=== PATIENT | male | born 1960 | race Caucasian/White ===

== ENCOUNTER 2016-12-21 21:39 | Inpatient (IN) | payer MEDICAID, OTHER ==
[~2016-12-21] VITALS: Ht 177.8 cm; Wt 102.8 kg
[~2016-12-21 21:39] MED LIST: ABIL5TAB6 PO; CELE10TA PO; LISI-519 PO; METF-382 PO; ONETKIT9
[2016-12-21] MEDS ORDERED: SODIUM CHLOR 0.9% 1000 ML INJ 1,000 ML IV SCH ×2 (21:50→22:28)
[2016-12-21 21:54] VITALS: BP 131/72; PULSE 114; RESP 20; TEMP 101.8; O2SAT 99
--- NOTE | 2016-12-21 21:59 | PD ---
HPI Chief Complaint: General Weakness Time Seen by Provider: 21:54 Travel History International Travel<30 days: No Contact w/Intl Traveler<30days: No Traveled to known affect area: No History of Present Illness HPI 56 male that presents to the ED for evaluation of weakness and diarrhea for the past 5 days. Per patient she's not been able to do much because of the weakness and diarrhea. Patient has a history of diabetes, depression as well as a chronic wound to the left leg. Patient was recently put back on medications for both depression, diabetes and has an appointment with Dr. Back for wound care for the left chronic wound. This was done at the end of last month when he was seen at her clinic. Per patient his been compliant with the medications. He is not able to check his blood sugars for the past couple days as he cannot really stand up because of the discomfort and weakness. He denies any headache. No pain of any kind. Per patient the diarrhea is watery. No blood. Patient states having fevers and chills as well. No abdominal pain. No recent surgeries. No recent travel. No sick contacts. No new foods. PFSH Past Medical History Anxiety: Yes Depression: Yes Endocrine: Yes (diabetes) Ulcer: Yes (chronic left foot ulcer) Social History Alcohol Use: No Tobacco Use: No Substance Use: No Allergies-Medications (Allergen,Severity, Reaction): Coded Allergies: No Known Allergies (Unverified , 12/06/16) Reported Meds & Prescriptions Reported Meds & Active Scripts Active Onetouch Ultra 2 Glucose System (Device) 1 Kit Kit 1 Kit .ROUTE DIRECTED Celexa (Citalopram Hydrobromide) 10 Mg Tab 10 Mg PO DAILY Abilify (Aripiprazole) 5 Mg Tab 5 Mg PO DAILY Lisinopril 5 Mg Tab 5 Mg PO DAILY Metformin ER (Metformin HCl) 1,000 Mg Stephanie 1,000 Mg PO DAILY With evening meal Review of Systems Except as stated in HPI: all other systems reviewed are Neg Physical Exam Narrative GENERAL: SKIN: Warm and dry. HEAD: Atraumatic. Normocephalic. EYES: Pupils equal and round. No scleral icterus. No injection or drainage. ENT: No nasal bleeding or discharge. Mucous membranes pink and moist. Tongue is midline. No uvula deviation. NECK: Trachea midline. No JVD. CARDIOVASCULAR: Regular rate and rhythm. No murmurs, S3, S4. RESPIRATORY: No accessory muscle use. Clear to auscultation. Breath sounds equal bilaterally. GASTROINTESTINAL: Abdomen soft, non-tender, nondistended. Hepatic and splenic margins not palpable. MUSCULOSKELETAL: Extremities without clubbing, cyanosis, or edema. No obvious deformities. Full range of motion of the lower extremities. Patient does have a circular ulceration that appears to be chronic with some purulence and foul smell coming from it on the plantar aspect of the left foot. About 5 cm in diameter. Nontender. 2+ pulses bilaterally. NEUROLOGICAL: Awake and alert. No obvious cranial nerve deficits. Motor grossly within normal limits. Five out of 5 muscle strength in the arms and legs. Normal speech. PSYCHIATRIC: Appropriate mood and affect; insight and judgment normal. Data Data Last Documented VS Vital Signs Date Time Temp Pulse Resp B/P Pulse Ox O2 Delivery O2 Flow Rate FiO2 12/21/16 21:54 101.8 114 20 131/72 99 Room Air Orders Electrocardiogram (12/21/16 21:50) Complete Blood Count With Diff (12/21/16 21:50) Comprehensive Metabolic Panel (12/21/16 21:50) Prothrombin Time / Inr (Pt) (12/21/16 21:50) Act Partial Throm Time (Ptt) (12/21/16 21:50) Blood Culture (12/21/16 21:50) Lipase (12/21/16 21:50) Urinalysis - C+S If Indicated (12/21/16 21:50) Magnesium (Mg) (12/21/16 21:50) Wound Culture And Gram Stain (12/21/16 21:50) C Diff Toxin Pcr (12/21/16 21:50) Chest, Single Ap (12/21/16 21:50) Iv Access Insert/Monitor (12/21/16 21:50) Ecg Monitoring (12/21/16 21:50) Oximetry (12/21/16 21:50) Foot, Complete ([id number]) (12/21/16 ) Lactic Acid (12/21/16 21:50) Sodium Chlor 0.9% 1000 Ml Inj (Ns 1000 M (12/21/16 21:50) Acetaminophen (Tylenol) (12/21/16 22:00) Sodium Chlor 0.9% 1000 Ml Inj (Ns 1000 M (12/21/16 22:28) [facility] Medical Decision Making Medical Screen Exam Complete: Yes Emergency Medical Condition: Yes Medical Record Reviewed: Yes Differential Diagnosis Sepsis versus osteomyelitis versus diarrhea versus C. difficile versus weakness versus pneumonia Narrative Course 56-year-old male that presents to the ED for evaluation of generalized weakness and diarrhea. Patient was properly examined and was found to have signs and symptoms consistent with weakness and diarrhea. My attending Dr. Burns evaluated the patient with me. Labs and imaging ordered. Patient was on IV fluids and Tylenol. Patient was signed out to my attending pending disposition and treatment plan. Vinnie Ledesma December 21, 2016 21:58
[2016-12-21] MEDS ORDERED: ACETAMINOPHEN 325 MG TAB PO ONE (22:00)
--- NOTE | 2016-12-21 22:43 | RADRPT ---
EXAM DATE/TIME: 12/21/2016 22:20 [facility] COMPARISON: No previous studies available for comparison. INDICATIONS : General weakness and chest pain. MEDICAL HISTORY : Diabetes mellitus type II. SURGICAL HISTORY : None. ENCOUNTER: Initial ACUITY: 3 days PAIN SCORE: 2/10 LOCATION: Bilateral chest FINDINGS: A single view of the chest demonstrates the lungs to be symmetrically aerated without evidence of mas s, infiltrate or effusion. The cardiomediastinal contours are unremarkable. Osseous structures are intact. CONCLUSION: No acute disease. Paramjit Bae MD on December 21, 2016 at 22:40 Board Certified Radiologist. This report was verified electronically.
--- NOTE | 2016-12-21 22:47 | RADRPT ---
EXAM DATE/TIME: 12/21/2016 22:25 [facility] COMPARISON: No previous studies available for comparison. INDICATIONS : Pain and swelling. MEDICAL HISTORY : Diabetes mellitus type II. SURGICAL HISTORY : Amputation, fifth digit. ENCOUNTER: Initial ACUITY: 3 days PAIN SCORE: 7/10 LOCATION: Left foot. FINDINGS: There is a previous fifth toe distal amputation. There is a mildly displaced fracture of the base of the fifth metatarsal. There is prominent soft tissue swelling involving the midfoot and forefoot with soft tissue air are seen dorsally at the midfoot level. CONCLUSION: Extensive soft tissue swelling and soft tissue gas. Previous fifth toe amputation with recent or ununited fracture at the base of the fifth metatarsal. Paramjit Bae MD on December 21, 2016 at 22:43 Board Certified Radiologist. This report was verified electronically.
--- NOTE | 2016-12-21 22:57 | PD ---
Physical Exam Date Seen by Provider: December 21, 2016 Time Seen by Provider: 20:00 Narrative I patient with Vinnie Ledesma PA-C. The patient is a patient of the resident clinic, who was recently seen and started on metformin, lisinopril, Abilify for his chronic medical conditions. The patient had not been seen for 3 years prior. He also has a chronic wound to his left foot for which he will be seeing Dr. Back in the wound clinic in the future. He presents today with complaints of global weakness. The patient has had diarrhea and loose stools for the last 5 days. He reports profound weakness. He denies any fevers , chills although he is febrile here. He reports not changing his left foot bandage for 3 days. He is a difficult historian and has somewhat of a flat affect. Data Data Last Documented VS Vital Signs Date Time Temp Pulse Resp B/P Pulse Ox O2 Delivery O2 Flow Rate FiO2 12/22/16 00:42 99.5 95 20 89/61 99 Room Air Orders Electrocardiogram (12/21/16 21:50) Complete Blood Count With Diff (12/21/16 21:50) Comprehensive Metabolic Panel (12/21/16 21:50) Prothrombin Time / Inr (Pt) (12/21/16 21:50) Act Partial Throm Time (Ptt) (12/21/16 21:50) Blood Culture (12/21/16 21:50) Lipase (12/21/16 21:50) Urinalysis - C+S If Indicated (12/21/16 21:50) Magnesium (Mg) (12/21/16 21:50) Wound Culture And Gram Stain (12/21/16 21:50) C Diff Toxin Pcr (12/21/16 21:50) Chest, Single Ap (12/21/16 21:50) Iv Access Insert/Monitor (12/21/16 21:50) Ecg Monitoring (12/21/16 21:50) Oximetry (12/21/16 21:50) Foot, Complete ([id number]) (12/21/16 ) Lactic Acid (12/21/16 21:50) Sodium Chlor 0.9% 1000 Ml Inj (Ns 1000 M (12/21/16 21:50) Acetaminophen (Tylenol) (12/21/16 22:00) Sodium Chlor 0.9% 1000 Ml Inj (Ns 1000 M (12/21/16 22:28) Vancomycin Inj (Vancomycin Inj) (12/22/16 00:30) Piperacil-Tazo 4.5 Gm Premix (Zosyn 4.5 (12/22/16 00:30) Sodium Chlor 0.9% 1000 Ml Inj (Ns 1000 M (12/22/16 00:45) Lactic Acid Sepsis Protocol (12/22/16 00:37) Admit Order (Ed Use Only) (12/22/16 00:50) Labs Laboratory Tests Test 12/21/16 12/22/16 22:53 00:51 White Blood Count 12.4 TH/MM3 Red Blood Count 2.64 MIL/MM3 Hemoglobin 8.3 GM/DL Hematocrit 24.9 % Mean Corpuscular Volume 94.3 FL Mean Corpuscular Hemoglobin 31.7 PG Mean Corpuscular Hemoglobin 33.6 % Concent Red Cell Distribution Width 17.0 % Platelet Count 89 TH/MM3 Mean Platelet Volume 9.5 FL Neutrophils (%) (Auto) 90.1 % Lymphocytes (%) (Auto) 1.6 % Monocytes (%) (Auto) 7.3 % Eosinophils (%) (Auto) 0.2 % Basophils (%) (Auto) 0.8 % Neutrophils # (Auto) 11.1 TH/MM3 Lymphocytes # (Auto) 0.2 TH/MM3 Monocytes # (Auto) 0.9 TH/MM3 Eosinophils # (Auto) 0.0 TH/MM3 Basophils # (Auto) 0.1 TH/MM3 CBC Comment AUTO DIFF Prothrombin Time 11.9 SEC Prothromb Time International 1.1 RATIO Ratio Activated Partial 30.1 SEC Thromboplast Time Sodium Level 134 MEQ/L Potassium Level 4.6 MEQ/L Chloride Level 101 MEQ/L Carbon Dioxide Level 19.0 MEQ/L Anion Gap 14 MEQ/L Blood Urea Nitrogen 68 MG/DL Creatinine 3.17 MG/DL Estimat Glomerular Filtration 20 ML/MIN Rate Random Glucose 107 MG/DL Lactic Acid Level 3.1 mmol/L 1.4 mmol/L Calcium Level 8.2 MG/DL Magnesium Level 1.9 MG/DL Total Bilirubin 0.6 MG/DL Aspartate Amino Transf 78 U/L (AST/SGOT) Alanine Aminotransferase 18 U/L (ALT/SGPT) Alkaline Phosphatase 89 U/L Total Protein 6.7 GM/DL Albumin 2.5 GM/DL Lipase 101 U/L [facility] Medical Record Reviewed: Yes Supervised Visit with ROLAN: Yes Interpretation(s) Last 24 hours Impressions Chest X-Ray 12/21/16 2150 Signed Impressions: Service Date/Time: Wednesday, December 21, 2016 22:20 - CONCLUSION: No acute disease. Paramjit Bae MD Foot X-Ray 12/21/16 0000 Signed Impressions: Service Date/Time: Wednesday, December 21, 2016 22:25 - CONCLUSION: Extensive soft tissue swelling and soft tissue gas. Previous fifth toe amputation with recent or ununited fracture at the base of the fifth metatarsal. Paramjit Bae MD Differential Diagnosis Sepsis versus osteomyelitis versus dehydration versus adverse reaction to new medications Narrative Course 56 year-old gentleman who presents with complaints of generalized weakness, fevers, left foot infection, diarrhea 5 days. The patient has an elevated white blood cell count patient. His lactic acid is greater than 3. The patient also has kidney injury with a creatinine above 3. He'll be started on vancomycin and Zosyn for his diabetic foot. Diagnoses likely the source of his sepsis. The patient's blood pressure dropped from initially 120 systolic to the 80s systolic. He's been given 3 L of crystalloid. His blood pressure still remains in the high 80s systolic. He'll be started on Levothroid. The case was discussed with Dr. Bradley, on-call supervisor metal furniture assembly, who agrees for the intensive care admission. He's been started on vancomycin and Zosyn. A second lactic acid has been ordered. Sepsis Criteria SIRS Criteria (2 or more): Temp > 100.9 or < 96.8, Heart rate over 90, WBC > 01127, < 4000 or > 10% bands Sepsis Criteria (SIRS+source): Infect source susp/known Severe Sepsis (+one): Lactate >2, Acute Oliguria/Renal Failure Criteria Outcome: Meets severe sepsis criteria Diagnosis Primary Impression: Sepsis Additional Impressions: Diabetic foot ulcer Anemia Chronic kidney disease Ochoa Burns MD December 21, 2016 22:57
[2016-12-21 23:27] LABS: ALKALINE PHOSPHATASE 89 U/L (45-117); ALT (GPT) 18 U/L (12-78); ANION GAP 14 MEQ/L (5-15); AST (GOT) 78 U/L (15-37); BLOOD UREA NITROGEN 68 MG/DL (7-18); CHLORIDE 101 MEQ/L (98-107); GLOMERULAR FILTRATION RATE 20 ML/MIN (>89); MAGNESIUM 1.9 MG/DL (1.5-2.5); POTASSIUM 4.6 MEQ/L (3.5-5.1); SODIUM (NA) 134 MEQ/L (136-145); TOTAL BILIRUBIN ADULT 0.6 MG/DL (0.2-1.0)
[2016-12-21 23:34] LABS: APTT (PATIENT) 30.1 SEC (24.3-30.1); AUTOMATED NEUTROPHIL # 11.1 TH/MM3 (1.8-7.7); BASOPHIL # 0.1 TH/MM3 (0-0.2); BASOPHIL % 0.8 % (0.0-2.0); EOSINOPHIL % 0.2 % (0.0-4.0); HEMATOCRIT 24.9 % (39.0-51.0); INTERNATIONAL NORMALIZED RATIO 1.1 RATIO; LYMPH % 1.6 % (9.0-44.0); LYMPHOCYTE # 0.2 TH/MM3 (1.0-4.8); MEAN CELL VOLUME 94.3 FL (80.0-100.0); MEAN CORPUSCULAR HEMOGLOBIN 31.7 PG (27.0-34.0); MEAN CORPUSCULAR HGB CONC 33.6 % (32.0-36.0); MONO % 7.3 % (0.0-8.0); NEUT % 90.1 % (16.0-70.0); PLATELET COUNT 89 TH/MM3 (150-450); PROTHROMBIN TIME - PATIENT 11.9 SEC (9.8-11.6); RED BLOOD COUNT 2.64 MIL/MM3 (4.50-5.90); WHITE BLOOD COUNT 12.4 TH/MM3 (4.0-11.0)
[2016-12-21 23:36] LABS: HEMO FLAGS AUTO DIFF
[2016-12-22] VITALS (12 sets, daily range): BP systolic 84–135; BP diastolic 47–69; PULSE 86–109; RESP 18–38; TEMP 98–101.5; O2SAT 93–100
[2016-12-22] MEDS ORDERED: VANCOMYCIN INJ 1,000 MG in SODIUM CHLOR 0.9% 250 ML INJ 250 ML IV ONE (00:30)
[2016-12-22] MEDS ORDERED: PIPERACIL-TAZO 4.5 GM PREMIX 100 ML IV ONE (00:30)
[2016-12-22] MEDS ORDERED: SODIUM CHLOR 0.9% 1000 ML INJ 1,000 ML IV ONE ×3 (00:45→01:45)
[2016-12-22] MEDS ORDERED: NOREPINEPHRINE-DEXTROSE DRIP 250 ML IV SCH (01:15)
[2016-12-22] MEDS ORDERED: SODIUM CHLORIDE 0.9% FLUSH 10 ML FLUSH IV FLUSH PRN (01:45)
[2016-12-22] MEDS ORDERED: VANCOMYCIN INJ 1,000 MG in SODIUM CHLOR 0.9% 250 ML INJ 250 ML IV SCH (01:45)
[2016-12-22] MEDS ORDERED: RESP: ALBUTEROL 2.5 MG/IPRATROPIUM 0.5 MG NEB (PRN) INH (01:45)
[2016-12-22] MEDS ORDERED: MISCELLANEOUS NURSING INFORMATION XX SCH (01:45)
[2016-12-22] MEDS ORDERED: CHLORHEXIDINE GLUCONATE 2 % 1 PACK (2 CLOTHS) TOP PRN (01:45)
[2016-12-22] MEDS ORDERED: Vancomycin Consult Pharmacy 1 EA OTHER SCH (01:45)
[2016-12-22 01:56] LABS: BLOOD GAS BASE EXCESS -7.4 mmol/L (-2-2); BLOOD GAS CARBOXYHEMOGLOBIN 1.8 % (0-4); BLOOD GAS HCO3 16 mmol/L (22-26); BLOOD GAS METHEMOGLOBIN 0.8 % (0-2); BLOOD GAS O2 HGB SATURATION 94 % (90-100); BLOOD GAS OXYGEN CONTENT 9.5 Vol % (12.0-20.0); BLOOD GAS PCO2 25 mmHg (38-42); BLOOD GAS PO2 83 mmHG (61-120); BLOOD GAS TOTAL HGB 7.1 G/DL (12.0-16.0); TEMP CORR TO 98.6
[2016-12-22 01:57] LABS: CRITICAL VALUE YES; DRAW SITE RT BRACHIAL; FIO2 21 %; NUMBER OF ARTERIAL PUNCTURES 1; OXYGEN DEVICE ROOM AIR; STAT YES; ULNAR PULSE PRESENT
[2016-12-22] MEDS: HEPARIN SODIUM - SQ 10,000 UNITS/ML VIAL SQ SCH ×3 (02:27→17:47)
[2016-12-22] MEDS: HYDROCORTISONE SOD SUCCINATE 100 MG VIAL IV SCH ×2 (02:28→09:17)
[2016-12-22] MEDS: SODIUM CHLOR 0.9% 1000 ML INJ 1,000 ML IV SCH ×4 (02:31→15:15)
[2016-12-22 02:55] LABS: BANDS 25 % (0-6); DOHLE BODIES PRESENT (NONE SEEN); METAMYELOCYTES 3 % (0-1); NEUTROPHIL # MANUAL DIFF 10.7 TH/MM3 (1.8-7.7); PLATELET ESTIMATE SMEAR LOW (NORMAL); PLATELET MORPHOLOGY NORMAL (NORMAL); POLYS (SEG NEUTROPHILS) 58 % (16-70); SCAN/DIFF FINAL DIFF MANUAL; TOXIC VACUOLATION PRESENT (NONE SEEN); WBC DIFF SAMPLE 100
[2016-12-22] MEDS ORDERED: VANCOMYCIN INJ 1,500 MG in SODIUM CHLORID 0.9% 500 ML INJ 500 ML IV SCH (03:00)
[2016-12-22] MEDS: VANCOMYCIN INJ 500 MG in SODIUM CHLORIDE 0.9% INJ 100 ML IV SCH ×2 (03:30→05:00)
[2016-12-22] MEDS: CHLORHEXIDINE GLUCONATE 2 % 1 PACK (2 CLOTHS) TOP SCH (04:00)
--- NOTE | 2016-12-22 05:24 | HHI.HP ---
HPI Service Critical Care Medicine Primary Care Physician Freddie Barahona MD Admission Diagnosis Sepsis, diabetic foot, kidney injury, anemia, Diagnosis: Travel History International Travel<30 Days: No Contact w/Intl Traveler <30 Da: No Traveled to Known Affected Are: No History of Present Illness 56 year old obese male with history of diabetes, recently started on metformin and Abilify, presents for evaluation of weakness and diarrhea for the past 5 days. He has a history of diabetes, depression as well as a chronic wound to the left leg. Patient was recently put back on medications for both depression , diabetes and has an appointment with Dr. Back for wound care for the left chronic wound. This was done at the end of last month when he was seen at [facility]. Per patient he has been compliant with the medications. He is not able to check his blood sugars for the past couple days as he cannot really stand up because of the discomfort and weakness. Review of Systems Constitutional: COMPLAINS OF: Dizziness, DENIES: Diaphoretic episodes, Fatigue , Fever, Weight gain, Weight loss, Chills, Change in appetite, Night Sweats Endocrine: DENIES: Heat/cold intolerance, Polydipsia, Polyuria, Polyphagia Eyes: DENIES: Blurred vision, Diplopia, Eye inflammation, Eye pain, Vision loss , Photosensitivity, Double Vision Ears, nose, mouth, throat: DENIES: Tinnitus, Hearing loss, Vertigo, Nasal discharge, Oral lesions, Throat pain, Hoarseness, Ear Pain, Running Nose, Epistaxis, Sinus Pain, Toothache, Odynophagia Respiratory: DENIES: Apneas, Cough, Snoring, Wheezing, Hemoptysis, Sputum production, Shortness of breath Cardiovascular: DENIES: Chest pain, Palpitations, Syncope, Dyspnea on Exertion , PND, Lower Extremity Edema, Orthopnea, Claudication Gastrointestinal: DENIES: Abdominal pain, Black stools, Bloody stools, Constipation, Diarrhea, Nausea, Vomiting, Difficulty Swallowing, Anorexia Genitourinary: DENIES: Sexual dysfunction, Urinary frequency, Urinary incontinence, Urgency, Hematuria, Dysuria, Nocturia, Penile Discharge, Testicular Pain, Testicular Swelling Musculoskeletal: DENIES: Joint pain, Muscle aches, Stiffness, Joint Swelling, Back pain, Neck pain Integumentary: DENIES: Abnormal pigmentation, Nail changes, Pruritus, Rash Immunologic/allergic: DENIES: Eczema, Urticaria Psychiatric: DENIES: Anxiety, Confusion, Mood changes, Depression, Hallucinations, Agitation, Suicidal Ideation, Homicidal Ideation, Delusions Past Family Social History Allergies: Coded Allergies: No Known Allergies (Unverified , 12/06/16) Past Medical History Diabetes type 2 Hypertension Depression Anxiety Chronic left foot ulcer Past Surgical History Toe amputation Reported Medications Reported Meds & Active Scripts Active Onetouch Ultra 2 Glucose System (Device) 1 Kit Kit 1 Kit .ROUTE DIRECTED Celexa (Citalopram Hydrobromide) 10 Mg Tab 10 Mg PO DAILY Abilify (Aripiprazole) 5 Mg Tab 5 Mg PO DAILY Lisinopril 5 Mg Tab 5 Mg PO DAILY Metformin ER (Metformin HCl) 1,000 Mg Stephanie 1,000 Mg PO DAILY With evening meal Active Ordered Medications Current Medications Medications (Trade) Dose Ordered Sig/Jeffy Route PRN Reason Start Time Stop Time Status Last Admin Dose Admin Norepinephrine Bitartrate (Levophed-Dextrose Drip) 250 ml @ 0 mls/hr TITRATE IV 12/22/16 01:15 12/22/16 01:51 Aripiprazole (Abilify) 5 mg DAILY PO 12/22/16 09:00 Citalopram Hydrobromide 10 mg 10 mg DAILY PO 12/22/16 09:00 Sodium Chloride (NS 1000 ml Inj) 1,000 ml @ 175 mls/hr Q5H43M IV 12/22/16 01:45 12/22/16 02:31 Sodium Chloride (NS Flush) 2 ml UNSCH PRN IV FLUSH FLUSH AFTER USING IV ACCESS 12/22/16 01:45 Sodium Chloride (NS Flush) 2 ml BID IV FLUSH 12/22/16 09:00 Hydrocortisone Sodium Succinate (SoluCORTEF INJ) 50 mg Q6H IV 12/22/16 02:00 12/22/16 02:28 Famotidine (Pepcid Inj) 20 mg Q12HR IV PUSH 12/22/16 09:00 Heparin Sodium (Porcine) 5000 units 5,000 units Q8H SQ 12/22/16 02:00 12/22/16 02:27 Pharmacy Profile Note 0 ml @ 0 mls/hr UNSCH OTHER 12/22/16 01:45 Piperacillin Sod/ Tazobactam Sod (Zosyn 4.5 Gm Premix) 100 ml @ 200 mls/hr Q6H IV 12/22/16 08:00 Miscellaneous Information 1 Q361D XX 12/22/16 01:45 12/22/16 01:45 Chlorhexidine Gluconate (Chlorhexidine 2% Cloth) 3 pack Taper DAILY@04 TOP 12/22/16 04:00 12/18/17 03:59 Chlorhexidine Gluconate 3 pack 3 pack UNSCH PRN TOP HYGIENIC CARE 12/22/16 01:45 Vancomycin HCl/ Sodium Chloride (Vancomycin Inj/ NS Inj) 105 ml @ 250 mls/hr DAILY@0330 IV 12/22/16 03:30 12/22/16 07:30 12/22/16 05:00 Family History Noncontributory Social History Denies tobacco alcohol or illicit drug abuse Physical Exam Vital Signs Vital Signs Date Time Temp Pulse Resp B/P Pulse Ox O2 Delivery O2 Flow Rate FiO2 12/22/16 04:00 98.5 89 22 123/57 93 12/22/16 01:51 90 18 86/50 96 Room Air 12/22/16 01:02 90 20 84/47 99 Room Air 12/22/16 00:42 99.5 95 20 89/61 99 Room Air 12/21/16 21:54 101.8 114 20 131/72 99 Room Air Physical Exam GENERAL: Well-nourished, well-developed patient. SKIN: Warm and dry. HEAD: Normocephalic. EYES: No scleral icterus. No injection or drainage. NECK: Supple, trachea midline. No JVD or lymphadenopathy. CARDIOVASCULAR: Regular rate and rhythm without murmurs, gallops, or rubs. RESPIRATORY: Breath sounds equal bilaterally. No accessory muscle use. GASTROINTESTINAL: Abdomen soft, non-tender, nondistended. MUSCULOSKELETAL: No cyanosis, or edema. BACK: Nontender without obvious deformity. No CVA tenderness. EXTREMITIES: Chronic left foot ulcer, bilateral edema Laboratory Laboratory Tests Test 12/21/16 12/22/16 12/22/16 22:53 00:51 01:48 Prothrombin Time 11.9 Prothromb Time International 1.1 Ratio Activated Partial 30.1 Thromboplast Time Sodium Level 134 Potassium Level 4.6 Chloride Level 101 Carbon Dioxide Level 19.0 Anion Gap 14 Blood Urea Nitrogen 68 Creatinine 3.17 Estimat Glomerular Filtration 20 Rate Random Glucose 107 Lactic Acid Level 3.1 1.4 Calcium Level 8.2 Magnesium Level 1.9 Total Bilirubin 0.6 Aspartate Amino Transf 78 (AST/SGOT) Alanine Aminotransferase 18 (ALT/SGPT) Alkaline Phosphatase 89 Total Protein 6.7 Albumin 2.5 Lipase 101 White Blood Count 12.4 Red Blood Count 2.64 Hemoglobin 8.3 Hematocrit 24.9 Mean Corpuscular Volume 94.3 Mean Corpuscular Hemoglobin 31.7 Mean Corpuscular Hemoglobin 33.6 Concent Red Cell Distribution Width 17.0 Platelet Count 89 Mean Platelet Volume 9.5 Neutrophils (%) (Auto) 90.1 Lymphocytes (%) (Auto) 1.6 Monocytes (%) (Auto) 7.3 Eosinophils (%) (Auto) 0.2 Basophils (%) (Auto) 0.8 Neutrophils # (Auto) 11.1 Lymphocytes # (Auto) 0.2 Monocytes # (Auto) 0.9 Eosinophils # (Auto) 0.0 Basophils # (Auto) 0.1 CBC Comment AUTO DIFF Differential Total Cells 100 Counted Neutrophils % (Manual) 58 Band Neutrophils % 25 Lymphocytes % 8 Monocytes % 6 Neutrophils # (Manual) 10.7 Metamyelocytes 3 Differential Comment FINAL DIFF MANUAL Toxic Vacuolation PRESENT Dohle Bodies PRESENT Platelet Estimate LOW Platelet Morphology Comment NORMAL Blood Gas Puncture Site RT BRACHIAL Blood Gas Patient Temperature 98.6 Blood Gas HCO3 16 Blood Gas Base Excess -7.4 Blood Gas Oxygen Saturation 94 Arterial Blood pH 7.42 Arterial Blood Partial 25 Pressure CO2 Arterial Blood Partial 83 Pressure O2 Arterial Blood Oxygen Content 9.5 Arterial Blood 1.8 Carboxyhemoglobin Arterial Blood Methemoglobin 0.8 Blood Gas Hemoglobin 7.1 Oxygen Delivery Device ROOM AIR Blood Gas Inspired Oxygen 21 Date/Time Procedure Status Source Growth 12/21/16 22:40 Aerobic Blood Culture Received Blood Peripheral Pending 12/21/16 22:40 Anaerobic Blood Culture Received Blood Peripheral Pending 12/21/16 22:36 Gram Stain Received Wound Foot Pending 12/21/16 22:36 Wound Culture Received Wound Foot Pending Result Diagram: 12/21/16225212/21/162252 Imaging Last 24 hours Impressions Chest X-Ray 12/21/162149 Signed Impressions: Service Date/Time: Wednesday, December 21, 2016 22:20 - CONCLUSION: No acute disease. Paramjit Bae MD Assessment and Plan Assessment and Plan Sepsis - Probably Due to cellulitis - IV fluid resuscitation - Broad-spectrum antibiotic - Panculture - Follow-up microbiology results Diabetes - Hold metformin - Possible source of lactic acidosis - Check ABG - Insulin sliding scale Hypotension - Hold antihypertensive meds - Aggressive IV fluids resuscitation Chronic left food ulcer - Wound care consult DVT GI prophylaxis - Subcutaneous heparin and Pepcid Critical Care: The total critical care time was 35 minutes. Time to perform other separately billable procedures was not included in the critical care time. Marcellus Bradley MD December 22, 2016 05:24
[2016-12-22] MEDS ORDERED: GLUCAGON 1 MG/ML VIAL OTHER PRN ×2 (05:30→15:45)
[2016-12-22] MEDS ORDERED: DEXTROSE 50% IN WATER 50 ML VIAL(D50) IV PUSH PRN ×2 (05:30→15:45)
[2016-12-22] MEDS ORDERED: PIPERACIL-TAZO 4.5 GM PREMIX 100 ML IV SCH (08:00)
[2016-12-22] MEDS: INSULIN ASPART SUPPLEMENTAL SCALE SQ SCH ×4 (08:56→21:00)
[2016-12-22] MEDS: FAMOTIDINE 20 MG/2 ML VIAL IV PUSH SCH ×2 (09:16→20:45)
[2016-12-22] MEDS: CITALOPRAM HYDROBROMIDE 20 MG TAB PO SCH (09:16)
[2016-12-22] MEDS: SODIUM CHLORIDE 0.9% FLUSH 10 ML FLUSH IV FLUSH SCH ×2 (09:17→20:45)
[2016-12-22] MEDS: ARIPiprazole 5 MG TAB PO SCH (10:44)
[2016-12-22] MEDS: ACETAMINOPHEN 325 MG TAB PO PRN (13:04)
--- NOTE | 2016-12-22 14:02 | EKG ---
Date Performed: 12/21/2016 Time Performed: 21:58:59 PTAGE: 56 years EKG: SINUS TACHYCARDIA Marked baseline artifact precluding interpretation of some leads, repeat tracing advised. BORDERLINE ECG NO PREVIOUS TRACING DOCTOR: Caroline Jameson Interpretating Date/Time 12/22/2016 14:01:16
--- NOTE | 2016-12-22 14:29 | MB ---
cc: CCList DATE OF CONSULTATION: 12/22/2016 REASON FOR CONSULTATION: Left foot ulcer abscess possible gas tissue. HISTORY OF PRESENT ILLNESS This is a 56-year-old diabetic male with a longstanding history of bone infection, fifth digit amputation. He has a history of chronic wound. He was in line to see a wound care doctor, Dr. Back however started to have elevated blood sugars discomfort and some weakness. The patient was admitted to the unit was signs of sepsis x-ray showed gas in the tissue. Currently I am seeing the patient bedside. He is alert. He is appropriate. He does not feel well. PAST MEDICAL HISTORY: 1. Past medical history is positive for diabetes 2. peripheral neuropathy 3. Osteomyelitis 4. chronic edema 5. Anxiety 6. Hypertension. OUTPATIENT MEDICATIONS: Outpatient medications reviewed. No antibiotics listed. INPATIENT MEDICATIONS: Inpatient medications also reviewed. He is receiving Zosyn Vancomycin. ALLERGIES NO KNOWN DRUG ALLERGIES PHYSICAL EXAMINATION: VITAL SIGNS: Temperature is 101.5, respiratory rate is 20, blood pressure is 135/58. He is satting 98% on room air. IN GENERAL: This is an alert and oriented obese gentleman seen bedside exhibiting nonlabored respirations. EXTREMITIES: The left lower extremity is examined. There is noted be edema, erythema a plantar ulceration that possibly probes to the base of the fifth metatarsal cuboid area. There is a mild odor upon pressure to the dorsum of the foot there appears to be soft tissue crepitus upon palpating the ankle in the leg. There is no obvious signs of crepitus or ascending infection. The foot is warm. Sensation is decreased to light touch. However, pulses are hard to palpate but the digits appear to have good capillary fill time. LABORATORY FINDINGS White blood cells 12.4, hemoglobin/hematocrit 88 and 24, platelet count is 89. Chem-7 sodium 134, potassium 4.6, chloride 101, CO2 is 19, BUN is 68, creatinine 3.16, random glucose is 107. Microbial findings blood culture no growth 1 day. Wound culture likely superficial predominant gram-negative coccobacilli. IMAGING STUDIES: Imaging findings foot x-ray extensive soft tissue swelling with gas at the dorsum of the foot, previous fifth digit amputation with united or recent base of fifth metatarsal fracture. ASSESSMENT/PLAN Left foot severe infection with gas within the tissue due to the urgency of the nature. The patient was consented bedside and utilizing sterile technique. A linear incision was made over the dorsum of the foot and to explore exposed the gas to prevent further spread the wound was then packed open. The patient tolerated the procedure. He did not need anesthesia due to the extent of his peripheral neuropathy. My recommendation is an MRI to visualize the extent of the abscess and osteomyelitic bone within the next 12-18 hours, the patient will have a repeat incision and drainage much more expansile and possible involving multiple bone biopsies to determine the extent of this infection. The patient understood and was explained the severity the infection that this may lead to loss of limb if this continues to extend up the leg. He wishes for limb salvage all efforts. I saw the patient at bedside with critical care team. The patient was consented n.p.o. after midnight. HAMZAH Bridges/jone /1:57 PM /2:09 PM
--- NOTE | 2016-12-22 14:49 | HHI.HP ---
[facility] Service Family Medicine Primary Care Physician Freddie Barahona MD Admission Diagnosis Sepsis, diabetic foot, kidney injury, anemia, Diagnoses: International Travel<30 Days: No Contact w/Intl Traveler<30days: No Known Affected Area: No History of Present Illness Patient is a 56-year-old male with a past medical history of type 2 diabetes, chronic left foot ulcer of at least 3 years, and depression that presented to the [place] ED with a chief complaint of nausea, vomiting, diarrhea , and fatigue for 5 days duration. Patient states that on Monday 12/18, he started having nonbloody, non-mucus diarrhea at least 3-4 times a day. He felt so weak that she had difficulty walking and sitting up/getting up from bed or a chair. He did not feel feverish but had chills constantly. Patient denies dysuria but states that his urine looked orange in color. He also had decreased by mouth intake due to nausea, vomiting, and dry heaving. Patient was recently restarted on metformin for diabetes and Abilify and Celexa for depression at his PCP visits with Dr. Sam Barahona, PGY 2 on 12/08. He was also scheduled to see controller coal or ore Dr. Back at the wound care at the wound care clinic next week for management of his foot ulcer. Patient states that he lives at home with his aunt. Dr. Gavin spoke with patient's relative, Dr. Botello ([phone]), who mentioned to him that the patient lives with his mom who is 90 years old and demented. Patient has decreased ability to take care of himself and may need placement in a different living situation. The foot ulcer is chronic and patient has dealt with it for at least 3 years. Previous debridements were performed by Dr. Jonas cárdenas who is an orthopedic surgeon in on Saturday. Patient states that he was not able to continue management of the ulcer and diabetes in the last 2 years due to personal issues. Review of Systems Constitutional: COMPLAINS OF: Fatigue, Fever, Chills, Change in appetite Eyes: COMPLAINS OF: Blurred vision, DENIES: Vision loss Ears, nose, mouth, throat: DENIES: Nasal discharge, Throat pain, Running Nose Respiratory: DENIES: Cough, Shortness of breath Cardiovascular: DENIES: Chest pain Gastrointestinal: COMPLAINS OF: Diarrhea, Nausea, Vomiting, DENIES: Abdominal pain, Bloody stools Genitourinary: DENIES: Dysuria Integumentary: DENIES: Rash Neurologic: DENIES: Headache Psychiatric: COMPLAINS OF: Anxiety, Depression, DENIES: Suicidal Ideation, Homicidal Ideation Past Family Social History Past Medical History Diabetes type 2 Hypertension Depression Anxiety Past Surgical History Left fifth metatarsal amputation Reported Medications Reported Meds & Active Scripts Active Onetouch Ultra 2 Glucose System (Device) 1 Kit Kit 1 Kit .ROUTE DIRECTED Celexa (Citalopram Hydrobromide) 10 Mg Tab 10 Mg PO DAILY Abilify (Aripiprazole) 5 Mg Tab 5 Mg PO DAILY Lisinopril 5 Mg Tab 5 Mg PO DAILY Metformin ER (Metformin HCl) 1,000 Mg Stephanie 1,000 Mg PO DAILY With evening meal Allergies: Coded Allergies: No Known Allergies (Unverified , 12/06/16) Family History Parents are , father of Alzheimer's Social History Marital Status: Single Living Situation: Currently residing with his cousin's mother Education: 3 years post college Work history: Unemployed. 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 SKIN: Warm left lower extremity, venostasis changes of both lower extremities, worse on left with cellulitic changes and pitting edema HEAD: Atraumatic. Normocephalic. No temporal or scalp tenderness. EYES: Pupils equal round and reactive. Extraocular motions intact. No scleral icterus. No injection or drainage. ENT: Nose without bleeding, purulent drainage or septal hematoma. Throat without erythema, tonsillar hypertrophy or exudate. Uvula midline. Airway patent. NECK: Trachea midline. No JVD or lymphadenopathy. Supple, nontender, no meningeal signs. CARDIOVASCULAR: Regular rate and rhythm without murmurs, gallops, or rubs. Unable to palpate pulses in left foot RESPIRATORY: Clear to auscultation. Breath sounds equal bilaterally. No wheezes , rales, or rhonchi. GASTROINTESTINAL: Abdomen soft, non-tender, nondistended. No hepato-splenomegaly , or palpable masses. No guarding. MUSCULOSKELETAL: Left lower extremity slightly larger than the right. Left foot wrapped in gauze. Please see controller coal or ore's note for description of left foot ulcer. Please see skin description above NEUROLOGICAL: Awake and alert. Cranial nerves II through XII intact. Sensation diminished in left foot compared to the right, some sensation present in distal left lower extremity. Laboratory Laboratory Tests Test 12/21/16 12/22/16 12/22/16 12/22/16 22:53 00:51 01:48 03:40 Prothrombin Time 11.9 Prothromb Time International 1.1 Ratio Activated Partial 30.1 Thromboplast Time Sodium Level 134 Potassium Level 4.6 Chloride Level 101 Carbon Dioxide Level 19.0 Anion Gap 14 Blood Urea Nitrogen 68 Creatinine 3.17 Estimat Glomerular Filtration 20 Rate Random Glucose 107 Lactic Acid Level 3.1 1.4 Calcium Level 8.2 Magnesium Level 1.9 Total Bilirubin 0.6 Aspartate Amino Transf 78 (AST/SGOT) Alanine Aminotransferase 18 (ALT/SGPT) Alkaline Phosphatase 89 Total Protein 6.7 Albumin 2.5 Lipase 101 White Blood Count 12.4 Red Blood Count 2.64 Hemoglobin 8.3 Hematocrit 24.9 Mean Corpuscular Volume 94.3 Mean Corpuscular Hemoglobin 31.7 Mean Corpuscular Hemoglobin 33.6 Concent Red Cell Distribution Width 17.0 Platelet Count 89 Mean Platelet Volume 9.5 Neutrophils (%) (Auto) 90.1 Lymphocytes (%) (Auto) 1.6 Monocytes (%) (Auto) 7.3 Eosinophils (%) (Auto) 0.2 Basophils (%) (Auto) 0.8 Neutrophils # (Auto) 11.1 Lymphocytes # (Auto) 0.2 Monocytes # (Auto) 0.9 Eosinophils # (Auto) 0.0 Basophils # (Auto) 0.1 CBC Comment AUTO DIFF Differential Total Cells 100 Counted Neutrophils % (Manual) 58 Band Neutrophils % 25 Lymphocytes % 8 Monocytes % 6 Neutrophils # (Manual) 10.7 Metamyelocytes 3 Differential Comment FINAL DIFF MANUAL Toxic Vacuolation PRESENT Dohle Bodies PRESENT Platelet Estimate LOW Platelet Morphology Comment NORMAL Blood Gas Puncture Site RT BRACHIAL Blood Gas Patient Temperature 98.6 Blood Gas HCO3 16 Blood Gas Base Excess -7.4 Blood Gas Oxygen Saturation 94 Arterial Blood pH 7.42 Arterial Blood Partial 25 Pressure CO2 Arterial Blood Partial 83 Pressure O2 Arterial Blood Oxygen Content 9.5 Arterial Blood 1.8 Carboxyhemoglobin Arterial Blood Methemoglobin 0.8 Blood Gas Hemoglobin 7.1 Oxygen Delivery Device ROOM AIR Blood Gas Inspired Oxygen 21 Nasal Screen MRSA (PCR) MRSA NOT DETECTED Date/Time Procedure Status Source Growth 12/22/16 04:58 Aerobic Blood Culture Received Blood Peripheral Pending 12/22/16 04:58 Anaerobic Blood Culture Received Blood Peripheral Pending 12/21/16 22:40 Aerobic Blood Culture - Preliminary Resulted Blood Peripheral NO GROWTH IN 1 DAY 12/21/16 22:40 Anaerobic Blood Culture - Preliminary Resulted Blood Peripheral NO GROWTH IN 1 DAY 12/21/16 22:36 Gram Stain - Final Resulted Wound Foot 12/21/16 22:36 Wound Culture Resulted Wound Foot Pending Result Diagram: 12/21/16 2253 12/21/16 2253 Imaging Last 48 hours Impressions Chest X-Ray 12/21/16 2150 Signed Impressions: Service Date/Time: Wednesday, December 21, 2016 22:20 - CONCLUSION: No acute disease. Paramjit Bae MD Foot X-Ray 12/21/16 0000 Signed Impressions: Service Date/Time: Wednesday, December 21, 2016 22:25 - CONCLUSION: Extensive soft tissue swelling and soft tissue gas. Previous fifth toe amputation with recent or ununited fracture at the base of the fifth metatarsal. Paramjit Bae MD Septic Shock Reassessment Heart: Regular rate and rhythm Lungs: Clear Skin: Warm Assessment and Plan Assessment and Plan 56-year-old male with a past medical history of complicated type 2 diabetes presents with sepsis after 5 days of nausea, vomiting, diarrhea and generalized fatigue. Probable source is left foot diabetic ulcer. He was admitted for IV fluid rehydration and treatment with IV antibiotics. Podiatry was consulted for foot ulcer management. Bedside debridement was performed today 12/22. Patient is currently nothing by mouth for further evaluation in the OR tomorrow 12/23. The patient was initially admitted to the import/export administrator team due to hypotension, systolic BP was in the 80s. He was stabilized with fluid resuscitation and was transferred to the [facility] hospitalist team today. He will be transferred from the ICU to a medical floor tomorrow 12/23. Code Status Full code Discussed Condition With Seen and examined with Dr. Gab Bryan, PGY 1 Problem List: (1) Sepsis Status: Acute Plan: -Patient's febrile to 101.8F, pulse 114, respirations 20, O2 saturation 99% on room air on admission -Initial blood pressure was 131/72 and dropped to the mid-80s systolic -Lactic acid was elevated at 3.1 and later dropped to 1.4 -White blood cells elevated at 12.4 with 25% bands -Probable source of sepsis is left foot ulcer and left foot cellulitis -Blood cultures show no growth 1 day -Wound cultures show heavy growth mixed gram-positive and gram-negative vibha on preliminary report. Further ID to follow -Patient received 3 1L normal saline boluses in the ED which he responded appropriately to, no pressors were required -He was started on Vanco and Zosyn, vancomycin was discontinued on 12/22 a.m. -Currently on Zosyn and clindamycin per infectious disease recommendations -Continue normal saline at 175 mls/hr -Podiatry performed debridement at bedside of left foot ulcer -Further evaluation will be performed in the OR tomorrow (2) Cellulitis Status: Acute Plan: -Cellulitis of left lower leg and left foot -See plan above for sepsis (3) Diabetic foot ulcer Status: Chronic Plan: -Maladorous, severe, edematous, erythematous plantar ulceration that possibly probes to the base of the fifth metatarsal cuboid area with soft tissue crepitus on palpation of the ankle based on controller coal or ore Dr. Ramirez exam -Foot x-ray shows extensive soft tissue swelling with gas at the dorsum of the foot, previous fifth digit amputation with united or recent base of fifth metatarsal fracture -Bedside debridement was performed by Dr. Ramirez -MRI of left foot pending -Currently nothing by mouth for further evaluation for osteomyelitis in the OR tomorrow with controller coal or ore (4) Acute renal failure superimposed on stage 3 chronic kidney disease Status: Acute Plan: -Creatinine 3.17 on admission with estimated GFR of 20 -This is most likely secondary to acute kidney injury in the setting of sepsis with underlying chronic kidney disease in the setting of diabetes -Creatinine 1.33 with GFR of 59 on labs obtained on 12/11, no other baseline creatinine could be found -GFR of 59 places him in CKD stage III which is upgraded to stage IV with current GFR of 20 -Urine creatinine albumin ratio elevated at 173.2 (reference range of 0-30) -Patient received 3 L normal saline boluses in the ED -Continue normal saline at 175 mL hour, repeat labs in the a.m. -Consider renal ultrasound if kidney status does not return to baseline (5) Anemia Status: Acute Plan: -Hemoglobin 8.3, hematocrit 24.9, RBC low at 2.64 -Suspect anemia due to low erythropoietin from kidney disease as well as malnutrition -We'll continue to monitor - follow-up CBC at 1800 -Transfuse 2 units PRBC if hemoglobin less than 7 all less than 8 and symptomatic (6) Diabetes Status: Acute Plan: -Hemoglobin A1c on 12/11 was 6.9 -Random glucose on 12/11 was 110 and 107 on 12/21 in the hospital -Patient takes metformin 1000 mg by mouth daily which is currently on hold -It is possible that metformin may have attributed to patient's diarrheal episodes. Metformin was recently restarted on 12/08 by patient's PCP. He may need to be discharged with a different oral diabetes medication. -Continue low-dose sliding scale insulin - consider increasing to medium dose sliding scale as needed (7) Chronic kidney disease Status: Acute Plan: -Creatinine 3.17, BUN 68 on admission with estimated GFR of 20 -This is most likely secondary to acute kidney injury in the setting of sepsis with underlying chronic kidney disease in the setting of diabetes -Creatinine 1.33 with GFR of 59 on labs obtained on 12/11, no other baseline creatinine could be found -GFR of 59 places him in CKD stage III -Urine creatinine albumin ratio elevated at 173.2 (reference range of 0-30) -Consider renal consult if creatinine does not improve with fluid hydration -Recheck BMP at 1800 today (8) Social issues Status: Acute Plan: -Dr. Gavin spoke with patient's family member who states that the patient lives with his mom who is 90 years old and has dementia -Patient has decreased ability to take care of himself and could barely move with this recent illness -Family member insists that patient should not return to former living situation -Case management consult ordered to assist with disposition issues -Due to history of depression with suicidal ideation, psychiatry was consulted for management recommendations (9) Anxiety and depression Status: Acute Plan: -Continue home Abilify 5 mg by mouth daily and Celexa 10 mg by mouth daily -Celexa may not be an appropriate medication for this patient due to adverse effect of diarrhea in some patients -Psychiatry consult as above (10) Hyperlipidemia Status: Acute Plan: -Labs from 12/11 show elevated LDL of 120 -10 year ASCVD risk score is 12% - recommendation is for a high-intensity statin -We'll hold off on starting a statin until patient's clinical status improves -To be discharged on atorvastatin (11) FEN/DVT PPX/GI PPX Status: Acute Plan: Fluids: NS @175 mls/hr IV Electrolytes: Will monitor and replace as needed Nutrition: Nothing by mouth at midnight with by mouth meds for OR procedure tomorrow. Otherwise, diabetic diet DVT Prophylaxis: Heparin subcutaneous every 8 hours GI Prophylaxis: Famotidine 10 mg IV every 12 hours -Monitor I's and O's -Neurochecks -monitor worker with telemetry -Continuous vital signs -Activity bed rest Physician Certification 2 Midnight Certification Type: Admission for Inpatient Services Order for Inpatient Services The services are ordered in accordance with Medicare regulations or non- Medicare payer requirements, as applicable. In the case of services not specified as inpatient-only, they are appropriately provided as inpatient services in accordance with the 2-midnight benchmark. Estimated LOS (days): 3 days is the estimated time the patient will need to remain in the hospital, assuming treatment plan goals are met and no additional complications. Post-Hospital Plan: Not yet determined Problem Qualifiers (1) Sepsis: Qualified Code: A41.9 - Sepsis, due to unspecified organism (2) Diabetic foot ulcer: Qualified Code: E11.621 - Diabetic ulcer of toe of left foot associated with type 2 diabetes mellitus, unspecified ulcer stage (3) Anemia: Qualified Code: D64.9 - Anemia, unspecified type (4) Diabetes: Qualified Code: E11.42 - Type 2 diabetes mellitus with diabetic polyneuropathy , without long-term current use of insulin (5) Chronic kidney disease: Qualified Code: N18.9 - Chronic kidney disease, unspecified CKD stage Maeve Gusman MD R1 December 22, 2016 14:49
[2016-12-22] MEDS: PIPERACIL-TAZO 2.25 GM PREMIX 50 ML IV SCH ×2 (15:15→20:45)
--- NOTE | 2016-12-22 16:19 | MB ---
cc: SOFIA ALLAN MD DATE OF CONSULTATION: 12/22/2016. REASON FOR CONSULTATION: Sepsis, infected left leg ulcer, diabetes mellitus. REQUESTING PHYSICIAN: Dr. Delano Gavin. HISTORY OF PRESENT ILLNESS: This is a 56-year-old white male who has history of diabetes mellitus. The patient presented with weakness and diarrhea. The patient was noted to have a wound ulcer at the dorsum of his left foot and he was felt to likely be septic from the left foot infection. On admission, he had a temperature of 101.8 degrees and an elevated heart rate of 114. Plain x-ray of his right foot revealed extensive soft tissue swelling and soft tissue gas involving the mid forefoot and forefoot. The patient was seen by podiatry and bedside debridement was performed. There was gas noted and foul-smelling drainage. A culture has been sent. This consultation was requested for evaluation and management for infection. The Gram stain from the debridement procedure of the foot reveals heavy mixed vibha with predominant gram-negative coccobacilli. The patient states that he feels extremely weak. He appears somewhat drowsy during my interview. He has a temperature of 101.5 degrees this afternoon and the nurse reports that he was having tremulous movements of his upper extremities. He also has renal insufficiency. The patient tells me that he is not aware of having prior problems with his kidneys. The blood levels indicate that he has stage IV kidney disease. PAST MEDICAL HISTORY: 1. Diabetes mellitus. 2. Hypertension. 3. Depression. 4. Anxiety. 5. Chronic left foot ulcer. 6. Fifth toe amputation in 2008. ALLERGIES: NO KNOWN DRUG ALLERGIES. MEDICATIONS: 1. Piperacillin / Tazobactam. 2. Hydrocortisone. 3. Abilify. 4. Celexa. 5. Pepcid. 6. Insulin. 7. Subcutaneous heparin. SOCIAL HISTORY: No tobacco use. No alcohol use. No illicit drug use. FAMILY HISTORY: Noncontributory. REVIEW OF SYSTEMS: Negative on a ten-point review except for generalized weakness. PHYSICAL EXAMINATION: GENERAL: This is a moderately obese male who is in no acute distress but appears drowsy. VITAL SIGNS: The vital signs include a temperature of 101.5, blood pressure 135/58, respirations 20, heart rate 97. HEAD, EYES, EARS, NOSE, THROAT: The head is atraumatic. Extraocular movements grossly intact. Pupils reactive to light. No icterus. Oropharynx without lesions. NECK: The neck is supple without adenopathy or swelling. LUNGS: Clear to auscultation. HEART: Regular S1-S2 without murmurs, rubs or gallops. ABDOMEN: Bowel sounds present, soft, obese, nontender. No masses palpable. RECTAL: Not performed. EXTREMITIES: The left foot has a wrap dressing overlying the dorsum of the foot with bloody drainage on the dressing. The left foot has 3+ edema. The right foot has no clubbing, cyanosis or edema and the pulses are 2+. The distal tibia on both sides have chronic brown discoloration. The skin however is moist. NEUROLOGIC: Nonfocal. PSYCHIATRIC: The patient is calm and cooperative. LABS: WBCs 12.4, platelet count 89,000, hemoglobin 8.3, 25% bands. Estimated GFR of 20. Blood cultures pending. Wound culture pending. IMPRESSION: 1. Sepsis based on patient with fever and elevated white blood cell count and infection at the left foot in a patient with necrotic gas forming organism and cellulitis. 2. Cellulitis of the left foot. 3. Diabetes mellitus. 4. Acute kidney disease. RECOMMENDATIONS: 1. Continue piperacillin / tazobactam. 2. Avoid Vancomycin in this patient with acute kidney disease. 3. Monitor the wound culture. 4. Monitor blood cultures. 5. Add clindamycin. Thank you for this consultation. I will monitor the patient's cultures and progress and will make further recommendations upon follow up. Sofia Allan MD FD/PIERO /3:23 PM /3:35 PM JOSH
[2016-12-22] MEDS: CLINDAMYCIN INJ 600 MG in SODIUM CHLORIDE 0.9% INJ 100 ML IV SCH (17:47)
[2016-12-22 19:16] LABS: AUTOMATED NEUTROPHIL # 8.2 TH/MM3 (1.8-7.7); BASOPHIL % 0.2 % (0.0-2.0); EOSINOPHIL % 0.1 % (0.0-4.0); HEMATOCRIT 21.4 % (39.0-51.0); LYMPH % 3.9 % (9.0-44.0); LYMPHOCYTE # 0.4 TH/MM3 (1.0-4.8); MEAN CELL VOLUME 95.2 FL (80.0-100.0); MEAN CORPUSCULAR HEMOGLOBIN 31.8 PG (27.0-34.0); MEAN CORPUSCULAR HGB CONC 33.4 % (32.0-36.0); NEUT % 85.8 % (16.0-70.0); PLATELET COUNT 68 TH/MM3 (150-450); RED BLOOD COUNT 2.25 MIL/MM3 (4.50-5.90); RED CELL DISTRIBUTION WIDTH 16.9 % (11.6-17.2); WHITE BLOOD COUNT 9.6 TH/MM3 (4.0-11.0)
[2016-12-22 19:19] LABS: HEMO FLAGS AUTO DIFF
[2016-12-22 19:53] LABS: BANDS 12 % (0-6); METAMYELOCYTES 1 % (0-1); POLYS (SEG NEUTROPHILS) 70 % (16-70); WBC DIFF SAMPLE 100
[2016-12-22 19:54] LABS: PLATELET ESTIMATE SMEAR LOW (NORMAL); PLATELET MORPHOLOGY NORMAL (NORMAL); SCAN/DIFF FINAL DIFF MANUAL
[2016-12-22] MEDS ORDERED: SODIUM CHLOR 0.9% 250 ML INJ 250 ML IV ONE (20:00)
[2016-12-22] MEDS ORDERED: ACETAMINOPHEN 325 MG TAB PO PRN (20:00)
[2016-12-22] MEDS ORDERED: diphenhydrAMINE HCL 25 MG CAP PO PRN (20:00)
[2016-12-22] MEDS ORDERED: FUROSEMIDE 20 MG/2 ML VIAL IV ONE (20:00)
[2016-12-22 20:01] LABS: BICARBONATE 20.9 MEQ/L (21.0-32.0); POTASSIUM 3.9 MEQ/L (3.5-5.1)
[2016-12-22 20:33] LABS: CKMB 1.2 NG/ML (0.5-3.6)
[2016-12-22] MEDS ORDERED: HYDROCORTISONE SOD SUCCINATE 100 MG VIAL IV SCH (21:00)
--- NOTE | 2016-12-22 21:36 | RADRPT ---
EXAM DATE/TIME: 12/22/2016 16:49 [facility] COMPARISON: FOOT LEFT COMPLETE ([id number]), December 21, 2016, 22:25. INDICATIONS : Osteomyelitis. MEDICAL HISTORY : Renal insufficiency, chronic. Diabetes mellitus type 2. SURGICAL HISTORY : Left fifth toe amputation. ENCOUNTER: Initial ACUITY: 1 week PAIN SCORE: 0/10 LOCATION: Left foot TECHNIQUE: Multiplanar, multisequence MRI examination was performed without contrast. FINDINGS: There is evidence of diffuse marrow edema involving the remaining portion of the left 5th metatarsal with probable pathologic fracture involving the base of the left 5th metatarsal and extensive overlyi ng soft-tissue swelling and subcutaneous edema. The findings are suspicious for osteomyelitis involv ing the remaining portion of the 5th metatarsal and overlying diffuse cellulitis. There are question able nondisplaced fractures involving the bases of the left 3rd and 4th metatarsals with some adjacen t marrow edema involving these bones. CONCLUSION: 1. Diffuse marrow edema involving the remaining portion of the left 5th metatarsal with extensive ov erlying soft-tissue swelling. The findings raise the possibility of osteomyelitis of the 5th metatar mariaa and overlying cellulitis. Clinical correlation is recommended. 2. Questionable nondisplaced fractures involving the bases of the left 3rd and 4th metatarsals with some associated marrow edema. Shade Kee MD on December 22, 2016 at 21:15 Board Certified Radiologist. This report was verified electronically.
[2016-12-23] VITALS (10 sets, daily range): BP systolic 80–128; BP diastolic 51–71; PULSE 66–86; RESP 23–36; TEMP 97.1–98.7; O2SAT 92–100
[2016-12-23] MEDS: SODIUM CHLOR 0.9% 1000 ML INJ 1,000 ML IV SCH ×5 (01:33→20:43)
[2016-12-23] MEDS: CLINDAMYCIN INJ 600 MG in SODIUM CHLORIDE 0.9% INJ 100 ML IV SCH ×4 (01:33→23:54)
[2016-12-23] MEDS: HEPARIN SODIUM - SQ 10,000 UNITS/ML VIAL SQ SCH ×3 (02:00→17:43)
[2016-12-23] MEDS: CHLORHEXIDINE GLUCONATE 2 % 1 PACK (2 CLOTHS) TOP SCH (04:35)
[2016-12-23] MEDS: PIPERACIL-TAZO 2.25 GM PREMIX 50 ML IV SCH ×4 (04:35→20:40)
[2016-12-23 05:23] LABS: BLOOD, URINE SMALL (NEG); COMMENT (UR) CULT NOT INDICATED; CULTURE IF INDICATED CULT NOT INDICATED; GLUCOSE,URINE NEG (NEG); KETONE, URINE TRACE mg/dL (NEG); MUCUS URINE FEW /lpf (OCC); NITRITE,URINE NEG (NEG); URINE COLOR YELLOW (YELLW/STRAW)
[2016-12-23 06:24] LABS: HEMATOCRIT 24.9 % (39.0-51.0); MEAN CELL VOLUME 91.4 FL (80.0-100.0); MEAN CORPUSCULAR HEMOGLOBIN 31.3 PG (27.0-34.0); MEAN CORPUSCULAR HGB CONC 34.2 % (32.0-36.0); PLATELET COUNT 62 TH/MM3 (150-450); RED BLOOD COUNT 2.73 MIL/MM3 (4.50-5.90); RED CELL DISTRIBUTION WIDTH 18.5 % (11.6-17.2); WHITE BLOOD COUNT 8.1 TH/MM3 (4.0-11.0)
[2016-12-23 06:36] LABS: HEMO FLAGS AUTO DIFF
[2016-12-23 06:58] LABS: ALKALINE PHOSPHATASE 287 U/L (45-117); ALT (GPT) 19 U/L (12-78); ANION GAP 12 MEQ/L (5-15); AST (GOT) 51 U/L (15-37); BICARBONATE 16.2 MEQ/L (21.0-32.0); BLOOD UREA NITROGEN 63 MG/DL (7-18); CHLORIDE 109 MEQ/L (98-107); GLOMERULAR FILTRATION RATE 30 ML/MIN (>89); POTASSIUM 4.1 MEQ/L (3.5-5.1); SODIUM (NA) 137 MEQ/L (136-145); TOTAL BILIRUBIN ADULT 1.2 MG/DL (0.2-1.0)
[2016-12-23] MEDS: INSULIN ASPART SUPPLEMENTAL SCALE SQ SCH ×4 (06:59→20:42)
[2016-12-23 07:51] LABS: BANDS 18 % (0-6); NEUTROPHIL # MANUAL DIFF 7.4 TH/MM3 (1.8-7.7); POLYS (SEG NEUTROPHILS) 73 % (16-70); WBC DIFF SAMPLE 100
[2016-12-23 07:58] LABS: PLATELET ESTIMATE SMEAR LOW (NORMAL); PLATELET MORPHOLOGY NORMAL (NORMAL)
[2016-12-23 07:59] LABS: DOHLE BODIES PRESENT (NONE SEEN)
[2016-12-23 08:00] LABS: ACANTHOCYTES OCC (NORMAL); SCAN/DIFF FINAL DIFF MANUAL
[2016-12-23] MEDS ORDERED: NEOMYCIN/POLYMYXIN 1 ML G.U. IRRIGANT IR ONE (08:17)
[2016-12-23] MEDS: SODIUM CHLORIDE 0.9% FLUSH 10 ML FLUSH IV FLUSH SCH ×2 (09:00→20:40)
[2016-12-23] MEDS ORDERED: *MEPERIDINE 25 MG INJ VIAL PERIprocedural Use ONLY ONE (09:25)
[2016-12-23] MEDS ORDERED: MIDAZOLAM HCL 2 MG/2 ML VIAL ONE (09:30)
--- NOTE | 2016-12-23 09:39 | HHI.PR ---
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 Post Op Diagnosis: same. Surgeon: Hong Verdugo [employer](s): scrub. Procedure: Left foot ankle incision drainage debridement partial resection of the 5th metatarsal head. Findings: severe necrosis down to periosteum of the midfoot, abscess severe Complications: none Specimen(s) removed: bone 5th met base Estimated blood loss: less then 100 mL Anesthesia: General Drains: Other Fluids: see anethesia Tourniquet time (min at mmHg) esmark left ankle approx 40 min Patient to: Other Patient Condition: Poor Implant/Devices: SEE IMPLANT LOG (if applicable) Date/Time of Procedure: SEE SURGICAL CARE RECORD Hong Verdugo DPM December 23, 2016 09:38
[2016-12-23] MEDS ORDERED: METOPROLOL TARTRATE 5 MG/5 ML VIAL ONE (09:57)
--- NOTE | 2016-12-23 10:02 | HHI.FPPN ---
Subjective Remarks Patient seen in recovery room status post procedure by podiatry. Currently his only complaint is chills. Denies chest pain, shortness of breath. (Freddie Barhaona MD R2) Objective Vitals Vital Signs Date Time Temp Pulse Resp B/P Pulse Ox O2 Delivery O2 Flow Rate FiO2 12/23/16 06:52 97.5 66 23 128/71 100 12/23/16 04:00 97.1 68 23 119/67 98 12/23/16 02:49 97.3 72 26 114/65 98 12/23/16 02:47 97.3 72 26 114/65 98 12/23/16 00:00 97.6 86 36 113/59 98 12/22/16 23:35 99.7 89 33 110/64 97 12/22/16 23:00 89 12/22/16 20:00 100.7 92 38 130/62 98 12/22/16 19:00 93 Room Air 12/22/16 16:00 98.0 93 34 109/61 99 12/22/16 15:00 97 12/22/16 12:00 101.5 108 26 135/58 98 I/O 12/22/16 12/22/16 12/22/16 12/23/16 12/23/16 12/23/16 07:00 15:00 23:00 07:00 15:00 23:00 Intake Total 973 ml 1475 ml 1579 ml 2200 ml Output Total 0 ml 1100 ml 0 ml 1301 ml Balance 973 ml 375 ml 1579 ml 899 ml Intake Oral 480 ml 0 ml IV Total 973 ml 1475 ml 1099 ml 1700 ml Packed Cells 500 ml Output Urine Total 0 ml 1100 ml 0 ml 1300 ml Stool Total 0 ml 0 ml 1 ml Bladder Scan Volume Amount 400 ml # Voids 0 4 (Freddie Barahona MD R2) Result Diagram: 12/23/16 0600 12/23/16 0600 Imaging Last Impressions Foot MRI 12/22/16 0000 Signed Impressions: Service Date/Time: Thursday, December 22, 2016 16:49 - CONCLUSION: 1. Diffuse marrow edema involving the remaining portion of the left 5th metatarsal with extensive overlying soft-tissue swelling. The findings raise the possibility of osteomyelitis of the 5th metatarsal and overlying cellulitis. Clinical correlation is recommended. 2. Questionable nondisplaced fractures involving the bases of the left 3rd and 4th metatarsals with some associated marrow edema. Shade Kee MD Chest X-Ray 12/21/16 2150 Signed Impressions: Service Date/Time: Wednesday, December 21, 2016 22:20 - CONCLUSION: No acute disease. Paramjit Bae MD Foot X-Ray 12/21/16 0000 Signed Impressions: Service Date/Time: Wednesday, December 21, 2016 22:25 - CONCLUSION: Extensive soft tissue swelling and soft tissue gas. Previous fifth toe amputation with recent or ununited fracture at the base of the fifth metatarsal. Paramjit Bae MD Objective Remarks GENERAL: This is a well-nourished, well-developed patient, in no apparent distress. SKIN: Warm left lower extremity, venostasis changes of both lower extremities, worse on left with cellulitic changes and pitting edema HEAD: Atraumatic. Normocephalic. No temporal or scalp tenderness. CARDIOVASCULAR: Tachycardic, regular rhythm. RESPIRATORY: Clear to auscultation. Breath sounds equal bilaterally. No wheezes , rales, or rhonchi. GASTROINTESTINAL: Abdomen soft, non-tender, nondistended. No hepato-splenomegaly , or palpable masses. No guarding. MUSCULOSKELETAL: Status post surgical procedure on the left. Currently wrapped with Christophe bandage per podiatry. Able to move toes on left. Sensation intact although diminished. NEUROLOGICAL: Awake and alert. Cranial nerves II through XII intact. Sensation diminished in left foot compared to the right, some sensation present in distal left lower extremity. Unable to locate which toe is being touched on the left. (Freddie Barahona MD R2) A/P Assessment and Plan 56-year-old male with a past medical history of complicated type 2 diabetes presents septic with diabetic foot wound on the left. Podiatry, infectious disease, critical care consult. Plan as below. Discharge Planning Pending clinical improvement. Case management consulted for discharge needs. (Freddie Barahona MD R2) Attending Attestation THIS CASE WAS DISCUSSED WITH THE RESIDENT PHYSICIANS. I HAVE REVIEWED THE RECORD AND AGREE WITH THE ABOVE NOTE AND PLAN OF CARE WAS DISCUSSED. Patient was seen and examined. SEE ORDERS (Eddie Mitchell MD) Problem List: (1) Diabetic foot ulcer Status: Chronic Plan: Podiatry consulted, Dr. James Infectious disease consult Physical therapy consult 12/23: Status post left foot ankle incision drainage debridement partial resection of the 5th metatarsal head. Intraoperative findings show severe necrosis down to periosteum of the midfoot, abscess severe. Antibiotics per ID: Zosyn IV every 6 hours (started 12/22), clindamycin IV every 8 hours (started 12/22) Wound culture pending Blood Cultures positive as above (2) Sepsis Status: Acute Plan: Infectious disease consult Lactic acid down trending. Vitals currently stable. Continue normal saline at 175 mL's per hour Sources of sepsis is left foot wound. See below for antibiotics and management. Blood cultures show gram-negative gena and gram-positive cocci 4. Wound culture foot pending (3) Thrombocytopenia Status: Acute Plan: Likely related to acute infection. Continue to follow closely. Concern for DIC, however, PT and aPTT are wnl. Will consider obtaining d-dimer and fibrinogen if clinically indicated or labs indicate. Hold heparin for platelets less than 50 (4) Acute renal failure superimposed on stage 3 chronic kidney disease Status: Acute Plan: Likely prerenal in origin Creatinine improving with IV hydration. Continue to monitor (5) Cellulitis Status: Acute Plan: -Cellulitis of left lower leg and left foot -See plan above for sepsis (6) Anemia Status: Acute Plan: Status post 2 units packed red blood cells. Posttransfusion H&H improved from 7.1 to 8.5 Continue to monitor Check Hemoccult (7) Diabetes Status: Acute Plan: -Hemoglobin A1c on 12/11 was 6.9 Sliding scale insulin while in hospital. Patient has had diarrhea on metformin, likely will need to be discontinued as an outpatient and put on glipizide (8) Social issues Status: Acute Plan: Patient lives with his 90-year-old aunt who has dementia and is unable to take care of the patient on discharge. Case management consulted to assist with disposition. (9) Anxiety and depression Status: Acute Plan: -Continue home Abilify 5 mg by mouth daily and Celexa 10 mg by mouth daily -Psychiatry consult as above (10) Hyperlipidemia Status: Acute Plan: -Labs from 12/11 show elevated LDL of 120 -10 year ASCVD risk score is 12% - recommendation is for a high-intensity statin -We'll hold off on starting a statin until patient's clinical status improves -To be discharged on atorvastatin (11) FEN/DVT PPX/GI PPX Status: Acute Plan: Fluids: NS @175 mls/hr IV Electrolytes: Will monitor and replace as needed Nutrition: Diabetic diet after procedure DVT Prophylaxis: Heparin subcutaneous every 8 hours, hold for platelets less than 50 GI Prophylaxis: Famotidine 10 mg IV every 12 hours (Freddie Barahona MD R2) Problem Qualifiers (1) Diabetic foot ulcer: Qualified Code: E11.621 - Diabetic ulcer of toe of left foot associated with type 2 diabetes mellitus, unspecified ulcer stage (2) Sepsis: Qualified Code: A41.9 - Sepsis, due to unspecified organism (3) Anemia: Qualified Code: D64.9 - Anemia, unspecified type (4) Diabetes: Qualified Code: E11.42 - Type 2 diabetes mellitus with diabetic polyneuropathy , without long-term current use of insulin Freddie Barahona MD R2 December 23, 2016 10:02 Eddie Mitchell MD December 23, 2016 21:36 Problem Qualifiers (1) Sepsis: Qualified Code: A41.9 - Sepsis, due to unspecified organism (2) Diabetic foot ulcer: Qualified Code: E11.621 - Diabetic ulcer of toe of left foot associated with type 2 diabetes mellitus, unspecified ulcer stage (3) Anemia: Qualified Code: D64.9 - Anemia, unspecified type (4) Diabetes: Qualified Code: E11.42 - Type 2 diabetes mellitus with diabetic polyneuropathy , without long-term current use of insulin (5) Chronic kidney disease: Qualified Code: N18.9 - Chronic kidney disease, unspecified CKD stage Freddie Barahona MD R2 December 23, 2016 10:02 -Monitor I's and O's -Neurochecks -vehicle monitor technician with telemetry -Continuous vital signs -Activity bed rest Problem Qualifiers (1) Sepsis: Qualified Code: A41.9 - Sepsis, due to unspecified organism (2) Diabetic foot ulcer: Qualified Code: E11.621 - Diabetic ulcer of toe of left foot associated with type 2 diabetes mellitus, unspecified ulcer stage (3) Anemia: Qualified Code: D64.9 - Anemia, unspecified type (4) Diabetes: Qualified Code: E11.42 - Type 2 diabetes mellitus with diabetic polyneuropathy , without long-term current use of insulin (5) Chronic kidney disease: Qualified Code: N18.9 - Chronic kidney disease, unspecified CKD stage Freddie Barahona MD R2 December 23, 2016 10:02
--- NOTE | 2016-12-23 10:33 | RADRPT ---
EXAM DATE/TIME: 12/23/2016 09:40 [facility] COMPARISON: FOOT LEFT COMPLETE ([id number]), December 21, 2016, 22:25. INDICATIONS : Post incision and drainage imaging. MEDICAL HISTORY : Diabetes mellitus type II. SURGICAL HISTORY : Left fifth digit amputation. ENCOUNTER: Initial ACUITY: 1 day PAIN SCORE: Non-responsive. LOCATION: Left foot. FINDINGS: Three view examination of the left foot demonstrates soft tissue swelling. There is irregularity of t he remaining fifth metatarsal. Small bony fragment adjacent to the cuboid. Postsurgical changes invol ving the base of the fifth. CONCLUSION: Soft tissue swelling and post surgical changes. Laureano Grider MD on December 23, 2016 at 10:28 Board Certified Radiologist. This report was verified electronically.
[2016-12-23] MEDS ORDERED: VANCOMYCIN INJ 2,000 MG in SODIUM CHLORID 0.9% 500 ML INJ 500 ML IV ONE (11:00)
[2016-12-23] MEDS ORDERED: NOREPINEPHRINE 4 MG/4 ML AMP ONE (11:14)
[2016-12-23] MEDS ORDERED: METOPROLOL TARTRATE 5 MG/5 ML VIAL IV PUSH ONE (11:15)
[2016-12-23] MEDS ORDERED: SODIUM CHLOR 0.9% 1000 ML INJ 1,000 ML IV ONE ×4 (11:30→16:30)
[2016-12-23] MEDS ORDERED: ePHEDrine/NS 25 MG/5 ML SYR IV ONE (12:00)
[2016-12-23] MEDS ORDERED: PROPOFOL 200 MG/20 ML AMP IV ONE (12:00)
[2016-12-23] MEDS ORDERED: PHENYLEPH/NS 1000 MCG/10 ML SYR IV ONE (12:00)
[2016-12-23] MEDS ORDERED: NOREPINEPHRINE 4 MG/D5W 250 ML IV SCH (12:00)
[2016-12-23] MEDS ORDERED: ONDANSETRON HCL 4 MG/2 ML VIAL IV PUSH ONE (12:00)
[2016-12-23] MEDS: CITALOPRAM HYDROBROMIDE 20 MG TAB PO SCH (12:19)
[2016-12-23] MEDS: FAMOTIDINE 20 MG/2 ML VIAL IV PUSH SCH ×2 (12:19→20:41)
[2016-12-23] MEDS: ARIPiprazole 5 MG TAB PO SCH (12:19)
--- NOTE | 2016-12-23 13:53 | PD.CONS ---
Provisional Diagnosis Admission Date December 22, 2016 at 00:52 [place] I. Dysthymia f 34.1 History of Present Illness Service Psychiatry Consult Requested By Attending MCooper. Reason for Consult Assessment Primary Care Physician Freddie Barahona MD HPI He shouldn't is a 56-year-old obese white male admitted for treatment of diabetic sequelae both lower extremities with surgical interventions. It appears patient also has a history of depressive disorder has been prescribed Celexa and Abilify. Patient seen in his room with RN, patient is postoperative but alert oriented calm and cooperative patient states long history of depression has had some difficulty with mental health follow-up due to insurance issues though recently his primary care physician's is been prescribing his medications. He feels the medications to help focus been stress with this sequelae with his diabetes, financial issues, and the fact that he is now living with his aunt. Though he states his extended family has been quite supportive of him. He is somewhat depressed also both activities had to place his pet dog and temporary care while he is getting his treatment. He states the dog is a large portion of his life. Patient does deny any suicidality homicidality voices or visions. Denies any alcohol or drug use with this. Denies any prior psychiatric hospitalizations. They states she's had chronic depression for a number of years. We did discuss medications. He is somewhat ambivalent about the medications or refills they do help. We did discuss increasing the dose the Celexa from 10 mg to 20 mg to help him over this stressful situation. He is willing to do that. We'll continues Abilify no change. Patient also states his appointment with a new clinician this week on December 27. We also discussed talk therapy he is somewhat vigilant about his privacy and confidentiality feeling the need to gain a rapport with an individual therapist. In any event at the present time we will recommend increasing the Celexa to 20 mg daily continue the Abilify. For patient to follow-up with his new outpatient psychiatrist. Thinks that consult I will sign off the present time Review of Systems Constitutional: DENIES: Diaphoretic episodes, Fatigue, Fever, Weight gain, Weight loss, Chills, Dizziness, Change in appetite, Night Sweats Endocrine: COMPLAINS OF: Heat/cold intolerance, Polydipsia, Polyuria, Polyphagia Eyes: DENIES: Blurred vision, Diplopia, Eye inflammation, Eye pain, Vision loss , Photosensitivity, Double Vision Ears, nose, mouth, throat: DENIES: Tinnitus, Hearing loss, Vertigo, Nasal discharge, Oral lesions, Throat pain, Hoarseness, Ear Pain, Running Nose, Epistaxis, Sinus Pain, Toothache, Odynophagia Respiratory: DENIES: Apneas, Cough, Snoring, Wheezing, Hemoptysis, Sputum production, Shortness of breath Cardiovascular: DENIES: Chest pain, Palpitations, Syncope, Dyspnea on Exertion , PND, Lower Extremity Edema, Orthopnea, Claudication Gastrointestinal: DENIES: Abdominal pain, Black stools, Bloody stools, Constipation, Diarrhea, Nausea, Vomiting, Difficulty Swallowing, Anorexia Genitourinary: DENIES: Sexual dysfunction, Urinary frequency, Urinary incontinence, Urgency, Hematuria, Dysuria, Nocturia, Penile Discharge, Testicular Pain, Testicular Swelling Integumentary: DENIES: Abnormal pigmentation, Nail changes, Pruritus, Rash Hematologic/lymphatic: DENIES: Bruising, Lymphadenopathy Immunologic/allergic: DENIES: Eczema, Urticaria Neurologic: DENIES: Abnormal gait, Headache, Localized weakness, Paresthesias, Seizures, Speech Problems, Tremor, Poor Balance Psychiatric: COMPLAINS OF: Depression (mild, chronic) Past Family Social History Coded Allergies: No Known Allergies (Unverified , 12/06/16) Past Medical History Please see [facility] Active Scripts [employer] Ultra 2 Glucose System 1 Kit Kit #1 KIT .ROUTE DIRECTED Ref 0 Prov:Freddie Barahona MD R2 12/19/16 Citalopram (Celexa)10 Mg Tab10 Mg PO DAILY #30 TAB Ref 0 Prov:Freddie Barahona MD R2 12/06/16 Aripiprazole (Abilify)5 Mg Tab5 Mg PO DAILY #30 TAB Ref 0 Prov:Freddie Barahona MD R2 12/06/16 Lisinopril 5 Mg Tab5 Mg PO DAILY #30 TAB Ref 0 Prov:Freddie Barahona MD R2 12/06/16 Metformin ER 1,000 Mg Taber1,000 Mg PO DAILY #30 TAB Ref 0 With evening meal Prov:Freddie Barahona MD R2 12/06/16 Current Medications Medications (Trade) Dose Ordered Sig/Jeffy Route Start Time Stop Time Status Last Admin (Levophed-Dextrose Drip) 250 ml @ 0 mls/hr TITRATE IV 12/22/16 01:15 12/22/16 01:51 (Abilify) 5 mg DAILY PO 12/22/16 09:00 12/23/16 12:19 Citalopram Hydrobromide 10 mg 10 mg DAILY PO 12/22/16 09:00 12/23/16 12:19 (NS 1000 ml Inj) 1,000 ml @ 175 mls/hr Q5H43M IV 12/22/16 01:45 12/23/16 13:05 (NS Flush) 2 ml UNSCH PRN IV FLUSH 12/22/16 01:45 (NS Flush) 2 ml BID IV FLUSH 12/22/16 09:00 12/23/16 09:00 (Pepcid Inj) 10 mg Q12HR IV PUSH 12/22/16 09:00 12/23/16 12:19 (Heparin Inj) 5,000 units Q8H SQ 12/22/16 02:00 12/23/16 12:19 Miscellaneous Information 1 Q361D XX 12/22/16 01:45 12/22/16 01:45 (Chlorhexidine 2% Cloth) 3 pack Taper DAILY@04 TOP 12/22/16 04:00 12/18/17 03:59 12/23/16 04:35 Chlorhexidine Gluconate 3 pack 3 pack UNSCH PRN TOP 12/22/16 01:45 (Zosyn 2.25 Gm Premix) 50 ml @ 100 mls/hr Q6H IV 12/22/16 15:00 12/23/16 12:18 Acetaminophen 650 mg 650 mg Q6H PRN PO 12/22/16 12:45 12/22/16 13:04 (Cleocin Inj/NS Inj) 104 ml @ 208 mls/hr Q8H IV 12/22/16 17:00 12/23/16 09:00 (D50w (Vial) Inj) 25 ml UNSCH PRN IV PUSH 12/22/16 15:45 Glucagon 1 mg 1 mg UNSCH PRN OTHER 12/22/16 15:45 Norepinephrine Bitartrate 250 ml @ 0 mls/hr TITRATE IV 12/23/16 12:00 (NS 1000 ml Inj) 1,000 ml @ 999 mls/hr BOLUS ONCE IV 12/23/16 12:45 12/23/16 13:45 12/23/16 13:04 Family History Patient vague about past history mental health issues and family Social History Patient lives with aunt who is supportive Patient's Strengths (min. 2) Patient verbally will access healthcare Physical Exam Please see med surge assessments Vital Signs Vital Signs Date Time Temp Pulse Resp B/P Pulse Ox O2 Delivery O2 Flow Rate FiO2 12/23/16 12:00 84 12/23/16 12:00 92 Room Air 12/23/16 12:00 98.0 28 80/51 12/23/16 11:40 2 I/O 12/22/16 12/22/16 12/22/16 07:59 15:59 23:59 Intake Total 973 ml 1475 ml 1579 ml Output Total 0 ml 1100 ml 0 ml Balance 973 ml 375 ml 1579 ml Mental Status Examination Third oriented obese white male weighing calmly in bed cooperative is somewhat guarded with fair eye contact Appearance Clean neatly Speech: Unremarkable, Slow Orientation: x3 Memory: Unremarkable Thought Process: Logical Thought Content: Unremarkable Language Indonesian Fund of Knowledge Fair Hallucination Type: None Attention and Concentration: Good Suicidal Ideation: No (denies) Previous Suicide Attempts: No (denies) Homicidal Ideation: No (denies) Previous Homicide Attempts: No (denies) Insight: Fair Judgment: WNL Affect: Other (decreased range and intensity) Mood: Other (utterly dysphoric) Motor Activity: Abnormal gait-specify (secondary to peripheral diabetic changes ) Assessment & Plan Problem List: (1) Dysthymia ICD Code: F34.1 Assessment & Plan Estimated LOS: days this summer recommend medication changes as above. Patient does have appropriate follow-up with psychiatric services in the community perhaps on 12/27. Patient continue with that. Thanks for consult will sign off at the present time Discharge Planning See above Request HC Surrog/Guard Advoc?: No Paramjit Hathaway MD December 23, 2016 13:53
[2016-12-23] MEDS: VASOPRESSIN INJ 40 UNITS in DEXTROSE 5% IN WATER 100ML INJ 98 ML IV SCH ×2 (15:22)
--- NOTE | 2016-12-23 17:26 | EKG ---
Date Performed: 12/22/2016 Time Performed: 10:03:18 PTAGE: 56 years EKG: Sinus tachycardia with PVC(s). Low QRS voltages in precordial leads When compared to previo us tracing, the premature ventricular Contractions are new. Otherwise no significant serial change wh en allowing for the Technical limitations of the studies. Borderline ECG PREVIOUS TRACING : 12/21/2016 21.58 DOCTOR: Caroline Jameson Interpretating Date/Time 12/23/2016 17:24:45
--- NOTE | 2016-12-23 17:47 | HHI.CCPN ---
Subjective Remarks/Hospital Course 12/22: 56 year old obese male with history of diabetes, recently started on metformin and Abilify, presents for evaluation of weakness and diarrhea for the past 5 days. He has a history of diabetes, depression as well as a chronic wound to the left leg. Patient was recently put back on medications for both depression, diabetes and has an appointment with Dr. Back for wound care for the left chronic wound. This was done at the end of last month when he was seen at [facility]. Per patient he has been compliant with the medications. He is not able to check his blood sugars for the past couple days as he cannot really stand up because of the discomfort and weakness. Patient was evaluated by ID and Dr. Ramirez from podiatry and was diagnosed to have an infected ulcer with cellulitis involving left leg with gas seen on his left lower extremity x-ray from admission. A bedside limited incision and drainage was performed by Dr. Ramirez and cultures were sent. 12/23: Patient received 2 units PRBCs on 12/22 for hemoglobin of 7.1. He was taken to the OR this morning and underwent Left foot ankle incision drainage debridement partial resection of the 5th metatarsal head. Findings: severe necrosis down to periosteum of the midfoot, abscess severe. Postoperatively in PACU patient received 5 mg of Lopressor IV anesthesia for tachycardia following which he developed hypotension and was bolused 2 L normal saline and transferred back to [facility]. Patient remained hypotensive and was initiated on Levophed 2 mics per minute. He was also bolus 2 L of normal saline additionally. When I evaluated the patient he was otherwise awake and alert requiring a by mouth diet and did not appear to be in any acute distress and had just been weaned off Levophed following fluid bolus. Objective Vital Signs Date Time Temp Pulse Resp B/P Pulse Ox O2 Delivery O2 Flow Rate FiO2 12/23/16 16:00 98.1 82 24 89/54 95 12/23/16 12:00 Room Air 12/23/16 11:40 2 Intake and Output 12/22/16 12/22/16 12/23/16 08:00 16:00 00:00 Intake Total 973 ml 1475 ml 1579 ml Output Total 0 ml 1100 ml 0 ml Balance 973 ml 375 ml 1579 ml Result Diagram: 12/23/16 0600 12/23/16 0600 Imaging Last 24 hours Impressions Chest X-Ray 12/21/160 Signed Impressions: Service Date/Time: Wednesday, December 21, 2016 22:20 - CONCLUSION: No acute disease. Paramjit Bae MD Objective Remarks GENERAL: Well-nourished, well-developed patient. SKIN: Warm and dry. HEAD: Normocephalic. EYES: No scleral icterus. No injection or drainage. NECK: Supple, trachea midline. No JVD or lymphadenopathy. CARDIOVASCULAR: Regular rate and rhythm without murmurs, gallops, or rubs. RESPIRATORY: Breath sounds equal bilaterally. No accessory muscle use. GASTROINTESTINAL: Abdomen soft, non-tender, nondistended. MUSCULOSKELETAL: No cyanosis, or edema. BACK: Nontender without obvious deformity. No CVA tenderness. EXTREMITIES: Bilateral edema, dressing over left foot/leg with Christophe wrap in place following surgery 12/23 A/P Assessment and Plan Sepsis - Due to infected ulcer/cellulitis/ osteomyelitis involving left foot s/p Left foot ankle incision drainage, debridement, partial resection of the 5th metatarsal head. - IV fluid resuscitation -On IV Zosyn/clindamycin per ID -Follow up cultures. Blood cultures growing gram-positive cocci and gram- negative rods - Follow-up Intra-Op cultures sent by Dr. Ramirez 12/23 Diabetes - Hold metformin - Possible source of diarrhea - Insulin sliding scale. Hypotension - Hold antihypertensive meds - Aggressive IV fluids resuscitation. Levophed/vasopressin as needed for pressor support Chronic infected left food ulcer with underlying osteomyelitis/abscess -Being followed by Dr. Ramirez from podiatry Anemia Thrombocytopenia - Status post 2 units PRBCs transfused on 12/23 - Thrombocytopenia probably secondary to sepsis. Follow CBC DVT GI prophylaxis - Subcutaneous heparin and Pepcid Critical Care: The total critical care time was 35 minutes. Time to perform other separately billable procedures was not included in the critical care time. Blaine Gavin MD December 23, 2016 17:47
[2016-12-23 21:06] LABS: MEAN CORPUSCULAR HEMOGLOBIN 30.9 PG (27.0-34.0); MEAN CORPUSCULAR HGB CONC 33.2 % (32.0-36.0); PLATELET COUNT 51 TH/MM3 (150-450); RED BLOOD COUNT 2.58 MIL/MM3 (4.50-5.90); RED CELL DISTRIBUTION WIDTH 19.4 % (11.6-17.2); WHITE BLOOD COUNT 8.1 TH/MM3 (4.0-11.0)
[2016-12-23 21:10] LABS: REVIEW FLAG FINAL
[2016-12-23 21:41] LABS: BICARBONATE 16.7 MEQ/L (21.0-32.0); POTASSIUM 4.2 MEQ/L (3.5-5.1)
[2016-12-23 22:01] LABS: CALCIUM-PROTEIN CORRECTED 7.8 MG/DL (8.5-10.1)
[2016-12-24] VITALS (9 sets, daily range): BP systolic 94–117; BP diastolic 50–63; PULSE 76–90; RESP 22–33; TEMP 98.4–99.2; O2SAT 92–96
[2016-12-24] MEDS: HEPARIN SODIUM - SQ 10,000 UNITS/ML VIAL SQ SCH (02:00)
[2016-12-24] MEDS: CHLORHEXIDINE GLUCONATE 2 % 1 PACK (2 CLOTHS) TOP SCH (02:12)
[2016-12-24] MEDS: PIPERACIL-TAZO 2.25 GM PREMIX 50 ML IV SCH ×4 (02:12→20:07)
[2016-12-24 04:08] LABS: AUTOMATED NEUTROPHIL # 5.9 TH/MM3 (1.8-7.7); BASOPHIL % 0.2 % (0.0-2.0); EOSINOPHIL # 0.1 TH/MM3 (0-0.4); EOSINOPHIL % 0.9 % (0.0-4.0); HEMATOCRIT 23.7 % (39.0-51.0); LYMPHOCYTE # 0.6 TH/MM3 (1.0-4.8); MEAN CELL VOLUME 92.9 FL (80.0-100.0); MEAN CORPUSCULAR HEMOGLOBIN 31.3 PG (27.0-34.0); MEAN CORPUSCULAR HGB CONC 33.6 % (32.0-36.0); MONO % 13.3 % (0.0-8.0); NEUT % 77.6 % (16.0-70.0); PLATELET COUNT 51 TH/MM3 (150-450); RED BLOOD COUNT 2.55 MIL/MM3 (4.50-5.90); RED CELL DISTRIBUTION WIDTH 19.3 % (11.6-17.2); WHITE BLOOD COUNT 7.7 TH/MM3 (4.0-11.0)
[2016-12-24 04:10] LABS: HEMO FLAGS AUTO DIFF
[2016-12-24 04:32] LABS: APTT (PATIENT) 31.8 SEC (24.3-30.1); INTERNATIONAL NORMALIZED RATIO 1.1 RATIO; PROTHROMBIN TIME - PATIENT 12.2 SEC (9.8-11.6)
[2016-12-24 04:42] LABS: ALT (GPT) 16 U/L (12-78); ANION GAP 12 MEQ/L (5-15); AST (GOT) 33 U/L (15-37); BICARBONATE 16.3 MEQ/L (21.0-32.0); BLOOD UREA NITROGEN 65 MG/DL (7-18); CHLORIDE 108 MEQ/L (98-107); GLOMERULAR FILTRATION RATE 28 ML/MIN (>89); POTASSIUM 3.8 MEQ/L (3.5-5.1); SODIUM (NA) 136 MEQ/L (136-145)
[2016-12-24 04:43] LABS: ALKALINE PHOSPHATASE 67 U/L (45-117); TOTAL BILIRUBIN ADULT 1.8 MG/DL (0.2-1.0)
[2016-12-24 05:15] LABS: BANDS 6 % (0-6); METAMYELOCYTES 4 % (0-1); NEUTROPHIL # MANUAL DIFF 6.5 TH/MM3 (1.8-7.7); POLYS (SEG NEUTROPHILS) 75 % (16-70); WBC DIFF SAMPLE 100
[2016-12-24 05:17] LABS: HYPERSEGMENTED POLYS 1+ (NORMAL)
[2016-12-24 05:18] LABS: PLATELET ESTIMATE SMEAR LOW (NORMAL); PLATELET MORPHOLOGY NORMAL (NORMAL)
[2016-12-24] MEDS: SODIUM CHLOR 0.9% 1000 ML INJ 1,000 ML IV SCH (06:20)
--- NOTE | 2016-12-24 06:57 | MP ---
cc: TERESA HAY M DATE OF SURGERY 12/23/2016 PREOPERATIVE DIAGNOSIS Left foot and ankle abscess, gas gangrene, osteomyelitis fifth metatarsal of plantar fifth metatarsal ulcer. POSTOPERATIVE DIAGNOSIS Left foot and ankle abscess, gas gangrene, osteomyelitis fifth metatarsal of plantar fifth metatarsal ulcer. PROCEDURES PERFORMED Left foot and ankle incision and drainage, debridement expansile, partial resection of fifth metatarsal head. FINDINGS Severe necrosis down to periosteum, putrid odor of the dorsum of the foot. Abscess, severe. COMPLICATIONS None. SPECIMEN Bone fifth metatarsal. ESTIMATED BLOOD LOSS Approximately 100 mL. ANESTHESIA General. DRAINS 1-inch iodoform packing TOURNIQUET TIME Esmarch wrapped around the ankle for approximately 40 minutes. PLAN OF ACTIVITY Return to floor. Monitor wound. PROGNOSIS Poor regarding limb salvage. JUSTIFICATION FOR PROCEDURE This is a 56-year-old male who has a chronic wound. It appears that he was not being treated by a doctor. He did have a wound care appointment with Dr. Back; however, there was an odor. The patient shows signs of sepsis, had severe diarrhea and he presented to the emergency room. I saw the patient yesterday after gas was noted to be seen radiographically and incision and drainage took place at the bedside to decompress the air space. The patient was then informed of the severity of the infection and the need for a more expansile incision, drainage, debridement and there is a high chance of limb loss to the severity of the infection. PROCEDURE IN DETAIL Under mild sedation the patient was brought into the operating room, placed on the operative table in supine position. Following the induction of general anesthesia the left lower extremity was scrubbed, prepped and draped in the usual aseptic fashion. The foot was elevated, exsanguinated and the previously placed mid-ankle Esmarch was placed serving as hemostatic agent. A linear incision was made over the dorsum of the foot. There was noted to be putrid odor and necrosis down to extensor tendons. A full-thickness incision was then made down to the periosteal level. There was noted to be necrosis all the way to the first metatarsal base, down to the fifth metatarsal base. Sharp and blunt dissection was carried down through the soft tissue structures, deep fascia, talar neck as well as extension just at the level the ankle along the extensor tendons took place. The abscess was explored. There was noted to be gas bubbles deep within the tissue. Rongeur aggressively was performed removing all madrigal, putrid, odor-type substance. The wound was then flushed with copious amounts of pulse lavage saline plantarly. The fifth metatarsal was evaluated. The base appeared to be present. It was then removed and passed off the field for pathological analysis and microbial analysis. I decided to hold on a fifth metatarsal resection for I am not sure the patient's foot will become viable given the extent of the surgery. We will see how the patient does over the next few days before we try a partial ray resection. However, if the infection continues to cause further necrosis, this may be a nonviable extremity that may need [id number] amputation. HAMZAH Bridges/MEGHAN /9:39 AM /6:48 AM
[2016-12-24] MEDS: INSULIN ASPART SUPPLEMENTAL SCALE SQ SCH ×4 (07:00→20:02)
[2016-12-24 07:04] LABS: SCAN/DIFF FINAL DIFF MANUAL
--- NOTE | 2016-12-24 08:08 | HHI.CCPN ---
Subjective Remarks/Hospital Course 12/22: 56 year old obese male with history of diabetes, recently started on metformin and Abilify, presents for evaluation of weakness and diarrhea for the past 5 days. He has a history of diabetes, depression as well as a chronic wound to the left leg. Patient was recently put back on medications for both depression, diabetes and has an appointment with Dr. Back for wound care for the left chronic wound. This was done at the end of last month when he was seen at [facility]. Per patient he has been compliant with the medications. He is not able to check his blood sugars for the past couple days as he cannot really stand up because of the discomfort and weakness. Patient was evaluated by ID and Dr. Ramirez from podiatry and was diagnosed to have an infected ulcer with cellulitis involving left leg with gas seen on his left lower extremity x-ray from admission. A bedside limited incision and drainage was performed by Dr. Ramirez and cultures were sent. 12/23: Patient received 2 units PRBCs on 12/22 for hemoglobin of 7.1. He was taken to the OR this morning and underwent Left foot ankle incision drainage debridement partial resection of the 5th metatarsal head. Findings: severe necrosis down to periosteum of the midfoot, abscess severe. Postoperatively in PACU patient received 5 mg of Lopressor IV anesthesia for tachycardia following which he developed hypotension and was bolused 2 L normal saline and transferred back to [facility]. Patient remained hypotensive and was initiated on Levophed 2 mics per minute. He was also bolus 2 L of normal saline additionally. When I evaluated the patient he was otherwise awake and alert requiring a by mouth diet and did not appear to be in any acute distress and had just been weaned off Levophed following fluid bolus. 12/24: Off levophed since last evening. Resting comfortably in bed. Denies SOB/ abd pain. Tolerating PO diet. Objective Vital Signs Date Time Temp Pulse Resp B/P Pulse Ox O2 Delivery O2 Flow Rate FiO2 12/24/16 07:00 81 12/24/16 07:00 100 Room Air 12/24/16 04:00 99.1 33 108/58 12/23/16 11:40 2 Intake and Output 12/23/16 12/23/16 12/24/16 08:00 16:00 00:00 Intake Total 2200 ml 3968 ml 3297 ml Output Total 1301 ml 900 ml 276 ml Balance 899 ml 3068 ml 3021 ml Result Diagram: 12/24/16 0342 12/24/16 0342 Imaging Last 24 hours Impressions Chest X-Ray 12/21/16 2150 Signed Impressions: Service Date/Time: Wednesday, December 21, 2016 22:20 - CONCLUSION: No acute disease. Paramjit Bae MD Objective Remarks GENERAL: Well-nourished, well-developed patient. SKIN: Warm and dry. HEAD: Normocephalic. EYES: No scleral icterus. No injection or drainage. NECK: Supple, trachea midline. No JVD or lymphadenopathy. CARDIOVASCULAR: Regular rate and rhythm without murmurs, gallops, or rubs. RESPIRATORY: Breath sounds equal bilaterally. No accessory muscle use. GASTROINTESTINAL: Abdomen soft, non-tender, nondistended. MUSCULOSKELETAL: No cyanosis, or edema. BACK: Nontender without obvious deformity. No CVA tenderness. EXTREMITIES: Bilateral edema(more on left), dressing over left foot/leg with Christophe wrap in place following surgery 12/23 A/P Assessment and Plan Sepsis - Due to infected ulcer/cellulitis/ osteomyelitis involving left foot s/p Left foot ankle incision drainage, debridement, partial resection of the 5th metatarsal head. - s/p IV fluid resuscitation -On IV Zosyn/clindamycin per ID -Follow up cultures. Blood cultures growing gram-positive cocci and gram- negative rods - Follow-up Intra-Op cultures sent by Dr. Ramirez 12/23 Diabetes - Hold metformin - Possible source of diarrhea - Insulin sliding scale. Hypotension - Hold antihypertensive meds. Became hypotensive following the dose of Lopressor postoperatively on 12/23 which is now resolved. - S/p Aggressive IV fluids resuscitation. Levophed/vasopressin as needed for pressor support - currently off pressors since yesterday. Chronic infected left food ulcer with underlying osteomyelitis/abscess -Being followed by Dr. Ramirez from podiatry Anemia Thrombocytopenia - Status post 2 units PRBCs transfused on 12/23 - Thrombocytopenia probably secondary to sepsis. Follow CBC. Check HIT screen, hold heparin. DVT GI prophylaxis - Subcutaneous heparin(held due to thrombocytopenia) and Pepcid Blaine Gavin MD December 24, 2016 08:08
--- NOTE | 2016-12-24 08:12 | HHI.FPPN ---
Subjective Remarks Patient states he feels better this morning. His pain is "not bad." He does feel "tangled up" in bed and would like to be able to get out of bed possible. Denies fevers. He feels cold. Denies chest pain, nausea, vomiting, diarrhea. ( Freddie Barahona MD R2) Objective Vitals Vital Signs Date Time Temp Pulse Resp B/P Pulse Ox O2 Delivery O2 Flow Rate FiO2 12/24/16 07:00 81 12/24/16 07:00 100 Room Air 12/24/16 04:00 99.1 81 33 108/58 96 12/24/16 00:00 99.2 79 30 99/57 94 12/23/16 23:00 75 12/23/16 20:00 98.7 78 29 97/54 94 12/23/16 19:00 98 Room Air 12/23/16 16:00 98.1 82 24 89/54 95 12/23/16 15:00 77 12/23/16 12:00 84 12/23/16 12:00 92 Room Air 12/23/16 12:00 98.0 84 28 80/51 92 12/23/16 11:40 86 16 92/55 98 Nasal Cannula 2 12/23/16 11:35 84 16 90/55 98 Nasal Cannula 2 12/23/16 11:30 84 16 91/55 98 Nasal Cannula 2 12/23/16 11:25 84 16 89/50 98 Nasal Cannula 2 12/23/16 11:20 86 16 76/46 98 Nasal Cannula 2 12/23/16 11:15 86 16 75/45 97 Nasal Cannula 2 12/23/16 11:00 84 16 77/47 98 Nasal Cannula 2 12/23/16 10:45 84 16 75/46 98 Nasal Cannula 2 12/23/16 10:30 84 16 92/49 96 Nasal Cannula 2 12/23/16 10:15 90 16 119/58 98 Nasal Cannula 2 12/23/16 10:00 112 16 150/66 95 Nasal Cannula 2 12/23/16 09:45 120 16 152/75 94 Nasal Cannula 2 12/23/16 09:30 120 20 147/82 97 Nasal Cannula 2 12/23/16 09:15 98.0 112 20 129/99 97 Simple Mask 7 I/O 5/14/17 5/1412/23/16 12/24/16 12/24/16 12/24/16 07:00 15:00 23:00 07:00 15:00 23:00 Intake Total 2200 ml 3968 ml 3297 ml 1940 ml Output Total 1301 ml 900 ml 276 ml 425 ml Balance 899 ml 3068 ml 3021 ml 1515 ml Intake Oral 0 ml 830 ml 480 ml 640 ml IV Total 1700 ml 3138 ml 2817 ml 1300 ml Packed Cells 500 ml Output Urine Total 1300 ml 900 ml 275 ml 425 ml Stool Total 1 ml 1 ml 0 ml Bladder Scan Volume Amount 400 ml (Freddie Barahona MD R2) Result Diagram: 12/24/16 03412/24/16 034 Objective Remarks GENERAL: This is a well-nourished, well-developed patient, in no apparent distress. SKIN: Warm left lower extremity, venostasis changes of both lower extremities, worse on left with cellulitic changes and pitting edema to knee HEAD: Atraumatic. Normocephalic. No temporal or scalp tenderness. CARDIOVASCULAR: Tachycardic, regular rhythm. RESPIRATORY: Clear to auscultation. Breath sounds equal bilaterally. No wheezes , rales, or rhonchi. GASTROINTESTINAL: Abdomen soft, non-tender, nondistended. No hepato-splenomegaly , or palpable masses. No guarding. MUSCULOSKELETAL: Status post surgical procedure on the left. Currently wrapped with Christophe bandage per podiatry. Able to move toes on left. Sensation intact although diminished. NEUROLOGICAL: Awake and alert. Cranial nerves II through XII intact. Sensation diminished in left foot compared to the right, some sensation present in distal left lower extremity. Unable to locate which toe is being touched on the left. (Freddie Barahona MD R2) A/P Assessment and Plan 56-year-old male with a past medical history of complicated type 2 diabetes presents septic with diabetic foot wound on the left. Podiatry, infectious disease, critical care consult. Plan as below. Discharge Planning Pending clinical improvement and specialty recommendations. Case management consulted for discharge needs. (Freddie Barahona MD R2) Attending Attestation Patient seen and examined. Case reviewed and discussed with the resident team. Agree with plan of care as discussed with me and documented in the resident note. (Brigid Lenz MD) Problem List: (1) Diabetic foot ulcer Status: Chronic Plan: Podiatry consulted, Dr. Ramirez Infectious disease consult Physical therapy consult -12/23: Status post left foot ankle incision drainage debridement partial resection of the 5th metatarsal head. -Intraoperative findings show severe necrosis down to periosteum of the midfoot , abscess severe. -Podiatry to see how the patient does over the next few days before trying a partial resection. However, if the infection continues to cause further necrosis, his extremity may be nonviable and he may require a below-knee indication. Antibiotics per ID: Zosyn IV every 6 hours (started 12/22), clindamycin IV every 8 hours (started 12/22) Wound culture: Staph aureus, strep, mixed anaerobes, gram-negative gena Blood Cultures positive as listed under sepsis (2) Sepsis Status: Acute Plan: Infectious disease consult Vitals currently stable. Continue normal saline at 175 mL's per hour Sources of sepsis is left foot wound. See antibiotic management under diabetic foot wound Blood cultures show gram-negative gena and gram-positive cocci 4. (3) Thrombocytopenia Status: Acute Plan: Likely related to acute infection. Continue to follow closely. Concern for DIC, however, PT and aPTT are wnl. Will consider obtaining d-dimer and fibrinogen if clinically indicated or labs indicate. Hold heparin for platelets less than 50 (4) Acute renal failure superimposed on stage 3 chronic kidney disease Status: Acute Plan: Likely prerenal in origin IV fluids as below If creatinine continues to worsen, consider nephrology consult Continue to monitor (5) Cellulitis Status: Acute Plan: -Cellulitis of left lower leg and left foot -See plan above for sepsis (6) Anemia Status: Chronic Plan: Status post 2 units packed red blood cells. Hemoglobin stable at 8.0 Continue to monitor; transfuse when less than 7 Check Hemoccult (7) Diabetes Status: Acute Plan: -Hemoglobin A1c on 12/11 was 6.9 Sliding scale insulin while in hospital. Patient has had diarrhea on metformin, likely will need to be discontinued as an outpatient and put on glipizide (8) Social issues Status: Acute Plan: Patient lives with his 90-year-old aunt who has dementia and is unable to take care of the patient on discharge. Case management consulted to assist with disposition. (9) Anxiety and depression Status: Acute Plan: -Continue home Abilify 5 mg by mouth daily and Celexa 10 mg by mouth daily -Psychiatry consult as above (10) Hyperlipidemia Status: Acute Plan: -Labs from 12/11 show elevated LDL of 120 -10 year ASCVD risk score is 12% - recommendation is for a high-intensity statin -We'll hold off on starting a statin until patient's clinical status improves -To be discharged on atorvastatin (11) FEN/DVT PPX/GI PPX Status: Acute Plan: Fluids: Per critical care, Half normal saline with bicarbonate 75 miles per hour Electrolytes: Will monitor and replace as needed Nutrition: Diabetic diet DVT Prophylaxis: Heparin subcutaneous every 8 hours, hold for platelets less than 50 GI Prophylaxis: Famotidine 10 mg IV every 12 hours (Freddie Barahona MD R2) Problem Qualifiers (1) Diabetic foot ulcer: Qualified Code: E11.621 - Diabetic ulcer of toe of left foot associated with type 2 diabetes mellitus, unspecified ulcer stage (2) Sepsis: Qualified Code: A41.9 - Sepsis, due to unspecified organism (3) Acute renal failure superimposed on stage 3 chronic kidney disease: Qualified Code: N17.9 - Acute renal failure superimposed on stage 3 chronic kidney disease, unspecified acute renal failure type (4) Anemia: Qualified Code: D64.9 - Anemia, unspecified type (5) Diabetes: Qualified Code: E11.42 - Type 2 diabetes mellitus with diabetic polyneuropathy , without long-term current use of insulin Freddie Barahona MD R2 December 24, 2016 08:12 Brigid Lenz MD December 27, 2016 12:58
[2016-12-24] MEDS: CLINDAMYCIN INJ 600 MG in SODIUM CHLORIDE 0.9% INJ 100 ML IV SCH ×2 (08:40→17:53)
[2016-12-24] MEDS: CITALOPRAM HYDROBROMIDE 20 MG TAB PO SCH (08:40)
[2016-12-24] MEDS: FAMOTIDINE 20 MG/2 ML VIAL IV PUSH SCH ×2 (08:40→20:06)
[2016-12-24] MEDS: ARIPiprazole 5 MG TAB PO SCH (08:41)
[2016-12-24] MEDS: SODIUM CHLORIDE 0.9% FLUSH 10 ML FLUSH IV FLUSH SCH ×2 (08:48→20:07)
[2016-12-24] MEDS: SODIUM BICARBONATE 8.4% INJ 75 MEQ in SODIUM CHLOR 0.45% 1000 ML INJ 1,000 ML IV SCH (11:14)
--- NOTE | 2016-12-24 12:13 | HHI.IDPN ---
Note Infectious Disease Note Patient up in chair. Denies chills or nausea. Had fluid boluses for decreased BP earlier. Afebrile. Blood culture has staph aureus and gram neg gena. Foot culture has staph aureus. The patient presented with weakness and diarrhea. PAST MEDICAL HISTORY: 1. Diabetes mellitus. 2. Hypertension. 3. Depression. 4. Anxiety. 5. Chronic left foot ulcer. 6. Fifth toe amputation in 2008. ALLERGIES: NO KNOWN DRUG ALLERGIES. ANTIBIOTICS: 1. Piperacillin / Tazobactam. 2. Clindamycin. OBJECTIVE: PHYSICAL EXAMINATION: GENERAL: No acute distress but appears drowsy. HEAD, EYES, EARS, NOSE, THROAT: The head is atraumatic. Extraocular movements grossly intact. Pupils reactive to light. No icterus. Oropharynx without lesions. NECK: No adenopathy or swelling. LUNGS: Clear to auscultation. HEART: Regular S1-S2 without murmurs, rubs or gallops. ABDOMEN: Bowel sounds present, soft, obese, nontender. No masses palpable. EXTREMITIES: The left foot has a wrap dressing overlying the dorsum of the foot Post debridement. The left foot has 3+ edema. The right foot has no clubbing, cyanosis or edema and the pulses are 2+. The distal tibia on both sides have chronic brown discoloration. SKIN: Warm and moist. NEUROLOGIC: Nonfocal. PSYCHIATRIC: The patient is calm and cooperative. IMPRESSION: 1. Sepsis on admission based on patient with fever and elevated white blood cell count and infection at the left foot in a patient with necrotic gas forming organism and cellulitis. 2. Cellulitis of the left foot. 3. Diabetes mellitus. 4. Acute kidney disease. RECOMMENDATIONS: 1. Continue piperacillin / tazobactam. 2. Avoid Vancomycin in this patient with acute kidney disease. 3. Monitor the wound culture. 4. Monitor blood cultures. 5. Continue clindamycin. Manny Romano MD December 24, 2016 12:13
[2016-12-24] MEDS: VASOPRESSIN INJ 40 UNITS in DEXTROSE 5% IN WATER 100ML INJ 98 ML IV SCH ×2 (13:36)
[2016-12-24 15:02] LABS: HEPARIN AB OD 0.638 O.D. (0.000-0.300)
[2016-12-24 15:03] LABS: HEPARIN INDUCED PLATELET AB POSITIVE (NEGATIVE)
[2016-12-25] VITALS (12 sets, daily range): BP systolic 104–133; BP diastolic 55–64; PULSE 76–86; RESP 24–32; TEMP 98.1–100.1; O2SAT 92–99
[2016-12-25] MEDS: CLINDAMYCIN INJ 600 MG in SODIUM CHLORIDE 0.9% INJ 100 ML IV SCH ×3 (00:36→17:01)
[2016-12-25] MEDS: SODIUM BICARBONATE 8.4% INJ 75 MEQ in SODIUM CHLOR 0.45% 1000 ML INJ 1,000 ML IV SCH ×2 (00:36→13:47)
[2016-12-25] MEDS: PIPERACIL-TAZO 2.25 GM PREMIX 50 ML IV SCH ×4 (02:50→20:43)
[2016-12-25] MEDS: CHLORHEXIDINE GLUCONATE 2 % 1 PACK (2 CLOTHS) TOP SCH (03:40)
[2016-12-25 04:20] LABS: ALT (GPT) 15 U/L (12-78); ANION GAP 12 MEQ/L (5-15); AST (GOT) 28 U/L (15-37); BICARBONATE 13.2 MEQ/L (21.0-32.0); BLOOD UREA NITROGEN 61 MG/DL (7-18); CHLORIDE 110 MEQ/L (98-107); GLOMERULAR FILTRATION RATE 30 ML/MIN (>89); SODIUM (NA) 135 MEQ/L (136-145)
[2016-12-25 04:22] LABS: ALKALINE PHOSPHATASE 67 U/L (45-117); TOTAL BILIRUBIN ADULT 2.5 MG/DL (0.2-1.0)
[2016-12-25] MEDS: INSULIN ASPART SUPPLEMENTAL SCALE SQ SCH ×4 (06:10→20:45)
[2016-12-25 07:37] LABS: AUTOMATED NEUTROPHIL # 6.5 TH/MM3 (1.8-7.7); BASOPHIL % 0.3 % (0.0-2.0); EOSINOPHIL % 0.4 % (0.0-4.0); HEMATOCRIT 22.2 % (39.0-51.0); LYMPH % 7.9 % (9.0-44.0); LYMPHOCYTE # 0.7 TH/MM3 (1.0-4.8); MEAN CORPUSCULAR HEMOGLOBIN 31.1 PG (27.0-34.0); MEAN CORPUSCULAR HGB CONC 33.4 % (32.0-36.0); MONO % 14.3 % (0.0-8.0); NEUT % 77.1 % (16.0-70.0); PLATELET COUNT 49 TH/MM3 (150-450); RED BLOOD COUNT 2.39 MIL/MM3 (4.50-5.90); RED CELL DISTRIBUTION WIDTH 18.4 % (11.6-17.2); WHITE BLOOD COUNT 8.4 TH/MM3 (4.0-11.0)
[2016-12-25 07:41] LABS: HEMO FLAGS AUTO DIFF
--- NOTE | 2016-12-25 07:54 | PD.POD ---
Subjective Podiatric Problems LATE ENTRY-PT SEEN 12/24 AT 1900 s/p left foot radical I&D on 12/23/16 by ,secondary to gas gangrene infection. He states that the leg feels "ok" and " a little better then before surgery". He seems lethargic, but denies any n/v/f/h/c/sob. Pain score: 3 Past Med/Surg/Social History Social History Smoking Status: Never Smoker Objective Vital Signs Vital Signs Date Time Temp Pulse Resp B/P Pulse Ox O2 Delivery O2 Flow Rate FiO2 12/25/16 07:00 95 Room Air 12/25/16 06:00 81 12/25/16 04:00 86 12/25/16 04:00 99.4 86 26 108/61 99 12/25/16 02:00 80 12/25/16 00:00 80 12/25/16 00:00 99.1 80 24 104/59 97 12/24/16 23:43 100 Nasal Cannula 1.00 12/24/16 22:00 76 12/24/16 20:00 83 12/24/16 20:00 98.5 83 28 105/63 96 12/24/16 19:00 91 Nasal Cannula 2.00 12/24/16 16:00 98.4 84 22 94/50 92 12/24/16 15:00 87 12/24/16 12:00 98.5 90 26 101/54 96 12/24/16 08:00 98.7 80 24 117/61 96 Coded Allergies: No Known Allergies (Unverified , 12/06/16) Physical Exam Remarks Left foot with dorsal lateral incision approximately 10 in x 2 in x 1in with undermining to the dorsal central foot, ischemia noted to the dorsal foot, underlying wound bed with expose bone tendon and ligaments. Necrotic tissue through out the wound bed. +malodor. +copious amounts of sero sanginous drainage. Left plantar lateral foot wound approximately 4in x 4in x 2.5in probes to bone, mix of necrotic/fibrotic/granular tissue. + malodor. + drainage Assessment & Plan A/P 1) left foot stage 3/4 ulcers with severe infection and tissue ischemia - I spoke with the patient and his family at length regarding the prognosis. The tissue damage is extensive and given his immunocompromised state with diabetes, anemia, and kidney disease it is unlikely that he would be able to make a full recovery from these wounds. At this time I am recommending a BKA, as salvage options will likely take a year or more, if the wound can be successfully healed at all. Other options would include a repeat debridement removing all ischemic skin and necrotic tissue, leaving essentially a de-gloved lateral foot, and the patient would need joint terminal attack controller iv abx, hyper baric oxygen, vascular intervention and continuous wound care. -Ortho consulted for second opinion regarding possible BKA - consulted for wound care evaluation at patients request -Cont iv abx per ID recs -wet to dry dressings daily -Will follow closely Lizzy Bass DPM December 25, 2016 07:54
--- NOTE | 2016-12-25 08:16 | HHI.FPPN ---
Subjective Remarks Patient is concerned he may lose his foot and is struggling with knowing what the best course of action would be. His symptoms seem to be improving however. Denies fever, chills. No chest pain, shortness of breath, nausea, vomiting, diarrhea. (Freddie Barahona MD R2) Objective Vitals Vital Signs Date Time Temp Pulse Resp B/P Pulse Ox O2 Delivery O2 Flow Rate FiO2 12/25/16 07:00 95 Room Air 12/25/16 06:00 81 12/25/16 04:00 86 12/25/16 04:00 99.4 86 26 108/61 99 12/25/16 02:00 80 12/25/16 00:00 80 12/25/16 00:00 99.1 80 24 104/59 97 12/24/16 23:43 100 Nasal Cannula 1.00 12/24/16 22:00 76 12/24/16 20:00 83 12/24/16 20:00 98.5 83 28 105/63 96 12/24/16 19:00 91 Nasal Cannula 2.00 12/24/16 16:00 98.4 84 22 94/50 92 12/24/16 15:00 87 12/24/16 12:00 98.5 90 26 101/54 96 I/O 12/24/16 12/24/16 12/24/16 12/25/16 12/25/16 12/25/16 07:00 15:00 23:00 07:00 15:00 23:00 Intake Total 1940 ml 1452 ml 1154 ml 1627 ml Output Total 425 ml 675 ml 700 ml 700 ml Balance 1515 ml 777 ml 454 ml 927 ml Intake Oral 640 ml 500 ml 480 ml 960 ml IV Total 1300 ml 952 ml 674 ml 667 ml Output Urine Total 425 ml 675 ml 700 ml 700 ml Stool Total 0 ml 0 ml 0 ml 0 ml (Freddie Barahona MD R2) Result Diagram: 12/25/16 0713 12/25/16 0330 Objective Remarks GENERAL: This is a well-nourished, well-developed patient, in no apparent distress. SKIN: Warm left lower extremity, venostasis changes of both lower extremities, worse on left with cellulitic changes and pitting edema to knee HEAD: Atraumatic. Normocephalic. No temporal or scalp tenderness. CARDIOVASCULAR: Tachycardic, regular rhythm. RESPIRATORY: Clear to auscultation. Breath sounds equal bilaterally. No wheezes , rales, or rhonchi. GASTROINTESTINAL: Abdomen soft, non-tender, nondistended. No hepato-splenomegaly , or palpable masses. No guarding. MUSCULOSKELETAL: Status post surgical procedure on the left. Currently wrapped with Christophe bandage per podiatry. Able to move toes on left. Sensation intact although diminished. NEUROLOGICAL: Awake and alert. Cranial nerves II through XII intact. Sensation diminished in left foot compared to the right, some sensation present in distal left lower extremity. Unable to locate which toe is being touched on the left. (Freddie Barahona MD R2) A/P Assessment and Plan 56-year-old male with a past medical history of complicated type 2 diabetes presents septic with diabetic foot wound on the left. Podiatry, infectious disease, critical care consult. Plan as below. Discharge Planning Pending clinical improvement and specialty recommendations. Case management consulted for discharge needs. Physical therapy recommends PT at rehabilitation or home health care. (Freddie Barahona MD R2) Attending Attestation Patient seen and examined. Case reviewed and discussed with the resident team. Agree with plan of care as discussed with me and documented in the resident note. (Brigid Lenz MD) Problem List: (1) Diabetic foot ulcer Status: Chronic Plan: Podiatry consulted Infectious disease consult Physical therapy consult. Orthopedic surgery consult per podiatry on 12/25 for possible left BKA -12/23: Status post left foot ankle incision drainage debridement partial resection of the 5th metatarsal head. -Intraoperative findings show severe necrosis down to periosteum of the midfoot , abscess severe. -Podiatry to see how the patient does over the next few days before trying a partial resection. However, if the infection continues to cause further necrosis, his extremity may be nonviable and he may require a below-knee indication. Antibiotics per ID: Zosyn IV every 6 hours (started 12/22), clindamycin IV every 8 hours (started 12/22) Wound culture: Staph aureus, strep, mixed anaerobes, gram-negative gena Blood Cultures positive as listed under sepsis Bone pathology pending (2) Sepsis Status: Acute Plan: Infectious disease consult Vitals currently stable. Continue half normal saline with bicarbonate at 75 mL's per hour per critical care. Sources of sepsis is left foot wound. See antibiotic management under diabetic foot wound Blood cultures show gram-negative gena and gram-positive cocci 4. (3) HIT (heparin-induced thrombocytopenia) Status: Acute Plan: Hematology consult Serotonin release assay ordered Heparin discontinued Likely will need argatroban vs alternative for anticoagulation (4) Thrombocytopenia Status: Acute Plan: Hematology consult HIT antibody positive; see HIT problem Heparin discontinued (5) Acute renal failure superimposed on stage 3 chronic kidney disease Status: Acute Plan: Likely prerenal in origin Nephrology consult for persistent TAYLOR IV fluids as below (6) Cellulitis Status: Acute Plan: -Cellulitis of left lower leg and left foot -See plan above for sepsis (7) Anemia Status: Chronic Plan: Status post 2 units packed red blood cells on 12/22. Hemoglobin continues to down trend Continue to monitor; transfuse when less than 7 Hemoccult ordered (8) Diabetes Status: Acute Plan: -Hemoglobin A1c on 12/11 was 6.9 Sliding scale insulin while in hospital. Patient has had diarrhea on metformin, likely will need to be discontinued as an outpatient and put on glipizide (9) Social issues Status: Acute Plan: Patient lives with his 90-year-old aunt who has dementia and is unable to take care of the patient on discharge. Case management consulted to assist with disposition. (10) Anxiety and depression Status: Acute Plan: -Continue home Abilify 5 mg by mouth daily and Celexa 10 mg by mouth daily -Psychiatry consulted: Diagnosed with dysthymia; he has appropriate follow-up with psychiatry services in the community (11) FEN/DVT PPX/GI PPX Status: Acute Plan: Fluids: Per critical care, Half normal saline with bicarbonate 75 miles per hour Electrolytes: Will monitor and replace as needed Nutrition: Diabetic diet DVT Prophylaxis: Heparin contraindicated secondary to HIT positive. Hematology consulted to assist. GI Prophylaxis: Famotidine 10 mg IV every 12 hours (Freddie Barahona MD R2) Problem Qualifiers (1) Diabetic foot ulcer: Qualified Code: E11.621 - Diabetic ulcer of toe of left foot associated with type 2 diabetes mellitus, unspecified ulcer stage (2) Sepsis: Qualified Code: A41.9 - Sepsis, due to unspecified organism (3) Acute renal failure superimposed on stage 3 chronic kidney disease: Qualified Code: N17.9 - Acute renal failure superimposed on stage 3 chronic kidney disease, unspecified acute renal failure type (4) Anemia: Qualified Code: D64.9 - Anemia, unspecified type (5) Diabetes: Qualified Code: E11.42 - Type 2 diabetes mellitus with diabetic polyneuropathy , without long-term current use of insulin Freddie Barahona MD R2 December 25, 2016 08:16 Brigid Lenz MD December 27, 2016 12:58
[2016-12-25 08:31] LABS: BANDS 14 % (0-6); PLASMA CELLS 1 % (0-0); PLATELET ESTIMATE SMEAR LOW (NORMAL); PLATELET MORPHOLOGY NORMAL (NORMAL); POLYS (SEG NEUTROPHILS) 69 % (16-70); SCAN/DIFF FINAL DIFF MANUAL; WBC DIFF SAMPLE 100
--- NOTE | 2016-12-25 09:35 | HHI.CCPN ---
Subjective Remarks/Hospital Course 12/22: 56 year old obese male with history of diabetes, recently started on metformin and Abilify, presents for evaluation of weakness and diarrhea for the past 5 days. He has a history of diabetes, depression as well as a chronic wound to the left leg. Patient was recently put back on medications for both depression, diabetes and has an appointment with Dr. Back for wound care for the left chronic wound. This was done at the end of last month when he was seen at [facility]. Per patient he has been compliant with the medications. He is not able to check his blood sugars for the past couple days as he cannot really stand up because of the discomfort and weakness. Patient was evaluated by ID and Dr. Ramirez from podiatry and was diagnosed to have an infected ulcer with cellulitis involving left leg with gas seen on his left lower extremity x-ray from admission. A bedside limited incision and drainage was performed by Dr. Ramirez and cultures were sent. 12/23: Patient received 2 units PRBCs on 12/22 for hemoglobin of 7.1. He was taken to the OR this morning and underwent Left foot ankle incision drainage debridement partial resection of the 5th metatarsal head. Findings: severe necrosis down to periosteum of the midfoot, abscess severe. Postoperatively in PACU patient received 5 mg of Lopressor IV anesthesia for tachycardia following which he developed hypotension and was bolused 2 L normal saline and transferred back to [facility]. Patient remained hypotensive and was initiated on Levophed 2 mics per minute. He was also bolus 2 L of normal saline additionally. When I evaluated the patient he was otherwise awake and alert requiring a by mouth diet and did not appear to be in any acute distress and had just been weaned off Levophed following fluid bolus. 12/24: Off levophed since last evening. Resting comfortably in bed. Denies SOB/ abd pain. Tolerating PO diet. 12/25: Awake, alert, following commands, denies any SOB/ chills. Tolerating PO diet. Objective Vital Signs Date Time Temp Pulse Resp B/P Pulse Ox O2 Delivery O2 Flow Rate FiO2 12/25/16 07:00 95 Room Air 12/25/16 06:00 81 12/25/16 04:00 99.4 26 108/61 12/24/16 23:43 1.00 Intake and Output 12/24/16 12/24/1617 08:00 16:00 00:00 Intake Total 1940 ml 1452 ml 1154 ml Output Total 425 ml 675 ml 700 ml Balance 1515 ml 777 ml 454 ml Result Diagram: 12/25/16 0713 12/25/16 0330 Imaging Last 24 hours Impressions Chest X-Ray 12/21/16 2150 Signed Impressions: Service Date/Time: Wednesday, December 21, 2016 22:20 - CONCLUSION: No acute disease. Paramjit Bae MD Objective Remarks GENERAL: Well-nourished, well-developed patient. SKIN: Warm and dry. HEAD: Normocephalic. EYES: No scleral icterus. No injection or drainage. NECK: Supple, trachea midline. No JVD or lymphadenopathy. CARDIOVASCULAR: Regular rate and rhythm without murmurs, gallops, or rubs. RESPIRATORY: Breath sounds equal bilaterally. No accessory muscle use. GASTROINTESTINAL: Abdomen soft, non-tender, nondistended. MUSCULOSKELETAL: No cyanosis, or edema. BACK: Nontender without obvious deformity. No CVA tenderness. EXTREMITIES: Bilateral edema(more on left), dressing over left foot/leg with Christophe wrap in place following surgery 12/23 A/P Assessment and Plan Sepsis - Due to infected ulcer/cellulitis/ osteomyelitis involving left foot s/p Left foot ankle incision drainage, debridement, partial resection of the 5th metatarsal head. - s/p IV fluid resuscitation -On IV Zosyn/clindamycin per ID -Follow up cultures. Blood cultures growing gram-positive cocci and gram- negative rods. Bone cultures growing staph aureus/ strep - Follow-up Intra-Op cultures/ sensitivity sent by Dr. Ramirez 12/23 Diabetes - Hold metformin - Possible source of diarrhea - Insulin sliding scale. Hypotension - Hold antihypertensive meds. Became hypotensive following the dose of Lopressor postoperatively on 12/23 which is now resolved. - S/p Aggressive IV fluids resuscitation. Levophed/vasopressin as needed for pressor support - currently off pressors. Chronic infected left food ulcer with underlying osteomyelitis/abscess -Being followed by Dr. Ramirez from podiatry TAYLOR - Strict intake output, monitor and replete electro lites, follow BUN/ creatinine. Patient remains on 1/2NS with bicarbonate. Non-anion gap hyperchloremic metabolic acidosis probably secondary to normal saline used during resuscitation. Nephrology consulted by service. Anemia Thrombocytopenia - Status post 2 units PRBCs transfused on 12/23 - Thrombocytopenia probably secondary to sepsis. Follow CBC. HIT screen positive, holding heparin. Ordered DARIEN, hematology consult as patient will need anticoagulation due to HIT. DVT GI prophylaxis - Subcutaneous heparin(held due to thrombocytopenia) and Pepcid D/W Family medicine service. Blaine Gavin MD December 25, 2016 09:35
[2016-12-25] MEDS: ARIPiprazole 5 MG TAB PO SCH (10:03)
[2016-12-25] MEDS: CITALOPRAM HYDROBROMIDE 20 MG TAB PO SCH (10:03)
[2016-12-25] MEDS: FAMOTIDINE 20 MG/2 ML VIAL IV PUSH SCH ×2 (10:07→20:43)
[2016-12-25] MEDS: SODIUM CHLORIDE 0.9% FLUSH 10 ML FLUSH IV FLUSH SCH ×2 (10:07→20:43)
[2016-12-25] MEDS: VASOPRESSIN INJ 40 UNITS in DEXTROSE 5% IN WATER 100ML INJ 98 ML IV SCH ×2 (11:50)
--- NOTE | 2016-12-25 12:49 | PD.CONS ---
[facility] Service Nephrology Consult Requested By Dr. Lenz Reason for Consult Renal insufficiency Primary Care Physician Freddie Barahona MD History of Present Illness Patient is a 56-year-old male diagnosed with the type 2 diabetes since 1989 having trouble with his left leg with chronic wound. He developed that and also an increasing infection in the left leg he was admitted and found to have gas-forming organism incision and drainage and 5 left toe amputation was done he was isolated to have staph aureus and enterococcus Raffinosus, he is being treated to on clindamycin and Zosyn, admission creatinine was 3.17 is declining slowly to 2. 2. Patient denies any previous knowledge of kidney problems Review of Systems Constitutional: COMPLAINS OF: Fatigue Musculoskeletal: COMPLAINS OF: Joint pain, Muscle aches, Stiffness, Joint Swelling Past Family Social History Allergies: Coded Allergies: No Known Allergies (Unverified , 12/06/16) Past Medical History Diabetes Left leg ulcer Previous little toe amputation left foot Obesity Hypertension history of diarrhea Past Surgical History Left toe amputation Reported Medications Reported Meds & Active Scripts Active [employer] 2 Glucose System (Device) 1 Kit Kit 1 Kit .ROUTE DIRECTED Celexa (Citalopram Hydrobromide) 10 Mg Tab 10 Mg PO DAILY Abilify (Aripiprazole) 5 Mg Tab 5 Mg PO DAILY Lisinopril 5 Mg Tab 5 Mg PO DAILY Metformin ER (Metformin HCl) 1,000 Mg Stephanie 1,000 Mg PO DAILY With evening meal Active Ordered Medications Current Medications Medications (Trade) Dose Ordered Sig/Jeffy Route Start Time Stop Time Status Last Admin (Abilify) 5 mg DAILY PO 12/22/16 09:00 12/25/16 10:03 (NS Flush) 2 ml UNSCH PRN IV FLUSH 12/22/16 01:45 (NS Flush) 2 ml BID IV FLUSH 12/22/16 09:00 12/25/16 10:07 (Pepcid Inj) 10 mg Q12HR IV PUSH 12/22/16 09:00 12/25/16 10:07 Miscellaneous Information 1 [id number] XX 12/22/16 01:45 12/22/16 01:45 (Chlorhexidine 2% Cloth) 3 pack Taper DAILY@04 TOP 12/22/16 04:00 12/18/17 03:59 12/24/16 02:12 Chlorhexidine Gluconate 3 pack 3 pack UNSCH PRN TOP 12/22/16 01:45 (Zosyn 2.25 Gm Premix) 50 ml @ 100 mls/hr Q6H IV 12/22/16 15:00 12/25/16 10:02 Acetaminophen 650 mg 650 mg Q6H PRN PO 12/22/16 12:45 12/22/16 13:04 (Cleocin Inj/NS Inj) 104 ml @ 208 mls/hr Q8H IV 12/22/16 17:00 12/25/16 10:02 (D50w (Vial) Inj) 25 ml UNSCH PRN IV PUSH 12/22/16 15:45 Glucagon 1 mg 1 mg UNSCH PRN OTHER 12/22/16 15:45 (Levophed-Dextrose Drip) 250 ml @ 0 mls/hr TITRATE IV 12/23/16 12:00 Citalopram Hydrobromide 20 mg 20 mg DAILY PO 12/24/16 09:00 12/25/16 10:03 Vasopressin 40 units/Dextrose 100 ml @ 4.5 mls/hr [id number] IV 12/23/16 15:22 (Sodium Bicarbonate 8.4% Inj/1/2 NS 1000 ml Inj) 1,075 ml @ 75 mls/hr [id number] IV 12/24/16 08:00 12/25/16 00:36 Family History Diabetes mother has prediabetes and aunt has diabetes Social History Denies smoking or alcohol Physical Exam Vital Signs Vital Signs Date Time Temp Pulse Resp B/P Pulse Ox O2 Delivery O2 Flow Rate FiO2 12/25/16 12:00 100.1 84 31 116/55 92 12/25/16 12:00 84 12/25/16 10:00 85 12/25/16 08:00 86 12/25/16 08:00 98.1 86 32 133/64 94 12/25/16 07:00 95 Room Air 12/25/16 06:00 81 12/25/16 04:00 86 12/25/16 04:00 99.4 86 26 108/61 99 12/25/16 02:00 80 12/25/16 00:00 80 12/25/16 00:00 99.1 80 24 104/59 97 12/24/16 23:43 100 Nasal Cannula 1.00 12/24/16 22:00 76 12/24/16 20:00 83 12/24/16 20:00 98.5 83 28 105/63 96 12/24/16 19:00 91 Nasal Cannula 2.00 12/24/16 16:00 98.4 84 22 94/50 92 12/24/16 15:00 87 Physical Exam GENERAL: Well-nourished, well-developed patient. SKIN: Warm and dry. HEAD: Normocephalic. EYES: No scleral icterus. No injection or drainage. NECK: Supple, trachea midline. No JVD or lymphadenopathy. CARDIOVASCULAR: Regular rate and rhythm without murmurs, gallops, or rubs. RESPIRATORY: Breath sounds equal bilaterally. No accessory muscle use. GASTROINTESTINAL: Abdomen soft, non-tender, nondistended. EXTREMITIES: No cyanosis, 1+ edema. Left leg is wrapped and the dressing NEUROLOGICAL: Awake, alert, and oriented x 3. Non-focal. Laboratory Laboratory Tests Test 12/25/16 12/25/16 03:30 07:13 Sodium Level 135 Potassium Level 4.0 Chloride Level 110 Carbon Dioxide Level 13.2 Anion Gap 12 Blood Urea Nitrogen 61 Creatinine 2.29 Estimat Glomerular Filtration 30 Rate Random Glucose 126 Calcium Level 8.1 Total Bilirubin 2.5 Aspartate Amino Transf 28 (AST/SGOT) Alanine Aminotransferase 15 (ALT/SGPT) Alkaline Phosphatase 67 Total Protein 5.7 Albumin 1.6 White Blood Count 8.4 Red Blood Count 2.39 Hemoglobin 7.4 Hematocrit 22.2 Mean Corpuscular Volume 93.0 Mean Corpuscular Hemoglobin 31.1 Mean Corpuscular Hemoglobin 33.4 Concent Red Cell Distribution Width 18.4 Platelet Count 49 Mean Platelet Volume 10.3 Neutrophils (%) (Auto) 77.1 Lymphocytes (%) (Auto) 7.9 Monocytes (%) (Auto) 14.3 Eosinophils (%) (Auto) 0.4 Basophils (%) (Auto) 0.3 Neutrophils # (Auto) 6.5 Lymphocytes # (Auto) 0.7 Monocytes # (Auto) 1.2 Eosinophils # (Auto) 0.0 Basophils # (Auto) 0.0 CBC Comment AUTO DIFF Differential Total Cells 100 Counted Neutrophils % (Manual) 69 Band Neutrophils % 14 Lymphocytes % 8 Monocytes % 8 Neutrophils # (Manual) 7.0 Differential Comment FINAL DIFF MANUAL Plasma Cells 1 Platelet Estimate LOW Platelet Morphology Comment NORMAL Date/Time Procedure Status Source Growth 12/23/16 08:22 Gram Stain - Final Complete Wound Bone 12/23/16 08:22 Wound Culture - Final Complete Staphylococcus Aureus Enterococcus Raffinosus Mixed Anaerobes 12/23/16 08:22 Fungal Smear - Final Resulted Wound Bone NO FUNGAL ELEMENTS SEEN. 12/23/16 08:22 Fungal Culture Resulted Wound Bone Pending 12/23/16 08:22 Acid Fast Stain - Final Resulted Wound Bone NO ACID FAST BACILLI SEEN 12/23/16 08:22 Mycobacterial Culture Resulted Wound Bone Pending 12/23/16 04:20 Cancelled Sputum Expectorated Sputum 12/22/16 04:58 Aerobic Blood Culture - Preliminary Resulted Blood Peripheral NO GROWTH IN 3 DAYS 12/22/16 04:58 Anaerobic Blood Culture - Preliminary Resulted Blood Peripheral NO GROWTH IN 3 DAYS Result Diagram: 12/25/16 0713 12/25/16 0330 Imaging Last Impressions Foot X-Ray 12/23/16 0000 Signed Impressions: Service Date/Time: Friday, December 23, 2016 09:40 - CONCLUSION: Soft tissue swelling and post surgical changes. Laureano Grider MD Foot MRI 12/22/16 0000 Signed Impressions: Service Date/Time: Thursday, December 22, 2016 16:49 - CONCLUSION: 1. Diffuse marrow edema involving the remaining portion of the left 5th metatarsal with extensive overlying soft-tissue swelling. The findings raise the possibility of osteomyelitis of the 5th metatarsal and overlying cellulitis. Clinical correlation is recommended. 2. Questionable nondisplaced fractures involving the bases of the left 3rd and 4th metatarsals with some associated marrow edema. Shade Kee MD Chest X-Ray 12/21/160 Signed Impressions: Service Date/Time: Wednesday, December 21, 2016 22:20 - CONCLUSION: No acute disease. Paramjit Bae MD Assessment and Plan Problem List: (1) Acute renal failure superimposed on stage 3 chronic kidney disease Plan: Patient has developed the infection and this is being appropriately treated however it has stress his kidneys and creatinine is slowly declining with treatment of the infection and with hydration Avoid nephrotoxins Avoid gadolinium or any dye studies A baseline kidney ultrasound is ordered (2) Diabetic foot ulcer Plan: Patient is being followed by Dr. Ramirez (3) Cellulitis Plan: On clindamycin and Zosyn (4) Thrombocytopenia Plan: History of HIT (5) HIT (heparin-induced thrombocytopenia) Plan: HIT positive Problem Qualifiers (1) Acute renal failure superimposed on stage 3 chronic kidney disease: Qualified Code: N17.9 - Acute renal failure superimposed on stage 3 chronic kidney disease, unspecified acute renal failure type (2) Diabetic foot ulcer: Qualified Code: E11.621 - Diabetic ulcer of toe of left foot associated with type 2 diabetes mellitus, unspecified ulcer stage Shelley Cotto MD December 25, 2016 12:49
--- NOTE | 2016-12-25 14:10 | HHI.IDPN ---
Note Infectious Disease Note Patient without complaints. Denies chills or nausea. Looks fatigued. Afebrile. Blood culture has staph aureus and gram neg gena. Micro having difficulty identifying the gram neg gena. Foot culture has mixed organisms including anaerobes and staph aureus. The patient presented with weakness and diarrhea. PAST MEDICAL HISTORY: 1. Diabetes mellitus. 2. Hypertension. 3. Depression. 4. Anxiety. 5. Chronic left foot ulcer. 6. Fifth toe amputation in 2008. ALLERGIES: NO KNOWN DRUG ALLERGIES. ANTIBIOTICS: 1. Piperacillin / Tazobactam. 2. Clindamycin. OBJECTIVE: Vital Signs Date Time Temp Pulse Resp B/P Pulse Ox O2 Delivery O2 Flow Rate FiO2 12/25/16 12:00 100.1 84 31 116/55 92 12/25/16 12:00 84 12/25/16 10:00 85 12/25/16 08:00 86 12/25/16 08:00 98.1 86 32 133/64 94 12/25/16 07:00 95 Room Air 12/25/16 06:00 81 12/25/16 04:00 86 12/25/16 04:00 99.4 86 26 108/61 99 12/25/16 02:00 80 12/25/16 00:00 80 12/25/16 00:00 99.1 80 24 104/59 97 12/24/16 23:43 100 Nasal Cannula 1.00 12/24/16 22:00 76 12/24/16 20:00 83 12/24/16 20:00 98.5 83 28 105/63 96 12/24/16 19:00 91 Nasal Cannula 2.00 12/24/16 16:00 98.4 84 22 94/50 92 12/24/16 15:00 87 12/24/16 12/24/16 12/25/16 15:00 23:00 07:00 Intake Total 1452 ml 1154 ml 1627 ml Output Total 675 ml 700 ml 700 ml Balance 777 ml 454 ml 927 ml Intake Oral 500 ml 480 ml 960 ml IV Total 952 ml 674 ml 667 ml Output Urine Total 675 ml 700 ml 700 ml Stool Total 0 ml 0 ml 0 ml Laboratory Tests Test 12/23/16 12/24/16 12/25/16 20:50 03:42 07:13 White Blood Count 8.1 TH/MM3 7.7 TH/MM3 8.4 TH/MM3 Red Blood Count 2.58 MIL/MM3 2.55 MIL/MM3 2.39 MIL/MM3 Hemoglobin 8.0 GM/DL 8.0 GM/DL 7.4 GM/DL Hematocrit 24.0 % 23.7 % 22.2 % Mean Corpuscular Volume 93.0 FL 92.9 FL 93.0 FL Mean Corpuscular Hemoglobin 30.9 PG 31.3 PG 31.1 PG Mean Corpuscular Hemoglobin 33.2 % 33.6 % 33.4 % Concent Red Cell Distribution Width 19.4 % 19.3 % 18.4 % Platelet Count 51 TH/MM3 51 TH/MM3 49 TH/MM3 Mean Platelet Volume 10.4 FL 10.9 FL 10.3 FL Neutrophils (%) (Auto) 77.6 % 77.1 % Lymphocytes (%) (Auto) 8.0 % 7.9 % Monocytes (%) (Auto) 13.3 % 14.3 % Eosinophils (%) (Auto) 0.9 % 0.4 % Basophils (%) (Auto) 0.2 % 0.3 % Neutrophils # (Auto) 5.9 TH/MM3 6.5 TH/MM3 Lymphocytes # (Auto) 0.6 TH/MM3 0.7 TH/MM3 Monocytes # (Auto) 1.0 TH/MM3 1.2 TH/MM3 Eosinophils # (Auto) 0.1 TH/MM3 0.0 TH/MM3 Basophils # (Auto) 0.0 TH/MM3 0.0 TH/MM3 CBC Comment AUTO DIFF AUTO DIFF Differential Total Cells 100 100 Counted Neutrophils % (Manual) 75 % 69 % Band Neutrophils % 6 % 14 % Lymphocytes % 12 % 8 % Monocytes % 3 % 8 % Neutrophils # (Manual) 6.5 TH/MM3 7.0 TH/MM3 Metamyelocytes 4 % Differential Comment FINAL DIFF FINAL DIFF MANUAL MANUAL Hypersegmented Polys 1+ Platelet Estimate LOW LOW Platelet Morphology Comment NORMAL NORMAL Red Cell Morphology Comment NORMAL Plasma Cells 1 % Laboratory Tests Test 12/23/16 12/24/16 12/25/16 20:50 03:42 03:30 Sodium Level 135 MEQ/L 136 MEQ/L 135 MEQ/L Potassium Level 4.2 MEQ/L 3.8 MEQ/L 4.0 MEQ/L Chloride Level 108 MEQ/L 108 MEQ/L 110 MEQ/L Carbon Dioxide Level 16.7 MEQ/L 16.3 MEQ/L 13.2 MEQ/L Anion Gap 10 MEQ/L 12 MEQ/L 12 MEQ/L Blood Urea Nitrogen 64 MG/DL 65 MG/DL 61 MG/DL Creatinine 2.48 MG/DL 2.43 MG/DL 2.29 MG/DL Estimat Glomerular Filtration 27 ML/MIN 28 ML/MIN 30 ML/MIN Rate Random Glucose 184 MG/DL 106 MG/DL 126 MG/DL Lactic Acid Level 1.8 mmol/L Calcium Level 7.1 MG/DL 7.7 MG/DL 8.1 MG/DL Protein Corrected Calcium 7.8 MG/DL Total Protein 5.7 GM/DL 5.8 GM/DL 5.7 GM/DL Total Bilirubin 1.8 MG/DL 2.5 MG/DL Aspartate Amino Transf 33 U/L 28 U/L (AST/SGOT) Alanine Aminotransferase 16 U/L 15 U/L (ALT/SGPT) Alkaline Phosphatase 67 U/L 67 U/L Albumin 1.8 GM/DL 1.6 GM/DL Microbiology Date/Time Procedure Status Source Growth 12/23/16 04:20 Cancelled Sputum Expectorated Sputum 12/23/16 08:20 Gram Stain - Final Complete Wound Foot 12/23/16 08:20 Wound Culture - Final Complete Staphylococcus Aureus Enterococcus Raffinosus Mixed Anaerobes 12/23/16 08:20 Acid Fast Stain - Final Resulted Wound Foot NO ACID FAST BACILLI SEEN 12/23/16 08:20 Mycobacterial Culture Resulted Wound Foot Pending 12/23/16 08:20 Fungal Smear - Final Resulted Wound Foot NO FUNGAL ELEMENTS SEEN. 12/23/16 08:20 Fungal Culture Resulted Wound Foot Pending 12/23/16 08:22 Acid Fast Stain - Final Resulted Wound Bone NO ACID FAST BACILLI SEEN 12/23/16 08:22 Mycobacterial Culture Resulted Wound Bone Pending 12/23/16 08:22 Fungal Smear - Final Resulted Wound Bone NO FUNGAL ELEMENTS SEEN. 12/23/16 08:22 Fungal Culture Resulted Wound Bone Pending 12/23/16 08:22 Gram Stain - Final Complete Wound Bone 12/23/16 08:22 Wound Culture - Final Complete Staphylococcus Aureus Enterococcus Raffinosus Mixed Anaerobes Last Impressions Foot X-Ray 12/23/16 0000 Signed Impressions: Service Date/Time: Friday, December 23, 2016 09:40 - CONCLUSION: Soft tissue swelling and post surgical changes. Laureano Grider MD Foot MRI 12/22/16 0000 Signed Impressions: Service Date/Time: Thursday, December 22, 2016 16:49 - CONCLUSION: 1. Diffuse marrow edema involving the remaining portion of the left 5th metatarsal with extensive overlying soft-tissue swelling. The findings raise the possibility of osteomyelitis of the 5th metatarsal and overlying cellulitis. Clinical correlation is recommended. 2. Questionable nondisplaced fractures involving the bases of the left 3rd and 4th metatarsals with some associated marrow edema. Shade Kee MD Chest X-Ray 12/21/160 Signed Impressions: Service Date/Time: Wednesday, December 21, 2016 22:20 - CONCLUSION: No acute disease. Paramjit Bae MD PHYSICAL EXAMINATION: GENERAL: No acute distress. HEAD, EYES, EARS, NOSE, THROAT: No icterus. Oropharynx without lesions. NECK: No adenopathy or swelling. LUNGS: Clear to auscultation. HEART: Regular S1-S2 without murmurs, rubs or gallops. ABDOMEN: Bowel sounds present, soft, obese, nontender. No masses palpable. EXTREMITIES: The left foot has a wrap dressing overlying the dorsum of the foot Post debridement. The left foot has 3+ edema. The right foot has no clubbing, cyanosis or edema and the pulses are 2+. The distal tibia on both sides have chronic brown discoloration. SKIN: Warm and moist. NEUROLOGIC: Nonfocal. PSYCHIATRIC: The patient is calm and cooperative. IMPRESSION: 1. Sepsis on admission based on patient with fever and elevated white blood cell count and infection at the left foot in a patient with necrotic gas forming organism and cellulitis. Staph and gram neg gena. 2. Cellulitis of the left foot. Marrow edema at the 5th metatarsal as well as the 3rd and 4th metatarsal suggesting osteo. 3. Diabetes mellitus. 4. Acute kidney disease. RECOMMENDATIONS: 1. Continue piperacillin / tazobactam. 2. Continue clindamycin. Avoid Vancomycin in this patient with acute kidney disease. 3. Monitor the wound culture. 4. Monitor blood cultures. 5. Repeat blood cultures. 6. Monitor clinical status. Manny Romano MD December 25, 2016 14:10
--- NOTE | 2016-12-25 16:21 | PD.WOU.CON ---
Patient Intake Chief Complaint Evaluation of open wound left foot with a mixed anaerobes infection and osteomyelitis Consult Requested by Dr. Kali DPM Reason for Consult Evaluate the patient for possible limb salvage Primary Care Physician Freddie Barahona MD History of Present Illness Patient is a 56-year-old noncompliant diabetic male with an open wound on the left foot of a multiple month duration. Patient has peripheral neuropathy. He previously had an amputation of the fifth toe of the left foot. MRI on admission showed osteomyelitis of the fifth metatarsal and fractures of the base of the fifth metatarsal, third and fourth metatarsals of the left foot. Patient is growing multiple bacteria from the wound including staph, enterococcus and mixed anaerobes. He's been running a low-grade fever during his admission. I was asked to see the patient to see if there is any limb salvage procedures or to recommend a below-knee amputation. Coded Allergies: No Known Allergies (Unverified , 12/06/16) Preferred Language to Discuss: Frisian Barriers to Learning: None Teaching Method: Discussion Vital Signs Date Time Temp Pulse Resp B/P Pulse Ox O2 Delivery O2 Flow Rate FiO2 12/25/16 14:00 83 12/25/16 12:00 100.1 84 31 116/55 92 12/25/16 12:00 84 12/25/16 10:00 85 12/25/16 08:00 86 12/25/16 08:00 98.1 86 32 133/64 94 12/25/16 07:00 95 Room Air 12/25/16 06:00 81 12/25/16 04:00 86 12/25/16 04:00 99.4 86 26 108/61 99 12/25/16 02:00 80 12/25/16 00:00 80 12/25/16 00:00 99.1 80 24 104/59 97 12/24/16 23:43 100 Nasal Cannula 1.00 12/24/16 22:00 76 12/24/16 20:00 83 12/24/16 20:00 98.5 83 28 105/63 96 12/24/16 19:00 91 Nasal Cannula 2.00 Pain scale used: 0-10 numeric scale Pain score: 1 Medications Current Medications Sodium Chloride (NS 1000 ml Inj) 1,000 ml @ 1,000 mls/hr Q1H IV Last administered on 12/21/16t 22:36; Start 12/21/16 at 21:50; Stop 12/21/16 at 22:49 ; Status DC Acetaminophen 650 mg 650 mg ONCE ONCE PO Last administered on 12/21/16 22:37 ; Start 12/21/16 at 22:00; Stop 12/21/16 at 22:01; Status DC Sodium Chloride 1,000 ml @ 1,000 mls/hr Q1H IV Last administered on 12/21/16 23:44; Start 12/21/16 at 22:28; Stop 12/21/16 at 23:27; Status DC Vancomycin HCl 1000 mg/Sodium Chloride 250 ml @ 250 mls/hr ONCE ONCE IV Last administered on 12/22/16 02:31; Start 12/22/16 at 00:30; Stop 12/22/16 at 01:29 ; Status DC Piperacillin Sod/ Tazobactam Sod 100 ml @ 200 mls/hr ONCE ONCE IV Last administered on 12/22/16 00:41; Start 12/22/16 at 00:30; Stop 12/22/16 at 00:59 ; Status DC Sodium Chloride 1,000 ml @ 999 mls/hr BOLUS ONCE IV Last administered on 12/22 00:42; Start 12/22/16 at 00:45; Stop 12/22/16 at 01:45; Status DC Norepinephrine Bitartrate (Levophed-Dextrose Drip) 250 ml @ 0 mls/hr TITRATE IV Last administered on 12/22/16 01:51; Start 12/22/16 at 01:15; Stop 12/24/16 at 07:11; Status DC Aripiprazole (Abilify) 5 mg DAILY PO Last administered on 12/25/16 10:03; Start 12/22/16 at 09:00 Citalopram Hydrobromide 10 mg 10 mg DAILY PO Last administered on 12/23/16 12: 19; Start 12/22/16 at 09:00; Stop 12/23/16 at 13:44; Status DC Sodium Chloride (NS 1000 ml Inj) 1,000 ml @ 100 mls/hr Q10H IV Last administered on 12/24/16 06:20; Start 12/22/16 at 01:45; Stop 12/24/16 at 07:55 ; Status DC Sodium Chloride (NS Flush) 2 ml UNSCH PRN IV FLUSH FLUSH AFTER USING IV ACCESS ; Start 12/22/16 at 01:45 Sodium Chloride (NS Flush) 2 ml BID IV FLUSH Last administered on 12/25/16 10: 07; Start 12/22/16 at 09:00 Hydrocortisone Sodium Succinate (SoluCORTEF INJ) 50 mg Q6H IV Last administered on 12/22/16 09:17; Start 12/22/16 at 02:00; Stop 12/22/16 at 14:15 ; Status DC Famotidine (Pepcid Inj) 10 mg Q12HR IV PUSH Last administered on 12/25/16 10: 07; Start 12/22/16 at 09:00 Albuterol/ Ipratropium (Duoneb Neb) 1 ampule Q2HR NEB PRN INH WHEEZING; Start 12/22/16 at 01:45 Heparin Sodium (Porcine) 5000 units 5,000 units Q8H SQ Last administered on 17:43; Start 12/22/16 at 02:00; Stop 12/24/16 at 18:59; Status DC Vancomycin HCl 1000 mg/Sodium Chloride 250 ml @ 250 mls/hr Q12H IV ; Start at 01:45; Status UNV Pharmacy Profile Note 0 ml @ 0 mls/hr UNSCH OTHER ; Start 12/22/16 at 01:45; Stop 12/23/16 at 10:33; Status DC Piperacillin Sod/ Tazobactam Sod 100 ml @ 200 mls/hr Q6H IV Last administered on 12/22/16 09:15; Start 12/22/16 at 08:00; Stop 12/22/16 at 09:26; Status DC Sodium Chloride 1,000 ml @ 1,000 mls/hr Q1H ONCE IV ; Start 12/22/16 at 01:45; Stop 12/22/16 at 02:44; Status DC Sodium Chloride (NS 1000 ml Inj) 1,000 ml @ 1,000 mls/hr Q1H ONCE IV ; Start at 01:45; Stop 12/22/16 at 02:44; Status DC Miscellaneous Information 1 [id number] Last administered on 12/22/16 01:45; Start 12/22/16 at 01:45 Chlorhexidine Gluconate (Chlorhexidine 2% Cloth) 3 pack Taper DAILY@04 TOP Last administered on 12/24/16 02:12; Start 12/22/16 at 04:00; Stop 12/18/17 at 03:59 Chlorhexidine Gluconate 3 pack 3 pack UNSCH PRN TOP HYGIENIC CARE; Start at 01:45 Vancomycin HCl 1500 mg/Sodium Chloride 515 ml @ 250 mls/hr DAILY@03 IV ; Start 12/22/16 at 03:00; Stop 12/22/16 at 03:29; Status DC Vancomycin HCl/ Sodium Chloride (Vancomycin Inj/ NS Inj) 105 ml @ 250 mls/hr DAILY@0330 IV Last administered on 12/22/16 05:00; Start 12/22/16 at 03:30; Stop 12/22/16 at 07:30; Status DC Dextrose (D50w (Vial) Inj) 25 ml UNSCH PRN IV PUSH HYPOGLYCEMIA-SEE COMMENTS; Start 12/22/16 at 05:30; Stop 12/22/16 at 15:40; Status DC Glucagon (Glucagon Inj) 1 mg UNSCH PRN OTHER HYPOGLYCEMIA-SEE COMMENTS; Start 12/22/16 at 05:30; Stop 12/22/16 at 15:40; Status DC Insulin Aspart 1 1 ACHS SLIDING SCALE SQ Last administered on 12/22/16 11:09 ; Start 12/22/16 at 07:00; Stop 12/22/16 at 15:40; Status DC Piperacillin Sod/ Tazobactam Sod (Zosyn 2.25 Gm Premix) 50 ml @ 100 mls/hr Q6H IV Last administered on 12/25/16 14:09; Start 12/22/16 at 15:00 Acetaminophen (Tylenol) 650 mg Q6H PRN PO FEVER Last administered on 12/22/16 13:04; Start 12/22/16 at 12:45 Hydrocortisone Sodium Succinate 50 mg 50 mg Q12HR IV Last administered on 20:45; Start 12/22/16 at 21:00; Stop 12/23/16 at 08:00; Status DC Clindamycin Phosphate/Sodium Chloride (Cleocin Inj/NS Inj) 104 ml @ 208 mls/hr Q8H IV Last administered on 12/25/16 10:02; Start 12/22/16 at 17:00 Dextrose (D50w (Vial) Inj) 25 ml UNSCH PRN IV PUSH HYPOGLYCEMIA-SEE COMMENTS; Start 12/22/16 at 15:45 Glucagon (Glucagon Inj) 1 mg UNSCH PRN OTHER HYPOGLYCEMIA-SEE COMMENTS; Start 12/22/16 at 15:45 Insulin Aspart 1 1 ACHS SLIDING SCALE SQ Last administered on 12/25/16 06:10 ; Start 12/22/16 at 16:00 Sodium Chloride (NS 250 ml Inj) 250 ml @ 15 mls/hr ONCE ONCE IV Last administered on 12/22/16 23:56; Start 12/22/16 at 20:00; Stop 12/23/16 at 12:39 ; Status DC Acetaminophen (Tylenol) 650 mg Q4H PRN PO SEE LABEL COMMENTS Last administered on 12/22/16 23:07; Start 12/22/16 at 20:00; Stop 12/23/16 at 00:01; Status DC Diphenhydramine HCl (Benadryl) 25 mg Q4H PRN PO SEE LABEL COMMENTS Last administered on 12/22/16 23:07; Start 12/22/16 at 20:00; Stop 12/23/16 at 00:01 ; Status DC Furosemide (Lasix Inj) 20 mg ONCE ONCE IV Last administered on 12/23/16 02:39 ; Start 12/22/16 at 20:00; Stop 12/22/16 at 20:01; Status DC Neomycin/Polymyxin (Neosporin G.u. Irr) 6 ml STK-MED ONCE IR Last administered on 12/23/16 08:17; Start 12/23/16 at 08:17; Stop 12/23/16 at 08:57; Status DC Meperidine HCl (*DEMEROL INJ PERIprocedural ONLY) 25 mg STK-MED ONCE .ROUTE Last administered on 12/23/16 09:25; Start 12/23/16 at 09:25; Stop 12/23/16 at 09:26; Status DC Midazolam HCl (Versed Inj) 2 mg STK-MED ONCE .ROUTE ; Start 12/23/16 at 09:30; Stop 12/23/16 at 09:31; Status DC Fentanyl Citrate (fentaNYL INJ) 100 mcg STK-MED ONCE .ROUTE ; Start 12/23/16 at 09:30; Stop 12/23/16 at 09:31; Status DC Metoprolol Tartrate 5 mg 5 mg STK-MED ONCE .ROUTE Last administered on 09:57; Start 12/23/16 at 09:57; Stop 12/23/16 at 09:58; Status DC Vancomycin HCl/ Sodium Chloride (Vancomycin Inj/ NS 500 ml Inj) 520 ml @ 250 mls/hr ONCE ONCE IV ; Start 12/23/16 at 11:00; Stop 12/23/16 at 11:00; Status DC Metoprolol Tartrate 5 mg 5 mg NOW ONCE IV PUSH ; Start 12/23/16 at 11:15; Stop 12/23/16 at 11:16; Status DC Sodium Chloride (NS 1000 ml Inj) 1,000 ml @ 0 mls/hr BOLUS ONCE IV ; Start at 11:30; Stop 12/23/16 at 11:31; Status DC Norepinephrine Bitartrate 4 mg 4 mg STK-MED ONCE .ROUTE Last administered on 11:15; Start 12/23/16 at 11:14; Stop 12/23/16 at 11:15; Status DC Norepinephrine Bitartrate 250 ml @ 0 mls/hr TITRATE IV ; Start 12/23/16 at 12:00 Sodium Chloride (NS 1000 ml Inj) 1,000 ml @ 999 mls/hr BOLUS ONCE IV Last administered on 12/23/16 13:04; Start 12/23/16 at 12:45; Stop 12/23/16 at 13:46 ; Status DC Citalopram Hydrobromide 20 mg 20 mg DAILY PO Last administered on 12/25/16 10: 03; Start 12/24/16 at 09:00 Sodium Chloride 1,000 ml @ 1,000 mls/hr Q1H ONCE IV Last administered on 16:50; Start 12/23/16 at 15:30; Stop 12/23/16 at 16:29; Status DC Sodium Chloride 1,000 ml @ 1,000 mls/hr Q1H ONCE IV Last administered on 16:50; Start 12/23/16 at 16:30; Stop 12/23/16 at 17:29; Status DC Vasopressin 40 units/Dextrose 100 ml @ 4.5 mls/hr [id number] IV ; Start 12/23/16 at 15:22 Sodium Bicarbonate/ Sodium Chloride (Sodium Bicarbonate 8.4% Inj/1/2 NS 1000 ml Inj) 1,075 ml @ 75 mls/hr [id number] IV Last administered on 12/25/16t 13:47; Start 12/24/16 at 08:00 Past, Family & Social History Past Medical History PFS Reviewed: Yes Endocrine: REPORTS HX OF: Diabetes mellitus Cardiovascular: REPORTS HX OF: Hypertension, Other CV history (chronic venous insufficiency) Genitourinary: REPORTS HX OF: Kidney disease Neurologic: REPORTS HX OF: Peripheral neuropathy Psychiatric: REPORTS HX OF: Anxiety, Depression Past Surgical History Musculoskeletal: REPORTS HX OF: Other musculoskeletal srg (fifth toe left foot amputation) Substance Use Substance use: Denies use Review of Systems Constitutional: COMPLAINS OF: Fever, Fatigue, DENIES: Good general health Cardiovascular: COMPLAINS OF: Hx hypertension, Swelling legs / ankles, Varicose veins Genitourinary: DENIES: Renal disease Musculoskeletal: COMPLAINS OF: Deformaties Integumentary: COMPLAINS OF: Slow to heal after cuts Neurological: COMPLAINS OF: Numbness/tingling, Changes in sensation, Difficulty with balance Psychiatric: COMPLAINS OF: Depression/anxiety Wound Assessment Vascular Assessment R Dorsails Pedis: Doppler L Dorsails Pedis: Doppler R Posterior Tibial: Doppler L Posterior Tibial: Doppler Temperature of Left Extremity: Cool Color of Left Extremity: Pale Sensation of Left Extremity: Diminished Temperature of Right Extremity: Cool Color of Right Extremity: Pale Sensation of Right Extremity: Diminished Extremities Evaluation: Edema Right, Edema Left Wound Information - Wound One Wound Location: open surgical incision lateral foot and ankle left Wound Type: Post-op Classification: Bone/Tendon Present Photo Taken: No Exudate: Moderate Exudate Type: Green, Yellow Debridement: No Fibrin Amount: None Granulation Tissue Color: None Granulation Tissue Texture: N/A Exposed: Bone, Muscle Eschar: No Odor: Yes Periwound Appearance: FINDINGS: Induration Dressings: Sponge 4.4 Non Sterile Lab and Radiology Results Laboratory Laboratory Tests Test 12/23/16 12/24/16 12/25/16 20:50 03:42 07:13 White Blood Count 8.1 TH/MM3 7.7 TH/MM3 8.4 TH/MM3 Red Blood Count 2.58 MIL/MM3 2.55 MIL/MM3 2.39 MIL/MM3 Hemoglobin 8.0 GM/DL 8.0 GM/DL 7.4 GM/DL Hematocrit 24.0 % 23.7 % 22.2 % Mean Corpuscular Volume 93.0 FL 92.9 FL 93.0 FL Mean Corpuscular Hemoglobin 30.9 PG 31.3 PG 31.1 PG Mean Corpuscular Hemoglobin 33.2 % 33.6 % 33.4 % Concent Red Cell Distribution Width 19.4 % 19.3 % 18.4 % Platelet Count 51 TH/MM3 51 TH/MM3 49 TH/MM3 Mean Platelet Volume 10.4 FL 10.9 FL 10.3 FL Neutrophils (%) (Auto) 77.6 % 77.1 % Lymphocytes (%) (Auto) 8.0 % 7.9 % Monocytes (%) (Auto) 13.3 % 14.3 % Eosinophils (%) (Auto) 0.9 % 0.4 % Basophils (%) (Auto) 0.2 % 0.3 % Neutrophils # (Auto) 5.9 TH/MM3 6.5 TH/MM3 Lymphocytes # (Auto) 0.6 TH/MM3 0.7 TH/MM3 Monocytes # (Auto) 1.0 TH/MM3 1.2 TH/MM3 Eosinophils # (Auto) 0.1 TH/MM3 0.0 TH/MM3 Basophils # (Auto) 0.0 TH/MM3 0.0 TH/MM3 CBC Comment AUTO DIFF AUTO DIFF Differential Total Cells 100 100 Counted Neutrophils % (Manual) 75 % 69 % Band Neutrophils % 6 % 14 % Lymphocytes % 12 % 8 % Monocytes % 3 % 8 % Neutrophils # (Manual) 6.5 TH/MM3 7.0 TH/MM3 Metamyelocytes 4 % Differential Comment FINAL DIFF FINAL DIFF MANUAL MANUAL Hypersegmented Polys 1+ Platelet Estimate LOW LOW Platelet Morphology Comment NORMAL NORMAL Red Cell Morphology Comment NORMAL Plasma Cells 1 % Laboratory Tests Test 12/23/16 12/24/16 12/25/16 20:50 03:42 03:30 Sodium Level 135 MEQ/L 136 MEQ/L 135 MEQ/L Potassium Level 4.2 MEQ/L 3.8 MEQ/L 4.0 MEQ/L Chloride Level 108 MEQ/L 108 MEQ/L 110 MEQ/L Carbon Dioxide Level 16.7 MEQ/L 16.3 MEQ/L 13.2 MEQ/L Anion Gap 10 MEQ/L 12 MEQ/L 12 MEQ/L Blood Urea Nitrogen 64 MG/DL 65 MG/DL 61 MG/DL Creatinine 2.48 MG/DL 2.43 MG/DL 2.29 MG/DL Estimat Glomerular Filtration 27 ML/MIN 28 ML/MIN 30 ML/MIN Rate Random Glucose 184 MG/DL 106 MG/DL 126 MG/DL Lactic Acid Level 1.8 mmol/L Calcium Level 7.1 MG/DL 7.7 MG/DL 8.1 MG/DL Protein Corrected Calcium 7.8 MG/DL Total Protein 5.7 GM/DL 5.8 GM/DL 5.7 GM/DL Total Bilirubin 1.8 MG/DL 2.5 MG/DL Aspartate Amino Transf 33 U/L 28 U/L (AST/SGOT) Alanine Aminotransferase 16 U/L 15 U/L (ALT/SGPT) Alkaline Phosphatase 67 U/L 67 U/L Albumin 1.8 GM/DL 1.6 GM/DL Microbiology Date/Time Procedure Status Source Growth 12/23/16 04:20 Cancelled Sputum Expectorated Sputum 12/23/16 08:20 Gram Stain - Final Complete Wound Foot 12/23/16 08:20 Wound Culture - Final Complete Staphylococcus Aureus Enterococcus Raffinosus Mixed Anaerobes 12/23/16 08:20 Acid Fast Stain - Final Resulted Wound Foot NO ACID FAST BACILLI SEEN 12/23/16 08:20 Mycobacterial Culture Resulted Wound Foot Pending 12/23/16 08:20 Fungal Smear - Final Resulted Wound Foot NO FUNGAL ELEMENTS SEEN. 12/23/16 08:20 Fungal Culture Resulted Wound Foot Pending 12/23/16 08:22 Acid Fast Stain - Final Resulted Wound Bone NO ACID FAST BACILLI SEEN 12/23/16 08:22 Mycobacterial Culture Resulted Wound Bone Pending 12/23/16 08:22 Fungal Smear - Final Resulted Wound Bone NO FUNGAL ELEMENTS SEEN. 12/23/16 08:22 Fungal Culture Resulted Wound Bone Pending 12/23/16 08:22 Gram Stain - Final Complete Wound Bone 12/23/16 08:22 Wound Culture - Final Complete Staphylococcus Aureus Enterococcus Raffinosus Mixed Anaerobes Radiology Last Impressions Foot X-Ray 12/23/16 0000 Signed Impressions: Service Date/Time: Friday, December 23, 2016 09:40 - CONCLUSION: Soft tissue swelling and post surgical changes. Laureano Grider MD Foot MRI 12/22/16 0000 Signed Impressions: Service Date/Time: Thursday, December 22, 2016 16:49 - CONCLUSION: 1. Diffuse marrow edema involving the remaining portion of the left 5th metatarsal with extensive overlying soft-tissue swelling. The findings raise the possibility of osteomyelitis of the 5th metatarsal and overlying cellulitis. Clinical correlation is recommended. 2. Questionable nondisplaced fractures involving the bases of the left 3rd and 4th metatarsals with some associated marrow edema. Shade Kee MD Chest X-Ray 12/21/160 Signed Impressions: Service Date/Time: Wednesday, December 21, 2016 22:20 - CONCLUSION: No acute disease. Paramjit Bae MD Assessment/Plan Problem List: (1) Anemia Status: Chronic (2) Diabetes Status: Acute (3) Sepsis Status: Acute (4) Diabetic foot ulcer Status: Chronic (5) Chronic kidney disease Status: Acute (6) Anxiety and depression Status: Acute (7) Acute renal failure superimposed on stage 3 chronic kidney disease Status: Acute (8) Osteomyelitis of left foot Status: Acute (9) Anaerobic bacterial infection Status: Acute Additional Plans & Procedures PLAN: I don't feel the patient would be a candidate for hyperbaric traction therapy given the amount of exposed bone and his mixed bacterial infection fraction. Probably benefit from below-knee amputation on the left leg. Discussed with Dr. Moctezuma from orthopedics. Signing off for now please reconsult me if necessary. Problem Qualifiers (1) Anemia: Qualified Code: D64.9 - Anemia, unspecified type (2) Diabetes: Qualified Code: E11.42 - Type 2 diabetes mellitus with diabetic polyneuropathy , without long-term current use of insulin (3) Sepsis: Qualified Code: A41.9 - Sepsis, due to unspecified organism (4) Diabetic foot ulcer: Qualified Code: E11.621 - Diabetic ulcer of toe of left foot associated with type 2 diabetes mellitus, unspecified ulcer stage (5) Chronic kidney disease: Qualified Code: N18.9 - Chronic kidney disease, unspecified CKD stage (6) Acute renal failure superimposed on stage 3 chronic kidney disease: Qualified Code: N17.9 - Acute renal failure superimposed on stage 3 chronic kidney disease, unspecified acute renal failure type (7) Osteomyelitis of left foot: Qualified Code: M86.472 - Chronic osteomyelitis of left foot with draining sinus Laureano Back DPM December 25, 2016 16:21
--- NOTE | 2016-12-25 16:37 | RADRPT ---
EXAM DATE/TIME: 12/25/2016 13:28 [place] COMPARISON: No previous studies available for comparison. INDICATIONS : Flank pain. MEDICAL HISTORY : Hypertension. Ulcers. Polyuria. Diabetes. Foot ulcer. SURGICAL HISTORY : Left toe amputation. ENCOUNTER: Initial ACUITY: 1 day PAIN SCORE: 2/10 LOCATION: Bilateral flank MEASUREMENTS: RIGHT KIDNEY: 9.7 x 4.8 x 5.5 cm LEFT KIDNEY: 11.4 x 6.3 x 6.0 cm FINDINGS: RIGHT KIDNEY: Renal cortex is normal in thickness and echotexture. No hydronephrosis, stone, or mass. LEFT KIDNEY: Renal cortex is normal in thickness and echotexture. No hydronephrosis, stone, or mass. BLADDER: Within normal limits given the degree of distension. CONCLUSION: 1. Unremarkable ultrasound examination of the kidneys. Hang Lin MD on December 25, 2016 at 16:35 Board Certified Radiologist. This report was verified electronically.
--- NOTE | 2016-12-25 16:48 | PD.CONS ---
cc: Tang Moctezuma MD HPI Service Orthopedic Surgeons Consult Requested By Dr Bass Reason for Consult Evaluation for below-knee amputation left lower extremity Primary Care Physician Freddie Barahona MD Admission Diagnosis Sepsis, diabetic foot, kidney injury, anemia, Diagnoses: (1) Osteomyelitis of left foot (2) Cellulitis (3) Acute renal failure superimposed on stage 3 chronic kidney disease (4) Diabetes (5) Sepsis Chief Complaint: Infection left foot History of Present Illness Patient is a 56-year-old noncompliant diabetic male with an open wound on the left foot of a multiple month duration. Patient has peripheral neuropathy. He previously had an amputation of the fifth toe of the left foot. MRI on admission showed osteomyelitis of the fifth metatarsal and fractures of the base of the fifth metatarsal, third and fourth metatarsals of the left foot. Patient is growing multiple bacteria from the wound including staph, enterococcus and mixed anaerobes. The patient underwent surgical debridement yesterday by Dr. Ramirez. His associate Dr. Bass evaluated the patient this morning. It was her opinion that the foot was not salvageable and orthopedic consultation was requested for possible below-knee amputation. The patient is awake and alert and answers questions appropriately. He is currently is having minimal discomfort. Review of Systems Reviewed and well outlined in the medical record Past Family Social History Past Medical History Allergies: Coded Allergies: No Known Allergies (Unverified , 12/06/16) Past Medical History Diabetes type 2 Hypertension Depression Anxiety Chronic left foot ulcer Past Surgical History Toe amputation Allergies: Coded Allergies: No Known Allergies (Unverified , 12/06/16) Active Ordered Medications Current Medications Medications (Trade) Dose Ordered Sig/Jeffy Route Start Time Stop Time Status Last Admin (Abilify) 5 mg DAILY PO 12/22/16 09:00 12/25/16 10:03 (NS Flush) 2 ml UNSCH PRN IV FLUSH 12/22/16 01:45 (NS Flush) 2 ml BID IV FLUSH 12/22/16 09:00 12/25/16 10:07 (Pepcid Inj) 10 mg Q12HR IV PUSH 12/22/16 09:00 12/25/16 10:07 Miscellaneous Information 1 Q361D XX 12/22/16 01:45 12/22/16 01:45 (Chlorhexidine 2% Cloth) 3 pack Taper DAILY@04 TOP 12/22/16 04:00 12/18/17 03:59 12/24/16 02:12 Chlorhexidine Gluconate 3 pack 3 pack UNSCH PRN TOP 12/22/16 01:45 (Zosyn 2.25 Gm Premix) 50 ml @ 100 mls/hr Q6H IV 12/22/16 15:00 12/25/16 14:09 Acetaminophen 650 mg 650 mg Q6H PRN PO 12/22/16 12:45 12/22/16 13:04 (Cleocin Inj/NS Inj) 104 ml @ 208 mls/hr Q8H IV 12/22/16 17:00 12/25/16 10:02 (D50w (Vial) Inj) 25 ml UNSCH PRN IV PUSH 12/22/16 15:45 Glucagon 1 mg 1 mg UNSCH PRN OTHER 12/22/16 15:45 (Levophed-Dextrose Drip) 250 ml @ 0 mls/hr TITRATE IV 12/23/16 12:00 Citalopram Hydrobromide 20 mg 20 mg DAILY PO 12/24/16 09:00 12/25/16 10:03 Vasopressin 40 units/Dextrose 100 ml @ 4.5 mls/hr [id number] IV 12/23/16 15:22 (Sodium Bicarbonate 8.4% Inj/1/2 NS 1000 ml Inj) 1,075 ml @ 75 mls/hr [id number] IV 12/24/16 08:00 12/25/16 13:47 Reported Meds & Active Scripts Active Lipperhey Ultra 2 Glucose System (Device) 1 Kit Kit 1 Kit .ROUTE DIRECTED Celexa (Citalopram Hydrobromide) 10 Mg Tab 10 Mg PO DAILY Abilify (Aripiprazole) 5 Mg Tab 5 Mg PO DAILY Lisinopril 5 Mg Tab 5 Mg PO DAILY Metformin ER (Metformin HCl) 1,000 Mg Stephanie 1,000 Mg PO DAILY With evening meal Family History Noncontributory Social History Denies tobacco or alcohol or illicit drug use. Physical Exam Vital Signs Vital Signs Date Time Temp Pulse Resp B/P Pulse Ox O2 Delivery O2 Flow Rate FiO2 12/25/16 14:00 83 12/25/16 12:00 100.1 84 31 116/55 92 12/25/16 12:00 84 12/25/16 10:00 85 12/25/16 08:00 86 12/25/16 08:00 98.1 86 32 133/64 94 12/25/16 07:00 95 Room Air 12/25/16 06:00 81 12/25/16 04:00 86 12/25/16 04:00 99.4 86 26 108/61 99 12/25/16 02:00 80 12/25/16 00:00 80 12/25/16 00:00 99.1 80 24 104/59 97 12/24/16 23:43 100 Nasal Cannula 1.00 12/24/16 22:00 76 12/24/16 20:00 83 12/24/16 20:00 98.5 83 28 105/63 96 12/24/16 19:00 91 Nasal Cannula 2.00 Physical Exam The examination is limited as the patient has a dressing in place. A description of the wound was reviewed in the medical record. He has exposed bone extending from the toe to the ankle. There is drainage. The patient has a restricted active range of motion of the ankle which is minimally tender. Decreased sensation of the toes. There is moderate edema of the calf with discoloration anteriorly and small blisters present with dried drainage on the bed sheet. The calf is soft to palpation with mild discomfort. Laboratory Laboratory Tests Test 12/25/16 12/25/16 03:30 07:13 Sodium Level 135 Potassium Level 4.0 Chloride Level 110 Carbon Dioxide Level 13.2 Anion Gap 12 Blood Urea Nitrogen 61 Creatinine 2.29 Estimat Glomerular Filtration 30 Rate Random Glucose 126 Calcium Level 8.1 Total Bilirubin 2.5 Aspartate Amino Transf 28 (AST/SGOT) Alanine Aminotransferase 15 (ALT/SGPT) Alkaline Phosphatase 67 Total Protein 5.7 Albumin 1.6 White Blood Count 8.4 Red Blood Count 2.39 Hemoglobin 7.4 Hematocrit 22.2 Mean Corpuscular Volume 93.0 Mean Corpuscular Hemoglobin 31.1 Mean Corpuscular Hemoglobin 33.4 Concent Red Cell Distribution Width 18.4 Platelet Count 49 Mean Platelet Volume 10.3 Neutrophils (%) (Auto) 77.1 Lymphocytes (%) (Auto) 7.9 Monocytes (%) (Auto) 14.3 Eosinophils (%) (Auto) 0.4 Basophils (%) (Auto) 0.3 Neutrophils # (Auto) 6.5 Lymphocytes # (Auto) 0.7 Monocytes # (Auto) 1.2 Eosinophils # (Auto) 0.0 Basophils # (Auto) 0.0 CBC Comment AUTO DIFF Differential Total Cells 100 Counted Neutrophils % (Manual) 69 Band Neutrophils % 14 Lymphocytes % 8 Monocytes % 8 Neutrophils # (Manual) 7.0 Differential Comment FINAL DIFF MANUAL Plasma Cells 1 Platelet Estimate LOW Platelet Morphology Comment NORMAL Date/Time Procedure Status Source Growth 12/23/16 08:22 Gram Stain - Final Complete Wound Bone 12/23/16 08:22 Wound Culture - Final Complete Staphylococcus Aureus Enterococcus Raffinosus Mixed Anaerobes 12/23/16 08:22 Fungal Smear - Final Resulted Wound Bone NO FUNGAL ELEMENTS SEEN. 12/23/16 08:22 Fungal Culture Resulted Wound Bone Pending 12/23/16 08:22 Acid Fast Stain - Final Resulted Wound Bone NO ACID FAST BACILLI SEEN 12/23/16 08:22 Mycobacterial Culture Resulted Wound Bone Pending 12/23/16 04:20 Cancelled Sputum Expectorated Sputum 12/22/16 04:58 Aerobic Blood Culture - Preliminary Resulted Blood Peripheral NO GROWTH IN 3 DAYS 12/22/16 04:58 Anaerobic Blood Culture - Preliminary Resulted Blood Peripheral NO GROWTH IN 3 DAYS Result Diagram: 12/25/16 0713 12/25/16 0330 Imaging Last 72 hours Impressions Foot X-Ray 12/23/16 0000 Signed Impressions: Service Date/Time: Friday, December 23, 2016 09:40 - CONCLUSION: Soft tissue swelling and post surgical changes. Laureano Grider MD Assessment & Plan Problem List: (1) Sepsis (2) Anaerobic bacterial infection (3) Cellulitis (4) Osteomyelitis of left foot (5) Diabetes (6) Hyperlipidemia Assessment and Plan The findings were discussed with the patient. The options for treatment were discussed. I have been consulted for possible below-knee amputation. The patient states that he has had differing opinions on his treatment options. Review of the record reveals a consensus with regards to the best option for below-knee amputation and this was discussed with the patient. At the present time, however, he is uncertain and is not consenting to it. He understands that would be my only involvement with regards to his care at this time. He will therefore discuss this further with his treating physicians and when he makes a decision to proceed, I will do so. I do have a concern with regards to the soft tissue at the level of the below-knee amputation and the possibility of more than 1 procedure to get a healed stump was discussed. Addition, the possibility of failure of the below-knee amputation requiring a higher level in the future was discussed. All his questions were answered to his satisfaction. Tang Moctezuma MD December 25, 2016 16:48
[2016-12-25] MEDS ORDERED: MISCELLANEOUS PHARMACY INFORMATION XX ONE (19:30)
[2016-12-26] VITALS (14 sets, daily range): BP systolic 112–147; BP diastolic 63–75; PULSE 67–78; RESP 19–32; TEMP 97.8–99.4; O2SAT 94–100
[2016-12-26] MEDS: CLINDAMYCIN INJ 600 MG in SODIUM CHLORIDE 0.9% INJ 100 ML IV SCH ×3 (02:02→16:00)
[2016-12-26] MEDS: SODIUM BICARBONATE 8.4% INJ 75 MEQ in SODIUM CHLOR 0.45% 1000 ML INJ 1,000 ML IV SCH ×2 (02:02→17:06)
[2016-12-26 03:06] LABS: AUTOMATED NEUTROPHIL # 7.4 TH/MM3 (1.8-7.7); BASOPHIL % 0.4 % (0.0-2.0); EOSINOPHIL # 0.1 TH/MM3 (0-0.4); EOSINOPHIL % 0.7 % (0.0-4.0); HEMATOCRIT 22.4 % (39.0-51.0); LYMPH % 10.4 % (9.0-44.0); MEAN CELL VOLUME 92.1 FL (80.0-100.0); MEAN CORPUSCULAR HGB CONC 33.7 % (32.0-36.0); MONO % 13.7 % (0.0-8.0); NEUT % 74.8 % (16.0-70.0); PLATELET COUNT 68 TH/MM3 (150-450); RED BLOOD COUNT 2.44 MIL/MM3 (4.50-5.90); RED CELL DISTRIBUTION WIDTH 17.9 % (11.6-17.2); WHITE BLOOD COUNT 9.9 TH/MM3 (4.0-11.0)
[2016-12-26 03:07] LABS: HEMO FLAGS AUTO DIFF
[2016-12-26 03:23] LABS: ANION GAP 9 MEQ/L (5-15); AST (GOT) 25 U/L (15-37); BICARBONATE 18.9 MEQ/L (21.0-32.0); BLOOD UREA NITROGEN 56 MG/DL (7-18); CHLORIDE 109 MEQ/L (98-107); GLOMERULAR FILTRATION RATE 32 ML/MIN (>89); POTASSIUM 3.7 MEQ/L (3.5-5.1); SODIUM (NA) 137 MEQ/L (136-145)
[2016-12-26 03:25] LABS: ALKALINE PHOSPHATASE 87 U/L (45-117); ALT (GPT) 13 U/L (12-78); LDH SERUM 176 U/L (87-241); TOTAL BILIRUBIN ADULT 2.5 MG/DL (0.2-1.0)
[2016-12-26] MEDS: PIPERACIL-TAZO 2.25 GM PREMIX 50 ML IV SCH ×2 (03:32→09:34)
[2016-12-26] MEDS: CHLORHEXIDINE GLUCONATE 2 % 1 PACK (2 CLOTHS) TOP SCH (04:00)
[2016-12-26 04:22] LABS: OVALOCYTES 1+ (NORMAL); PLATELET ESTIMATE SMEAR LOW (NORMAL); PLATELET MORPHOLOGY ENLARGED (NORMAL); SCAN/DIFF AUTO DIFF CONFIRMED
[2016-12-26 05:28] LABS: INDIRECT BILIRUBIN 0.6 MG/DL (0.0-0.8)
--- NOTE | 2016-12-26 05:55 | MB ---
cc: ELIZABET PATINO DATE OF 1960. DATE OF CONSULTATION December 25, 2016 REASON FOR CONSULTATION Patient with acute thrombocytopenia with HIT positive antibodies. HISTORY OF PRESENT ILLNESS This is a 56-year-old male with multiple medical problems including diabetes type 2, peripheral neuropathy, chronic lower extremity wound, history of depression, who developed weakness and diarrhea. He has a history of amputation of the fifth toe of the left foot. On admission an MRI showed osteomyelitis of the fifth metatarsal and fracture to the base of the fifth metatarsal, third and fourth metatarsal of the left foot. He has an infected wound with mixed vibha including staff, Enterococcus and mixed anaerobes. He has undergone surgical debridement. He is currently being evaluated for [id number] amputation. The patient developed acute thrombocytopenia on this admission. His platelet count was 89,000 but subsequently it dropped down to 49,000. A HIT antibody panel was ordered which was positive. The optical density on the HIT panel was high at 0.638. A serotonin release assay is pending. REVIEW OF SYSTEMS A comprehensive 14-point review of systems was completed which is negative except as described in the HPI. PAST MEDICAL HISTORY 1. Diabetes type 2. 2. Peripheral neuropathy. 3. Chronic left foot wound. 4. Hypertension 5. Depression, anxiety. PAST SURGICAL HISTORY Left fifth metatarsal amputation. MEDICATIONS Medications were reviewed in the EMR. ALLERGIES No known drug allergies. FAMILY HISTORY Reviewed and it is noncontributory to this admission. SOCIAL HISTORY He is single. He lives with a family member. He is unemployed. He does not smoke cigarettes. He rarely drinks alcohol. No history of illicit drug use. PHYSICAL EXAMINATION VITAL SIGNS: Blood pressure is 123/63, pulse is in the 70s, temperature is 98.2, O2 sats are 93% on room air. GENERAL: Obese, chronically ill-appearing male in no apparent distress. HEENT: Pupils are equal, round, reactive to light. EOMI. No oral thrush. No oral lesions. NECK: Supple. No JVD. No bruits. No lymphadenopathy. CHEST: Clear to auscultation bilaterally. CARDIAC: S1-S2. Regular rate and rhythm. ABDOMEN: Soft, distended due to obesity. No hepatosplenomegaly. EXTREMITIES: Significant left lower extremity edema. Both legs are edematous. The left foot has oozing clear material. There is evidence of chronic venous stasis and peripheral vascular disease. There are cellulitic changes with pitting edema. Pulses are decreased in bilateral lower extremities. NEURO: No focal deficits. PSYCHIATRIC: Mood and affect is appropriate. LABORATORY DATA WBC is 8.4, hemoglobin is 7.4, platelet count is 49. Serum chemistries show sodium of 135, potassium 4, chloride 110, CO2 13.2, anion gap 12, BUN 61, creatinine 2.29, GFR 30, glucose is 126, calcium is 8.1. AST is 28, ALT is 15, phos 67, total protein 5.7, albumin is 1.6. Again, total bilirubin is elevated to 2.5. IMAGING STUDIES Reviewed in the EMR. ASSESSMENT AND PLAN This is a 56-year-old male with multiple medical problems including diabetes, type 2, chronic left foot ulcer, depression, who presents to the emergency department with lethargy, left foot pain. He is currently undergoing evaluation for left foot infection/cellulitis. 1. Acute thrombocytopenia. He has chronic thrombocytopenia due to his multiple issues. His platelet count dropped during the course of this admission and HIT antibody panel was obtained. This is strongly positive. Given his multiple comorbidities, I would recommend starting this patient on argatroban. We will obtain a serotonin release assay to confirm the diagnosis of HIT. We will avoid all heparin products. Check LDH and haptoglobin. check hepatitis panel. Check fibrinogen. 2. Acute anemia due to multiple factors including sepsis, chronic leg wound, diabetes, etc. His total bilirubin is elevated. We will need to make sure that he does not having any underlying hemolysis. LDH, haptoglobin, direct Jose test as stated above. Obtain bilirubin fractions. He is symptomatic with fatigue and his hemoglobin is low. I will proceed with transfusing him 1 unit of packed red blood cells. We will review his peripheral smear. 3. Acute elevation of creatinine. He has chronic CKD. Thank you for allowing me to participate in the care of this patient. I will continue to follow this patient along. MD CHRIS Taylor/MEGHAN /1:37 AM /5:42 AM
[2016-12-26] MEDS: INSULIN ASPART SUPPLEMENTAL SCALE SQ SCH ×4 (06:07→21:33)
[2016-12-26] MEDS ORDERED: diphenhydrAMINE HCL 25 MG CAP PO PRN (07:00)
[2016-12-26] MEDS: ACETAMINOPHEN 325 MG TAB PO PRN ×2 (07:01→23:09)
[2016-12-26] MEDS ORDERED: ONETMIS2 (07:27)
[2016-12-26] MEDS ORDERED: ONETTES4 (07:27)
--- NOTE | 2016-12-26 08:37 | HHI.FPPN ---
Subjective Remarks Patient is doing well this morning. Denies fever, chills, chest pain, shortness of breath, pain, nausea, vomiting, diarrhea. Patient stated he was unsure of the plan or consensus among the physicians involved. I articulated that among the specialist we have on the case, amputation was recommended. He understands (Freddie Barahona MD R2) Objective Vitals Vital Signs Date Time Temp Pulse Resp B/P Pulse Ox O2 Delivery O2 Flow Rate FiO2 12/26/16 06:00 77 12/26/16 04:00 72 12/26/16 04:00 98.9 72 27 147/75 95 12/26/16 02:00 77 12/26/16 00:00 78 12/26/16 00:00 98.8 78 32 112/75 95 12/25/16 22:00 78 12/25/16 20:00 98.2 76 31 123/63 93 12/25/16 20:00 77 12/25/16 19:00 93 Room Air 12/25/16 18:00 84 12/25/16 16:00 80 12/25/16 16:00 99.1 80 32 120/57 92 12/25/16 14:00 83 12/25/16 12:00 100.1 84 31 116/55 92 12/25/16 12:00 84 12/25/16 10:00 85 I/O 12/25/16 12/25/16 12/25/16 12/26/16 12/26/16 12/26/16 07:00 15:00 23:00 07:00 15:00 23:00 Intake Total 1627 ml 667 ml 1412 ml 1322 ml Output Total 700 ml 726 ml 851 ml 801 ml Balance 927 ml -59 ml 561 ml 521 ml Intake Oral 960 ml 0 ml 720 ml 720 ml IV Total 667 ml 667 ml 692 ml 602 ml Output Urine Total 700 ml 725 ml 850 ml 800 ml Stool Total 0 ml 1 ml 1 ml 1 ml (Freddie Barahona MD R2) Result Diagram: 12/26/16 0239 12/26/16 0239 Objective Remarks GENERAL: This is a well-nourished, well-developed patient, in no apparent distress. SKIN: Warm left lower extremity, venostasis changes of both lower extremities, worse on left with cellulitic changes and pitting edema to knee HEAD: Atraumatic. Normocephalic. No temporal or scalp tenderness. CARDIOVASCULAR: Tachycardic, regular rhythm. RESPIRATORY: Clear to auscultation. Breath sounds equal bilaterally. No wheezes , rales, or rhonchi. GASTROINTESTINAL: Abdomen soft, non-tender, nondistended. No hepato-splenomegaly , or palpable masses. No guarding. MUSCULOSKELETAL: Status post surgical procedure on the left. Currently wrapped with Christophe bandage per podiatry. Able to move toes on left. Sensation intact although diminished. NEUROLOGICAL: Awake and alert. Cranial nerves II through XII intact. Sensation diminished in left foot compared to the right, some sensation present in distal left lower extremity. Unable to locate which toe is being touched on the left. (Freddie Barahona MD R2) A/P Assessment and Plan 56-year-old male with a past medical history of complicated type 2 diabetes presents septic with diabetic foot wound on the left. Podiatry, infectious disease, critical care consult. Plan as below. Discharge Planning Pending clinical improvement and specialty recommendations. Case management consulted for discharge needs. Physical therapy recommends PT at rehabilitation or home health care. (Freddie Barahona MD R2) Attending Attestation Patient seen and examined. Case reviewed and discussed with the resident team. Agree with plan of care as discussed with me and documented in the resident note. (Brigid Lenz MD) Problem List: (1) Diabetic foot ulcer Status: Chronic Plan: Podiatry consulted Infectious disease consult Physical therapy consult. Orthopedic surgery consult per podiatry on 12/25 for possible left BKA -12/23: Status post left foot ankle incision drainage debridement partial resection of the 5th metatarsal head. -Intraoperative findings show severe necrosis down to periosteum of the midfoot , abscess severe. -Podiatry to see how the patient does over the next few days before trying a partial resection. However, if the infection continues to cause further necrosis, his extremity may be nonviable and he may require a below-knee indication. -12/25: Multiple specialists including podiatry, orthopedic surgery are recommending amputation. Antibiotics per ID: Zosyn IV every 6 hours (started 12/22), clindamycin IV every 8 hours (started 12/22) Wound culture: Staph aureus, strep, mixed anaerobes, gram-negative gena Blood Cultures positive as listed under sepsis Bone pathology pending (2) Sepsis Status: Acute Plan: Infectious disease consult Vitals currently stable. Continue half normal saline with bicarbonate at 75 mL's per hour per critical care. Sources of sepsis is left foot wound. See antibiotic management under diabetic foot wound Blood cultures show gram-negative gena and gram-positive cocci 4. (3) HIT (heparin-induced thrombocytopenia) Status: Acute Plan: Hematology consult Serotonin release assay ordered Heparin discontinued He will need argatroban (4) Thrombocytopenia Status: Acute Plan: Hematology consult HIT antibody positive; see HIT problem Heparin discontinued (5) Acute renal failure superimposed on stage 3 chronic kidney disease Status: Acute Plan: Likely prerenal in origin Nephrology consult for persistent TAYLOR IV fluids as below (6) Cellulitis Status: Acute Plan: -Cellulitis of left lower leg and left foot -See plan above for sepsis (7) Anemia Status: Chronic Plan: Hematology consult Status post 2 units packed red blood cells on 12/22. Status post 2 units packed red blood cells on 12/25. Follow-up CBC pending Continue to monitor; transfuse when less than 7 Hemoccult ordered Vitamin B12, B1, folate, soluble transferrin receptor pending (8) Diabetes Status: Acute Plan: -Hemoglobin A1c on 12/11 was 6.9 Sliding scale insulin while in hospital. Patient has had diarrhea on metformin, likely will need to be discontinued as an outpatient and put on glipizide (9) Social issues Status: Acute Plan: Patient lives with his 90-year-old aunt who has dementia and is unable to take care of the patient on discharge. Case management consulted to assist with disposition. (10) Anxiety and depression Status: Acute Plan: -Continue home Abilify 5 mg by mouth daily and Celexa 10 mg by mouth daily -Psychiatry consulted: Diagnosed with dysthymia; he has appropriate follow-up with psychiatry services in the community (11) FEN/DVT PPX/GI PPX Status: Acute Plan: Fluids: Per critical care, Half normal saline with bicarbonate 75 miles per hour Electrolytes: Will monitor and replace as needed Nutrition: Diabetic diet DVT Prophylaxis: Argatroban per hematology recs. Heparin contraindicated GI Prophylaxis: Famotidine 10 mg IV every 12 hours (Freddie Barahona MD R2) Problem Qualifiers (1) Diabetic foot ulcer: Qualified Code: E11.621 - Diabetic ulcer of toe of left foot associated with type 2 diabetes mellitus, unspecified ulcer stage (2) Sepsis: Qualified Code: A41.9 - Sepsis, due to unspecified organism (3) Acute renal failure superimposed on stage 3 chronic kidney disease: Qualified Code: N17.9 - Acute renal failure superimposed on stage 3 chronic kidney disease, unspecified acute renal failure type (4) Anemia: Qualified Code: D64.9 - Anemia, unspecified type (5) Diabetes: Qualified Code: E11.42 - Type 2 diabetes mellitus with diabetic polyneuropathy , without long-term current use of insulin Freddie Barahona MD R2 December 26, 2016 08:37 Brigid Lenz MD December 27, 2016 12:59
--- NOTE | 2016-12-26 09:14 | HHI.NPPN ---
Subjective Additional Remarks Patient with foot infection Review of Systems General Constitutional: Fatigue Musculoskeletal MS: Pain/Stiffness Objective Data Data 12/25/16 12/26/16 19:00 07:00 Intake Total 667 ml 2734 ml Output Total 726 ml 1652 ml Balance -59 ml 1082 ml Intake Oral 0 ml 1440 ml IV Total 667 ml 1294 ml Output Urine Total 725 ml 1650 ml Stool Total 1 ml 2 ml Vital Signs Date Time Temp Pulse Resp B/P Pulse Ox O2 Delivery O2 Flow Rate FiO2 12/26/16 06:00 77 12/26/16 04:00 72 12/26/16 04:00 98.9 72 27 147/75 95 12/26/16 02:00 77 12/26/16 00:00 78 12/26/16 00:00 98.8 78 32 112/75 95 12/25/16 22:00 78 12/25/16 20:00 98.2 76 31 123/63 93 12/25/16 20:00 77 12/25/16 19:00 93 Room Air 12/25/16 18:00 84 12/25/16 16:00 80 12/25/16 16:00 99.1 80 32 120/57 92 12/25/16 14:00 83 12/25/16 12:00 100.1 84 31 116/55 92 12/25/16 12:00 84 12/25/16 10:00 85 -: 12/26/16 0239 12/26/16 0239 Microbiology 12/25/16 Aerobic Blood Culture, Received Pending 12/25/16 Anaerobic Blood Culture, Received Pending 12/25/16 Aerobic Blood Culture, Received Pending 12/25/16 Anaerobic Blood Culture, Received Pending Physical Exam General Appearance: Well Developed Neck Neck Exam: Neck Supple Pulmonary Resp Exam: Clear Bilaterally, Breath Sounds Equal Cardiology CV Exam: Regular, Normal Sinus Rhythm Gastrointestinal/Abdomen GI Exam: Soft, Non-Tender, Bowel Sounds Present Extremeties Extremities Exam: Moderate Edema Extremeties Remarks "Wrapped in dressing Neurologic Neuro Exam: Alert, Awake Assessment/Plan Problem List: (1) Acute renal failure superimposed on stage 3 chronic kidney disease Plan: Patient has a kidney ultrasound which was unremarkable Creatinine slowly declining with treatment of infection and hydration Sepsis as the source of kidney dysfunction on IVF 1/2 NS with NaHCO3 75 meq at 75 cc/hr It is being closely monitored there is a possibility of amputation (2) Diabetic foot ulcer Plan: Patient is being followed by Dr. Ramirez (3) Cellulitis Plan: On clindamycin and Zosyn (4) Thrombocytopenia Plan: History of HIT hematology is following he is been considered for Argatroban treatment (5) HIT (heparin-induced thrombocytopenia) Plan: HIT positive (6) Osteomyelitis of left foot Plan: possible amputation if he agrees Problem Qualifiers (1) Acute renal failure superimposed on stage 3 chronic kidney disease: Qualified Code: N17.9 - Acute renal failure superimposed on stage 3 chronic kidney disease, unspecified acute renal failure type (2) Diabetic foot ulcer: Qualified Code: E11.621 - Diabetic ulcer of toe of left foot associated with type 2 diabetes mellitus, unspecified ulcer stage (3) Osteomyelitis of left foot: Qualified Code: M86.472 - Chronic osteomyelitis of left foot with draining sinus Shelley Ctoto MD December 26, 2016 09:14
[2016-12-26] MEDS: SODIUM CHLORIDE 0.9% FLUSH 10 ML FLUSH IV FLUSH SCH ×2 (09:34→20:22)
[2016-12-26] MEDS: FAMOTIDINE 20 MG/2 ML VIAL IV PUSH SCH ×2 (09:34→20:22)
[2016-12-26] MEDS: CITALOPRAM HYDROBROMIDE 20 MG TAB PO SCH (09:34)
[2016-12-26] MEDS: VASOPRESSIN INJ 40 UNITS in DEXTROSE 5% IN WATER 100ML INJ 98 ML IV SCH ×2 (09:35)
[2016-12-26] MEDS: ARIPiprazole 5 MG TAB PO SCH (09:35)
--- NOTE | 2016-12-26 13:49 | HHI.IDPN ---
Note Infectious Disease Note Patient without complaints. Denies chills or nausea. Still appears fatigued. Afebrile. Blood culture has staph aureus and Pasteurella. Foot culture has mixed organisms including anaerobes and staph aureus. The patient presented with weakness and diarrhea. PAST MEDICAL HISTORY: 1. Diabetes mellitus. 2. Hypertension. 3. Depression. 4. Anxiety. 5. Chronic left foot ulcer. 6. Fifth toe amputation in 2008. ALLERGIES: NO KNOWN DRUG ALLERGIES. ANTIBIOTICS: 1. Piperacillin / Tazobactam. 2. Clindamycin. OBJECTIVE: Vital Signs Date Time Temp Pulse Resp B/P Pulse Ox O2 Delivery O2 Flow Rate FiO2 12/26/16 12:00 67 12/26/16 12:00 97.8 67 19 132/65 99 12/26/16 10:00 68 12/26/16 09:30 98.1 71 20 130/64 97 12/26/16 09:15 98.2 72 21 140/67 97 12/26/16 08:00 74 12/26/16 08:00 98.2 74 26 143/67 95 12/26/16 07:00 95 Room Air 12/26/16 06:00 77 12/26/16 04:00 72 12/26/16 04:00 98.9 72 27 147/75 95 12/26/16 02:00 77 12/26/16 00:00 78 12/26/16 00:00 98.8 78 32 112/75 95 12/25/16 22:00 78 12/25/16 20:00 98.2 76 31 123/63 93 12/25/16 20:00 77 12/25/16 19:00 93 Room Air 12/25/16 18:00 84 12/25/16 16:00 80 12/25/16 16:00 99.1 80 32 120/57 92 12/25/16 14:00 83 12/25/16 12/25/16 12/26/16 15:00 23:00 07:00 Intake Total 667 ml 1412 ml 1322 ml Output Total 726 ml 851 ml 801 ml Balance -59 ml 561 ml 521 ml Intake Oral 0 ml 720 ml 720 ml IV Total 667 ml 692 ml 602 ml Output Urine Total 725 ml 850 ml 800 ml Stool Total 1 ml 1 ml 1 ml Laboratory Tests Test 12/25/16 12/26/16 07:13 02:39 White Blood Count 8.4 TH/MM3 9.9 TH/MM3 Red Blood Count 2.39 MIL/MM3 2.44 MIL/MM3 Hemoglobin 7.4 GM/DL 7.6 GM/DL Hematocrit 22.2 % 22.4 % Mean Corpuscular Volume 93.0 FL 92.1 FL Mean Corpuscular Hemoglobin 31.1 PG 31.0 PG Mean Corpuscular Hemoglobin 33.4 % 33.7 % Concent Red Cell Distribution Width 18.4 % 17.9 % Platelet Count 49 TH/MM3 68 TH/MM3 Mean Platelet Volume 10.3 FL 10.8 FL Neutrophils (%) (Auto) 77.1 % 74.8 % Lymphocytes (%) (Auto) 7.9 % 10.4 % Monocytes (%) (Auto) 14.3 % 13.7 % Eosinophils (%) (Auto) 0.4 % 0.7 % Basophils (%) (Auto) 0.3 % 0.4 % Neutrophils # (Auto) 6.5 TH/MM3 7.4 TH/MM3 Lymphocytes # (Auto) 0.7 TH/MM3 1.0 TH/MM3 Monocytes # (Auto) 1.2 TH/MM3 1.3 TH/MM3 Eosinophils # (Auto) 0.0 TH/MM3 0.1 TH/MM3 Basophils # (Auto) 0.0 TH/MM3 0.0 TH/MM3 CBC Comment AUTO DIFF AUTO DIFF Differential Total Cells 100 Counted Neutrophils % (Manual) 69 % Band Neutrophils % 14 % Lymphocytes % 8 % Monocytes % 8 % Neutrophils # (Manual) 7.0 TH/MM3 Differential Comment FINAL DIFF AUTO DIFF MANUAL CONFIRMED Plasma Cells 1 % Platelet Estimate LOW LOW Platelet Morphology Comment NORMAL ENLARGED Ovalocytes 1+ Blood Smear Pathologist Review Haptoglobin 357 MG/DL Laboratory Tests Test 12/25/16 12/26/16 03:30 02:39 Sodium Level 135 MEQ/L 137 MEQ/L Potassium Level 4.0 MEQ/L 3.7 MEQ/L Chloride Level 110 MEQ/L 109 MEQ/L Carbon Dioxide Level 13.2 MEQ/L 18.9 MEQ/L Anion Gap 12 MEQ/L 9 MEQ/L Blood Urea Nitrogen 61 MG/DL 56 MG/DL Creatinine 2.29 MG/DL 2.13 MG/DL Estimat Glomerular Filtration 30 ML/MIN 32 ML/MIN Rate Random Glucose 126 MG/DL 116 MG/DL Calcium Level 8.1 MG/DL 7.8 MG/DL Total Bilirubin 2.5 MG/DL 2.5 MG/DL Aspartate Amino Transf 28 U/L 25 U/L (AST/SGOT) Alanine Aminotransferase 15 U/L 13 U/L (ALT/SGPT) Alkaline Phosphatase 67 U/L 87 U/L Total Creatine Kinase 101 U/L Total Protein 5.7 GM/DL 6.1 GM/DL Albumin 1.6 GM/DL 1.7 GM/DL Direct Bilirubin 1.9 MG/DL Indirect Bilirubin 0.6 MG/DL Lactate Dehydrogenase 176 U/L Microbiology Date/Time Procedure Status Source Growth 12/25/16 21:20 Aerobic Blood Culture - Preliminary Resulted Blood Peripheral NO GROWTH IN 1 DAY 12/25/16 21:20 Anaerobic Blood Culture - Preliminary Resulted Blood Peripheral NO GROWTH IN 1 DAY 12/25/16 21:26 Aerobic Blood Culture - Preliminary Resulted Blood Peripheral NO GROWTH IN 1 DAY 12/25/16 21:26 Anaerobic Blood Culture - Preliminary Resulted Blood Peripheral NO GROWTH IN 1 DAY Microbiology Date/Time Procedure Status Source Growth 12/23/16 04:20 Cancelled Sputum Expectorated Sputum 12/23/16 08:20 Gram Stain - Final Complete Wound Foot 12/23/16 08:20 Wound Culture - Final Complete Staphylococcus Aureus Enterococcus Raffinosus Mixed Anaerobes 12/23/16 08:20 Acid Fast Stain - Final Resulted Wound Foot NO ACID FAST BACILLI SEEN 12/23/16 08:20 Mycobacterial Culture Resulted Wound Foot Pending 12/23/16 08:20 Fungal Smear - Final Resulted Wound Foot NO FUNGAL ELEMENTS SEEN. 12/23/16 08:20 Fungal Culture Resulted Wound Foot Pending 12/23/16 08:22 Acid Fast Stain - Final Resulted Wound Bone NO ACID FAST BACILLI SEEN 12/23/16 08:22 Mycobacterial Culture Resulted Wound Bone Pending 12/23/16 08:22 Fungal Smear - Final Resulted Wound Bone NO FUNGAL ELEMENTS SEEN. 12/23/16 08:22 Fungal Culture Resulted Wound Bone Pending 12/23/16 08:22 Gram Stain - Final Complete Wound Bone 12/23/16 08:22 Wound Culture - Final Complete Staphylococcus Aureus Enterococcus Raffinosus Mixed Anaerobes IMAGING: Renal Ultrasound 12/25/16 0000 Signed Impressions: Service Date/Time: Sunday, December 25, 2016 13:28 - CONCLUSION: 1. Unremarkable ultrasound examination of the kidneys. Hang Lin MD Foot X-Ray 12/23/16 0000 Signed Impressions: Service Date/Time: Friday, December 23, 2016 09:40 - CONCLUSION: Soft tissue swelling and post surgical changes. Laureano Grider MD Foot MRI 12/22/16 0000 Signed Impressions: Service Date/Time: Thursday, December 22, 2016 16:49 - CONCLUSION: 1. Diffuse marrow edema involving the remaining portion of the left 5th metatarsal with extensive overlying soft-tissue swelling. The findings raise the possibility of osteomyelitis of the 5th metatarsal and overlying cellulitis. Clinical correlation is recommended. 2. Questionable nondisplaced fractures involving the bases of the left 3rd and 4th metatarsals with some associated marrow edema. Shade Kee MD Chest X-Ray 12/21/162149 Signed Impressions: Service Date/Time: Wednesday, December 21, 2016 22:20 - CONCLUSION: No acute disease. Paramjit Bae MD PHYSICAL EXAMINATION: GENERAL: No acute distress. HEAD, EYES, EARS, NOSE, THROAT: No icterus. Oropharynx without lesions. NECK: No adenopathy or swelling. LUNGS: Clear to auscultation. HEART: Regular S1-S2 without murmurs, rubs or gallops. ABDOMEN: Bowel sounds present, soft, obese, nontender. No masses palpable. EXTREMITIES: The left foot open necrotic wound with tendon and bone exposed at the ankle and foot and dusky skin changes and foul odor. The left foot has 3 + edema. SKIN: Warm and moist. NEUROLOGIC: Nonfocal. PSYCHIATRIC: The patient is calm and cooperative. IMPRESSION: 1. Sepsis on admission based on patient with fever and elevated white blood cell count and infection at the left foot in a patient with necrotic gas forming organism and cellulitis. Staph and Pasteurella. 2. Cellulitis of the left foot. Marrow edema at the 5th metatarsal as well as the 3rd and 4th metatarsal suggesting osteo. 3. Diabetes mellitus. 4. Acute kidney disease. RECOMMENDATIONS: 1. Change piperacillin / tazobactam to Unasyn. 2. Continue clindamycin. Avoid Vancomycin in this patient with acute kidney disease. 3. Monitor blood cultures. 4. Monitor repeat blood cultures. I do not think the wound will heal or can be resolved with limb salvage. Patient is at risk of recurring sepsis without surgery. He appears hesitant to have surgery. he has been made aware of the risk of no surgery. Manny Romano MD December 26, 2016 13:49
--- NOTE | 2016-12-26 14:30 | HHI.CCPN ---
Subjective Remarks/Hospital Course 12/22: 56 year old obese male with history of diabetes, recently started on metformin and Abilify, presents for evaluation of weakness and diarrhea for the past 5 days. He has a history of diabetes, depression as well as a chronic wound to the left leg. Patient was recently put back on medications for both depression, diabetes and has an appointment with Dr. Back for wound care for the left chronic wound. This was done at the end of last month when he was seen at [facility]. Per patient he has been compliant with the medications. He is not able to check his blood sugars for the past couple days as he cannot really stand up because of the discomfort and weakness. Patient was evaluated by ID and Dr. Ramirez from podiatry and was diagnosed to have an infected ulcer with cellulitis involving left leg with gas seen on his left lower extremity x-ray from admission. A bedside limited incision and drainage was performed by Dr. Ramirez and cultures were sent. 12/23: Patient received 2 units PRBCs on 12/22 for hemoglobin of 7.1. He was taken to the OR this morning and underwent Left foot ankle incision drainage debridement partial resection of the 5th metatarsal head. Findings: severe necrosis down to periosteum of the midfoot, abscess severe. Postoperatively in PACU patient received 5 mg of Lopressor IV anesthesia for tachycardia following which he developed hypotension and was bolused 2 L normal saline and transferred back to [facility]. Patient remained hypotensive and was initiated on Levophed 2 mics per minute. He was also bolus 2 L of normal saline additionally. When I evaluated the patient he was otherwise awake and alert requiring a by mouth diet and did not appear to be in any acute distress and had just been weaned off Levophed following fluid bolus. 12/24: Off levophed since last evening. Resting comfortably in bed. Denies SOB/ abd pain. Tolerating PO diet. 12/25: Awake, alert, following commands, denies any SOB/ chills. Tolerating PO diet. 12/26: Awake and alert. Denies any shortness of breath. Was offered below-knee amputation by orthopedics however currently patient wishes to hold off. Objective Vital Signs Date Time Temp Pulse Resp B/P Pulse Ox O2 Delivery O2 Flow Rate FiO2 12/26/16 14:00 68 12/26/16 12:00 97.8 19 132/65 99 12/26/16 07:00 Room Air 12/24/16 23:43 1.00 Intake and Output 12/25/16 12/25/16 12/26/16 08:00 16:00 00:00 Intake Total 1627 ml 667 ml 1412 ml Output Total 700 ml 726 ml 851 ml Balance 927 ml -59 ml 561 ml Result Diagram: 12/26/16 0239 12/26/16 0239 Imaging Last 24 hours Impressions Chest X-Ray 12/21/162149 Signed Impressions: Service Date/Time: Wednesday, December 21, 2016 22:20 - CONCLUSION: No acute disease. Paramjit Bae MD Objective Remarks GENERAL: Well-nourished, well-developed patient. SKIN: Warm and dry. HEAD: Normocephalic. EYES: No scleral icterus. No injection or drainage. NECK: Supple, trachea midline. No JVD or lymphadenopathy. CARDIOVASCULAR: Regular rate and rhythm without murmurs, gallops, or rubs. RESPIRATORY: Breath sounds equal bilaterally. No accessory muscle use. GASTROINTESTINAL: Abdomen soft, non-tender, nondistended. MUSCULOSKELETAL: No cyanosis, or edema. BACK: Nontender without obvious deformity. No CVA tenderness. EXTREMITIES: Bilateral edema(more on left), dressing over left foot/leg with Christophe wrap in place following surgery 12/23 A/P Assessment and Plan Sepsis - Due to infected ulcer/cellulitis/ osteomyelitis involving left foot s/p Left foot ankle incision drainage, debridement, partial resection of the 5th metatarsal head. - s/p IV fluid resuscitation -On IV Zosyn/clindamycin per ID. Zosyn switched to Unasyn on 12/26. -Follow up cultures. Blood cultures growing MSSA and Pasteurella. Bone cultures growing staph aureus/ strep/enetrococcus - Follow-up Intra-Op cultures/ sensitivity sent by Dr. Ramirez 12/23 Diabetes - Hold metformin - Possible source of diarrhea - Insulin sliding scale. Hypotension - Hold antihypertensive meds. Became hypotensive following the dose of Lopressor postoperatively on 12/23 which is now resolved. - S/p Aggressive IV fluids resuscitation. Levophed/vasopressin as needed for pressor support - currently off pressors. Chronic infected left food ulcer with underlying osteomyelitis/abscess -Being followed by Dr. Ramirez from podiatry. S/B orho, recommended left BKA however pt wishes to hold off. TAYLOR - Strict intake output, monitor and replete electro lites, follow BUN/ creatinine. Patient remains on 1/2NS with bicarbonate. Non-anion gap hyperchloremic metabolic acidosis probably secondary to normal saline used during resuscitation. Nephrology following Anemia Thrombocytopenia - Status post 2 units PRBCs transfused on 12/23. B-12, soluble transferrin receptor assay pending. - Thrombocytopenia probably secondary to sepsis. Follow CBC. HIT screen positive, holding heparin. Ordered DARIEN, hematology consulted as patient will need anticoagulation due to HIT. Anticoagulation to be decided by hematology as patient has been recommended a BKA. DVT GI prophylaxis - Subcutaneous heparin(held due to thrombocytopenia) and Pepcid D/W Family medicine service. Blaine Gavin MD December 26, 2016 14:30
[2016-12-26] MEDS: AMPICILLIN-SULBACTAM INJ 1,500 MG in SODIUM CHLORIDE 0.9% INJ 100 ML IV SCH ×2 (16:56→20:23)
[2016-12-26 17:49] LABS: AUTOMATED NEUTROPHIL # 6.3 TH/MM3 (1.8-7.7); BASOPHIL % 0.2 % (0.0-2.0); EOSINOPHIL # 0.1 TH/MM3 (0-0.4); EOSINOPHIL % 1.1 % (0.0-4.0); LYMPH % 9.8 % (9.0-44.0); LYMPHOCYTE # 0.8 TH/MM3 (1.0-4.8); MEAN CELL VOLUME 91.7 FL (80.0-100.0); MEAN CORPUSCULAR HEMOGLOBIN 31.5 PG (27.0-34.0); MEAN CORPUSCULAR HGB CONC 34.4 % (32.0-36.0); MONO % 12.5 % (0.0-8.0); NEUT % 76.4 % (16.0-70.0); PLATELET COUNT 70 TH/MM3 (150-450); RED BLOOD COUNT 2.72 MIL/MM3 (4.50-5.90); RED CELL DISTRIBUTION WIDTH 17.6 % (11.6-17.2); WHITE BLOOD COUNT 8.2 TH/MM3 (4.0-11.0)
[2016-12-26 17:52] LABS: HEMO FLAGS AUTO DIFF
[2016-12-26 18:01] LABS: APTT (PATIENT) 27.2 SEC (24.3-30.1); INTERNATIONAL NORMALIZED RATIO 1.2 RATIO; PROTHROMBIN TIME - PATIENT 12.9 SEC (9.8-11.6)
[2016-12-26] MEDS: ARGATROBAN 250 MG in NS 250 ML IV SCH (18:14)
[2016-12-26 18:28] LABS: ACANTHOCYTES OCC (NORMAL); OVALOCYTES 1+ (NORMAL); PLATELET ESTIMATE SMEAR LOW (NORMAL); PLATELET MORPHOLOGY NORMAL (NORMAL); SCAN/DIFF AUTO DIFF CONFIRMED
[2016-12-26 22:42] LABS: APTT (PATIENT) 73.1 SEC (24.3-30.1)
--- NOTE | 2016-12-26 23:29 | PD.ONC.PN ---
Subjective Subjective Remarks clinically the same discussed rationale for starting argatroban gtt Orthopedics recommended BKA d/w rn Objective Data Date Time Temp Pulse Resp B/P Pulse Ox O2 Delivery O2 Flow Rate FiO2 12/26/16 20:00 99.0 76 25 146/63 94 12/26/16 20:00 73 12/26/16 19:00 95 Room Air 12/26/16 18:00 69 12/26/16 16:00 99.4 72 19 145/73 100 12/26/16 16:00 71 12/26/16 14:00 68 12/26/16 12:00 67 12/26/16 12:00 97.8 67 19 132/65 99 12/26/16 10:00 68 12/26/16 09:30 98.1 71 20 130/64 97 12/26/16 09:15 98.2 72 21 140/67 97 12/26/16 08:00 74 12/26/16 08:00 98.2 74 26 143/67 95 12/26/16 07:00 95 Room Air 12/26/16 06:00 77 12/26/16 04:00 72 12/26/16 04:00 98.9 72 27 147/75 95 12/26/16 02:00 77 12/26/16 00:00 78 12/26/16 00:00 98.8 78 32 112/75 95 12/26/16 12/26/16 12/26/16 07:00 15:00 23:00 Intake Total 1322 ml 2374 ml 1389 ml Output Total 801 ml 800 ml 1001 ml Balance 521 ml 1574 ml 388 ml Result Diagram: 12/26/16 1735 12/26/16 0239 Laboratory Results Laboratory Tests Test 12/26/16 12/26/16 12/26/16 02:39 17:35 21:29 White Blood Count 9.9 TH/MM3 8.2 TH/MM3 Red Blood Count 2.44 MIL/MM3 2.72 MIL/MM3 Hemoglobin 7.6 GM/DL 8.6 GM/DL Hematocrit 22.4 % 25.0 % Mean Corpuscular Volume 92.1 FL 91.7 FL Mean Corpuscular Hemoglobin 31.0 PG 31.5 PG Mean Corpuscular Hemoglobin 33.7 % 34.4 % Concent Red Cell Distribution Width 17.9 % 17.6 % Platelet Count 68 TH/MM3 70 TH/MM3 Mean Platelet Volume 10.8 FL 10.9 FL Neutrophils (%) (Auto) 74.8 % 76.4 % Lymphocytes (%) (Auto) 10.4 % 9.8 % Monocytes (%) (Auto) 13.7 % 12.5 % Eosinophils (%) (Auto) 0.7 % 1.1 % Basophils (%) (Auto) 0.4 % 0.2 % Neutrophils # (Auto) 7.4 TH/MM3 6.3 TH/MM3 Lymphocytes # (Auto) 1.0 TH/MM3 0.8 TH/MM3 Monocytes # (Auto) 1.3 TH/MM3 1.0 TH/MM3 Eosinophils # (Auto) 0.1 TH/MM3 0.1 TH/MM3 Basophils # (Auto) 0.0 TH/MM3 0.0 TH/MM3 CBC Comment AUTO DIFF AUTO DIFF Differential Comment AUTO DIFF AUTO DIFF CONFIRMED CONFIRMED Platelet Estimate LOW LOW Platelet Morphology Comment ENLARGED NORMAL Ovalocytes 1+ 1+ Blood Smear Pathologist Review Haptoglobin 357 MG/DL Activated Partial 24.0 SEC 27.2 SEC 73.1 SEC Thromboplast Time Fibrinogen 648 mg/dL Sodium Level 137 MEQ/L Potassium Level 3.7 MEQ/L Chloride Level 109 MEQ/L Carbon Dioxide Level 18.9 MEQ/L Anion Gap 9 MEQ/L Blood Urea Nitrogen 56 MG/DL Creatinine 2.13 MG/DL Estimat Glomerular Filtration 32 ML/MIN Rate Random Glucose 116 MG/DL Calcium Level 7.8 MG/DL Total Bilirubin 2.5 MG/DL Direct Bilirubin 1.9 MG/DL Indirect Bilirubin 0.6 MG/DL Aspartate Amino Transf 25 U/L (AST/SGOT) Alanine Aminotransferase 13 U/L (ALT/SGPT) Alkaline Phosphatase 87 U/L Lactate Dehydrogenase 176 U/L Total Protein 6.1 GM/DL Albumin 1.7 GM/DL Blood Type O POSITIVE Antibody Screen NEGATIVE Direct Antiglobulin Test NEGATIVE (Mathew) Crossmatch Leukocyte-Reduced Red Blood Cells Blood Bank Comment Acanthocytes OCC Prothrombin Time 12.9 SEC Prothromb Time International 1.2 RATIO Ratio Vitamin B12 Level GREATER THAN 2000 PG/ML Folate 10.0 NG/ML Culture Results Microbiology Date/Time Procedure Status Source Growth 12/25/16 21:20 Aerobic Blood Culture - Preliminary Resulted Blood Peripheral NO GROWTH IN 1 DAY 12/25/16 21:20 Anaerobic Blood Culture - Preliminary Resulted Blood Peripheral NO GROWTH IN 1 DAY 12/25/16 21:26 Aerobic Blood Culture - Preliminary Resulted Blood Peripheral NO GROWTH IN 1 DAY 12/25/16 21:26 Anaerobic Blood Culture - Preliminary Resulted Blood Peripheral NO GROWTH IN 1 DAY Administered Medications Medications (Trade) Dose Ordered Sig/Jeffy Route PRN Reason Start Time Stop Time Status Last Admin Dose Admin Aripiprazole (Abilify) 5 mg DAILY PO 12/22/16 09:00 12/26/16 09:35 Sodium Chloride (NS Flush) 2 ml BID IV FLUSH 12/22/16 09:00 12/26/16 20:22 Famotidine (Pepcid Inj) 10 mg Q12HR IV PUSH 12/22/16 09:00 12/26/16 20:22 Miscellaneous Information 1 [id number] XX 12/22/16 01:45 12/22/16 01:45 Chlorhexidine Gluconate (Chlorhexidine 2% Cloth) 3 pack Taper DAILY@04 TOP 12/22/16 04:00 12/18/17 03:59 12/24/16 02:12 Acetaminophen 650 mg 650 mg Q6H PRN PO FEVER 12/22/16 12:45 12/26/16 23:09 Clindamycin Phosphate/Sodium Chloride (Cleocin Inj/NS Inj) 104 ml @ 208 mls/hr Q8H IV 12/22/16 17:00 12/26/16 16:00 Citalopram Hydrobromide 20 mg 20 mg DAILY PO 12/24/16 09:00 12/26/16 09:34 Sodium Bicarbonate/ Sodium Chloride (Sodium Bicarbonate 8.4% Inj/1/2 NS 1000 ml Inj) 1,075 ml @ 75 mls/hr [id number] IV 12/24/16 08:00 12/26/16 02:02 Diphenhydramine HCl 25 mg 25 mg UNSCH PRN PO GIVE 30 MIN PRIOR TO BLOOD 12/26/16 07:00 12/28/16 06:59 12/26/16 07:02 Ampicillin Sodium/ Sulbactam Sodium 1500 mg/Sodium Chloride 100 ml @ 200 mls/hr Q6H IV 12/26/16 15:00 12/26/16 20:23 Argatroban/Sodium Chloride (Novastan Inj/NS 250 ml Inj) 250 ml @ 0 mls/hr TITRATE IV 12/26/16 16:00 12/26/16 18:14 Objective Remarks GENERAL: acuetly il SKIN: Warm and dry. NECK: Supple, trachea midline. No JVD or lymphadenopathy. LYMPHATIC: No adenopathy. CARDIOVASCULAR: Regular rate and rhythm without murmurs. RESPIRATORY: Breath sounds equal bilaterally. No accessory muscle use. GASTROINTESTINAL: Abdomen soft, distended. due to obesity EXTREMITIES: b/l LE edma...RL> LE. chronic venous stasis. cellulitic changes Assessment/Plan Problem List: (1) Sepsis Status: Acute (2) Diabetic foot ulcer Status: Chronic (3) Chronic kidney disease Status: Acute (4) Acute renal failure superimposed on stage 3 chronic kidney disease Status: Acute (5) Cellulitis Status: Acute (6) Thrombocytopenia Status: Acute (7) HIT (heparin-induced thrombocytopenia) Status: Acute (8) Anemia Status: Chronic Assessment 56-year-old male with multiple medical problems including diabetes, type 2, chronic left foot ulcer, depression, who presents to the emergency department with lethargy, left foot pain. He is currently undergoing evaluation for left foot infection/cellulitis. 1. Acute thrombocytopenia. - HIT positive. Start argatroban - DARIEN pending - No evidence of microangiopathy. DIC panel negative 2. Acute anemia due to multiple factors including sepsis, chronic leg wound, diabetes, etc. No evidence of hemolysis. indirect bili normal. haptoglobin not low. Direct mathew negative - check daily cbc 3. Acute elevation of creatinine. He has chronic CKD. 4. Sepsis/cellulitis RLE --on abx Discussed with RN Problem Qualifiers (1) Sepsis: Qualified Code: A41.9 - Sepsis, due to unspecified organism (2) Diabetic foot ulcer: Qualified Code: E11.621 - Diabetic ulcer of toe of left foot associated with type 2 diabetes mellitus, unspecified ulcer stage (3) Chronic kidney disease: Qualified Code: N18.9 - Chronic kidney disease, unspecified CKD stage (4) Acute renal failure superimposed on stage 3 chronic kidney disease: Qualified Code: N17.9 - Acute renal failure superimposed on stage 3 chronic kidney disease, unspecified acute renal failure type (5) Anemia: Qualified Code: D64.9 - Anemia, unspecified type Nick Bañuelos MD December 26, 2016 23:29
[2016-12-26 23:54] LABS: UFH SEROTONIN RELEASE RESULT NEGATIVE (NEGATIVE)
[2016-12-27] VITALS (12 sets, daily range): BP systolic 132–154; BP diastolic 62–90; PULSE 66–84; RESP 24–27; TEMP 98.7–99.7; O2SAT 94–99
[2016-12-27] MEDS: CLINDAMYCIN INJ 600 MG in SODIUM CHLORIDE 0.9% INJ 100 ML IV SCH ×3 (00:04→16:51)
[2016-12-27] MEDS: AMPICILLIN-SULBACTAM INJ 1,500 MG in SODIUM CHLORIDE 0.9% INJ 100 ML IV SCH ×4 (03:33→21:16)
[2016-12-27] MEDS: CHLORHEXIDINE GLUCONATE 2 % 1 PACK (2 CLOTHS) TOP SCH (04:00)
[2016-12-27 05:22] LABS: APTT (PATIENT) 78.3 SEC (24.3-30.1)
[2016-12-27] MEDS: SODIUM BICARBONATE 8.4% INJ 75 MEQ in SODIUM CHLOR 0.45% 1000 ML INJ 1,000 ML IV SCH (05:26)
[2016-12-27 05:36] LABS: POTASSIUM 4.2 MEQ/L (3.5-5.1)
[2016-12-27] MEDS: INSULIN ASPART SUPPLEMENTAL SCALE SQ SCH ×4 (06:10→21:00)
[2016-12-27] MEDS: SODIUM CHLORIDE 0.9% FLUSH 10 ML FLUSH IV FLUSH SCH ×2 (07:42→21:15)
[2016-12-27 07:56] LABS: AUTOMATED NEUTROPHIL # 6.7 TH/MM3 (1.8-7.7); BASOPHIL % 0.3 % (0.0-2.0); EOSINOPHIL # 0.1 TH/MM3 (0-0.4); EOSINOPHIL % 1.3 % (0.0-4.0); HEMATOCRIT 25.8 % (39.0-51.0); LYMPH % 11.6 % (9.0-44.0); MEAN CELL VOLUME 93.2 FL (80.0-100.0); MEAN CORPUSCULAR HEMOGLOBIN 31.5 PG (27.0-34.0); MEAN CORPUSCULAR HGB CONC 33.8 % (32.0-36.0); MONO % 11.4 % (0.0-8.0); NEUT % 75.4 % (16.0-70.0); PLATELET COUNT 85 TH/MM3 (150-450); RED BLOOD COUNT 2.76 MIL/MM3 (4.50-5.90); RED CELL DISTRIBUTION WIDTH 17.3 % (11.6-17.2); WHITE BLOOD COUNT 8.9 TH/MM3 (4.0-11.0)
[2016-12-27 07:58] LABS: HEMO FLAGS AUTO DIFF
[2016-12-27] MEDS: VASOPRESSIN INJ 40 UNITS in DEXTROSE 5% IN WATER 100ML INJ 98 ML IV SCH ×2 (08:18)
[2016-12-27 08:39] LABS: PLATELET ESTIMATE SMEAR LOW (NORMAL); PLATELET MORPHOLOGY NORMAL (NORMAL); SCAN/DIFF AUTO DIFF CONFIRMED
[2016-12-27] MEDS: ARIPiprazole 5 MG TAB PO SCH (09:00)
[2016-12-27] MEDS: FAMOTIDINE 20 MG/2 ML VIAL IV PUSH SCH ×2 (09:40→21:15)
[2016-12-27] MEDS: CITALOPRAM HYDROBROMIDE 20 MG TAB PO SCH (09:41)
--- NOTE | 2016-12-27 10:35 | HHI.FPPN ---
Subjective Remarks Mr Botello has decided to do surgery as he "feels he has no choice" with his infection. He wanted more information about what could happen after surgery and about prosthesis. He is not sleeping well and is taking his medicines for mood. He spoke to the hospital centrifugal supervisor yesterday and has been wanting to have more information from PT and his Drs. He has some pain in his left leg but also has some numbness. Objective Vitals Vital Signs Date Time Temp Pulse Resp B/P Pulse Ox O2 Delivery O2 Flow Rate FiO2 12/27/16 10:00 71 12/27/16 08:00 68 12/27/16 08:00 99.3 68 26 149/90 96 12/27/16 07:00 96 Room Air 12/27/16 06:00 66 12/27/16 05:26 15 12/27/16 04:00 69 12/27/16 04:00 98.7 69 25 148/72 96 12/27/16 02:00 78 12/27/16 00:00 98.9 75 26 132/62 94 12/27/16 00:00 75 12/26/16 22:00 76 12/26/16 20:00 99.0 76 25 146/63 94 12/26/16 20:00 73 12/26/16 19:00 95 Room Air 12/26/16 18:00 69 12/26/16 16:00 99.4 72 19 145/73 100 12/26/16 16:00 71 12/26/16 14:00 68 12/26/16 12:00 67 12/26/16 12:00 97.8 67 19 132/65 99 I/O 12/26/16 12/26/16 12/26/16 12/27/16 12/27/16 12/27/16 07:00 15:00 23:00 07:00 15:00 23:00 Intake Total 1322 ml 2374 ml 1389 ml 1407 ml Output Total 801 ml 800 ml 1001 ml 601 ml Balance 521 ml 1574 ml 388 ml 806 ml Intake Oral 720 ml 1440 ml 400 ml 400 ml IV Total 602 ml 684 ml 989 ml 1007 ml Packed Cells 250 ml Output Urine Total 800 ml 800 ml 1000 ml 600 ml Stool Total 1 ml 1 ml 1 ml # Bowel Movements 0 Result Diagram: 12/27/16 0737 12/27/16 0417 Objective Remarks GENERAL: This is a well-nourished, well-developed patient, with some apparent depressed affect SKIN: Warm left lower extremity, venostasis changes of both lower extremities, worse on left with cellulitic changes and pitting edema to knee. small papules lower leg HEAD: Atraumatic. Normocephalic. CARDIOVASCULAR: Tachycardic, regular rhythm. RESPIRATORY: Clear to auscultation. Breath sounds equal bilaterally. No wheezes , rales, or rhonchi. GASTROINTESTINAL: Abdomen soft, non-tender, nondistended. No hepato-splenomegaly , or palpable masses. No guarding. MUSCULOSKELETAL: Status post surgical procedure on the left. Currently wrapped with Christophe bandage per podiatry. Able to move toes on left. Sensation intact although diminished. NEUROLOGICAL: Awake and alert. Cranial nerves II through XII intact. Sensation diminished in left foot compared to the right, some sensation present in distal left lower extremity. Unable to locate which toe is being touched on the left. A/P Assessment and Plan 56-year-old male with a past medical history of complicated type 2 diabetes presents septic with diabetic foot wound on the left. Podiatry, infectious disease, critical care consult. Plan as below. Discharge Planning Pending clinical improvement and specialty recommendations. Case management consulted for discharge needs. Physical therapy recommends PT at rehabilitation or home health care. Can determine better when he is nearer D/C Problem List: (1) Diabetic foot ulcer Status: Chronic Plan: Podiatry consulted Infectious disease consult Physical therapy consult. Orthopedic surgery consult per podiatry on 12/25 for possible left BKA -12/23: Status post left foot ankle incision drainage debridement partial resection of the 5th metatarsal head. -Intraoperative findings show severe necrosis down to periosteum of the midfoot , abscess severe. -Podiatry to see how the patient does over the next few days before trying a partial resection. However, if the infection continues to cause further necrosis, his extremity may be nonviable and he may require a below-knee indication. -12/25: Multiple specialists including podiatry, orthopedic surgery are recommending amputation. Antibiotics per ID: Unasyn IV every 6 hours (started 12/26), clindamycin IV every 8 hours (started 12/22) was on Zosyn Wound culture: Staph aureus, strep, mixed anaerobes, gram-negative gena Blood Cultures positive as listed under sepsis Bone pathology pending (2) Sepsis Status: Acute Plan: Infectious disease consult Vitals currently stable. Sources of sepsis is left foot wound. See antibiotic management under diabetic foot wound Blood cultures show gram-negative gena and gram-positive cocci 4. (3) HIT (heparin-induced thrombocytopenia) Status: Acute Plan: Hematology consult Serotonin release assay ordered Heparin discontinued He is on argatroban unsure what he will need from Hematology when he has his upcoming surgery. He is low on his platelets (4) Acute renal failure superimposed on stage 3 chronic kidney disease Status: Acute Plan: Likely prerenal in origin, improving Nephrology consult for persistent TAYLOR IV fluids as below (5) Anemia Status: Chronic Plan: Hematology consult Status post 2 units packed red blood cells on 12/22. Status post 2 units packed red blood cells on 12/25. Continue to monitor; transfuse when less than 7 Hemoccult ordered Vitamin B12, B1, folate, soluble transferrin receptor pending (6) Diabetes Status: Acute Plan: -Hemoglobin A1c on 12/11 was 6.9 Sliding scale insulin while in hospital. Patient has had diarrhea on metformin, likely will need to be discontinued as an outpatient and put on glipizide (7) Social issues Status: Acute Plan: Patient lives with his 90-year-old aunt who has dementia and is unable to take care of the patient on discharge. Case management consulted to assist with disposition. (8) Anxiety and depression Status: Acute Plan: -Continue home Abilify 5 mg by mouth daily and Celexa 10 mg by mouth daily -Psychiatry consulted: Diagnosed with dysthymia; he has appropriate follow-up with psychiatry services in the community -he has seen [employer] and talks with Dr Barahona daily (9) FEN/DVT PPX/GI PPX Status: Acute Plan: Fluids: Per critical care, Half normal saline with bicarbonate 75 miles per hour, can consider stopping bicarb as he is better overall with his sepsis Electrolytes: Will monitor and replace as needed Nutrition: Diabetic diet DVT Prophylaxis: Argatroban per hematology recs. Heparin contraindicated GI Prophylaxis: Famotidine 10 mg IV every 12 hours Problem Qualifiers (1) Diabetic foot ulcer: Qualified Code: E11.621 - Diabetic ulcer of toe of left foot associated with type 2 diabetes mellitus, unspecified ulcer stage (2) Sepsis: Qualified Code: A41.9 - Sepsis, due to unspecified organism (3) Acute renal failure superimposed on stage 3 chronic kidney disease: Qualified Code: N17.9 - Acute renal failure superimposed on stage 3 chronic kidney disease, unspecified acute renal failure type (4) Anemia: Qualified Code: D64.9 - Anemia, unspecified type (5) Diabetes: Qualified Code: E11.42 - Type 2 diabetes mellitus with diabetic polyneuropathy , without long-term current use of insulin Brigid Lenz MD December 27, 2016 10:35 Qualified Code: E11.42 - Type 2 diabetes mellitus with diabetic polyneuropathy , without long-term current use of insulin Brigid Lenz MD December 27, 2016 10:35
--- NOTE | 2016-12-27 10:57 | HHI.NPPN ---
Subjective Additional Remarks Patient with foot infection Review of Systems General Constitutional: Fatigue Musculoskeletal MS: Pain/Stiffness Objective Data Data 12/26/16 12/27/16 19:00 07:00 Intake Total 2374 ml 2796 ml Output Total 800 ml 1602 ml Balance 1574 ml 1194 ml Intake Oral 1440 ml 800 ml IV Total 684 ml 1996 ml Packed Cells 250 ml Output Urine Total 800 ml 1600 ml Stool Total 2 ml # Bowel Movements 0 Vital Signs Date Time Temp Pulse Resp B/P Pulse Ox O2 Delivery O2 Flow Rate FiO2 12/27/16 10:00 71 12/27/16 08:00 68 12/27/16 08:00 99.3 68 26 149/90 96 12/27/16 07:00 96 Room Air 12/27/16 06:00 66 12/27/16 05:26 15 12/27/16 04:00 69 12/27/16 04:00 98.7 69 25 148/72 96 12/27/16 02:00 78 12/27/16 00:00 98.9 75 26 132/62 94 12/27/16 00:00 75 12/26/16 22:00 76 12/26/16 20:00 99.0 76 25 146/63 94 12/26/16 20:00 73 12/26/16 19:00 95 Room Air 12/26/16 18:00 69 12/26/16 16:00 99.4 72 19 145/73 100 12/26/16 16:00 71 12/26/16 14:00 68 12/26/16 12:00 67 12/26/16 12:00 97.8 67 19 132/65 99 -: 12/27/16 0737 12/27/16 0417 Physical Exam General Appearance: Well Developed Neck Neck Exam: Neck Supple Pulmonary Resp Exam: Clear Bilaterally, Breath Sounds Equal Cardiology CV Exam: Regular, Normal Sinus Rhythm Gastrointestinal/Abdomen GI Exam: Soft, Non-Tender, Bowel Sounds Present Extremeties Extremities Exam: Moderate Edema Extremeties Remarks "Wrapped in dressing Neurologic Neuro Exam: Alert, Awake Assessment/Plan Problem List: (1) Acute renal failure superimposed on stage 3 chronic kidney disease Plan: Patient has a kidney ultrasound which was unremarkable Creatinine improved with treatment of infection and hydration Sepsis as the source of kidney dysfunction on IVF 1/2 NS with NaHCO3 75 meq at 75 cc/hr It is being closely monitored there is a possibility of amputation (2) Diabetic foot ulcer Plan: Patient is being followed by Dr. Ramirez (3) Cellulitis Plan: On clindamycin and Zosyn (4) Thrombocytopenia Plan: History of HIT hematology is following Argatroban treatment (5) HIT (heparin-induced thrombocytopenia) Plan: HIT positive (6) Osteomyelitis of left foot Plan: possible amputation if he agrees Problem Qualifiers (1) Acute renal failure superimposed on stage 3 chronic kidney disease: Qualified Code: N17.9 - Acute renal failure superimposed on stage 3 chronic kidney disease, unspecified acute renal failure type (2) Diabetic foot ulcer: Qualified Code: E11.621 - Diabetic ulcer of toe of left foot associated with type 2 diabetes mellitus, unspecified ulcer stage (3) Osteomyelitis of left foot: Qualified Code: M86.472 - Chronic osteomyelitis of left foot with draining sinus Shelley Cotto MD December 27, 2016 10:57 Shelley Cotto MD December 27, 2016 10:57
[2016-12-27 11:39] LABS: APTT (PATIENT) 44.1 SEC (24.3-30.1)
[2016-12-27 12:56] LABS: HEPATITIS B SURFACE ANTIBODY 2.5 mIU/mL
[2016-12-27] MEDS: ARGATROBAN 250 MG in NS 250 ML IV SCH (13:53)
--- NOTE | 2016-12-27 14:52 | HHI.IDPN ---
Note Infectious Disease Note Patient without complaints. Denies chills or nausea. Still appears fatigued. Low grade fever. RN reports he has not made up his mind about surgery. Blood culture has staph aureus and Pasteurella. Foot culture has mixed organisms including anaerobes and staph aureus. The patient presented with weakness and diarrhea. PAST MEDICAL HISTORY: 1. Diabetes mellitus. 2. Hypertension. 3. Depression. 4. Anxiety. 5. Chronic left foot ulcer. 6. Fifth toe amputation in 2008. ALLERGIES: NO KNOWN DRUG ALLERGIES. ANTIBIOTICS: 1. UNASYN. 2. Clindamycin. OBJECTIVE: Vital Signs Date Time Temp Pulse Resp B/P Pulse Ox O2 Delivery O2 Flow Rate FiO2 12/27/16 14:00 72 12/27/16 12:00 68 12/27/16 12:00 99.7 68 27 153/71 96 12/27/16 10:00 71 12/27/16 08:00 68 12/27/16 08:00 99.3 68 26 149/90 96 12/27/16 07:00 96 Room Air 12/27/16 06:00 66 12/27/16 05:26 15 12/27/16 04:00 69 12/27/16 04:00 98.7 69 25 148/72 96 12/27/16 02:00 78 12/27/16 00:00 98.9 75 26 132/62 94 12/27/16 00:00 75 12/26/16 22:00 76 12/26/16 20:00 99.0 76 25 146/63 94 12/26/16 20:00 73 12/26/16 19:00 95 Room Air 12/26/16 18:00 69 12/26/16 16:00 99.4 72 19 145/73 100 12/26/16 16:00 71 12/26/16 12/26/16 12/27/16 15:00 23:00 07:00 Intake Total 2374 ml 1389 ml 1407 ml Output Total 800 ml 1001 ml 601 ml Balance 1574 ml 388 ml 806 ml Intake Oral 1440 ml 400 ml 400 ml IV Total 684 ml 989 ml 1007 ml Packed Cells 250 ml Output Urine Total 800 ml 1000 ml 600 ml Stool Total 1 ml 1 ml # Bowel Movements 0 Laboratory Tests Test 5/17/17 5/17/17 5/18/17 02:39 17:35 07:37 White Blood Count 9.9 TH/MM3 8.2 TH/MM3 8.9 TH/MM3 Red Blood Count 2.44 MIL/MM3 2.72 MIL/MM3 2.76 MIL/MM3 Hemoglobin 7.6 GM/DL 8.6 GM/DL 8.7 GM/DL Hematocrit 22.4 % 25.0 % 25.8 % Mean Corpuscular Volume 92.1 FL 91.7 FL 93.2 FL Mean Corpuscular Hemoglobin 31.0 PG 31.5 PG 31.5 PG Mean Corpuscular Hemoglobin 33.7 % 34.4 % 33.8 % Concent Red Cell Distribution Width 17.9 % 17.6 % 17.3 % Platelet Count 68 TH/MM3 70 TH/MM3 85 TH/MM3 Mean Platelet Volume 10.8 FL 10.9 FL 10.7 FL Neutrophils (%) (Auto) 74.8 % 76.4 % 75.4 % Lymphocytes (%) (Auto) 10.4 % 9.8 % 11.6 % Monocytes (%) (Auto) 13.7 % 12.5 % 11.4 % Eosinophils (%) (Auto) 0.7 % 1.1 % 1.3 % Basophils (%) (Auto) 0.4 % 0.2 % 0.3 % Neutrophils # (Auto) 7.4 TH/MM3 6.3 TH/MM3 6.7 TH/MM3 Lymphocytes # (Auto) 1.0 TH/MM3 0.8 TH/MM3 1.0 TH/MM3 Monocytes # (Auto) 1.3 TH/MM3 1.0 TH/MM3 1.0 TH/MM3 Eosinophils # (Auto) 0.1 TH/MM3 0.1 TH/MM3 0.1 TH/MM3 Basophils # (Auto) 0.0 TH/MM3 0.0 TH/MM3 0.0 TH/MM3 CBC Comment AUTO DIFF AUTO DIFF AUTO DIFF Differential Comment AUTO DIFF AUTO DIFF AUTO DIFF CONFIRMED CONFIRMED CONFIRMED Platelet Estimate LOW LOW LOW Platelet Morphology Comment ENLARGED NORMAL NORMAL Ovalocytes 1+ 1+ Blood Smear Pathologist Review Haptoglobin 357 MG/DL Acanthocytes OCC Laboratory Tests Test 12/26/16 12/26/16 12/27/16 02:39 17:35 04:17 Sodium Level 137 MEQ/L 140 MEQ/L Potassium Level 3.7 MEQ/L 4.2 MEQ/L Chloride Level 109 MEQ/L 107 MEQ/L Carbon Dioxide Level 18.9 MEQ/L 21.0 MEQ/L Anion Gap 9 MEQ/L 12 MEQ/L Blood Urea Nitrogen 56 MG/DL 44 MG/DL Creatinine 2.13 MG/DL 1.96 MG/DL Estimat Glomerular Filtration 32 ML/MIN 35 ML/MIN Rate Random Glucose 116 MG/DL 157 MG/DL Calcium Level 7.8 MG/DL 7.7 MG/DL Total Bilirubin 2.5 MG/DL Direct Bilirubin 1.9 MG/DL Indirect Bilirubin 0.6 MG/DL Aspartate Amino Transf 25 U/L (AST/SGOT) Alanine Aminotransferase 13 U/L (ALT/SGPT) Alkaline Phosphatase 87 U/L Lactate Dehydrogenase 176 U/L Total Protein 6.1 GM/DL Albumin 1.7 GM/DL Vitamin B12 Level GREATER THAN 2000 PG/ML Folate 10.0 NG/ML Microbiology Date/Time Procedure Status Source Growth 12/25/16 21:20 Aerobic Blood Culture - Preliminary Resulted Blood Peripheral NO GROWTH IN 2 DAYS 12/25/16 21:20 Anaerobic Blood Culture - Preliminary Resulted Blood Peripheral NO GROWTH IN 2 DAYS 12/25/16 21:26 Aerobic Blood Culture - Preliminary Resulted Blood Peripheral NO GROWTH IN 2 DAYS 12/25/16 21:26 Anaerobic Blood Culture - Preliminary Resulted Blood Peripheral NO GROWTH IN 2 DAYS Microbiology Date/Time Procedure Status Source Growth 12/25/16 21:20 Aerobic Blood Culture - Preliminary Resulted Blood Peripheral NO GROWTH IN 1 DAY 12/25/16 21:20 Anaerobic Blood Culture - Preliminary Resulted Blood Peripheral NO GROWTH IN 1 DAY 12/25/16 21:26 Aerobic Blood Culture - Preliminary Resulted Blood Peripheral NO GROWTH IN 1 DAY 12/25/16 21:26 Anaerobic Blood Culture - Preliminary Resulted Blood Peripheral NO GROWTH IN 1 DAY Microbiology Date/Time Procedure Status Source Growth 12/23/16 04:20 Cancelled Sputum Expectorated Sputum 12/23/16 08:20 Gram Stain - Final Complete Wound Foot 12/23/16 08:20 Wound Culture - Final Complete Staphylococcus Aureus Enterococcus Raffinosus Mixed Anaerobes 12/23/16 08:20 Acid Fast Stain - Final Resulted Wound Foot NO ACID FAST BACILLI SEEN 12/23/16 08:20 Mycobacterial Culture Resulted Wound Foot Pending 12/23/16 08:20 Fungal Smear - Final Resulted Wound Foot NO FUNGAL ELEMENTS SEEN. 12/23/16 08:20 Fungal Culture Resulted Wound Foot Pending 12/23/16 08:22 Acid Fast Stain - Final Resulted Wound Bone NO ACID FAST BACILLI SEEN 12/23/16 08:22 Mycobacterial Culture Resulted Wound Bone Pending 12/23/16 08:22 Fungal Smear - Final Resulted Wound Bone NO FUNGAL ELEMENTS SEEN. 12/23/16 08:22 Fungal Culture Resulted Wound Bone Pending 12/23/16 08:22 Gram Stain - Final Complete Wound Bone 12/23/16 08:22 Wound Culture - Final Complete Staphylococcus Aureus Enterococcus Raffinosus Mixed Anaerobes IMAGING: Renal Ultrasound 12/25/16 0000 Signed Impressions: Service Date/Time: Sunday, December 25, 2016 13:28 - CONCLUSION: 1. Unremarkable ultrasound examination of the kidneys. Hang Lin MD Foot X-Ray 12/23/16 0000 Signed Impressions: Service Date/Time: Friday, December 23, 2016 09:40 - CONCLUSION: Soft tissue swelling and post surgical changes. Laureano Grider MD Foot MRI 12/22/16 0000 Signed Impressions: Service Date/Time: Thursday, December 22, 2016 16:49 - CONCLUSION: 1. Diffuse marrow edema involving the remaining portion of the left 5th metatarsal with extensive overlying soft-tissue swelling. The findings raise the possibility of osteomyelitis of the 5th metatarsal and overlying cellulitis. Clinical correlation is recommended. 2. Questionable nondisplaced fractures involving the bases of the left 3rd and 4th metatarsals with some associated marrow edema. Shade Kee MD Chest X-Ray 12/21/[id number] Signed Impressions: Service Date/Time: Wednesday, December 21, 2016 22:20 - CONCLUSION: No acute disease. Paramjit Bae MD PHYSICAL EXAMINATION: GENERAL: No acute distress. HEENT: No icterus. Oropharynx without lesions. Moist mucosa. NECK: No adenopathy or swelling. LUNGS: Clear to auscultation. HEART: Regular S1-S2 without murmurs, rubs or gallops. ABDOMEN: Bowel sounds present, soft, obese, nontender. No masses palpable. EXTREMITIES: The left foot same open necrotic wound with tendon and bone exposed at the ankle and foot and dusky skin changes and foul odor. The left foot has 3 + edema. SKIN: Warm and moist. NEUROLOGIC: Nonfocal. PSYCHIATRIC: The patient is calm and cooperative. IMPRESSION: 1. Sepsis on admission based on patient with fever and elevated white blood cell count and infection at the left foot in a patient with necrotic gas forming organism and cellulitis. Staph and Pasteurella. 2. Cellulitis of the left foot. Marrow edema at the 5th metatarsal as well as the 3rd and 4th metatarsal suggesting osteo. 3. Diabetes mellitus. 4. Acute kidney disease. RECOMMENDATIONS: 1. Continue Unasyn. 2. Continue clindamycin. Avoid Vancomycin in this patient with acute kidney disease. 3. Monitor blood cultures. I do not think the wound will heal or can be resolved without surgery. Patient tells me he is ready to have the surgery. RN to notify surgical dressing maker. Manny Romano MD December 27, 2016 14:52
[2016-12-27 16:38] LABS: APTT (PATIENT) 69.3 SEC (24.3-30.1)
--- NOTE | 2016-12-27 23:14 | PD.ONC.PN ---
Subjective Subjective Remarks upset about requiring BKA-- says he has no choice argatroban GTT is on going. no bleeding no dyspnea bacteremic with staph and pasteurella d/w rn Objective Data Date Time Temp Pulse Resp B/P Pulse Ox O2 Delivery O2 Flow Rate FiO2 12/27/16 22:00 68 12/27/16 20:00 67 12/27/16 20:00 98.9 67 26 154/73 99 12/27/16 19:00 96 Room Air 12/27/16 18:00 84 12/27/16 16:00 68 12/27/16 16:00 99.0 68 24 154/74 95 12/27/16 14:00 72 12/27/16 12:00 68 12/27/16 12:00 99.7 68 27 153/71 96 12/27/16 10:00 71 12/27/16 08:00 68 12/27/16 08:00 99.3 68 26 149/90 96 12/27/16 07:00 96 Room Air 12/27/16 06:00 66 12/27/16 05:26 15 12/27/16 04:00 69 12/27/16 04:00 98.7 69 25 148/72 96 12/27/16 02:00 78 12/27/16 00:00 98.9 75 26 132/62 94 12/27/16 00:00 75 12/27/16 12/27/16 12/27/16 07:00 15:00 23:00 Intake Total 1407 ml 1188 ml 1137 ml Output Total 601 ml 1400 ml 901 ml Balance 806 ml -212 ml 236 ml Result Diagram: 12/27/16 0737 12/27/16 0417 Laboratory Results Laboratory Tests Test 12/27/16 12/27/16 12/27/16 12/27/16 04:17 07:37 11:00 15:41 Activated Partial 78.3 SEC 44.1 SEC 69.3 SEC Thromboplast Time Fibrinogen 589 mg/dL Sodium Level 140 MEQ/L Potassium Level 4.2 MEQ/L Chloride Level 107 MEQ/L Carbon Dioxide Level 21.0 MEQ/L Anion Gap 12 MEQ/L Blood Urea Nitrogen 44 MG/DL Creatinine 1.96 MG/DL Estimat Glomerular Filtration 35 ML/MIN Rate Random Glucose 157 MG/DL Calcium Level 7.7 MG/DL HIV (1&2) Antibody NEGATIVE White Blood Count 8.9 TH/MM3 Red Blood Count 2.76 MIL/MM3 Hemoglobin 8.7 GM/DL Hematocrit 25.8 % Mean Corpuscular Volume 93.2 FL Mean Corpuscular Hemoglobin 31.5 PG Mean Corpuscular Hemoglobin 33.8 % Concent Red Cell Distribution Width 17.3 % Platelet Count 85 TH/MM3 Mean Platelet Volume 10.7 FL Neutrophils (%) (Auto) 75.4 % Lymphocytes (%) (Auto) 11.6 % Monocytes (%) (Auto) 11.4 % Eosinophils (%) (Auto) 1.3 % Basophils (%) (Auto) 0.3 % Neutrophils # (Auto) 6.7 TH/MM3 Lymphocytes # (Auto) 1.0 TH/MM3 Monocytes # (Auto) 1.0 TH/MM3 Eosinophils # (Auto) 0.1 TH/MM3 Basophils # (Auto) 0.0 TH/MM3 CBC Comment AUTO DIFF Differential Comment AUTO DIFF CONFIRMED Platelet Estimate LOW Platelet Morphology Comment NORMAL Culture Results Microbiology Date/Time Procedure Status Source Growth 12/25/16 21:20 Aerobic Blood Culture - Preliminary Resulted Blood Peripheral NO GROWTH IN 2 DAYS 12/25/16 21:20 Anaerobic Blood Culture - Preliminary Resulted Blood Peripheral NO GROWTH IN 2 DAYS 12/25/16 21:26 Aerobic Blood Culture - Preliminary Resulted Blood Peripheral NO GROWTH IN 2 DAYS 12/25/16 21:26 Anaerobic Blood Culture - Preliminary Resulted Blood Peripheral NO GROWTH IN 2 DAYS Administered Medications Medications (Trade) Dose Ordered Sig/Jeffy Route PRN Reason Start Time Stop Time Status Last Admin Dose Admin Aripiprazole (Abilify) 5 mg DAILY PO 12/22/16 09:00 12/27/16 09:00 Sodium Chloride (NS Flush) 2 ml BID IV FLUSH 12/22/16 09:00 12/27/16 21:15 Famotidine (Pepcid Inj) 10 mg Q12HR IV PUSH 12/22/16 09:00 12/27/16 21:15 Miscellaneous Information 1 [id number] XX 12/22/16 01:45 12/22/16 01:45 Chlorhexidine Gluconate (Chlorhexidine 2% Cloth) Taper DAILY@04 TOP 12/22/16 04:00 12/18/17 03:59 12/27/16 04:00 Acetaminophen 650 mg 650 mg Q6H PRN PO FEVER 12/22/16 12:45 12/26/16 23:09 Clindamycin Phosphate/Sodium Chloride (Cleocin Inj/NS Inj) 104 ml @ 208 mls/hr Q8H IV 12/22/16 17:00 12/27/16 16:51 Citalopram Hydrobromide 20 mg 20 mg DAILY PO 12/24/16 09:00 12/27/16 09:41 Sodium Bicarbonate/ Sodium Chloride (Sodium Bicarbonate 8.4% Inj/1/2 NS 1000 ml Inj) 1,075 ml @ 75 mls/hr [id number] IV 12/24/16 08:00 12/27/16 05:26 Diphenhydramine HCl 25 mg 25 mg UNSCH PRN PO GIVE 30 MIN PRIOR TO BLOOD 12/26/16 07:00 12/28/16 06:59 12/26/16 07:02 Ampicillin Sodium/ Sulbactam Sodium 1500 mg/Sodium Chloride 100 ml @ 200 mls/hr Q6H IV 12/26/16 15:00 12/27/16 21:16 Argatroban/Sodium Chloride (Novastan Inj/NS 250 ml Inj) 250 ml @ 0 mls/hr TITRATE IV 12/26/16 16:00 12/27/16 13:53 Objective Remarks GENERAL: nad SKIN: Warm and dry. NECK: Supple, trachea midline. No JVD or lymphadenopathy. LYMPHATIC: No adenopathy. CARDIOVASCULAR: Regular rate and rhythm without murmurs. RESPIRATORY: Breath sounds equal bilaterally. No accessory muscle use. GASTROINTESTINAL: Abdomen soft, non-tender, EXTREMITIES: edematous. cellulitis left le Assessment/Plan Problem List: (1) Sepsis Status: Acute (2) Diabetic foot ulcer Status: Chronic (3) Chronic kidney disease Status: Acute (4) Acute renal failure superimposed on stage 3 chronic kidney disease Status: Acute (5) Cellulitis Status: Acute (6) Thrombocytopenia Status: Acute (7) HIT (heparin-induced thrombocytopenia) Status: Acute (8) Anemia Status: Chronic Assessment 56-year-old male with multiple medical problems including diabetes, type 2, chronic left foot ulcer, depression, who presents to the emergency department with lethargy, left foot pain. He is currently undergoing evaluation for left foot infection/cellulitis. 1. Acute thrombocytopenia due to sepsis --PLT count trending up - HIT positive. DARIEN negative. Likely false positive - D/C argatroban - No evidence of microangiopathy. DIC panel negative 2. Acute anemia due to multiple factors including sepsis, chronic leg wound, diabetes, etc. No evidence of hemolysis. indirect bili normal. haptoglobin not low. Direct mathew negative - check daily cbc 3. Acute on chronic CKD. 4. Sepsis/cellulitis RLE --on abx \ Problem Qualifiers (1) Sepsis: Qualified Code: A41.9 - Sepsis, due to unspecified organism (2) Diabetic foot ulcer: Qualified Code: E11.621 - Diabetic ulcer of toe of left foot associated with type 2 diabetes mellitus, unspecified ulcer stage (3) Chronic kidney disease: Qualified Code: N18.9 - Chronic kidney disease, unspecified CKD stage (4) Acute renal failure superimposed on stage 3 chronic kidney disease: Qualified Code: N17.9 - Acute renal failure superimposed on stage 3 chronic kidney disease, unspecified acute renal failure type (5) Anemia: Qualified Code: D64.9 - Anemia, unspecified type Nick Bañuelos MD December 27, 2016 23:14
[2016-12-28] VITALS (9 sets, daily range): BP systolic 127–168; BP diastolic 52–80; PULSE 68–78; RESP 12–28; TEMP 98.9–100.9; O2SAT 94–98
[2016-12-28] MEDS ORDERED: FONDAPARINUX SODIUM 2.5 MG/0.5 ML SYRINGE SQ SCH
[2016-12-28] MEDS: CLINDAMYCIN INJ 600 MG in SODIUM CHLORIDE 0.9% INJ 100 ML IV SCH ×2 (00:31→09:06)
[2016-12-28] MEDS: AMPICILLIN-SULBACTAM INJ 1,500 MG in SODIUM CHLORIDE 0.9% INJ 100 ML IV SCH ×4 (02:05→20:28)
[2016-12-28] MEDS: CHLORHEXIDINE GLUCONATE 2 % 1 PACK (2 CLOTHS) TOP SCH (04:00)
[2016-12-28] MEDS: SODIUM BICARBONATE 8.4% INJ 75 MEQ in SODIUM CHLOR 0.45% 1000 ML INJ 1,000 ML IV SCH ×2 (04:49→13:28)
[2016-12-28 05:28] LABS: INTERNATIONAL NORMALIZED RATIO 5.8 RATIO; PROTHROMBIN TIME - PATIENT 69.6 SEC (9.8-11.6)
[2016-12-28 05:40] LABS: ALKALINE PHOSPHATASE 101 U/L (45-117); ALT (GPT) 12 U/L (12-78); ANION GAP 9 MEQ/L (5-15); AST (GOT) 27 U/L (15-37); BICARBONATE 23.3 MEQ/L (21.0-32.0); BLOOD UREA NITROGEN 31 MG/DL (7-18); CHLORIDE 106 MEQ/L (98-107); GLOMERULAR FILTRATION RATE 48 ML/MIN (>89); POTASSIUM 4.6 MEQ/L (3.5-5.1); SODIUM (NA) 138 MEQ/L (136-145); TOTAL BILIRUBIN ADULT 1.4 MG/DL (0.2-1.0)
[2016-12-28] MEDS: INSULIN ASPART SUPPLEMENTAL SCALE SQ SCH ×4 (06:31→20:33)
[2016-12-28] MEDS: VASOPRESSIN INJ 40 UNITS in DEXTROSE 5% IN WATER 100ML INJ 98 ML IV SCH ×2 (06:32)
[2016-12-28 06:43] LABS: HEMATOCRIT 29.1 % (39.0-51.0); MEAN CELL VOLUME 92.7 FL (80.0-100.0); MEAN CORPUSCULAR HEMOGLOBIN 30.8 PG (27.0-34.0); MEAN CORPUSCULAR HGB CONC 33.2 % (32.0-36.0); PLATELET COUNT 91 TH/MM3 (150-450); RED BLOOD COUNT 3.14 MIL/MM3 (4.50-5.90); RED CELL DISTRIBUTION WIDTH 17.3 % (11.6-17.2); WHITE BLOOD COUNT 8.1 TH/MM3 (4.0-11.0)
--- NOTE | 2016-12-28 08:02 | PD.ORT.PN ---
Subjective Subjective Remarks Patient sitting upright in bed, awake and alert and answering questions appropriately. He complaints of minimal left lower extremity discomfort and admits 'I am beginning to see changes and improvement in my left foot.' At this time he is not willing to proceed forward with Anthony ROBERTS. No other complaints. Objective Vitals Vital Signs Date Time Temp Pulse Resp B/P Pulse Ox O2 Delivery O2 Flow Rate FiO2 12/28/16 06:00 70 12/28/16 04:00 98.9 70 21 155/77 97 12/28/16 00:00 99.0 68 25 157/73 96 12/27/16 22:00 68 12/27/16 20:00 67 12/27/16 20:00 98.9 67 26 154/73 99 12/27/16 19:00 96 Room Air 12/27/16 18:00 84 12/27/16 16:00 68 12/27/16 16:00 99.0 68 24 154/74 95 12/27/16 14:00 72 12/27/16 12:00 68 12/27/16 12:00 99.7 68 27 153/71 96 12/27/16 10:00 71 12/27/16 08:00 68 12/27/16 08:00 99.3 68 26 149/90 96 I/O 12/27/16 12/27/16 12/27/16 12/28/16 12/28/16 12/28/16 07:00 15:00 23:00 07:00 15:00 23:00 Intake Total 1407 ml 1188 ml 1137 ml 725 ml Output Total 601 ml 1400 ml 901 ml 851 ml Balance 806 ml -212 ml 236 ml -126 ml Intake Oral 400 ml 480 ml 600 ml IV Total 1007 ml 708 ml 537 ml 725 ml Output Urine Total 600 ml 1400 ml 900 ml 850 ml Stool Total 1 ml 1 ml 1 ml Result Diagram: 12/28/16 0617 12/28/16 0427 Other Results Laboratory Tests Test 12/28/16 04:27 Prothrombin Time 69.6 SEC (9.8-11.6) Prothromb Time International 5.8 RATIO Ratio Imaging Last Impressions Renal Ultrasound 12/25/16 0000 Signed Impressions: Service Date/Time: Sunday, December 25, 2016 13:28 - CONCLUSION: 1. Unremarkable ultrasound examination of the kidneys. Hang Lin MD Foot X-Ray 12/23/16 0000 Signed Impressions: Service Date/Time: Friday, December 23, 2016 09:40 - CONCLUSION: Soft tissue swelling and post surgical changes. Laureano Grider MD Foot MRI 12/22/16 0000 Signed Impressions: Service Date/Time: Thursday, December 22, 2016 16:49 - CONCLUSION: 1. Diffuse marrow edema involving the remaining portion of the left 5th metatarsal with extensive overlying soft-tissue swelling. The findings raise the possibility of osteomyelitis of the 5th metatarsal and overlying cellulitis. Clinical correlation is recommended. 2. Questionable nondisplaced fractures involving the bases of the left 3rd and 4th metatarsals with some associated marrow edema. Shade Kee MD Chest X-Ray 12/21/162149 Signed Impressions: Service Date/Time: Wednesday, December 21, 2016 22:20 - CONCLUSION: No acute disease. Paramjit Bae MD Objective Remarks LLE: The examination is limited as the patient has a dressing in place. A description of the wound was reviewed in the medical record. He has exposed bone extending from the toe to the ankle. There is drainage. The patient has a restricted active range of motion of the ankle which is minimally tender. Decreased sensation of the toes. There is moderate edema of the calf with discoloration anteriorly and small blisters present with dried drainage on the bed sheet. The calf is soft to palpation with mild discomfort. Assessment & Plan Problem List: (1) Sepsis (2) Anaerobic bacterial infection (3) Cellulitis (4) Osteomyelitis of left foot (5) Diabetes (6) Hyperlipidemia Assessment and Plan A lengthy discussion was had with the patient, explaining the benefits and risks to surgery once more. The options for treatment were discussed. Review of the record reveals a consensus with regards to the best option for below- knee amputation and this was discussed once again with the patient. At the present time, however, he is not consenting to it once more. He understands orthopedics will not be involved in patient's care at this time. He will therefore discuss this further with his treating physicians and when he makes a decision to proceed forward with surgery, Dr Moctezuma will do so. There is concern with regards to the soft tissue at the level of the below-knee amputation and the possibility of more than 1 procedure to get a healed stump was discussed. All his questions were answered to his satisfaction. Please reconsult as necessary. Amaris Vidal December 28, 2016 08:02
[2016-12-28] MEDS: SODIUM CHLORIDE 0.9% FLUSH 10 ML FLUSH IV FLUSH SCH ×2 (08:05→20:28)
[2016-12-28] MEDS: ARIPiprazole 5 MG TAB PO SCH (09:00)
--- NOTE | 2016-12-28 09:00 | HHI.FPPN ---
Subjective Remarks No acute events overnight. Afebrile, vitals are stable. Patient this AM is not wanting to proceed with L BKA as discussed with him by orthopedic surgery. Hgb stable at 9.7 today. Patient denies any fevers, chest pain, SOB. (Chacorta France MD R1) Objective Vitals Vital Signs Date Time Temp Pulse Resp B/P Pulse Ox O2 Delivery O2 Flow Rate FiO2 12/28/16 06:00 70 12/28/16 04:00 98.9 70 21 155/77 97 12/28/16 00:00 99.0 68 25 157/73 96 12/27/16 22:00 68 12/27/16 20:00 67 12/27/16 20:00 98.9 67 26 154/73 99 12/27/16 19:00 96 Room Air 12/27/16 18:00 84 12/27/16 16:00 68 12/27/16 16:00 99.0 68 24 154/74 95 12/27/16 14:00 72 12/27/16 12:00 68 12/27/16 12:00 99.7 68 27 153/71 96 12/27/16 10:00 71 I/O 12/27/16 12/27/16 12/27/16 12/28/16 12/28/16 12/28/16 07:00 15:00 23:00 07:00 15:00 23:00 Intake Total 1407 ml 1188 ml 1137 ml 725 ml Output Total 601 ml 1400 ml 901 ml 851 ml Balance 806 ml -212 ml 236 ml -126 ml Intake Oral 400 ml 480 ml 600 ml IV Total 1007 ml 708 ml 537 ml 725 ml Output Urine Total 600 ml 1400 ml 900 ml 850 ml Stool Total 1 ml 1 ml 1 ml (Chacorta France MD R1) Result Diagram: 12/28/16 0617 12/28/16 0427 Objective Remarks GENERAL: This is a well-nourished, well-developed patient, with some apparent depressed affect SKIN: Warm left lower extremity, venostasis changes of both lower extremities, worse on left with cellulitic changes and pitting edema to knee. small papules lower leg HEAD: Atraumatic. Normocephalic. CARDIOVASCULAR: RRR RESPIRATORY: Clear to auscultation. Breath sounds equal bilaterally. No wheezes , rales, or rhonchi. GASTROINTESTINAL: Abdomen soft, non-tender, nondistended. No hepato-splenomegaly , or palpable masses. No guarding. MUSCULOSKELETAL: Status post surgical procedure on the left. Currently wrapped with Christophe bandage per podiatry. Able to move toes on left. Sensation intact although diminished. Right foot is clear of any lesions. NEUROLOGICAL: Awake and alert. Cranial nerves II through XII intact. Sensation diminished in left foot compared to the right, some sensation present in distal left lower extremity. Unable to locate which toe is being touched on the left. (Chacorta France MD R1) A/P Assessment and Plan 56-year-old male with a past medical history of complicated type 2 diabetes presents septic with diabetic foot wound on the left. Podiatry, infectious disease, critical care, orthopedic surgery consult. Plan as below. Discharge Planning Pending clinical improvement and specialty recommendations. Case management consulted for discharge needs. Physical therapy recommends PT at rehabilitation or home health care. Per infectious disease standpoint, patient can receive IV antibiotics until 02/03 at a SNF if he continues to decline a L BKA (Chacorta France MD R1) Attending Attestation Patient seen and examined. Case reviewed and discussed with the resident team. Agree with plan of care as discussed with me and documented in the resident note. (Brigid Lenz MD) Problem List: (1) Diabetic foot ulcer Status: Chronic Plan: Podiatry consulted Infectious disease consult Physical therapy consult. Orthopedic surgery consult per podiatry on 12/25 for possible left BKA however patient does not desire this procedure at this time -12/23: Status post left foot ankle incision drainage debridement partial resection of the 5th metatarsal head. -Intraoperative findings show severe necrosis down to periosteum of the midfoot , abscess severe. -Podiatry to see how the patient does over the next few days before trying a partial resection. However, if the infection continues to cause further necrosis, his extremity may be nonviable and he may require a below-knee indication. -12/25: Multiple specialists including podiatry, orthopedic surgery are recommending amputation. Antibiotics per ID: Unasyn IV every 6 hours (started 12/26), clindamycin IV now discontinued (12/22-12/28), Zosyn also discontinued - Per ID, Unasyn IV to be continued until 02/03/2017 Wound culture: Staph aureus, strep, mixed anaerobes, gram-negative gena Blood Cultures positive as listed under sepsis Bone pathology left fifth metatarsal showing acute osteomyelitis (2) Sepsis Status: Resolved Plan: Infectious disease consult Vitals currently stable. Sources of sepsis is left foot wound. See antibiotic management under diabetic foot wound Blood cultures show gram-negative gena and gram-positive cocci 4. Most recent blood cultures from 12/25 are negative after 3 days (3) HIT (heparin-induced thrombocytopenia) Status: Resolved Plan: Hematology consult Serotonin release assay negative. HIT positive is likely a false positive result Heparin discontinued Argatroban discontinued per hematology Platelets uptrending Patient has been started on fondaparinux per hematology. (4) Acute renal failure superimposed on stage 3 chronic kidney disease Status: Acute Plan: Likely prerenal in origin, improving Nephrology consult for persistent TAYLOR IV fluids as below Cr improving (5) Anemia Status: Chronic Plan: Hematology consult Status post 2 units packed red blood cells on 12/22. Status post 2 units packed red blood cells on 12/25. Continue to monitor; transfuse when less than 7 Hemoccult ordered Vitamin B12, B1, folate, soluble transferrin receptor pending (6) Diabetes Status: Chronic Plan: -Hemoglobin A1c on 12/11 was 6.9 Sliding scale insulin while in hospital. Patient has had diarrhea on metformin, likely will need to be discontinued as an outpatient and put on glipizide (7) Social issues Status: Acute Plan: Patient lives with his 90-year-old aunt who has dementia and is unable to take care of the patient on discharge. Case management consulted to assist with disposition. (8) Anxiety and depression Status: Acute Plan: -Continue home Abilify 5 mg by mouth daily and Celexa 10 mg by mouth daily -Psychiatry consulted: Diagnosed with dysthymia; he has appropriate follow-up with psychiatry services in the community -he has seen [employer] and talks with Dr Barahona daily (9) FEN/DVT PPX/GI PPX Status: Acute Plan: Fluids: Per critical care, Half normal saline with bicarbonate 75 miles per hour, can consider stopping bicarb as he is better overall with his sepsis Electrolytes: Will monitor and replace as needed Nutrition: Diabetic diet DVT Prophylaxis: Fondaparinux per hematology GI Prophylaxis: Famotidine 10 mg IV every 12 hours (Chacorta France MD R1) Problem Qualifiers (1) Diabetic foot ulcer: Qualified Code: E11.621 - Diabetic ulcer of toe of left foot associated with type 2 diabetes mellitus, unspecified ulcer stage (2) Sepsis: Qualified Code: A41.9 - Sepsis, due to unspecified organism (3) Acute renal failure superimposed on stage 3 chronic kidney disease: Qualified Code: N17.9 - Acute renal failure superimposed on stage 3 chronic kidney disease, unspecified acute renal failure type (4) Anemia: Qualified Code: D64.9 - Anemia, unspecified type (5) Diabetes: Qualified Code: E11.42 - Type 2 diabetes mellitus with diabetic polyneuropathy , without long-term current use of insulin Chacorta France MD R1 December 28, 2016 09:00 Brigid Lenz MD December 31, 2016 12:22
[2016-12-28] MEDS: CITALOPRAM HYDROBROMIDE 20 MG TAB PO SCH (09:06)
[2016-12-28] MEDS: FONDAPARINUX SODIUM 2.5 MG/0.5 ML SYRINGE SQ SCH (09:06)
[2016-12-28] MEDS: FAMOTIDINE 20 MG/2 ML VIAL IV PUSH SCH ×2 (09:06→20:34)
--- NOTE | 2016-12-28 10:09 | HHI.NPPN ---
Subjective Additional Remarks Patient with foot infection Review of Systems General Constitutional: Fatigue Musculoskeletal MS: Pain/Stiffness Objective Data Data 12/27/16 12/28/16 19:00 07:00 Intake Total 1188 ml 1862 ml Output Total 1400 ml 1752 ml Balance -212 ml 110 ml Intake Oral 480 ml 600 ml IV Total 708 ml 1262 ml Output Urine Total 1400 ml 1750 ml Stool Total 2 ml Vital Signs Date Time Temp Pulse Resp B/P Pulse Ox O2 Delivery O2 Flow Rate FiO2 12/28/16 07:00 96 Room Air 12/28/16 06:00 70 12/28/16 04:00 98.9 70 21 155/77 97 12/28/16 00:00 99.0 68 25 157/73 96 12/27/16 22:00 68 12/27/16 20:00 67 12/27/16 20:00 98.9 67 26 154/73 99 12/27/16 19:00 96 Room Air 12/27/16 18:00 84 12/27/16 16:00 68 12/27/16 16:00 99.0 68 24 154/74 95 12/27/16 14:00 72 12/27/16 12:00 68 12/27/16 12:00 99.7 68 27 153/71 96 -: 12/28/16 0617 12/28/16 0427 Physical Exam General Appearance: Well Developed Neck Neck Exam: Neck Supple Pulmonary Resp Exam: Clear Bilaterally, Breath Sounds Equal Cardiology CV Exam: Regular, Normal Sinus Rhythm Gastrointestinal/Abdomen GI Exam: Soft, Non-Tender, Bowel Sounds Present Extremeties Extremities Exam: Moderate Edema Extremeties Remarks "Wrapped in dressing Neurologic Neuro Exam: Alert, Awake Assessment/Plan Problem List: (1) Acute renal failure superimposed on stage 3 chronic kidney disease Plan: Patient has a kidney ultrasound which was unremarkable Creatinine improved with treatment of infection and hydration Sepsis as the source of kidney dysfunction on IVF 1/ NS with NaHCO3 75 meq at 75 cc/hr It is being closely monitored there is a possibility of amputation Cr declined to 1.5 (2) Diabetic foot ulcer Plan: Patient is being followed by Dr. Ramirez (3) Cellulitis Plan: On clindamycin and Unasyn (4) Thrombocytopenia Plan: History of HIT hematology is following (5) HIT (heparin-induced thrombocytopenia) Plan: HIT positive Hematology dc Argatroban (6) Osteomyelitis of left foot Plan: possible amputation if he agrees Problem Qualifiers (1) Acute renal failure superimposed on stage 3 chronic kidney disease: Qualified Code: N17.9 - Acute renal failure superimposed on stage 3 chronic kidney disease, unspecified acute renal failure type (2) Diabetic foot ulcer: Qualified Code: E11.621 - Diabetic ulcer of toe of left foot associated with type 2 diabetes mellitus, unspecified ulcer stage (3) Osteomyelitis of left foot: Qualified Code: M86.472 - Chronic osteomyelitis of left foot with draining sinus Shelley Cotto MD December 28, 2016 10:09
[2016-12-28 13:08] LABS: BANDS 5 % (0-6); EOSINOPHILS 2 % (0-4); NEUTROPHIL # MANUAL DIFF 6.5 TH/MM3 (1.8-7.7); POLYS (SEG NEUTROPHILS) 75 % (16-70); WBC DIFF SAMPLE 100
[2016-12-28 13:09] LABS: KERATOCYTES OCC (NORMAL); PLATELET ESTIMATE SMEAR LOW (NORMAL); PLATELET MORPHOLOGY ENLARGED (NORMAL); SCAN/DIFF FINAL DIFF MANUAL
--- NOTE | 2016-12-28 13:36 | HHI.IDPN ---
Note Infectious Disease Note Patient without complaints. Denies chills or nausea. Says he feels better. Afebrile. Reports that he has little pain in left foot. Blood culture has staph aureus and Pasteurella. Foot culture has mixed organisms including anaerobes and staph aureus. The patient presented with weakness and diarrhea. PAST MEDICAL HISTORY: 1. Diabetes mellitus. 2. Hypertension. 3. Depression. 4. Anxiety. 5. Chronic left foot ulcer. 6. Fifth toe amputation in 2008. ALLERGIES: NO KNOWN DRUG ALLERGIES. ANTIBIOTICS: 1. UNASYN. 2. Clindamycin. OBJECTIVE: Vital Signs Date Time Temp Pulse Resp B/P Pulse Ox O2 Delivery O2 Flow Rate FiO2 12/28/16 12:00 76 12/28/16 12:00 99.2 76 24 163/79 97 12/28/16 10:00 74 12/28/16 08:00 99.3 68 12 168/74 98 12/28/16 08:00 68 12/28/16 07:00 96 Room Air 12/28/16 06:00 70 12/28/16 04:00 98.9 70 21 155/77 97 12/28/16 00:00 99.0 68 25 157/73 96 12/27/16 22:00 68 12/27/16 20:00 67 12/27/16 20:00 98.9 67 26 154/73 99 12/27/16 19:00 96 Room Air 12/27/16 18:00 84 12/27/16 16:00 68 12/27/16 16:00 99.0 68 24 154/74 95 12/27/16 14:00 72 12/27/16 12/27/16 12/28/16 15:00 23:00 07:00 Intake Total 1188 ml 1137 ml 725 ml Output Total 1400 ml 901 ml 851 ml Balance -212 ml 236 ml -126 ml Intake Oral 480 ml 600 ml IV Total 708 ml 537 ml 725 ml Output Urine Total 1400 ml 900 ml 850 ml Stool Total 1 ml 1 ml Laboratory Tests Test 12/26/16 12/27/16 12/28/16 17:35 07:37 06:17 White Blood Count 8.2 TH/MM3 8.9 TH/MM3 8.1 TH/MM3 Red Blood Count 2.72 MIL/MM3 2.76 MIL/MM3 3.14 MIL/MM3 Hemoglobin 8.6 GM/DL 8.7 GM/DL 9.7 GM/DL Hematocrit 25.0 % 25.8 % 29.1 % Mean Corpuscular Volume 91.7 FL 93.2 FL 92.7 FL Mean Corpuscular Hemoglobin 31.5 PG 31.5 PG 30.8 PG Mean Corpuscular Hemoglobin 34.4 % 33.8 % 33.2 % Concent Red Cell Distribution Width 17.6 % 17.3 % 17.3 % Platelet Count 70 TH/MM3 85 TH/MM3 91 TH/MM3 Mean Platelet Volume 10.9 FL 10.7 FL 10.0 FL Neutrophils (%) (Auto) 76.4 % 75.4 % Lymphocytes (%) (Auto) 9.8 % 11.6 % Monocytes (%) (Auto) 12.5 % 11.4 % Eosinophils (%) (Auto) 1.1 % 1.3 % Basophils (%) (Auto) 0.2 % 0.3 % Neutrophils # (Auto) 6.3 TH/MM3 6.7 TH/MM3 Lymphocytes # (Auto) 0.8 TH/MM3 1.0 TH/MM3 Monocytes # (Auto) 1.0 TH/MM3 1.0 TH/MM3 Eosinophils # (Auto) 0.1 TH/MM3 0.1 TH/MM3 Basophils # (Auto) 0.0 TH/MM3 0.0 TH/MM3 CBC Comment AUTO DIFF AUTO DIFF Differential Comment AUTO DIFF AUTO DIFF FINAL DIFF CONFIRMED CONFIRMED MANUAL Platelet Estimate LOW LOW LOW Platelet Morphology Comment NORMAL NORMAL ENLARGED Ovalocytes 1+ Acanthocytes OCC Differential Total Cells 100 Counted Neutrophils % (Manual) 75 % Band Neutrophils % 5 % Lymphocytes % 9 % Monocytes % 9 % Eosinophils % 2 % Neutrophils # (Manual) 6.5 TH/MM3 Keratocytes OCC Laboratory Tests Test 12/26/16 12/27/16 12/28/16 17:35 04:17 04:27 Vitamin B12 Level GREATER THAN 2000 PG/ML Folate 10.0 NG/ML Sodium Level 140 MEQ/L 138 MEQ/L Potassium Level 4.2 MEQ/L 4.6 MEQ/L Chloride Level 107 MEQ/L 106 MEQ/L Carbon Dioxide Level 21.0 MEQ/L 23.3 MEQ/L Anion Gap 12 MEQ/L 9 MEQ/L Blood Urea Nitrogen 44 MG/DL 31 MG/DL Creatinine 1.96 MG/DL 1.52 MG/DL Estimat Glomerular Filtration 35 ML/MIN 48 ML/MIN Rate Random Glucose 157 MG/DL 118 MG/DL Calcium Level 7.7 MG/DL 7.7 MG/DL Total Bilirubin 1.4 MG/DL Aspartate Amino Transf 27 U/L (AST/SGOT) Alanine Aminotransferase 12 U/L (ALT/SGPT) Alkaline Phosphatase 101 U/L Total Protein 6.4 GM/DL Albumin 1.6 GM/DL Microbiology Date/Time Procedure Status Source Growth 12/25/16 21:20 Aerobic Blood Culture - Preliminary Resulted Blood Peripheral NO GROWTH IN 3 DAYS 12/25/16 21:20 Anaerobic Blood Culture - Preliminary Resulted Blood Peripheral NO GROWTH IN 3 DAYS 12/25/16 21:26 Aerobic Blood Culture - Preliminary Resulted Blood Peripheral NO GROWTH IN 3 DAYS 12/25/16 21:26 Anaerobic Blood Culture - Preliminary Resulted Blood Peripheral NO GROWTH IN 3 DAYS Microbiology Date/Time Procedure Status Source Growth 12/23/16 04:20 Cancelled Sputum Expectorated Sputum 12/23/16 08:20 Gram Stain - Final Complete Wound Foot 12/23/16 08:20 Wound Culture - Final Complete Staphylococcus Aureus Enterococcus Raffinosus Mixed Anaerobes 12/23/16 08:20 Acid Fast Stain - Final Resulted Wound Foot NO ACID FAST BACILLI SEEN 12/23/16 08:20 Mycobacterial Culture Resulted Wound Foot Pending 12/23/16 08:20 Fungal Smear - Final Resulted Wound Foot NO FUNGAL ELEMENTS SEEN. 12/23/16 08:20 Fungal Culture Resulted Wound Foot Pending 12/23/16 08:22 Acid Fast Stain - Final Resulted Wound Bone NO ACID FAST BACILLI SEEN 12/23/16 08:22 Mycobacterial Culture Resulted Wound Bone Pending 12/23/16 08:22 Fungal Smear - Final Resulted Wound Bone NO FUNGAL ELEMENTS SEEN. 12/23/16 08:22 Fungal Culture Resulted Wound Bone Pending 12/23/16 08:22 Gram Stain - Final Complete Wound Bone 12/23/16 08:22 Wound Culture - Final Complete Staphylococcus Aureus Enterococcus Raffinosus Mixed Anaerobes IMAGING: Renal Ultrasound 12/25/16 0000 Signed Impressions: Service Date/Time: Sunday, December 25, 2016 13:28 - CONCLUSION: 1. Unremarkable ultrasound examination of the kidneys. Hang Lin MD Foot X-Ray 12/23/16 0000 Signed Impressions: Service Date/Time: Friday, December 23, 2016 09:40 - CONCLUSION: Soft tissue swelling and post surgical changes. Laureano rGider MD Foot MRI 12/22/16 0000 Signed Impressions: Service Date/Time: Thursday, December 22, 2016 16:49 - CONCLUSION: 1. Diffuse marrow edema involving the remaining portion of the left 5th metatarsal with extensive overlying soft-tissue swelling. The findings raise the possibility of osteomyelitis of the 5th metatarsal and overlying cellulitis. Clinical correlation is recommended. 2. Questionable nondisplaced fractures involving the bases of the left 3rd and 4th metatarsals with some associated marrow edema. Shade Kee MD Chest X-Ray 12/21/160 Signed Impressions: Service Date/Time: Wednesday, December 21, 2016 22:20 - CONCLUSION: No acute disease. Paramjit Bae MD PHYSICAL EXAMINATION: GENERAL: No acute distress. HEENT: No icterus. Oropharynx without lesions. Moist mucosa. NECK: No adenopathy or swelling. LUNGS: Clear to auscultation. HEART: Regular S1-S2 without murmurs, rubs or gallops. ABDOMEN: Bowel sounds present, soft, obese, nontender. No masses palpable. EXTREMITIES: The left foot with open necrotic wound with tendon and bone exposed at the ankle and foot and dusky skin changes and foul odor. The left foot has 3 + edema. SKIN: Warm and moist. NEUROLOGIC: Nonfocal. PSYCHIATRIC: Calm and cooperative. Affect appears flat. IMPRESSION: 1. Sepsis on admission based on patient with fever and elevated white blood cell count and infection at the left foot in a patient with necrotic gas forming organism and cellulitis. Staph and Pasteurella. Repeat blood cultures are negative. 2. Cellulitis of the left foot/Necrotic open wound. Marrow edema at the 5th metatarsal as well as the 3rd and 4th metatarsal suggesting osteo. 3. Diabetes mellitus. 4. Acute kidney disease. Renal following. RECOMMENDATIONS: 1. Continue Unasyn IV until 02/03/17. 2. Stop clindamycin. Avoid Vancomycin in this patient with acute kidney disease. 3. Can place a PIC for IV antibiotics. I do not think the wound will heal or can be resolved without surgery. Patient changed his mind about surgery after telling myself and RN that he was ready to proceed. Currently his nephew, a physician is in his room and I discussed with him that this infection is unlikely to heel without surgery in the presence of the patient. From my standpoint the patient can be treated with IV antibiotics at a rehab facility because he requires frequent antibiotics. I have discussed my recommendation with DR. Frnace. I will sign off patient today. He needs IV antibiotics x 6 weeks until February 03 if he does not have surgical amputation and need to follow up with podiatry or orthopedic surgery. Manny Romano MD December 28, 2016 13:36
--- NOTE | 2016-12-28 13:39 | HHI.FF ---
Infusion Therapy Location of Infusion Therapy: 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 [] May leave port accessed during therapy. [] May leave peripheral site accessed for duration of therapy. [x] If patient has SOB or respiratory distress, check oxygen saturation. If less than 90% or clinical signs of respiratory distress, administer oxygen at 2 L/min. via nasal cannula and notify physician. [x] Anaphylaxis/Reaction orders: * Stop infusion. * Keep IV line open with saline flush. * Notify physician. * Monitor vital signs every 15 minutes until symptoms resolve. * Check Oxygen saturation; Oxygen at 2 L/min. via nasal cannula if less than 90% or clinical signs of respiratory distress. * Administer diphenhydramine (Benadryl) 25 mg IV STAT, (unless patient has received as pre-med). May repeat once, if necessary. * Solu-Cortef 250 mg IVP over 30-60 seconds, use 100 mg vials for each dissolution. * Epinephrine (1mg/1 ml) 0.3 mg subcutaneously or IVP now with any signs of respiratory distress. * Check with physician for new additional pre-med orders if patient is re- challenged or re-treated. [x] May remove PICC line when treatment complete, after confirming with Physician. [x] If the patient is admitted to the hospital, the ED, or transferred via [facility] , complete transfer form including medication reconciliation order sheet. Laboratory Tests Weekly Labs: Manny Murcia MD December 28, 2016 13:39
[2016-12-28 18:34] LABS: APTT (PATIENT) 46.1 SEC (24.3-30.1)
[2016-12-28] MEDS: ACETAMINOPHEN 325 MG TAB PO PRN (20:28)
--- NOTE | 2016-12-28 22:57 | PD.ONC.PN ---
Subjective Subjective Remarks anxious now does not want to have BKA no bleeding no dyspnea argatroban stopped Objective Data Date Time Temp Pulse Resp B/P Pulse Ox O2 Delivery O2 Flow Rate FiO2 12/28/16 20:00 100.9 78 20 127/52 94 12/28/16 16:00 73 12/28/16 16:00 100.4 72 28 164/80 97 12/28/16 14:00 74 12/28/16 12:00 76 12/28/16 12:00 99.2 76 24 163/79 97 12/28/16 10:00 74 12/28/16 08:00 99.3 68 12 168/74 98 12/28/16 08:00 68 12/28/16 07:00 96 Room Air 12/28/16 06:00 70 12/28/16 04:00 98.9 70 21 155/77 97 12/28/16 00:00 99.0 68 25 157/73 96 12/28/16 12/28/16 12/28/16 07:00 15:00 23:00 Intake Total 725 ml 994 ml 120 ml Output Total 851 ml 1000 ml 350 ml Balance -126 ml -6 ml -230 ml Result Diagram: 12/28/16 0617 12/28/16 0427 Laboratory Results Laboratory Tests Test 12/28/16 12/28/16 12/28/16 04:27 06:17 18:03 Prothrombin Time 69.6 SEC Prothromb Time International 5.8 RATIO Ratio Activated Partial 72.0 SEC 46.1 SEC Thromboplast Time Sodium Level 138 MEQ/L Potassium Level 4.6 MEQ/L Chloride Level 106 MEQ/L Carbon Dioxide Level 23.3 MEQ/L Anion Gap 9 MEQ/L Blood Urea Nitrogen 31 MG/DL Creatinine 1.52 MG/DL Estimat Glomerular Filtration 48 ML/MIN Rate Random Glucose 118 MG/DL Calcium Level 7.7 MG/DL Total Bilirubin 1.4 MG/DL Aspartate Amino Transf 27 U/L (AST/SGOT) Alanine Aminotransferase 12 U/L (ALT/SGPT) Alkaline Phosphatase 101 U/L Total Protein 6.4 GM/DL Albumin 1.6 GM/DL White Blood Count 8.1 TH/MM3 Red Blood Count 3.14 MIL/MM3 Hemoglobin 9.7 GM/DL Hematocrit 29.1 % Mean Corpuscular Volume 92.7 FL Mean Corpuscular Hemoglobin 30.8 PG Mean Corpuscular Hemoglobin 33.2 % Concent Red Cell Distribution Width 17.3 % Platelet Count 91 TH/MM3 Mean Platelet Volume 10.0 FL Differential Total Cells 100 Counted Neutrophils % (Manual) 75 % Band Neutrophils % 5 % Lymphocytes % 9 % Monocytes % 9 % Eosinophils % 2 % Neutrophils # (Manual) 6.5 TH/MM3 Differential Comment FINAL DIFF MANUAL Platelet Estimate LOW Platelet Morphology Comment ENLARGED Keratocytes OCC Administered Medications Medications (Trade) Dose Ordered Sig/Jeffy Route PRN Reason Start Time Stop Time Status Last Admin Dose Admin Aripiprazole (Abilify) 5 mg DAILY PO 12/22/16 09:00 12/28/16 09:00 Sodium Chloride (NS Flush) 2 ml BID IV FLUSH 12/22/16 09:00 12/28/16 08:05 Famotidine (Pepcid Inj) 10 mg Q12HR IV PUSH 12/22/16 09:00 12/28/16 20:34 Miscellaneous Information 1 [id number] XX 12/22/16 01:45 12/22/16 01:45 Chlorhexidine Gluconate (Chlorhexidine 2% Cloth) Taper DAILY@04 TOP 12/22/16 04:00 12/18/17 03:59 12/28/16 04:00 Acetaminophen (Tylenol) 650 mg Q6H PRN PO FEVER 12/22/16 12:45 12/28/16 20:28 Citalopram Hydrobromide 20 mg 20 mg DAILY PO 12/24/16 09:00 12/28/16 09:06 Sodium Bicarbonate 75 meq/Sodium Chloride 1,075 ml @ 75 mls/hr [id number] IV 12/24/16 08:00 12/28/16 13:28 Ampicillin Sodium/ Sulbactam Sodium/ Sodium Chloride (Unasyn Inj/NS Inj) 100 ml @ 200 mls/hr Q6H IV 12/26/16 15:00 12/28/16 20:28 Fondaparinux (Arixtra Inj) 2.5 mg Q24H SQ 12/28/16 09:00 12/28/16 09:06 Objective Remarks GENERAL: nad SKIN: Warm and dry. LYMPHATIC: No adenopathy. CARDIOVASCULAR: Regular rate and rhythm without murmurs. RESPIRATORY: Breath sounds equal bilaterally. No accessory muscle use. GASTROINTESTINAL: Abdomen soft, non-tender, EXTREMITIES: No cyanosis, edematous Assessment/Plan Problem List: (1) Sepsis Status: Acute (2) Diabetic foot ulcer Status: Chronic (3) Chronic kidney disease Status: Acute (4) Acute renal failure superimposed on stage 3 chronic kidney disease Status: Acute (5) Cellulitis Status: Acute (6) Thrombocytopenia Status: Acute (7) HIT (heparin-induced thrombocytopenia) Status: Acute (8) Anemia Status: Chronic Assessment 56-year-old male with multiple medical problems including diabetes, type 2, chronic left foot ulcer, depression, who presents to the emergency department with lethargy, left foot pain. He is currently undergoing evaluation for left foot infection/cellulitis. 1. Acute thrombocytopenia due to sepsis --PLT count trending up - HIT positive. DARIEN negative. Likely false positive - D/C argatroban - No evidence of microangiopathy. DIC panel negative 2. Acute anemia due to multiple factors including sepsis, chronic leg wound, diabetes, etc. No evidence of hemolysis. indirect bili normal. haptoglobin not low. Direct mathew negative - check daily cbc 3. Acute on chronic CKD. 4. Sepsis/cellulitis RLE --on abx Platelets improving. On prophy dose Fondaparinux will sign-off. Please call if any questions Problem Qualifiers (1) Sepsis: Qualified Code: A41.9 - Sepsis, due to unspecified organism (2) Diabetic foot ulcer: Qualified Code: E11.621 - Diabetic ulcer of toe of left foot associated with type 2 diabetes mellitus, unspecified ulcer stage (3) Chronic kidney disease: Qualified Code: N18.9 - Chronic kidney disease, unspecified CKD stage (4) Acute renal failure superimposed on stage 3 chronic kidney disease: Qualified Code: N17.9 - Acute renal failure superimposed on stage 3 chronic kidney disease, unspecified acute renal failure type (5) Anemia: Qualified Code: D64.9 - Anemia, unspecified type Nick Bañuelos MD December 28, 2016 22:57
[2016-12-29] VITALS: BP 123/55; PULSE 72; RESP 20; TEMP 97.9; O2SAT 95
[2016-12-29] MEDS: SODIUM BICARBONATE 8.4% INJ 75 MEQ in SODIUM CHLOR 0.45% 1000 ML INJ 1,000 ML IV SCH ×2 (02:28→11:51)
[2016-12-29] MEDS: VASOPRESSIN INJ 40 UNITS in DEXTROSE 5% IN WATER 100ML INJ 98 ML IV SCH ×2 (02:33)
[2016-12-29] MEDS: CHLORHEXIDINE GLUCONATE 2 % 1 PACK (2 CLOTHS) TOP SCH (02:33)
[2016-12-29] MEDS: AMPICILLIN-SULBACTAM INJ 1,500 MG in SODIUM CHLORIDE 0.9% INJ 100 ML IV SCH ×4 (02:41→21:38)
[2016-12-29 04:00] VITALS: TEMP 98.4
[2016-12-29] MEDS: INSULIN ASPART SUPPLEMENTAL SCALE SQ SCH ×4 (06:23→21:34)
[2016-12-29 08:00] VITALS: BP 148/73; PULSE 74; RESP 17; TEMP 99.1; O2SAT 95
[2016-12-29] MEDS: FAMOTIDINE 20 MG/2 ML VIAL IV PUSH SCH ×2 (08:04→21:44)
[2016-12-29] MEDS: CITALOPRAM HYDROBROMIDE 20 MG TAB PO SCH (08:04)
[2016-12-29] MEDS: ARIPiprazole 5 MG TAB PO SCH (08:04)
[2016-12-29] MEDS: FONDAPARINUX SODIUM 2.5 MG/0.5 ML SYRINGE SQ SCH (08:04)
[2016-12-29] MEDS: SODIUM CHLORIDE 0.9% FLUSH 10 ML FLUSH IV FLUSH SCH ×2 (08:05→21:37)
--- NOTE | 2016-12-29 08:23 | HHI.FPPN ---
Subjective Remarks Patient states he feels good this morning. After a long discussion with his cousin, who is an developmental training counselor, the patient now would like to undergo surgery. He denies fevers, chills, nausea, vomiting, diarrhea, pain. (Freddie Barahona MD R2) Objective Vitals Vital Signs Date Time Temp Pulse Resp B/P Pulse Ox O2 Delivery O2 Flow Rate FiO2 12/29/16 08:00 99.1 74 17 148/73 95 12/29/16 04:00 98.4 12/29/16 00:00 97.9 72 20 123/55 95 12/28/16 20:00 Room Air 12/28/16 20:00 100.9 78 20 127/52 94 12/28/16 16:00 73 12/28/16 16:00 100.4 72 28 164/80 97 12/28/16 14:00 74 12/28/16 12:00 76 12/28/16 12:00 99.2 76 24 163/79 97 12/28/16 10:00 74 I/O 12/28/16 12/28/16 12/28/16 12/29/16 12/29/16 12/29/16 07:00 15:00 23:00 07:00 15:00 23:00 Intake Total 725 ml 994 ml 120 ml 1993 ml Output Total 851 ml 1000 ml 350 ml 1050 ml Balance -126 ml -6 ml -230 ml 943 ml Intake Oral 240 ml 120 ml 720 ml IV Total 725 ml 754 ml 1273 ml Output Urine Total 850 ml 1000 ml 350 ml 1050 ml Stool Total 1 ml (Freddie Barahona MD R2) Result Diagram: 12/28/16 0617 12/28/16 0427 Objective Remarks GENERAL: This is a well-nourished, well-developed patient, with some apparent depressed affect SKIN: Warm left lower extremity, venostasis changes of both lower extremities, worse on left with cellulitic changes and pitting edema to knee. small papules lower leg HEAD: Atraumatic. Normocephalic. CARDIOVASCULAR: RRR RESPIRATORY: Clear to auscultation. Breath sounds equal bilaterally. No wheezes , rales, or rhonchi. GASTROINTESTINAL: Abdomen soft, non-tender, nondistended. No hepato-splenomegaly , or palpable masses. No guarding. MUSCULOSKELETAL: Status post surgical procedure on the left. Currently wrapped with Christophe bandage per podiatry. Able to move toes on left. Sensation intact although diminished. Right foot is clear of any lesions. NEUROLOGICAL: Awake and alert. Cranial nerves II through XII intact. Sensation diminished in left foot compared to the right, some sensation present in distal left lower extremity. Unable to locate which toe is being touched on the left. (Freddie Barahona MD R2) A/P Assessment and Plan 56-year-old male with a past medical history of complicated type 2 diabetes presents septic with diabetic foot wound on the left. Podiatry, infectious disease, critical care, orthopedic surgery consult. Plan as below. Discharge Planning Pending clinical improvement and specialty recommendations. Case management consulted for discharge needs. Physical therapy recommends PT at rehabilitation or home health care. Per infectious disease standpoint, patient can receive IV antibiotics until 02/03 at a SNF if he continues to decline a L BKA As of 12/29: Patient would like to proceed with surgery. (Freddie Barahona MD R2) Attending Attestation Patient seen and examined, discussed with resident team. I agree with assessment and management as documented and discussed with me. Pt is resting in bed. No new concern. Await final decision by patient re: BKA. (Andie Guerrero MD) Problem List: (1) Diabetic foot ulcer Status: Chronic Plan: Podiatry consulted Infectious disease consult Physical therapy consult. Orthopedic surgery consult per podiatry on 12/25 for possible left BKA -12/23: Status post left foot ankle incision drainage debridement partial resection of the 5th metatarsal head. -Intraoperative findings show severe necrosis down to periosteum of the midfoot , abscess severe. -12/25: Multiple specialists including podiatry, orthopedic surgery are recommending amputation. Antibiotics per ID: Unasyn IV every 6 hours (started 12/26) - Per ID, Unasyn IV to be continued until 02/03/2017 Wound culture: Staph aureus, strep, mixed anaerobes, gram-negative gena Blood Cultures positive as listed under sepsis Bone pathology left fifth metatarsal showing acute osteomyelitis Antibiotic history: Clindamycin IV now discontinued (12/22-12/28), Zosyn also discontinued (12/22-12/26) (2) Acute renal failure superimposed on stage 3 chronic kidney disease Status: Acute Plan: Creatinine improving Nephrology consulted (3) Anemia Status: Chronic Plan: Hematology consult Status post 2 units packed red blood cells on 12/22. Status post 2 units packed red blood cells on 12/25. Continue to monitor; transfuse when less than 7 Hemoccult ordered Labs: Vitamin B12, B1, folate within normal limits. soluble transferrin receptor pending (4) Diabetes Status: Acute Plan: -Hemoglobin A1c on 12/11 was 6.9 Sliding scale insulin while in hospital. Patient has had diarrhea on metformin, likely will need to be discontinued as an outpatient and put on glipizide (5) Social issues Status: Acute Plan: Patient lives with his 90-year-old aunt who has dementia and is unable to take care of the patient on discharge. Case management consulted to assist with disposition. (6) Anxiety and depression Status: Acute Plan: -Continue home Abilify 5 mg by mouth daily and Celexa 10 mg by mouth daily -Psychiatry consulted: Diagnosed with dysthymia; he has appropriate follow-up with psychiatry services in the community -he has seen [employer] Time Babysitter and talks with Dr Barahona daily (7) FEN/DVT PPX/GI PPX Status: Acute Plan: Fluids: Half-normal saline plus sodium bicarbonate at 75 mL's per hour Electrolytes: Will monitor and replace as needed Nutrition: Diabetic diet (will need to be changed to nothing by mouth at midnight when surgery is expected) DVT Prophylaxis: Fondaparinux per hematology GI Prophylaxis: Famotidine 10 mg IV every 12 hours (8) Sepsis Status: Resolved Plan: Infectious disease consult Vitals currently stable. Sources of sepsis is left foot wound. See antibiotic management under diabetic foot wound Blood cultures 12/21: Pasteurella, Staphylococcus aureus Blood cultures 12/25: No growth to date (9) HIT (heparin-induced thrombocytopenia) Status: Resolved Plan: Hematology consult Serotonin release assay negative. HIT positive is likely a false positive result Platelets uptrending Patient has been started on fondaparinux per hematology. Medical history: Heparin discontinued Argatroban discontinued per hematology (Freddie Barahona MD R2) Problem Qualifiers (1) Diabetic foot ulcer: Qualified Code: E11.621 - Diabetic ulcer of toe of left foot associated with type 2 diabetes mellitus, unspecified ulcer stage (2) Acute renal failure superimposed on stage 3 chronic kidney disease: Qualified Code: N17.9 - Acute renal failure superimposed on stage 3 chronic kidney disease, unspecified acute renal failure type (3) Anemia: Qualified Code: D64.9 - Anemia, unspecified type (4) Diabetes: Qualified Code: E11.42 - Type 2 diabetes mellitus with diabetic polyneuropathy , without long-term current use of insulin (5) Sepsis: Qualified Code: A41.9 - Sepsis, due to unspecified organism Freddie Barahona MD R2 December 29, 2016 08:23 Andie Guerrero MD December 29, 2016 20:00
[2016-12-29 09:50] LABS: AUTOMATED NEUTROPHIL # 4.5 TH/MM3 (1.8-7.7); BASOPHIL % 0.2 % (0.0-2.0); EOSINOPHIL # 0.1 TH/MM3 (0-0.4); EOSINOPHIL % 1.1 % (0.0-4.0); HEMATOCRIT 24.2 % (39.0-51.0); LYMPH % 13.9 % (9.0-44.0); LYMPHOCYTE # 0.9 TH/MM3 (1.0-4.8); MEAN CELL VOLUME 92.1 FL (80.0-100.0); MEAN CORPUSCULAR HEMOGLOBIN 31.1 PG (27.0-34.0); MEAN CORPUSCULAR HGB CONC 33.8 % (32.0-36.0); MONO % 13.7 % (0.0-8.0); NEUT % 71.1 % (16.0-70.0); PLATELET COUNT 86 TH/MM3 (150-450); RED BLOOD COUNT 2.63 MIL/MM3 (4.50-5.90); WHITE BLOOD COUNT 6.4 TH/MM3 (4.0-11.0)
[2016-12-29 09:54] LABS: HEMO FLAGS AUTO DIFF
[2016-12-29 10:18] LABS: BICARBONATE 23.8 MEQ/L (21.0-32.0); POTASSIUM 3.9 MEQ/L (3.5-5.1)
[2016-12-29 10:49] LABS: OVALOCYTES 1+ (NORMAL); PLATELET ESTIMATE SMEAR LOW (NORMAL); PLATELET MORPHOLOGY NORMAL (NORMAL); SCAN/DIFF AUTO DIFF CONFIRMED
[2016-12-29 12:00] VITALS: BP 147/74; PULSE 74; RESP 17; TEMP 94.8; O2SAT 94
--- NOTE | 2016-12-29 12:10 | HHI.NPPN ---
Subjective General Problems: Anemia Renal Failure: Acute Additional Remarks Patient is alert, not eating well, no SOB. Review of Systems General Constitutional: Fatigue Musculoskeletal MS: Pain/Stiffness Objective Data Data 12/28/16 12/29/16 19:00 07:00 Intake Total 994 ml 2113 ml Output Total 1000 ml 1400 ml Balance -6 ml 713 ml Intake Oral 240 ml 840 ml IV Total 754 ml 1273 ml Output Urine Total 1000 ml 1400 ml Vital Signs Date Time Temp Pulse Resp B/P Pulse Ox O2 Delivery O2 Flow Rate FiO2 12/29/16 08:00 99.1 74 17 148/73 95 12/29/16 04:00 98.4 12/29/16 00:00 97.9 72 20 123/55 95 12/28/16 20:00 Room Air 12/28/16 20:00 100.9 78 20 127/52 94 12/28/16 16:00 73 12/28/16 16:00 100.4 72 28 164/80 97 12/28/16 14:00 74 -: 12/29/16 0923 12/29/16 0923 Physical Exam General Appearance: No Acute Distress, Comfortable Neck Neck Exam: Neck Supple Pulmonary Resp Exam: Clear Bilaterally, Breath Sounds Equal Cardiology CV Exam: Regular, Normal Sinus Rhythm Gastrointestinal/Abdomen GI Exam: Soft, Non-Tender, Bowel Sounds Present Extremeties Extremities Exam: Trace Edema Neurologic Neuro Exam: Alert, Awake Assessment/Plan Problem List: (1) Acute renal failure superimposed on stage 3 chronic kidney disease Plan: Patient has a kidney ultrasound which was unremarkable Creatinine continue to improve with treatment of infection and hydration Encourage oral intake, continue IVF. Avoid Nephrotoxins. (2) Diabetic foot ulcer Plan: Patient is being followed by Dr. Ramirez (3) Cellulitis Plan: On clindamycin and Zosyn (4) Thrombocytopenia Plan: History of HIT hematology is following Argatroban treatment (5) HIT (heparin-induced thrombocytopenia) Plan: HIT positive (6) Osteomyelitis of left foot Plan: possible amputation if he agrees Problem Qualifiers (1) Acute renal failure superimposed on stage 3 chronic kidney disease: Qualified Code: N17.9 - Acute renal failure superimposed on stage 3 chronic kidney disease, unspecified acute renal failure type (2) Diabetic foot ulcer: Qualified Code: E11.621 - Diabetic ulcer of toe of left foot associated with type 2 diabetes mellitus, unspecified ulcer stage (3) Osteomyelitis of left foot: Qualified Code: M86.472 - Chronic osteomyelitis of left foot with draining sinus Michel Torres MD December 29, 2016 12:10
[2016-12-29 16:00] VITALS: BP 148/67; PULSE 76; RESP 16; TEMP 98.7; O2SAT 92
[2016-12-29 20:00] VITALS: BP 146/67; PULSE 79; RESP 20; TEMP 100.6; O2SAT 93
[2016-12-29] MEDS: ACETAMINOPHEN 325 MG TAB PO PRN (21:35)
[2016-12-30] VITALS: BP 152/73; PULSE 76; RESP 20; TEMP 98.5; O2SAT 93
[2016-12-30] MEDS: CHLORHEXIDINE GLUCONATE 2 % 1 PACK (2 CLOTHS) TOP SCH (01:40)
[2016-12-30] MEDS: VASOPRESSIN INJ 40 UNITS in DEXTROSE 5% IN WATER 100ML INJ 98 ML IV SCH ×2 (01:54)
[2016-12-30] MEDS: AMPICILLIN-SULBACTAM INJ 1,500 MG in SODIUM CHLORIDE 0.9% INJ 100 ML IV SCH ×4 (02:01→22:50)
[2016-12-30] MEDS: SODIUM BICARBONATE 8.4% INJ 75 MEQ in SODIUM CHLOR 0.45% 1000 ML INJ 1,000 ML IV SCH (03:47)
[2016-12-30 05:06] LABS: AUTOMATED NEUTROPHIL # 3.2 TH/MM3 (1.8-7.7); BASOPHIL % 0.3 % (0.0-2.0); EOSINOPHIL # 0.1 TH/MM3 (0-0.4); EOSINOPHIL % 1.8 % (0.0-4.0); HEMATOCRIT 23.3 % (39.0-51.0); LYMPH % 19.8 % (9.0-44.0); MEAN CELL VOLUME 92.9 FL (80.0-100.0); MEAN CORPUSCULAR HGB CONC 33.4 % (32.0-36.0); MONO % 16.1 % (0.0-8.0); PLATELET COUNT 78 TH/MM3 (150-450); WHITE BLOOD COUNT 5.1 TH/MM3 (4.0-11.0)
[2016-12-30 05:07] LABS: INTERNATIONAL NORMALIZED RATIO 1.2 RATIO; PROTHROMBIN TIME - PATIENT 13.9 SEC (9.8-11.6)
[2016-12-30 05:11] LABS: HEMO FLAGS AUTO DIFF
[2016-12-30 05:21] LABS: BICARBONATE 25.9 MEQ/L (21.0-32.0); POTASSIUM 3.9 MEQ/L (3.5-5.1)
[2016-12-30 06:00] LABS: KERATOCYTES OCC (NORMAL); PLATELET ESTIMATE SMEAR LOW (NORMAL); PLATELET MORPHOLOGY NORMAL (NORMAL); SCAN/DIFF AUTO DIFF CONFIRMED
[2016-12-30] MEDS: INSULIN ASPART SUPPLEMENTAL SCALE SQ SCH ×4 (06:42→21:00)
[2016-12-30 08:00] VITALS: BP 165/79; PULSE 74; RESP 18; TEMP 97.9; O2SAT 94
[2016-12-30] MEDS: CITALOPRAM HYDROBROMIDE 20 MG TAB PO SCH (08:20)
[2016-12-30] MEDS: FONDAPARINUX SODIUM 2.5 MG/0.5 ML SYRINGE SQ SCH (08:20)
[2016-12-30] MEDS: ARIPiprazole 5 MG TAB PO SCH (08:21)
[2016-12-30] MEDS: FAMOTIDINE 20 MG/2 ML VIAL IV PUSH SCH ×2 (08:21→22:38)
[2016-12-30] MEDS: SODIUM CHLORIDE 0.9% FLUSH 10 ML FLUSH IV FLUSH SCH ×2 (08:21→22:37)
--- NOTE | 2016-12-30 10:26 | HHI.FPPN ---
Subjective Remarks Patient seen and examined this AM. Patient had a temp of 100.6F yesterday evening. States he is doing "pretty good so far". Denies pain in his foot. He thinks the swelling in the foot has gone down. When asked if felt fevers he says he did feel a little bit warm last night. He is still wanting to proceed with the BKA. He denies chest pain or SOB. (Chacorta France MD R1) Objective Vitals Vital Signs Date Time Temp Pulse Resp B/P Pulse Ox O2 Delivery O2 Flow Rate FiO2 12/30/16 08:00 97.9 74 18 165/79 94 12/30/16 00:00 98.5 76 20 152/73 93 12/29/16 20:00 100.6 79 20 146/67 93 12/29/16 16:00 98.7 76 16 148/67 92 12/29/16 12:00 94.8 74 17 147/74 94 I/O 12/29/16 12/29/16 12/29/16 12/30/16 12/30/16 12/30/16 07:00 15:00 23:00 07:00 15:00 23:00 Intake Total 1993 ml 400 ml 480 ml 952 ml Output Total 1050 ml 800 ml 450 ml 1150 ml Balance 943 ml -400 ml 30 ml -198 ml Intake Oral 720 ml 400 ml 480 ml 240 ml IV Total 1273 ml 712 ml Output Urine Total 1050 ml 800 ml 450 ml 1150 ml # Bowel Movements 1 1 (Chacorta France MD R1) Result Diagram: 12/30/16 0440 12/30/16 0440 Imaging Last Impressions Renal Ultrasound 12/25/16 0000 Signed Impressions: Service Date/Time: Sunday, December 25, 2016 13:28 - CONCLUSION: 1. Unremarkable ultrasound examination of the kidneys. Hang Lin MD Foot X-Ray 12/23/16 0000 Signed Impressions: Service Date/Time: Friday, December 23, 2016 09:40 - CONCLUSION: Soft tissue swelling and post surgical changes. Laureano Grider MD Foot MRI 12/22/16 0000 Signed Impressions: Service Date/Time: Thursday, December 22, 2016 16:49 - CONCLUSION: 1. Diffuse marrow edema involving the remaining portion of the left 5th metatarsal with extensive overlying soft-tissue swelling. The findings raise the possibility of osteomyelitis of the 5th metatarsal and overlying cellulitis. Clinical correlation is recommended. 2. Questionable nondisplaced fractures involving the bases of the left 3rd and 4th metatarsals with some associated marrow edema. Shade Kee MD Chest X-Ray 12/21/16 6653 Signed Impressions: Service Date/Time: Wednesday, December 21, 2016 22:20 - CONCLUSION: No acute disease. Paramjit Bae MD Objective Remarks GENERAL: This is a well-nourished, well-developed patient, with some apparent depressed affect SKIN: Warm left lower extremity, venostasis changes of both lower extremities, worse on left with cellulitic changes and pitting edema to knee. small papules lower leg. Left foot wrapped in CHRISTOPHE bandage. HEAD: Atraumatic. Normocephalic. CARDIOVASCULAR: RRR RESPIRATORY: Clear to auscultation. Breath sounds equal bilaterally. No wheezes , rales, or rhonchi. GASTROINTESTINAL: Abdomen soft, non-tender, nondistended. No hepato-splenomegaly , or palpable masses. No guarding. MUSCULOSKELETAL: Status post surgical procedure on the left. Currently wrapped with Christophe bandage. Able to move toes on left. Sensation intact although diminished. Right foot is clear of any lesions. NEUROLOGICAL: Awake and alert. Cranial nerves grossly intact. Sensation diminished in left foot compared to the right, some sensation present in distal left lower extremity. Unable to locate which toe is being touched on the left. (Chacorta France MD R1) Urinary Catheter: Yes Assessment to: Continue Arthur insert reason: Prolonged Immobilization (Chacorta France MD R1) A/P Assessment and Plan 56-year-old male with a past medical history of complicated type 2 diabetes presented meeting sepsis criteria with diabetic left foot wound. Plan as below. Discharge Planning Pending clinical improvement and specialty recommendations. Case management consulted for discharge needs. Physical therapy recommends PT at rehabilitation or home health care. As of 12/30: Patient would still like to proceed with surgery. (Chacorta France MD R1) Attending Attestation Patient seen and examined, discussed with resident team. I agree with assessment and management as documented and discussed with me. Pt without significant complaints. He reports loose stools (no diarrhea) from antibiotics; will add lactobacillus. Await decision from orthopedic surgery re: timing of BKA. (Andie Guerrero MD) Problem List: (1) Diabetic foot ulcer Status: Chronic Plan: Podiatry consulted Infectious disease consult Physical therapy consult Orthopedic surgery consult per podiatry on 12/25 for possible left BKA -12/23: Status post left foot ankle incision drainage debridement partial resection of the 5th metatarsal head. -Intraoperative findings show severe necrosis down to periosteum of the midfoot , abscess severe. -12/25: Multiple specialists including podiatry, orthopedic surgery are recommending amputation. Antibiotics per ID: Unasyn IV every 6 hours (started 12/26) - Per ID, Unasyn IV to be continued until 02/03/2017, date may change as patient is now desiring to proceed with L BKA Wound culture: Staph aureus, strep, mixed anaerobes, gram-negative gena Blood Cultures positive as listed under sepsis Most recent blood cultures from 12/25 no growth after 5 days Bone pathology left fifth metatarsal showing acute osteomyelitis Antibiotic history: Clindamycin IV now discontinued (12/22-12/28), Zosyn also discontinued (12/22-12/26) (2) Acute renal failure superimposed on stage 3 chronic kidney disease Status: Acute Plan: Creatinine improving, now stable likely at baseline Nephrology consulted IVF discontinued 12/30 Avoid nephrotoxins if able Continue to monitor electrolytes Monitor I/Os (3) Anemia Status: Chronic Plan: Hematology consult Status post 2 units packed red blood cells on 12/22. Status post 2 units packed red blood cells on 12/25. Continue to monitor; transfuse when less than 7 Hemoccult ordered Labs: Vitamin B12, B1, folate within normal limits. soluble transferrin receptor pending (4) Diabetes Status: Chronic Plan: -Hemoglobin A1c on 12/11 was 6.9 Sliding scale insulin while in hospital. Patient has had diarrhea on metformin, likely will need to be discontinued as an outpatient and put on glipizide (5) Social issues Status: Acute Plan: Patient lives with his 90-year-old aunt who has dementia and is unable to take care of the patient on discharge. Case management consulted to assist with disposition. (6) Anxiety and depression Status: Acute Plan: -Continue home Abilify 5 mg by mouth daily and Celexa 10 mg by mouth daily -Psychiatry consulted: Diagnosed with dysthymia; he has appropriate follow-up with psychiatry services in the community -he has seen Snipper and talks with Dr Barahona daily (7) Sepsis Status: Resolved Plan: Infectious disease consult Vitals currently stable. Sources of sepsis is left foot wound. 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 HIT positive is likely a false positive result Continue to monitor platelets Patient has been started on fondaparinux per hematology Medical history: Heparin discontinued Argatroban discontinued per hematology (9) FEN/DVT PPX/GI PPX Status: Acute Plan: Fluids: IVF discontinued Electrolytes: Will monitor and replace as needed Nutrition: Diabetic diet (will place NPO after MN prior to surgery once date is set) DVT Prophylaxis: Fondaparinux started per hematology, now on hold - Recommendation from inpatient pharmacist: recommends holding Fondaparinux for 3-4 days prior to surgery - Last dose of Fondaparinux given 12/30 AM GI Prophylaxis: Famotidine 10 mg IV every 12 hours (Chacorta France MD R1) Problem Qualifiers (1) Diabetic foot ulcer: Qualified Code: E11.621 - Diabetic ulcer of toe of left foot associated with type 2 diabetes mellitus, unspecified ulcer stage (2) Acute renal failure superimposed on stage 3 chronic kidney disease: Qualified Code: N17.9 - Acute renal failure superimposed on stage 3 chronic kidney disease, unspecified acute renal failure type (3) Anemia: Qualified Code: D64.9 - Anemia, unspecified type (4) Diabetes: Qualified Code: E11.42 - Type 2 diabetes mellitus with diabetic polyneuropathy , without long-term current use of insulin (5) Sepsis: Qualified Code: A41.9 - Sepsis, due to unspecified organism Chacorta France MD R1 December 30, 2016 10:26 Andie Guerrero MD December 31, 2016 16:35
--- NOTE | 2016-12-30 10:53 | HHI.NPPN ---
Subjective General Problems: Anemia Renal Failure: Acute Additional Remarks Patient is alert, no pain in the foot, no SOB. Review of Systems General Constitutional: Fatigue Musculoskeletal MS: Pain/Stiffness Objective Data Data 12/29/16 12/30/16 19:00 07:00 Intake Total 400 ml 1432 ml Output Total 800 ml 1600 ml Balance -400 ml -168 ml Intake Oral 400 ml 720 ml IV Total 712 ml Output Urine Total 800 ml 1600 ml # Bowel Movements 1 1 Vital Signs Date Time Temp Pulse Resp B/P Pulse Ox O2 Delivery O2 Flow Rate FiO2 12/30/16 08:00 97.9 74 18 165/79 94 12/30/16 00:00 98.5 76 20 152/73 93 12/29/16 20:00 100.6 79 20 146/67 93 12/29/16 16:00 98.7 76 16 148/67 92 12/29/16 12:00 94.8 74 17 147/74 94 -: 12/30/16 0440 12/30/16 0440 Physical Exam General Appearance: No Acute Distress, Comfortable Neck Neck Exam: Neck Supple Pulmonary Resp Exam: Clear Bilaterally, Breath Sounds Equal Cardiology CV Exam: Regular, Normal Sinus Rhythm Gastrointestinal/Abdomen GI Exam: Soft, Non-Tender, Bowel Sounds Present Extremeties Extremities Exam: Trace Edema Neurologic Neuro Exam: Alert, Awake Assessment/Plan Problem List: (1) Acute renal failure superimposed on stage 3 chronic kidney disease Plan: Patient has a kidney ultrasound which was unremarkable Creatinine continue to improve with treatment of infection and hydration Encourage oral intake, continue IVF. Avoid Nephrotoxins. Now the Creatinine is 1.3, possibly has underlying chronic kidney disease. (2) Diabetic foot ulcer Plan: Patient is being followed by Dr. 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
[2016-12-30 12:00] VITALS: BP 156/72; PULSE 74; RESP 16; TEMP 98.3; O2SAT 94
[2016-12-30] MEDS: MUPIROCIN 2% CREAM 15 GM TOPICAL SCH ×2 (13:45→22:39)
[2016-12-30] MEDS: LACTOBACILLUS ACIDOPHILUS 1 GM PACKET PO SCH ×2 (13:45→17:39)
[2016-12-30 16:00] VITALS: BP 173/66; PULSE 80; RESP 18; TEMP 98; O2SAT 92
[2016-12-30 20:00] VITALS: BP 166/74; PULSE 84; RESP 18; TEMP 100.7; O2SAT 92
[2016-12-30] MEDS ORDERED: hydrALAZINE HCL 20 MG/ML VIAL IV PRN (20:30)
[2016-12-31] VITALS (9 sets, daily range): BP systolic 143–182; BP diastolic 68–81; PULSE 72–78; RESP 16–24; TEMP 97.9–98.9; O2SAT 94–96
[2016-12-31] MEDS: VASOPRESSIN INJ 40 UNITS in DEXTROSE 5% IN WATER 100ML INJ 98 ML IV SCH ×2 (01:14)
[2016-12-31] MEDS: AMPICILLIN-SULBACTAM INJ 1,500 MG in SODIUM CHLORIDE 0.9% INJ 100 ML IV SCH ×5 (03:27→21:54)
[2016-12-31] MEDS: CHLORHEXIDINE GLUCONATE 2 % 1 PACK (2 CLOTHS) TOP SCH (04:00)
[2016-12-31 05:59] LABS: AUTOMATED NEUTROPHIL # 2.4 TH/MM3 (1.8-7.7); BASOPHIL % 0.5 % (0.0-2.0); EOSINOPHIL # 0.1 TH/MM3 (0-0.4); EOSINOPHIL % 1.3 % (0.0-4.0); LYMPH % 25.7 % (9.0-44.0); LYMPHOCYTE # 1.1 TH/MM3 (1.0-4.8); MEAN CELL VOLUME 92.4 FL (80.0-100.0); MEAN CORPUSCULAR HEMOGLOBIN 31.8 PG (27.0-34.0); MEAN CORPUSCULAR HGB CONC 34.4 % (32.0-36.0); MONO % 16.8 % (0.0-8.0); NEUT % 55.7 % (16.0-70.0); PLATELET COUNT 83 TH/MM3 (150-450); RED BLOOD COUNT 2.39 MIL/MM3 (4.50-5.90); RED CELL DISTRIBUTION WIDTH 17.1 % (11.6-17.2); WHITE BLOOD COUNT 4.4 TH/MM3 (4.0-11.0)
[2016-12-31 06:01] LABS: HEMO FLAGS AUTO DIFF
[2016-12-31 06:29] LABS: BICARBONATE 26.2 MEQ/L (21.0-32.0); POTASSIUM 4.1 MEQ/L (3.5-5.1)
[2016-12-31] MEDS: INSULIN ASPART SUPPLEMENTAL SCALE SQ SCH ×4 (06:39→20:24)
[2016-12-31 06:43] LABS: PLATELET ESTIMATE SMEAR LOW (NORMAL); PLATELET MORPHOLOGY NORMAL (NORMAL); SCAN/DIFF AUTO DIFF CONFIRMED
[2016-12-31 06:44] LABS: OVALOCYTES 1+ (NORMAL)
[2016-12-31] MEDS ORDERED: diphenhydrAMINE HCL 25 MG CAP PO PRN (07:15)
[2016-12-31] MEDS ORDERED: ACETAMINOPHEN 325 MG TAB PO PRN (07:15)
[2016-12-31] MEDS ORDERED: SODIUM CHLOR 0.9% 250 ML INJ 250 ML IV ONE (07:15)
--- NOTE | 2016-12-31 08:01 | HHI.FPPN ---
Subjective Remarks Patient is doing well this morning. Denies fevers, chills, nausea, vomiting, diarrhea. Patient states he does not have black, red stools. He states his stools are brown in color. (Freddie Barahona MD R2) Objective Vitals Vital Signs Date Time Temp Pulse Resp B/P Pulse Ox O2 Delivery O2 Flow Rate FiO2 12/31/16 00:00 98.9 78 20 159/80 95 12/30/16 23:00 Room Air 12/30/16 20:00 100.7 84 18 166/74 92 12/30/16 16:00 98.0 80 18 173/66 92 12/30/16 12:00 98.3 74 16 156/72 94 12/30/16 08:00 97.9 74 18 165/79 94 I/O 12/30/16 12/30/16 12/30/16 12/31/16 12/31/16 12/31/16 07:00 15:00 23:00 07:00 15:00 23:00 Intake Total 952 ml 1185 ml 480 ml 240 ml Output Total 1150 ml 825 ml 600 ml 400 ml Balance -198 ml 360 ml -120 ml -160 ml Intake Oral 240 ml 600 ml 480 ml 240 ml IV Total 712 ml 585 ml Output Urine Total 1150 ml 825 ml 600 ml 400 ml Bladder Scan Volume Amount 400 ml # Bowel Movements 1 0 0 0 (Freddie Barahona MD R2) Result Diagram: 12/31/1653012/31/16530 Objective Remarks GENERAL: This is a well-nourished, well-developed patient, with some apparent depressed affect SKIN: Warm left lower extremity, venostasis changes of both lower extremities, worse on left with cellulitic changes and pitting edema to knee. small papules lower leg. Left foot wrapped in CHRISTOPHE bandage. HEAD: Atraumatic. Normocephalic. CARDIOVASCULAR: RRR RESPIRATORY: Clear to auscultation. Breath sounds equal bilaterally. No wheezes , rales, or rhonchi. GASTROINTESTINAL: Abdomen soft, non-tender, nondistended. No hepato-splenomegaly , or palpable masses. No guarding. MUSCULOSKELETAL: Status post surgical procedure on the left. Currently wrapped with Christophe bandage. Able to move toes on left. Sensation intact although diminished. Right foot is clear of any lesions. NEUROLOGICAL: Awake and alert. Cranial nerves grossly intact. Sensation diminished in left foot compared to the right, some sensation present in distal left lower extremity. Unable to locate which toe is being touched on the left. (Freddie Barahona MD R2) A/P Assessment and Plan 56-year-old male with a past medical history of complicated type 2 diabetes presented meeting sepsis criteria with diabetic left foot wound. Plan as below. Discharge Planning Pending clinical improvement and specialty recommendations. Case management consulted for discharge needs. Physical therapy recommends PT at rehabilitation or home health care. As of 12/29: Patient would still like to proceed with surgery. (Freddie Barahona MD R2) Attending Attestation Patient seen and examined, discussed with resident team. I agree with assessment and management as documented and discussed with me. Pt without complaints. Await decision from ortho re: timing of BKA. Pt confirms again that he would like to proceed with surgery. (Andie Guerrero MD) Problem List: (1) Diabetic foot ulcer Status: Chronic Plan: Podiatry consulted Infectious disease consult Physical therapy consult Orthopedic surgery consult per podiatry on 12/25 for possible left BKA -12/23: Status post left foot ankle incision drainage debridement partial resection of the 5th metatarsal head. -Intraoperative findings show severe necrosis down to periosteum of the midfoot , abscess severe. -12/25: Multiple specialists including podiatry, orthopedic surgery are recommending amputation. Antibiotics per ID: Unasyn IV every 6 hours (started 12/26) - Per ID, Unasyn IV to be continued until 02/03/2017, date may change as patient is now desiring to proceed with L BKA Wound culture: Staph aureus, enterococcus, mixed anaerobes Blood Cultures positive as listed under sepsis Most recent blood cultures from 12/25 no growth after 5 days Bone pathology left fifth metatarsal showing acute osteomyelitis Antibiotic history: Clindamycin IV now discontinued (12/22-12/28), Zosyn also discontinued (12/22-12/26) (2) Anemia Status: Chronic Plan: Hematology consult Likely due to multiple factors including infection, chronic leg wound. Peripheral smear shows normochromic normocytic anemia Status post 2 units packed red blood cells on 12/22. Status post 2 units packed red blood cells on 12/25. 2 units packed red blood cells ordered on 12/31 Continue to monitor; transfuse when less than 7 Labs: Vitamin B12, B1, folate within normal limits. Iron, TIBC, soluble transferrin receptor pending Hemoccult ordered (3) Diabetes Status: Chronic Plan: -Hemoglobin A1c on 12/11 was 6.9 Sliding scale insulin while in hospital. Patient has had diarrhea on metformin, likely will need to be discontinued as an outpatient and put on glipizide (4) Social issues Status: Acute Plan: Patient lives with his 90-year-old aunt who has dementia and is unable to take care of the patient on discharge. Case management consulted to assist with disposition. (5) Anxiety and depression Status: Acute Plan: -Continue home Abilify 5 mg by mouth daily and Celexa 10 mg by mouth daily -Psychiatry consulted: Diagnosed with dysthymia; he has appropriate follow-up with psychiatry services in the community (6) FEN/DVT PPX/GI PPX Status: Acute Plan: Fluids: Tolerating by mouth Electrolytes: Will monitor and replace as needed Nutrition: Diabetic diet (will place NPO after MN prior to surgery once date is set) DVT Prophylaxis: Fondaparinux started per hematology, now on hold - Recommendation from inpatient pharmacist: recommends holding Fondaparinux for 3-4 days prior to surgery - Last dose of Fondaparinux given 12/30 AM GI Prophylaxis: Famotidine 10 mg IV every 12 hours (7) Sepsis Status: Resolved Plan: Infectious disease consult Vitals currently stable. Sources of sepsis is left foot wound. 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 HIT positive is likely a false positive result Continue to monitor platelets Patient has been started on fondaparinux per hematology Medical history: Heparin discontinued Argatroban discontinued per hematology (Freddie Barahona MD R2) Problem Qualifiers (1) Diabetic foot ulcer: Qualified Code: E11.621 - Diabetic ulcer of toe of left foot associated with type 2 diabetes mellitus, unspecified ulcer stage (2) Anemia: Qualified Code: D64.9 - Anemia, unspecified type (3) Diabetes: Qualified Code: E11.42 - Type 2 diabetes mellitus with diabetic polyneuropathy , without long-term current use of insulin (4) Sepsis: Qualified Code: A41.9 - Sepsis, due to unspecified organism Freddie Barahona MD R2 December 31, 2016 08:01 Andie Guerrero MD December 31, 2016 16:57
[2016-12-31 09:00] LABS: TRANSFERRIN IRON PROFILE 112 MG/DL (200-360)
[2016-12-31] MEDS: CITALOPRAM HYDROBROMIDE 20 MG TAB PO SCH (10:31)
[2016-12-31] MEDS: FAMOTIDINE 20 MG/2 ML VIAL IV PUSH SCH ×2 (10:31→21:53)
[2016-12-31] MEDS: ARIPiprazole 5 MG TAB PO SCH (10:31)
[2016-12-31] MEDS: SODIUM CHLORIDE 0.9% FLUSH 10 ML FLUSH IV FLUSH SCH ×2 (10:32→20:06)
[2016-12-31] MEDS: MUPIROCIN 2% CREAM 15 GM TOPICAL SCH ×2 (10:33→21:00)
[2016-12-31] MEDS: LACTOBACILLUS ACIDOPHILUS 1 GM PACKET PO SCH ×3 (10:37→18:50)
--- NOTE | 2016-12-31 13:48 | HHI.NPPN ---
Subjective General Problems: Anemia Renal Failure: Acute Additional Remarks Patient is alert, no pain in the foot, no SOB. Review of Systems General Constitutional: Fatigue Musculoskeletal MS: Pain/Stiffness Objective Data Data 12/30/16 12/31/16 19:00 07:00 Intake Total 1185 ml 720 ml Output Total 825 ml 1000 ml Balance 360 ml -280 ml Intake Oral 600 ml 720 ml IV Total 585 ml Output Urine Total 825 ml 1000 ml Bladder Scan Volume Amount 400 ml # Bowel Movements 0 0 Vital Signs Date Time Temp Pulse Resp B/P Pulse Ox O2 Delivery O2 Flow Rate FiO2 12/31/16 12:00 98.3 72 16 154/68 96 12/31/16 08:00 98.1 75 18 148/74 96 12/31/16 00:00 98.9 78 20 159/80 95 12/30/16 23:00 Room Air 12/30/16 20:00 100.7 84 18 166/74 92 12/30/16 16:00 98.0 80 18 173/66 92 -: 12/31/16 0531 12/31/16 0531 Medication Review Current Medications Medications (Trade) Dose Ordered Sig/Jeffy Route Start Time Stop Time Status Last Admin (Abilify) 5 mg DAILY PO 12/22/16 09:00 12/31/16 10:31 (NS Flush) 2 ml UNSCH PRN IV FLUSH 12/22/16 01:45 (NS Flush) 2 ml BID IV FLUSH 12/22/16 09:00 12/31/16 10:32 Miscellaneous Information 1 Q361D XX 12/22/16 01:45 12/22/16 01:45 (Chlorhexidine 2% Cloth) Taper DAILY@04 TOP 12/22/16 04:00 12/18/17 03:59 12/28/16 04:00 (Chlorhexidine 2% Cloth) 3 pack UNSCH PRN TOP 12/22/16 01:45 (Tylenol) 650 mg Q6H PRN PO 12/22/16 12:45 12/29/16 21:35 (D50w (Vial) Inj) 25 ml UNSCH PRN IV PUSH 12/22/16 15:45 (Glucagon Inj) 1 mg UNSCH PRN OTHER 12/22/16 15:45 Citalopram Hydrobromide 20 mg 20 mg DAILY PO 12/24/16 09:00 12/31/16 10:31 (Unasyn Inj/NS Inj) 100 ml @ 200 mls/hr Q6H IV 12/26/16 15:00 12/31/16 10:32 (Arixtra Inj) 2.5 mg Q24H SQ 12/28/16 09:00 Hold 12/30/16 08:20 (Pepcid Inj) 20 mg Q12HR IV PUSH 12/30/16 21:00 12/31/16 10:31 (Lactinex Pkt) 1 gm TID PO 12/30/16 13:00 12/31/16 10:37 (Bactroban 2% Cream) 1 applic Q12HR TOPICAL 12/30/16 11:45 12/31/16 10:33 Hydralazine HCl 10 mg 10 mg Q6H PRN IV 12/30/16 20:30 (NS 250 ml Inj) 250 ml @ 15 mls/hr ONCE ONCE IV 12/31/16 07:15 12/31/16 23:54 Physical Exam General Appearance: No Acute Distress, Comfortable Neck Neck Exam: Neck Supple Pulmonary Resp Exam: Clear Bilaterally, Breath Sounds Equal Cardiology CV Exam: Regular, Normal Sinus Rhythm Gastrointestinal/Abdomen GI Exam: Soft, Non-Tender, Bowel Sounds Present Extremeties Extremities Exam: Pitting Edema, Dependent Edema Extremeties Remarks "Wrapped in dressing left leg drainage Neurologic Neuro Exam: Alert, Awake Assessment/Plan Problem List: (1) Acute renal failure superimposed on stage 3 chronic kidney disease Plan: Patient has a kidney ultrasound which was unremarkable Creatinine continue to improve with treatment of infection and hydration Encourage oral intake, off IVF. Avoid Nephrotoxins. Now the Creatinine is 1.2, possibly has underlying chronic kidney disease. Nephrology to see PRN bases pt do not wants L BKA (2) Diabetic foot ulcer Plan: Patient is being followed by Dr. 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
[2017-01-01] VITALS: BP 168/77; PULSE 76; RESP 18; TEMP 98.3; O2SAT 94
[2017-01-01] MEDS: AMPICILLIN-SULBACTAM INJ 1,500 MG in SODIUM CHLORIDE 0.9% INJ 100 ML IV SCH ×4 (02:48→23:50)
[2017-01-01] MEDS: CHLORHEXIDINE GLUCONATE 2 % 1 PACK (2 CLOTHS) TOP SCH (04:00)
[2017-01-01] MEDS: INSULIN ASPART SUPPLEMENTAL SCALE SQ SCH ×4 (05:57→23:25)
[2017-01-01 06:56] LABS: AUTOMATED NEUTROPHIL # 3.3 TH/MM3 (1.8-7.7); BASOPHIL % 0.4 % (0.0-2.0); EOSINOPHIL % 0.8 % (0.0-4.0); HEMATOCRIT 29.9 % (39.0-51.0); HEMO FLAGS DIFF FINAL; LYMPH % 24.6 % (9.0-44.0); LYMPHOCYTE # 1.4 TH/MM3 (1.0-4.8); MEAN CELL VOLUME 91.9 FL (80.0-100.0); MEAN CORPUSCULAR HEMOGLOBIN 30.1 PG (27.0-34.0); MEAN CORPUSCULAR HGB CONC 32.8 % (32.0-36.0); MONO % 15.7 % (0.0-8.0); NEUT % 58.5 % (16.0-70.0); PLATELET COUNT 118 TH/MM3 (150-450); RED BLOOD COUNT 3.26 MIL/MM3 (4.50-5.90); RED CELL DISTRIBUTION WIDTH 17.3 % (11.6-17.2); WHITE BLOOD COUNT 5.6 TH/MM3 (4.0-11.0)
[2017-01-01 07:11] LABS: INTERNATIONAL NORMALIZED RATIO 1.1 RATIO; PROTHROMBIN TIME - PATIENT 12.1 SEC (9.8-11.6)
[2017-01-01 07:37] LABS: BICARBONATE 26.7 MEQ/L (21.0-32.0)
[2017-01-01 07:38] LABS: POTASSIUM 4.7 MEQ/L (3.5-5.1)
--- NOTE | 2017-01-01 07:46 | PD.ORT.PN ---
Subjective Subjective Remarks Patient sitting upright in bed, awake and alert and answering questions appropriately. He complains of continued left lower extremity discomfort. At this time he is willing to proceed forward with [facility]. No other complaints. Objective Vitals Vital Signs Date Time Temp Pulse Resp B/P Pulse Ox O2 Delivery O2 Flow Rate FiO2 01/01/17 00:00 98.3 76 18 168/77 94 12/31/16 20:00 98.9 76 20 182/81 95 12/31/16 19:00 98.1 75 20 182/81 95 12/31/16 18:35 98.8 74 17 143/77 95 12/31/16 16:00 98.3 72 16 154/68 96 12/31/16 14:32 98.1 73 16 145/75 95 12/31/16 13:41 97.9 75 24 180/79 94 12/31/16 12:00 98.3 72 16 154/68 96 12/31/16 08:00 98.1 75 18 148/74 96 I/O 12/31/16 12/31/16 12/31/16 01/01/17 01/01/17 01/01/17 07:00 15:00 23:00 07:00 15:00 23:00 Intake Total 240 ml 600 ml 830 ml 340 ml Output Total 400 ml 1100 ml 600 ml 700 ml Balance -160 ml -500 ml 230 ml -360 ml Intake Oral 240 ml 600 ml 480 ml 240 ml IV Total 100 ml Packed Cells 350 ml Output Urine Total 400 ml 1100 ml 600 ml 700 ml # Bowel Movements 0 1 0 0 Result Diagram: 01/01/17 0540 12/31/16 0531 Other Results Laboratory Tests Test 01/01/17 05:40 Prothrombin Time 12.1 SEC (9.8-11.6) Prothromb Time International 1.1 RATIO Ratio Imaging Last Impressions Renal Ultrasound 12/25/16 0000 Signed Impressions: Service Date/Time: Sunday, December 25, 2016 13:28 - CONCLUSION: 1. Unremarkable ultrasound examination of the kidneys. Hang Lin MD Foot X-Ray 12/23/16 0000 Signed Impressions: Service Date/Time: Friday, December 23, 2016 09:40 - CONCLUSION: Soft tissue swelling and post surgical changes. Laureano Grider MD Foot MRI 12/22/16 0000 Signed Impressions: Service Date/Time: Thursday, December 22, 2016 16:49 - CONCLUSION: 1. Diffuse marrow edema involving the remaining portion of the left 5th metatarsal with extensive overlying soft-tissue swelling. The findings raise the possibility of osteomyelitis of the 5th metatarsal and overlying cellulitis. Clinical correlation is recommended. 2. Questionable nondisplaced fractures involving the bases of the left 3rd and 4th metatarsals with some associated marrow edema. Shade Kee MD Chest X-Ray 12/21/160 Signed Impressions: Service Date/Time: Wednesday, December 21, 2016 22:20 - CONCLUSION: No acute disease. Paramjit Bae MD Objective Remarks LLE: The examination is limited as the patient has a dressing in place. It does appear the erythema, edema and soft tissue changes has increased proximally up the leg. A description of the wound was reviewed in the medical record. He has exposed bone extending from the toe to the ankle. There is drainage. The patient has a restricted active range of motion of the ankle which is minimally tender. Decreased sensation of the toes. There is moderate edema of the calf with discoloration anteriorly and small blisters present with dried drainage on the bed sheet. The calf is soft to palpation with mild discomfort. Assessment & Plan Problem List: (1) Osteomyelitis of left foot (2) Sepsis (3) Anaerobic bacterial infection (4) Cellulitis (5) Diabetes (6) Hyperlipidemia Assessment and Plan A lengthy discussion was had with the patient, explaining the benefits and risks to surgery once more. The options for treatment were discussed and all questions were answered. The nature of the planned surgical procedure, the risks, the benefits as well as postoperative expectations have been discussed with the patient in detail. In addition, alternatives of the treatment and risks were discussed. The patient acknowledges full understanding and consents to it. At this time he is consenting for left below knee amputation. We would like to proceed forward with surgical treatment today as long as patient is medically cleared. All his questions were answered to his satisfaction. Strict NPO. Consents on chart. Pt marked. Amaris Vidal January 01, 2017 07:46
[2017-01-01 08:00] VITALS: BP 157/75; PULSE 73; RESP 16; TEMP 96.8; O2SAT 95
--- NOTE | 2017-01-01 08:33 | HHI.FPPN ---
Subjective Remarks Patient is doing well this morning. He met with the registered nurse first assistant this morning. He would like further information before proceeding with surgery. Denies fever, chills, nausea, vomiting, shortness of breath. (Freddie Barahona MD R2) Objective Vitals Vital Signs Date Time Temp Pulse Resp B/P Pulse Ox O2 Delivery O2 Flow Rate FiO2 01/01/17 00:00 98.3 76 18 168/77 94 12/31/16 20:00 98.9 76 20 182/81 95 12/31/16 19:00 98.1 75 20 182/81 95 12/31/16 18:35 98.8 74 17 143/77 95 12/31/16 16:00 98.3 72 16 154/68 96 12/31/16 14:32 98.1 73 16 145/75 95 12/31/16 13:41 97.9 75 24 180/79 94 12/31/16 12:00 98.3 72 16 154/68 96 I/O 12/31/16 12/31/16 12/31/16 01/01/17 01/01/17 01/01/17 07:00 15:00 23:00 07:00 15:00 23:00 Intake Total 240 ml 600 ml 830 ml 340 ml Output Total 400 ml 1100 ml 600 ml 700 ml Balance -160 ml -500 ml 230 ml -360 ml Intake Oral 240 ml 600 ml 480 ml 240 ml IV Total 100 ml Packed Cells 350 ml Output Urine Total 400 ml 1100 ml 600 ml 700 ml # Bowel Movements 0 1 0 0 (Fredide Barahona MD R2) Result Diagram: 01/01/17 0540 01/01/17 0540 Objective Remarks GENERAL: This is a well-nourished, well-developed patient, with some apparent depressed affect SKIN: Warm left lower extremity, venostasis changes of both lower extremities, worse on left with cellulitic changes and pitting edema to knee. small papules lower leg. Left foot wrapped in CHRISTOPHE bandage. HEAD: Atraumatic. Normocephalic. CARDIOVASCULAR: RRR RESPIRATORY: Clear to auscultation. Breath sounds equal bilaterally. No wheezes , rales, or rhonchi. GASTROINTESTINAL: Abdomen soft, non-tender, nondistended. No hepato-splenomegaly , or palpable masses. No guarding. MUSCULOSKELETAL: Status post surgical procedure on the left. Currently wrapped with Christophe bandage. Able to move toes on left. Sensation intact although diminished. Right foot is clear of any lesions. NEUROLOGICAL: Awake and alert. Cranial nerves grossly intact. Sensation diminished in left foot compared to the right, some sensation present in distal left lower extremity. Unable to locate which toe is being touched on the left. (Freddie Barahona MD R2) A/P Assessment and Plan 56-year-old male with a past medical history of complicated type 2 diabetes presented meeting sepsis criteria with diabetic left foot wound. Plan as below. Discharge Planning Pending clinical improvement and specialty recommendations. Case management consulted for discharge needs. Physical therapy recommends PT at rehabilitation or home health care. As of 12/29: Patient would still like to proceed with surgery. (Freddie Barahona MD R2) Attending Attestation Patient seen and examined, discussed with resident team. I agree with assessment and management as documented and discussed with me. Pt without complaints. Await decision re: timing of BKA by ortho. (Andie Guerrero MD) Problem List: (1) Diabetic foot ulcer Status: Chronic Plan: Podiatry consulted Infectious disease consult Physical therapy consult Orthopedic surgery consult per podiatry on 12/25 for possible left BKA -12/23: Status post left foot ankle incision drainage debridement partial resection of the 5th metatarsal head. -Intraoperative findings show severe necrosis down to periosteum of the midfoot , abscess severe. -12/25: Multiple specialists including podiatry, orthopedic surgery are recommending amputation. Antibiotics per ID: Unasyn IV every 6 hours (started 12/26) - Per ID, Unasyn IV to be continued until 02/03/2017, date may change as patient is now desiring to proceed with L BKA Wound culture: Staph aureus, enterococcus, mixed anaerobes Blood Cultures positive as listed under sepsis Most recent blood cultures from 12/25 no growth after 5 days Bone pathology left fifth metatarsal showing acute osteomyelitis Antibiotic history: Clindamycin IV now discontinued (12/22-12/28), Zosyn also discontinued (12/22-12/26) (2) Anemia Status: Chronic Plan: Hematology consult Likely secondary to chronic infection. Peripheral smear shows normochromic normocytic anemia Status post 2 units packed red blood cells on 12/22. Status post 2 units packed red blood cells on 12/25. Status post 2 units packed red blood cells on 12/31 Continue to monitor; transfuse when less than 7 Labs: Vitamin B12, B1, folate within normal limits. Iron, TIBC indicative of chronic inflammation. Hemoccult ordered (3) Diabetes Status: Chronic Plan: -Hemoglobin A1c on 12/11 was 6.9 Sliding scale insulin while in hospital. Patient has had diarrhea on metformin, likely will need to be discontinued as an outpatient and put on glipizide (4) Social issues Status: Acute Plan: Patient lives with his 90-year-old aunt who has dementia and is unable to take care of the patient on discharge. Case management consulted to assist with disposition. (5) Anxiety and depression Status: Acute Plan: -Continue home Abilify 5 mg by mouth daily and Celexa 10 mg by mouth daily -Psychiatry consulted: Diagnosed with dysthymia; he has appropriate follow-up with psychiatry services in the community (6) FEN/DVT PPX/GI PPX Status: Acute Plan: Fluids: IV fluids at maintenance while patient is nothing by mouth Electrolytes: Will monitor and replace as needed Nutrition: Nothing by mouth except meds for possible surgery today. Diabetic diet after surgery. DVT Prophylaxis: Fondaparinux started per hematology (on hold since 12/30 for expected surgery). Okay from hematology to proceed with surgery. Okay from hematology to be on heparin prophylactically because of false positive HIT. GI Prophylaxis: Famotidine 10 mg IV every 12 hours (7) Sepsis Status: Resolved Plan: Infectious disease consult Vitals currently stable. Sources of sepsis is left foot wound. 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 HIT positive is likely a false positive result Continue to monitor platelets Patient has been started on fondaparinux per hematology Medical history: Heparin discontinued Argatroban discontinued per hematology (Freddie Barahona MD R2) Problem Qualifiers (1) Diabetic foot ulcer: Qualified Code: E11.621 - Diabetic ulcer of toe of left foot associated with type 2 diabetes mellitus, unspecified ulcer stage (2) Anemia: Qualified Code: D64.9 - Anemia, unspecified type (3) Diabetes: Qualified Code: E11.42 - Type 2 diabetes mellitus with diabetic polyneuropathy , without long-term current use of insulin (4) Sepsis: Qualified Code: A41.9 - Sepsis, due to unspecified organism Freddie Barahona MD R2 January 01, 2017 08:33 Andie Guerrero MD January 01, 2017 15:52
[2017-01-01] MEDS: SODIUM CHLORIDE 0.9% FLUSH 10 ML FLUSH IV FLUSH SCH (09:16)
[2017-01-01] MEDS: SODIUM CHLOR 0.9% 1000 ML INJ 1,000 ML IV SCH ×2 (09:16→13:35)
[2017-01-01] MEDS: LACTOBACILLUS ACIDOPHILUS 1 GM PACKET PO SCH ×3 (09:16→18:00)
[2017-01-01] MEDS: FAMOTIDINE 20 MG/2 ML VIAL IV PUSH SCH ×2 (09:17→21:00)
[2017-01-01] MEDS: CITALOPRAM HYDROBROMIDE 20 MG TAB PO SCH (09:17)
[2017-01-01] MEDS: ARIPiprazole 5 MG TAB PO SCH (09:17)
[2017-01-01] MEDS: MUPIROCIN 2% CREAM 15 GM TOPICAL SCH ×2 (09:18→21:00)
[2017-01-01] MEDS ORDERED: PROPOFOL 200 MG/20 ML AMP IV ONE (10:09)
[2017-01-01] MEDS ORDERED: ePHEDrine/NS 25 MG/5 ML SYR IV ONE (10:09)
[2017-01-01] MEDS ORDERED: LACTATED RINGER'S 1000 ML INJ 1,000 ML IV ONE (10:09)
[2017-01-01] MEDS ORDERED: ONDANSETRON HCL 4 MG/2 ML VIAL IV PUSH ONE (10:09)
[2017-01-01 12:00] VITALS: BP 168/78; PULSE 71; RESP 16; TEMP 98.7; O2SAT 96
[2017-01-01 16:00] VITALS: BP 175/81; PULSE 73; RESP 17; TEMP 96.9; O2SAT 96
[2017-01-01] MEDS ORDERED: hydrALAZINE HCL 10 MG TAB PO PRN (18:30)
[2017-01-01] MEDS: cloNIDine HCL 0.1 MG TAB PO PRN (18:48)
[2017-01-01] MEDS ORDERED: fentaNYL CITRATE 250 MCG/5 ML AMP ONE (19:15)
[2017-01-01] MEDS: LACTATED RINGER'S 1000 ML INJ 1,000 ML IV SCH (22:12)
--- NOTE | 2017-01-01 22:13 | PD.OP ---
cc: Tang Moctezuma MD Operative Report Date of Surgery: January 01, 2017 Preoperative Diagnosis: (1) Osteomyelitis of left foot (2) Cellulitis Postoperative Diagnosis: (1) Osteomyelitis of left foot (2) Cellulitis Procedure: Left below-knee amputation Anesthesia: Gen. Surgeon: Tang Moctezuma Embedded Case Manager(s): Amaris Vidal PA-C ([place]) The surgical procedure was assisted by my physician's hotel assistant general manager. Her presence was necessary throughout the case for manipulation and positioning of the surgical extremity. My PA was assisting me throughout the duration of this procedure. The skill set of the physician hotel assistant general manager was medically necessary to complete this procedure. During the surgical case the refresh technician was working at the back table and the physician hotel assistant general manager was directly assisting me. Operation and Findings: Indications: This 56-year-old males long history of a diabetic foot ulceration. The patient has had progressive changes and has been unresponsive to treatment including debridement and wound care. He is now noted to have extensive osteomyelitis and wound over the lateral aspect of the foot extending to the ankle with exposed bone. It has been determined not to be salvageable by his treating wound care physician's and podiatry. The undersigned was therefore consulted for amputation. The patient was initially not willing to consent to the procedure however now wishes to proceed. Procedure and findings: The patient was taken to the operative suite and after undergoing an adequate level of general anesthesia was kept supine on the operating table. The left lower extremity was then prepped and draped in usual sterile fashion with alcohol and Hibiclens. The foot had a large soft tissue defect over the lateral aspect with exposed bone, tendon and malodorous drainage. The foot was isolated. A standard below-knee amputation incision was made with a posterior flap. The transverse incision was made approximately 15 cm distal to the joint line. This was carried to the mid sagittal plane on the medial and lateral aspects. Incision was then carried longitudinally extending distally and transversely posteriorly connecting the incisions. Incision was carried through skin and subcutaneous tense tissue and fascia with a knife. Attention was first focused in the anterior compartment and muscle dissection was carried out exposing the neurovascular bundle. The vessels were identified and isolated and tagged cut and tied. The peroneal nerve was retracted into the wound and cut flushed allowing it to retract back into the muscle. The fibula was then exposed. Medial dissection was then carried out. The great saphenous vein was identified and ligated. Subcutaneous also dissection was carried out over the tibia circumferentially. With skin retraction an osteotomy was made with a saw. The anterior aspect was beveled with the saw as well and the borders rasped smooth. A fibular osteotomy was then made approximately 1/2 cm proximal to the tibial osteotomy. A bone hook was then placed into the tibia and the tibia retracted anteriorly. An amputation knife was then utilized to remove the leg. The soleus fascia was identified and the posterior compartment dissected free. The posterior tibial neurovascular bundle was identified. The vessels were isolated and tagged tied and cut. The peroneal nerve was retracted and cut flush with the incision to allow retraction into the muscle. The peroneal neurovascular bundle was identified and treated in a similar fashion. The posterior flap was then molded. The patient had significant edematous tissue. The deep compartment was relatively avascular. There was no purulence. It was dissected free and fashioned to allow closure over the tibia. The Achilles tendon fascia was brought to the anterior tibial periosteum. Excess tissue was excised sharply. The tourniquet was then released and hemostasis obtained. The wound was thoroughly irrigated. A Hemovac drain was left in place. It was subsequently closed in layers utilizing #1 Vicryl on the fascial layer, 0 Vicryl suture on the deep tissue, 2-0 Vicryl suture in subcutaneous tense tissue and 2-0 nylon on the skin. Sterile dressings were applied the patient was placed in a splint , awakened, transferred to hospital bed and taken to the recovery room in stable condition. Estimated blood loss: 500 cc Complications: None Tourniquet time: 39 minutes Tang Moctezuma MD January 01, 2017 22:12
[2017-01-01] MEDS ORDERED: MORPHINE SULFATE 8 MG/ML INJ IV PUSH PRN (22:15)
[2017-01-01] MEDS ORDERED: MAGNESIUM HYDROXIDE SUSP 30 ML CUP PO PRN (22:15)
[2017-01-01] MEDS ORDERED: MISCELLANEOUS NURSING INFORMATION XX PRN (22:15)
[2017-01-01] MEDS ORDERED: SODIUM CHLORIDE 0.9% FLUSH 10 ML FLUSH IV FLUSH PRN (22:15)
[2017-01-01] MEDS ORDERED: ALUMINUM/MAGNESIUM/SIMETH 30 ML CUP PO PRN (22:15)
[2017-01-01] MEDS ORDERED: ACETAMINOPHEN 325 MG TAB PO PRN (22:15)
[2017-01-01] MEDS ORDERED: oxyCODONE/ACETAMINOPHEN 5 MG/325 MG TAB PO PRN (22:15)
[2017-01-01] MEDS ORDERED: BISACODYL 10 MG SUPP RECTAL PRN (22:15)
[2017-01-01] MEDS ORDERED: ONDANSETRON HCL 4 MG/2 ML VIAL IVP PRN (22:15)
[2017-01-01] MEDS ORDERED: TEMAZEPAM 15 MG CAP PO PRN (22:15)
[2017-01-01] MEDS ORDERED: NALOXONE HCL 0.4 MG/ML AMP IV PRN (22:15)
[2017-01-01] MEDS ORDERED: POVIDONE IODINE 10% SOLN 118 ML BOTTLE TOPICAL PRN (22:15)
[2017-01-01] MEDS ORDERED: MISCELLANEOUS PHARMACY INFORMATION XX ONE (22:24)
[2017-01-01] MEDS ORDERED: DO NOT ADM ANY ANTICOAGULANT DRUGS PRN (23:15)
[2017-01-01] MEDS: MORPHINE SULFATE 30 MG/30 ML PCA IV SCH (23:27)
[2017-01-01 23:33] LABS: HEMATOCRIT 26.7 % (39.0-51.0)
[2017-01-01 23:42] LABS: REVIEW FLAG FINAL
[2017-01-02] VITALS (7 sets, daily range): BP systolic 117–148; BP diastolic 59–76; PULSE 73–83; RESP 16–20; TEMP 96.1–100.7; O2SAT 94–98
[2017-01-02] MEDS: AMPICILLIN-SULBACTAM INJ 1,500 MG in SODIUM CHLORIDE 0.9% INJ 100 ML IV SCH (03:00)
[2017-01-02] MEDS: CHLORHEXIDINE GLUCONATE 2 % 1 PACK (2 CLOTHS) TOP SCH (04:00)
[2017-01-02 05:34] LABS: AUTOMATED NEUTROPHIL # 4.5 TH/MM3 (1.8-7.7); BASOPHIL % 0.2 % (0.0-2.0); EOSINOPHIL % 0.6 % (0.0-4.0); HEMATOCRIT 24.8 % (39.0-51.0); LYMPH % 15.5 % (9.0-44.0); MEAN CELL VOLUME 91.8 FL (80.0-100.0); MEAN CORPUSCULAR HEMOGLOBIN 30.9 PG (27.0-34.0); MEAN CORPUSCULAR HGB CONC 33.7 % (32.0-36.0); MONO % 12.7 % (0.0-8.0); PLATELET COUNT 92 TH/MM3 (150-450); RED CELL DISTRIBUTION WIDTH 17.1 % (11.6-17.2); WHITE BLOOD COUNT 6.4 TH/MM3 (4.0-11.0)
[2017-01-02 05:42] LABS: HEMO FLAGS AUTO DIFF
[2017-01-02 05:56] LABS: BICARBONATE 26.4 MEQ/L (21.0-32.0); POTASSIUM 4.5 MEQ/L (3.5-5.1)
[2017-01-02] MEDS: PCA - TOTAL MG MORPHINE DELIVERED PER SHIFT SCH ×3 (06:00→20:44)
[2017-01-02] MEDS: INSULIN ASPART SUPPLEMENTAL SCALE SQ SCH ×4 (06:41→20:53)
--- NOTE | 2017-01-02 07:42 | PD.ORT.PN ---
Subjective Post Op Day #: 1 Subjective Remarks Patient sitting upright in bed, awake and alert and answering questions appropriately. He admits his left lower extremity is 'aching'. No other complaints at this time. All questions answered. (Amaris Vidal) Objective Vitals Vital Signs Date Time Temp Pulse Resp B/P Pulse Ox O2 Delivery O2 Flow Rate FiO2 01/02/17 06:00 18 01/02/17 04:00 96.1 76 20 147/76 97 01/02/17 00:20 Nasal Cannula 2.00 01/02/17 00:05 97.6 72 18 178/87 95 Nasal Cannula 2 01/02/17 00:00 96.4 73 20 148/69 98 01/01/17 23:45 93 22 167/81 95 Nasal Cannula 2 01/01/17 23:30 71 22 165/86 96 Nasal Cannula 2 01/01/17 23:27 14 01/01/17 23:15 74 14 164/80 96 Nasal Cannula 2 01/01/17 23:00 73 14 168/67 96 Nasal Cannula 2 01/01/17 22:45 76 14 152/70 99 Nasal Cannula 2 01/01/17 22:32 97.9 76 12 169/83 99 Simple Mask 10 01/01/17 16:00 96.9 73 17 175/81 96 01/01/17 12:00 98.7 71 16 168/78 96 01/01/17 09:05 Room Air 01/01/17 08:00 96.8 73 16 157/75 95 I/O 01/01/17 01/01/17 01/01/17 01/02/17 01/02/17 01/02/17 07:00 15:00 23:00 07:00 15:00 23:00 Intake Total 340 ml 528 ml 1500 ml 733 ml Output Total 700 ml 2675 ml 2200 ml 430 ml Balance -360 ml -2147 ml -700 ml 303 ml Intake Oral 240 ml 0 ml 0 ml 240 ml IV Total 100 ml 528 ml 493 ml Other 1500 ml Output Urine Total 700 ml 2675 ml 1100 ml 400 ml Drainage Total 30 ml Estimated Blood Loss 500 ml Other 600 ml # Bowel Movements 0 0 (Amaris Vidal) Result Diagram: 01/02/1744101/02/17 044 Other Results Laboratory Tests Test 12/31/16 01/01/17 01/01/17 01/02/17 08:22 05:40 23:12 04:42 Blood Type O POSITIVE Antibody Screen NEGATIVE Crossmatch Leukocyte-Reduced Red Blood Cells Blood Bank Comment White Blood Count 5.6 TH/MM3 6.4 TH/MM3 Red Blood Count 3.26 MIL/MM3 2.70 MIL/MM3 Hemoglobin 9.8 GM/DL 9.0 GM/DL 8.4 GM/DL Hematocrit 29.9 % 26.7 % 24.8 % Mean Corpuscular Volume 91.9 FL 91.8 FL Mean Corpuscular Hemoglobin 30.1 PG 30.9 PG Mean Corpuscular Hemoglobin 32.8 % 33.7 % Concent Red Cell Distribution Width 17.3 % 17.1 % Platelet Count 118 TH/MM3 92 TH/MM3 Mean Platelet Volume 10.6 FL 9.6 FL Neutrophils (%) (Auto) 58.5 % 71.0 % Lymphocytes (%) (Auto) 24.6 % 15.5 % Monocytes (%) (Auto) 15.7 % 12.7 % Eosinophils (%) (Auto) 0.8 % 0.6 % Basophils (%) (Auto) 0.4 % 0.2 % Neutrophils # (Auto) 3.3 TH/MM3 4.5 TH/MM3 Lymphocytes # (Auto) 1.4 TH/MM3 1.0 TH/MM3 Monocytes # (Auto) 0.9 TH/MM3 0.8 TH/MM3 Eosinophils # (Auto) 0.0 TH/MM3 0.0 TH/MM3 Basophils # (Auto) 0.0 TH/MM3 0.0 TH/MM3 CBC Comment DIFF FINAL AUTO DIFF Differential Comment Prothrombin Time 12.1 SEC Prothromb Time International 1.1 RATIO Ratio Sodium Level 137 MEQ/L 138 MEQ/L Potassium Level 4.7 MEQ/L 4.5 MEQ/L Chloride Level 104 MEQ/L 105 MEQ/L Carbon Dioxide Level 26.7 MEQ/L 26.4 MEQ/L Anion Gap 6 MEQ/L 7 MEQ/L Blood Urea Nitrogen 22 MG/DL 21 MG/DL Creatinine 1.40 MG/DL 1.35 MG/DL Estimat Glomerular Filtration 52 ML/MIN 54 ML/MIN Rate Random Glucose 121 MG/DL 162 MG/DL Calcium Level 8.0 MG/DL 8.0 MG/DL Imaging Last Impressions Renal Ultrasound 12/25/16 0000 Signed Impressions: Service Date/Time: Sunday, December 25, 2016 13:28 - CONCLUSION: 1. Unremarkable ultrasound examination of the kidneys. Hang Lin MD Foot X-Ray 12/23/16 0000 Signed Impressions: Service Date/Time: Friday, December 23, 2016 09:40 - CONCLUSION: Soft tissue swelling and post surgical changes. Laureano Grider MD Foot MRI 12/22/16 0000 Signed Impressions: Service Date/Time: Thursday, December 22, 2016 16:49 - CONCLUSION: 1. Diffuse marrow edema involving the remaining portion of the left 5th metatarsal with extensive overlying soft-tissue swelling. The findings raise the possibility of osteomyelitis of the 5th metatarsal and overlying cellulitis. Clinical correlation is recommended. 2. Questionable nondisplaced fractures involving the bases of the left 3rd and 4th metatarsals with some associated marrow edema. Shade Kee MD Chest X-Ray 12/21/160 Signed Impressions: Service Date/Time: Wednesday, December 21, 2016 22:20 - CONCLUSION: No acute disease. Paramjit Bae MD Procedures Left below-knee amputation (01/01/17) Objective Remarks LLE: BKA. Dressing / splint dry and intact. + drain. Tender to palpation with mild swelling around incision site. No specific area of tenderness over stump. Skin is warm. Neurovascular intact. (Amaris Vidal) Assessment & Plan Ortho Post Op Day #: 1 Problem List: (1) Osteomyelitis of left foot (2) Sepsis (3) Anaerobic bacterial infection (4) Cellulitis (5) Diabetes (6) Hyperlipidemia Assessment and Plan Left below-knee amputation POD #1. Ortho status stable. Dressing changes POD #2. Progress rehab / Non w/b LLE Arixta DVT prophylaxis Continue pain control / bowel regimen Discharge planning - CM for C vs rehab (Amaris Vidal) Assessment and Plan The exam, history, and the medical decision-making described in the above note were completed with the assistance of the mid-level provider. I reviewed and agree with the findings presented. (Tang Moctezuma MD) Amaris Vidal January 02, 2017 07:42 Tang Moctezuma MD January 04, 2017 06:42
[2017-01-02 08:08] LABS: PLATELET ESTIMATE SMEAR LOW (NORMAL); PLATELET MORPHOLOGY NORMAL (NORMAL); SCAN/DIFF AUTO DIFF CONFIRMED
[2017-01-02 08:40] LABS: SOLUBLE TRANSFERRIN RECEPTOR 1.3 mg/L (1.8 - 4.6)
--- NOTE | 2017-01-02 08:47 | HHI.FPPN ---
Subjective Remarks Postoperative day #1 status post left BKA. Patient's only complaint is pain at the site. He has a PEDIATRIC RN pump which is helping. He ate breakfast. Denies fever , chills, nausea, vomiting. (Freddie Barahona MD R2) Objective Vitals Vital Signs Date Time Temp Pulse Resp B/P Pulse Ox O2 Delivery O2 Flow Rate FiO2 01/02/17 08:00 97.8 74 18 139/66 97 01/02/17 07:48 Nasal Cannula 2.00 01/02/17 06:00 18 01/02/17 04:00 96.1 76 20 147/76 97 01/02/17 00:20 Nasal Cannula 2.00 01/02/17 00:05 97.6 72 18 178/87 95 Nasal Cannula 2 01/02/17 00:00 96.4 73 20 148/69 98 01/01/17 23:45 93 22 167/81 95 Nasal Cannula 2 01/01/17 23:30 71 22 165/86 96 Nasal Cannula 2 01/01/17 23:27 14 01/01/17 23:15 74 14 164/80 96 Nasal Cannula 2 01/01/17 23:00 73 14 168/67 96 Nasal Cannula 2 01/01/17 22:45 76 14 152/70 99 Nasal Cannula 2 01/01/17 22:32 97.9 76 12 169/83 99 Simple Mask 10 01/01/17 16:00 96.9 73 17 175/81 96 01/01/17 12:00 98.7 71 16 168/78 96 01/01/17 09:05 Room Air I/O 01/01/17 01/01/17 01/01/17 01/02/17 01/02/17 01/02/17 07:00 15:00 23:00 07:00 15:00 23:00 Intake Total 340 ml 528 ml 1500 ml 733 ml Output Total 700 ml 2675 ml 2200 ml 430 ml Balance -360 ml -2147 ml -700 ml 303 ml Intake Oral 240 ml 0 ml 0 ml 240 ml IV Total 100 ml 528 ml 493 ml Other 1500 ml Output Urine Total 700 ml 2675 ml 1100 ml 400 ml Drainage Total 30 ml Estimated Blood Loss 500 ml Other 600 ml Bladder Scan Volume Amount 400 ml # Bowel Movements 0 0 (Freddie Barahona MD R2) Result Diagram: 01/02/17 0442 01/02/17 044 Objective Remarks GENERAL: This is a well-nourished, well-developed patient, with some apparent depressed affect SKIN: Status post left BKA. Currently wrapped per wound care. HEAD: Atraumatic. Normocephalic. CARDIOVASCULAR: RRR RESPIRATORY: Clear to auscultation. Breath sounds equal bilaterally. No wheezes , rales, or rhonchi. GASTROINTESTINAL: Abdomen soft, non-tender, nondistended. No hepato-splenomegaly , or palpable masses. No guarding. MUSCULOSKELETAL: Status post left BKA. NEUROLOGICAL: Awake and alert. Cranial nerves grossly intact. Sensation diminished in left foot compared to the right, some sensation present in distal left lower extremity. Unable to locate which toe is being touched on the left. (Freddie Barahona MD R2) A/P Assessment and Plan 56-year-old male with a past medical history of complicated type 2 diabetes presented meeting sepsis criteria with diabetic left foot wound. Postop day #1 status post left BKA. Discharge Planning Pending orthopedic surgery recommendations. Case management consulted for discharge needs. Physical therapy consult (Freddie Barahona MD R2) Attending Attestation Patient seen, and examined, discussed with resident team. I agree with assessment and management as documented and discussed with me. Pt reports 5/10 pain currently. He feels his PEDIATRIC RN is working well and does not feel it needs to be adjusted. Appreciate ortho. (Andie Guerrero MD) Problem List: (1) Diabetic foot ulcer Status: Chronic Plan: Podiatry consulted Infectious disease consult Physical therapy consult Orthopedic surgery consult Postop day #1 status post left BKA Dressing changes on postoperative day #2. Nonweightbearing left lower extremity. DVT prophylaxis per Orth as below. Antibiotics: Per infectious disease on 01/02-IV antibiotics can be discontinued and patient can be placed on by mouth Augmentin. Augmentin 875 mg every 12 hours (started 01/02) for a 5 day course. Antibiotic history: Clindamycin IV now discontinued (12/22-12/28), Zosyn also discontinued (12/22-12/26) Antibiotics per ID: Unasyn IV every 6 hours ( 12/26-01/01) History: -12/23: Status post left foot ankle incision drainage debridement partial resection of the 5th metatarsal head. -Intraoperative findings of metatarsal resection show severe necrosis down to periosteum of the midfoot, abscess severe. Wound culture: Staph aureus, enterococcus, mixed anaerobes Blood Cultures positive as listed under sepsis Most recent blood cultures from 12/25 no growth after 5 days Bone pathology left fifth metatarsal showing acute osteomyelitis (2) Anemia Status: Chronic Plan: Hematology consult Likely secondary to chronic infection. Peripheral smear shows normochromic normocytic anemia Status post 2 units packed red blood cells on 12/22. Status post 2 units packed red blood cells on 12/25. Status post 2 units packed red blood cells on 12/31 Continue to monitor; transfuse when less than 7 Labs: Vitamin B12, B1, folate within normal limits. Iron, TIBC indicative of chronic inflammation. Hemoccult ordered (3) Diabetes Status: Chronic Plan: -Hemoglobin A1c on 12/11 was 6.9 Sliding scale insulin while in hospital. Patient has had diarrhea on metformin, likely will need to be discontinued as an outpatient and put on glipizide (4) Social issues Status: Acute Plan: Patient lives with his 90-year-old aunt who has dementia and is unable to take care of the patient on discharge. Case management consulted to assist with disposition. (5) Anxiety and depression Status: Acute Plan: -Continue home Abilify 5 mg by mouth daily and Celexa 10 mg by mouth daily -Psychiatry consulted: Diagnosed with dysthymia; he has appropriate follow-up with psychiatry services in the community (6) FEN/DVT PPX/GI PPX Status: Acute Plan: Fluids: LR at 80 ML's per hour. Electrolytes: Will monitor and replace as needed Nutrition: Diabetic diet DVT Prophylaxis: Fondaparinux per orthopedic surgery. Okay from hematology to be on heparin prophylactically because of false positive HIT. GI Prophylaxis: Famotidine 10 mg IV every 12 hours (7) Sepsis Status: Resolved Plan: Infectious disease consult Vitals currently stable. Sources of sepsis is left foot wound. 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 HIT positive is likely a false positive result Continue to monitor platelets Patient has been started on fondaparinux per hematology Medical history: Heparin discontinued Argatroban discontinued per hematology (Freddie Barahona MD R2) Problem Qualifiers (1) Diabetic foot ulcer: Qualified Code: E11.621 - Diabetic ulcer of toe of left foot associated with type 2 diabetes mellitus, unspecified ulcer stage (2) Anemia: Qualified Code: D64.9 - Anemia, unspecified type (3) Diabetes: Qualified Code: E11.42 - Type 2 diabetes mellitus with diabetic polyneuropathy , without long-term current use of insulin (4) Sepsis: Qualified Code: A41.9 - Sepsis, due to unspecified organism Freddie Barahona MD R2 January 02, 2017 08:47 Andie Guerrero MD January 02, 2017 20:08
[2017-01-02] MEDS: MUPIROCIN 2% CREAM 15 GM TOPICAL SCH ×2 (09:00→20:44)
[2017-01-02] MEDS: SODIUM CHLORIDE 0.9% FLUSH 10 ML FLUSH IV FLUSH SCH ×2 (09:00→20:42)
[2017-01-02] MEDS: ARIPiprazole 5 MG TAB PO SCH (09:23)
[2017-01-02] MEDS: CITALOPRAM HYDROBROMIDE 20 MG TAB PO SCH (09:24)
[2017-01-02] MEDS: FAMOTIDINE 20 MG/2 ML VIAL IV PUSH SCH ×2 (09:24→20:41)
[2017-01-02] MEDS: LACTOBACILLUS ACIDOPHILUS 1 GM PACKET PO SCH ×3 (09:24→16:48)
[2017-01-02] MEDS: LACTATED RINGER'S 1000 ML INJ 1,000 ML IV SCH ×2 (10:42→20:45)
[2017-01-02] MEDS: AMOXICILLIN/CLAVULANATE K 875 MG TAB PO SCH ×2 (12:23→20:41)
[2017-01-02] MEDS: MORPHINE SULFATE 30 MG/30 ML PCA IV SCH (13:14)
[2017-01-02] MEDS: FONDAPARINUX SODIUM 2.5 MG/0.5 ML SYRINGE SQ SCH (20:42)
[2017-01-03] VITALS (8 sets, daily range): BP systolic 107–122; BP diastolic 53–60; PULSE 77–96; RESP 16–20; TEMP 98.7–100.4; O2SAT 92–96
[2017-01-03] MEDS: diphenhydrAMINE HCL 25 MG CAP PO PRN ×2 (01:10→08:38)
[2017-01-03] MEDS: MORPHINE SULFATE 30 MG/30 ML PCA IV SCH ×2 (02:50→18:05)
[2017-01-03] MEDS: CHLORHEXIDINE GLUCONATE 2 % 1 PACK (2 CLOTHS) TOP SCH (04:00)
[2017-01-03] MEDS: PCA - TOTAL MG MORPHINE DELIVERED PER SHIFT SCH ×3 (05:44→20:22)
[2017-01-03 05:54] LABS: AUTOMATED NEUTROPHIL # 5.2 TH/MM3 (1.8-7.7); BASOPHIL % 0.2 % (0.0-2.0); EOSINOPHIL % 0.5 % (0.0-4.0); HEMATOCRIT 22.7 % (39.0-51.0); LYMPH % 14.4 % (9.0-44.0); LYMPHOCYTE # 1.1 TH/MM3 (1.0-4.8); MEAN CELL VOLUME 92.1 FL (80.0-100.0); MEAN CORPUSCULAR HGB CONC 33.7 % (32.0-36.0); NEUT % 65.9 % (16.0-70.0); PLATELET COUNT 94 TH/MM3 (150-450); RED BLOOD COUNT 2.47 MIL/MM3 (4.50-5.90); WHITE BLOOD COUNT 7.9 TH/MM3 (4.0-11.0)
[2017-01-03 05:58] LABS: HEMO FLAGS AUTO DIFF
[2017-01-03] MEDS: INSULIN ASPART SUPPLEMENTAL SCALE SQ SCH ×4 (06:05→21:00)
[2017-01-03 06:09] LABS: BICARBONATE 26.8 MEQ/L (21.0-32.0)
--- NOTE | 2017-01-03 08:10 | PD.ORT.PN ---
Subjective Post Op Day #: 2 Subjective Remarks Patient sitting upright in bed, awake and alert and answering questions appropriately. He admits his left lower extremity is having muscle spasms. He admits he is scared to get up to chair for the first time. No other complaints at this time. All questions answered. Pt was reassured. Objective Vitals Vital Signs Date Time Temp Pulse Resp B/P Pulse Ox O2 Delivery O2 Flow Rate FiO2 01/03/17 05:44 17 01/03/17 04:00 99.8 80 18 112/54 93 01/03/17 02:50 16 01/03/17 00:00 100.4 84 18 112/58 94 01/02/17 20:45 Nasal Cannula 2.00 01/02/17 20:44 16 01/02/17 20:00 100.0 83 20 130/60 94 01/02/17 18:31 Nasal Cannula 2.00 01/02/17 16:00 100.7 80 16 121/59 96 01/02/17 13:23 18 01/02/17 13:21 18 01/02/17 13:14 18 01/02/17 12:00 99.3 81 18 117/59 97 01/02/17 09:08 95 Nasal Cannula 2.00 I/O 01/02/17 01/02/17 01/02/17 01/03/17 01/03/17 01/03/17 07:00 15:00 23:00 07:00 15:00 23:00 Intake Total 733 ml 1300 ml 980 ml 927 ml Output Total 430 ml 1000 ml 450 ml 1170 ml Balance 303 ml 300 ml 530 ml -243 ml Intake Oral 240 ml 800 ml 240 ml 240 ml IV Total 493 ml 500 ml 740 ml 687 ml Output Urine Total 400 ml 1000 ml 450 ml 1150 ml Drainage Total 30 ml 20 ml Bladder Scan Volume Amount 400 ml # Bowel Movements 0 0 1 Result Diagram: 01/03/17 0502 01/03/17 0502 Imaging Last Impressions Renal Ultrasound 12/25/16 0000 Signed Impressions: Service Date/Time: Sunday, December 25, 2016 13:28 - CONCLUSION: 1. Unremarkable ultrasound examination of the kidneys. Hang Lin MD Foot X-Ray 12/23/16 0000 Signed Impressions: Service Date/Time: Friday, December 23, 2016 09:40 - CONCLUSION: Soft tissue swelling and post surgical changes. Laureano Grider MD Foot MRI 12/22/16 0000 Signed Impressions: Service Date/Time: Thursday, December 22, 2016 16:49 - CONCLUSION: 1. Diffuse marrow edema involving the remaining portion of the left 5th metatarsal with extensive overlying soft-tissue swelling. The findings raise the possibility of osteomyelitis of the 5th metatarsal and overlying cellulitis. Clinical correlation is recommended. 2. Questionable nondisplaced fractures involving the bases of the left 3rd and 4th metatarsals with some associated marrow edema. Shade Kee MD Chest X-Ray 12/21/160 Signed Impressions: Service Date/Time: Wednesday, December 21, 2016 22:20 - CONCLUSION: No acute disease. Paramjit Bae MD Procedures Left below-knee amputation (01/01/17) Objective Remarks LLE: BKA. Dressing / splint dry and intact. + drain. Tender to palpation with mild swelling around incision site. No specific area of tenderness over stump. Skin is warm. Neurovascular intact. Assessment & Plan Ortho Post Op Day #: 2 Problem List: (1) Osteomyelitis of left foot (2) Sepsis (3) Anaerobic bacterial infection (4) Cellulitis (5) Diabetes (6) Hyperlipidemia Assessment and Plan Left below-knee amputation POD #2. Ortho status stable. Dressing changes today. Remove drain. [employer] requested for knee immobilizer. Progress rehab / Non w/b LLE Arixta DVT prophylaxis Continue pain control / bowel regimen Would recommend muscle relaxer per attending's discretion. Up to chair today Discharge planning - most likely rehab tomorrow from orthopedic standpoint. Amaris Vidal January 03, 2017 08:09
[2017-01-03] MEDS: MULTIVITAMINS/MINERALS THERAPEUTIC TAB PO SCH ×2 (08:32→20:17)
[2017-01-03] MEDS: CITALOPRAM HYDROBROMIDE 20 MG TAB PO SCH (08:32)
[2017-01-03] MEDS: ARIPiprazole 5 MG TAB PO SCH (08:32)
[2017-01-03] MEDS: DOCUSATE SODIUM 100 MG CAP PO SCH ×2 (08:32→20:17)
[2017-01-03] MEDS: AMOXICILLIN/CLAVULANATE K 875 MG TAB PO SCH ×2 (08:32→20:18)
[2017-01-03] MEDS: LACTOBACILLUS ACIDOPHILUS 1 GM PACKET PO SCH ×3 (08:32→18:01)
[2017-01-03] MEDS: FAMOTIDINE 20 MG/2 ML VIAL IV PUSH SCH ×2 (08:32→20:18)
[2017-01-03] MEDS: SODIUM CHLORIDE 0.9% FLUSH 10 ML FLUSH IV FLUSH SCH ×2 (08:33→20:22)
[2017-01-03 08:40] LABS: BANDS 10 % (0-6); MYELOCYTES 1 % (0-0); NEUTROPHIL # MANUAL DIFF 5.8 TH/MM3 (1.8-7.7); OVALOCYTES 1+ (NORMAL); POLYS (SEG NEUTROPHILS) 62 % (16-70); WBC DIFF SAMPLE 100
[2017-01-03 08:41] LABS: PLATELET ESTIMATE SMEAR LOW (NORMAL); PLATELET MORPHOLOGY NORMAL (NORMAL); SCAN/DIFF FINAL DIFF MANUAL
[2017-01-03] MEDS: MUPIROCIN 2% CREAM 15 GM TOPICAL SCH ×2 (08:43→20:19)
[2017-01-03] MEDS: LACTATED RINGER'S 1000 ML INJ 1,000 ML IV SCH (12:06)
--- NOTE | 2017-01-03 12:21 | HHI.FPPN ---
Subjective Remarks Patient is doing well this morning. Denies fever, chills, nausea, vomiting. He has having pain at the amputation site. Pain is relieved with medication. He has questions about what to expect forward. He has questions about rehabilitation facility he will be going to. (Freddie Barahona MD R2) Objective Vitals Vital Signs Date Time Temp Pulse Resp B/P Pulse Ox O2 Delivery O2 Flow Rate FiO2 01/03/17 09:51 96 Nasal Cannula 2.00 01/03/17 08:49 96 Nasal Cannula 2.00 01/03/17 08:00 99.5 81 16 112/56 96 01/03/17 05:44 17 01/03/17 04:00 99.8 80 18 112/54 93 01/03/17 02:50 16 01/03/17 00:00 100.4 84 18 112/58 94 01/02/17 20:45 Nasal Cannula 2.00 01/02/17 20:44 16 01/02/17 20:00 100.0 83 20 130/60 94 01/02/17 18:31 Nasal Cannula 2.00 01/02/17 16:00 100.7 80 16 121/59 96 01/02/17 13:23 18 01/02/17 13:21 18 01/02/17 13:14 18 I/O 01/02/17 01/02/17 01/02/17 01/03/17 01/03/17 01/03/17 07:00 15:00 23:00 07:00 15:00 23:00 Intake Total 733 ml 1300 ml 980 ml 927 ml Output Total 430 ml 1000 ml 450 ml 1170 ml Balance 303 ml 300 ml 530 ml -243 ml Intake Oral 240 ml 800 ml 240 ml 240 ml IV Total 493 ml 500 ml 740 ml 687 ml Output Urine Total 400 ml 1000 ml 450 ml 1150 ml Drainage Total 30 ml 20 ml Bladder Scan Volume Amount 400 ml # Bowel Movements 0 0 1 (Freddie Barahona MD R2) Result Diagram: 01/03/17 0502 01/03/17 0502 Objective Remarks GENERAL: This is a well-nourished, well-developed patient, with some apparent depressed affect SKIN: Status post left BKA. Currently wrapped per wound care. HEAD: Atraumatic. Normocephalic. CARDIOVASCULAR: RRR RESPIRATORY: Clear to auscultation. Breath sounds equal bilaterally. No wheezes , rales, or rhonchi. GASTROINTESTINAL: Abdomen soft, non-tender, nondistended. No hepato-splenomegaly , or palpable masses. No guarding. MUSCULOSKELETAL: Status post left BKA. NEUROLOGICAL: Awake and alert. Cranial nerves grossly intact (Freddie Barahona MD R2) A/P Assessment and Plan 56-year-old male with a past medical history of complicated type 2 diabetes presented meeting sepsis criteria with diabetic left foot wound. Postop day #2 status post left BKA. Discharge Planning Pending orthopedic surgery recommendations. Possibly tomorrow Case management consulted for discharge needs. Physical therapy consult (Freddie Barahona MD R2) Attending Attestation Patient seen, examined, and discussed with resident team. I agree with assessment and management as documented and discussed with me. Patient reports pain in left leg at site of surgery. He was encouraged to work with PT. (Andie Guerrero MD) Problem List: (1) Diabetic foot ulcer Status: Chronic Plan: Podiatry consulted Infectious disease consult Physical therapy consult Orthopedic surgery consult Postop day #2 status post left BKA Antibiotics: Per infectious disease on 01/02-IV antibiotics can be discontinued and patient can be placed on by mouth Augmentin. Augmentin 875 mg every 12 hours (started 01/02) for a 5 day course. Antibiotic history: Clindamycin IV now discontinued (12/22-12/28), Zosyn also discontinued (12/22-12/26) Antibiotics per ID: Unasyn IV every 6 hours ( 12/26-01/01) History: -12/23: Status post left foot ankle incision drainage debridement partial resection of the 5th metatarsal head. -Intraoperative findings of metatarsal resection show severe necrosis down to periosteum of the midfoot, abscess severe. Wound culture: Staph aureus, enterococcus, mixed anaerobes Blood Cultures positive as listed under sepsis Most recent blood cultures from 12/25 no growth after 5 days Bone pathology left fifth metatarsal showing acute osteomyelitis (2) Anemia Status: Chronic Plan: Hematology consult Likely secondary to chronic infection. Peripheral smear shows normochromic normocytic anemia Status post 2 units packed red blood cells on 12/22. Status post 2 units packed red blood cells on 12/25. Status post 2 units packed red blood cells on 12/31 Continue to monitor; transfuse when less than 7 Labs: Vitamin B12, B1, folate within normal limits. Iron, TIBC indicative of chronic inflammation. Hemoccult ordered and discussed with nurse importance of this order. (3) Diabetes Status: Chronic Plan: -Hemoglobin A1c on 12/11 was 6.9 Sliding scale insulin while in hospital. Patient has had diarrhea on metformin, likely will need to be discontinued as an outpatient and put on glipizide (4) Social issues Status: Acute Plan: Patient lives with his 90-year-old aunt who has dementia and is unable to take care of the patient on discharge. Case management consulted to assist with disposition. (5) Anxiety and depression Status: Acute Plan: -Continue home Abilify 5 mg by mouth daily and Celexa 10 mg by mouth daily -Psychiatry consulted: Diagnosed with dysthymia; he has appropriate follow-up with psychiatry services in the community (6) FEN/DVT PPX/GI PPX Status: Acute Plan: Fluids: LR at 80 ML's per hour. Electrolytes: Will monitor and replace as needed Nutrition: Diabetic diet DVT Prophylaxis: Fondaparinux per orthopedic surgery. Okay from hematology to be on heparin prophylactically because of false positive HIT. GI Prophylaxis: Famotidine 10 mg IV every 12 hours (7) Sepsis Status: Resolved Plan: Infectious disease consult Vitals currently stable. Sources of sepsis is left foot wound. 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 HIT positive is likely a false positive result Continue to monitor platelets Patient has been started on fondaparinux per hematology Medical history: Heparin discontinued Argatroban discontinued per hematology (Freddie Barahona MD R2) Problem Qualifiers (1) Diabetic foot ulcer: Qualified Code: E11.621 - Diabetic ulcer of toe of left foot associated with type 2 diabetes mellitus, unspecified ulcer stage (2) Anemia: Qualified Code: D64.9 - Anemia, unspecified type (3) Diabetes: Qualified Code: E11.42 - Type 2 diabetes mellitus with diabetic polyneuropathy , without long-term current use of insulin (4) Sepsis: Qualified Code: A41.9 - Sepsis, due to unspecified organism Freddie Barahona MD R2 January 03, 2017 12:21 Andie Guerrero MD January 04, 2017 10:39
[2017-01-03] MEDS: CYCLOBENZAPRINE HCL 10 MG TAB PO PRN (18:01)
[2017-01-03] MEDS: FONDAPARINUX SODIUM 2.5 MG/0.5 ML SYRINGE SQ SCH (20:18)
[2017-01-04] VITALS (12 sets, daily range): BP systolic 109–153; BP diastolic 54–78; PULSE 70–91; RESP 15–20; TEMP 95.9–100.9; O2SAT 92–98
[2017-01-04] MEDS: LACTATED RINGER'S 1000 ML INJ 1,000 ML IV SCH (00:22)
[2017-01-04] MEDS: CYCLOBENZAPRINE HCL 10 MG TAB PO PRN (03:58)
[2017-01-04] MEDS: CHLORHEXIDINE GLUCONATE 2 % 1 PACK (2 CLOTHS) TOP SCH ×2 (03:59→19:25)
[2017-01-04 05:36] LABS: AUTOMATED NEUTROPHIL # 5.8 TH/MM3 (1.8-7.7); BASOPHIL % 0.3 % (0.0-2.0); EOSINOPHIL # 0.1 TH/MM3 (0-0.4); EOSINOPHIL % 0.7 % (0.0-4.0); HEMATOCRIT 21.4 % (39.0-51.0); LYMPH % 15.5 % (9.0-44.0); LYMPHOCYTE # 1.4 TH/MM3 (1.0-4.8); MEAN CORPUSCULAR HEMOGLOBIN 30.7 PG (27.0-34.0); MONO % 17.8 % (0.0-8.0); NEUT % 65.7 % (16.0-70.0); PLATELET COUNT 96 TH/MM3 (150-450); RED CELL DISTRIBUTION WIDTH 16.8 % (11.6-17.2); WHITE BLOOD COUNT 8.8 TH/MM3 (4.0-11.0)
[2017-01-04 05:40] LABS: HEMO FLAGS AUTO DIFF
[2017-01-04 05:49] LABS: BICARBONATE 27.6 MEQ/L (21.0-32.0); CALCIUM-PROTEIN CORRECTED 8.2 MG/DL (8.5-10.1); POTASSIUM 4.9 MEQ/L (3.5-5.1); TOTAL BILIRUBIN ADULT 0.5 MG/DL (0.2-1.0)
[2017-01-04] MEDS: PCA - TOTAL MG MORPHINE DELIVERED PER SHIFT SCH (05:55)
[2017-01-04] MEDS: INSULIN ASPART SUPPLEMENTAL SCALE SQ SCH ×4 (06:19→21:10)
--- NOTE | 2017-01-04 06:57 | PD.ORT.PN ---
Subjective Post Op Day #: 3 Pain Scale: 4 Subjective Remarks The patient is awake and alert and answers questions appropriately. He states his pain is "changing". He relates intermittent spasm. He states he was out of bed yesterday. He is quite apprehensive about transfers. Per the case management notes, there is difficulty with placement. Objective Vitals Vital Signs Date Time Temp Pulse Resp B/P Pulse Ox O2 Delivery O2 Flow Rate FiO2 01/04/17 05:55 16 01/04/17 04:00 98.2 79 18 109/55 94 01/04/17 00:00 99.8 85 20 122/58 92 01/03/17 20:28 94 Nasal Cannula 2.00 01/03/17 20:22 17 01/03/17 20:20 Nasal Cannula 2.00 01/03/17 20:00 98.7 82 18 113/54 92 01/03/17 16:00 98.9 96 20 122/60 93 01/03/17 12:00 99.2 77 18 107/53 96 01/03/17 09:51 96 Nasal Cannula 2.00 01/03/17 08:49 96 Nasal Cannula 2.00 01/03/17 08:00 99.5 81 16 112/56 96 I/O 01/03/17 01/03/17 01/03/17 01/04/17 01/04/17 01/04/17 07:00 15:00 23:00 07:00 15:00 23:00 Intake Total 927 ml 1217 ml 874 ml 943 ml Output Total 1170 ml 450 ml 300 ml 650 ml Balance -243 ml 767 ml 574 ml 293 ml Intake Oral 240 ml 600 ml 360 ml 240 ml IV Total 687 ml 617 ml 514 ml 703 ml Output Urine Total 1150 ml 450 ml 300 ml 650 ml Drainage Total 20 ml # Bowel Movements 1 0 0 0 Result Diagram: 01/04/17 0455 01/04/17 0455 Imaging Last Impressions Renal Ultrasound 12/25/16 0000 Signed Impressions: Service Date/Time: Sunday, December 25, 2016 13:28 - CONCLUSION: 1. Unremarkable ultrasound examination of the kidneys. Hang Lin MD Foot X-Ray 12/23/16 0000 Signed Impressions: Service Date/Time: Friday, December 23, 2016 09:40 - CONCLUSION: Soft tissue swelling and post surgical changes. Laureano Grider MD Foot MRI 12/22/16 0000 Signed Impressions: Service Date/Time: Thursday, December 22, 2016 16:49 - CONCLUSION: 1. Diffuse marrow edema involving the remaining portion of the left 5th metatarsal with extensive overlying soft-tissue swelling. The findings raise the possibility of osteomyelitis of the 5th metatarsal and overlying cellulitis. Clinical correlation is recommended. 2. Questionable nondisplaced fractures involving the bases of the left 3rd and 4th metatarsals with some associated marrow edema. Shade Kee MD Chest X-Ray 12/21/160 Signed Impressions: Service Date/Time: Wednesday, December 21, 2016 22:20 - CONCLUSION: No acute disease. Paramjit Bae MD Procedures Left below-knee amputation (01/01/17) Objective Remarks LLE: BKA. Dressing dry and intact. There is a CKS in place. He is able to do a straight leg raise without difficulty. Assessment & Plan Ortho Post Op Day #: 3 Problem List: (1) Osteomyelitis of left foot (2) Sepsis (3) Anaerobic bacterial infection (4) Cellulitis (5) Diabetes (6) Hyperlipidemia Assessment and Plan The patient's orthopedic status is stable postoperatively #3. Okay for discharge from an orthopedic standpoint when medically stable and arrangements made per case management. We will be available through holiday weekend as needed. Tang Moctezuma MD January 04, 2017 06:57
[2017-01-04 07:00] LABS: BANDS 9 % (0-6); NEUTROPHIL # MANUAL DIFF 6.2 TH/MM3 (1.8-7.7); PLATELET ESTIMATE SMEAR LOW (NORMAL); POLYS (SEG NEUTROPHILS) 62 % (16-70); WBC DIFF SAMPLE 100
[2017-01-04 07:01] LABS: ACANTHOCYTES OCC (NORMAL); PLATELET MORPHOLOGY NORMAL (NORMAL); SCAN/DIFF FINAL DIFF MANUAL
[2017-01-04] MEDS ORDERED: ACETAMINOPHEN 325 MG TAB PO PRN (07:30)
[2017-01-04] MEDS ORDERED: diphenhydrAMINE HCL 25 MG CAP PO PRN (07:30)
[2017-01-04] MEDS ORDERED: SODIUM CHLOR 0.9% 250 ML INJ 250 ML IV ONE (07:30)
[2017-01-04] MEDS ORDERED: MAGNESIUM HYDROXIDE SUSP 30 ML CUP PO PRN (08:00)
[2017-01-04] MEDS ORDERED: SENNOSIDES 8.6 MG TAB PO PRN (08:00)
[2017-01-04] MEDS ORDERED: LACTULOSE SYRUP 20 GM/30 ML CUP PO PRN (08:00)
--- NOTE | 2017-01-04 08:58 | HHI.FPPN ---
Subjective Remarks Patient met with orthopedic surgery this morning. Questions were answered. Patient continues to use [employer] pump. Patient states he can go hours without using it. He is having trouble with motivation. He understands he needs to work with physical therapy in order to get better. He continues to have spasms from his stump. Denies fever, chills, chest pain, nausea, vomiting, diarrhea. ( Freddie Barahona MD R2) Objective Vitals Vital Signs Date Time Temp Pulse Resp B/P Pulse Ox O2 Delivery O2 Flow Rate FiO2 01/04/17 08:00 98.7 72 20 124/60 98 01/04/17 05:55 16 01/04/17 04:00 98.2 79 18 109/55 94 01/04/17 00:00 99.8 85 20 122/58 92 01/03/17 20:28 94 Nasal Cannula 2.00 01/03/17 20:22 17 01/03/17 20:20 Nasal Cannula 2.00 01/03/17 20:00 98.7 82 18 113/54 92 01/03/17 16:00 98.9 96 20 122/60 93 01/03/17 12:00 99.2 77 18 107/53 96 01/03/17 09:51 96 Nasal Cannula 2.00 01/03/17 08:49 96 Nasal Cannula 2.00 I/O 01/03/17 01/03/17 01/03/17 01/04/17 01/04/17 01/04/17 07:00 15:00 23:00 07:00 15:00 23:00 Intake Total 927 ml 1217 ml 874 ml 943 ml Output Total 1170 ml 450 ml 300 ml 650 ml Balance -243 ml 767 ml 574 ml 293 ml Intake Oral 240 ml 600 ml 360 ml 240 ml IV Total 687 ml 617 ml 514 ml 703 ml Output Urine Total 1150 ml 450 ml 300 ml 650 ml Drainage Total 20 ml # Bowel Movements 1 0 0 0 (Freddie Barahona MD R2) Result Diagram: 01/04/17 0455 01/04/17 0455 Objective Remarks GENERAL: This is a well-nourished, well-developed patient, with depressed affect SKIN: Status post left BKA. Currently wrapped per wound care. HEAD: Atraumatic. Normocephalic. CARDIOVASCULAR: RRR RESPIRATORY: Clear to auscultation. Breath sounds equal bilaterally. No wheezes , rales, or rhonchi. GASTROINTESTINAL: Abdomen soft, non-tender, nondistended. No hepato-splenomegaly , or palpable masses. No guarding. MUSCULOSKELETAL: Status post left BKA. NEUROLOGICAL: Awake and alert. Cranial nerves grossly intact (Freddie Barahona MD R2) A/P Assessment and Plan 56-year-old male with a past medical history of complicated type 2 diabetes presented meeting sepsis criteria with diabetic left foot wound. Postop day #3 status post left BKA. Orthopedic surgery has cleared patient for discharge from the perspective. Requesting physical therapy to work with the patient daily, even through weekend /holiday. Discharge Planning Patient cleared from orthopedic standpoint. Case management consulted for discharge needs. Likely to rehabilitation facility. Physical therapy consult (Freddie Barahona MD R2) Attending Attestation Patient seen and examined, discussed with resident team. I agree with assessment and management as documented and discussed with me. Patient feels like pain is improving. He does report soreness at incision site. Encouraged pt to work with PT. (Andie uGerrero MD) Problem List: (1) Diabetic foot ulcer Status: Chronic Plan: Podiatry consulted Infectious disease consult Physical therapy consult Orthopedic surgery consult Postop day #3 status post left BKA-okay for discharge from an orthopedic standpoint. Orthopedics will be available as needed. Pain control: Percocet 1 tab every 4 hours when necessary pain 1-5, 2 tabs pain 6-10 Antibiotics: Per infectious disease on 01/02-IV antibiotics can be discontinued and patient can be placed on by mouth Augmentin. Augmentin 875 mg every 12 hours (started 01/02) for a 5 day course. Antibiotic history: Clindamycin IV now discontinued (12/22-12/28), Zosyn also discontinued (12/22-12/26) Antibiotics per ID: Unasyn IV every 6 hours ( 12/26-01/01) History: -12/23: Status post left foot ankle incision drainage debridement partial resection of the 5th metatarsal head. -Intraoperative findings of metatarsal resection show severe necrosis down to periosteum of the midfoot, abscess severe. Wound culture: Staph aureus, enterococcus, mixed anaerobes Blood Cultures positive as listed under sepsis Most recent blood cultures from 12/25 no growth after 5 days Bone pathology left fifth metatarsal showing acute osteomyelitis (2) Anemia Status: Chronic Plan: Hematology consult Likely secondary to chronic infection and recent BKA. Peripheral smear shows normochromic normocytic anemia Status post 2 units packed red blood cells on 12/22. Status post 2 units packed red blood cells on 12/25. Status post 2 units packed red blood cells on 12/31 Transfuse 2 units packed red blood cells ordered on 01/04. Continue to monitor; transfuse when less than 7 Hemoccult Order as below. If positive, consider GI consultation. Labs: Vitamin B12, B1, folate within normal limits. Iron, TIBC indicative of chronic inflammation. Hemoccult ordered and discussed with nurse importance of this order. (3) TAYLOR (acute kidney injury) Status: Acute Plan: Creatinine increased this morning. Nephrology previously consulted, now available as needed. increase IV fluids to 160 mL's per hour. If creatinine continues to increase, reconsult nephrology. (4) Stage 1 decubitus ulcer in diabetic patient Status: Acute Plan: Notified 01/03 at 11 AM of stage I decubitus at the patient's sacrum. Wound care nursing consult Offload areas of pressure per protocol Continue to work with physical therapy Soft mattress order Further orders per wound care (5) Diabetes Status: Chronic Plan: -Hemoglobin A1c on 12/11 was 6.9 Sliding scale insulin while in hospital. Patient has had diarrhea on metformin, likely will need to be discontinued as an outpatient and put on glipizide (6) Social issues Status: Acute Plan: Patient lives with his 90-year-old aunt who has dementia and is unable to take care of the patient on discharge. Case management consulted to assist with disposition. Likely to rehabilitation facility. (7) Anxiety and depression Status: Acute Plan: -Continue home Abilify 5 mg by mouth daily and Celexa 10 mg by mouth daily -Psychiatry consulted: Diagnosed with dysthymia; he has appropriate follow-up with psychiatry services in the community (8) FEN/DVT PPX/GI PPX Status: Acute Plan: Fluids: Normal saline at 160 miles per hour Electrolytes: Will monitor and replace as needed Nutrition: Diabetic diet DVT Prophylaxis: Fondaparinux per orthopedic surgery. Okay from hematology to be on heparin prophylactically because of false positive HIT. GI Prophylaxis: Famotidine 10 mg IV every 12 hours (9) Sepsis Status: Resolved Plan: Infectious disease consult Vitals currently stable. Sources of sepsis is left foot wound. See antibiotic management under diabetic foot wound Blood cultures 12/21: Pasteurella, Staphylococcus aureus Blood cultures 12/25: No growth after 5 days (10) HIT (heparin-induced thrombocytopenia) Status: Resolved Plan: Hematology consult Serotonin release assay negative. HIT positive is likely a false positive result Continue to monitor platelets Patient has been started on fondaparinux per hematology Medical history: Heparin discontinued Argatroban discontinued per hematology (Freddie Barahona MD R2) Problem Qualifiers (1) Diabetic foot ulcer: Qualified Code: E11.621 - Diabetic ulcer of toe of left foot associated with type 2 diabetes mellitus, unspecified ulcer stage (2) Anemia: Qualified Code: D64.9 - Anemia, unspecified type (3) Diabetes: Qualified Code: E11.42 - Type 2 diabetes mellitus with diabetic polyneuropathy , without long-term current use of insulin (4) Sepsis: Qualified Code: A41.9 - Sepsis, due to unspecified organism Freddie Barahona MD R2 January 04, 2017 08:58 Andie Guerrero MD January 04, 2017 15:21
[2017-01-04] MEDS: SODIUM CHLORIDE 0.9% FLUSH 10 ML FLUSH IV FLUSH SCH ×2 (09:00→20:08)
[2017-01-04] MEDS: FAMOTIDINE 20 MG/2 ML VIAL IV PUSH SCH ×2 (09:00→21:10)
[2017-01-04] MEDS: SODIUM CHLOR 0.9% 1000 ML INJ 1,000 ML IV SCH ×3 (10:04→20:00)
[2017-01-04] MEDS: AMOXICILLIN/CLAVULANATE K 875 MG TAB PO SCH ×2 (10:05→20:57)
[2017-01-04] MEDS: ARIPiprazole 5 MG TAB PO SCH (10:05)
[2017-01-04] MEDS: LACTOBACILLUS ACIDOPHILUS 1 GM PACKET PO SCH ×3 (10:05→17:09)
[2017-01-04] MEDS: CITALOPRAM HYDROBROMIDE 20 MG TAB PO SCH (10:05)
[2017-01-04] MEDS: DOCUSATE SODIUM 100 MG CAP PO SCH ×2 (10:05→20:57)
[2017-01-04] MEDS: MULTIVITAMINS/MINERALS THERAPEUTIC TAB PO SCH ×2 (10:05→20:57)
[2017-01-04] MEDS: MUPIROCIN 2% CREAM 15 GM TOPICAL SCH ×2 (10:06→21:03)
[2017-01-04] MEDS: DOCUSATE SODIUM 50 MG/SENNA 8.6 MG TAB PO SCH ×2 (10:11→20:57)
[2017-01-04] MEDS: oxyCODONE/ACETAMINOPHEN 5 MG/325 MG TAB PO PRN ×2 (10:12→17:08)
[2017-01-04] MEDS: FONDAPARINUX SODIUM 2.5 MG/0.5 ML SYRINGE SQ SCH (20:58)
[2017-01-05] VITALS (9 sets, daily range): BP systolic 122–148; BP diastolic 64–78; PULSE 69–81; RESP 16–20; TEMP 95.4–99.4; O2SAT 90–100
[2017-01-05] MEDS: SODIUM CHLOR 0.9% 1000 ML INJ 1,000 ML IV SCH ×5 (01:55→21:32)
[2017-01-05 05:25] LABS: AUTOMATED NEUTROPHIL # 8.1 TH/MM3 (1.8-7.7); BASOPHIL % 0.2 % (0.0-2.0); EOSINOPHIL # 0.1 TH/MM3 (0-0.4); EOSINOPHIL % 0.5 % (0.0-4.0); HEMATOCRIT 24.9 % (39.0-51.0); HEMO FLAGS DIFF FINAL; LYMPH % 9.6 % (9.0-44.0); MEAN CELL VOLUME 88.1 FL (80.0-100.0); MEAN CORPUSCULAR HEMOGLOBIN 30.9 PG (27.0-34.0); MONO % 15.2 % (0.0-8.0); NEUT % 74.5 % (16.0-70.0); PLATELET COUNT 122 TH/MM3 (150-450); RED BLOOD COUNT 2.82 MIL/MM3 (4.50-5.90); RED CELL DISTRIBUTION WIDTH 18.6 % (11.6-17.2); WHITE BLOOD COUNT 10.8 TH/MM3 (4.0-11.0)
[2017-01-05 05:43] LABS: ALT (GPT) 17 U/L (12-78); ANION GAP 6 MEQ/L (5-15); AST (GOT) 32 U/L (15-37); BICARBONATE 25.8 MEQ/L (21.0-32.0); BLOOD UREA NITROGEN 26 MG/DL (7-18); CHLORIDE 105 MEQ/L (98-107); GLOMERULAR FILTRATION RATE 33 ML/MIN (>89); SODIUM (NA) 137 MEQ/L (136-145)
[2017-01-05 05:45] LABS: ALKALINE PHOSPHATASE 218 U/L (45-117); TOTAL BILIRUBIN ADULT 0.7 MG/DL (0.2-1.0)
[2017-01-05] MEDS: INSULIN ASPART SUPPLEMENTAL SCALE SQ SCH ×4 (06:12→21:00)
[2017-01-05] MEDS: AMOXICILLIN/CLAVULANATE K 875 MG TAB PO SCH ×2 (07:48→21:30)
[2017-01-05] MEDS: CITALOPRAM HYDROBROMIDE 20 MG TAB PO SCH (07:48)
[2017-01-05] MEDS: DOCUSATE SODIUM 50 MG/SENNA 8.6 MG TAB PO SCH ×2 (07:48→21:30)
[2017-01-05] MEDS: ARIPiprazole 5 MG TAB PO SCH (07:48)
[2017-01-05] MEDS: MULTIVITAMINS/MINERALS THERAPEUTIC TAB PO SCH ×2 (07:48→21:30)
[2017-01-05] MEDS: FAMOTIDINE 20 MG/2 ML VIAL IV PUSH SCH ×2 (07:49→21:31)
[2017-01-05] MEDS: DOCUSATE SODIUM 100 MG CAP PO SCH ×2 (07:49→21:30)
[2017-01-05] MEDS: LACTOBACILLUS ACIDOPHILUS 1 GM PACKET PO SCH ×3 (07:49→17:34)
[2017-01-05] MEDS: SODIUM CHLORIDE 0.9% FLUSH 10 ML FLUSH IV FLUSH SCH ×2 (07:52→21:29)
--- NOTE | 2017-01-05 07:54 | HHI.FPPN ---
Subjective Remarks No acute events overnight. Temp of 100.9 yesterday evening. Vitals are stable. UOP adequate. Patient is pleasant this morning. His main concern is waking up at night due to a muscle spasm that is short-lived however he has difficulty falling back asleep once waking up. He states he would like to control his pain with PO narcotics and would like to avoid morphine. He is otherwise without complaints. He denies feeling feverish. Denies CP or SOB. (Chacorta France MD R1) Objective Vitals Vital Signs Date Time Temp Pulse Resp B/P Pulse Ox O2 Delivery O2 Flow Rate FiO2 01/05/17 04:00 133/69 01/05/17 03:00 92 21 01/05/17 00:00 99.4 81 18 142/69 93 01/04/17 20:14 95 21 01/04/17 20:00 98.7 85 18 127/54 94 01/04/17 20:00 Room Air 01/04/17 17:30 95.9 87 20 128/60 93 01/04/17 17:10 100.9 89 153/74 92 01/04/17 16:00 99.2 91 19 145/66 95 01/04/17 13:56 96.2 79 17 125/62 92 01/04/17 13:30 98.0 70 15 116/57 96 01/04/17 12:00 98.1 81 19 126/61 94 01/04/17 08:23 93 01/04/17 08:00 98.7 72 20 124/60 98 I/O 01/04/17 01/04/17 01/04/17 01/05/17 01/05/17 01/05/17 07:00 15:00 23:00 07:00 15:00 23:00 Intake Total 943 ml 1000 ml 240 ml 3197 ml Output Total 650 ml 600 ml 600 ml 700 ml Balance 293 ml 400 ml -360 ml 2497 ml Intake Oral 240 ml 1000 ml 240 ml 480 ml IV Total 703 ml 2717 ml Output Urine Total 650 ml 600 ml 600 ml 700 ml # Bowel Movements 0 0 (Chacorta France MD R1) Result Diagram: 01/05/17 0415 01/05/175 Objective Remarks GENERAL: This is a well-nourished, well-developed patient, with depressed affect SKIN: Status post left BKA. Currently wrapped per wound care. HEAD: Atraumatic. Normocephalic. CARDIOVASCULAR: RRR RESPIRATORY: Clear to auscultation. Breath sounds equal bilaterally. No wheezes , rales, or rhonchi. GASTROINTESTINAL: Abdomen soft, non-tender, nondistended. No hepato-splenomegaly , or palpable masses. No guarding. MUSCULOSKELETAL: Status post left BKA. NEUROLOGICAL: Awake and alert. Cranial nerves grossly intact (Chacorta France MD R1) A/P Assessment and Plan 56-year-old male with a past medical history of complicated type 2 diabetes presented meeting sepsis criteria with diabetic left foot wound. Postop day #4 status post left BKA. Orthopedic surgery has cleared patient for discharge from their perspective. Requesting physical therapy to work with the patient daily, even through weekend /holiday. Discharge Planning Patient cleared from orthopedic standpoint. Case management consulted for discharge needs. Likely to rehabilitation facility. Physical therapy consult (Chacorta France MD R1) Attending Attestation Patient seen, examined, and discussed with Dr. France. I agree with assessment and management as documented and discussed with me. Patient reports no pain this morning, although he has not worked with PT yet. Creatinine stable from yesterday (2.05 --> 2.10). Continue IVF at current rate. Reconsult nephrology in AM if creatinine rises again. (Andie Guerrero MD) Problem List: (1) Diabetic foot ulcer Status: Chronic Plan: Podiatry consulted Infectious disease consult Physical therapy consult Orthopedic surgery consult Postop day #4 status post left BKA-okay for discharge from an orthopedic standpoint. Orthopedics will be available as needed. Pain control: Percocet 1 tab every 4 hours when necessary pain 1-5, 2 tabs pain 6-10 Antibiotics: Per infectious disease on 01/02-IV antibiotics can be discontinued and patient can be placed on by mouth Augmentin. Augmentin 875 mg every 12 hours (started 01/02) for a 5 day course. Antibiotic history: Clindamycin IV discontinued (12/22-12/28) Zosyn also discontinued (12/22-12/26) Antibiotics per ID: Unasyn IV every 6 hours discontinued ( 12/26-01/01) History: -12/23: Status post left foot ankle incision drainage debridement partial resection of the 5th metatarsal head. -Intraoperative findings of metatarsal resection show severe necrosis down to periosteum of the midfoot, abscess severe. Wound culture: Staph aureus, enterococcus, mixed anaerobes Blood Cultures positive as listed under sepsis Most recent blood cultures from 12/25 no growth after 5 days Bone pathology left fifth metatarsal showing acute osteomyelitis (2) Anemia Status: Chronic Plan: Hematology consult Likely secondary to chronic infection and recent BKA. Peripheral smear shows normochromic normocytic anemia Status post 2 units packed red blood cells on 12/22. Status post 2 units packed red blood cells on 12/25. Status post 2 units packed red blood cells on 12/31 Transfuse 2 units packed red blood cells ordered on 01/04. Continue to monitor; transfuse when less than 7 Hgb appropriately uptrended 01/05 s/p 2 units PRBCs Hemoccult Order as below. If positive, consider GI consultation. Labs: Vitamin B12, B1, folate within normal limits. Iron, TIBC indicative of chronic inflammation. Hemoccult ordered and discussed with nurse importance of this order. (3) TAYLOR (acute kidney injury) Status: Acute Plan: Creatinine uptrending Nephrology previously consulted, now available as needed. Continue IV fluids to 160 mL's per hour. UOP 1900 cc past 24 hours If creatinine continues to increase, reconsult nephrology. (4) Stage 1 decubitus ulcer in diabetic patient Status: Acute Plan: Notified 01/03 at 11 AM of stage I decubitus at the patient's sacrum. Wound care nursing consult Offload areas of pressure per protocol Continue to work with physical therapy Soft mattress order Further orders per wound care (5) Diabetes Status: Chronic Plan: -Hemoglobin A1c on 12/11 was 6.9 Sliding scale insulin while in hospital. Patient has had diarrhea on metformin, likely will need to be discontinued as an outpatient and put on glipizide (6) Social issues Status: Acute Plan: Patient lives with his 90-year-old aunt who has dementia and is unable to take care of the patient on discharge. Case management consulted to assist with disposition. Likely to rehabilitation facility. (7) Anxiety and depression Status: Acute Plan: -Continue home Abilify 5 mg by mouth daily and Celexa 10 mg by mouth daily -Psychiatry consulted: Diagnosed with dysthymia; he has appropriate follow-up with psychiatry services in the community (8) FEN/DVT PPX/GI PPX Status: Acute Plan: Fluids: Normal saline at 160 miles per hour Electrolytes: Will monitor and replace as needed Nutrition: Diabetic diet DVT Prophylaxis: Fondaparinux per orthopedic surgery. Okay from hematology to be on heparin prophylactically because of false positive HIT. GI Prophylaxis: Famotidine 10 mg IV every 12 hours (9) Sepsis Status: Resolved Plan: Infectious disease consult Vitals currently stable. Sources of sepsis is left foot wound. See antibiotic management under diabetic foot wound Blood cultures 12/21: Pasteurella, Staphylococcus aureus Blood cultures 12/25: No growth after 5 days (10) HIT (heparin-induced thrombocytopenia) Status: Resolved Plan: Hematology consult Serotonin release assay negative. HIT positive is likely a false positive result Continue to monitor platelets Patient has been started on fondaparinux per hematology Medical history: Heparin discontinued Argatroban discontinued per hematology (Chacorta France MD R1) Problem Qualifiers (1) Diabetic foot ulcer: Qualified Code: E11.621 - Diabetic ulcer of toe of left foot associated with type 2 diabetes mellitus, unspecified ulcer stage (2) Anemia: Qualified Code: D64.9 - Anemia, unspecified type (3) Diabetes: Qualified Code: E11.42 - Type 2 diabetes mellitus with diabetic polyneuropathy , without long-term current use of insulin (4) Sepsis: Qualified Code: A41.9 - Sepsis, due to unspecified organism Chacorta France MD R1 January 05, 2017 07:54 Andie Guerrero MD January 05, 2017 17:28
[2017-01-05] MEDS: oxyCODONE/ACETAMINOPHEN 5 MG/325 MG TAB PO PRN ×2 (11:06→21:47)
[2017-01-05] MEDS: MUPIROCIN 2% CREAM 15 GM TOPICAL SCH ×2 (12:29→21:00)
[2017-01-05] MEDS: FONDAPARINUX SODIUM 2.5 MG/0.5 ML SYRINGE SQ SCH (21:30)
[2017-01-05] MEDS: CHLORHEXIDINE GLUCONATE 2 % 1 PACK (2 CLOTHS) TOP SCH (21:31)
[2017-01-05] MEDS: diphenhydrAMINE HCL 25 MG CAP PO PRN (21:47)
[2017-01-06] VITALS: BP 146/79; PULSE 73; RESP 20; TEMP 97.5; O2SAT 95
[2017-01-06 05:52] LABS: HEMATOCRIT 27.8 % (39.0-51.0); MEAN CELL VOLUME 91.3 FL (80.0-100.0); MEAN CORPUSCULAR HEMOGLOBIN 30.3 PG (27.0-34.0); MEAN CORPUSCULAR HGB CONC 33.1 % (32.0-36.0); PLATELET COUNT 126 TH/MM3 (150-450); RED BLOOD COUNT 3.05 MIL/MM3 (4.50-5.90); REVIEW FLAG FINAL; WHITE BLOOD COUNT 7.6 TH/MM3 (4.0-11.0)
[2017-01-06 06:03] LABS: ALT (GPT) 17 U/L (12-78); ANION GAP 10 MEQ/L (5-15); AST (GOT) 31 U/L (15-37); BLOOD UREA NITROGEN 21 MG/DL (7-18); CHLORIDE 106 MEQ/L (98-107); GLOMERULAR FILTRATION RATE 42 ML/MIN (>89); POTASSIUM 5.2 MEQ/L (3.5-5.1); SODIUM (NA) 139 MEQ/L (136-145)
[2017-01-06 06:06] LABS: ALKALINE PHOSPHATASE 138 U/L (45-117); TOTAL BILIRUBIN ADULT 0.6 MG/DL (0.2-1.0)
[2017-01-06] MEDS: INSULIN ASPART SUPPLEMENTAL SCALE SQ SCH ×4 (06:15→20:27)
[2017-01-06 08:00] VITALS: BP 155/67; PULSE 76; RESP 16; TEMP 95.7; O2SAT 95
[2017-01-06] MEDS: MULTIVITAMINS/MINERALS THERAPEUTIC TAB PO SCH ×2 (08:21→20:27)
[2017-01-06] MEDS: DOCUSATE SODIUM 50 MG/SENNA 8.6 MG TAB PO SCH ×2 (08:21→20:27)
[2017-01-06] MEDS: CITALOPRAM HYDROBROMIDE 20 MG TAB PO SCH (08:21)
[2017-01-06] MEDS: AMOXICILLIN/CLAVULANATE K 875 MG TAB PO SCH ×2 (08:21→20:27)
[2017-01-06] MEDS: FAMOTIDINE 20 MG/2 ML VIAL IV PUSH SCH ×2 (08:21→20:27)
[2017-01-06] MEDS: DOCUSATE SODIUM 100 MG CAP PO SCH ×2 (08:21→20:27)
[2017-01-06] MEDS: LACTOBACILLUS ACIDOPHILUS 1 GM PACKET PO SCH ×3 (08:21→17:45)
[2017-01-06] MEDS: ARIPiprazole 5 MG TAB PO SCH (08:21)
[2017-01-06] MEDS: MUPIROCIN 2% CREAM 15 GM TOPICAL SCH ×2 (08:21→20:28)
[2017-01-06] MEDS: SODIUM CHLORIDE 0.9% FLUSH 10 ML FLUSH IV FLUSH SCH ×2 (08:22→20:26)
[2017-01-06] MEDS: oxyCODONE/ACETAMINOPHEN 5 MG/325 MG TAB PO PRN ×3 (08:24→22:45)
[2017-01-06] MEDS: CYCLOBENZAPRINE HCL 10 MG TAB PO PRN ×2 (08:25→17:45)
--- NOTE | 2017-01-06 08:55 | HHI.FPPN ---
Subjective Remarks Patient states he is doing well this morning. He worked with physical therapy 2 times yesterday. Discussed with nursing to remove the Arthur. Continues to have intermittent pain and spasms at the amputation site. Medications help. Denies fever, chills, nausea, vomiting. (Freddie Barahona MD R2) Objective Vitals Vital Signs Date Time Temp Pulse Resp B/P Pulse Ox O2 Delivery O2 Flow Rate FiO2 01/06/17 00:00 97.5 73 20 146/79 95 01/05/17 22:02 95 01/05/17 20:00 98.1 75 20 145/78 100 01/05/17 17:51 95 21 01/05/17 16:00 95.4 69 16 122/66 97 01/05/17 12:00 96.6 79 16 143/64 90 I/O 01/05/17 01/05/17 01/05/17 01/06/17 01/06/17 01/06/17 06:59 14:59 22:59 06:59 14:59 22:59 Intake Total 3197 ml 1600 ml 1510 ml 1135 ml Output Total 700 ml 1425 ml 800 ml 1450 ml Balance 2497 ml 175 ml 710 ml -315 ml Intake Oral 480 ml 960 ml 360 ml 0 ml IV Total 2717 ml 640 ml 1150 ml 1135 ml Output Urine Total 700 ml 1425 ml 800 ml 1450 ml # Bowel Movements 0 (Freddie Barahona MD R2) Result Diagram: 01/06/17 04501/06/17 045 Objective Remarks GENERAL: This is a well-nourished, well-developed patient, with depressed affect SKIN: Status post left BKA. Currently wrapped per wound care. HEAD: Atraumatic. Normocephalic. CARDIOVASCULAR: RRR RESPIRATORY: Clear to auscultation. Breath sounds equal bilaterally. No wheezes , rales, or rhonchi. GASTROINTESTINAL: Abdomen soft, non-tender, nondistended. No hepato-splenomegaly , or palpable masses. No guarding. MUSCULOSKELETAL: Status post left BKA. NEUROLOGICAL: Awake and alert. Cranial nerves grossly intact (Freddie Barahona MD R2) A/P Assessment and Plan 56-year-old male with a past medical history of complicated type 2 diabetes presented meeting sepsis criteria with diabetic left foot wound. Postop day #5 status post left BKA. Orthopedic surgery has cleared patient for discharge from their perspective. Requesting physical therapy to work with the patient twice a day, even through weekend/holiday. Discharge Planning Patient cleared from orthopedic standpoint. Case management consulted for discharge needs. Likely to rehabilitation facility. Physical therapy consult (Freddie Barahona MD R2) Attending Attestation Patient seen and examined, discussed with resident team. I agree with assessment and management as documented and discussed with me. Patient resting comfortably. Encourage continued work with PT. Potassium 5.2 today (Andie Guerrero MD) Problem List: (1) Diabetic foot ulcer Status: Chronic Plan: Podiatry consulted Infectious disease consult Physical therapy consult Orthopedic surgery consult Postop day #5 status post left BKA-okay for discharge from an orthopedic standpoint. Orthopedics will be available as needed. Pain control: Percocet 1 tab every 4 hours when necessary pain 1-5, 2 tabs pain 6-10 Antibiotics: Per infectious disease on 01/02-IV antibiotics can be discontinued and patient can be placed on by mouth Augmentin. Augmentin 875 mg every 12 hours (started 01/02) for a 5 day course. Expected stop date at the end of 01/06 Antibiotic history: Clindamycin IV discontinued (12/22-12/28) Zosyn also discontinued (12/22-12/26) Antibiotics per ID: Unasyn IV every 6 hours discontinued ( 12/26-01/01) History: -12/23: Status post left foot ankle incision drainage debridement partial resection of the 5th metatarsal head. -Intraoperative findings of metatarsal resection show severe necrosis down to periosteum of the midfoot, abscess severe. Wound culture: Staph aureus, enterococcus, mixed anaerobes Blood Cultures positive as listed under sepsis Most recent blood cultures from 12/25 no growth after 5 days Bone pathology left fifth metatarsal showing acute osteomyelitis (2) Anemia Status: Chronic Plan: Hematology consult Likely secondary to chronic infection and recent BKA. Peripheral smear shows normochromic normocytic anemia Status post 2 units packed red blood cells on 12/22. Status post 2 units packed red blood cells on 12/25. Status post 2 units packed red blood cells on 12/31 Status post 2 units packed red blood cells on 01/04. Continue to monitor; transfuse when less than 7 Hgb appropriately uptrended 01/05 s/p 2 units PRBCs Hemoccult Order as below. If positive, consider GI consultation. Labs: Vitamin B12, B1, folate within normal limits. Iron, TIBC indicative of chronic inflammation. Hemoccult ordered and discussed with nurse importance of this order. (3) TAYLOR (acute kidney injury) Status: Acute Plan: Improving Nephrology previously consulted, now available as needed. Continue IV fluids to 160 mL's per hour. Good urine output (4) Stage 1 decubitus ulcer in diabetic patient Status: Acute Plan: Notified 01/03 at 11 AM of stage I decubitus at the patient's sacrum. Wound care nursing consult Offload areas of pressure per protocol Continue to work with physical therapy Soft mattress order Further orders per wound care (5) Diabetes Status: Chronic Plan: -Hemoglobin A1c on 12/11 was 6.9 Sliding scale insulin while in hospital. Patient has had diarrhea on metformin, likely will need to be discontinued as an outpatient and put on glipizide (6) Social issues Status: Acute Plan: Patient lives with his 90-year-old aunt who has dementia and is unable to take care of the patient on discharge. Case management consulted to assist with disposition. Likely to rehabilitation facility. (7) Anxiety and depression Status: Acute Plan: -Continue home Abilify 5 mg by mouth daily and Celexa 10 mg by mouth daily -Psychiatry consulted: Diagnosed with dysthymia; he has appropriate follow-up with psychiatry services in the community (8) FEN/DVT PPX/GI PPX Status: Acute Plan: Fluids: Normal saline at 160 mL per hour Electrolytes: Will monitor and replace as needed Nutrition: Diabetic diet DVT Prophylaxis: Fondaparinux per orthopedic surgery. Okay from hematology to be on heparin prophylactically because of false positive HIT. GI Prophylaxis: Famotidine 10 mg IV every 12 hours (9) Sepsis Status: Resolved Plan: Infectious disease consult Vitals currently stable. Sources of sepsis is left foot wound. See antibiotic management under diabetic foot wound Blood cultures 12/21: Pasteurella, Staphylococcus aureus Blood cultures 12/25: No growth after 5 days (10) HIT (heparin-induced thrombocytopenia) Status: Resolved Plan: Hematology consult Serotonin release assay negative. HIT positive is likely a false positive result Continue to monitor platelets Patient has been started on fondaparinux per hematology Medical history: Heparin discontinued Argatroban discontinued per hematology (Freddie Barahona MD R2) Problem Qualifiers (1) Diabetic foot ulcer: Qualified Code: E11.621 - Diabetic ulcer of toe of left foot associated with type 2 diabetes mellitus, unspecified ulcer stage (2) Anemia: Qualified Code: D64.9 - Anemia, unspecified type (3) Diabetes: Qualified Code: E11.42 - Type 2 diabetes mellitus with diabetic polyneuropathy , without long-term current use of insulin (4) Sepsis: Qualified Code: A41.9 - Sepsis, due to unspecified organism Freddie Barahona MD R2 January 06, 2017 08:55 Andie Guerrero MD January 06, 2017 11:37
[2017-01-06] MEDS: SODIUM CHLOR 0.9% 1000 ML INJ 1,000 ML IV SCH ×3 (11:01→20:28)
[2017-01-06 12:00] VITALS: BP 164/70; PULSE 81; RESP 16; TEMP 96.3; O2SAT 94
[2017-01-06 16:00] VITALS: BP 169/77; PULSE 77; RESP 16; TEMP 97.5; O2SAT 96
[2017-01-06 20:00] VITALS: BP 136/65; PULSE 79; RESP 22; TEMP 97.5; O2SAT 93
[2017-01-06] MEDS: CHLORHEXIDINE GLUCONATE 2 % 1 PACK (2 CLOTHS) TOP SCH (20:28)
[2017-01-06] MEDS: FONDAPARINUX SODIUM 2.5 MG/0.5 ML SYRINGE SQ SCH (21:30)
[2017-01-06] MEDS: diphenhydrAMINE HCL 25 MG CAP PO PRN (22:45)
[2017-01-07] VITALS: BP 175/79; PULSE 76; RESP 22; TEMP 96.8; O2SAT 93
[2017-01-07 04:00] VITALS: BP 153/77; PULSE 72; RESP 20; TEMP 96.3; O2SAT 96
[2017-01-07 06:04] LABS: BASOPHIL % 0.2 % (0.0-2.0); EOSINOPHIL # 0.1 TH/MM3 (0-0.4); EOSINOPHIL % 1.5 % (0.0-4.0); HEMATOCRIT 26.5 % (39.0-51.0); LYMPH % 20.8 % (9.0-44.0); LYMPHOCYTE # 1.1 TH/MM3 (1.0-4.8); MEAN CELL VOLUME 90.2 FL (80.0-100.0); MEAN CORPUSCULAR HEMOGLOBIN 30.4 PG (27.0-34.0); MEAN CORPUSCULAR HGB CONC 33.7 % (32.0-36.0); MONO % 20.8 % (0.0-8.0); NEUT % 56.7 % (16.0-70.0); PLATELET COUNT 123 TH/MM3 (150-450); RED BLOOD COUNT 2.94 MIL/MM3 (4.50-5.90); RED CELL DISTRIBUTION WIDTH 17.2 % (11.6-17.2); WHITE BLOOD COUNT 5.3 TH/MM3 (4.0-11.0)
[2017-01-07 06:06] LABS: HEMO FLAGS AUTO DIFF
[2017-01-07 06:42] LABS: ALT (GPT) 15 U/L (12-78); ANION GAP 8 MEQ/L (5-15); AST (GOT) 25 U/L (15-37); BICARBONATE 25.2 MEQ/L (21.0-32.0); BLOOD UREA NITROGEN 21 MG/DL (7-18); CHLORIDE 106 MEQ/L (98-107); GLOMERULAR FILTRATION RATE 48 ML/MIN (>89); MAGNESIUM 1.8 MG/DL (1.5-2.5); POTASSIUM 4.8 MEQ/L (3.5-5.1); SODIUM (NA) 139 MEQ/L (136-145)
[2017-01-07 06:44] LABS: ALKALINE PHOSPHATASE 122 U/L (45-117); TOTAL BILIRUBIN ADULT 0.5 MG/DL (0.2-1.0)
[2017-01-07] MEDS: INSULIN ASPART SUPPLEMENTAL SCALE SQ SCH ×4 (07:00→21:00)
--- NOTE | 2017-01-07 07:47 | HHI.FPPN ---
Subjective Remarks Patient seen and examined this morning. Worked with physical therapy twice yesterday. D/W nursing. Arthur was removed yesterday, urinating well on own. Has a rash on chest and arms for past several days, now worsening. Benadryl by mouth is not helping. Rash itches for 10-15 minutes at a time and then stops. Does keep him up at night at times. He denies having any allergies to anything in the past. Has not had reactions to soaps or laundry detergents in the past. Continues to have intermittent pain and spasms at the amputation site which is improved when he takes the pain medication. Denies chest pain or tightness, fever, chills, nausea, vomiting. Patient reports no trouble with urination. (Chel Self MD) Objective Vitals Vital Signs Date Time Temp Pulse Resp B/P Pulse Ox O2 Delivery O2 Flow Rate FiO2 01/07/17 04:00 96.3 72 20 153/77 96 01/07/17 00:00 96.8 76 22 175/79 93 01/06/17 20:00 97.5 79 22 136/65 93 01/06/17 16:00 97.5 77 16 169/77 96 01/06/17 12:00 96.3 81 16 164/70 94 01/06/17 08:00 95.7 76 16 155/67 95 I/O 01/06/17 01/06/17 01/06/17 01/07/17 01/07/17 01/07/17 07:00 15:00 23:00 07:00 15:00 23:00 Intake Total 1135 ml 960 ml 1585 ml 1690 ml Output Total 1450 ml 400 ml 500 ml 1500 ml Balance -315 ml 560 ml 1085 ml 190 ml Intake Oral 0 ml 960 ml 320 ml 480 ml IV Total 1135 ml 1265 ml 1210 ml Output Urine Total 1450 ml 400 ml 500 ml 1500 ml # Bowel Movements 2 0 0 (Chel Self MD) Result Diagram: 01/07/17 0530 01/07/17 0530 Imaging Last Impressions Renal Ultrasound 12/25/16 0000 Signed Impressions: Service Date/Time: Sunday, December 25, 2016 13:28 - CONCLUSION: 1. Unremarkable ultrasound examination of the kidneys. Hang Lin MD Foot X-Ray 12/23/16 0000 Signed Impressions: Service Date/Time: Friday, December 23, 2016 09:40 - CONCLUSION: Soft tissue swelling and post surgical changes. Laureano Grider MD Foot MRI 12/22/16 0000 Signed Impressions: Service Date/Time: Thursday, December 22, 2016 16:49 - CONCLUSION: 1. Diffuse marrow edema involving the remaining portion of the left 5th metatarsal with extensive overlying soft-tissue swelling. The findings raise the possibility of osteomyelitis of the 5th metatarsal and overlying cellulitis. Clinical correlation is recommended. 2. Questionable nondisplaced fractures involving the bases of the left 3rd and 4th metatarsals with some associated marrow edema. Shade Kee MD Chest X-Ray 12/21/160 Signed Impressions: Service Date/Time: Wednesday, December 21, 2016 22:20 - CONCLUSION: No acute disease. Paramjit Bae MD Objective Remarks GENERAL: This is a well-nourished, well-developed patient, with depressed affect. SKIN: Status post left BKA. Currently wrapped per wound care. Diffuse maculopapular rash over anterior chest and bilateral arms. HEAD: Atraumatic. Normocephalic. CARDIOVASCULAR: RRR RESPIRATORY: Clear to auscultation. Breath sounds equal bilaterally. No wheezes , rales, or rhonchi. GASTROINTESTINAL: Abdomen soft, non-tender, nondistended. No hepato-splenomegaly , or palpable masses. No guarding. MUSCULOSKELETAL: Status post left BKA. NEUROLOGICAL: Awake and alert. Cranial nerves grossly intact. PSYCH: Depressed mood and affect (Chel Self MD) Urinary Catheter: No (Chel Self MD) A/P Assessment and Plan 56-year-old male with a past medical history of complicated type 2 diabetes presented meeting sepsis criteria with diabetic left foot wound. Postop day #6 status post left BKA. Orthopedic surgery has cleared patient for discharge from their perspective. Requesting physical therapy to work with the patient twice a day, even through weekend/holiday. Discharge Planning Patient cleared from orthopedic standpoint. Case management consulted for discharge needs. Likely to rehabilitation facility. Physical therapy consulted (Chel Self MD) Attending Attestation Patient seen and examined, discussed with resident team. I agree with assessment and management as documented and discussed with me. Pt complains of itchy rash as above. Suspect drug reaction from either augmentin or pain medication. Encouraged patient to continue to work with PT. (Andie Guerrero MD) Problem List: (1) Diabetic foot ulcer Status: Chronic Plan: Podiatry consulted Infectious disease consult Physical therapy consult Orthopedic surgery consult Postop day #6 status post left BKA-okay for discharge from an orthopedic standpoint. Orthopedics will be available as needed. Pain control: D/c Percocet 2/2 rash. Switch to Lortab 1 tab every 4 hours when necessary pain 1-5, 2 tabs pain 6-10 Antibiotics: Per infectious disease on 01/02-IV antibiotics can be discontinued and patient can be placed on by mouth Augmentin. Augmentin 875 mg every 12 hours (started 01/02) for a 5 day course. Stopped now , last dose was 01/06. Antibiotic history: Clindamycin IV discontinued (12/22-12/28) Zosyn also discontinued (12/22-12/26) Antibiotics per ID: Unasyn IV every 6 hours discontinued ( 12/26-01/01) History: -12/23: Status post left foot ankle incision drainage debridement partial resection of the 5th metatarsal head. -Intraoperative findings of metatarsal resection show severe necrosis down to periosteum of the midfoot, abscess severe. Wound culture: Staph aureus, enterococcus, mixed anaerobes Blood Cultures positive as listed under sepsis Most recent blood cultures from 12/25 no growth after 5 days Bone pathology left fifth metatarsal showing acute osteomyelitis (2) Skin rash Status: Acute Plan: May be related to antibiotic Augmentin (started 01/02-01/06) which is dc'd as of today. Could also be related to pain medications (PO percocet was started 01/04-). -Change to Lortab, d/c Percocet -Topical hydrocortisone cream PRN -Continue Benadryl PRN (3) Anemia Status: Chronic Plan: Hematology consulted Likely secondary to chronic infection and recent BKA. Peripheral smear shows normochromic normocytic anemia Status post 2 units packed red blood cells on 12/22. Status post 2 units packed red blood cells on 12/25. Status post 2 units packed red blood cells on 12/31 Status post 2 units packed red blood cells on 01/04. Continue to monitor; transfuse when less than 7 Hgb appropriately uptrended 01/05 s/p 2 units PRBCs Hemoccult Order as below. If positive, consider GI consultation. Labs: Vitamin B12, B1, folate within normal limits. Iron, TIBC indicative of chronic inflammation. Hemoccult ordered and discussed with nurse importance of this order. (4) TAYLOR (acute kidney injury) Status: Acute Plan: Improving Nephrology previously consulted, now available as needed. Continue IV fluids to 160 mL's per hour. Good urine output (5) Stage 1 decubitus ulcer in diabetic patient Status: Acute Plan: Notified 01/03 at 11 AM of stage I decubitus at the patient's sacrum. Wound care nursing consulted Offload areas of pressure per protocol Continue to work with physical therapy Soft mattress order Further orders per wound care (6) Diabetes Status: Chronic Plan: -Hemoglobin A1c on 12/11 was 6.9 Sliding scale insulin while in hospital. Patient has had diarrhea on metformin, likely will need to be discontinued as an outpatient and put on glipizide (7) Social issues Status: Acute Plan: Patient lives with his 90-year-old aunt who has dementia and is unable to take care of the patient on discharge. Case management consulted to assist with disposition. Likely to rehabilitation facility. (8) Anxiety and depression Status: Acute Plan: -Continue home Abilify 5 mg by mouth daily and Celexa 10 mg by mouth daily -Psychiatry consulted: Diagnosed with dysthymia; he has appropriate follow-up with psychiatry services in the community (9) Sepsis Status: Resolved Plan: Infectious disease consult Vitals currently stable. Sources of sepsis is left foot wound. See antibiotic management under diabetic foot wound Blood cultures 12/21: Pasteurella, Staphylococcus aureus Blood cultures 12/25: No growth after 5 days (10) HIT (heparin-induced thrombocytopenia) Status: Resolved Plan: Hematology consult Serotonin release assay negative. HIT positive is likely a false positive result Continue to monitor platelets Patient has been started on fondaparinux per hematology Medical history: Heparin discontinued Argatroban discontinued per hematology (11) FEN/DVT PPX/GI PPX Status: Acute Plan: Fluids: Normal saline at 160 mL per hour Electrolytes: Will monitor and replace as needed Nutrition: Diabetic diet DVT Prophylaxis: Fondaparinux per orthopedic surgery. Okay from hematology to be on heparin prophylactically because of false positive HIT. GI Prophylaxis: Famotidine 10 mg IV every 12 hours (Chel Self MD) Problem Qualifiers (1) Diabetic foot ulcer: Qualified Code: E11.621 - Diabetic ulcer of toe of left foot associated with type 2 diabetes mellitus, unspecified ulcer stage (2) Anemia: Qualified Code: D64.9 - Anemia, unspecified type (3) Diabetes: Qualified Code: E11.42 - Type 2 diabetes mellitus with diabetic polyneuropathy , without long-term current use of insulin (4) Sepsis: Qualified Code: A41.9 - Sepsis, due to unspecified organism Chel Self MD January 07, 2017 07:47 Andie Guerrero MD January 07, 2017 12:39
[2017-01-07 08:00] VITALS: BP 171/77; PULSE 76; RESP 18; TEMP 97.2; O2SAT 95
[2017-01-07] MEDS: ARIPiprazole 5 MG TAB PO SCH (08:28)
[2017-01-07] MEDS: FAMOTIDINE 20 MG/2 ML VIAL IV PUSH SCH ×2 (08:28→20:04)
[2017-01-07] MEDS: AMOXICILLIN/CLAVULANATE K 875 MG TAB PO SCH (08:28)
[2017-01-07] MEDS: CITALOPRAM HYDROBROMIDE 20 MG TAB PO SCH (08:28)
[2017-01-07] MEDS: LACTOBACILLUS ACIDOPHILUS 1 GM PACKET PO SCH ×3 (08:29→17:03)
[2017-01-07] MEDS: DOCUSATE SODIUM 50 MG/SENNA 8.6 MG TAB PO SCH ×2 (08:29→20:04)
[2017-01-07] MEDS: MULTIVITAMINS/MINERALS THERAPEUTIC TAB PO SCH ×2 (08:29→20:04)
[2017-01-07] MEDS: SODIUM CHLORIDE 0.9% FLUSH 10 ML FLUSH IV FLUSH SCH ×2 (08:29→20:06)
[2017-01-07] MEDS: DOCUSATE SODIUM 100 MG CAP PO SCH ×2 (08:29→20:04)
[2017-01-07] MEDS: MUPIROCIN 2% CREAM 15 GM TOPICAL SCH ×2 (08:30→20:06)
[2017-01-07] MEDS: SODIUM CHLOR 0.9% 1000 ML INJ 1,000 ML IV SCH ×3 (08:37→23:00)
[2017-01-07] MEDS ORDERED: HYDROCORTISONE 2.5% CREAM 30 GM TOPICAL PRN (09:15)
[2017-01-07] MEDS ORDERED: ACETAMINOPHEN/HYDROcodone 325 MG/5 MG TAB PO PRN (09:15)
[2017-01-07 09:32] LABS: BANDS 9 % (0-6); EOSINOPHILS 2 % (0-4); MYELOCYTES 1 % (0-0); NEUTROPHIL # MANUAL DIFF 3.4 TH/MM3 (1.8-7.7); PLATELET ESTIMATE SMEAR LOW (NORMAL); PLATELET MORPHOLOGY NORMAL (NORMAL); POLYS (SEG NEUTROPHILS) 54 % (16-70); SCAN/DIFF FINAL DIFF MANUAL; WBC DIFF SAMPLE 100
[2017-01-07] MEDS: ACETAMINOPHEN/HYDROcodone 325 MG/5 MG TAB PO PRN ×2 (11:50→20:21)
[2017-01-07 12:00] VITALS: BP 165/70; PULSE 80; RESP 18; TEMP 97.7; O2SAT 93
[2017-01-07] MEDS ORDERED: LIDOCAINE HCL 1% 50 ML VIAL ONE (15:56)
--- NOTE | 2017-01-07 15:58 | PD.ORT.PN ---
Subjective Post Op Day #: 6 Subjective Remarks Patient sitting upright in bed, awake and alert and answering questions appropriately. He admits left lower extremity muscle spasms have subsided. He has gotten up to a chair and has used a wheelchair successfully. Awaiting rehab placement. Objective Vitals Vital Signs Date Time Temp Pulse Resp B/P Pulse Ox O2 Delivery O2 Flow Rate FiO2 01/07/17 12:00 97.7 80 18 165/70 93 01/07/17 08:00 97.2 76 18 171/77 95 01/07/17 04:00 96.3 72 20 153/77 96 01/07/17 00:00 96.8 76 22 175/79 93 01/06/17 20:00 97.5 79 22 136/65 93 01/06/17 16:00 97.5 77 16 169/77 96 I/O 01/06/17 01/06/17 01/06/17 01/07/17 01/07/17 01/07/17 07:00 15:00 23:00 07:00 15:00 23:00 Intake Total 1135 ml 960 ml 1585 ml 1690 ml 1199 ml Output Total 1450 ml 400 ml 500 ml 1500 ml Balance -315 ml 560 ml 1085 ml 190 ml 1199 ml Intake Oral 0 ml 960 ml 320 ml 480 ml IV Total 1135 ml 1265 ml 1210 ml 1199 ml Output Urine Total 1450 ml 400 ml 500 ml 1500 ml # Bowel Movements 2 0 0 Result Diagram: 01/07/17 0530 01/07/17 0530 Imaging Last Impressions Renal Ultrasound 12/25/16 0000 Signed Impressions: Service Date/Time: Sunday, December 25, 2016 13:28 - CONCLUSION: 1. Unremarkable ultrasound examination of the kidneys. Hang Lin MD Foot X-Ray 12/23/16 0000 Signed Impressions: Service Date/Time: Friday, December 23, 2016 09:40 - CONCLUSION: Soft tissue swelling and post surgical changes. Laureano Grider MD Foot MRI 12/22/16 0000 Signed Impressions: Service Date/Time: Thursday, December 22, 2016 16:49 - CONCLUSION: 1. Diffuse marrow edema involving the remaining portion of the left 5th metatarsal with extensive overlying soft-tissue swelling. The findings raise the possibility of osteomyelitis of the 5th metatarsal and overlying cellulitis. Clinical correlation is recommended. 2. Questionable nondisplaced fractures involving the bases of the left 3rd and 4th metatarsals with some associated marrow edema. Shade Kee MD Chest X-Ray 12/21/162149 Signed Impressions: Service Date/Time: Wednesday, December 21, 2016 22:20 - CONCLUSION: No acute disease. Paramjit Bae MD Procedures Left below-knee amputation (01/01/17) Objective Remarks LLE: BKA. Dressing removed. Superficial necrosis noted around sutures/incision line. Incision line is healing well. Stump is warm with good cap refill. There are small blisters formed on the anterior aspect of his anterior mckenzie. A darkened, bruised area, 1cm in size anterior to knee. He is able to do a straight leg raise and bend his knee without difficulty. Examination with Dr. Moctezuma and myself. Assessment & Plan Ortho Post Op Day #: 6 Problem List: (1) Osteomyelitis of left foot (2) Sepsis (3) Anaerobic bacterial infection (4) Cellulitis (5) Diabetes (6) Hyperlipidemia Assessment and Plan The patient's orthopedic status is stable postoperatively #6. Reviewed with Dr. Moctezuma. Daily dressing changes (4x4, soft roll, nabor wrap above knee). Keep CKS on while in bed. Ok to come out of splint for gentle ROM of knee / to sit in chair. Clear for discharge from an orthopedic standpoint when medically stable and arrangements made per case management. Follow up with Dr. Moctezuma in 1 week for suture removal and wound check. Amaris Vidal January 07, 2017 15:58
[2017-01-07 16:00] VITALS: BP 170/76; PULSE 78; RESP 18; TEMP 95.9; O2SAT 94
[2017-01-07 20:00] VITALS: BP 177/76; PULSE 81; RESP 20; TEMP 98.1; O2SAT 96
[2017-01-07] MEDS: cloNIDine HCL 0.1 MG TAB PO PRN (20:05)
[2017-01-07] MEDS: FONDAPARINUX SODIUM 2.5 MG/0.5 ML SYRINGE SQ SCH (20:05)
[2017-01-08] VITALS: BP 144/69; PULSE 70; RESP 18; TEMP 96.7; O2SAT 95
[2017-01-08] MEDS: CHLORHEXIDINE GLUCONATE 2 % 1 PACK (2 CLOTHS) TOP SCH (04:00)
[2017-01-08 05:38] LABS: HEMATOCRIT 27.7 % (39.0-51.0); MEAN CELL VOLUME 90.2 FL (80.0-100.0); MEAN CORPUSCULAR HEMOGLOBIN 29.8 PG (27.0-34.0); MEAN CORPUSCULAR HGB CONC 33.1 % (32.0-36.0); PLATELET COUNT 118 TH/MM3 (150-450); RED BLOOD COUNT 3.07 MIL/MM3 (4.50-5.90); RED CELL DISTRIBUTION WIDTH 16.9 % (11.6-17.2); REVIEW FLAG FINAL; WHITE BLOOD COUNT 5.4 TH/MM3 (4.0-11.0)
[2017-01-08 05:41] LABS: BICARBONATE 22.8 MEQ/L (21.0-32.0); POTASSIUM 4.8 MEQ/L (3.5-5.1)
[2017-01-08] MEDS: SODIUM CHLOR 0.9% 1000 ML INJ 1,000 ML IV SCH ×2 (05:58→14:31)
[2017-01-08] MEDS: INSULIN ASPART SUPPLEMENTAL SCALE SQ SCH ×4 (06:00→20:57)
[2017-01-08 08:00] VITALS: BP 178/78; PULSE 71; RESP 19; TEMP 97.4; O2SAT 98
[2017-01-08] MEDS: cloNIDine HCL 0.1 MG TAB PO PRN (08:10)
[2017-01-08] MEDS: FAMOTIDINE 20 MG/2 ML VIAL IV PUSH SCH ×2 (08:11→20:55)
[2017-01-08] MEDS: ACETAMINOPHEN/HYDROcodone 325 MG/5 MG TAB PO PRN ×2 (08:11→13:32)
[2017-01-08] MEDS: DOCUSATE SODIUM 100 MG CAP PO SCH ×2 (08:11→20:55)
[2017-01-08] MEDS: DOCUSATE SODIUM 50 MG/SENNA 8.6 MG TAB PO SCH ×2 (08:11→20:56)
[2017-01-08] MEDS: ARIPiprazole 5 MG TAB PO SCH (08:11)
[2017-01-08] MEDS: CITALOPRAM HYDROBROMIDE 20 MG TAB PO SCH (08:11)
[2017-01-08] MEDS: MULTIVITAMINS/MINERALS THERAPEUTIC TAB PO SCH ×2 (08:11→20:55)
[2017-01-08] MEDS: SODIUM CHLORIDE 0.9% FLUSH 10 ML FLUSH IV FLUSH SCH ×2 (08:12→20:55)
[2017-01-08] MEDS: LACTOBACILLUS ACIDOPHILUS 1 GM PACKET PO SCH ×3 (08:12→18:00)
[2017-01-08] MEDS: MUPIROCIN 2% CREAM 15 GM TOPICAL SCH ×2 (08:12→20:54)
--- NOTE | 2017-01-08 08:28 | HHI.FPPN ---
Subjective Remarks Patient is doing good this morning. He thinks his rash is getting better. It is less itchy. Denies chest pain, nausea, vomiting. No fever, chills. Pain is controlled with medications. (Freddie Barahona MD R2) Objective Vitals Vital Signs Date Time Temp Pulse Resp B/P Pulse Ox O2 Delivery O2 Flow Rate FiO2 01/08/17 00:00 96.7 70 18 144/69 95 01/07/17 20:00 98.1 81 20 177/76 96 01/07/17 16:00 95.9 78 18 170/76 94 01/07/17 12:00 97.7 80 18 165/70 93 I/O 01/07/17 01/07/17 01/07/17 01/08/17 01/08/17 01/08/17 06:59 14:59 22:59 06:59 14:59 22:59 Intake Total 1690 ml 2159 ml 1315 ml 1922 ml Output Total 1500 ml 1450 ml 1125 ml 2025 ml Balance 190 ml 709 ml 190 ml -103 ml Intake Oral 480 ml 960 ml 320 ml 480 ml IV Total 1210 ml 1199 ml 995 ml 1442 ml Output Urine Total 1500 ml 1450 ml 1125 ml 2025 ml # Bowel Movements 0 1 0 1 (Freddie Barahona MD R2) Result Diagram: 01/08/1742401/08/17424 Objective Remarks GENERAL: This is a well-nourished, well-developed patient, with depressed affect. SKIN: Status post left BKA. Currently wrapped per wound care. Improved macular papular rash on right arm and chest HEAD: Atraumatic. Normocephalic. CARDIOVASCULAR: RRR RESPIRATORY: Clear to auscultation. Breath sounds equal bilaterally. No wheezes , rales, or rhonchi. GASTROINTESTINAL: Abdomen soft, non-tender, nondistended. No hepato-splenomegaly , or palpable masses. No guarding. MUSCULOSKELETAL: Status post left BKA. NEUROLOGICAL: Awake and alert. Cranial nerves grossly intact. PSYCH: Depressed mood and affect (Freddie Barahona MD R2) A/P Assessment and Plan 56-year-old male with a past medical history of complicated type 2 diabetes presented meeting sepsis criteria with diabetic left foot wound. Postop day #7 status post left BKA. Requesting physical therapy to work with the patient twice a day Discharge Planning Patient cleared from orthopedic standpoint. Follow-up with orthopedic surgery one week from 01/07 (on 01/14) for suture removal and wound check. Case management consulted for discharge needs. Likely to rehabilitation facility. Physical therapy consulted (Freddie Barahona MD R2) Attending Attestation Patient seen and examined, discussed with resident team. I agree with assessment and management as documented and discussed with me. Pt reports rash is getting better; less itchy. He was again encouraged to work with PT to his fullest advantage. (Andie Guerrero MD) Problem List: (1) Diabetic foot ulcer Status: Chronic Plan: Podiatry consulted Infectious disease consult Physical therapy consult Orthopedic surgery consult Postop day #7 status post left BKA-okay for discharge from an orthopedic standpoint. Orthopedics will be available as needed. Pain control (Percocet DC secondary to rash): Lortab 1 tab every 4 hours when necessary pain 1-5, 2 tabs pain 6-10 Antibiotic history: Per infectious disease Augmentin 875 mg every 12 hours (started 01/02-01/06) Clindamycin IV discontinued (12/22-12/28) Zosyn also discontinued (12/22-12/26) Antibiotics per ID: Unasyn IV every 6 hours discontinued ( 12/26-01/01) History: -12/23: Status post left foot ankle incision drainage debridement partial resection of the 5th metatarsal head. -Intraoperative findings of metatarsal resection show severe necrosis down to periosteum of the midfoot, abscess severe. Wound culture: Staph aureus, enterococcus, mixed anaerobes Blood Cultures positive as listed under sepsis Most recent blood cultures from 12/25 no growth after 5 days Bone pathology left fifth metatarsal showing acute osteomyelitis (2) Skin rash Status: Acute Plan: Improving May be related to antibiotic Augmentin (started 01/02-01/06) which is dc'd as of today. Could also be related to pain medications (PO percocet was started 01/04-). -Change to Lortab, d/c Percocet -Topical hydrocortisone cream PRN -Continue Benadryl PRN (3) Anemia Status: Chronic Plan: Hematology consulted Stable Likely secondary to chronic infection and recent BKA. Peripheral smear shows normochromic normocytic anemia Status post 2 units packed red blood cells on 12/22. Status post 2 units packed red blood cells on 12/25. Status post 2 units packed red blood cells on 12/31 Status post 2 units packed red blood cells on 01/04. Continue to monitor; transfuse when less than 7 Labs: Vitamin B12, B1, folate within normal limits. Iron, TIBC indicative of chronic inflammation. Hemoccult: Negative (4) TAYLOR (acute kidney injury) Status: Acute Plan: Improving Nephrology previously consulted, now available as needed. Continue IV fluids to 80 mL's per hour. Good urine output (5) Stage 1 decubitus ulcer in diabetic patient Status: Acute Plan: Notified 01/03 at 11 AM of stage I decubitus at the patient's sacrum. Wound care nursing consulted Offload areas of pressure per protocol Continue to work with physical therapy Soft mattress order Further orders per wound care (6) Diabetes Status: Chronic Plan: -Hemoglobin A1c on 12/11 was 6.9 Sliding scale insulin while in hospital. Patient has had diarrhea on metformin, likely will need to be discontinued as an outpatient and put on glipizide (7) Social issues Status: Acute Plan: Patient lives with his 90-year-old aunt who has dementia and is unable to take care of the patient on discharge. Case management consulted to assist with disposition. Likely to rehabilitation facility. (8) Anxiety and depression Status: Acute Plan: -Continue home Abilify 5 mg by mouth daily and Celexa 10 mg by mouth daily -Psychiatry consulted: Diagnosed with dysthymia; he has appropriate follow-up with psychiatry services in the community (9) FEN/DVT PPX/GI PPX Status: Acute Plan: Fluids: Normal saline at 80 mL per hour Electrolytes: Will monitor and replace as needed Nutrition: Diabetic diet DVT Prophylaxis: Fondaparinux per orthopedic surgery. Okay from hematology to be on heparin prophylactically because of false positive HIT. GI Prophylaxis: Famotidine 10 mg IV every 12 hours (10) Sepsis Status: Resolved Plan: Infectious disease consult Vitals currently stable. Sources of sepsis is left foot wound. See antibiotic management under diabetic foot wound Blood cultures 12/21: Pasteurella, Staphylococcus aureus Blood cultures 12/25: No growth after 5 days (11) HIT (heparin-induced thrombocytopenia) Status: Resolved Plan: Hematology consult Serotonin release assay negative. HIT positive is likely a false positive result Continue to monitor platelets Patient has been started on fondaparinux per hematology Medical history: Heparin discontinued Argatroban discontinued per hematology (Freddie Barahona MD R2) Problem Qualifiers (1) Diabetic foot ulcer: Qualified Code: E11.621 - Diabetic ulcer of toe of left foot associated with type 2 diabetes mellitus, unspecified ulcer stage (2) Anemia: Qualified Code: D64.9 - Anemia, unspecified type (3) Diabetes: Qualified Code: E11.42 - Type 2 diabetes mellitus with diabetic polyneuropathy , without long-term current use of insulin (4) Sepsis: Qualified Code: A41.9 - Sepsis, due to unspecified organism Freddie Barahona MD R2 January 08, 2017 08:27 Andie Guerrero MD January 08, 2017 12:24
[2017-01-08 12:00] VITALS: BP 175/79; PULSE 73; RESP 19; TEMP 96.9; O2SAT 96
[2017-01-08 16:00] VITALS: BP 157/77; PULSE 59; RESP 20; TEMP 96.9; O2SAT 96
[2017-01-08 20:00] VITALS: BP 166/86; PULSE 69; RESP 20; TEMP 97.4; O2SAT 95
[2017-01-08] MEDS: FONDAPARINUX SODIUM 2.5 MG/0.5 ML SYRINGE SQ SCH (20:56)
[2017-01-09] VITALS: BP 163/75; PULSE 76; RESP 20; TEMP 97.5; O2SAT 96
[2017-01-09] MEDS: ACETAMINOPHEN/HYDROcodone 325 MG/5 MG TAB PO PRN ×3 (02:15→11:52)
[2017-01-09] MEDS: SODIUM CHLOR 0.9% 1000 ML INJ 1,000 ML IV SCH (03:01)
[2017-01-09] MEDS: CHLORHEXIDINE GLUCONATE 2 % 1 PACK (2 CLOTHS) TOP SCH (04:00)
[2017-01-09 05:47] LABS: AUTOMATED NEUTROPHIL # 2.8 TH/MM3 (1.8-7.7); BASOPHIL % 0.4 % (0.0-2.0); EOSINOPHIL # 0.1 TH/MM3 (0-0.4); EOSINOPHIL % 2.1 % (0.0-4.0); HEMATOCRIT 26.9 % (39.0-51.0); LYMPHOCYTE # 1.4 TH/MM3 (1.0-4.8); MEAN CELL VOLUME 90.9 FL (80.0-100.0); MEAN CORPUSCULAR HEMOGLOBIN 29.9 PG (27.0-34.0); MEAN CORPUSCULAR HGB CONC 32.9 % (32.0-36.0); MONO % 18.6 % (0.0-8.0); NEUT % 52.9 % (16.0-70.0); PLATELET COUNT 113 TH/MM3 (150-450); RED BLOOD COUNT 2.96 MIL/MM3 (4.50-5.90); RED CELL DISTRIBUTION WIDTH 17.3 % (11.6-17.2); WHITE BLOOD COUNT 5.3 TH/MM3 (4.0-11.0)
[2017-01-09 05:49] LABS: HEMO FLAGS AUTO DIFF
[2017-01-09] MEDS: INSULIN ASPART SUPPLEMENTAL SCALE SQ SCH ×4 (06:09→21:00)
[2017-01-09 06:23] LABS: ALT (GPT) 16 U/L (12-78); ANION GAP 8 MEQ/L (5-15); AST (GOT) 24 U/L (15-37); BICARBONATE 25.4 MEQ/L (21.0-32.0); BLOOD UREA NITROGEN 18 MG/DL (7-18); CHLORIDE 107 MEQ/L (98-107); GLOMERULAR FILTRATION RATE 54 ML/MIN (>89); POTASSIUM 4.7 MEQ/L (3.5-5.1); SODIUM (NA) 140 MEQ/L (136-145)
[2017-01-09 06:25] LABS: ALKALINE PHOSPHATASE 115 U/L (45-117); TOTAL BILIRUBIN ADULT 0.4 MG/DL (0.2-1.0)
[2017-01-09 06:41] LABS: BANDS 2 % (0-6); EOSINOPHILS 2 % (0-4); MYELOCYTES 1 % (0-0); NEUTROPHIL # MANUAL DIFF 3.2 TH/MM3 (1.8-7.7); POLYS (SEG NEUTROPHILS) 57 % (16-70); WBC DIFF SAMPLE 100
[2017-01-09 06:42] LABS: PLATELET ESTIMATE SMEAR LOW (NORMAL); PLATELET MORPHOLOGY NORMAL (NORMAL); SCAN/DIFF FINAL DIFF MANUAL
[2017-01-09 08:00] VITALS: BP 175/84; PULSE 73; RESP 17; TEMP 96.9; O2SAT 97
[2017-01-09] MEDS: LACTOBACILLUS ACIDOPHILUS 1 GM PACKET PO SCH ×3 (08:19→18:00)
[2017-01-09] MEDS: ARIPiprazole 5 MG TAB PO SCH (08:20)
[2017-01-09] MEDS: CITALOPRAM HYDROBROMIDE 20 MG TAB PO SCH (08:20)
[2017-01-09] MEDS: FAMOTIDINE 20 MG/2 ML VIAL IV PUSH SCH ×2 (08:20→21:56)
[2017-01-09] MEDS: DOCUSATE SODIUM 50 MG/SENNA 8.6 MG TAB PO SCH ×2 (08:20→21:00)
[2017-01-09] MEDS: DOCUSATE SODIUM 100 MG CAP PO SCH ×2 (08:20→21:00)
[2017-01-09] MEDS: SODIUM CHLORIDE 0.9% FLUSH 10 ML FLUSH IV FLUSH SCH ×2 (08:20→21:56)
[2017-01-09] MEDS: MULTIVITAMINS/MINERALS THERAPEUTIC TAB PO SCH ×2 (08:20→21:55)
[2017-01-09] MEDS: MUPIROCIN 2% CREAM 15 GM TOPICAL SCH ×2 (08:21→21:00)
[2017-01-09] MEDS: cloNIDine HCL 0.1 MG TAB PO PRN (08:24)
--- NOTE | 2017-01-09 08:33 | HHI.FPPN ---
Subjective Remarks Patient is doing well this morning. He states his rash has improved. Pain is controlled with medication. He is working with physical therapy and increasing the amount he is able to do. His blood pressure has been persistently elevated. Denies fever, chills, nausea, vomiting, constipation, diarrhea. ( Freddie Barahona MD R2) Objective Vitals Vital Signs Date Time Temp Pulse Resp B/P Pulse Ox O2 Delivery O2 Flow Rate FiO2 01/09/17 00:00 97.5 76 20 163/75 96 01/08/17 20:00 97.4 69 20 166/86 95 01/08/17 16:00 96.9 59 20 157/77 96 01/08/17 12:00 96.9 73 19 175/79 96 I/O 01/08/17 01/08/17 01/08/17 01/09/17 01/09/17 01/09/17 07:00 15:00 23:00 07:00 15:00 23:00 Intake Total 1922 ml 1080 ml 624 ml 1046 ml Output Total 2025 ml 3000 ml 2075 ml 1550 ml Balance -103 ml -1920 ml -1451 ml -504 ml Intake Oral 480 ml 1080 ml 240 ml 240 ml IV Total 1442 ml 384 ml 806 ml Output Urine Total 2025 ml 3000 ml 2075 ml 1550 ml # Bowel Movements 1 1 1 0 (Freddie Barahona MD R2) Result Diagram: 01/09/1751901/09/17519 Objective Remarks GENERAL: This is a well-nourished, well-developed patient, with depressed affect. SKIN: Status post left BKA. Currently wrapped per wound care. Improved macular papular rash on right arm and chest HEAD: Atraumatic. Normocephalic. CARDIOVASCULAR: RRR RESPIRATORY: Clear to auscultation. Breath sounds equal bilaterally. No wheezes , rales, or rhonchi. GASTROINTESTINAL: Abdomen soft, non-tender, nondistended. No hepato-splenomegaly , or palpable masses. No guarding. MUSCULOSKELETAL: Status post left BKA. NEUROLOGICAL: Awake and alert. Cranial nerves grossly intact. PSYCH: Depressed mood and affect (Freddie Barahona MD R2) A/P Assessment and Plan 56-year-old male with a past medical history of complicated type 2 diabetes presented meeting sepsis criteria with diabetic left foot wound. Postop day #8 status post left BKA. Requesting physical therapy to work with the patient twice a day Discharge Planning Patient cleared from orthopedic standpoint. Follow-up with orthopedic surgery one week from 01/07 (on 01/14) for suture removal and wound check. Case management consulted for discharge needs. Likely to [facility] on 01/10. Physical therapy consulted (Freddie Barahona MD R2) Attending Attestation Patient seen and examined, discussed with resident team. I agree with assessment and management as documented and discussed with me. Pt resting comfortably in bed. No new concerns. Anticipate discharge to [facility] soon once medicaid bed available. (Andie Guerrero MD) Problem List: (1) Diabetic foot ulcer Status: Chronic Plan: Podiatry consulted Infectious disease consult Physical therapy consult Orthopedic surgery consult Postop day #8 status post left BKA-okay for discharge from an orthopedic standpoint. Orthopedics will be available as needed. Pain control (Percocet DC secondary to rash): Lortab 1 tab every 4 hours when necessary pain 1-5, 2 tabs pain 6-10 Antibiotic history: Per infectious disease Augmentin 875 mg every 12 hours (started 01/02-01/06) Clindamycin IV discontinued (12/22-12/28) Zosyn also discontinued (12/22-12/26) Antibiotics per ID: Unasyn IV every 6 hours discontinued ( 12/26-01/01) History: -12/23: Status post left foot ankle incision drainage debridement partial resection of the 5th metatarsal head. -Intraoperative findings of metatarsal resection show severe necrosis down to periosteum of the midfoot, abscess severe. Wound culture: Staph aureus, enterococcus, mixed anaerobes Blood Cultures positive as listed under sepsis Most recent blood cultures from 12/25 no growth after 5 days Bone pathology left fifth metatarsal showing acute osteomyelitis (2) Skin rash Status: Acute Plan: Improving May be related to antibiotic Augmentin (started 01/02-01/06) which is dc'd as of today. Could also be related to pain medications (PO percocet was started 01/04-). -Change to Lortab, d/c Percocet -Topical hydrocortisone cream PRN -Continue Benadryl PRN (3) Hypertension Status: Chronic Plan: Patient's blood pressures have been persistently elevated. Holding Lisinopril 5 mg daily which was started in November. Patient's urine microalbumin high at 173. He also likely has chronic kidney disease with persistently elevated creatinine We'll start amlodipine 5 mg daily Follow with nephrology as an outpatient. (4) Hyperlipidemia Status: Acute Plan: -Labs from 12/11 show elevated LDL of 120 -10 year ASCVD risk score is 12% - recommendation is for a high-intensity statin -Start atorvastatin now (5) Anemia Status: Chronic Plan: Hematology consulted Stable Likely secondary to chronic infection and recent BKA. Peripheral smear shows normochromic normocytic anemia Status post 2 units packed red blood cells on 12/22. Status post 2 units packed red blood cells on 12/25. Status post 2 units packed red blood cells on 12/31 Status post 2 units packed red blood cells on 01/04. Continue to monitor; transfuse when less than 7 Labs: Vitamin B12, B1, folate within normal limits. Iron, TIBC indicative of chronic inflammation. Hemoccult: Negative (6) TAYLOR (acute kidney injury) Status: Acute Plan: Improving Nephrology previously consulted, now available as needed. Continue IV fluids to 80 mL's per hour. Good urine output (7) Stage 1 decubitus ulcer in diabetic patient Status: Acute Plan: Notified 01/03 at 11 AM of stage I decubitus at the patient's sacrum. Wound care nursing consulted Offload areas of pressure per protocol Continue to work with physical therapy Soft mattress order Further orders per wound care (8) Diabetes Status: Chronic Plan: -Hemoglobin A1c on 12/11 was 6.9 Sliding scale insulin while in hospital. Patient has had diarrhea on metformin, likely will need to be discontinued as an outpatient and put on glipizide (9) Social issues Status: Acute Plan: Patient lives with his 90-year-old aunt who has dementia and is unable to take care of the patient on discharge. Case management consulted to assist with disposition. Likely to [facility] on 01/10 (10) Anxiety and depression Status: Acute Plan: -Continue home Abilify 5 mg by mouth daily and Celexa 10 mg by mouth daily -Psychiatry consulted: Diagnosed with dysthymia; he has appropriate follow-up with psychiatry services in the community (11) FEN/DVT PPX/GI PPX Status: Acute Plan: Fluids: Normal saline at 80 mL per hour Electrolytes: Will monitor and replace as needed Nutrition: Diabetic diet DVT Prophylaxis: Fondaparinux per orthopedic surgery. Okay from hematology to be on heparin prophylactically because of false positive HIT. GI Prophylaxis: Famotidine 10 mg IV every 12 hours (12) Sepsis Status: Resolved Plan: Infectious disease consult Vitals currently stable. Sources of sepsis is left foot wound. See antibiotic management under diabetic foot wound Blood cultures 12/21: Pasteurella, Staphylococcus aureus Blood cultures 12/25: No growth after 5 days (13) HIT (heparin-induced thrombocytopenia) Status: Resolved Plan: Hematology consult Serotonin release assay negative. HIT positive is likely a false positive result Continue to monitor platelets Patient has been started on fondaparinux per hematology Medical history: Heparin discontinued Argatroban discontinued per hematology (Freddie Barahona MD R2) Problem Qualifiers (1) Diabetic foot ulcer: Qualified Code: E11.621 - Diabetic ulcer of toe of left foot associated with type 2 diabetes mellitus, unspecified ulcer stage (2) Hypertension: Qualified Code: I10 - Essential hypertension (3) Anemia: Qualified Code: D64.9 - Anemia, unspecified type (4) Diabetes: Qualified Code: E11.42 - Type 2 diabetes mellitus with diabetic polyneuropathy , without long-term current use of insulin (5) Sepsis: Qualified Code: A41.9 - Sepsis, due to unspecified organism Freddie Barahona MD R2 January 09, 2017 08:33 Andie Guerrero MD January 09, 2017 20:44
[2017-01-09] MEDS ORDERED: amLODIPine BESYLATE 5 MG TAB PO SCH (09:00)
[2017-01-09 12:00] VITALS: BP 164/80; PULSE 69; RESP 20; TEMP 97.8; O2SAT 95
[2017-01-09 16:00] VITALS: BP_SYST 144; BP_SYST 169; BP_DIAS 70; BP_DIAS 84; PULSE 81; PULSE 90; RESP 19; RESP 20; TEMP 97.8; O2SAT 96; O2SAT 99
[2017-01-09 20:00] VITALS: BP 166/74; PULSE 75; RESP 18; TEMP 96.6; O2SAT 96
[2017-01-09] MEDS: ATORVASTATIN 20 MG TAB PO SCH (21:55)
[2017-01-09] MEDS: FONDAPARINUX SODIUM 2.5 MG/0.5 ML SYRINGE SQ SCH (21:57)
[2017-01-10] VITALS: BP 171/81; PULSE 72; RESP 18; TEMP 96.9; O2SAT 95
[2017-01-10] MEDS: ACETAMINOPHEN/HYDROcodone 325 MG/5 MG TAB PO PRN ×3 (00:30→15:01)
[2017-01-10] MEDS: CHLORHEXIDINE GLUCONATE 2 % 1 PACK (2 CLOTHS) TOP SCH (04:00)
[2017-01-10 05:59] LABS: AUTOMATED NEUTROPHIL # 2.5 TH/MM3 (1.8-7.7); BASOPHIL % 0.4 % (0.0-2.0); EOSINOPHIL # 0.2 TH/MM3 (0-0.4); EOSINOPHIL % 3.1 % (0.0-4.0); HEMATOCRIT 29.5 % (39.0-51.0); LYMPHOCYTE # 1.7 TH/MM3 (1.0-4.8); MEAN CELL VOLUME 90.6 FL (80.0-100.0); MEAN CORPUSCULAR HEMOGLOBIN 29.5 PG (27.0-34.0); MEAN CORPUSCULAR HGB CONC 32.5 % (32.0-36.0); MONO % 16.3 % (0.0-8.0); NEUT % 47.2 % (16.0-70.0); PLATELET COUNT 121 TH/MM3 (150-450); RED BLOOD COUNT 3.26 MIL/MM3 (4.50-5.90); RED CELL DISTRIBUTION WIDTH 16.7 % (11.6-17.2); WHITE BLOOD COUNT 5.2 TH/MM3 (4.0-11.0)
[2017-01-10 06:04] LABS: HEMO FLAGS AUTO DIFF
[2017-01-10 06:22] LABS: ALT (GPT) 19 U/L (12-78); ANION GAP 5 MEQ/L (5-15); AST (GOT) 25 U/L (15-37); BICARBONATE 27.8 MEQ/L (21.0-32.0); BLOOD UREA NITROGEN 19 MG/DL (7-18); CHLORIDE 106 MEQ/L (98-107); GLOMERULAR FILTRATION RATE 49 ML/MIN (>89); POTASSIUM 4.6 MEQ/L (3.5-5.1); SODIUM (NA) 139 MEQ/L (136-145)
[2017-01-10 06:25] LABS: ALKALINE PHOSPHATASE 112 U/L (45-117); TOTAL BILIRUBIN ADULT 0.5 MG/DL (0.2-1.0)
[2017-01-10] MEDS: INSULIN ASPART SUPPLEMENTAL SCALE SQ SCH ×4 (06:27→21:00)
[2017-01-10 06:51] LABS: BANDS 5 % (0-6); MYELOCYTES 2 % (0-0); NEUTROPHIL # MANUAL DIFF 2.8 TH/MM3 (1.8-7.7); PLATELET ESTIMATE SMEAR LOW (NORMAL); POLYS (SEG NEUTROPHILS) 46 % (16-70); SCAN/DIFF FINAL DIFF MANUAL; WBC DIFF SAMPLE 100
[2017-01-10 06:52] LABS: PLATELET MORPHOLOGY NORMAL (NORMAL)
[2017-01-10] MEDS ORDERED: HYDR-3516 PO (07:28)
[2017-01-10] MEDS ORDERED: CELE20TA PO (07:28)
[2017-01-10 08:00] VITALS: BP 158/78; PULSE 69; RESP 18; TEMP 96.5; O2SAT 97
[2017-01-10] MEDS: DOCUSATE SODIUM 100 MG CAP PO SCH ×2 (08:34→21:00)
[2017-01-10] MEDS: CITALOPRAM HYDROBROMIDE 20 MG TAB PO SCH (08:34)
[2017-01-10] MEDS: ARIPiprazole 5 MG TAB PO SCH (08:34)
[2017-01-10] MEDS: DOCUSATE SODIUM 50 MG/SENNA 8.6 MG TAB PO SCH ×2 (08:34→21:00)
[2017-01-10] MEDS: MULTIVITAMINS/MINERALS THERAPEUTIC TAB PO SCH ×2 (08:34→22:33)
[2017-01-10] MEDS: SODIUM CHLORIDE 0.9% FLUSH 10 ML FLUSH IV FLUSH SCH ×2 (08:35→22:34)
[2017-01-10] MEDS: LACTOBACILLUS ACIDOPHILUS 1 GM PACKET PO SCH ×2 (08:35→13:00)
[2017-01-10] MEDS: FAMOTIDINE 20 MG/2 ML VIAL IV PUSH SCH (08:35)
[2017-01-10] MEDS ORDERED: AMLO10 PO (08:44)
[2017-01-10] MEDS ORDERED: ATOR20TA15 PO (08:44)
[2017-01-10] MEDS ORDERED: FONDAPARINUX SQ (08:44)
[2017-01-10] MEDS ORDERED: DOCU1CAP39 PO (08:44)
[2017-01-10] MEDS ORDERED: HYDR2.5C TOPICAL (08:44)
--- NOTE | 2017-01-10 08:46 | HHI.DCPOC ---
Discharge Care Plan Diagnosis: (1) Acute renal failure superimposed on stage 3 chronic kidney disease (2) Anxiety and depression (3) Diabetic foot ulcer (4) Stage 1 decubitus ulcer in diabetic patient (5) Osteomyelitis of left foot Goals to Promote Your Health * To prevent worsening of your condition and complications * To maintain your health at the optimal level Directions to Meet Your Goals Take your medications as prescribed Follow your dietary instruction Follow activity as directed Keep your appointments as scheduled Take your immunizations and boosters as scheduled If your symptoms worsen call your PCP, if no PCP go to Urgent Care Center or Emergency Room Smoking is Dangerous to Your Health. Avoid second hand smoke Call the 24-hour hour crisis hotline for domestic abuse at Freddie Barahona MD R2 Jan 10, 2017 08:46
[2017-01-10] MEDS ORDERED: GLIP5TAB8 PO (09:05)
--- NOTE | 2017-01-10 09:09 | HHI.FPPN ---
Subjective Remarks Patient is doing well this morning. He is looking forward to going to [facility]. He is planning on calling his cousin, Armand, to update him regarding his status. Denies fever, chills, nausea, vomiting, diarrhea. His pain is controlled with the medications. (Freddie Barahona MD R2) Objective Vitals Vital Signs Date Time Temp Pulse Resp B/P Pulse Ox O2 Delivery O2 Flow Rate FiO2 01/10/17 08:00 96.5 69 18 158/78 97 01/10/17 00:00 96.9 72 18 171/81 95 01/09/17 20:00 96.6 75 18 166/74 96 01/09/17 16:00 97.8 81 20 169/70 96 01/09/17 12:00 97.8 69 20 164/80 95 I/O 01/09/17 01/09/17 01/09/17 01/10/17 01/10/17 01/10/17 07:00 15:00 23:00 07:00 15:00 23:00 Intake Total 1046 ml 2160 ml 240 ml 120 ml Output Total 1550 ml 3300 ml 1725 ml 1500 ml Balance -504 ml -1140 ml -1485 ml -1380 ml Intake Oral 240 ml 2160 ml 240 ml 120 ml IV Total 806 ml Output Urine Total 1550 ml 3300 ml 1725 ml 1500 ml Stool Total 0 ml # Bowel Movements 0 0 0 (Freddie Barahona MD R2) Result Diagram: 01/10/17 0515 01/10/17 0515 Objective Remarks GENERAL: This is a well-nourished, well-developed patient, with depressed affect. SKIN: Status post left BKA. Currently wrapped per wound care. Improved macular papular rash on right arm and chest HEAD: Atraumatic. Normocephalic. CARDIOVASCULAR: RRR RESPIRATORY: Clear to auscultation. Breath sounds equal bilaterally. No wheezes , rales, or rhonchi. GASTROINTESTINAL: Abdomen soft, non-tender, nondistended. No hepato-splenomegaly , or palpable masses. No guarding. MUSCULOSKELETAL: Status post left BKA. NEUROLOGICAL: Awake and alert. Cranial nerves grossly intact. PSYCH: Depressed mood and affect (Freddie Barahona MD R2) A/P Assessment and Plan 56-year-old male with a past medical history of complicated type 2 diabetes presented meeting sepsis criteria with diabetic left foot wound. Postop day #9 status post left BKA. Requesting physical therapy to work with the patient twice a day Discharge Planning Patient cleared from orthopedic standpoint. Follow-up with orthopedic surgery one week from 01/07 (on 01/14) for suture removal and wound check. Case management consulted for discharge needs. Discharge to [facility] today. Physical therapy consulted (Freddie Barahona MD R2) Attending Attestation Patient seen and examined, discussed with resident team. I agree with assessment and management as documented and discussed with me. No new concerns. Await placement. Pt denied today from [facility]. Appreciate case management. (Andie Guerrero MD) Problem List: (1) Diabetic foot ulcer Status: Chronic Plan: Podiatry consulted Infectious disease consult Physical therapy consult Orthopedic surgery consult Postop day #8 status post left BKA-okay for discharge from an orthopedic standpoint. Orthopedics will be available as needed. Pain control (Percocet DC secondary to rash): Lortab 1 tab every 4 hours when necessary pain 1-5, 2 tabs pain 6-10 Antibiotic history: Per infectious disease Augmentin 875 mg every 12 hours (started 01/02-01/06) Clindamycin IV discontinued (12/22-12/28) Zosyn also discontinued (12/22-12/26) Antibiotics per ID: Unasyn IV every 6 hours discontinued ( 12/26-01/01) History: -12/23: Status post left foot ankle incision drainage debridement partial resection of the 5th metatarsal head. -Intraoperative findings of metatarsal resection show severe necrosis down to periosteum of the midfoot, abscess severe. Wound culture: Staph aureus, enterococcus, mixed anaerobes Blood Cultures positive as listed under sepsis Most recent blood cultures from 12/25 no growth after 5 days Bone pathology left fifth metatarsal showing acute osteomyelitis (2) Skin rash Status: Acute Plan: Improving May be related to antibiotic Augmentin (started 01/02-01/06) which is dc'd as of today. Could also be related to pain medications (PO percocet was started 01/04-). -Change to Lortab, d/c Percocet -Topical hydrocortisone cream PRN -Continue Benadryl PRN (3) Hypertension Status: Chronic Plan: Patient's blood pressures have been persistently elevated. Holding Lisinopril 5 mg daily which was started in November. Patient's urine microalbumin high at 173. He also likely has chronic kidney disease with persistently elevated creatinine Amlodipine 10 mg daily Follow with nephrology as an outpatient. (4) Hyperlipidemia Status: Acute Plan: -Labs from 12/11 show elevated LDL of 120 -10 year ASCVD risk score is 12% - recommendation is for a high-intensity statin -Start atorvastatin now (5) Anemia Status: Chronic Plan: Hematology consulted Stable Likely secondary to chronic infection and recent BKA. Peripheral smear shows normochromic normocytic anemia Status post 2 units packed red blood cells on 12/22. Status post 2 units packed red blood cells on 12/25. Status post 2 units packed red blood cells on 12/31 Status post 2 units packed red blood cells on 01/04. Continue to monitor; transfuse when less than 7 Labs: Vitamin B12, B1, folate within normal limits. Iron, TIBC indicative of chronic inflammation. Hemoccult: Negative (6) TAYLOR (acute kidney injury) Status: Acute Plan: Nephrology previously consulted, now available as needed. Follow with nephrology as outpatient Good urine output Repeat CMP in 1 week (7) Stage 1 decubitus ulcer in diabetic patient Status: Acute Plan: Notified 01/03 at 11 AM of stage I decubitus at the patient's sacrum. Wound care nursing consulted Offload areas of pressure per protocol Continue to work with physical therapy Soft mattress order Further orders per wound care (8) Diabetes Status: Chronic Plan: -Hemoglobin A1c on 12/11 was 6.9 Sliding scale insulin while in hospital. Patient has had diarrhea on metformin, likely will need to be discontinued as an outpatient and put on glipizide (9) Social issues Status: Acute Plan: Patient lives with his 90-year-old aunt who has dementia and is unable to take care of the patient on discharge. Case management consulted to assist with disposition. Likely to [facility] on 01/10 (10) Anxiety and depression Status: Acute Plan: -Continue home Abilify 5 mg by mouth daily and Celexa 20 mg by mouth daily -Psychiatry consulted: Diagnosed with dysthymia; he has appropriate follow-up with psychiatry services in the community (11) FEN/DVT PPX/GI PPX Status: Acute Plan: Fluids: None at this time Electrolytes: Will monitor and replace as needed Nutrition: Diabetic diet DVT Prophylaxis: Fondaparinux per orthopedic surgery. Okay from hematology to be on heparin prophylactically because of false positive HIT. GI Prophylaxis: Famotidine 10 mg IV every 12 hours (12) Sepsis Status: Resolved Plan: Infectious disease consult Vitals currently stable. Sources of sepsis is left foot wound. See antibiotic management under diabetic foot wound Blood cultures 12/21: Pasteurella, Staphylococcus aureus Blood cultures 12/25: No growth after 5 days (13) HIT (heparin-induced thrombocytopenia) Status: Resolved Plan: Hematology consult Serotonin release assay negative. HIT positive is likely a false positive result Continue to monitor platelets Patient has been started on fondaparinux per hematology Medical history: Heparin discontinued Argatroban discontinued per hematology (Freddie Barahona MD R2) Problem Qualifiers (1) Diabetic foot ulcer: Qualified Code: E11.621 - Diabetic ulcer of toe of left foot associated with type 2 diabetes mellitus, unspecified ulcer stage (2) Hypertension: Qualified Code: I10 - Essential hypertension (3) Anemia: Qualified Code: D64.9 - Anemia, unspecified type (4) Sepsis: Qualified Code: A41.9 - Sepsis, due to unspecified organism Freddie Barahona MD R2 Jan 10, 2017 09:09 Andie Guerrero MD Jan 10, 2017 16:52
--- NOTE | 2017-01-10 09:33 | HHI.DS ---
Discharge Summary Admission Date December 22, 2016 at 00:52 Discharge Date: Jan 10, 2017 Admitting Diagnosis Sepsis, diabetic foot, kidney injury, anemia, (1) Diabetic foot ulcer Diagnosis: Principal Plan: Podiatry consulted Infectious disease consult Physical therapy consult Orthopedic surgery consult Postop day #8 status post left BKA-okay for discharge from an orthopedic standpoint. Orthopedics will be available as needed. Pain control (Percocet DC secondary to rash): Lortab 1 tab every 4 hours when necessary pain 1-5, 2 tabs pain 6-10 Antibiotic history: Per infectious disease Augmentin 875 mg every 12 hours (started 01/02-01/06) Clindamycin IV discontinued (12/22-12/28) Zosyn also discontinued (12/22-12/26) Antibiotics per ID: Unasyn IV every 6 hours discontinued ( 12/26-01/01) History: -12/23: Status post left foot ankle incision drainage debridement partial resection of the 5th metatarsal head. -Intraoperative findings of metatarsal resection show severe necrosis down to periosteum of the midfoot, abscess severe. Wound culture: Staph aureus, enterococcus, mixed anaerobes Blood Cultures positive as listed under sepsis Most recent blood cultures from 12/25 no growth after 5 days Bone pathology left fifth metatarsal showing acute osteomyelitis (2) Skin rash Diagnosis: Secondary Plan: Improving May be related to antibiotic Augmentin (started 01/02-01/06) which is dc'd as of today. Could also be related to pain medications (PO percocet was started 01/04-). -Change to Lortab, d/c Percocet -Topical hydrocortisone cream PRN -Continue Benadryl PRN (3) Hypertension Diagnosis: Secondary Plan: Patient's blood pressures have been persistently elevated. Holding Lisinopril 5 mg daily which was started in November. Patient's urine microalbumin high at 173. He also likely has chronic kidney disease with persistently elevated creatinine Amlodipine 10 mg daily Follow with nephrology as an outpatient. (4) Hyperlipidemia Diagnosis: Secondary Plan: -Labs from 12/11 show elevated LDL of 120 -10 year ASCVD risk score is 12% - recommendation is for a high-intensity statin -Start atorvastatin now (5) Anemia Diagnosis: Secondary Plan: Hematology consulted Stable Likely secondary to chronic infection and recent BKA. Peripheral smear shows normochromic normocytic anemia Status post 2 units packed red blood cells on 12/22. Status post 2 units packed red blood cells on 12/25. Status post 2 units packed red blood cells on 12/31 Status post 2 units packed red blood cells on 01/04. Continue to monitor; transfuse when less than 7 Labs: Vitamin B12, B1, folate within normal limits. Iron, TIBC indicative of chronic inflammation. Hemoccult: Negative (6) TAYLOR (acute kidney injury) Diagnosis: Secondary Plan: Nephrology previously consulted, now available as needed. Follow with nephrology as outpatient Good urine output Repeat CMP in 1 week (7) Stage 1 decubitus ulcer in diabetic patient Diagnosis: Secondary Plan: Notified 01/03 at 11 AM of stage I decubitus at the patient's sacrum. Wound care nursing consulted Offload areas of pressure per protocol Continue to work with physical therapy Soft mattress order Further orders per wound care (8) Diabetes Diagnosis: Secondary Plan: -Hemoglobin A1c on 12/11 was 6.9 Sliding scale insulin while in hospital. Patient has had diarrhea on metformin, likely will need to be discontinued as an outpatient and put on glipizide (9) Social issues Diagnosis: Secondary Plan: Patient lives with his 90-year-old aunt who has dementia and is unable to take care of the patient on discharge. Case management consulted to assist with disposition. Likely to [facility] on 01/10 (10) Anxiety and depression Diagnosis: Secondary Plan: -Continue home Abilify 5 mg by mouth daily and Celexa 20 mg by mouth daily -Psychiatry consulted: Diagnosed with dysthymia; he has appropriate follow-up with psychiatry services in the community (11) FEN/DVT PPX/GI PPX Diagnosis: Secondary Plan: Fluids: None at this time Electrolytes: Will monitor and replace as needed Nutrition: Diabetic diet DVT Prophylaxis: Fondaparinux per orthopedic surgery. Okay from hematology to be on heparin prophylactically because of false positive HIT. GI Prophylaxis: Famotidine 10 mg IV every 12 hours (12) Sepsis Diagnosis: Principal Plan: Infectious disease consult Vitals currently stable. Sources of sepsis is left foot wound. See antibiotic management under diabetic foot wound Blood cultures 12/21: Pasteurella, Staphylococcus aureus Blood cultures 12/25: No growth after 5 days (13) HIT (heparin-induced thrombocytopenia) Diagnosis: Secondary Plan: Hematology consult Serotonin release assay negative. HIT positive is likely a false positive result Continue to monitor platelets Patient has been started on fondaparinux per hematology Medical history: Heparin discontinued Argatroban discontinued per hematology Consultants Podiatry Wound care Orthopedic surgery Infectious disease Nephrology Critical care Procedures Left foot ankle incision and drainage with partial resection of the fifth metatarsal head Left BKA Brief History Patient is a 56-year-old male with a past medical history of type 2 diabetes, chronic left foot ulcer of at least 3 years, and depression that presented to the [facility] ED with a chief complaint of nausea, vomiting, diarrhea , and fatigue for 5 days duration. Patient states that on Monday 12/18, he started having nonbloody, non-mucus diarrhea at least 3-4 times a day. He felt so weak that she had difficulty walking and sitting up/getting up from bed or a chair. He did not feel feverish but had chills constantly. Patient denies dysuria but states that his urine looked orange in color. He also had decreased by mouth intake due to nausea, vomiting, and dry heaving. Patient was recently restarted on metformin for diabetes and Abilify and Celexa for depression at his PCP visits with Dr. Sam Barahona, PGY 2 on 12/08. He was also scheduled to see wood processing worker Dr. Back at the wound care at the wound care clinic next week for management of his foot ulcer. Patient states that he lives at home with his aunt. Dr. Gavin spoke with patient's relative, Dr. Botello ([phone]), who mentioned to him that the patient lives with his mom who is 90 years old and demented. Patient has decreased ability to take care of himself and may need placement in a different living situation. The foot ulcer is chronic and patient has dealt with it for at least 3 years. Previous debridements were performed by Dr. Jonas cárdenas who is an orthopedic surgeon in on Saturday. Patient states that he was not able to continue management of the ulcer and diabetes in the last 2 years due to personal issues. CBC/BMP: 01/10/17 0515 01/10/17 0515 Significant Findings Laboratory Tests Test 01/08/17 01/09/17 01/10/17 04:25 05:20 05:15 Red Blood Count 3.07 MIL/MM3 2.96 MIL/MM3 3.26 MIL/MM3 (4.50-5.90) (4.50-5.90) (4.50-5.90) Hemoglobin 9.2 GM/DL 8.9 GM/DL 9.6 GM/DL (13.0-17.0) (13.0-17.0) (13.0-17.0) Hematocrit 27.7 % 26.9 % 29.5 % (39.0-51.0) (39.0-51.0) (39.0-51.0) Platelet Count 118 TH/MM3 113 TH/MM3 121 TH/MM3 (150-450) (150-450) (150-450) Chloride Level 109 MEQ/L (98-107) Estimat Glomerular Filtration 57 ML/MIN (>89) 54 ML/MIN (>89) 49 ML/MIN (>89) Rate Calcium Level 8.0 MG/DL 8.4 MG/DL (8.5-10.1) (8.5-10.1) Red Cell Distribution Width 17.3 % (11.6-17.2) Monocytes (%) (Auto) 18.6 % 16.3 % (0.0-8.0) (0.0-8.0) Monocytes # (Auto) 1.0 TH/MM3 (0-0.9) Monocytes % 13 % (0-8) 20 % (0-8) Myelocytes 1 % (0-0) 2 % (0-0) Platelet Estimate LOW (NORMAL) LOW (NORMAL) Creatinine 1.35 MG/DL 1.47 MG/DL (0.60-1.30) (0.60-1.30) Albumin 1.8 GM/DL 2.0 GM/DL (3.4-5.0) (3.4-5.0) Blood Urea Nitrogen 19 MG/DL (7-18) Imaging Last Impressions Renal Ultrasound 12/25/16 0000 Signed Impressions: Service Date/Time: Sunday, December 25, 2016 13:28 - CONCLUSION: 1. Unremarkable ultrasound examination of the kidneys. Hang Lin MD Foot X-Ray 12/23/16 0000 Signed Impressions: Service Date/Time: Friday, December 23, 2016 09:40 - CONCLUSION: Soft tissue swelling and post surgical changes. Laureano Grider MD Foot MRI 12/22/16 0000 Signed Impressions: Service Date/Time: Thursday, December 22, 2016 16:49 - CONCLUSION: 1. Diffuse marrow edema involving the remaining portion of the left 5th metatarsal with extensive overlying soft-tissue swelling. The findings raise the possibility of osteomyelitis of the 5th metatarsal and overlying cellulitis. Clinical correlation is recommended. 2. Questionable nondisplaced fractures involving the bases of the left 3rd and 4th metatarsals with some associated marrow edema. Shade Kee MD Chest X-Ray 12/21/160 Signed Impressions: Service Date/Time: Wednesday, December 21, 2016 22:20 - CONCLUSION: No acute disease. Paramjit Bae MD PE at Discharge GENERAL: This is a well-nourished, well-developed patient, with depressed affect. SKIN: Status post left BKA. Currently wrapped per wound care. Improved macular papular rash on right arm and chest HEAD: Atraumatic. Normocephalic. CARDIOVASCULAR: RRR RESPIRATORY: Clear to auscultation. Breath sounds equal bilaterally. No wheezes , rales, or rhonchi. GASTROINTESTINAL: Abdomen soft, non-tender, nondistended. No hepato-splenomegaly , or palpable masses. No guarding. MUSCULOSKELETAL: Status post left BKA. NEUROLOGICAL: Awake and alert. Cranial nerves grossly intact. PSYCH: Depressed mood and affect Hospital Course The patient was initially transferred septic to the ICU under the care of the purification supervisor. Podiatry, infectious disease were initially consulted. The patient was started on broad-spectrum antibiotics, Zosyn, Clinda. Patient underwent partial to primary of the fifth metatarsal in the hope that we can salvage his lower extremity. However, the pathology came back diffuse osteomyelitis. The consensus among all the specialists, including infectious disease, podiatry, wound care, was that the patient would need to undergo a left BKA in order to have the best outcome. Initially the patient declined this operation, however he then consented to the procedure. Orthopedic surgery , Dr. Moctezuma, performed the left BKA without any complications. Infectious disease recommended 5 days by mouth antibiotics, Augmentin, after the procedure to complete his course. Case management was helping with disposition. The patient was accepted to [facility] on 01/10, and was discharged there for continued care. Other medical problems that were discovered during his hospital course included acute on chronic kidney disease. Nephrology was consulted initially, however signed off after improved renal function. He will need outpatient nephrology. Hematology was consulted as the patient was initially H IT positive. However this was determined to be a false positive. Hematology was also helping with acute chronic anemia. This was felt to be due to chronic inflammation from his chronic left foot wound and recent procedures. Ultimately, he obtained 6 units of packed red blood cells. On discharge to [facility], his hemoglobin has remained stable. I am ordering a repeat CBC and CMP in 1 week after discharge to be followed up. We started him on Lipitor. We stopped his metformin as it caused him profuse diarrhea. He will be on glipizide. Lisinopril was discontinued due to his kidney function. Amlodipine was started for his high blood pressure. The patient did develop a stage I decubitus ulcer which was first noticed on . Wound care has been working to offload the areas of pressure. This area remained stable throughout the rest of his hospital course. The patient has severe dysthymia which hinders his motivation and ability to work difficult problems. He requires motivation. However, he has been working with physical therapy and improving tremendously. He will need psychology/ psychiatry as an outpatient. The patient has multiple social issues including living with a demented 90-year- old aunt. I have discussed the case thoroughly with the patient's cousin, Armand (who is a loading unit operator crimping in the area), who can be reached at [phone]. Armand is helping with discharge needs including where the patient will stay at after [facility] is finished with his rehabilitation. Pt Condition on Discharge: Fair Discharge Disposition: Rehab Inpatient Discharge Instructions DIET: Follow Instructions for: Diabetic Diet Activities you can perform: Weight Bearing as Eloisa, See Additionl Instruction Activities to Avoid: Weight Bearing Follow up Referrals: Orthopedics - 10 Days @ [facility] with Tang Moctezuma MD PCP Follow-up - 1 Week New Orders: CBC WITH DIFF - 1 Week COMP MET PROF (CMP) - 1 Week New Medications: Glipizide (Glipizide) 5 Mg Tab 5 MG PO DAILY Take 30 minutes before a meal Blood Sugar Management #30 Ref 0 TAB Amlodipine (Norvasc) 10 Mg Tab 10 MG PO DAILY #30 TAB Atorvastatin (Atorvastatin) 20 Mg Tab 20 MG PO HS #30 TAB Citalopram (Celexa) 20 Mg Tab 20 MG PO DAILY #30 TAB Docusate Sodium (Dok) 100 Mg Cap 100 MG PO BID #60 CAP Hydrocodone-Acetaminophen (Hydrocodone-Acetaminophen) 5-325 mg Tab 1 TAB PO Q4H PRN pain 6-10 #30 TAB Hydrocortisone Topical (Hydrocortisone Topical) 2.5% Cream 1 APPLIC TOPICAL Q6H PRN ITCHING #1 TUBE ([Fondaparinux Inj]) 2.5 MG/0.5 ML INJ 2.5 MG SQ Q24H #10 SYRINGE Continued Medications: Aripiprazole (Abilify) 5 Mg Tab 5 MG PO DAILY #30 Ref 0 TAB Onetouch Lancets (Onetouch Lancets) 1 Mis Mis 1 BOX .ROUTE DIRECTED Blood Sugar Management #1 Ref 6 BOX Onetouch Ultra 2 Glucose System (Onetouch Ultra 2 Glucose System) 1 Kit Kit 1 KIT .ROUTE DIRECTED Blood Sugar Management #1 Ref 0 KIT Onetouch Ultra Test Strips (Onetouch Ultra Test Strips) 1 Gloria Gloria 1 STRIP .ROUTE DIRECTED check your sugar every other day. get a measurement before meals and after meals on different days. Blood Sugar Management #100 Ref 6 BOX Discontinued Medications: Citalopram (Celexa) 10 Mg Tab 10 MG PO DAILY Control Depression #30 Ref 0 TAB Lisinopril (Lisinopril) 5 Mg Tab 5 MG PO DAILY Blood Pressure Management #30 Ref 0 TAB Metformin ER (Metformin ER) 1,000 Mg Stephanie 1000 MG PO DAILY With evening meal Blood Sugar Management #30 Ref 0 TAB Freddie Barahona MD R2 Jan 10, 2017 09:33
[2017-01-10 12:00] VITALS: BP 145/84; PULSE 83; RESP 20; TEMP 97; O2SAT 94
[2017-01-10 16:00] VITALS: BP 158/82; PULSE 102; RESP 18; TEMP 96.7; O2SAT 95
[2017-01-10 20:00] VITALS: BP 145/86; PULSE 82; RESP 18; TEMP 97.2; O2SAT 95
[2017-01-10] MEDS: MUPIROCIN 2% CREAM 15 GM TOPICAL SCH (21:00)
[2017-01-10] MEDS: ATORVASTATIN 20 MG TAB PO SCH (22:33)
[2017-01-10] MEDS: FONDAPARINUX SODIUM 2.5 MG/0.5 ML SYRINGE SQ SCH (22:34)
[2017-01-11] VITALS: BP 147/79; PULSE 74; RESP 20; TEMP 97.8; O2SAT 95
[2017-01-11] MEDS: ACETAMINOPHEN/HYDROcodone 325 MG/5 MG TAB PO PRN ×2 (00:35→13:11)
[2017-01-11] MEDS: CHLORHEXIDINE GLUCONATE 2 % 1 PACK (2 CLOTHS) TOP SCH (01:35)
[2017-01-11] MEDS: INSULIN ASPART SUPPLEMENTAL SCALE SQ SCH ×4 (07:00→21:00)
[2017-01-11] MEDS: ARIPiprazole 5 MG TAB PO SCH (07:45)
[2017-01-11] MEDS: DOCUSATE SODIUM 50 MG/SENNA 8.6 MG TAB PO SCH ×2 (07:45→21:00)
[2017-01-11] MEDS: DOCUSATE SODIUM 100 MG CAP PO SCH ×2 (07:45→21:00)
[2017-01-11] MEDS: MULTIVITAMINS/MINERALS THERAPEUTIC TAB PO SCH ×2 (07:45→21:13)
[2017-01-11] MEDS: CITALOPRAM HYDROBROMIDE 20 MG TAB PO SCH (07:45)
[2017-01-11] MEDS: SODIUM CHLORIDE 0.9% FLUSH 10 ML FLUSH IV FLUSH SCH ×2 (07:46→21:13)
[2017-01-11] MEDS: LACTOBACILLUS ACIDOPHILUS 1 GM PACKET PO SCH ×3 (07:50→16:15)
[2017-01-11] MEDS: MUPIROCIN 2% CREAM 15 GM TOPICAL SCH ×2 (07:52→21:00)
[2017-01-11 08:00] VITALS: BP 165/84; PULSE 80; RESP 16; TEMP 95.4; O2SAT 94
--- NOTE | 2017-01-11 11:32 | HHI.FPPN ---
Subjective Remarks Patient seen and examined this morning. States he worked with Physical therapy for a short time this morning. States the PT today was difficult and he that it was a short session because he was unable to stand up fully and had to get back in the bed. He states his pain is not bad and that it "tends to happen at night". [place] "aches and pains" after PT yesterday afternoon, but takes the pain medication prior to PT and overall does okay normally. Denies severe pain. Denies muscle spasms. Denies chest pain, trouble breathing, nausea or vomiting. Still has a slight rash on body over chest and right shoulder that itches on and off, overall improved (Chel Self MD) Objective Vitals Vital Signs Date Time Temp Pulse Resp B/P Pulse Ox O2 Delivery O2 Flow Rate FiO2 01/11/17 08:00 95.4 80 16 165/84 94 01/11/17 00:00 97.8 74 20 147/79 95 01/10/17 20:00 97.2 82 18 145/86 95 01/10/17 16:00 96.7 102 18 158/82 95 01/10/17 12:00 97.0 83 20 145/84 94 I/O 01/10/17 01/10/17 01/10/17 01/11/17 01/11/17 01/11/17 07:00 15:00 23:00 07:00 15:00 23:00 Intake Total 120 ml 240 ml 240 ml 360 ml Output Total 1500 ml 1800 ml 1650 ml 800 ml Balance -1380 ml -1560 ml -1410 ml -440 ml Intake Oral 120 ml 240 ml 240 ml 360 ml IV Total 0 ml 0 ml Output Urine Total 1500 ml 1800 ml 1650 ml 800 ml # Bowel Movements 0 0 0 (Chel Self MD) Result Diagram: 01/10/17 0515 01/10/17 0515 Imaging Last Impressions Renal Ultrasound 12/25/16 0000 Signed Impressions: Service Date/Time: Sunday, December 25, 2016 13:28 - CONCLUSION: 1. Unremarkable ultrasound examination of the kidneys. Hang Lin MD Foot X-Ray 12/23/16 0000 Signed Impressions: Service Date/Time: Friday, December 23, 2016 09:40 - CONCLUSION: Soft tissue swelling and post surgical changes. Laureano Grider MD Foot MRI 12/22/16 0000 Signed Impressions: Service Date/Time: Thursday, December 22, 2016 16:49 - CONCLUSION: 1. Diffuse marrow edema involving the remaining portion of the left 5th metatarsal with extensive overlying soft-tissue swelling. The findings raise the possibility of osteomyelitis of the 5th metatarsal and overlying cellulitis. Clinical correlation is recommended. 2. Questionable nondisplaced fractures involving the bases of the left 3rd and 4th metatarsals with some associated marrow edema. Shade Kee MD Chest X-Ray 12/21/160 Signed Impressions: Service Date/Time: Wednesday, December 21, 2016 22:20 - CONCLUSION: No acute disease. Paramjit Bae MD Objective Remarks GENERAL: This is a well-nourished, well-developed patient, with depressed affect. SKIN: Status post left BKA. Currently wrapped per wound care. Macular papular rash on right arm and chest, overall improved compared to initial assessment but still present. HEAD: Atraumatic. Normocephalic. CARDIOVASCULAR: RRR RESPIRATORY: Clear to auscultation. Breath sounds equal bilaterally. No wheezes , rales, or rhonchi. GASTROINTESTINAL: Abdomen soft, non-tender, nondistended. No hepato-splenomegaly , or palpable masses. No guarding. MUSCULOSKELETAL: Status post left BKA. NEUROLOGICAL: Awake and alert. Cranial nerves grossly intact. PSYCH: Depressed mood and affect Procedures Left foot ankle incision and drainage with partial resection of the fifth metatarsal head Left BKA (Chel Self MD) A/P Assessment and Plan 56-year-old male with a past medical history of complicated type 2 diabetes presented meeting sepsis criteria with diabetic left foot wound. 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 Requested physical therapy to work with the patient twice a day Discharge Planning Patient cleared from orthopedic standpoint. Follow-up with orthopedic surgery one week from 01/07 (on 01/14) for suture removal and wound check. Case management consulted for discharge needs. Discharge to SNF, possibly [facility]. Patient was denied by [facility] yesterday. Will need skilled nursing rehabilitation Physical therapy consulted (Chel Self MD) Attending Attestation Patient seen, examined, and discussed with resident team. I agree with assessment and management as documented and discussed with me. Pt without complaints. Encouraged patient to work with PT. Await acceptance to facility. (Andie Guerrero MD) Problem List: (1) Diabetic foot ulcer Status: Chronic Plan: Podiatry consulted Infectious disease consult Physical therapy consult Orthopedic surgery consult Status post left BKA on 12/23/16-okay for discharge from an orthopedic standpoint. Orthopedics will be available as needed. Pain control (Percocet DC secondary to rash): Lortab 1 tab every 4 hours when necessary pain 1-5, 2 tabs pain 6-10 Antibiotic history: Per infectious disease Augmentin 875 mg every 12 hours (started 01/02-01/06) Clindamycin IV discontinued (12/22-12/28) Zosyn also discontinued (12/22-12/26) Antibiotics per ID: Unasyn IV every 6 hours discontinued ( 12/26-01/01) History: -12/23: Status post left foot ankle incision drainage debridement partial resection of the 5th metatarsal head. -Intraoperative findings of metatarsal resection show severe necrosis down to periosteum of the midfoot, abscess severe. Wound culture: Staph aureus, enterococcus, mixed anaerobes Blood Cultures positive as listed under sepsis Most recent blood cultures from 12/25 no growth after 5 days Bone pathology left fifth metatarsal showing acute osteomyelitis (2) Skin rash Status: Acute Plan: Improving overall Likely was 2/2 antibiotic Augmentin (started 01/02-01/06) which is dc'd. Could also be related to pain medications (PO percocet was started 01/04-01/06). * Changed to Lortab, d/c Percocet * Topical hydrocortisone cream, change from PRN to LIBORIO as patient not asking for this and received only once on 01/07 * Benadryl PRN (3) Hypertension Status: Chronic Plan: Patient's blood pressures have been persistently elevated. Holding Lisinopril 5 mg daily which was started in November. Patient's urine microalbumin high at 173. He also likely has chronic kidney disease with persistently elevated creatinine Amlodipine 10 mg daily Follow with nephrology as an outpatient. (4) Hyperlipidemia Status: Acute Plan: Labs from 12/11 show elevated LDL of 120. 10 year ASCVD risk score is 12% - recommendation is for a high-intensity statin * Started atorvastatin (5) Anemia Status: Chronic Plan: Hematology consulted Stable Likely secondary to chronic infection and recent BKA. Peripheral smear shows normochromic normocytic anemia Status post 2 units packed red blood cells on 12/22. Status post 2 units packed red blood cells on 12/25. Status post 2 units packed red blood cells on 12/31 Status post 2 units packed red blood cells on 01/04. Continue to monitor; transfuse when less than 7 Labs: Vitamin B12, B1, folate within normal limits. Iron, TIBC indicative of chronic inflammation. Hemoccult: Negative (6) TAYLOR (acute kidney injury) Status: Acute Plan: Nephrology previously consulted, now available as needed. Follow with nephrology as outpatient Good urine output Repeat CMP in 1 week (7) Stage 1 decubitus ulcer in diabetic patient Status: Acute Plan: Notified 01/03 at 11 AM of stage I decubitus at the patient's sacrum. Wound care nursing consulted Offload areas of pressure per protocol Continue to work with physical therapy Soft mattress order Further orders per wound care (8) Diabetes Status: Chronic Plan: -Hemoglobin A1c on 12/11 was 6.9 Sliding scale insulin while in hospital. Patient has had diarrhea on metformin, likely will need to be discontinued as an outpatient and put on glipizide (9) Social issues Status: Acute Plan: Patient lives with his 90-year-old aunt who has dementia and is unable to take care of the patient on discharge. Case management consulted to assist with disposition. Needs [facility] on discharge (10) Anxiety and depression Status: Acute Plan: -Continue home Abilify 5 mg by mouth daily and Celexa 20 mg by mouth daily -Psychiatry consulted: Diagnosed with dysthymia; he has appropriate follow-up with psychiatry services in the community (11) Sepsis Status: Resolved Plan: Infectious disease consulted Vitals currently stable. Sources of sepsis is left foot wound. See antibiotic management under diabetic foot wound Blood cultures 12/21: Pasteurella, Staphylococcus aureus Blood cultures 12/25: No growth after 5 days (12) HIT (heparin-induced thrombocytopenia) Status: Resolved Plan: Hematology consult Serotonin release assay negative. HIT positive is likely a false positive result Continue to monitor platelets Patient has been started on fondaparinux per hematology Medical history: Heparin discontinued Argatroban discontinued per hematology (13) FEN/DVT PPX/GI PPX Status: Acute Plan: Fluids: None at this time Electrolytes: Will monitor and replace as needed Nutrition: Diabetic diet DVT Prophylaxis: Fondaparinux per orthopedic surgery. Okay from hematology to be on heparin prophylactically because of false positive HIT. GI Prophylaxis: Famotidine 10 mg IV every 12 hours (Chel Self MD) Problem Qualifiers (1) Diabetic foot ulcer: Qualified Code: E11.621 - Diabetic ulcer of toe of left foot associated with type 2 diabetes mellitus, unspecified ulcer stage (2) Hypertension: Qualified Code: I10 - Essential hypertension (3) Hyperlipidemia: Qualified Code: E78.5 - Hyperlipidemia, unspecified hyperlipidemia type (4) Anemia: Qualified Code: D64.9 - Anemia, unspecified type (5) Diabetes: (6) Sepsis: Qualified Code: A41.9 - Sepsis, due to unspecified organism Chel Self MD Jan 11, 2017 11:32 Andie Guerrero MD Jan 11, 2017 17:29
[2017-01-11 12:00] VITALS: BP 152/81; PULSE 82; RESP 12; TEMP 96.4; O2SAT 96
[2017-01-11 16:00] VITALS: BP 154/75; PULSE 84; RESP 20; TEMP 96.6; O2SAT 95
[2017-01-11 20:00] VITALS: BP 164/79; PULSE 76; RESP 18; TEMP 96.8; O2SAT 97
[2017-01-11] MEDS: HYDROCORTISONE 2.5% CREAM 30 GM TOPICAL SCH (21:13)
[2017-01-11] MEDS: ATORVASTATIN 20 MG TAB PO SCH (21:13)
[2017-01-11] MEDS: FONDAPARINUX SODIUM 2.5 MG/0.5 ML SYRINGE SQ SCH (21:14)
[2017-01-12] MEDS: CHLORHEXIDINE GLUCONATE 2 % 1 PACK (2 CLOTHS) TOP SCH (01:56)
[2017-01-12] MEDS: INSULIN ASPART SUPPLEMENTAL SCALE SQ SCH ×4 (06:00→20:50)
[2017-01-12 08:00] VITALS: BP 137/71; PULSE 80; RESP 20; TEMP 97.8; O2SAT 95
--- NOTE | 2017-01-12 09:07 | HHI.FPPN ---
Subjective Remarks Patient is doing well this morning. Since his rash has improved. Denies fever , chills, nausea, vomiting. He is doing the best he can with physical therapy. He understands we are looking into nursing home facilities for him and that [facility] declined to accept him. Objective Vitals Vital Signs Date Time Temp Pulse Resp B/P Pulse Ox O2 Delivery O2 Flow Rate FiO2 01/11/17 20:00 96.8 76 18 164/79 97 01/11/17 16:00 96.6 84 20 154/75 95 01/11/17 12:00 96.4 82 12 152/81 96 I/O 01/11/17 01/11/17 01/11/17 01/12/17 01/12/17 01/12/17 07:00 15:00 23:00 07:00 15:00 23:00 Intake Total 360 ml 480 ml 0 ml 240 ml Output Total 800 ml 2150 ml 1550 ml Balance -440 ml -1670 ml 0 ml -1310 ml Intake Oral 360 ml 480 ml 240 ml IV Total 0 ml 0 ml 0 ml Output Urine Total 800 ml 2150 ml 1550 ml # Bowel Movements 0 0 0 Result Diagram: 01/10/17 0515 01/10/17 0515 Objective Remarks GENERAL: This is a well-nourished, well-developed patient, with depressed affect. SKIN: Status post left BKA. Currently wrapped per wound care. Macular papular rash on right arm and chest, overall improved compared to initial assessment but still present. HEAD: Atraumatic. Normocephalic. CARDIOVASCULAR: RRR RESPIRATORY: Clear to auscultation. Breath sounds equal bilaterally. No wheezes , rales, or rhonchi. GASTROINTESTINAL: Abdomen soft, non-tender, nondistended. No hepato-splenomegaly , or palpable masses. No guarding. MUSCULOSKELETAL: Status post left BKA. NEUROLOGICAL: Awake and alert. Cranial nerves grossly intact. PSYCH: Depressed mood and affect Procedures Left foot ankle incision and drainage with partial resection of the fifth metatarsal head Left BKA A/P Assessment and Plan 56-year-old male with a past medical history of complicated type 2 diabetes presented meeting sepsis criteria with diabetic left foot wound. 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 Requested physical therapy to work with the patient twice a day Discharge Planning Patient cleared from orthopedic standpoint. Follow-up with orthopedic surgery one week from 01/07 (on 01/14) for suture removal and wound check. Case management consulted for discharge needs. Discharge to SNF, possibly [facility]. Patient was denied by [facility]. Will need manager long term care rehabilitation. [id number] has been signed for this SNF likelihood. Physical therapy consulted Problem List: (1) Diabetic foot ulcer Status: Chronic Plan: Podiatry consulted Infectious disease consult Physical therapy consult Orthopedic surgery consult Status post left BKA on 12/23/16-okay for discharge from an orthopedic standpoint. Orthopedics will be available as needed. Pain control (Percocet DC secondary to rash): Lortab 1 tab every 4 hours when necessary pain 1-5, 2 tabs pain 6-10 Antibiotic history: Per infectious disease Augmentin 875 mg every 12 hours (started 01/02-01/06) Clindamycin IV discontinued (12/22-12/28) Zosyn also discontinued (12/22-12/26) Antibiotics per ID: Unasyn IV every 6 hours discontinued ( 12/26-01/01) History: -12/23: Status post left foot ankle incision drainage debridement partial resection of the 5th metatarsal head. -Intraoperative findings of metatarsal resection show severe necrosis down to periosteum of the midfoot, abscess severe. Wound culture: Staph aureus, enterococcus, mixed anaerobes Blood Cultures positive as listed under sepsis Most recent blood cultures from 12/25 no growth after 5 days Bone pathology left fifth metatarsal showing acute osteomyelitis (2) Skin rash Status: Acute Plan: Improving overall Likely was 2/2 antibiotic Augmentin (started 01/02-01/06) which is dc'd. Could also be related to pain medications (PO percocet was started 01/04-01/06). * Changed to Lortab, d/c Percocet * Topical hydrocortisone cream, change from PRN to LIBORIO as patient not asking for this and received only once on 01/07 * Benadryl PRN (3) Hypertension Status: Chronic Plan: Patient's blood pressures have been persistently elevated. Holding Lisinopril 5 mg daily which was started in November. Patient's urine microalbumin high at 173. He also likely has chronic kidney disease with persistently elevated creatinine Amlodipine 10 mg daily Follow with nephrology as an outpatient. (4) Hyperlipidemia Status: Acute Plan: Labs from 12/11 show elevated LDL of 120. 10 year ASCVD risk score is 12% - recommendation is for a high-intensity statin * Started atorvastatin (5) Anemia Status: Chronic Plan: Hematology consulted Stable Likely secondary to chronic infection and recent BKA. Peripheral smear shows normochromic normocytic anemia Status post 2 units packed red blood cells on 12/22. Status post 2 units packed red blood cells on 12/25. Status post 2 units packed red blood cells on 12/31 Status post 2 units packed red blood cells on 01/04. Continue to monitor; transfuse when less than 7 Labs: Vitamin B12, B1, folate within normal limits. Iron, TIBC indicative of chronic inflammation. Hemoccult: Negative (6) TAYLOR (acute kidney injury) Status: Resolved Plan: Nephrology previously consulted, now available as needed. Follow with nephrology as outpatient Good urine output Repeat CMP in 1 week (7) Stage 1 decubitus ulcer in diabetic patient Status: Acute Plan: Notified 01/03 at 11 AM of stage I decubitus at the patient's sacrum. Wound care nursing consulted Offload areas of pressure per protocol Continue to work with physical therapy Soft mattress order Further orders per wound care (8) Diabetes Status: Chronic Plan: -Hemoglobin A1c on 12/11 was 6.9 Sliding scale insulin while in hospital. Patient has had diarrhea on metformin, likely will need to be discontinued as an outpatient and put on glipizide (9) Social issues Status: Acute Plan: Patient lives with his 90-year-old aunt who has dementia and is unable to take care of the patient on discharge. Case management consulted to assist with disposition. Needs manager long term care rehabilitation on discharge (10) Anxiety and depression Status: Acute Plan: -Continue home Abilify 5 mg by mouth daily and Celexa 20 mg by mouth daily -Psychiatry consulted: Diagnosed with dysthymia; he has appropriate follow-up with psychiatry services in the community (11) Sepsis Status: Resolved Plan: Infectious disease consulted Vitals currently stable. Sources of sepsis is left foot wound. See antibiotic management under diabetic foot wound Blood cultures 12/21: Pasteurella, Staphylococcus aureus Blood cultures 12/25: No growth after 5 days (12) HIT (heparin-induced thrombocytopenia) Status: Resolved Plan: Hematology consult Serotonin release assay negative. HIT positive is likely a false positive result Continue to monitor platelets Patient has been started on fondaparinux per hematology Medical history: Heparin discontinued Argatroban discontinued per hematology (13) FEN/DVT PPX/GI PPX Status: Acute Plan: Fluids: None at this time Electrolytes: Will monitor and replace as needed Nutrition: Diabetic diet DVT Prophylaxis: Fondaparinux per orthopedic surgery. Okay from hematology to be on heparin prophylactically because of false positive HIT. GI Prophylaxis: Famotidine 10 mg IV every 12 hours Problem Qualifiers (1) Diabetic foot ulcer: Qualified Code: E11.621 - Diabetic ulcer of toe of left foot associated with type 2 diabetes mellitus, unspecified ulcer stage (2) Hypertension: Qualified Code: I10 - Essential hypertension (3) Hyperlipidemia: Qualified Code: E78.5 - Hyperlipidemia, unspecified hyperlipidemia type (4) Anemia: Qualified Code: D64.9 - Anemia, unspecified type (5) Diabetes: (6) Sepsis: Qualified Code: A41.9 - Sepsis, due to unspecified organism Freddie Barahona MD R2 Jan 12, 2017 09:07 (5) Diabetes: (6) Sepsis: Qualified Code: A41.9 - Sepsis, due to unspecified organism Freddie Barahona MD R2 Jan 12, 2017 09:07
[2017-01-12] MEDS: ARIPiprazole 5 MG TAB PO SCH (09:11)
[2017-01-12] MEDS: CITALOPRAM HYDROBROMIDE 20 MG TAB PO SCH (09:11)
[2017-01-12] MEDS: SODIUM CHLORIDE 0.9% FLUSH 10 ML FLUSH IV FLUSH SCH ×2 (09:11→20:50)
[2017-01-12] MEDS: DOCUSATE SODIUM 100 MG CAP PO SCH ×2 (09:11→20:49)
[2017-01-12] MEDS: MULTIVITAMINS/MINERALS THERAPEUTIC TAB PO SCH ×2 (09:11→20:49)
[2017-01-12] MEDS: DOCUSATE SODIUM 50 MG/SENNA 8.6 MG TAB PO SCH ×2 (09:11→20:50)
[2017-01-12] MEDS: LACTOBACILLUS ACIDOPHILUS 1 GM PACKET PO SCH ×3 (09:12→18:31)
[2017-01-12] MEDS: MUPIROCIN 2% CREAM 15 GM TOPICAL SCH ×2 (09:12→20:55)
[2017-01-12] MEDS: ACETAMINOPHEN/HYDROcodone 325 MG/5 MG TAB PO PRN (11:04)
[2017-01-12 12:00] VITALS: BP 115/64; PULSE 75; RESP 22; TEMP 98; O2SAT 95
[2017-01-12 16:00] VITALS: BP 120/59; PULSE 81; RESP 23; TEMP 98.3; O2SAT 95
[2017-01-12 20:00] VITALS: BP 148/65; PULSE 83; RESP 18; TEMP 97.4; O2SAT 96
[2017-01-12] MEDS: ATORVASTATIN 20 MG TAB PO SCH (20:49)
[2017-01-12] MEDS: FONDAPARINUX SODIUM 2.5 MG/0.5 ML SYRINGE SQ SCH (20:50)
[2017-01-12] MEDS: HYDROCORTISONE 2.5% CREAM 30 GM TOPICAL SCH (20:51)
[2017-01-13] VITALS: BP 160/75; PULSE 80; RESP 18; TEMP 97.2; O2SAT 96
[2017-01-13] MEDS: CHLORHEXIDINE GLUCONATE 2 % 1 PACK (2 CLOTHS) TOP SCH ×2 (04:00→20:55)
[2017-01-13] MEDS: INSULIN ASPART SUPPLEMENTAL SCALE SQ SCH ×4 (05:01→20:50)
[2017-01-13 05:07] LABS: ALT (GPT) 21 U/L (12-78); ANION GAP 5 MEQ/L (5-15); AST (GOT) 27 U/L (15-37); BICARBONATE 29.3 MEQ/L (21.0-32.0); BLOOD UREA NITROGEN 20 MG/DL (7-18); CHLORIDE 104 MEQ/L (98-107); GLOMERULAR FILTRATION RATE 56 ML/MIN (>89); POTASSIUM 4.7 MEQ/L (3.5-5.1); SODIUM (NA) 138 MEQ/L (136-145)
[2017-01-13 05:10] LABS: ALKALINE PHOSPHATASE 128 U/L (45-117); TOTAL BILIRUBIN ADULT 0.4 MG/DL (0.2-1.0)
[2017-01-13 08:00] VITALS: BP 128/71; PULSE 85; RESP 16; TEMP 97.9; O2SAT 94
--- NOTE | 2017-01-13 08:06 | HHI.FPPN ---
Addendum to progress note ADDENDUM Reason for addendum: Additonal documentation Additional information OFF SERVICE NOTE: Mr. Botello came in the hospital septic with an infected diabetic foot wound. He was initially admitted to the ICU with CC, podiatry, ID consults. He underwent partial resection of the 5th left metatarsal in hopes of salvaging his leg. 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 He was transferred out of the ICU shortly after his initial hospitalization, but it was determined by multiple specialists, including ID, podiatry, wound care that his infection needed at least a BKA. He initially refused this procedure but then finally consented to it. Orthopedic surgery performed a L BKA and the patient has been recovering well from this. ID recommended 5 days more of PO antibiotics which he has completed. He was safe for discharge over a week ago to a rehab or SNF, but he was denied by [facility] rehab. Case management has been helping with d/c obstacles. Two of his main obstacles are a lack of good insurance, and his home social situation. He was staying at his 90 year old aunts house (who has dementia and needs help herself), so it is unclear at this time if he will be able to go to that house. He is very close to his cousin (Armand Botello) who is an optholmologist in the area and whose mother is where Gold was living prior to coming to the hospital. His number is [phone]. Some chronic problems are worth mentioning: the patients first visit with an MD in years was with me in November. We starting him on Metformin, but he developed diarrhea, so we were going to try glipizide on d/c. Additionally, we started atorvastatin and amlodipine. We were going to try lisinopril, but he developed acute on chronic renal disease, so I would like him to see nephro as an outpatient before restarting lisinopril. Additionally, he has severe dysthymia and requires a great deal of encouragement to work with PT, which will likely slow his rehab a bit. See the last progress note for more information concerning when ortho wants to follow up with him regarding the BKA/ suture removal and other details of his stay here. Freddie Barahona MD R2 Jan 13, 2017 08:05
--- NOTE | 2017-01-13 08:17 | HHI.FPPN ---
Subjective Remarks No acute events overnight. Afebrile. BPs ranging 115-160/50s-70s. Patient states his pain is well controlled. He believes he is making progress with physical therapy. His goals are to be able to transfer from out of bed to his wheelchair and be able to do basic tasks on his own. He denies any fevers, CP, or SOB. Appetite is good. No difficulty voiding or stooling. (Chacorta France MD R1) Objective Vitals Vital Signs Date Time Temp Pulse Resp B/P Pulse Ox O2 Delivery O2 Flow Rate FiO2 01/13/17 00:00 97.2 80 18 160/75 96 01/12/17 20:00 97.4 83 18 148/65 96 01/12/17 16:00 98.3 81 23 120/59 95 01/12/17 12:00 98.0 75 22 115/64 95 I/O 01/12/17 01/12/17 01/12/17 01/13/17 01/13/17 01/13/17 07:00 15:00 23:00 07:00 15:00 23:00 Intake Total 240 ml 480 ml 360 ml 240 ml Output Total 1550 ml 1325 ml 1750 ml 1425 ml Balance -1310 ml -845 ml -1390 ml -1185 ml Intake Oral 240 ml 480 ml 360 ml 240 ml IV Total 0 ml Output Urine Total 1550 ml 1325 ml 1750 ml 1425 ml # Bowel Movements 0 1 0 0 (Chacorta France MD R1) Result Diagram: 01/10/17 0515 01/13/17 0422 Objective Remarks GENERAL: This is a well-nourished, well-developed patient, with depressed affect. SKIN: Status post left BKA. Currently wrapped per wound care. Macular papular rash on right arm and chest, overall improved compared to initial assessment but still present. HEAD: Atraumatic. Normocephalic. CARDIOVASCULAR: RRR RESPIRATORY: Clear to auscultation. Breath sounds equal bilaterally. No wheezes , rales, or rhonchi. GASTROINTESTINAL: Abdomen soft, non-tender, nondistended. No hepato-splenomegaly , or palpable masses. No guarding. MUSCULOSKELETAL: Status post left BKA. NEUROLOGICAL: Awake and alert. Cranial nerves grossly intact. PSYCH: Depressed mood and affect Procedures Left foot ankle incision and drainage with partial resection of the fifth metatarsal head Left BKA (Chacorta France MD R1) A/P Assessment and Plan 56-year-old male with a past medical history of complicated type 2 diabetes presented meeting sepsis criteria with diabetic left foot wound. 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 Requested physical therapy to work with the patient twice a day Discharge Planning Patient cleared from orthopedic standpoint. Follow-up with orthopedic surgery one week from 01/07 (on 01/14) for suture removal and wound check. Case management consulted for discharge needs. Discharge to SNF, possibly [facility]. Patient was denied by [facility]. Will need nursing home rehabilitation. [id number] has been signed for this SNF likelihood. Physical therapy consulted (Chacorta France MD R1) Attending Attestation Patient seen and examined, discussed with Dr. France. I agree with assessment and management as documented and discussed with me. BP elevated today - increase regimen. Await placement. (Andie Guerrero MD) Problem List: (1) Diabetic foot ulcer Status: Chronic Plan: Podiatry consulted Infectious disease consult Physical therapy consult Orthopedic surgery consult Status post left BKA on 12/23/16-okay for discharge from an orthopedic standpoint. Orthopedics will be available as needed. Pain control (Percocet DC secondary to rash): Lortab 1 tab every 4 hours when necessary pain 1-5, 2 tabs pain 6-10 Antibiotic history: Per infectious disease Augmentin 875 mg every 12 hours (started 01/02-01/06) Clindamycin IV discontinued (12/22-12/28) Zosyn also discontinued (12/22-12/26) Antibiotics per ID: Unasyn IV every 6 hours discontinued ( 12/26-01/01) History: -12/23: Status post left foot ankle incision drainage debridement partial resection of the 5th metatarsal head. -Intraoperative findings of metatarsal resection show severe necrosis down to periosteum of the midfoot, abscess severe. Wound culture: Staph aureus, enterococcus, mixed anaerobes Blood Cultures positive as listed under sepsis Most recent blood cultures from 12/25 no growth after 5 days Bone pathology left fifth metatarsal showing acute osteomyelitis (2) Skin rash Status: Acute Plan: Improving overall Likely was 2/2 antibiotic Augmentin (started 01/02-01/06) which is dc'd. Could also be related to pain medications (PO percocet was started 01/04-01/06). * Changed to Lortab, d/c Percocet * Topical hydrocortisone cream, change from PRN to LIBORIO as patient not asking for this and received only once on 01/07 * Benadryl PRN (3) Hypertension Status: Chronic Plan: Patient's blood pressures have been persistently elevated. Holding Lisinopril 5 mg daily which was started in November. Patient's urine microalbumin high at 173. He also likely has chronic kidney disease with persistently elevated creatinine Amlodipine 10 mg daily Consider starting a low dose diuretic. Continue to trend BPs as patient had persistently been in 140s-160s systolic however BPs ranging down to 110s systolic recently. Follow with nephrology as an outpatient. (4) Hyperlipidemia Status: Acute Plan: Labs from 12/11 show elevated LDL of 120. 10 year ASCVD risk score is 12% - recommendation is for a high-intensity statin * Started atorvastatin (5) Anemia Status: Chronic Plan: Hematology consulted Stable Likely secondary to chronic infection and recent BKA. Peripheral smear shows normochromic normocytic anemia Status post 2 units packed red blood cells on 12/22. Status post 2 units packed red blood cells on 12/25. Status post 2 units packed red blood cells on 12/31 Status post 2 units packed red blood cells on 01/04. Continue to monitor; transfuse when less than 7 Labs: Vitamin B12, B1, folate within normal limits. Iron, TIBC indicative of chronic inflammation. Hemoccult: Negative (6) TAYLOR (acute kidney injury) Status: Resolved Plan: Nephrology previously consulted, now available as needed. Follow with nephrology as outpatient Good urine output Repeat CMP in 1 week (7) Stage 1 decubitus ulcer in diabetic patient Status: Acute Plan: Notified 01/03 at 11 AM of stage I decubitus at the patient's sacrum. Wound care nursing consulted Offload areas of pressure per protocol Continue to work with physical therapy Soft mattress order Further orders per wound care (8) Diabetes Status: Chronic Plan: -Hemoglobin A1c on 12/11 was 6.9 Sliding scale insulin while in hospital. Patient has had diarrhea on metformin, likely will need to be discontinued as an outpatient and put on glipizide (9) Social issues Status: Acute Plan: Patient lives with his 90-year-old aunt who has dementia and is unable to take care of the patient on discharge. Case management consulted to assist with disposition. Needs nursing home rehabilitation on discharge (10) Anxiety and depression Status: Acute Plan: -Continue home Abilify 5 mg by mouth daily and Celexa 20 mg by mouth daily -Psychiatry consulted: Diagnosed with dysthymia; he has appropriate follow-up with psychiatry services in the community (11) Sepsis Status: Resolved Plan: Infectious disease consulted Vitals currently stable. Sources of sepsis is left foot wound. See antibiotic management under diabetic foot wound Blood cultures 12/21: Pasteurella, Staphylococcus aureus Blood cultures 12/25: No growth after 5 days (12) HIT (heparin-induced thrombocytopenia) Status: Resolved Plan: Hematology consult Serotonin release assay negative. HIT positive is likely a false positive result Continue to monitor platelets Patient has been started on fondaparinux per hematology Medical history: Heparin discontinued Argatroban discontinued per hematology (13) FEN/DVT PPX/GI PPX Status: Acute Plan: Fluids: None at this time Electrolytes: Will monitor and replace as needed Nutrition: Diabetic diet DVT Prophylaxis: Fondaparinux per orthopedic surgery. Okay from hematology to be on heparin prophylactically because of false positive HIT. GI Prophylaxis: Famotidine 10 mg IV every 12 hours (Chacorta France MD R1) Problem Qualifiers (1) Diabetic foot ulcer: Qualified Code: E11.621 - Diabetic ulcer of toe of left foot associated with type 2 diabetes mellitus, unspecified ulcer stage (2) Hypertension: Qualified Code: I10 - Essential hypertension (3) Hyperlipidemia: Qualified Code: E78.5 - Hyperlipidemia, unspecified hyperlipidemia type (4) Anemia: Qualified Code: D64.9 - Anemia, unspecified type (5) Diabetes: (6) Sepsis: Qualified Code: A41.9 - Sepsis, due to unspecified organism Chacorta France MD R1 Jan 13, 2017 08:17 Andie Guerrero MD Jan 13, 2017 12:07
[2017-01-13] MEDS: MULTIVITAMINS/MINERALS THERAPEUTIC TAB PO SCH ×2 (08:28→20:51)
[2017-01-13] MEDS: DOCUSATE SODIUM 100 MG CAP PO SCH ×2 (08:28→20:51)
[2017-01-13] MEDS: ARIPiprazole 5 MG TAB PO SCH (08:28)
[2017-01-13] MEDS: DOCUSATE SODIUM 50 MG/SENNA 8.6 MG TAB PO SCH ×2 (08:29→20:51)
[2017-01-13] MEDS: CITALOPRAM HYDROBROMIDE 20 MG TAB PO SCH (08:30)
[2017-01-13] MEDS: SODIUM CHLORIDE 0.9% FLUSH 10 ML FLUSH IV FLUSH SCH ×2 (08:30→20:53)
[2017-01-13] MEDS: LACTOBACILLUS ACIDOPHILUS 1 GM PACKET PO SCH ×3 (08:35→17:31)
[2017-01-13] MEDS: MUPIROCIN 2% CREAM 15 GM TOPICAL SCH ×2 (08:37→20:55)
[2017-01-13 12:00] VITALS: BP 112/54; PULSE 83; RESP 19; TEMP 98.4; O2SAT 92
[2017-01-13 14:30] LABS: AUTOMATED NEUTROPHIL # 4.7 TH/MM3 (1.8-7.7); BASOPHIL % 0.6 % (0.0-2.0); EOSINOPHIL # 0.5 TH/MM3 (0-0.4); EOSINOPHIL % 6.2 % (0.0-4.0); HEMATOCRIT 31.4 % (39.0-51.0); LYMPH % 20.3 % (9.0-44.0); LYMPHOCYTE # 1.7 TH/MM3 (1.0-4.8); MEAN CELL VOLUME 90.3 FL (80.0-100.0); MEAN CORPUSCULAR HGB CONC 33.2 % (32.0-36.0); MONO % 15.2 % (0.0-8.0); NEUT % 57.7 % (16.0-70.0); PLATELET COUNT 167 TH/MM3 (150-450); RED BLOOD COUNT 3.48 MIL/MM3 (4.50-5.90); WHITE BLOOD COUNT 8.2 TH/MM3 (4.0-11.0)
[2017-01-13 14:33] LABS: HEMO FLAGS AUTO DIFF
[2017-01-13 15:36] LABS: BANDS 4 % (0-6); EOSINOPHILS 3 % (0-4); MYELOCYTES 3 % (0-0); NEUTROPHIL # MANUAL DIFF 4.9 TH/MM3 (1.8-7.7); POLYS (SEG NEUTROPHILS) 53 % (16-70); WBC DIFF SAMPLE 100
[2017-01-13 15:38] LABS: PLATELET ESTIMATE SMEAR NORMAL (NORMAL); PLATELET MORPHOLOGY NORMAL (NORMAL); SCAN/DIFF FINAL DIFF MANUAL; TOXIC GRANULATION 1+ (NORMAL)
[2017-01-13 16:00] VITALS: BP 125/67; PULSE 87; RESP 18; TEMP 97.8; O2SAT 95
[2017-01-13 20:00] VITALS: BP 138/73; PULSE 94; RESP 21; TEMP 98.3; O2SAT 94
[2017-01-13] MEDS: FONDAPARINUX SODIUM 2.5 MG/0.5 ML SYRINGE SQ SCH (20:51)
[2017-01-13] MEDS: HYDROCORTISONE 2.5% CREAM 30 GM TOPICAL SCH (20:55)
[2017-01-13] MEDS: ATORVASTATIN 20 MG TAB PO SCH (21:03)
[2017-01-14] VITALS: BP 150/65; PULSE 88; RESP 20; TEMP 97.8; O2SAT 96
[2017-01-14] MEDS: INSULIN ASPART SUPPLEMENTAL SCALE SQ SCH ×4 (07:00→21:00)
[2017-01-14 08:00] VITALS: BP 155/73; PULSE 190; RESP 19; TEMP 96.9; O2SAT 94
[2017-01-14] MEDS: DOCUSATE SODIUM 100 MG CAP PO SCH ×2 (08:07→21:00)
[2017-01-14] MEDS: LACTOBACILLUS ACIDOPHILUS 1 GM PACKET PO SCH ×3 (08:07→16:57)
[2017-01-14] MEDS: ARIPiprazole 5 MG TAB PO SCH (08:07)
[2017-01-14] MEDS: CITALOPRAM HYDROBROMIDE 20 MG TAB PO SCH (08:07)
[2017-01-14] MEDS: MULTIVITAMINS/MINERALS THERAPEUTIC TAB PO SCH ×2 (08:07→22:08)
[2017-01-14] MEDS: DOCUSATE SODIUM 50 MG/SENNA 8.6 MG TAB PO SCH ×2 (08:08→21:00)
[2017-01-14] MEDS: SODIUM CHLORIDE 0.9% FLUSH 10 ML FLUSH IV FLUSH SCH ×2 (08:08→22:07)
[2017-01-14] MEDS: MUPIROCIN 2% CREAM 15 GM TOPICAL SCH ×2 (08:09→22:10)
--- NOTE | 2017-01-14 09:33 | HHI.FPPN ---
Subjective Remarks No acute events overnight. Afebrile, vital signs stable. Patient cleared for discharge from a medical and surgical perspective. Awaiting placement as Medicaid is pending. (Mary Manning MD R3) Objective Vitals Vital Signs Date Time Temp Pulse Resp B/P Pulse Ox O2 Delivery O2 Flow Rate FiO2 01/14/17 08:00 96.9 190 19 155/73 94 01/14/17 00:00 97.8 88 20 150/65 96 01/13/17 20:00 98.3 94 21 138/73 94 01/13/17 16:00 97.8 87 18 125/67 95 01/13/17 12:00 98.4 83 19 112/54 92 I/O 01/13/17 01/13/17 01/13/17 01/14/17 01/14/17 01/14/17 07:00 15:00 23:00 07:00 15:00 23:00 Intake Total 240 ml 480 ml 360 ml 240 ml Output Total 1425 ml 700 ml 1275 ml 1200 ml Balance -1185 ml -220 ml -915 ml -960 ml Intake Oral 240 ml 480 ml 360 ml 240 ml IV Total 0 ml 0 ml Output Urine Total 1425 ml 700 ml 1275 ml 1200 ml # Bowel Movements 0 0 1 1 (Mary Manning MD R3) Result Diagram: 01/13/17 1417 01/14/17 0448 Objective Remarks GENERAL: NAD. SKIN: Status post left BKA. Wrapped per wound care. HEAD: Atraumatic. Normocephalic. CARDIOVASCULAR: RRR RESPIRATORY: Clear to auscultation. Breath sounds equal bilaterally. No wheezes , rales, or rhonchi. GASTROINTESTINAL: Abdomen soft, non-tender, nondistended. No hepato-splenomegaly , or palpable masses. No guarding. MUSCULOSKELETAL: Status post left BKA. Left leg in brace. NEUROLOGICAL: Awake and alert. Cranial nerves grossly intact. PSYCH: Normal mood and affect Procedures Left foot ankle incision and drainage with partial resection of the fifth metatarsal head Left BKA (Mary Manning MD R3) A/P Assessment and Plan 56-year-old male with a past medical history of complicated type 2 diabetes presented meeting sepsis criteria with diabetic left foot wound. 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 Requested physical therapy to work with the patient twice a day Discharge Planning Patient cleared from orthopedic standpoint. Follow-up with orthopedic surgery one week from 01/07 (on 01/14) for suture removal and wound check. Case management consulted for discharge needs. At this time, patient is Medicaid pending. Case management is working on placement. (Mary Manning MD R3) Attending Attestation Patient seen and examined. Case reviewed and discussed. Agree with plan of care as discussed with me and documented in the resident note. (Nimisha Garcia MD) Problem List: (1) Diabetic foot ulcer Status: Chronic Plan: Podiatry consulted Infectious disease consult Physical therapy consult Orthopedic surgery consult Status post left BKA on 12/23/16-okay for discharge from an orthopedic standpoint. Orthopedics will be available as needed. Pain control (Percocet DC secondary to rash): Lortab 1 tab every 4 hours when necessary pain 1-5, 2 tabs pain 6-10 Antibiotic history: Per infectious disease Augmentin 875 mg every 12 hours (started 01/02-01/06) Clindamycin IV discontinued (12/22-12/28) Zosyn also discontinued (12/22-12/26) Antibiotics per ID: Unasyn IV every 6 hours discontinued ( 12/26-01/01) History: -12/23: Status post left foot ankle incision drainage debridement partial resection of the 5th metatarsal head. -Intraoperative findings of metatarsal resection show severe necrosis down to periosteum of the midfoot, abscess severe. Wound culture: Staph aureus, enterococcus, mixed anaerobes Blood Cultures positive as listed under sepsis Most recent blood cultures from 12/25 no growth after 5 days Bone pathology left fifth metatarsal showing acute osteomyelitis (2) Skin rash Status: Acute Plan: Resolved Likely was 2/2 antibiotic Augmentin (started 01/02-01/06) which is dc'd. Could also be related to pain medications (PO percocet was started 01/04-01/06). * Changed to Lortab, d/c Percocet * Topical hydrocortisone cream, change from PRN to LIBORIO as patient not asking for this and received only once on 01/07 * Benadryl PRN (3) Hypertension Status: Chronic Plan: Patient's blood pressures have been persistently elevated. Holding Lisinopril 5 mg daily which was started in November. Patient's urine microalbumin high at 173. He also likely has chronic kidney disease with persistently elevated creatinine Amlodipine 10 mg daily Consider starting a low dose diuretic. Continue to trend BPs as patient had persistently been in 140s-160s systolic however BPs ranging down to 110s systolic recently. Follow with nephrology as an outpatient. (4) Hyperlipidemia Status: Acute Plan: Labs from 12/11 show elevated LDL of 120. 10 year ASCVD risk score is 12% - recommendation is for a high-intensity statin * Started atorvastatin (5) Anemia Status: Chronic Plan: Hematology consulted Stable Likely secondary to chronic infection and recent BKA. Peripheral smear shows normochromic normocytic anemia Status post 2 units packed red blood cells on 12/22. Status post 2 units packed red blood cells on 12/25. Status post 2 units packed red blood cells on 12/31 Status post 2 units packed red blood cells on 01/04. H&H stable Labs: Vitamin B12, B1, folate within normal limits. Iron, TIBC indicative of chronic inflammation. Hemoccult: Negative (6) TAYLOR (acute kidney injury) Status: Resolved Plan: Nephrology previously consulted, now available as needed. Follow with nephrology as outpatient Good urine output Repeat CMP in 1 week (7) Stage 1 decubitus ulcer in diabetic patient Status: Acute Plan: Notified 01/03 at 11 AM of stage I decubitus at the patient's sacrum. Wound care nursing consulted Offload areas of pressure per protocol Continue to work with physical therapy Soft mattress order Further orders per wound care (8) Diabetes Status: Chronic Plan: Hemoglobin A1c on 12/11 was 6.9 Sliding scale insulin while in hospital. Patient has had diarrhea on metformin, likely will need to be discontinued as an outpatient and put on glipizide (9) Social issues Status: Acute Plan: Patient lives with his 90-year-old aunt who has dementia and is unable to take care of the patient on discharge. Case management consulted to assist with disposition. Needs senior care rehabilitation on discharge, see above for details. (10) Anxiety and depression Status: Acute Plan: -Continue home Abilify 5 mg by mouth daily and Celexa 20 mg by mouth daily -Psychiatry consulted: Diagnosed with dysthymia; he has appropriate follow-up with psychiatry services in the community (11) Sepsis Status: Resolved Plan: Infectious disease consulted Vitals currently stable. Sources of sepsis is left foot wound. See antibiotic management under diabetic foot wound Blood cultures 12/21: Pasteurella, Staphylococcus aureus Blood cultures 12/25: No growth after 5 days (12) HIT (heparin-induced thrombocytopenia) Status: Resolved Plan: Hematology consult Serotonin release assay negative. HIT positive is likely a false positive result Continue to monitor platelets Patient has been started on fondaparinux per hematology Medical history: Heparin discontinued Argatroban discontinued per hematology (13) FEN/DVT PPX/GI PPX Status: Acute Plan: Fluids: None Electrolytes: Will monitor and replace as needed Nutrition: Diabetic diet DVT Prophylaxis: Fondaparinux per orthopedic surgery. Okay from hematology to be on heparin prophylactically because of false positive HIT. GI Prophylaxis: Famotidine 10 mg IV every 12 hours (Mary Manning MD R3) Problem Qualifiers (1) Diabetic foot ulcer: Qualified Code: E11.621 - Diabetic ulcer of toe of left foot associated with type 2 diabetes mellitus, unspecified ulcer stage (2) Hypertension: Qualified Code: I10 - Essential hypertension (3) Hyperlipidemia: Qualified Code: E78.5 - Hyperlipidemia, unspecified hyperlipidemia type (4) Anemia: Qualified Code: D64.9 - Anemia, unspecified type (5) Diabetes: (6) Sepsis: Qualified Code: A41.9 - Sepsis, due to unspecified organism Mary Manning MD R3 Jan 14, 2017 09:33 Nimisha Garcia MD Jan 15, 2017 16:09
[2017-01-14 09:36] VITALS: BP 148/69; PULSE 96
[2017-01-14 12:00] VITALS: BP 140/70; PULSE 84; RESP 18; TEMP 96.8; O2SAT 96
[2017-01-14 16:00] VITALS: BP 155/74; PULSE 85; RESP 18; TEMP 96.6; O2SAT 96
[2017-01-14 20:00] VITALS: BP 153/73; PULSE 84; RESP 20; TEMP 97.9; O2SAT 97
[2017-01-14] MEDS: ATORVASTATIN 20 MG TAB PO SCH (22:08)
[2017-01-14] MEDS: FONDAPARINUX SODIUM 2.5 MG/0.5 ML SYRINGE SQ SCH (22:09)
[2017-01-14] MEDS: HYDROCORTISONE 2.5% CREAM 30 GM TOPICAL SCH (22:10)
--- NOTE | 2017-01-14 22:16 | PQ ---
Physician Query Response Document PATIENT: JUD HINKLE : 1960 ADMIT DATE: 12/22/2016 12:52 AM DISCH DATE: RESPONDING PROVIDER #: [email or web address] QUERY TEXT: Shock Type Shock is documented in the Medical Record. Please specify the type Such as: -- Cardiogenic -- Septic -- Hypovolemic -- Circulatory -- Hemorrhagic -- Traumatic -- Anaphylactic -- Other, please specify The patient's Clinical Indicators include: LEVOPHED SYSTOLIC BP 80'S CONSISTENTLY ON ADMISSION IV FLUID BOLUS TACHYCARIA FLUID RESUSCITATION Query created by: Perla Tang on 12/22/2016 9:26 AM RESPONSE TEXT: Septic Electronically signed by: Marcellus Bradley MD 01/14/2017 10:12 PM
[2017-01-15] VITALS (7 sets, daily range): BP systolic 120–170; BP diastolic 57–82; PULSE 81–90; RESP 17–19; TEMP 96.5–98.6; O2SAT 95–98
[2017-01-15] MEDS: CHLORHEXIDINE GLUCONATE 2 % 1 PACK (2 CLOTHS) TOP SCH (02:12)
[2017-01-15] MEDS: INSULIN ASPART SUPPLEMENTAL SCALE SQ SCH ×4 (06:08→21:00)
[2017-01-15] MEDS: DOCUSATE SODIUM 50 MG/SENNA 8.6 MG TAB PO SCH ×2 (09:00→21:00)
[2017-01-15] MEDS: MUPIROCIN 2% CREAM 15 GM TOPICAL SCH ×2 (09:00→21:28)
[2017-01-15] MEDS: ARIPiprazole 5 MG TAB PO SCH (09:43)
[2017-01-15] MEDS: DOCUSATE SODIUM 100 MG CAP PO SCH ×2 (09:43→21:00)
[2017-01-15] MEDS: CITALOPRAM HYDROBROMIDE 20 MG TAB PO SCH (09:43)
[2017-01-15] MEDS: LACTOBACILLUS ACIDOPHILUS 1 GM PACKET PO SCH ×3 (09:44→18:11)
[2017-01-15] MEDS: MULTIVITAMINS/MINERALS THERAPEUTIC TAB PO SCH ×2 (09:44→21:22)
[2017-01-15] MEDS: SODIUM CHLORIDE 0.9% FLUSH 10 ML FLUSH IV FLUSH SCH ×2 (09:47→21:27)
--- NOTE | 2017-01-15 10:04 | HHI.FPPN ---
Subjective Remarks No acute events overnight. Afebrile, vital signs stable. Patient has no complaints this morning. Having regular bowel movements. (Mary Manning MD R3) Objective Vitals Vital Signs Date Time Temp Pulse Resp B/P Pulse Ox O2 Delivery O2 Flow Rate FiO2 01/15/17 08:56 146/70 01/15/17 08:00 98.0 83 19 161/77 95 01/15/17 04:00 97.9 90 18 152/71 96 01/15/17 00:00 Room Air 01/15/17 00:00 98.6 84 18 170/82 98 01/14/17 20:00 97.9 84 20 153/73 97 01/14/17 20:00 Room Air 01/14/17 16:00 96.6 85 18 155/74 96 01/14/17 12:00 96.8 84 18 140/70 96 I/O 01/14/17 01/14/17 01/14/17 01/15/17 01/15/17 01/15/17 07:00 15:00 23:00 07:00 15:00 23:00 Intake Total 240 ml 240 ml 480 ml 360 ml Output Total 1200 ml 750 ml 800 ml 1200 ml Balance -960 ml -510 ml -320 ml -840 ml Intake Oral 240 ml 240 ml 480 ml 360 ml IV Total 0 ml Output Urine Total 1200 ml 750 ml 800 ml 1200 ml # Bowel Movements 1 1 (Mary Manning MD R3) Result Diagram: 01/13/17 1417 01/14/17 0448 Objective Remarks GENERAL: NAD. SKIN: Status post left BKA. Wrapped per wound care. HEAD: Atraumatic. Normocephalic. CARDIOVASCULAR: RRR RESPIRATORY: Clear to auscultation. Breath sounds equal bilaterally. No wheezes , rales, or rhonchi. GASTROINTESTINAL: Abdomen soft, non-tender, nondistended. No hepato-splenomegaly , or palpable masses. No guarding. MUSCULOSKELETAL: Status post left BKA. Left leg in brace. NEUROLOGICAL: Awake and alert. Cranial nerves grossly intact. PSYCH: Normal mood and affect Procedures Left foot ankle incision and drainage with partial resection of the fifth metatarsal head Left BKA (Mary Manning MD R3) A/P Assessment and Plan 56-year-old male with a past medical history of complicated type 2 diabetes presented meeting sepsis criteria with diabetic left foot wound. 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 Requested physical therapy to work with the patient twice a day Discharge Planning Patient cleared from orthopedic standpoint. Awaiting placement. (Mary Manning MD R3) Attending Attestation Patient seen and examined. Case reviewed and discussed. Agree with plan of care as discussed with me and documented in the resident note. (Nimisha Garcia MD) Problem List: (1) Diabetic foot ulcer Status: Chronic Plan: Podiatry consulted Infectious disease consult Physical therapy consult Orthopedic surgery consult Status post left BKA on 12/23/16-okay for discharge from an orthopedic standpoint. Orthopedics will be available as needed. Pain control (Percocet DC secondary to rash): Lortab 1 tab every 4 hours when necessary pain 1-5, 2 tabs pain 6-10 Antibiotic history: Per infectious disease Augmentin 875 mg every 12 hours (started 01/02-01/06) Clindamycin IV discontinued (12/22-12/28) Zosyn also discontinued (12/22-12/26) Antibiotics per ID: Unasyn IV every 6 hours discontinued ( 12/26-01/01) History: -12/23: Status post left foot ankle incision drainage debridement partial resection of the 5th metatarsal head. -Intraoperative findings of metatarsal resection show severe necrosis down to periosteum of the midfoot, abscess severe. Wound culture: Staph aureus, enterococcus, mixed anaerobes Blood Cultures positive as listed under sepsis Most recent blood cultures from 12/25 no growth after 5 days Bone pathology left fifth metatarsal showing acute osteomyelitis (2) Skin rash Status: Acute Plan: Resolved Likely was 2/2 antibiotic Augmentin (started 01/02-01/06) which is dc'd. Could also be related to pain medications (PO percocet was started 01/04-01/06). * Changed to Lortab, d/c Percocet * Topical hydrocortisone cream, change from PRN to LIBORIO as patient not asking for this and received only once on 01/07 * Benadryl PRN (3) Hypertension Status: Chronic Plan: Patient's blood pressures have been persistently elevated. Holding Lisinopril 5 mg daily which was started in November. Patient's urine microalbumin high at 173. He also likely has chronic kidney disease with persistently elevated creatinine Amlodipine 10 mg daily Add HCTZ 12.5 daily (4) Hyperlipidemia Status: Acute Plan: Labs from 12/11 show elevated LDL of 120. 10 year ASCVD risk score is 12% - recommendation is for a high-intensity statin * Started atorvastatin (5) Anemia Status: Chronic Plan: Hematology consulted Stable Likely secondary to chronic infection and recent BKA. Peripheral smear shows normochromic normocytic anemia Status post 2 units packed red blood cells on 12/22. Status post 2 units packed red blood cells on 12/25. Status post 2 units packed red blood cells on 12/31 Status post 2 units packed red blood cells on 01/04. H&H stable Labs: Vitamin B12, B1, folate within normal limits. Iron, TIBC indicative of chronic inflammation. Hemoccult: Negative (6) TAYLOR (acute kidney injury) Status: Resolved Plan: Nephrology previously consulted, now available as needed. Follow with nephrology as outpatient Good urine output Repeat CMP in 1 week (7) Stage 1 decubitus ulcer in diabetic patient Status: Acute Plan: Notified 01/03 at 11 AM of stage I decubitus at the patient's sacrum. Wound care nursing consulted Offload areas of pressure per protocol Continue to work with physical therapy Soft mattress order Further orders per wound care (8) Diabetes Status: Chronic Plan: Hemoglobin A1c on 12/11 was 6.9 Sliding scale insulin while in hospital. Patient has had diarrhea on metformin, likely will need to be discontinued as an outpatient and put on glipizide (9) Social issues Status: Acute Plan: Patient lives with his 90-year-old aunt who has dementia and is unable to take care of the patient on discharge. Case management consulted to assist with disposition. Needs shelter rehabilitation on discharge, see above for details. (10) Anxiety and depression Status: Acute Plan: -Continue home Abilify 5 mg by mouth daily and Celexa 20 mg by mouth daily -Psychiatry consulted: Diagnosed with dysthymia; he has appropriate follow-up with psychiatry services in the community (11) Sepsis Status: Resolved Plan: Infectious disease consulted Vitals currently stable. Sources of sepsis is left foot wound. See antibiotic management under diabetic foot wound Blood cultures 12/21: Pasteurella, Staphylococcus aureus Blood cultures 12/25: No growth after 5 days (12) HIT (heparin-induced thrombocytopenia) Status: Resolved Plan: Hematology consult Serotonin release assay negative. HIT positive is likely a false positive result Continue to monitor platelets Patient has been started on fondaparinux per hematology Medical history: Heparin discontinued Argatroban discontinued per hematology (13) FEN/DVT PPX/GI PPX Status: Acute Plan: Fluids: None Electrolytes: Will monitor and replace as needed Nutrition: Diabetic diet DVT Prophylaxis: Fondaparinux per orthopedic surgery. Okay from hematology to be on heparin prophylactically because of false positive HIT. GI Prophylaxis: Famotidine 10 mg IV every 12 hours (Mary Manning MD R3) Problem Qualifiers (1) Diabetic foot ulcer: Qualified Code: E11.621 - Diabetic ulcer of toe of left foot associated with type 2 diabetes mellitus, unspecified ulcer stage (2) Hypertension: Qualified Code: I10 - Essential hypertension (3) Hyperlipidemia: Qualified Code: E78.5 - Hyperlipidemia, unspecified hyperlipidemia type (4) Anemia: Qualified Code: D64.9 - Anemia, unspecified type (5) Diabetes: (6) Sepsis: Qualified Code: A41.9 - Sepsis, due to unspecified organism Mary Manning MD R3 Jan 15, 2017 10:03 Nimisha Garcia MD Jan 15, 2017 16:08
--- NOTE | 2017-01-15 11:27 | PD.ORT.PN ---
Subjective Post Op Day #: 14 Subjective Remarks Patient sitting upright in bed, awake and alert and answering questions appropriately. He has gotten up to a chair and has used a wheelchair successfully. Awaiting rehab placement. Objective Vitals Vital Signs Date Time Temp Pulse Resp B/P Pulse Ox O2 Delivery O2 Flow Rate FiO2 01/15/17 08:56 146/70 01/15/17 08:00 98.0 83 19 161/77 95 01/15/17 04:00 97.9 90 18 152/71 96 01/15/17 00:00 Room Air 01/15/17 00:00 98.6 84 18 170/82 98 01/14/17 20:00 97.9 84 20 153/73 97 01/14/17 20:00 Room Air 01/14/17 16:00 96.6 85 18 155/74 96 01/14/17 12:00 96.8 84 18 140/70 96 I/O 01/14/17 01/14/17 01/14/17 01/15/17 01/15/17 01/15/17 07:00 15:00 23:00 07:00 15:00 23:00 Intake Total 240 ml 240 ml 480 ml 360 ml Output Total 1200 ml 750 ml 800 ml 1200 ml Balance -960 ml -510 ml -320 ml -840 ml Intake Oral 240 ml 240 ml 480 ml 360 ml IV Total 0 ml Output Urine Total 1200 ml 750 ml 800 ml 1200 ml # Bowel Movements 1 1 Result Diagram: 01/13/17 1417 01/14/17 0448 Imaging Last Impressions Renal Ultrasound 12/25/16 0000 Signed Impressions: Service Date/Time: Sunday, December 25, 2016 13:28 - CONCLUSION: 1. Unremarkable ultrasound examination of the kidneys. Hang Lin MD Foot X-Ray 12/23/16 0000 Signed Impressions: Service Date/Time: Friday, December 23, 2016 09:40 - CONCLUSION: Soft tissue swelling and post surgical changes. Laureano Grider MD Foot MRI 12/22/16 0000 Signed Impressions: Service Date/Time: Thursday, December 22, 2016 16:49 - CONCLUSION: 1. Diffuse marrow edema involving the remaining portion of the left 5th metatarsal with extensive overlying soft-tissue swelling. The findings raise the possibility of osteomyelitis of the 5th metatarsal and overlying cellulitis. Clinical correlation is recommended. 2. Questionable nondisplaced fractures involving the bases of the left 3rd and 4th metatarsals with some associated marrow edema. Shade Kee MD Chest X-Ray [id number]/[id number] Signed Impressions: Service Date/Time: Wednesday, December 21, 2016 22:20 - CONCLUSION: No acute disease. Paramjit Bae MD Procedures Left below-knee amputation (01/01/17) Objective Remarks LLE: BKA. Dressing removed. Superficial necrosis and scabbing noted around sutures/incision line. Incision line has healed. Stump is warm with good cap refill. Blisters and bruised area have healed. He is able to do a straight leg raise and bend his knee without difficulty. Assessment & Plan Ortho Post Op Day #: 14 Problem List: (1) Osteomyelitis of left foot (2) Sepsis (3) Anaerobic bacterial infection (4) Cellulitis (5) Diabetes (6) Hyperlipidemia Assessment and Plan The patient's orthopedic status is stable postoperatively #14. Suture removal today. Keep incision dry. Clean with alcohol daily. Keep CKS on while in bed. Ok to come out of splint for gentle ROM of knee / to sit in chair. Clear for discharge from an orthopedic standpoint when medically stable and arrangements made per case management. Follow up with Dr. Moctezuma in 2-3 weeks Amaris Vidal Jan 15, 2017 11:27
[2017-01-15] MEDS: ACETAMINOPHEN/HYDROcodone 325 MG/5 MG TAB PO PRN (13:43)
[2017-01-15] MEDS: HYDROCHLOROTHIAZIDE 12.5 MG CAP PO SCH (13:55)
[2017-01-15] MEDS: FONDAPARINUX SODIUM 2.5 MG/0.5 ML SYRINGE SQ SCH (21:22)
[2017-01-15] MEDS: ATORVASTATIN 20 MG TAB PO SCH (21:22)
[2017-01-15] MEDS: HYDROCORTISONE 2.5% CREAM 30 GM TOPICAL SCH (21:28)
[2017-01-16] VITALS: BP 145/79; PULSE 86; RESP 20; TEMP 95.9; O2SAT 98
[2017-01-16] MEDS: CHLORHEXIDINE GLUCONATE 2 % 1 PACK (2 CLOTHS) TOP SCH (03:50)
[2017-01-16] MEDS: INSULIN ASPART SUPPLEMENTAL SCALE SQ SCH ×4 (06:06→21:00)
[2017-01-16 08:00] VITALS: BP 144/82; PULSE 84; RESP 14; TEMP 98.4; O2SAT 95
[2017-01-16] MEDS: ARIPiprazole 5 MG TAB PO SCH (08:10)
[2017-01-16] MEDS: DOCUSATE SODIUM 100 MG CAP PO SCH ×2 (08:11→20:27)
[2017-01-16] MEDS: CITALOPRAM HYDROBROMIDE 20 MG TAB PO SCH (08:11)
[2017-01-16] MEDS: HYDROCHLOROTHIAZIDE 12.5 MG CAP PO SCH (08:11)
[2017-01-16] MEDS: DOCUSATE SODIUM 50 MG/SENNA 8.6 MG TAB PO SCH ×2 (08:12→20:27)
[2017-01-16] MEDS: SODIUM CHLORIDE 0.9% FLUSH 10 ML FLUSH IV FLUSH SCH ×2 (08:12→20:27)
[2017-01-16] MEDS: LACTOBACILLUS ACIDOPHILUS 1 GM PACKET PO SCH ×3 (08:17→17:58)
[2017-01-16] MEDS: MULTIVITAMINS/MINERALS THERAPEUTIC TAB PO SCH ×2 (08:18→20:27)
--- NOTE | 2017-01-16 08:25 | HHI.FPPN ---
Subjective Remarks Patient resting comfortably. No concerns today. Just finished breakfast. The sutures on his left lower extremity were removed yesterday 01/15, and he denies any increased redness or drainage. He denies fevers or chills. Nursing noticed redness over his right buttock, with ulceration. (Jonnathan Louise MD R2) Objective Vitals Vital Signs Date Time Temp Pulse Resp B/P Pulse Ox O2 Delivery O2 Flow Rate FiO2 01/16/17 08:00 98.4 84 14 144/82 95 01/16/17 00:00 95.9 86 20 145/79 98 01/15/17 20:00 96.6 81 17 139/67 96 01/15/17 16:00 96.5 83 18 120/57 95 01/15/17 12:00 97.3 84 18 148/69 95 01/15/17 08:56 146/70 I/O 01/15/17 01/15/17 01/15/17 01/16/17 01/16/17 01/16/17 07:00 15:00 23:00 07:00 15:00 23:00 Intake Total 360 ml 240 ml 480 ml 240 ml Output Total 1200 ml 500 ml 1000 ml 1200 ml Balance -840 ml -260 ml -520 ml -960 ml Intake Oral 360 ml 240 ml 480 ml 240 ml Output Urine Total 1200 ml 500 ml 1000 ml 1200 ml # Bowel Movements 0 1 (Jonnathan Louise MD R2) Result Diagram: 01/13/17 1417 01/14/17 0448 Objective Remarks GENERAL: NAD. SKIN: Status post left BKA. Wrapped per wound care. HEAD: Atraumatic. Normocephalic. CARDIOVASCULAR: RRR RESPIRATORY: Clear to auscultation. Breath sounds equal bilaterally. No wheezes , rales, or rhonchi. GASTROINTESTINAL: Abdomen soft, non-tender, nondistended. No hepato-splenomegaly , or palpable masses. No guarding. MUSCULOSKELETAL: Status post left BKA. Left leg in brace. NEUROLOGICAL: Awake and alert. Cranial nerves grossly intact. PSYCH: Normal mood and affect Procedures Left foot ankle incision and drainage with partial resection of the fifth metatarsal head Left BKA (Jonnathan Louise MD R2) A/P Assessment and Plan 56-year-old male with a past medical history of complicated type 2 diabetes presented meeting sepsis criteria with diabetic left foot wound. 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 Requested physical therapy to work with the patient twice a day Discharge Planning Patient cleared from orthopedic standpoint. Awaiting placement. (Jonnathan Louise MD R2) Attending Attestation Patient seen and examined. Case reviewed and discussed Agree with plan of care as discussed with me and documented in the resident note. (Nimisha Garcia MD) Problem List: (1) Diabetic foot ulcer Status: Chronic Plan: Podiatry consulted Infectious disease consult Physical therapy consult Orthopedic surgery consult Status post left BKA on 12/23/16-okay for discharge from an orthopedic standpoint. Orthopedics will be available as needed. Pain control (Percocet DC secondary to rash): Lortab 1 tab every 4 hours when necessary pain 1-5, 2 tabs pain 6-10 Antibiotic history: Per infectious disease Augmentin 875 mg every 12 hours (started 01/02-01/06) Clindamycin IV discontinued (12/22-12/28) Zosyn also discontinued (12/22-12/26) Antibiotics per ID: Unasyn IV every 6 hours discontinued ( 12/26-01/01) History: -12/23: Status post left foot ankle incision drainage debridement partial resection of the 5th metatarsal head. -Intraoperative findings of metatarsal resection show severe necrosis down to periosteum of the midfoot, abscess severe. Wound culture: Staph aureus, enterococcus, mixed anaerobes Blood Cultures positive as listed under sepsis Most recent blood cultures from 12/25 no growth after 5 days Bone pathology left fifth metatarsal showing acute osteomyelitis (2) Skin rash Status: Acute Plan: Resolved Likely was 2/2 antibiotic Augmentin (started 01/02-01/06) which is dc'd. Could also be related to pain medications (PO percocet was started 01/04-01/06). * Changed to Lortab, d/c Percocet * Topical hydrocortisone cream, change from PRN to LIBORIO as patient not asking for this and received only once on 01/07 * Benadryl PRN (3) Hypertension Status: Chronic Plan: Patient's blood pressures have been persistently elevated. Holding Lisinopril 5 mg daily which was started in November. Patient's urine microalbumin high at 173. He also likely has chronic kidney disease with persistently elevated creatinine Amlodipine 10 mg daily Add HCTZ 12.5 daily (4) Hyperlipidemia Status: Acute Plan: Labs from 12/11 show elevated LDL of 120. 10 year ASCVD risk score is 12% - recommendation is for a high-intensity statin * Started atorvastatin (5) Anemia Status: Chronic Plan: Hematology consulted Stable Likely secondary to chronic infection and recent BKA. Peripheral smear shows normochromic normocytic anemia Status post 2 units packed red blood cells on 12/22. Status post 2 units packed red blood cells on 12/25. Status post 2 units packed red blood cells on 12/31 Status post 2 units packed red blood cells on 01/04. H&H stable Labs: Vitamin B12, B1, folate within normal limits. Iron, TIBC indicative of chronic inflammation. Hemoccult: Negative (6) ATYLOR (acute kidney injury) Status: Resolved Plan: Nephrology previously consulted, now available as needed. Follow with nephrology as outpatient Good urine output Repeat CMP in 1 week (7) Stage 1 decubitus ulcer in diabetic patient Status: Acute Plan: Notified 01/03 at 11 AM of stage I decubitus at the patient's sacrum. On breakdown of epidermis, Stage 2 ulcer. Wound care nursing consulted Offload areas of pressure per protocol Continue to work with physical therapy Soft mattress order Further orders per wound care (8) Diabetes Status: Chronic Plan: Hemoglobin A1c on 12/11 was 6.9 Sliding scale insulin while in hospital. Patient has had diarrhea on metformin, likely will need to be discontinued as an outpatient and put on glipizide (9) Social issues Status: Acute Plan: Patient lives with his 90-year-old aunt who has dementia and is unable to take care of the patient on discharge. Case management consulted to assist with disposition. Needs residential rehabilitation on discharge, see above for details. (10) Anxiety and depression Status: Acute Plan: -Continue home Abilify 5 mg by mouth daily and Celexa 20 mg by mouth daily -Psychiatry consulted: Diagnosed with dysthymia; he has appropriate follow-up with psychiatry services in the community (11) Sepsis Status: Resolved Plan: Infectious disease consulted Vitals currently stable. Sources of sepsis is left foot wound. See antibiotic management under diabetic foot wound Blood cultures 12/21: Pasteurella, Staphylococcus aureus Blood cultures 12/25: No growth after 5 days (12) HIT (heparin-induced thrombocytopenia) Status: Resolved Plan: Hematology consult Serotonin release assay negative. HIT positive is likely a false positive result Continue to monitor platelets Patient has been started on fondaparinux per hematology Medical history: Heparin discontinued Argatroban discontinued per hematology (13) FEN/DVT PPX/GI PPX Status: Acute Plan: Fluids: None Electrolytes: Will monitor and replace as needed Nutrition: Diabetic diet DVT Prophylaxis: Fondaparinux per orthopedic surgery. Okay from hematology to be on heparin prophylactically because of false positive HIT. GI Prophylaxis: Famotidine 10 mg IV every 12 hours (Jonnathan Louise MD R2) Problem Qualifiers (1) Diabetic foot ulcer: Qualified Code: E11.621 - Diabetic ulcer of toe of left foot associated with type 2 diabetes mellitus, unspecified ulcer stage (2) Hypertension: Qualified Code: I10 - Essential hypertension (3) Hyperlipidemia: Qualified Code: E78.5 - Hyperlipidemia, unspecified hyperlipidemia type (4) Anemia: Qualified Code: D64.9 - Anemia, unspecified type (5) Diabetes: (6) Sepsis: Qualified Code: A41.9 - Sepsis, due to unspecified organism Jonnathan Louise MD R2 Jan 16, 2017 08:25 Nimisha Garcia MD Jan 16, 2017 16:02
[2017-01-16] MEDS: MUPIROCIN 2% CREAM 15 GM TOPICAL SCH ×2 (09:00→20:32)
[2017-01-16 12:00] VITALS: BP 104/56; PULSE 85; RESP 16; TEMP 97.1; O2SAT 96
[2017-01-16 16:00] VITALS: BP 128/65; PULSE 94; RESP 18; TEMP 97.5; O2SAT 97
[2017-01-16 20:00] VITALS: BP 160/75; PULSE 87; RESP 22; TEMP 97.1; O2SAT 97
[2017-01-16] MEDS: FONDAPARINUX SODIUM 2.5 MG/0.5 ML SYRINGE SQ SCH (20:27)
[2017-01-16] MEDS: ATORVASTATIN 20 MG TAB PO SCH (20:27)
[2017-01-16] MEDS: HYDROCORTISONE 2.5% CREAM 30 GM TOPICAL SCH (20:32)
[2017-01-17] VITALS: BP 155/77; PULSE 83; RESP 20; TEMP 97.4; O2SAT 98
[2017-01-17] MEDS: CHLORHEXIDINE GLUCONATE 2 % 1 PACK (2 CLOTHS) TOP SCH (04:00)
[2017-01-17] MEDS: INSULIN ASPART SUPPLEMENTAL SCALE SQ SCH ×4 (05:26→21:00)
[2017-01-17 08:00] VITALS: BP 145/75; PULSE 80; RESP 16; TEMP 97; O2SAT 99
[2017-01-17] MEDS: DOCUSATE SODIUM 50 MG/SENNA 8.6 MG TAB PO SCH ×2 (09:00→21:00)
[2017-01-17] MEDS: SODIUM CHLORIDE 0.9% FLUSH 10 ML FLUSH IV FLUSH SCH ×2 (09:00→22:12)
[2017-01-17] MEDS: MUPIROCIN 2% CREAM 15 GM TOPICAL SCH ×2 (09:00→21:00)
[2017-01-17] MEDS: DOCUSATE SODIUM 100 MG CAP PO SCH ×2 (09:00→21:00)
--- NOTE | 2017-01-17 09:19 | HHI.FPPN ---
Subjective Remarks No urinary events overnight. Afebrile, vital signs stable. Patient with no complaints this morning. Continues to participate with physical therapy. ( Mary Manning MD R3) Objective Vitals Vital Signs Date Time Temp Pulse Resp B/P Pulse Ox O2 Delivery O2 Flow Rate FiO2 01/17/17 08:00 97.0 80 16 145/75 99 01/17/17 00:00 97.4 83 20 155/77 98 01/16/17 20:00 97.1 87 22 160/75 97 01/16/17 16:00 97.5 94 18 128/65 97 01/16/17 12:00 97.1 85 16 104/56 96 I/O 01/16/17 01/16/17 01/16/17 01/17/17 01/17/17 01/17/17 07:00 15:00 23:00 07:00 15:00 23:00 Intake Total 240 ml 600 ml 320 ml 480 ml Output Total 1200 ml 500 ml 550 ml 1600 ml Balance -960 ml 100 ml -230 ml -1120 ml Intake Oral 240 ml 600 ml 320 ml 480 ml Output Urine Total 1200 ml 500 ml 550 ml 1600 ml # Bowel Movements 1 0 0 0 (Mary Manning MD R3) Result Diagram: 01/13/17 1417 01/14/17 0448 Objective Remarks GENERAL: NAD. SKIN: Status post left BKA. Incision clean/dry/intact. Sutures removed. HEAD: Atraumatic. Normocephalic. CARDIOVASCULAR: RRR RESPIRATORY: Clear to auscultation. Breath sounds equal bilaterally. No wheezes , rales, or rhonchi. GASTROINTESTINAL: Abdomen soft, non-tender, nondistended. No hepato-splenomegaly , or palpable masses. No guarding. MUSCULOSKELETAL: Status post left BKA. Left leg in brace. NEUROLOGICAL: Awake and alert. Cranial nerves grossly intact. PSYCH: Normal mood and affect Procedures Left foot ankle incision and drainage with partial resection of the fifth metatarsal head Left BKA (Mary Manning MD R3) A/P Assessment and Plan 56-year-old male with a past medical history of complicated type 2 diabetes presented meeting sepsis criteria with diabetic left foot wound. 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 Requested physical therapy to work with the patient twice a day Discharge Planning Patient cleared from orthopedic standpoint. Awaiting placement. (Mary Manning MD R3) Attending Attestation Patient seen and examined. Case reviewed and discussed Agree with plan of care as discussed with me and documented in the resident note. (Nimisha Garcia MD) Problem List: (1) Diabetic foot ulcer Status: Chronic Plan: Status post BKA on 12/23/16 for diabetic foot ulcer with osteomyelitis. Antibiotic history is documented below. Patient cleared for rehabilitation, awaiting placement. Antibiotic history: Per infectious disease Augmentin 875 mg every 12 hours (started 01/02-01/06) Clindamycin IV (12/22-12/28) Zosyn also discontinued (12/22-12/26) Antibiotics per ID: Unasyn IV every 6 hours discontinued ( 12/26-01/01) (2) Skin rash Status: Acute Plan: Resolved Likely was 2/2 antibiotic Augmentin (started 01/02-01/06) which is dc'd. Could also be related to pain medications (PO percocet was started 01/04-01/06). * Changed to Lortab, d/c Percocet * Topical hydrocortisone cream, change from PRN to LIBORIO as patient not asking for this and received only once on 01/07 * Benadryl PRN (3) Hypertension Status: Chronic Plan: Patient's blood pressures have been persistently elevated. Restart lisinopril 10 mg daily Amlodipine 10 mg daily HCTZ 25 mg daily (4) Hyperlipidemia Status: Acute Plan: Labs from 12/11 show elevated LDL of 120. 10 year ASCVD risk score is 12% - recommendation is for a high-intensity statin * Started atorvastatin (5) Anemia Status: Chronic Plan: Stable. Hematology consulted. Status post transfusion 4. Anemia workup unremarkable. (6) TAYLOR (acute kidney injury) Status: Resolved Plan: Acute on chronic renal disease. Creatinine improved with IV fluid hydration. Allergy consulted, appreciate recommendations (7) Stage 1 decubitus ulcer in diabetic patient Status: Acute Plan: Notified 01/03 at 11 AM of stage I decubitus at the patient's sacrum. On breakdown of epidermis, Stage 2 ulcer. Wound care nursing consulted Offload areas of pressure per protocol Continue to work with physical therapy Soft mattress order Further orders per wound care (8) Diabetes Status: Chronic Plan: Hemoglobin A1c on 12/11 was 6.9 Sliding scale insulin while in hospital. Patient has had diarrhea on metformin, likely will need to be discontinued as an outpatient and put on glipizide (9) Social issues Status: Acute Plan: Patient lives with his 90-year-old aunt who has dementia and is unable to take care of the patient on discharge. Case management consulted to assist with disposition. 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 HIT positive is likely a false positive result Continue to monitor platelets Patient has been started on fondaparinux per hematology Medical history: Heparin discontinued Argatroban discontinued per hematology (12) FEN/DVT PPX/GI PPX Status: Acute Plan: Fluids: None Electrolytes: Will monitor and replace as needed Nutrition: Diabetic diet DVT Prophylaxis: Fondaparinux per orthopedic surgery. Okay from hematology to be on heparin prophylactically because of false positive HIT. GI Prophylaxis: Famotidine 10 mg IV every 12 hours (Mary Manning MD R3) Problem Qualifiers (1) Diabetic foot ulcer: Qualified Code: E11.621 - Diabetic ulcer of toe of left foot associated with type 2 diabetes mellitus, unspecified ulcer stage (2) Hypertension: Qualified Code: I10 - Essential hypertension (3) Hyperlipidemia: Qualified Code: E78.5 - Hyperlipidemia, unspecified hyperlipidemia type (4) Anemia: Qualified Code: D64.9 - Anemia, unspecified type (5) Diabetes: Mary Manning MD R3 Jan 17, 2017 09:19 Nimisha Garcia MD Jan 18, 2017 17:19
[2017-01-17] MEDS: LACTOBACILLUS ACIDOPHILUS 1 GM PACKET PO SCH ×3 (10:09→18:00)
[2017-01-17] MEDS: ARIPiprazole 5 MG TAB PO SCH (10:09)
[2017-01-17] MEDS: CITALOPRAM HYDROBROMIDE 20 MG TAB PO SCH (10:10)
[2017-01-17] MEDS: MULTIVITAMINS/MINERALS THERAPEUTIC TAB PO SCH ×2 (10:11→22:07)
[2017-01-17] MEDS: LISINOPRIL 10 MG TAB PO SCH (10:19)
[2017-01-17] MEDS: HYDROCHLOROTHIAZIDE 25 MG TAB PO SCH (10:20)
[2017-01-17 12:00] VITALS: BP 146/72; PULSE 84; RESP 18; TEMP 96.8; O2SAT 100
[2017-01-17] MEDS: ACETAMINOPHEN/HYDROcodone 325 MG/5 MG TAB PO PRN (14:01)
[2017-01-17 16:00] VITALS: BP 119/65; PULSE 80; RESP 20; TEMP 96.6; O2SAT 98
[2017-01-17 20:00] VITALS: BP 129/65; PULSE 89; RESP 22; TEMP 97.2; O2SAT 98
[2017-01-17] MEDS: HYDROCORTISONE 2.5% CREAM 30 GM TOPICAL SCH (21:00)
[2017-01-17] MEDS: ATORVASTATIN 20 MG TAB PO SCH (22:07)
[2017-01-17] MEDS: FONDAPARINUX SODIUM 2.5 MG/0.5 ML SYRINGE SQ SCH (22:08)
[2017-01-18] VITALS: BP 136/74; PULSE 82; RESP 20; TEMP 96.8; O2SAT 97
[2017-01-18] MEDS: CHLORHEXIDINE GLUCONATE 2 % 1 PACK (2 CLOTHS) TOP SCH (04:00)
[2017-01-18] MEDS: INSULIN ASPART SUPPLEMENTAL SCALE SQ SCH ×4 (07:00→21:00)
[2017-01-18 08:00] VITALS: BP 152/70; PULSE 80; RESP 14; TEMP 96.4; O2SAT 98
--- NOTE | 2017-01-18 08:17 | HHI.FPPN ---
Subjective Remarks No concerns today. AFVSS. Eating well. Working with physical therapy. Stable. Awaiting placement in inpatient rehab / SNF. Pleasant. (Jonnathan Louise MD R2) Objective Vitals Vital Signs Date Time Temp Pulse Resp B/P Pulse Ox O2 Delivery O2 Flow Rate FiO2 01/18/17 07:31 Room Air 01/18/17 00:00 96.8 82 20 136/74 97 01/17/17 20:00 97.2 89 22 129/65 98 01/17/17 16:00 96.6 80 20 119/65 98 01/17/17 12:00 96.8 84 18 146/72 100 I/O 01/17/17 01/17/17 01/17/17 01/18/17 01/18/17 01/18/17 07:00 15:00 23:00 07:00 15:00 23:00 Intake Total 480 ml 800 ml 480 ml 320 ml Output Total 1600 ml 1200 ml 550 ml 1450 ml Balance -1120 ml -400 ml -70 ml -1130 ml Intake Oral 480 ml 800 ml 480 ml 320 ml Output Urine Total 1600 ml 1200 ml 550 ml 1450 ml # Bowel Movements 0 1 0 0 (Jonnathan Louise MD R2) Result Diagram: 01/14/17 0448 Objective Remarks GENERAL: NAD. SKIN: Status post left BKA. Incision clean/dry/intact. Sutures removed. HEAD: Atraumatic. Normocephalic. CARDIOVASCULAR: RRR RESPIRATORY: Clear to auscultation. Breath sounds equal bilaterally. No wheezes , rales, or rhonchi. GASTROINTESTINAL: Abdomen soft, non-tender, nondistended. No hepato-splenomegaly , or palpable masses. No guarding. MUSCULOSKELETAL: Status post left BKA. Left leg in brace. NEUROLOGICAL: Awake and alert. Cranial nerves grossly intact. PSYCH: Normal mood and affect Procedures Left foot ankle incision and drainage with partial resection of the fifth metatarsal head Left BKA (Jonnathan Louise MD R2) A/P Assessment and Plan 56-year-old male with a past medical history of complicated type 2 diabetes presented meeting sepsis criteria with diabetic left foot wound. 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 Requested physical therapy to work with the patient twice a day Discharge Planning Patient cleared from orthopedic standpoint. Awaiting placement. (Jonnathan Louise MD R2) Attending Attestation Patient seen and examined. Case reviewed and discussed Agree with plan of care as discussed with me and documented in the resident note. (Nimisha Garcia MD) Problem List: (1) Diabetic foot ulcer Status: Chronic Plan: Status post BKA on 12/23/16 for diabetic foot ulcer with osteomyelitis. Antibiotic history is documented below. Patient cleared for rehabilitation, awaiting placement. Antibiotic history: Per infectious disease Augmentin 875 mg every 12 hours (started 01/02-01/06) Clindamycin IV (12/22-12/28) Zosyn also discontinued (12/22-12/26) Antibiotics per ID: Unasyn IV every 6 hours discontinued ( 12/26-01/01) (2) Skin rash Status: Acute Plan: Resolved Likely was 2/2 antibiotic Augmentin (started 01/02-01/06) which is dc'd. Could also be related to pain medications (PO percocet was started 01/04-01/06). * Changed to Lortab, d/c Percocet * Topical hydrocortisone cream, change from PRN to LIBORIO as patient not asking for this and received only once on 01/07 * Benadryl PRN (3) Hypertension Status: Chronic Plan: BP better controlled with addition of lisinopril (129/65). Cont lisinopril 10 mg daily - CR/BUN on 01/18 was 1.42 and 51 (at baseline), will continue to monitor. Amlodipine 10 mg daily HCTZ 25 mg daily (4) Hyperlipidemia Status: Acute Plan: Labs from 12/11 show elevated LDL of 120. 10 year ASCVD risk score is 12% - recommendation is for a high-intensity statin * Started atorvastatin (5) Anemia Status: Chronic Plan: Stable. Hematology consulted. Status post transfusion 4. Anemia workup unremarkable. (6) TAYLOR (acute kidney injury) Status: Resolved Plan: Acute on chronic renal disease. Creatinine improved with IV fluid hydration. Allergy consulted, appreciate recommendations (7) Stage 1 decubitus ulcer in diabetic patient Status: Acute Plan: Notified 01/03 at 11 AM of stage I decubitus at the patient's sacrum. On breakdown of epidermis, Stage 2 ulcer. Wound care nursing consulted Offload areas of pressure per protocol Continue to work with physical therapy Soft mattress order Further orders per wound care (8) Diabetes Status: Chronic Plan: Hemoglobin A1c on 12/11 was 6.9 Sliding scale insulin while in hospital. Patient has had diarrhea on metformin, likely will need to be discontinued as an outpatient and put on glipizide (9) Social issues Status: Acute Plan: Case management consulted to assist with disposition. 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 HIT positive is likely a false positive result Continue to monitor platelets Patient has been started on fondaparinux per hematology Medical history: Heparin discontinued Argatroban discontinued per hematology (12) FEN/DVT PPX/GI PPX Status: Acute Plan: Fluids: None Electrolytes: Will monitor and replace as needed Nutrition: Diabetic diet DVT Prophylaxis: Fondaparinux per orthopedic surgery. Okay from hematology to be on heparin prophylactically because of false positive HIT. GI Prophylaxis: Famotidine 10 mg IV every [address] Garcia. (Jonnathan Louise MD R2) Problem Qualifiers (1) Diabetic foot ulcer: Qualified Code: E11.621 - Diabetic ulcer of toe of left foot associated with type 2 diabetes mellitus, unspecified ulcer stage (2) Hypertension: Qualified Code: I10 - Essential hypertension (3) Hyperlipidemia: Qualified Code: E78.5 - Hyperlipidemia, unspecified hyperlipidemia type (4) Anemia: Qualified Code: D64.9 - Anemia, unspecified type (5) Diabetes: Jonnathan Louise MD R2 Jan 18, 2017 08:17 Nimisha Garcia MD Jan 18, 2017 17:20
[2017-01-18] MEDS: DOCUSATE SODIUM 100 MG CAP PO SCH ×2 (08:26→19:52)
[2017-01-18] MEDS: DOCUSATE SODIUM 50 MG/SENNA 8.6 MG TAB PO SCH ×2 (08:27→19:53)
[2017-01-18] MEDS: MUPIROCIN 2% CREAM 15 GM TOPICAL SCH ×2 (08:28→19:53)
[2017-01-18] MEDS: LACTOBACILLUS ACIDOPHILUS 1 GM PACKET PO SCH ×3 (08:31→16:40)
[2017-01-18] MEDS: MULTIVITAMINS/MINERALS THERAPEUTIC TAB PO SCH ×2 (08:31→19:52)
[2017-01-18] MEDS: ARIPiprazole 5 MG TAB PO SCH (08:31)
[2017-01-18] MEDS: SODIUM CHLORIDE 0.9% FLUSH 10 ML FLUSH IV FLUSH SCH ×2 (08:31→19:53)
[2017-01-18] MEDS: CITALOPRAM HYDROBROMIDE 20 MG TAB PO SCH (08:31)
[2017-01-18] MEDS: HYDROCHLOROTHIAZIDE 25 MG TAB PO SCH (08:31)
[2017-01-18] MEDS: LISINOPRIL 10 MG TAB PO SCH (08:31)
[2017-01-18 12:00] VITALS: BP 141/72; PULSE 78; RESP 16; TEMP 97.2; O2SAT 98
[2017-01-18 16:00] VITALS: BP 132/66; PULSE 82; RESP 18; TEMP 98; O2SAT 98
[2017-01-18] MEDS: FONDAPARINUX SODIUM 2.5 MG/0.5 ML SYRINGE SQ SCH (19:52)
[2017-01-18] MEDS: ATORVASTATIN 20 MG TAB PO SCH (19:52)
[2017-01-18] MEDS: HYDROCORTISONE 2.5% CREAM 30 GM TOPICAL SCH (19:53)
[2017-01-18 20:00] VITALS: BP 142/75; PULSE 86; RESP 20; TEMP 96.6; O2SAT 99
[2017-01-18 22:07] VITALS: BP 142/75; PULSE 86; RESP 20; TEMP 96.6; O2SAT 99
[2017-01-19] VITALS: BP 129/62; PULSE 83; RESP 18; TEMP 98.1; O2SAT 96
[2017-01-19] MEDS: CHLORHEXIDINE GLUCONATE 2 % 1 PACK (2 CLOTHS) TOP SCH (04:00)
[2017-01-19] MEDS: INSULIN ASPART SUPPLEMENTAL SCALE SQ SCH ×4 (06:04→20:12)
[2017-01-19 06:50] LABS: AUTOMATED NEUTROPHIL # 4.1 TH/MM3 (1.8-7.7); BASOPHIL # 0.1 TH/MM3 (0-0.2); BASOPHIL % 0.6 % (0.0-2.0); EOSINOPHIL # 0.5 TH/MM3 (0-0.4); EOSINOPHIL % 6.5 % (0.0-4.0); HEMATOCRIT 30.1 % (39.0-51.0); LYMPH % 29.3 % (9.0-44.0); LYMPHOCYTE # 2.5 TH/MM3 (1.0-4.8); MEAN CELL VOLUME 89.5 FL (80.0-100.0); MEAN CORPUSCULAR HEMOGLOBIN 30.2 PG (27.0-34.0); MEAN CORPUSCULAR HGB CONC 33.8 % (32.0-36.0); MONO % 14.4 % (0.0-8.0); NEUT % 49.2 % (16.0-70.0); PLATELET COUNT 200 TH/MM3 (150-450); RED BLOOD COUNT 3.37 MIL/MM3 (4.50-5.90); RED CELL DISTRIBUTION WIDTH 17.5 % (11.6-17.2); WHITE BLOOD COUNT 8.4 TH/MM3 (4.0-11.0)
[2017-01-19 07:04] LABS: POTASSIUM 4.9 MEQ/L (3.5-5.1)
[2017-01-19 07:22] LABS: HEMO FLAGS AUTO DIFF
[2017-01-19 08:00] VITALS: BP 138/66; PULSE 78; RESP 17; TEMP 96.9; O2SAT 98
[2017-01-19] MEDS: CITALOPRAM HYDROBROMIDE 20 MG TAB PO SCH (10:32)
[2017-01-19] MEDS: ARIPiprazole 5 MG TAB PO SCH (10:32)
[2017-01-19] MEDS: MULTIVITAMINS/MINERALS THERAPEUTIC TAB PO SCH ×2 (10:32→20:10)
[2017-01-19] MEDS: LISINOPRIL 10 MG TAB PO SCH (10:32)
[2017-01-19] MEDS: HYDROCHLOROTHIAZIDE 25 MG TAB PO SCH (10:33)
[2017-01-19] MEDS: LACTOBACILLUS ACIDOPHILUS 1 GM PACKET PO SCH ×3 (10:33→18:03)
[2017-01-19] MEDS: DOCUSATE SODIUM 100 MG CAP PO SCH ×3 (10:36→20:13)
[2017-01-19] MEDS: DOCUSATE SODIUM 50 MG/SENNA 8.6 MG TAB PO SCH ×3 (10:36→20:13)
[2017-01-19] MEDS: MUPIROCIN 2% CREAM 15 GM TOPICAL SCH ×2 (10:38→20:12)
[2017-01-19] MEDS: SODIUM CHLORIDE 0.9% FLUSH 10 ML FLUSH IV FLUSH SCH ×2 (10:38→20:10)
[2017-01-19 10:51] LABS: SCAN/DIFF AUTO DIFF CONFIRMED
[2017-01-19 12:00] VITALS: BP 126/71; PULSE 79; RESP 17; TEMP 95.7; O2SAT 98
--- NOTE | 2017-01-19 13:43 | HHI.FPPN ---
Subjective Remarks No acute events overnight. Afebrile, vital signs stable. Patient with no complaints at this time. He needs to work with physical therapy and believes this is improving. (Mary Manning MD R3) Objective Vitals Vital Signs Date Time Temp Pulse Resp B/P Pulse Ox O2 Delivery O2 Flow Rate FiO2 01/19/17 12:00 95.7 79 17 126/71 98 01/19/17 08:00 96.9 78 17 138/66 98 01/19/17 00:00 98.1 83 18 129/62 96 01/18/17 22:07 96.6 86 20 142/75 99 01/18/17 16:00 98.0 82 18 132/66 98 I/O 01/18/17 01/18/17 01/18/17 01/19/17 01/19/17 01/19/17 07:00 15:00 23:00 07:00 15:00 23:00 Intake Total 320 ml 800 ml 240 ml 480 ml Output Total 1450 ml 1100 ml 0 ml 2100 ml Balance -1130 ml -300 ml 240 ml -1620 ml Intake Oral 320 ml 800 ml 240 ml 480 ml IV Total 0 ml Output Urine Total 1450 ml 1100 ml 0 ml 2100 ml # Bowel Movements 0 1 0 1 (Mary Manning MD R3) Result Diagram: 01/19/17 0544 01/19/17 0514 Objective Remarks GENERAL: NAD. SKIN: Status post left BKA. Incision clean/dry/intact. Sutures removed. HEAD: Atraumatic. Normocephalic. CARDIOVASCULAR: RRR RESPIRATORY: Clear to auscultation. Breath sounds equal bilaterally. No wheezes , rales, or rhonchi. GASTROINTESTINAL: Abdomen soft, non-tender, nondistended. No hepato-splenomegaly , or palpable masses. No guarding. MUSCULOSKELETAL: Status post left BKA. Incision clean/dry/intact and well healing. NEUROLOGICAL: Awake and alert. Cranial nerves grossly intact. PSYCH: Normal mood and affect Procedures Left foot ankle incision and drainage with partial resection of the fifth metatarsal head Left BKA (Mary Manning MD R3) A/P Assessment and Plan 56-year-old male with a past medical history of complicated type 2 diabetes presented meeting sepsis criteria with diabetic left foot wound. 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 Requested physical therapy to work with the patient twice a day Discharge Planning Patient cleared from orthopedic standpoint. Awaiting placement. (Mary Manning MD R3) Attending Attestation Patient seen and examined with the resident team. Case reviewed and discussed Agree with plan of care as discussed with me and documented in the resident note. (Nimisha Garcia MD) Problem List: (1) Diabetic foot ulcer Status: Chronic Plan: Status post BKA on 12/23/16 for diabetic foot ulcer with osteomyelitis. Antibiotic history is documented below. Patient cleared for rehabilitation, awaiting placement. Antibiotic history: Per infectious disease Augmentin 875 mg every 12 hours (started 01/02-01/06) Clindamycin IV (12/22-12/28) Zosyn also discontinued (12/22-12/26) Antibiotics per ID: Unasyn IV every 6 hours discontinued ( 12/26-01/01) (2) Skin rash Status: Acute Plan: Resolved Likely was 2/2 antibiotic Augmentin (started 01/02-01/06) which is dc'd. Could also be related to pain medications (PO percocet was started 01/04-01/06). * Changed to Lortab, d/c Percocet * Topical hydrocortisone cream, change from PRN to LIBORIO as patient not asking for this and received only once on 01/07 * Benadryl PRN (3) Hypertension Status: Chronic Plan: BP better controlled with addition of lisinopril (129/65). Cont lisinopril 10 mg daily - CR/BUN on 01/18 was 1.42 and 51 (at baseline), will continue to monitor. Amlodipine 10 mg daily HCTZ 25 mg daily (4) Hyperlipidemia Status: Acute Plan: Labs from 12/11 show elevated LDL of 120. 10 year ASCVD risk score is 12% - recommendation is for a high-intensity statin * Started atorvastatin (5) Anemia Status: Chronic Plan: Stable. Hematology consulted. Status post transfusion 4. Anemia workup unremarkable. (6) TAYLOR (acute kidney injury) Status: Resolved Plan: Acute on chronic renal disease. Creatinine improved with IV fluid hydration. (7) Stage 1 decubitus ulcer in diabetic patient Status: Acute Plan: Notified 01/03 at 11 AM of stage I decubitus at the patient's sacrum. On breakdown of epidermis, Stage 2 ulcer. Wound care nursing consulted Offload areas of pressure per protocol Continue to work with physical therapy Soft mattress order Further orders per wound care (8) Diabetes Status: Chronic Plan: Hemoglobin A1c on 12/11 was 6.9 Sliding scale insulin while in hospital. Patient has had diarrhea on metformin, likely will need to be discontinued as an outpatient and put on glipizide (9) Social issues Status: Acute Plan: Case management consulted to assist with disposition. 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 HIT positive is likely a false positive result Continue to monitor platelets Patient has been started on fondaparinux per hematology Medical history: Heparin discontinued Argatroban discontinued per hematology (12) FEN/DVT PPX/GI PPX Status: Acute Plan: Fluids: None Electrolytes: Will monitor and replace as needed Nutrition: Diabetic diet DVT Prophylaxis: Fondaparinux per orthopedic surgery. Okay from hematology to be on heparin prophylactically because of false positive HIT. GI Prophylaxis: Famotidine 10 mg IV every [address] Garcia. (Mary Manning MD R3) Problem Qualifiers (1) Diabetic foot ulcer: Qualified Code: E11.621 - Diabetic ulcer of toe of left foot associated with type 2 diabetes mellitus, unspecified ulcer stage (2) Hypertension: Qualified Code: I10 - Essential hypertension (3) Hyperlipidemia: Qualified Code: E78.5 - Hyperlipidemia, unspecified hyperlipidemia type (4) Anemia: Qualified Code: D64.9 - Anemia, unspecified type (5) Diabetes: Mary Manning MD R3 Jan 19, 2017 13:43 Nimisha Garcia MD Jan 19, 2017 14:25
[2017-01-19 16:00] VITALS: BP 103/55; PULSE 77; RESP 17; TEMP 96.5; O2SAT 98
[2017-01-19 20:00] VITALS: BP 122/60; PULSE 82; RESP 17; TEMP 97.5; O2SAT 97
[2017-01-19] MEDS: FONDAPARINUX SODIUM 2.5 MG/0.5 ML SYRINGE SQ SCH (20:10)
[2017-01-19] MEDS: ATORVASTATIN 20 MG TAB PO SCH (20:10)
[2017-01-19] MEDS: HYDROCORTISONE 2.5% CREAM 30 GM TOPICAL SCH (20:12)
[2017-01-19 23:53] VITALS: BP 132/67; PULSE 69; RESP 18; TEMP 96.7; O2SAT 96
[2017-01-20] MEDS: CHLORHEXIDINE GLUCONATE 2 % 1 PACK (2 CLOTHS) TOP SCH (03:31)
[2017-01-20] MEDS: INSULIN ASPART SUPPLEMENTAL SCALE SQ SCH ×4 (05:44→20:27)
[2017-01-20 08:00] VITALS: BP 139/68; PULSE 79; RESP 16; TEMP 97.2; O2SAT 98
[2017-01-20] MEDS: HYDROCHLOROTHIAZIDE 25 MG TAB PO SCH (08:58)
[2017-01-20] MEDS: LISINOPRIL 10 MG TAB PO SCH (08:58)
[2017-01-20] MEDS: ARIPiprazole 5 MG TAB PO SCH (08:58)
[2017-01-20] MEDS: DOCUSATE SODIUM 100 MG CAP PO SCH ×2 (08:58→20:12)
[2017-01-20] MEDS: DOCUSATE SODIUM 50 MG/SENNA 8.6 MG TAB PO SCH ×2 (08:58→20:12)
[2017-01-20] MEDS: CITALOPRAM HYDROBROMIDE 20 MG TAB PO SCH (08:58)
[2017-01-20] MEDS: MULTIVITAMINS/MINERALS THERAPEUTIC TAB PO SCH ×2 (08:58→20:16)
[2017-01-20] MEDS: LACTOBACILLUS ACIDOPHILUS 1 GM PACKET PO SCH ×3 (08:59→17:42)
[2017-01-20] MEDS: MUPIROCIN 2% CREAM 15 GM TOPICAL SCH ×2 (08:59→20:16)
[2017-01-20] MEDS: SODIUM CHLORIDE 0.9% FLUSH 10 ML FLUSH IV FLUSH SCH ×2 (08:59→20:16)
--- NOTE | 2017-01-20 10:17 | HHI.FPPN ---
Subjective Remarks No concerns or complaints. Working with PT to get to chair and use wheelchair. Pleasant today. Medically clear for discharge. Objective Vitals Vital Signs Date Time Temp Pulse Resp B/P Pulse Ox O2 Delivery O2 Flow Rate FiO2 01/20/17 08:00 97.2 79 16 139/68 98 01/19/17 23:53 96.7 69 18 132/67 96 01/19/17 20:00 97.5 82 17 122/60 97 01/19/17 16:00 96.5 77 17 103/55 98 01/19/17 12:00 95.7 79 17 126/71 98 I/O 01/19/17 01/19/17 01/19/17 01/20/17 01/20/17 01/20/17 07:00 15:00 23:00 07:00 15:00 23:00 Intake Total 480 ml 620 ml 450 ml 360 ml Output Total 2100 ml 625 ml 1500 ml 1000 ml Balance -1620 ml -5 ml -1050 ml -640 ml Intake Oral 480 ml 620 ml 450 ml 360 ml Output Urine Total 2100 ml 625 ml 1500 ml 1000 ml # Bowel Movements 1 0 1 1 Result Diagram: 01/19/17 0544 01/19/17 0514 Objective Remarks GENERAL: NAD. SKIN: Status post left BKA. Incision clean/dry/intact. Sutures removed. HEAD: Atraumatic. Normocephalic. CARDIOVASCULAR: RRR RESPIRATORY: Clear to auscultation. Breath sounds equal bilaterally. No wheezes , rales, or rhonchi. GASTROINTESTINAL: Abdomen soft, non-tender, nondistended. No hepato-splenomegaly , or palpable masses. No guarding. MUSCULOSKELETAL: Status post left BKA. Incision clean/dry/intact and well healing. NEUROLOGICAL: Awake and alert. Cranial nerves grossly intact. PSYCH: Normal mood and affect Procedures Left foot ankle incision and drainage with partial resection of the fifth metatarsal head Left BKA A/P Assessment and Plan 56-year-old male with a past medical history of complicated type 2 diabetes presented meeting sepsis criteria with diabetic left foot wound. 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 Requested physical therapy to work with the patient twice a day Discharge Planning Patient cleared from orthopedic standpoint. Awaiting placement. Problem List: (1) Diabetic foot ulcer Status: Chronic Plan: Status post BKA on 12/23/16 for diabetic foot ulcer with osteomyelitis. Antibiotic history is documented below. Patient cleared for rehabilitation, awaiting placement. Antibiotic history: Per infectious disease Augmentin 875 mg every 12 hours (started 01/02-01/06) Clindamycin IV (12/22-12/28) Zosyn also discontinued (12/22-12/26) Antibiotics per ID: Unasyn IV every 6 hours discontinued ( 12/26-01/01) (2) Skin rash Status: Acute Plan: Resolved Likely was 2/2 antibiotic Augmentin (started 01/02-01/06) which is dc'd. Could also be related to pain medications (PO percocet was started 01/04-01/06). * Changed to Lortab, d/c Percocet * Topical hydrocortisone cream, change from PRN to LIBORIO as patient not asking for this and received only once on 01/07 * Benadryl PRN (3) Hypertension Status: Chronic Plan: BP better controlled with addition of lisinopril (129/65). Cont lisinopril 10 mg daily - CR/BUN on 01/18 was 1.42 and 51 (at baseline), will continue to monitor. Amlodipine 10 mg daily HCTZ 25 mg daily (4) Hyperlipidemia Status: Acute Plan: Labs from 12/11 show elevated LDL of 120. 10 year ASCVD risk score is 12% - recommendation is for a high-intensity statin * Started atorvastatin (5) Anemia Status: Chronic Plan: Stable. Hematology consulted. Status post transfusion 4. Anemia workup unremarkable. (6) TAYLOR (acute kidney injury) Status: Resolved Plan: Acute on chronic renal disease. Creatinine improved with IV fluid hydration. (7) Stage 1 decubitus ulcer in diabetic patient Status: Acute Plan: Notified 01/03 at 11 AM of stage I decubitus at the patient's sacrum. On breakdown of epidermis, Stage 2 ulcer. Wound care nursing consulted Offload areas of pressure per protocol Continue to work with physical therapy Soft mattress order Further orders per wound care (8) Diabetes Status: Chronic Plan: Hemoglobin A1c on 12/11 was 6.9 Sliding scale insulin while in hospital. Patient has had diarrhea on metformin, likely will need to be discontinued as an outpatient and put on glipizide (9) Social issues Status: Acute Plan: Case management consulted to assist with disposition. 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 HIT positive is likely a false positive result Continue to monitor platelets Patient has been started on fondaparinux per hematology Medical history: Heparin discontinued Argatroban discontinued per hematology (12) FEN/DVT PPX/GI PPX Status: Acute Plan: Fluids: None Electrolytes: Will monitor and replace as needed Nutrition: Diabetic diet DVT Prophylaxis: Fondaparinux per orthopedic surgery. Okay from hematology to be on heparin prophylactically because of false positive HIT. GI Prophylaxis: Famotidine 10 mg IV every [address] Garcia. Problem Qualifiers (1) Diabetic foot ulcer: Qualified Code: E11.621 - Diabetic ulcer of toe of left foot associated with type 2 diabetes mellitus, unspecified ulcer stage (2) Hypertension: Qualified Code: I10 - Essential hypertension (3) Hyperlipidemia: Qualified Code: E78.5 - Hyperlipidemia, unspecified hyperlipidemia type (4) Anemia: Qualified Code: D64.9 - Anemia, unspecified type (5) Diabetes: Jonnathan Louise MD R2 Jan 20, 2017 10:16
[2017-01-20 12:00] VITALS: BP 117/63; PULSE 81; RESP 18; TEMP 95.8; O2SAT 98
[2017-01-20 16:00] VITALS: BP 109/59; PULSE 78; RESP 17; TEMP 97.4; O2SAT 97
[2017-01-20 20:00] VITALS: BP 114/57; PULSE 69; RESP 18; TEMP 97.5; O2SAT 95
[2017-01-20] MEDS: ATORVASTATIN 20 MG TAB PO SCH (20:16)
[2017-01-20] MEDS: FONDAPARINUX SODIUM 2.5 MG/0.5 ML SYRINGE SQ SCH (20:16)
[2017-01-20] MEDS: HYDROCORTISONE 2.5% CREAM 30 GM TOPICAL SCH (20:16)
[2017-01-21] VITALS: BP_SYST 125; BP_SYST 134; BP_DIAS 65; BP_DIAS 69; PULSE 68; PULSE 79; RESP 18; TEMP 96.9; O2SAT 96; O2SAT 97
[2017-01-21] MEDS: CHLORHEXIDINE GLUCONATE 2 % 1 PACK (2 CLOTHS) TOP SCH ×2 (04:00→22:48)
[2017-01-21] MEDS: INSULIN ASPART SUPPLEMENTAL SCALE SQ SCH ×4 (05:37→21:00)
[2017-01-21 08:00] VITALS: BP 131/60; PULSE 77; RESP 18; TEMP 96.7; O2SAT 98
[2017-01-21] MEDS: DOCUSATE SODIUM 50 MG/SENNA 8.6 MG TAB PO SCH ×2 (08:10→21:00)
[2017-01-21] MEDS: DOCUSATE SODIUM 100 MG CAP PO SCH ×2 (08:10→21:00)
[2017-01-21] MEDS: LISINOPRIL 10 MG TAB PO SCH (08:10)
[2017-01-21] MEDS: CITALOPRAM HYDROBROMIDE 20 MG TAB PO SCH (08:10)
[2017-01-21] MEDS: ARIPiprazole 5 MG TAB PO SCH (08:11)
[2017-01-21] MEDS: SODIUM CHLORIDE 0.9% FLUSH 10 ML FLUSH IV FLUSH SCH ×2 (08:11→21:17)
[2017-01-21] MEDS: HYDROCHLOROTHIAZIDE 25 MG TAB PO SCH (08:11)
[2017-01-21] MEDS: LACTOBACILLUS ACIDOPHILUS 1 GM PACKET PO SCH ×3 (08:11→16:58)
[2017-01-21] MEDS: MULTIVITAMINS/MINERALS THERAPEUTIC TAB PO SCH ×2 (08:11→21:18)
[2017-01-21] MEDS: MUPIROCIN 2% CREAM 15 GM TOPICAL SCH ×2 (08:12→21:00)
[2017-01-21 12:00] VITALS: BP 116/71; PULSE 82; RESP 18; TEMP 96.1; O2SAT 99
--- NOTE | 2017-01-21 16:02 | HHI.FPPN ---
Subjective Remarks No acute events overnight. Patient lying in bed comfortably. He states he would like to be discharged however understands the barriers to this. (Mary Manning MD R3) Objective Vitals Vital Signs Date Time Temp Pulse Resp B/P Pulse Ox O2 Delivery O2 Flow Rate FiO2 01/21/17 12:00 96.1 82 18 116/71 99 01/21/17 08:00 96.7 77 18 131/60 98 01/21/17 00:00 96.9 79 18 125/65 96 01/20/17 20:00 97.5 69 18 114/57 95 01/20/17 16:00 97.4 78 17 109/59 97 I/O 01/20/17 01/20/17 01/20/17 01/21/17 01/21/17 01/21/17 07:00 15:00 23:00 07:00 15:00 23:00 Intake Total 360 ml 920 ml 480 ml 380 ml Output Total 1000 ml 650 ml 800 ml 1000 ml Balance -640 ml 270 ml -320 ml -620 ml Intake Oral 360 ml 920 ml 480 ml 380 ml Output Urine Total 1000 ml 650 ml 800 ml 1000 ml # Bowel Movements 1 0 1 1 (Mary Manning MD R3) Result Diagram: 01/19/17 0544 01/19/17 0514 Objective Remarks GENERAL: NAD. SKIN: Status post left BKA. Incision clean/dry/intact. Sutures removed. HEAD: Atraumatic. Normocephalic. CARDIOVASCULAR: RRR RESPIRATORY: Clear to auscultation. Breath sounds equal bilaterally. No wheezes , rales, or rhonchi. GASTROINTESTINAL: Abdomen soft, non-tender, nondistended. No hepato-splenomegaly , or palpable masses. No guarding. MUSCULOSKELETAL: Status post left BKA. Incision clean/dry/intact and well healing. NEUROLOGICAL: Awake and alert. Cranial nerves grossly intact. PSYCH: Normal mood and affect Procedures Left foot ankle incision and drainage with partial resection of the fifth metatarsal head Left BKA (Mary Manning MD R3) A/P Assessment and Plan 56-year-old male with a past medical history of complicated type 2 diabetes presented meeting sepsis criteria with diabetic left foot wound. 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 Requested physical therapy to work with the patient twice a day Discharge Planning Patient cleared from orthopedic standpoint. Patient cleared for SNF with PT however his Medicaid will not cover this. He needs continued physical therapy and is currently not safe for discharge. [facility] has evaluated the patient and did not accept him. The patient will be discharged once he is able to care for himself safely with outpatient physical therapy. (Mary Manning MD R3) Attending Attestation Patient seen and examined Case reviewed and discussed Agree with plan of care as discussed with me and documented in the resident note. (Nimisha Garcia MD) Problem List: (1) Diabetic foot ulcer Status: Chronic Plan: Status post BKA on 12/23/16 for diabetic foot ulcer with osteomyelitis. Antibiotic history is documented below. Patient cleared for rehabilitation, placement issues as above. Antibiotic history: Per infectious disease Augmentin 875 mg every 12 hours (started 01/02-01/06) Clindamycin IV (12/22-12/28) Zosyn also discontinued (12/22-12/26) Antibiotics per ID: Unasyn IV every 6 hours discontinued ( 12/26-01/01) (2) Skin rash Status: Resolved Plan: Resolved Likely was 2/2 antibiotic Augmentin (started 01/02-01/06) which is dc'd. Could also be related to pain medications (PO percocet was started 01/04-01/06). * Changed to Lortab, d/c Percocet * Hydrocortisone cream when necessary (3) Hypertension Status: Chronic Plan: BP better controlled with addition of lisinopril Amlodipine 10 mg daily HCTZ 25 mg daily (4) Hyperlipidemia Status: Acute Plan: Labs from 12/11 show elevated LDL of 120. 10 year ASCVD risk score is 12% - recommendation is for a high-intensity statin * Started atorvastatin (5) Anemia Status: Chronic Plan: Stable. Hematology consulted. Status post transfusion 4. Anemia workup unremarkable. (6) TAYLOR (acute kidney injury) Status: Acute Plan: Acute on chronic renal disease. Creatinine improved with IV fluid hydration. (7) Stage 1 decubitus ulcer in diabetic patient Status: Acute Plan: Notified 01/03 at 11 AM of stage I decubitus at the patient's sacrum. On breakdown of epidermis, Stage 2 ulcer. Wound care nursing consulted Offload areas of pressure per protocol Continue to work with physical therapy Soft mattress order Further orders per wound care (8) Diabetes Status: Chronic Plan: Hemoglobin A1c on 12/11 was 6.9 Sliding scale insulin while in hospital. Patient has had diarrhea on metformin, likely will need to be discontinued as an outpatient and put on glipizide (9) Social issues Status: Acute Plan: Case management consulted to assist with disposition. Patient has no one to help care for him at home and is currently not safe for discharge. Details as above. Consider transfer to [place]. 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 HIT positive is likely a false positive result Continue to monitor platelets Patient has been started on fondaparinux per hematology Medical history: Heparin discontinued Argatroban discontinued per hematology (12) FEN/DVT PPX/GI PPX Status: Acute Plan: Fluids: None Electrolytes: Will monitor and replace as needed Nutrition: Diabetic diet DVT Prophylaxis: Fondaparinux per orthopedic surgery. Okay from hematology to be on heparin prophylactically because of false positive HIT. GI Prophylaxis: Famotidine 10 mg IV every 12 hours (Mary Manning MD R3) Problem Qualifiers (1) Diabetic foot ulcer: Qualified Code: E11.621 - Diabetic ulcer of toe of left foot associated with type 2 diabetes mellitus, unspecified ulcer stage (2) Hypertension: Qualified Code: I10 - Essential hypertension (3) Hyperlipidemia: Qualified Code: E78.5 - Hyperlipidemia, unspecified hyperlipidemia type (4) Anemia: Qualified Code: D64.9 - Anemia, unspecified type (5) Diabetes: Mary Manning MD R3 Jan 21, 2017 16:02 Nimisha Garcia MD Jan 31, 2017 11:21
[2017-01-21 16:22] VITALS: BP 108/65; PULSE 81; RESP 18; TEMP 96.7; O2SAT 98
[2017-01-21 20:00] VITALS: BP 126/70; PULSE 69; RESP 17; TEMP 96.8; O2SAT 96
[2017-01-21] MEDS: HYDROCORTISONE 2.5% CREAM 30 GM TOPICAL SCH (21:00)
[2017-01-21] MEDS: ATORVASTATIN 20 MG TAB PO SCH (21:18)
[2017-01-21] MEDS: FONDAPARINUX SODIUM 2.5 MG/0.5 ML SYRINGE SQ SCH (21:19)
[2017-01-22 00:30] VITALS: BP 134/70; PULSE 77; RESP 18; TEMP 97.4; O2SAT 94
[2017-01-22] MEDS: INSULIN ASPART SUPPLEMENTAL SCALE SQ SCH ×4 (06:30→21:00)
[2017-01-22 08:00] VITALS: BP 150/75; PULSE 77; RESP 18; TEMP 97.3; O2SAT 98
--- NOTE | 2017-01-22 08:53 | HHI.FPPN ---
Subjective Remarks No acute events overnight. Patient continues to work with physical therapy. ( Mayr Manning MD R3) Objective Vitals Vital Signs Date Time Temp Pulse Resp B/P Pulse Ox O2 Delivery O2 Flow Rate FiO2 01/22/17 08:00 97.3 77 18 150/75 98 01/22/17 00:30 97.4 77 18 134/70 94 01/21/17 20:00 96.8 69 17 126/70 96 01/21/17 16:22 96.7 81 18 108/65 98 01/21/17 12:00 96.1 82 18 116/71 99 I/O 01/21/17 01/21/17 01/21/17 01/22/17 01/22/17 01/22/17 07:00 15:00 23:00 07:00 15:00 23:00 Intake Total 380 ml 480 ml 340 ml Output Total 1000 ml 1000 ml 800 ml Balance -620 ml -520 ml -460 ml Intake Oral 380 ml 480 ml 340 ml IV Total 0 ml Output Urine Total 1000 ml 1000 ml 800 ml # Voids 2 # Bowel Movements 1 1 (Mary Manning MD R3) Result Diagram: 01/19/17 0544 01/19/17 0514 Objective Remarks GENERAL: NAD. SKIN: Status post left BKA. Incision clean/dry/intact. Sutures removed. HEAD: Atraumatic. Normocephalic. CARDIOVASCULAR: RRR RESPIRATORY: Clear to auscultation. Breath sounds equal bilaterally. No wheezes , rales, or rhonchi. GASTROINTESTINAL: Abdomen soft, non-tender, nondistended. No hepato-splenomegaly , or palpable masses. No guarding. MUSCULOSKELETAL: Status post left BKA. Incision clean/dry/intact and well healing. NEUROLOGICAL: Awake and alert. Cranial nerves grossly intact. PSYCH: Normal mood and affect Procedures Left foot ankle incision and drainage with partial resection of the fifth metatarsal head Left BKA (Mary Manning MD R3) A/P Assessment and Plan 56-year-old male with a past medical history of complicated type 2 diabetes presented meeting sepsis criteria with diabetic left foot wound. 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 Requested physical therapy to work with the patient twice a day Discharge Planning Patient cleared from orthopedic standpoint. Patient cleared for SNF with PT however his Medicaid will not cover this. He needs continued physical therapy and is currently not safe for discharge. [facility] has evaluated the patient and did not accept him. The patient will be discharged once he is able to care for himself safely with outpatient physical therapy. (Mary Manning MD R3) Attending Attestation Patient seen and examined Case reviewed and discussed Agree with plan of care as discussed with me and documented in the resident note. (Nimisha Garcia MD) Problem List: (1) Diabetic foot ulcer Status: Chronic Plan: Status post BKA on 12/23/16 for diabetic foot ulcer with osteomyelitis. Antibiotic history is documented below. Patient cleared for rehabilitation, placement issues as above. Antibiotic history: Per infectious disease Augmentin 875 mg every 12 hours (started 01/02-01/06) Clindamycin IV (12/22-12/28) Zosyn also discontinued (12/22-12/26) Antibiotics per ID: Unasyn IV every 6 hours discontinued ( 12/26-01/01) (2) Skin rash Status: Resolved Plan: Resolved Likely was 2/2 antibiotic Augmentin (started 01/02-01/06) which is dc'd. Could also be related to pain medications (PO percocet was started 01/04-01/06). * Changed to Lortab, d/c Percocet * Hydrocortisone cream when necessary (3) Hypertension Status: Chronic Plan: BP better controlled with addition of lisinopril Amlodipine 10 mg daily HCTZ 25 mg daily (4) Hyperlipidemia Status: Acute Plan: Labs from 12/11 show elevated LDL of 120. 10 year ASCVD risk score is 12% - recommendation is for a high-intensity statin * Started atorvastatin (5) Anemia Status: Chronic Plan: Stable. Hematology consulted. Status post transfusion 4. Anemia workup unremarkable. (6) TAYLOR (acute kidney injury) Status: Acute Plan: Acute on chronic renal disease. Creatinine improved with IV fluid hydration. (7) Stage 1 decubitus ulcer in diabetic patient Status: Acute Plan: Notified 01/03 at 11 AM of stage I decubitus at the patient's sacrum. On breakdown of epidermis, Stage 2 ulcer. Wound care nursing consulted Offload areas of pressure per protocol Continue to work with physical therapy Soft mattress order Further orders per wound care (8) Diabetes Status: Chronic Plan: Hemoglobin A1c on 12/11 was 6.9 Sliding scale insulin while in hospital. Patient has had diarrhea on metformin, likely will need to be discontinued as an outpatient and put on glipizide (9) Social issues Status: Acute Plan: Case management consulted to assist with disposition. Patient has no one to help care for him at home and is currently not safe for discharge. Details as above. Consider transfer to [place]. 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 HIT positive is likely a false positive result Continue to monitor platelets Patient has been started on fondaparinux per hematology Medical history: Heparin discontinued Argatroban discontinued per hematology (12) FEN/DVT PPX/GI PPX Status: Acute Plan: Fluids: None Electrolytes: Will monitor and replace as needed Nutrition: Diabetic diet DVT Prophylaxis: Fondaparinux per orthopedic surgery. Okay from hematology to be on heparin prophylactically because of false positive HIT. GI Prophylaxis: Famotidine 10 mg IV every 12 hours (Mary Manning MD R3) Problem Qualifiers (1) Diabetic foot ulcer: Qualified Code: E11.621 - Diabetic ulcer of toe of left foot associated with type 2 diabetes mellitus, unspecified ulcer stage (2) Hypertension: Qualified Code: I10 - Essential hypertension (3) Hyperlipidemia: Qualified Code: E78.5 - Hyperlipidemia, unspecified hyperlipidemia type (4) Anemia: Qualified Code: D64.9 - Anemia, unspecified type (5) Diabetes: Mary Manning MD R3 Jan 22, 2017 08:52 Nimisha Garcia MD Jan 31, 2017 11:20
[2017-01-22] MEDS: MUPIROCIN 2% CREAM 15 GM TOPICAL SCH ×2 (09:00→21:00)
[2017-01-22] MEDS: HYDROCHLOROTHIAZIDE 25 MG TAB PO SCH (09:17)
[2017-01-22] MEDS: DOCUSATE SODIUM 50 MG/SENNA 8.6 MG TAB PO SCH ×2 (09:17→21:00)
[2017-01-22] MEDS: DOCUSATE SODIUM 100 MG CAP PO SCH ×2 (09:17→21:00)
[2017-01-22] MEDS: SODIUM CHLORIDE 0.9% FLUSH 10 ML FLUSH IV FLUSH SCH ×2 (09:17→21:06)
[2017-01-22] MEDS: LISINOPRIL 10 MG TAB PO SCH (09:17)
[2017-01-22] MEDS: CITALOPRAM HYDROBROMIDE 20 MG TAB PO SCH (09:17)
[2017-01-22] MEDS: MULTIVITAMINS/MINERALS THERAPEUTIC TAB PO SCH ×2 (09:17→21:07)
[2017-01-22] MEDS: LACTOBACILLUS ACIDOPHILUS 1 GM PACKET PO SCH ×3 (09:17→16:56)
[2017-01-22] MEDS: ARIPiprazole 5 MG TAB PO SCH (10:48)
[2017-01-22 12:00] VITALS: BP 110/66; PULSE 81; RESP 18; TEMP 98; O2SAT 98
[2017-01-22 16:00] VITALS: BP 122/78; PULSE 79; RESP 18; TEMP 96.5; O2SAT 98
[2017-01-22 20:00] VITALS: BP 131/74; PULSE 78; RESP 20; TEMP 96.4; O2SAT 99
[2017-01-22] MEDS: HYDROCORTISONE 2.5% CREAM 30 GM TOPICAL SCH (21:00)
[2017-01-22] MEDS: ATORVASTATIN 20 MG TAB PO SCH (21:07)
[2017-01-22] MEDS: FONDAPARINUX SODIUM 2.5 MG/0.5 ML SYRINGE SQ SCH (21:08)
[2017-01-22] MEDS: CHLORHEXIDINE GLUCONATE 2 % 1 PACK (2 CLOTHS) TOP SCH (21:09)
[2017-01-23] VITALS: BP 130/73; PULSE 77; RESP 20; TEMP 97.4; O2SAT 99
[2017-01-23] MEDS: INSULIN ASPART SUPPLEMENTAL SCALE SQ SCH ×4 (05:13→21:00)
[2017-01-23 08:00] VITALS: BP 126/66; PULSE 72; RESP 16; TEMP 97.2; O2SAT 97
--- NOTE | 2017-01-23 08:40 | HHI.FPPN ---
Subjective Remarks No change in clinical picture, patient is comfortable. No concerns or complaints. The patient is medically clear for discharge, awaiting placement. (Jonnathan Louise MD R2) Objective Vitals Vital Signs Date Time Temp Pulse Resp B/P Pulse Ox O2 Delivery O2 Flow Rate FiO2 01/23/17 00:00 97.4 77 20 130/73 99 01/22/17 20:00 96.4 78 20 131/74 99 01/22/17 16:00 96.5 79 18 122/78 98 01/22/17 12:00 98.0 81 18 110/66 98 I/O 01/22/17 01/22/17 01/22/17 01/23/17 01/23/17 01/23/17 07:00 15:00 23:00 07:00 15:00 23:00 Intake Total 340 ml 0 ml 240 ml 0 ml Output Total 800 ml 400 ml 1900 ml Balance -460 ml 0 ml -160 ml -1900 ml Intake Oral 340 ml 240 ml 0 ml IV Total 0 ml Output Urine Total 800 ml 400 ml 1900 ml # Bowel Movements 1 (Jonnathan Louise MD R2) Result Diagram: 01/19/17 0544 01/19/17 0514 Objective Remarks GENERAL: NAD. SKIN: Status post left BKA. Incision clean/dry/intact. Sutures removed. HEAD: Atraumatic. Normocephalic. CARDIOVASCULAR: RRR RESPIRATORY: Clear to auscultation. Breath sounds equal bilaterally. No wheezes , rales, or rhonchi. GASTROINTESTINAL: Abdomen soft, non-tender, nondistended. No hepato-splenomegaly , or palpable masses. No guarding. MUSCULOSKELETAL: Status post left BKA. Incision clean/dry/intact and well healing. NEUROLOGICAL: Awake and alert. Cranial nerves grossly intact. PSYCH: Normal mood and affect Procedures Left foot ankle incision and drainage with partial resection of the fifth metatarsal head Left BKA (Jonnathan Louise MD R2) A/P Assessment and Plan 56-year-old male with a past medical history of complicated type 2 diabetes presented meeting sepsis criteria with diabetic left foot wound. 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 Requested physical therapy to work with the patient twice a day Discharge Planning Patient cleared from orthopedic standpoint. Patient cleared for SNF with PT however his Medicaid will not cover this. He needs continued physical therapy and is currently not safe for discharge. [facility] has evaluated the patient and did not accept him. The patient will be discharged once he is able to care for himself safely with outpatient physical therapy. (Jonnathan Louise MD R2) Attending Attestation Patient seen and examined Case reviewed and discussed Agree with plan of care as discussed with me and documented in the resident note. (Nimisha Garcia MD) Problem List: (1) Diabetic foot ulcer Status: Chronic Plan: Status post BKA on 12/23/16 for diabetic foot ulcer with osteomyelitis. Antibiotic history is documented below. Patient cleared for rehabilitation, placement issues as above. Antibiotic history: Per infectious disease Augmentin 875 mg every 12 hours (started 01/02-01/06) Clindamycin IV (12/22-12/28) Zosyn also discontinued (12/22-12/26) Antibiotics per ID: Unasyn IV every 6 hours discontinued ( 12/26-01/01) (2) Skin rash Status: Resolved Plan: Resolved Likely was 2/2 antibiotic Augmentin (started 01/02-01/06) which is dc'd. Could also be related to pain medications (PO percocet was started 01/04-01/06). * Changed to Lortab, d/c Percocet * Hydrocortisone cream when necessary (3) Hypertension Status: Chronic Plan: BP better controlled with addition of lisinopril Amlodipine 10 mg daily HCTZ 25 mg daily (4) Hyperlipidemia Status: Acute Plan: Labs from 12/11 show elevated LDL of 120. 10 year ASCVD risk score is 12% - recommendation is for a high-intensity statin * Started atorvastatin (5) Anemia Status: Chronic Plan: Stable. Hematology consulted. Status post transfusion 4. Anemia workup unremarkable. (6) TAYLOR (acute kidney injury) Status: Acute Plan: Acute on chronic renal disease. Creatinine improved with IV fluid hydration. (7) Stage 1 decubitus ulcer in diabetic patient Status: Acute Plan: Notified 01/03 at 11 AM of stage I decubitus at the patient's sacrum. On breakdown of epidermis, Stage 2 ulcer. Wound care nursing consulted Offload areas of pressure per protocol Continue to work with physical therapy Soft mattress order Further orders per wound care (8) Diabetes Status: Chronic Plan: Hemoglobin A1c on 12/11 was 6.9 Sliding scale insulin while in hospital. Patient has had diarrhea on metformin, likely will need to be discontinued as an outpatient and put on glipizide (9) Social issues Status: Acute Plan: Case management consulted to assist with disposition. Patient has no one to help care for him at home and is currently not safe for discharge. Details as above. Consider transfer to [place]. 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 HIT positive is likely a false positive result Continue to monitor platelets Patient has been started on fondaparinux per hematology Medical history: Heparin discontinued Argatroban discontinued per hematology (12) FEN/DVT PPX/GI PPX Status: Acute Plan: Fluids: None Electrolytes: Will monitor and replace as needed Nutrition: Diabetic diet DVT Prophylaxis: Fondaparinux per orthopedic surgery. Okay from hematology to be on heparin prophylactically because of false positive HIT. GI Prophylaxis: Famotidine 10 mg IV every 12 hours (Jonnathan Louise MD R2) Problem Qualifiers (1) Diabetic foot ulcer: Qualified Code: E11.621 - Diabetic ulcer of toe of left foot associated with type 2 diabetes mellitus, unspecified ulcer stage (2) Hypertension: Qualified Code: I10 - Essential hypertension (3) Hyperlipidemia: Qualified Code: E78.5 - Hyperlipidemia, unspecified hyperlipidemia type (4) Anemia: Qualified Code: D64.9 - Anemia, unspecified type (5) Diabetes: Jonnathan Louise MD R2 Jan 23, 2017 08:40 Nimisha Garcia MD Jan 31, 2017 11:20
[2017-01-23] MEDS: MUPIROCIN 2% CREAM 15 GM TOPICAL SCH ×2 (09:00→21:00)
[2017-01-23] MEDS: DOCUSATE SODIUM 50 MG/SENNA 8.6 MG TAB PO SCH ×3 (09:00→21:00)
[2017-01-23] MEDS: DOCUSATE SODIUM 100 MG CAP PO SCH ×3 (09:00→21:00)
[2017-01-23] MEDS: ARIPiprazole 5 MG TAB PO SCH (10:20)
[2017-01-23] MEDS: HYDROCHLOROTHIAZIDE 25 MG TAB PO SCH (10:20)
[2017-01-23] MEDS: LISINOPRIL 10 MG TAB PO SCH (10:20)
[2017-01-23] MEDS: MULTIVITAMINS/MINERALS THERAPEUTIC TAB PO SCH ×2 (10:20→21:08)
[2017-01-23] MEDS: CITALOPRAM HYDROBROMIDE 20 MG TAB PO SCH (10:20)
[2017-01-23] MEDS: LACTOBACILLUS ACIDOPHILUS 1 GM PACKET PO SCH ×3 (10:21→18:31)
[2017-01-23] MEDS: SODIUM CHLORIDE 0.9% FLUSH 10 ML FLUSH IV FLUSH SCH ×2 (10:21→21:07)
[2017-01-23 12:00] VITALS: BP 122/66; PULSE 75; RESP 17; TEMP 96.6; O2SAT 99
[2017-01-23 16:00] VITALS: BP 119/62; PULSE 76; RESP 15; TEMP 96.4; O2SAT 98
[2017-01-23] MEDS: HYDROCORTISONE 2.5% CREAM 30 GM TOPICAL SCH (21:00)
[2017-01-23] MEDS: FONDAPARINUX SODIUM 2.5 MG/0.5 ML SYRINGE SQ SCH (21:08)
[2017-01-23] MEDS: ATORVASTATIN 20 MG TAB PO SCH (21:09)
[2017-01-23] MEDS: CHLORHEXIDINE GLUCONATE 2 % 1 PACK (2 CLOTHS) TOP SCH (21:09)
[2017-01-23 21:20] VITALS: BP 126/64; PULSE 68; RESP 18; TEMP 98.2; O2SAT 98
[2017-01-24 01:32] VITALS: BP 142/72; PULSE 81; RESP 18; TEMP 97.6; O2SAT 95
[2017-01-24] MEDS: INSULIN ASPART SUPPLEMENTAL SCALE SQ SCH ×4 (05:20→21:00)
[2017-01-24 08:00] VITALS: BP 138/68; PULSE 75; RESP 16; TEMP 97.4; O2SAT 98
[2017-01-24] MEDS: MUPIROCIN 2% CREAM 15 GM TOPICAL SCH ×2 (09:00→21:00)
[2017-01-24] MEDS: DOCUSATE SODIUM 100 MG CAP PO SCH (09:00)
[2017-01-24] MEDS: DOCUSATE SODIUM 50 MG/SENNA 8.6 MG TAB PO SCH (09:00)
--- NOTE | 2017-01-24 10:16 | HHI.FPPN ---
Subjective Remarks No acute events overnight. Afebrile, vital signs stable. Patient with no complaints this morning. Still awaiting placement. (Mary Manning MD R3) Objective Vitals Vital Signs Date Time Temp Pulse Resp B/P Pulse Ox O2 Delivery O2 Flow Rate FiO2 01/24/17 08:00 97.4 75 16 138/68 98 01/24/17 01:32 97.6 81 18 142/72 95 01/23/17 21:20 98.2 68 18 126/64 98 01/23/17 16:00 96.4 76 15 119/62 98 01/23/17 12:00 96.6 75 17 122/66 99 I/O 01/23/17 01/23/17 01/23/17 01/24/17 01/24/17 01/24/17 07:00 15:00 23:00 07:00 15:00 23:00 Intake Total 0 ml 575 ml Output Total 1900 ml 700 ml Balance -1900 ml 575 ml -700 ml Intake Oral 0 ml 575 ml Output Urine Total 1900 ml 700 ml # Bowel Movements 0 (Mary Manning MD R3) Objective Remarks GENERAL: NAD. SKIN: Status post left BKA. Incision clean/dry/intact. Sutures removed. HEAD: Atraumatic. Normocephalic. CARDIOVASCULAR: RRR RESPIRATORY: Clear to auscultation. Breath sounds equal bilaterally. No wheezes , rales, or rhonchi. GASTROINTESTINAL: Abdomen soft, non-tender, nondistended. No hepato-splenomegaly , or palpable masses. No guarding. MUSCULOSKELETAL: Status post left BKA. Incision clean/dry/intact and well healing. NEUROLOGICAL: Awake and alert. Cranial nerves grossly intact. PSYCH: Normal mood and affect Procedures Left foot ankle incision and drainage with partial resection of the fifth metatarsal head Left BKA (Mary Manning MD R3) A/P Assessment and Plan 56-year-old male with a past medical history of complicated type 2 diabetes presented meeting sepsis criteria with diabetic left foot wound. 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 Requested physical therapy to work with the patient twice a day Discharge Planning Patient cleared from orthopedic standpoint. Patient cleared for SNF with PT however his Medicaid will not cover this. He needs continued physical therapy and is currently not safe for discharge. [facility] has evaluated the patient and did not accept him. The patient will be discharged once he is able to care for himself safely with outpatient physical therapy. (Mary Manning MD R3) Attending Attestation Patient seen and examined Case reviewed and discussed Agree with plan of care as discussed with me and documented in the resident note. (Nimisha Garcia MD) Problem List: (1) Diabetic foot ulcer Status: Chronic Plan: Status post BKA on 12/23/16 for diabetic foot ulcer with osteomyelitis. Antibiotic history is documented below. Patient cleared for rehabilitation, placement issues as above. Antibiotic history: Per infectious disease Augmentin 875 mg every 12 hours (started 01/02-01/06) Clindamycin IV (12/22-12/28) Zosyn also discontinued (12/22-12/26) Antibiotics per ID: Unasyn IV every 6 hours discontinued ( 12/26-01/01) (2) Skin rash Status: Resolved Plan: Resolved Likely was 2/2 antibiotic Augmentin (started 01/02-01/06) which is dc'd. Could also be related to pain medications (PO percocet was started 01/04-01/06). * Changed to Lortab, d/c Percocet * Hydrocortisone cream when necessary (3) Hypertension Status: Chronic Plan: BP better controlled with addition of lisinopril Amlodipine 10 mg daily HCTZ 25 mg daily (4) Hyperlipidemia Status: Acute Plan: Labs from 12/11 show elevated LDL of 120. 10 year ASCVD risk score is 12% - recommendation is for a high-intensity statin * Started atorvastatin (5) Anemia Status: Chronic Plan: Stable. Hematology consulted. Status post transfusion 4. Anemia workup unremarkable. (6) TAYLOR (acute kidney injury) Status: Acute Plan: Acute on chronic renal disease. Creatinine improved with IV fluid hydration. (7) Stage 1 decubitus ulcer in diabetic patient Status: Acute Plan: Notified 01/03 at 11 AM of stage I decubitus at the patient's sacrum. On breakdown of epidermis, Stage 2 ulcer. Wound care nursing consulted Offload areas of pressure per protocol Continue to work with physical therapy Soft mattress order Further orders per wound care (8) Diabetes Status: Chronic Plan: Hemoglobin A1c on 12/11 was 6.9 Sliding scale insulin while in hospital. Patient has had diarrhea on metformin, likely will need to be discontinued as an outpatient and put on glipizide (9) Social issues Status: Acute Plan: Case management consulted to assist with disposition. Patient has no one to help care for him at home and is currently not safe for discharge. Details as above. Consider transfer to [place]. 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 HIT positive is likely a false positive result Continue to monitor platelets Patient has been started on fondaparinux per hematology Medical history: Heparin discontinued Argatroban discontinued per hematology (12) FEN/DVT PPX/GI PPX Status: Acute Plan: Fluids: None Electrolytes: Will monitor and replace as needed Nutrition: Diabetic diet DVT Prophylaxis: Fondaparinux per orthopedic surgery. Okay from hematology to be on heparin prophylactically because of false positive HIT. GI Prophylaxis: Famotidine 10 mg IV every 12 hours (Mary Manning MD R3) Problem Qualifiers (1) Diabetic foot ulcer: Qualified Code: E11.621 - Diabetic ulcer of toe of left foot associated with type 2 diabetes mellitus, unspecified ulcer stage (2) Hypertension: Qualified Code: I10 - Essential hypertension (3) Hyperlipidemia: Qualified Code: E78.5 - Hyperlipidemia, unspecified hyperlipidemia type (4) Anemia: Qualified Code: D64.9 - Anemia, unspecified type (5) Diabetes: Mary Manning MD R3 Jan 24, 2017 10:16 Nimisha Garcia MD Jan 31, 2017 11:19
[2017-01-24] MEDS: ARIPiprazole 5 MG TAB PO SCH (10:54)
[2017-01-24] MEDS: CITALOPRAM HYDROBROMIDE 20 MG TAB PO SCH (10:54)
[2017-01-24] MEDS: HYDROCHLOROTHIAZIDE 25 MG TAB PO SCH (10:54)
[2017-01-24] MEDS: MULTIVITAMINS/MINERALS THERAPEUTIC TAB PO SCH ×2 (10:54→21:50)
[2017-01-24] MEDS: LISINOPRIL 10 MG TAB PO SCH (10:54)
[2017-01-24] MEDS: SODIUM CHLORIDE 0.9% FLUSH 10 ML FLUSH IV FLUSH SCH ×2 (10:55→21:50)
[2017-01-24] MEDS: LACTOBACILLUS ACIDOPHILUS 1 GM PACKET PO SCH ×3 (10:59→18:11)
[2017-01-24 12:00] VITALS: BP 130/64; PULSE 77; RESP 17; TEMP 96.9; O2SAT 97
[2017-01-24] MEDS ORDERED: DOCUSATE SODIUM 50 MG/SENNA 8.6 MG TAB PO PRN (15:00)
[2017-01-24 16:00] VITALS: BP 129/65; PULSE 75; RESP 16; TEMP 96.6; O2SAT 99
[2017-01-24 20:00] VITALS: BP 124/64; PULSE 77; RESP 20; TEMP 97.3; O2SAT 99
[2017-01-24] MEDS: HYDROCORTISONE 2.5% CREAM 30 GM TOPICAL SCH (21:00)
[2017-01-24] MEDS: FONDAPARINUX SODIUM 2.5 MG/0.5 ML SYRINGE SQ SCH (21:49)
[2017-01-24] MEDS: ATORVASTATIN 20 MG TAB PO SCH (21:50)
[2017-01-25] VITALS: BP 132/62; PULSE 78; RESP 20; TEMP 97.3; O2SAT 100
[2017-01-25] MEDS: CHLORHEXIDINE GLUCONATE 2 % 1 PACK (2 CLOTHS) TOP SCH (03:03)
[2017-01-25] MEDS: INSULIN ASPART SUPPLEMENTAL SCALE SQ SCH ×4 (06:32→21:00)
[2017-01-25 08:00] VITALS: BP 120/64; PULSE 74; RESP 21; TEMP 96.2; O2SAT 98
[2017-01-25] MEDS: LISINOPRIL 10 MG TAB PO SCH (08:50)
[2017-01-25] MEDS: MULTIVITAMINS/MINERALS THERAPEUTIC TAB PO SCH ×2 (08:50→22:38)
[2017-01-25] MEDS: CITALOPRAM HYDROBROMIDE 20 MG TAB PO SCH (08:50)
[2017-01-25] MEDS: HYDROCHLOROTHIAZIDE 25 MG TAB PO SCH (08:50)
[2017-01-25] MEDS: ARIPiprazole 5 MG TAB PO SCH (08:50)
[2017-01-25] MEDS: SODIUM CHLORIDE 0.9% FLUSH 10 ML FLUSH IV FLUSH SCH ×2 (08:52→21:00)
[2017-01-25] MEDS: LACTOBACILLUS ACIDOPHILUS 1 GM PACKET PO SCH ×3 (08:52→17:29)
--- NOTE | 2017-01-25 11:54 | HHI.FPPN ---
Subjective Remarks No acute events overnight. Afebrile, vital signs stable. Patient with no complaints this morning. States he continues to persist. Physical therapy. Is unable to get around without his wheelchair. (Mary Manning MD R3) Objective Vitals Vital Signs Date Time Temp Pulse Resp B/P Pulse Ox O2 Delivery O2 Flow Rate FiO2 01/25/17 08:00 96.2 74 21 120/64 98 01/25/17 00:00 97.3 78 20 132/62 100 01/24/17 20:00 97.3 77 20 124/64 99 01/24/17 16:00 96.6 75 16 129/65 99 01/24/17 12:00 96.9 77 17 130/64 97 I/O 01/24/17 01/24/17 01/24/17 01/25/17 01/25/17 01/25/17 07:00 15:00 23:00 07:00 15:00 23:00 Intake Total 300 ml 240 ml 240 ml Output Total 1400 ml 350 ml 1700 ml Balance -1100 ml -110 ml -1460 ml Intake Oral 300 ml 240 ml 240 ml Output Urine Total 1400 ml 350 ml 1700 ml # Bowel Movements 1 0 0 (Mary Manning MD R3) Objective Remarks GENERAL: NAD. SKIN: Status post left BKA. Incision clean/dry/intact. Sutures removed. HEAD: Atraumatic. Normocephalic. CARDIOVASCULAR: RRR RESPIRATORY: Clear to auscultation. Breath sounds equal bilaterally. No wheezes , rales, or rhonchi. GASTROINTESTINAL: Abdomen soft, non-tender, nondistended. No hepato-splenomegaly , or palpable masses. No guarding. MUSCULOSKELETAL: Status post left BKA. Incision clean/dry/intact and well healing. NEUROLOGICAL: Awake and alert. Cranial nerves grossly intact. PSYCH: Normal mood and affect Procedures Left foot ankle incision and drainage with partial resection of the fifth metatarsal head Left BKA (Mary Manning MD R3) A/P Assessment and Plan 56-year-old male with a past medical history of complicated type 2 diabetes presented meeting sepsis criteria with diabetic left foot wound. 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 Requested physical therapy to work with the patient twice a day Discharge Planning Patient cleared from orthopedic standpoint. Patient cleared for SNF with PT however his Medicaid will not cover this. He needs continued physical therapy and is currently not safe for discharge. [facility] has evaluated the patient and did not accept him. The patient will be discharged once he is able to care for himself safely with outpatient physical therapy. (Mary Manning MD R3) Attending Attestation Patient seen and examined. Case reviewed and discussed Agree with plan of care as discussed with me and documented in the resident note. (Nimisha Garcia MD) Problem List: (1) Diabetic foot ulcer Status: Chronic Plan: Status post BKA on 12/23/16 for diabetic foot ulcer with osteomyelitis. Antibiotic history is documented below. Patient cleared for rehabilitation, placement issues as above. Antibiotic history: Per infectious disease Augmentin 875 mg every 12 hours (started 01/02-01/06) Clindamycin IV (12/22-12/28) Zosyn also discontinued (12/22-12/26) Antibiotics per ID: Unasyn IV every 6 hours discontinued ( 12/26-01/01) (2) Skin rash Status: Acute Plan: Resolved Likely was 2/2 antibiotic Augmentin (started 01/02-01/06) which is dc'd. Could also be related to pain medications (PO percocet was started 01/04-01/06). * Changed to Lortab, d/c Percocet * Hydrocortisone cream when necessary (3) Hypertension Status: Chronic Plan: BP better controlled with addition of lisinopril Amlodipine 10 mg daily HCTZ 25 mg daily (4) Hyperlipidemia Status: Acute Plan: Labs from 12/11 show elevated LDL of 120. 10 year ASCVD risk score is 12% - recommendation is for a high-intensity statin * Started atorvastatin (5) Anemia Status: Chronic Plan: Stable. Hematology consulted. Status post transfusion 4. Anemia workup unremarkable. (6) TAYLOR (acute kidney injury) Status: Resolved Plan: Acute on chronic renal disease. Creatinine improved with IV fluid hydration. (7) Stage 1 decubitus ulcer in diabetic patient Status: Acute Plan: Notified 01/03 at 11 AM of stage I decubitus at the patient's sacrum. On breakdown of epidermis, Stage 2 ulcer. Wound care nursing consulted Offload areas of pressure per protocol Continue to work with physical therapy Soft mattress order Further orders per wound care (8) Diabetes Status: Chronic Plan: Hemoglobin A1c on 12/11 was 6.9 Sliding scale insulin while in hospital. Patient has had diarrhea on metformin, likely will need to be discontinued as an outpatient and put on glipizide (9) Social issues Status: Acute Plan: Case management consulted to assist with disposition. Patient has no one to help care for him at home and is currently not safe for discharge. Details as above. Consider transfer to [place]. 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 HIT positive is likely a false positive result Continue to monitor platelets Patient has been started on fondaparinux per hematology Medical history: Heparin discontinued Argatroban discontinued per hematology (12) FEN/DVT PPX/GI PPX Status: Acute Plan: Fluids: None Electrolytes: Will monitor and replace as needed Nutrition: Diabetic diet DVT Prophylaxis: Fondaparinux per orthopedic surgery. Okay from hematology to be on heparin prophylactically because of false positive HIT. GI Prophylaxis: Famotidine 10 mg IV every 12 hours (Mary Manning MD R3) Problem Qualifiers (1) Diabetic foot ulcer: Qualified Code: E11.621 - Diabetic ulcer of toe of left foot associated with type 2 diabetes mellitus, unspecified ulcer stage (2) Hypertension: Qualified Code: I10 - Essential hypertension (3) Hyperlipidemia: Qualified Code: E78.5 - Hyperlipidemia, unspecified hyperlipidemia type (4) Anemia: Qualified Code: D64.9 - Anemia, unspecified type (5) Diabetes: Mary Manning MD R3 Jan 25, 2017 11:54 Nimisha Garcia MD Jan 25, 2017 13:12
[2017-01-25 12:00] VITALS: BP 119/61; PULSE 80; RESP 14; TEMP 95.1; O2SAT 100
[2017-01-25] MEDS: MUPIROCIN 2% CREAM 15 GM TOPICAL SCH ×2 (12:14→21:00)
[2017-01-25 16:00] VITALS: BP 123/63; PULSE 73; RESP 16; TEMP 96; O2SAT 99
[2017-01-25 20:00] VITALS: BP 119/64; PULSE 78; RESP 22; TEMP 96.9; O2SAT 97
[2017-01-25] MEDS: HYDROCORTISONE 2.5% CREAM 30 GM TOPICAL SCH (21:00)
[2017-01-25] MEDS: ATORVASTATIN 20 MG TAB PO SCH (22:38)
[2017-01-25] MEDS: FONDAPARINUX SODIUM 2.5 MG/0.5 ML SYRINGE SQ SCH (22:38)
[2017-01-26] VITALS: BP 122/66; PULSE 74; RESP 20; TEMP 97.7; O2SAT 99
[2017-01-26] MEDS: CHLORHEXIDINE GLUCONATE 2 % 1 PACK (2 CLOTHS) TOP SCH (04:00)
[2017-01-26] MEDS: INSULIN ASPART SUPPLEMENTAL SCALE SQ SCH ×4 (06:36→21:00)
[2017-01-26 08:00] VITALS: BP 132/62; PULSE 74; RESP 18; TEMP 96.7; O2SAT 100
[2017-01-26] MEDS: HYDROCHLOROTHIAZIDE 25 MG TAB PO SCH (08:12)
[2017-01-26] MEDS: MULTIVITAMINS/MINERALS THERAPEUTIC TAB PO SCH ×2 (08:12→22:17)
[2017-01-26] MEDS: LISINOPRIL 10 MG TAB PO SCH (08:12)
[2017-01-26] MEDS: LACTOBACILLUS ACIDOPHILUS 1 GM PACKET PO SCH ×3 (08:12→17:29)
[2017-01-26] MEDS: CITALOPRAM HYDROBROMIDE 20 MG TAB PO SCH (08:12)
[2017-01-26] MEDS: ARIPiprazole 5 MG TAB PO SCH (08:12)
[2017-01-26] MEDS: MUPIROCIN 2% CREAM 15 GM TOPICAL SCH ×2 (08:13→21:00)
[2017-01-26] MEDS: SODIUM CHLORIDE 0.9% FLUSH 10 ML FLUSH IV FLUSH SCH ×2 (08:13→21:00)
[2017-01-26 12:00] VITALS: BP 81/49; PULSE 82; RESP 18; TEMP 97.9; O2SAT 100
--- NOTE | 2017-01-26 12:09 | HHI.FPPN ---
Subjective Remarks No acute events overnight. Afebrile, vital signs stable. Patient with no complaints this morning. States he continues to produce rate and physical therapy. Objective Vitals Vital Signs Date Time Temp Pulse Resp B/P Pulse Ox O2 Delivery O2 Flow Rate FiO2 01/26/17 08:00 96.7 74 18 132/62 100 01/26/17 00:00 97.7 74 20 122/66 99 01/25/17 20:00 96.9 78 22 119/64 97 01/25/17 16:00 96.0 73 16 123/63 99 I/O 01/25/17 01/25/17 01/25/17 01/26/17 01/26/17 01/26/17 07:00 15:00 23:00 07:00 15:00 23:00 Intake Total 240 ml 480 ml 480 ml 320 ml Output Total 1700 ml 700 ml 700 ml 750 ml Balance -1460 ml -220 ml -220 ml -430 ml Intake Oral 240 ml 480 ml 480 ml 320 ml IV Total 0 ml Output Urine Total 1700 ml 700 ml 700 ml 750 ml # Bowel Movements 0 1 0 0 Objective Remarks GENERAL: NAD. SKIN: Status post left BKA. Incision clean/dry/intact. Sutures removed. HEAD: Atraumatic. Normocephalic. CARDIOVASCULAR: RRR RESPIRATORY: Clear to auscultation. Breath sounds equal bilaterally. No wheezes , rales, or rhonchi. GASTROINTESTINAL: Abdomen soft, non-tender, nondistended. No hepato-splenomegaly , or palpable masses. No guarding. MUSCULOSKELETAL: Status post left BKA. Incision clean/dry/intact and well healing. NEUROLOGICAL: Awake and alert. Cranial nerves grossly intact. PSYCH: Normal mood and affect Procedures Left foot ankle incision and drainage with partial resection of the fifth metatarsal head Left BKA A/P Assessment and Plan 56-year-old male with a past medical history of complicated type 2 diabetes presented meeting sepsis criteria with diabetic left foot wound. 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 Requested physical therapy to work with the patient twice a day Discharge Planning Patient cleared from orthopedic standpoint. Patient cleared for SNF with PT however his Medicaid will not cover this. He needs continued physical therapy and is currently not safe for discharge. [facility] has evaluated the patient and did not accept him. The patient will be discharged once he is able to care for himself safely with outpatient physical therapy. Problem List: (1) Diabetic foot ulcer Status: Chronic Plan: Status post BKA on 12/23/16 for diabetic foot ulcer with osteomyelitis. Antibiotic history is documented below. Patient cleared for rehabilitation, placement issues as above. Antibiotic history: Per infectious disease Augmentin 875 mg every 12 hours (started 01/02-01/06) Clindamycin IV (12/22-12/28) Zosyn also discontinued (12/22-12/26) Antibiotics per ID: Unasyn IV every 6 hours discontinued ( 12/26-01/01) (2) Skin rash Status: Resolved Plan: Resolved Likely was / antibiotic Augmentin (started 01/02-01/06) which is dc'd. Could also be related to pain medications (PO percocet was started 01/04-01/06). * Changed to Lortab, d/c Percocet * Hydrocortisone cream when necessary (3) Hypertension Status: Chronic Plan: BP better controlled with addition of lisinopril Amlodipine 10 mg daily HCTZ 25 mg daily (4) Hyperlipidemia Status: Acute Plan: Labs from 12/11 show elevated LDL of 120. 10 year ASCVD risk score is 12% - recommendation is for a high-intensity statin * Started atorvastatin (5) Anemia Status: Chronic Plan: Stable. Hematology consulted. Status post transfusion 4. Anemia workup unremarkable. (6) TAYLOR (acute kidney injury) Status: Resolved Plan: Acute on chronic renal disease. Creatinine improved with IV fluid hydration. (7) Stage 1 decubitus ulcer in diabetic patient Status: Acute Plan: Notified 01/03 at 11 AM of stage I decubitus at the patient's sacrum. On breakdown of epidermis, Stage 2 ulcer. Wound care nursing consulted Offload areas of pressure per protocol Continue to work with physical therapy Soft mattress order Further orders per wound care (8) Diabetes Status: Chronic Plan: Hemoglobin A1c on 12/11 was 6.9 Sliding scale insulin while in hospital. Patient has had diarrhea on metformin, likely will need to be discontinued as an outpatient and put on glipizide (9) Social issues Status: Acute Plan: Case management consulted to assist with disposition. Patient has no one to help care for him at home and is currently not safe for discharge. Details as above. Consider transfer to [place]. 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 HIT positive is likely a false positive result Continue to monitor platelets Patient has been started on fondaparinux per hematology Medical history: Heparin discontinued Argatroban discontinued per hematology (12) FEN/DVT PPX/GI PPX Status: Acute Plan: Fluids: None Electrolytes: Will monitor and replace as needed Nutrition: Diabetic diet DVT Prophylaxis: Fondaparinux per orthopedic surgery. Okay from hematology to be on heparin prophylactically because of false positive HIT. GI Prophylaxis: Famotidine 10 mg IV every 12 hours Problem Qualifiers (1) Diabetic foot ulcer: Qualified Code: E11.621 - Diabetic ulcer of toe of left foot associated with type 2 diabetes mellitus, unspecified ulcer stage (2) Hypertension: Qualified Code: I10 - Essential hypertension (3) Hyperlipidemia: Qualified Code: E78.5 - Hyperlipidemia, unspecified hyperlipidemia type (4) Anemia: Qualified Code: D64.9 - Anemia, unspecified type (5) Diabetes: Mary Manning MD R3 Jan 26, 2017 12:09
[2017-01-26 13:29] VITALS: BP 110/59
[2017-01-26 16:00] VITALS: BP 128/66; PULSE 68; RESP 18; TEMP 97; O2SAT 95
[2017-01-26 20:00] VITALS: BP 126/65; PULSE 78; RESP 17; TEMP 97.1; O2SAT 100
[2017-01-26] MEDS: HYDROCORTISONE 2.5% CREAM 30 GM TOPICAL SCH (21:00)
[2017-01-26] MEDS: FONDAPARINUX SODIUM 2.5 MG/0.5 ML SYRINGE SQ SCH (22:17)
[2017-01-26] MEDS: ATORVASTATIN 20 MG TAB PO SCH (22:17)
[2017-01-27] VITALS: BP 113/62; PULSE 74; RESP 17; TEMP 96.7; O2SAT 100
[2017-01-27] MEDS: CHLORHEXIDINE GLUCONATE 2 % 1 PACK (2 CLOTHS) TOP SCH (04:00)
[2017-01-27] MEDS: INSULIN ASPART SUPPLEMENTAL SCALE SQ SCH ×4 (05:44→20:22)
[2017-01-27 08:00] VITALS: BP 142/68; PULSE 78; RESP 16; TEMP 96.2; O2SAT 99
[2017-01-27] MEDS: MULTIVITAMINS/MINERALS THERAPEUTIC TAB PO SCH ×2 (08:16→20:22)
[2017-01-27] MEDS: LACTOBACILLUS ACIDOPHILUS 1 GM PACKET PO SCH ×3 (08:16→17:52)
[2017-01-27] MEDS: LISINOPRIL 10 MG TAB PO SCH (08:16)
[2017-01-27] MEDS: SODIUM CHLORIDE 0.9% FLUSH 10 ML FLUSH IV FLUSH SCH ×2 (08:17→20:22)
[2017-01-27] MEDS: CITALOPRAM HYDROBROMIDE 20 MG TAB PO SCH (08:17)
[2017-01-27] MEDS: HYDROCHLOROTHIAZIDE 25 MG TAB PO SCH (08:17)
[2017-01-27] MEDS: ARIPiprazole 5 MG TAB PO SCH (08:17)
[2017-01-27] MEDS: MUPIROCIN 2% CREAM 15 GM TOPICAL SCH ×2 (08:18→20:22)
--- NOTE | 2017-01-27 11:50 | HHI.FPPN ---
Subjective Remarks No acute events overnight. Afebrile, vital signs stable. Patient with no complaints this morning. Continues to work with physical therapy. (Mary Manning MD R3) Objective Vitals Vital Signs Date Time Temp Pulse Resp B/P Pulse Ox O2 Delivery O2 Flow Rate FiO2 01/27/17 08:00 96.2 78 16 142/68 99 01/27/17 00:00 96.7 74 17 113/62 100 01/26/17 20:00 97.1 78 17 126/65 100 01/26/17 16:00 97.0 68 18 128/66 95 01/26/17 13:29 110/59 01/26/17 12:00 97.9 82 18 81/49 100 I/O 01/26/17 01/26/17 01/26/17 01/27/17 01/27/17 01/27/17 07:00 15:00 23:00 07:00 15:00 23:00 Intake Total 320 ml 480 ml 240 ml Output Total 750 ml 1200 ml 850 ml Balance -430 ml -720 ml -610 ml Intake Oral 320 ml 480 ml 240 ml IV Total 0 ml 0 ml Output Urine Total 750 ml 1200 ml 850 ml # Voids 4 # Bowel Movements 0 (Mary Manning MD R3) Objective Remarks GENERAL: NAD. SKIN: Status post left BKA. Incision clean/dry/intact. Sutures removed. HEAD: Atraumatic. Normocephalic. CARDIOVASCULAR: RRR RESPIRATORY: Clear to auscultation. Breath sounds equal bilaterally. No wheezes , rales, or rhonchi. GASTROINTESTINAL: Abdomen soft, non-tender, nondistended. No hepato-splenomegaly , or palpable masses. No guarding. MUSCULOSKELETAL: Status post left BKA. Incision clean/dry/intact and well healing. NEUROLOGICAL: Awake and alert. Cranial nerves grossly intact. PSYCH: Normal mood and affect Procedures Left foot ankle incision and drainage with partial resection of the fifth metatarsal head Left BKA (Mary Manning MD R3) A/P Assessment and Plan 56-year-old male with a past medical history of complicated type 2 diabetes presented meeting sepsis criteria with diabetic left foot wound. 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 Requested physical therapy to work with the patient twice a day Discharge Planning Patient cleared from orthopedic standpoint. Patient cleared for SNF with PT however his Medicaid will not cover this. He needs continued physical therapy and is currently not safe for discharge. [facility] has evaluated the patient and did not accept him. The patient will be discharged once he is able to care for himself safely with outpatient physical therapy. (Mary Manning MD R3) Attending Attestation Patient seen and examined. Case reviewed and discussed Agree with plan of care as discussed with me and documented in the resident note. (Nimisha Garcia MD) Problem List: (1) Diabetic foot ulcer Status: Chronic Plan: Status post BKA on 12/23/16 for diabetic foot ulcer with osteomyelitis. Antibiotic history is documented below. Patient cleared for rehabilitation, placement issues as above. Antibiotic history: Per infectious disease Augmentin 875 mg every 12 hours (started 01/02-01/06) Clindamycin IV (12/22-12/28) Zosyn also discontinued (12/22-12/26) Antibiotics per ID: Unasyn IV every 6 hours discontinued ( 12/26-01/01) (2) Skin rash Status: Resolved Plan: Resolved Likely was 2/2 antibiotic Augmentin (started 01/02-01/06) which is dc'd. Could also be related to pain medications (PO percocet was started 01/04-01/06). * Changed to Lortab, d/c Percocet * Hydrocortisone cream when necessary (3) Hypertension Status: Chronic Plan: BP better controlled with addition of lisinopril Amlodipine 10 mg daily HCTZ 25 mg daily (4) Hyperlipidemia Status: Acute Plan: Labs from 12/11 show elevated LDL of 120. 10 year ASCVD risk score is 12% - recommendation is for a high-intensity statin * Started atorvastatin (5) Anemia Status: Chronic Plan: Stable. Hematology consulted. Status post transfusion 4. Anemia workup unremarkable. (6) TAYLOR (acute kidney injury) Status: Resolved Plan: Acute on chronic renal disease. Creatinine improved with IV fluid hydration. (7) Stage 1 decubitus ulcer in diabetic patient Status: Acute Plan: Notified 01/03 at 11 AM of stage I decubitus at the patient's sacrum. On breakdown of epidermis, Stage 2 ulcer. Wound care nursing consulted Offload areas of pressure per protocol Continue to work with physical therapy Soft mattress order Further orders per wound care (8) Diabetes Status: Chronic Plan: Hemoglobin A1c on 12/11 was 6.9 Sliding scale insulin while in hospital. Patient has had diarrhea on metformin, likely will need to be discontinued as an outpatient and put on glipizide (9) Social issues Status: Acute Plan: Case management consulted to assist with disposition. Patient has no one to help care for him at home and is currently not safe for discharge. Details as above. Consider transfer to [place]. 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 HIT positive is likely a false positive result Continue to monitor platelets Patient has been started on fondaparinux per hematology Medical history: Heparin discontinued Argatroban discontinued per hematology (12) FEN/DVT PPX/GI PPX Status: Acute Plan: Fluids: None Electrolytes: Will monitor and replace as needed Nutrition: Diabetic diet DVT Prophylaxis: Fondaparinux per orthopedic surgery. Okay from hematology to be on heparin prophylactically because of false positive HIT. GI Prophylaxis: Famotidine 10 mg IV every 12 hours (Mary Manning MD R3) Problem Qualifiers (1) Diabetic foot ulcer: Qualified Code: E11.621 - Diabetic ulcer of toe of left foot associated with type 2 diabetes mellitus, unspecified ulcer stage (2) Hypertension: Qualified Code: I10 - Essential hypertension (3) Hyperlipidemia: Qualified Code: E78.5 - Hyperlipidemia, unspecified hyperlipidemia type (4) Anemia: Qualified Code: D64.9 - Anemia, unspecified type (5) Diabetes: Mary Manning MD R3 Jan 27, 2017 11:50 Nimisha Garcia MD Jan 28, 2017 07:59
[2017-01-27 12:00] VITALS: BP 92/53; PULSE 74; RESP 20; TEMP 95.4; O2SAT 97
[2017-01-27 16:00] VITALS: BP 118/63; PULSE 77; RESP 17; TEMP 96.5; O2SAT 97
[2017-01-27 20:00] VITALS: BP 126/64; PULSE 76; RESP 17; TEMP 96.3; O2SAT 99
[2017-01-27] MEDS: ATORVASTATIN 20 MG TAB PO SCH (20:22)
[2017-01-27] MEDS: FONDAPARINUX SODIUM 2.5 MG/0.5 ML SYRINGE SQ SCH (20:22)
[2017-01-27] MEDS: HYDROCORTISONE 2.5% CREAM 30 GM TOPICAL SCH (20:23)
[2017-01-28] VITALS: BP 118/65; PULSE 79; RESP 17; TEMP 96.4; O2SAT 99
[2017-01-28] MEDS: CHLORHEXIDINE GLUCONATE 2 % 1 PACK (2 CLOTHS) TOP SCH (04:00)
[2017-01-28] MEDS: INSULIN ASPART SUPPLEMENTAL SCALE SQ SCH ×4 (06:11→20:00)
[2017-01-28 08:00] VITALS: BP 120/65; PULSE 75; RESP 18; TEMP 97.6; O2SAT 98
[2017-01-28] MEDS: LACTOBACILLUS ACIDOPHILUS 1 GM PACKET PO SCH ×3 (09:00→17:46)
[2017-01-28] MEDS: MUPIROCIN 2% CREAM 15 GM TOPICAL SCH ×2 (09:00→20:00)
[2017-01-28] MEDS: ARIPiprazole 5 MG TAB PO SCH (09:16)
[2017-01-28] MEDS: HYDROCHLOROTHIAZIDE 25 MG TAB PO SCH (09:17)
[2017-01-28] MEDS: MULTIVITAMINS/MINERALS THERAPEUTIC TAB PO SCH ×2 (09:17→20:00)
[2017-01-28] MEDS: LISINOPRIL 10 MG TAB PO SCH (09:17)
[2017-01-28] MEDS: CITALOPRAM HYDROBROMIDE 20 MG TAB PO SCH (09:18)
[2017-01-28] MEDS: SODIUM CHLORIDE 0.9% FLUSH 10 ML FLUSH IV FLUSH SCH ×2 (09:18→20:00)
--- NOTE | 2017-01-28 10:40 | HHI.FPPN ---
Subjective Remarks Doing well. Working with PT daily and gaining strength. No concerns or questions. Ready for in-patient rehab placement. (Jonnathan Louise MD R2) Objective Vitals Vital Signs Date Time Temp Pulse Resp B/P Pulse Ox O2 Delivery O2 Flow Rate FiO2 01/28/17 08:00 97.6 75 18 120/65 98 01/28/17 00:00 96.4 79 17 118/65 99 01/27/17 20:00 96.3 76 17 126/64 99 01/27/17 16:00 96.5 77 17 118/63 97 01/27/17 12:00 95.4 74 20 92/53 97 I/O 01/27/17 01/27/17 01/27/17 01/28/17 01/28/17 01/28/17 07:00 15:00 23:00 07:00 15:00 23:00 Intake Total 240 ml 720 ml 240 ml 240 ml Output Total 850 ml 1300 ml 200 ml 1200 ml Balance -610 ml -580 ml 40 ml -960 ml Intake Oral 240 ml 720 ml 240 ml 240 ml IV Total 0 ml Output Urine Total 850 ml 1300 ml 200 ml 1200 ml # Bowel Movements 2 (Jonnathan Louise MD R2) Objective Remarks GENERAL: NAD. SKIN: Status post left BKA. Incision clean/dry/intact. Sutures removed. HEAD: Atraumatic. Normocephalic. CARDIOVASCULAR: RRR RESPIRATORY: Clear to auscultation. Breath sounds equal bilaterally. No wheezes , rales, or rhonchi. GASTROINTESTINAL: Abdomen soft, non-tender, nondistended. No hepato-splenomegaly , or palpable masses. No guarding. MUSCULOSKELETAL: Status post left BKA. Incision clean/dry/intact and well healing. NEUROLOGICAL: Awake and alert. Cranial nerves grossly intact. PSYCH: Normal mood and affect Procedures Left foot ankle incision and drainage with partial resection of the fifth metatarsal head Left BKA (Jonnathan Louise MD R2) A/P Assessment and Plan 56-year-old male with a past medical history of complicated type 2 diabetes presented meeting sepsis criteria with diabetic left foot wound. 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 Requested physical therapy to work with the patient twice a day Discharge Planning Patient cleared from orthopedic standpoint. Patient cleared for SNF with PT however his Medicaid will not cover this. He needs continued physical therapy and is currently not safe for discharge. [facility] has evaluated the patient and did not accept him. The patient will be discharged once he is able to care for himself safely with outpatient physical therapy. (Jonnathan Louise MD R2) Attending Attestation Patient seen and examined Case reviewed and discussed Agree with plan of care as discussed with me and documented in the resident note. (Nimisha Garcia MD) Problem List: (1) Diabetic foot ulcer Status: Chronic Plan: Status post BKA on 12/23/16 for diabetic foot ulcer with osteomyelitis. Antibiotic history is documented below. Patient cleared for rehabilitation, placement issues as above. Antibiotic history: Per infectious disease Augmentin 875 mg every 12 hours (started 01/02-01/06) Clindamycin IV (12/22-12/28) Zosyn also discontinued (12/22-12/26) Antibiotics per ID: Unasyn IV every 6 hours discontinued ( 12/26-01/01) (2) Skin rash Status: Resolved Plan: Resolved Likely was 2/2 antibiotic Augmentin (started 01/02-01/06) which is dc'd. Could also be related to pain medications (PO percocet was started 01/04-01/06). * Changed to Lortab, d/c Percocet * Hydrocortisone cream when necessary (3) Hypertension Status: Chronic Plan: BP better controlled with addition of lisinopril Amlodipine 10 mg daily HCTZ 25 mg daily (4) Hyperlipidemia Status: Acute Plan: Labs from 12/11 show elevated LDL of 120. 10 year ASCVD risk score is 12% - recommendation is for a high-intensity statin * Started atorvastatin (5) Anemia Status: Chronic Plan: Stable. Hematology consulted. Status post transfusion 4. Anemia workup unremarkable. (6) TAYLOR (acute kidney injury) Status: Acute Plan: Acute on chronic renal disease. Creatinine improved with IV fluid hydration. (7) Stage 1 decubitus ulcer in diabetic patient Status: Acute Plan: Notified 01/03 at 11 AM of stage I decubitus at the patient's sacrum. On breakdown of epidermis, Stage 2 ulcer. Wound care nursing consulted Offload areas of pressure per protocol Continue to work with physical therapy Soft mattress order Further orders per wound care (8) Diabetes Status: Chronic Plan: Hemoglobin A1c on 12/11 was 6.9 Sliding scale insulin while in hospital. Patient has had diarrhea on metformin, likely will need to be discontinued as an outpatient and put on glipizide (9) Social issues Status: Acute Plan: Case management consulted to assist with disposition. Patient has no one to help care for him at home and is currently not safe for discharge. Details as above. Consider transfer to [place]. 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 HIT positive is likely a false positive result Continue to monitor platelets Patient has been started on fondaparinux per hematology Medical history: Heparin discontinued Argatroban discontinued per hematology (12) FEN/DVT PPX/GI PPX Status: Acute Plan: Fluids: None Electrolytes: Will monitor and replace as needed Nutrition: Diabetic diet DVT Prophylaxis: Fondaparinux per orthopedic surgery. Okay from hematology to be on heparin prophylactically because of false positive HIT. GI Prophylaxis: Famotidine 10 mg IV every 12 hours (Jonnathan Louise MD R2) Problem Qualifiers (1) Diabetic foot ulcer: Qualified Code: E11.621 - Diabetic ulcer of toe of left foot associated with type 2 diabetes mellitus, unspecified ulcer stage (2) Hypertension: Qualified Code: I10 - Essential hypertension (3) Hyperlipidemia: Qualified Code: E78.5 - Hyperlipidemia, unspecified hyperlipidemia type (4) Anemia: Qualified Code: D64.9 - Anemia, unspecified type (5) Diabetes: Jonnathan Louise MD R2 Jan 28, 2017 10:40 Nimisha Garcia MD Jan 31, 2017 11:20
[2017-01-28 12:00] VITALS: BP 118/60; PULSE 76; RESP 16; TEMP 97.8; O2SAT 99
[2017-01-28 16:00] VITALS: BP_SYST 78; BP_SYST 80; BP_DIAS 48; PULSE 80; RESP 16; TEMP 96.5; O2SAT 98
[2017-01-28] MEDS ORDERED: SODIUM CHLORID 0.9% 500 ML INJ 500 ML IV ONE (17:15)
[2017-01-28] MEDS ORDERED: SODIUM CHLORID 0.9% 500 ML INJ 500 ML IV PRN (17:15)
[2017-01-28 18:10] VITALS: BP 126/70; PULSE 65
[2017-01-28 20:00] VITALS: BP 124/60; PULSE 77; RESP 22; TEMP 97.8; O2SAT 100
[2017-01-28] MEDS: FONDAPARINUX SODIUM 2.5 MG/0.5 ML SYRINGE SQ SCH (20:00)
[2017-01-28] MEDS: ATORVASTATIN 20 MG TAB PO SCH (20:00)
[2017-01-28] MEDS: HYDROCORTISONE 2.5% CREAM 30 GM TOPICAL SCH (20:01)
[2017-01-29] VITALS: BP 114/59; PULSE 80; RESP 20; TEMP 97.6; O2SAT 98
[2017-01-29] MEDS: CHLORHEXIDINE GLUCONATE 2 % 1 PACK (2 CLOTHS) TOP SCH ×2 (03:08→21:02)
[2017-01-29] MEDS: INSULIN ASPART SUPPLEMENTAL SCALE SQ SCH ×4 (06:00→21:00)
[2017-01-29 06:28] LABS: AUTOMATED NEUTROPHIL # 3.5 TH/MM3 (1.8-7.7); BASOPHIL % 0.5 % (0.0-2.0); EOSINOPHIL # 0.5 TH/MM3 (0-0.4); HEMATOCRIT 32.6 % (39.0-51.0); HEMO FLAGS DIFF FINAL; LYMPH % 31.9 % (9.0-44.0); LYMPHOCYTE # 2.3 TH/MM3 (1.0-4.8); MEAN CELL VOLUME 91.4 FL (80.0-100.0); MEAN CORPUSCULAR HEMOGLOBIN 29.6 PG (27.0-34.0); MEAN CORPUSCULAR HGB CONC 32.4 % (32.0-36.0); MONO % 12.5 % (0.0-8.0); NEUT % 48.1 % (16.0-70.0); PLATELET COUNT 122 TH/MM3 (150-450); RED BLOOD COUNT 3.57 MIL/MM3 (4.50-5.90); RED CELL DISTRIBUTION WIDTH 18.3 % (11.6-17.2); WHITE BLOOD COUNT 7.3 TH/MM3 (4.0-11.0)
[2017-01-29 06:55] LABS: BICARBONATE 15.9 MEQ/L (21.0-32.0); POTASSIUM 5.7 MEQ/L (3.5-5.1)
[2017-01-29 08:00] VITALS: BP 119/63; PULSE 73; RESP 16; TEMP 97.5; O2SAT 100
[2017-01-29] MEDS ORDERED: SODIUM CHLOR 0.9% 1000 ML INJ 1,000 ML IV ONE (09:15)
[2017-01-29] MEDS: LISINOPRIL 10 MG TAB PO SCH (09:43)
[2017-01-29] MEDS: SODIUM CHLORIDE 0.9% FLUSH 10 ML FLUSH IV FLUSH SCH ×2 (09:43→20:59)
[2017-01-29] MEDS: ARIPiprazole 5 MG TAB PO SCH (09:43)
[2017-01-29] MEDS: CITALOPRAM HYDROBROMIDE 20 MG TAB PO SCH (09:43)
[2017-01-29] MEDS: MULTIVITAMINS/MINERALS THERAPEUTIC TAB PO SCH ×2 (09:43→21:00)
[2017-01-29] MEDS: LACTOBACILLUS ACIDOPHILUS 1 GM PACKET PO SCH ×3 (09:45→16:59)
[2017-01-29] MEDS: MUPIROCIN 2% CREAM 15 GM TOPICAL SCH ×2 (09:46→21:00)
--- NOTE | 2017-01-29 10:16 | HHI.FPPN ---
Subjective Remarks Patient hypotensive overnight to 80/48. Per patient, this was after he had spent significant time in his wheelchair wheeling around the hallways and was transferring back to bed. He states it is not uncommon for his blood pressure to drop during this transfer. Additionally, the patient's potassium was found to be 5.7 on BMP this morning. He was given 500 cc bolus overnight. (Mary Manning MD R3) Objective Vitals Vital Signs Date Time Temp Pulse Resp B/P Pulse Ox O2 Delivery O2 Flow Rate FiO2 01/29/17 08:00 97.5 73 16 119/63 100 01/29/17 00:00 97.6 80 20 114/59 98 01/28/17 20:00 97.8 77 22 124/60 100 01/28/17 18:10 65 126/70 01/28/17 16:00 96.5 80 16 78/48 98 80/48 01/28/17 12:00 97.8 76 16 118/60 99 I/O 01/28/17 01/28/17 01/28/17 01/29/17 01/29/17 01/29/17 07:00 15:00 23:00 07:00 15:00 23:00 Intake Total 240 ml 840 ml 240 ml 120 ml Output Total 1200 ml 900 ml 700 ml 950 ml Balance -960 ml -60 ml -460 ml -830 ml Intake Oral 240 ml 840 ml 240 ml 120 ml Output Urine Total 1200 ml 900 ml 700 ml 950 ml # Bowel Movements 0 0 0 (Mary Manning MD R3) Result Diagram: 01/29/17 0607 01/29/17 06 Objective Remarks GENERAL: NAD. SKIN: Status post left BKA. Incision clean/dry/intact. Sutures removed. HEAD: Atraumatic. Normocephalic. CARDIOVASCULAR: RRR RESPIRATORY: Clear to auscultation. Breath sounds equal bilaterally. No wheezes , rales, or rhonchi. GASTROINTESTINAL: Abdomen soft, non-tender, nondistended. No hepato-splenomegaly , or palpable masses. No guarding. MUSCULOSKELETAL: Status post left BKA. Incision clean/dry/intact and well healing. NEUROLOGICAL: Awake and alert. Cranial nerves grossly intact. PSYCH: Normal mood and affect Procedures Left foot ankle incision and drainage with partial resection of the fifth metatarsal head Left BKA (Mary Manning MD R3) A/P Assessment and Plan 56-year-old male with a past medical history of complicated type 2 diabetes presented meeting sepsis criteria with diabetic left foot wound. 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 Requested physical therapy to work with the patient twice a day Discharge Planning Patient cleared from orthopedic standpoint. Patient cleared for SNF with PT however his Medicaid will not cover this. He needs continued physical therapy and is currently not safe for discharge. [facility] has evaluated the patient and did not accept him. The patient will be discharged once he is able to care for himself safely with outpatient physical therapy. (Mary Manning MD R3) Attending Attestation Patient seen and examined Case reviewed and discussed Agree with plan of care as discussed with me and documented in the resident note. (Nimisha Garcia MD) Problem List: (1) Hypotension Status: Acute Plan: She with acute episode of hypotension overnight, likely secondary to decreased by mouth and activity. Encouraged patient to drink plenty of fluids. When transferring, encouraged patient to go slow. Stopped his HCTZ. (2) TAYLOR (acute kidney injury) Status: Acute Plan: Acute on chronic renal disease. Creatinine improved with IV fluid hydration. Patient with recent bump in his creatinine to 1.9, given 1 L bolus normal saline. Repeat BMP. DC HCTZ. (3) Hyperkalemia Status: Acute Plan: Patient's potassium found to be 5.7 this morning. Repeat BMP pending. If potassium remains elevated, we'll start Kayexalate. 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 Antibiotic history is documented below. Patient cleared for rehabilitation, placement issues as above. Antibiotic history: Per infectious disease Augmentin 875 mg every 12 hours (started 01/02-01/06) Clindamycin IV (12/22-12/28) Zosyn also discontinued (12/22-12/26) Antibiotics per ID: Unasyn IV every 6 hours discontinued ( 12/26-01/01) (5) Skin rash Status: Resolved Plan: Resolved Likely was 2/2 antibiotic Augmentin (started 01/02-01/06) which is dc'd. Could also be related to pain medications (PO percocet was started 01/04-01/06). * Changed to Lortab, d/c Percocet * Hydrocortisone cream when necessary (6) Hypertension Status: Chronic Plan: BP better controlled with addition of lisinopril Amlodipine 10 mg daily HCTZ 25 mg daily (7) Hyperlipidemia Status: Acute Plan: Labs from 12/11 show elevated LDL of 120. 10 year ASCVD risk score is 12% - recommendation is for a high-intensity statin * Started atorvastatin (8) Anemia Status: Chronic Plan: Stable. Hematology consulted. Status post transfusion 4. Anemia workup unremarkable. (9) Stage 1 decubitus ulcer in diabetic patient Status: Acute Plan: Notified 01/03 at 11 AM of stage I decubitus at the patient's sacrum. On breakdown of epidermis, Stage 2 ulcer. Wound care nursing consulted Offload areas of pressure per protocol Continue to work with physical therapy Soft mattress order Further orders per wound care (10) Diabetes Status: Chronic Plan: Hemoglobin A1c on 12/11 was 6.9 Sliding scale insulin while in hospital. Patient has had diarrhea on metformin, likely will need to be discontinued as an outpatient and put on glipizide (11) Social issues Status: Acute Plan: Case management consulted to assist with disposition. Patient has no one to help care for him at home and is currently not safe for discharge. Details as above. Consider transfer to [place]. (12) Anxiety and depression Status: Acute Plan: Continue home Abilify 5 mg by mouth daily and Celexa 20 mg by mouth daily -Psychiatry consulted: Diagnosed with dysthymia; he has appropriate follow-up with psychiatry services in the community (13) HIT (heparin-induced thrombocytopenia) Status: Resolved Plan: Hematology consult Serotonin release assay negative. HIT positive is likely a false positive result Continue to monitor platelets Patient has been started on fondaparinux per hematology Medical history: Heparin discontinued Argatroban discontinued per hematology (14) FEN/DVT PPX/GI PPX Status: Acute Plan: Fluids: None Electrolytes: Will monitor and replace as needed Nutrition: Diabetic diet DVT Prophylaxis: Fondaparinux per orthopedic surgery. Okay from hematology to be on heparin prophylactically because of false positive HIT. GI Prophylaxis: Famotidine 10 mg IV every 12 hours (Mary Manning MD R3) Problem Qualifiers (1) Diabetic foot ulcer: Qualified Code: E11.621 - Diabetic ulcer of toe of left foot associated with type 2 diabetes mellitus, unspecified ulcer stage (2) Hypertension: Qualified Code: I10 - Essential hypertension (3) Hyperlipidemia: Qualified Code: E78.5 - Hyperlipidemia, unspecified hyperlipidemia type (4) Anemia: Qualified Code: D64.9 - Anemia, unspecified type (5) Diabetes: Mary Manning MD R3 Jan 29, 2017 10:16 Nimisha Garcia MD Jan 31, 2017 11:20
[2017-01-29 12:00] VITALS: BP 118/62; PULSE 90; RESP 20; TEMP 97.1; O2SAT 100
[2017-01-29 12:15] LABS: BICARBONATE 20.2 MEQ/L (21.0-32.0); POTASSIUM 5.5 MEQ/L (3.5-5.1)
[2017-01-29] MEDS: SODIUM CHLOR 0.9% 1000 ML INJ 1,000 ML IV SCH ×2 (14:15→21:02)
[2017-01-29 16:00] VITALS: BP 105/59; PULSE 74; RESP 18; TEMP 96.9; O2SAT 98
[2017-01-29 20:00] VITALS: BP 117/65; PULSE 73; RESP 18; TEMP 96.6; O2SAT 95
[2017-01-29] MEDS: FONDAPARINUX SODIUM 2.5 MG/0.5 ML SYRINGE SQ SCH (21:00)
[2017-01-29] MEDS: ATORVASTATIN 20 MG TAB PO SCH (21:00)
[2017-01-29] MEDS: HYDROCORTISONE 2.5% CREAM 30 GM TOPICAL SCH (21:00)
[2017-01-29] MEDS: SODIUM POLYSTYRENE SULFONATE SUSP 15 GM/60 ML CUP PO SCH (21:00)
[2017-01-30] VITALS (7 sets, daily range): BP systolic 123–142; BP diastolic 63–75; PULSE 76–92; RESP 16–20; TEMP 96.8–97.6; O2SAT 97–100
[2017-01-30] MEDS: SODIUM CHLOR 0.9% 1000 ML INJ 1,000 ML IV SCH ×3 (05:01→22:00)
[2017-01-30] MEDS: INSULIN ASPART SUPPLEMENTAL SCALE SQ SCH ×4 (05:01→21:00)
[2017-01-30 05:33] LABS: BICARBONATE 17.5 MEQ/L (21.0-32.0); POTASSIUM 5.9 MEQ/L (3.5-5.1)
[2017-01-30] MEDS: LACTOBACILLUS ACIDOPHILUS 1 GM PACKET PO SCH ×3 (08:37→17:38)
[2017-01-30] MEDS: SODIUM POLYSTYRENE SULFONATE SUSP 15 GM/60 ML CUP PO SCH ×2 (08:37→21:49)
[2017-01-30] MEDS: CITALOPRAM HYDROBROMIDE 20 MG TAB PO SCH (08:37)
[2017-01-30] MEDS: LISINOPRIL 10 MG TAB PO SCH (08:37)
[2017-01-30] MEDS: ARIPiprazole 5 MG TAB PO SCH (08:37)
[2017-01-30] MEDS: SODIUM CHLORIDE 0.9% FLUSH 10 ML FLUSH IV FLUSH SCH ×2 (08:37→21:49)
[2017-01-30] MEDS: MUPIROCIN 2% CREAM 15 GM TOPICAL SCH ×2 (08:38→21:00)
[2017-01-30] MEDS: MULTIVITAMINS/MINERALS THERAPEUTIC TAB PO SCH ×2 (08:45→21:48)
[2017-01-30] MEDS ORDERED: RESP: ALBUTEROL CONC 2.5 MG/0.5 ML NEB NEB ONE (08:45)
[2017-01-30] MEDS ORDERED: CALCIUM GLUCONATE 10% 1 GM/10 ML VIAL IV ONE ×3 (08:45→20:00)
--- NOTE | 2017-01-30 08:46 | HHI.FPPN ---
Subjective Remarks Patient reports feeling well. Past 2 days notices that he feels weak, lightheaded, and has blurry vision when exercising with PT. He denies palpitations, chest pain or SOB with these episodes. BP is reported as 80s / 50s. Besides these episodes, he has also noticed a fine tremor in both of his hands that is stopped when he focuses on the tremor. He has had tremors like this before and thinks it may be from his anti-psychotic treatments. No FHx of resting tremor. (Jonnathan Louise MD R2) Objective Vitals Vital Signs Date Time Temp Pulse Resp B/P Pulse Ox O2 Delivery O2 Flow Rate FiO2 01/30/17 00:00 96.8 76 16 128/68 97 01/29/17 20:00 96.6 73 18 117/65 95 01/29/17 16:00 96.9 74 18 105/59 98 01/29/17 12:00 97.1 90 20 118/62 100 I/O 01/29/17 01/29/17 01/29/17 01/30/17 01/30/17 01/30/17 07:00 15:00 23:00 07:00 15:00 23:00 Intake Total 120 ml 800 ml 2736 ml 1155 ml Output Total 950 ml 1600 ml 1850 ml 2000 ml Balance -830 ml -800 ml 886 ml -845 ml Intake Oral 120 ml 800 ml 480 ml 240 ml IV Total 2256 ml 915 ml Output Urine Total 950 ml 1600 ml 1850 ml 2000 ml # Bowel Movements 0 0 0 0 (Jonnathan Louise MD R2) Result Diagram: 01/29/17 0607 01/30/17 0412 Objective Remarks GENERAL: NAD. SKIN: Status post left BKA. Incision clean/dry/intact. Sutures removed. HEAD: Atraumatic. Normocephalic. CARDIOVASCULAR: RRR RESPIRATORY: Clear to auscultation. Breath sounds equal bilaterally. No wheezes , rales, or rhonchi. GASTROINTESTINAL: Abdomen soft, non-tender, nondistended. No hepato-splenomegaly , or palpable masses. No guarding. MUSCULOSKELETAL: Status post left BKA. Incision clean/dry/intact and well healing. NEUROLOGICAL: Awake and alert. Cranial nerves grossly intact. PSYCH: Normal mood and affect Procedures Left foot ankle incision and drainage with partial resection of the fifth metatarsal head Left BKA (Jonnathan Louise MD R2) A/P Assessment and Plan 56-year-old male with a past medical history of complicated type 2 diabetes presented meeting sepsis criteria with diabetic left foot wound. 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 Requested physical therapy to work with the patient twice a day Discharge Planning Patient cleared from orthopedic standpoint. Patient cleared for SNF with PT however his Medicaid will not cover this. He needs continued physical therapy and is currently not safe for discharge. [facility] has evaluated the patient and did not accept him. The patient will be discharged once he is able to care for himself safely with outpatient physical therapy. (Jonnathan Louise MD R2) Attending Attestation Patient seen and examined Case reviewed and discussed Agree with plan of care as discussed with me and documented in the resident note. Kayexalate, repeat BMP IVF Stop SUMMER-I, HCTZ discontinued Continue to monitor Is/Os Renal consult Suspect tardive dyskinesia from anti-psychotic meds Psych consult pending (Nimisha Garcia MD) Problem List: (1) Hypotension Status: Acute Plan: Hypotension likely related to decreased by mouth and activity. Encouraged patient to drink plenty of fluids. When transferring, encouraged patient to go slow. Stopped his HCTZ and amlodipine 10 mg. Restart if hypertensive. (2) TAYLOR (acute kidney injury) Status: Acute Plan: Acute on chronic renal disease. Creatinine at baseline 1.66 today. Getting 125 ml/hr NS. Hold fluids and encourage PO intake. (3) Tardive dyskinesia Status: Acute Plan: Likely 2/2 antipsychotic. Not disturbing to patient but he likes to work on electronics. Consider adding benzodiazepine, Benzotropine, or terbenazine. (4) Hyperkalemia Status: Acute Plan: Patient's potassium found to be 5.9 this morning. Repeat BMP pending. Kayexalate 15 g x 4 today. Repeat BMP in 8 hours. (5) Diabetic foot ulcer Status: Chronic Plan: Status post BKA on 12/23/16 for diabetic foot ulcer with osteomyelitis. Antibiotic history is documented below. Patient cleared for rehabilitation, placement issues as above. Antibiotic history: Per infectious disease Augmentin 875 mg every 12 hours (started 01/02-01/06) Clindamycin IV (12/22-12/28) Zosyn also discontinued (12/22-12/26) Antibiotics per ID: Unasyn IV every 6 hours discontinued ( 12/26-01/01) (6) Skin rash Status: Resolved Plan: Resolved Likely was 2/2 antibiotic Augmentin (started 01/02-01/06) which is dc'd. Could also be related to pain medications (PO percocet was started 01/04-01/06). * Changed to Lortab, d/c Percocet * Hydrocortisone cream when necessary (7) Hypertension Status: Chronic Plan: BP better controlled with addition of lisinopril Amlodipine 10 mg daily (HELD 01/30) HCTZ 25 mg daily (HELD 01/29) (8) Hyperlipidemia Status: Acute Plan: Labs from 12/11 show elevated LDL of 120. 10 year ASCVD risk score is 12% - recommendation is for a high-intensity statin * Started atorvastatin (9) Anemia Status: Chronic Plan: Stable. Hematology consulted. Status post transfusion 4. Anemia workup unremarkable. (10) Stage 1 decubitus ulcer in diabetic patient Status: Acute Plan: Notified 01/03 at 11 AM of stage I decubitus at the patient's sacrum. On breakdown of epidermis, Stage 2 ulcer. Wound care nursing consulted Offload areas of pressure per protocol Continue to work with physical therapy Soft mattress order Further orders per wound care (11) Diabetes Status: Chronic Plan: Hemoglobin A1c on 12/11 was 6.9 Sliding scale insulin while in hospital. Patient has had diarrhea on metformin, likely will need to be discontinued as an outpatient and put on glipizide (12) Social issues Status: Acute Plan: Case management consulted to assist with disposition. Patient has no one to help care for him at home and is currently not safe for discharge. Details as above. Consider transfer to [place]. (13) Anxiety and depression Status: Acute Plan: Continue home Abilify 5 mg by mouth daily and Celexa 20 mg by mouth daily -Psychiatry consulted: Diagnosed with dysthymia; he has appropriate follow-up with psychiatry services in the community (14) HIT (heparin-induced thrombocytopenia) Status: Resolved Plan: Hematology consult Serotonin release assay negative. HIT positive is likely a false positive result Continue to monitor platelets Patient has been started on fondaparinux per hematology Medical history: Heparin discontinued Argatroban discontinued per hematology (15) FEN/DVT PPX/GI PPX Status: Acute Plan: Fluids: None Electrolytes: Will monitor and replace as needed Nutrition: Diabetic diet DVT Prophylaxis: Fondaparinux per orthopedic surgery. Okay from hematology to be on heparin prophylactically because of false positive HIT. GI Prophylaxis: Famotidine 10 mg IV every 12 hours (Jonnathan Louise MD R2) Problem Qualifiers (1) Diabetic foot ulcer: Qualified Code: E11.621 - Diabetic ulcer of toe of left foot associated with type 2 diabetes mellitus, unspecified ulcer stage (2) Hypertension: Qualified Code: I10 - Essential hypertension (3) Hyperlipidemia: Qualified Code: E78.5 - Hyperlipidemia, unspecified hyperlipidemia type (4) Anemia: Qualified Code: D64.9 - Anemia, unspecified type (5) Diabetes: Jonnathan Louise MD R2 Jan 30, 2017 08:46 Nimisha Garcia MD Jan 31, 2017 11:14
[2017-01-30] MEDS ORDERED: SODIUM POLYSTYRENE SULFONATE SUSP 15 GM/60 ML CUP PO SCH (09:00)
[2017-01-30] MEDS ORDERED: SODIUM POLYSTYRENE SULFONATE SUSP 15 GM/60 ML CUP PO ONE (10:00)
[2017-01-30] MEDS ORDERED: CALCIUM GLUCONATE INJ 1 GM in SODIUM CHLORIDE 0.9% INJ 100 ML IV ONE (11:00)
--- NOTE | 2017-01-30 11:01 | RADRPT ---
EXAM DATE/TIME: 01/30/2017 10:04 [facility] COMPARISON: No previous studies available for comparison. INDICATIONS : Right leg swelling. MEDICAL HISTORY : Hypertension. Diabetic. Renal disease. SURGICAL HISTORY : Left below the knee amputation. ENCOUNTER: Initial ACUITY: 1 day PAIN SCORE: 10 LOCATION: Right leg. TECHNIQUE: Venous ultrasound of the leg was performed from the inguinal ligament to the proximal calf. Real-deric e, color Doppler and spectral tracing, compression and augmentation techniques were used. FINDINGS: There is normal compressibility of the deep venous system from the inguinal region to the proximal ca lf. No echogenic clot is seen in the lumen of the common femoral, femoral, popliteal, and posterior tibial veins. There is a normal response of the venous system to proximal and distal augmentation an d respiration. CONCLUSION: No DVT. Paramjit Rico MD on January 30, 2017 at 10:51 Board Certified Radiologist. This report was verified electronically.
--- NOTE | 2017-01-30 15:27 | HHI.PYPN ---
Subjective Remarks She was seen today for psychiatric reevaluation, patient reports okay mood, he denies depression at this moment, he denies anhedonia, he denies hopelessness, helplessness, worthlessness, he reports good appetite, good level of concentration, good level of energy, however he says that on and off he feels sad due to his medical situation. He also has been overwhelmed and frustrated with his lengthy hospitalization. Patient has been presenting bilateral hand tremor that he relates with Abilify. He says that since he has been inability 5 he has not is that his hands shakes. He never had that problem before. He reports good compliance and response to Celexa and Abilify. He denies suicidal or homicidal ideation, he denies visual and auditory hallucinations. Patient is oriented 3. No agitation, no aggressive behavior, no paranoia, no obsessions, ideas of reference present. Review of Systems Constitutional: DENIES: Diaphoretic episodes, Fatigue, Fever, Weight gain, Weight loss, Chills, Dizziness, Change in appetite, Night Sweats Endocrine: DENIES: Heat/cold intolerance, Polydipsia, Polyuria, Polyphagia Ears, nose, mouth, throat: DENIES: Tinnitus, Hearing loss, Vertigo, Nasal discharge, Oral lesions, Throat pain, Hoarseness, Ear Pain, Running Nose, Epistaxis, Sinus Pain, Toothache, Odynophagia Respiratory: DENIES: Apneas, Cough, Snoring, Wheezing, Hemoptysis, Sputum production, Shortness of breath Cardiovascular: DENIES: Chest pain, Palpitations, Syncope, Dyspnea on Exertion , PND, Lower Extremity Edema, Orthopnea, Claudication Gastrointestinal: DENIES: Abdominal pain, Black stools, Bloody stools, Constipation, Diarrhea, Nausea, Vomiting, Difficulty Swallowing, Anorexia Genitourinary: DENIES: Sexual dysfunction, Urinary frequency, Urinary incontinence, Urgency, Hematuria, Dysuria, Nocturia, Penile Discharge, Testicular Pain, Testicular Swelling Musculoskeletal: DENIES: Joint pain, Muscle aches, Stiffness, Joint Swelling, Back pain, Neck pain Integumentary: DENIES: Abnormal pigmentation, Nail changes, Pruritus, Rash Hematologic/lymphatic: DENIES: Bruising, Lymphadenopathy Immunologic/allergic: DENIES: Eczema, Urticaria Neurologic: COMPLAINS OF: Tremor Psychiatric: DENIES: Anxiety, Confusion, Mood changes, Depression, Hallucinations, Agitation, Suicidal Ideation, Homicidal Ideation, Delusions Objective Alert: Yes [place]: Person, Place, Situation Mood: Calm Affect: Appropriate Memory Intact: Immediate, Recent, Remote Hallucinations: Other (he denies) Delusions: No Delusion Type: Other (not illicit) Suicidal: Ideation (no SI) Homicidal: Ideation (no HI) Insight/Judgment Good Labs Test 01/30/17 04:12 Sodium Level 139 MEQ/L Potassium Level 5.9 MEQ/L Chloride Level 113 MEQ/L Carbon Dioxide Level 17.5 MEQ/L Anion Gap 9 MEQ/L Blood Urea Nitrogen 72 MG/DL Creatinine 1.66 MG/DL Estimat Glomerular Filtration 43 ML/MIN Rate Random Glucose 88 MG/DL Calcium Level 8.6 MG/DL Vitals/IOs Vital Signs Date Time Temp Pulse Resp B/P Pulse Ox O2 Delivery O2 Flow Rate FiO2 01/30/17 12:00 96.9 80 20 123/69 100 Intake and Output 01/29/17 01/29/17 01/30/17 08:00 16:00 00:00 Intake Total 120 ml 800 ml 2736 ml Output Total 950 ml 1600 ml 1850 ml Balance -830 ml -800 ml 886 ml Assessment & Plan Problem List: (1) Dysthymia Assessment & Plan: Would restart Celexa 20 mg for depression discontinue Abilify due to potential akathisia and bilateral hand tremor, and we'll start Seroquel 50 mg to help with depression and sleep. Would consider a neurology consult to assess neurological causes of bilateral hand tremor. ICD Code: F34.1 Assessment & Plan Estimated LOS: days Justification for Cont. Inpt. Patient does not meet criteria for psychiatric admission at this moment. Request HC Surrog/Guard Advoc?: No Julito Diaz MD Jan 30, 2017 15:27
[2017-01-30] MEDS ORDERED: CITALOPRAM HYDROBROMIDE 20 MG TAB PO SCH (15:30)
[2017-01-30 18:05] LABS: BICARBONATE 18.5 MEQ/L (21.0-32.0)
[2017-01-30] MEDS ORDERED: DEXTROSE 50% IN WATER 50 ML VIAL(D50) IV PUSH ONE (19:30)
[2017-01-30] MEDS ORDERED: INSULIN HUMAN REGULAR 1,000 UNITS/10 ML VIAL IV PUSH ONE (20:00)
[2017-01-30] MEDS ORDERED: SODIUM BICARBONATE 650 MG TAB PO ONE (20:00)
[2017-01-30] MEDS ORDERED: SODIUM BICARBONATE 8.4% INJ 150 MEQ in DEXTROSE 5% IN WATE 1000ML INJ 1,000 ML IV ONE ×2 (20:21)
[2017-01-30] MEDS: RESP: ALBUTEROL 2.5 MG/3 ML NEB (SCH) NEB ×2 (20:23→23:54)
[2017-01-30] MEDS: HYDROCORTISONE 2.5% CREAM 30 GM TOPICAL SCH (21:00)
[2017-01-30] MEDS: ATORVASTATIN 20 MG TAB PO SCH (21:48)
[2017-01-30] MEDS: QUEtiapine FUMARATE 25 MG TAB PO SCH (22:16)
[2017-01-30] MEDS: FONDAPARINUX SODIUM 2.5 MG/0.5 ML SYRINGE SQ SCH (22:17)
[2017-01-30 22:54] LABS: BICARBONATE 19.9 MEQ/L (21.0-32.0); POTASSIUM 4.8 MEQ/L (3.5-5.1)
[2017-01-31] VITALS (9 sets, daily range): BP systolic 119–172; BP diastolic 59–100; PULSE 76–100; RESP 16–20; TEMP 96.7–98.2; O2SAT 97–100
[2017-01-31] MEDS: RESP: ALBUTEROL 2.5 MG/3 ML NEB (SCH) NEB ×5 (03:01→19:42)
[2017-01-31] MEDS: CHLORHEXIDINE GLUCONATE 2 % 1 PACK (2 CLOTHS) TOP SCH (03:03)
[2017-01-31] MEDS: SODIUM CHLOR 0.9% 1000 ML INJ 1,000 ML IV SCH ×2 (06:00→12:20)
[2017-01-31] MEDS: INSULIN ASPART SUPPLEMENTAL SCALE SQ SCH ×4 (06:00→20:20)
[2017-01-31] MEDS: CITALOPRAM HYDROBROMIDE 20 MG TAB PO SCH (07:54)
[2017-01-31] MEDS: MULTIVITAMINS/MINERALS THERAPEUTIC TAB PO SCH ×2 (07:54→20:20)
[2017-01-31] MEDS: SODIUM CHLORIDE 0.9% FLUSH 10 ML FLUSH IV FLUSH SCH ×2 (07:55→20:19)
[2017-01-31] MEDS: LACTOBACILLUS ACIDOPHILUS 1 GM PACKET PO SCH ×3 (07:56→16:07)
[2017-01-31] MEDS: SODIUM POLYSTYRENE SULFONATE SUSP 15 GM/60 ML CUP PO SCH ×2 (07:56→12:20)
[2017-01-31] MEDS: MUPIROCIN 2% CREAM 15 GM TOPICAL SCH ×2 (07:57→20:21)
--- NOTE | 2017-01-31 12:51 | HHI.FPPN ---
Subjective Remarks No acute events overnight. Afebrile, vital signs stable. Patient with no complaints this morning. Continues to work with physical therapy. (Mary Manning MD R3) Objective Vitals Vital Signs Date Time Temp Pulse Resp B/P Pulse Ox O2 Delivery O2 Flow Rate FiO2 01/31/17 11:16 83 01/31/17 08:06 98 01/31/17 08:00 97.9 76 17 129/75 98 01/31/17 04:00 98.2 77 16 126/67 98 01/31/17 00:00 97.9 92 16 119/59 99 01/30/17 22:00 92 01/30/17 20:23 97 21 01/30/17 20:00 97.0 84 18 131/63 100 01/30/17 16:00 97.6 85 20 142/64 100 I/O 01/30/17 01/30/17 01/30/17 01/31/17 01/31/17 01/31/17 07:00 15:00 23:00 07:00 15:00 23:00 Intake Total 1155 ml 2644 ml 765 ml 1359 ml Output Total 2000 ml 1800 ml 900 ml 1000 ml Balance -845 ml 844 ml -135 ml 359 ml Intake Oral 240 ml 1440 ml 420 ml 120 ml IV Total 915 ml 1204 ml 345 ml 1239 ml Output Urine Total 2000 ml 1800 ml 900 ml 1000 ml # Bowel Movements 0 0 0 1 (Mary Manning MD R3) Result Diagram: 01/29/17 0607 01/30/17 2200 Objective Remarks GENERAL: NAD. SKIN: Status post left BKA. Incision clean/dry/intact. Sutures removed. HEAD: Atraumatic. Normocephalic. CARDIOVASCULAR: RRR RESPIRATORY: Clear to auscultation. Breath sounds equal bilaterally. No wheezes , rales, or rhonchi. GASTROINTESTINAL: Abdomen soft, non-tender, nondistended. No hepato-splenomegaly , or palpable masses. No guarding. MUSCULOSKELETAL: Status post left BKA. Incision clean/dry/intact and well healing. NEUROLOGICAL: Awake and alert. Cranial nerves grossly intact. PSYCH: Normal mood and affect Procedures Left foot ankle incision and drainage with partial resection of the fifth metatarsal head Left BKA (Mary Manning MD R3) A/P Assessment and Plan 56-year-old male with a past medical history of complicated type 2 diabetes presented meeting sepsis criteria with diabetic left foot wound. 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 Requested physical therapy to work with the patient twice a day Discharge Planning Patient cleared from orthopedic standpoint. Patient cleared for SNF with PT however his Medicaid will not cover this. He needs continued physical therapy and is currently not safe for discharge. [facility] has evaluated the patient and did not accept him. The patient will be discharged once he is able to care for himself safely with outpatient physical therapy. (Mary Manning MD R3) Attending Attestation Patient seen and examined. Case reviewed and discussed Agree with plan of care as discussed with me and documented in the resident note. (Nimisha Garcia MD) Problem List: (1) Hypotension Status: Resolved Plan: Hypotension likely related to decreased by mouth and activity. Encouraged patient to drink plenty of fluids. When transferring, encouraged patient to go slow. Stopped his HCTZ and amlodipine 10 mg. Restart if hypertensive. (2) TAYLOR (acute kidney injury) Status: Resolved Plan: Acute on chronic renal disease. Creatinine at baseline 1.67 today. DC IV fluids, encourage by mouth intake. Continue to monitor. (3) Tardive dyskinesia Status: Acute Plan: Likely 2/2 antipsychotic. Not disturbing to patient but he likes to work on electronics. Patient seen by psychiatry, Abilify discontinued. He started citalopram and Seroquel per their recommendations. (4) Hyperkalemia Status: Resolved Plan: Potassium 4.8 today. Decrease Kayexalate 15 g twice a day. (5) Diabetic foot ulcer Status: Chronic Plan: Status post BKA on 12/23/16 for diabetic foot ulcer with osteomyelitis. Antibiotic history is documented below. Patient cleared for rehabilitation, placement issues as above. Antibiotic history: Per infectious disease Augmentin 875 mg every 12 hours (started 01/02-01/06) Clindamycin IV (12/22-12/28) Zosyn also discontinued (12/22-12/26) Antibiotics per ID: Unasyn IV every 6 hours discontinued ( 12/26-01/01) (6) Skin rash Status: Resolved Plan: Resolved Likely was 2/2 antibiotic Augmentin (started 01/02-01/06) which is dc'd. Could also be related to pain medications (PO percocet was started 01/04-01/06). * Changed to Lortab, d/c Percocet * Hydrocortisone cream when necessary (7) Hypertension Status: Chronic Plan: BP better controlled with addition of lisinopril Amlodipine 10 mg daily (HELD 01/30) HCTZ 25 mg daily (HELD 01/29) (8) Hyperlipidemia Status: Acute Plan: Labs from 12/11 show elevated LDL of 120. 10 year ASCVD risk score is 12% - recommendation is for a high-intensity statin * Started atorvastatin (9) Anemia Status: Chronic Plan: Stable. Hematology consulted. Status post transfusion 4. Anemia workup unremarkable. (10) Stage 1 decubitus ulcer in diabetic patient Status: Acute Plan: Notified 01/03 at 11 AM of stage I decubitus at the patient's sacrum. On breakdown of epidermis, Stage 2 ulcer. Wound care nursing consulted Offload areas of pressure per protocol Continue to work with physical therapy Soft mattress order Further orders per wound care (11) Diabetes Status: Chronic Plan: Hemoglobin A1c on 12/11 was 6.9 Sliding scale insulin while in hospital. Patient has had diarrhea on metformin, likely will need to be discontinued as an outpatient and put on glipizide (12) Social issues Status: Acute Plan: Case management consulted to assist with disposition. Patient has no one to help care for him at home and is currently not safe for discharge. Details as above. Consider transfer to [place]. (13) Anxiety and depression Status: Acute Plan: Continue home Abilify 5 mg by mouth daily and Celexa 20 mg by mouth daily -Psychiatry consulted: Diagnosed with dysthymia; he has appropriate follow-up with psychiatry services in the community (14) HIT (heparin-induced thrombocytopenia) Status: Resolved Plan: Hematology consult Serotonin release assay negative. HIT positive is likely a false positive result Continue to monitor platelets Patient has been started on fondaparinux per hematology Medical history: Heparin discontinued Argatroban discontinued per hematology (15) FEN/DVT PPX/GI PPX Status: Acute Plan: Fluids: None Electrolytes: Will monitor and replace as needed Nutrition: Diabetic diet DVT Prophylaxis: Fondaparinux per orthopedic surgery. Okay from hematology to be on heparin prophylactically because of false positive HIT. GI Prophylaxis: Famotidine 10 mg IV every 12 hours (Mary Manning MD R3) Problem Qualifiers (1) Diabetic foot ulcer: Qualified Code: E11.621 - Diabetic ulcer of toe of left foot associated with type 2 diabetes mellitus, unspecified ulcer stage (2) Hypertension: Qualified Code: I10 - Essential hypertension (3) Hyperlipidemia: Qualified Code: E78.5 - Hyperlipidemia, unspecified hyperlipidemia type (4) Anemia: Qualified Code: D64.9 - Anemia, unspecified type (5) Diabetes: Mary Manning MD R3 Jan 31, 2017 12:51 Nimisha Garcia MD Feb 03, 2017 16:32
--- NOTE | 2017-01-31 14:02 | HHI.NPPN ---
Subjective General Problems: Anemia Renal Failure: Acute Additional Remarks Patient is alert, noted had L BKA re consult to address high K on unrestricted diabetic diet Review of Systems General Constitutional: Fatigue Musculoskeletal MS: Pain/Stiffness Objective Data Data 01/30/17 01/31/17 19:00 07:00 Intake Total 2989 ml 1779 ml Output Total 1800 ml 1900 ml Balance 1189 ml -121 ml Intake Oral 1440 ml 540 ml IV Total 1549 ml 1239 ml Output Urine Total 1800 ml 1900 ml # Bowel Movements 0 1 Vital Signs Date Time Temp Pulse Resp B/P Pulse Ox O2 Delivery O2 Flow Rate FiO2 01/31/17 12:00 97.6 84 16 133/63 99 01/31/17 11:16 83 01/31/17 08:06 98 01/31/17 08:00 97.9 76 17 129/75 98 01/31/17 04:00 98.2 77 16 126/67 98 01/31/17 00:00 97.9 92 16 119/59 99 01/30/17 22:00 92 01/30/17 20:23 97 21 01/30/17 20:00 97.0 84 18 131/63 100 01/30/17 16:00 97.6 85 20 142/64 100 -: 01/29/17 0607 01/30/17 2200 Physical Exam General Appearance: No Acute Distress, Comfortable Neck Neck Exam: Neck Supple Pulmonary Resp Exam: Clear Bilaterally, Breath Sounds Equal Cardiology CV Exam: Regular, Normal Sinus Rhythm Gastrointestinal/Abdomen GI Exam: Soft, Non-Tender, Bowel Sounds Present Extremeties Extremities Exam: Trace Edema Extremeties Remarks Left BKA Neurologic Neuro Exam: Alert, Awake Assessment/Plan Problem List: (1) Acute renal failure superimposed on stage 3 chronic kidney disease Plan: Since last visit he had L BKA hyperkalemia due to CKD stage 3 diabetic kidney disease on unrestricted potassium diet I discussed that he has to limit K in diet may stop Kayexalate K 4.8 stages of CKD discussed he was told he has stage 3 CKD treatment is diet control and diabetes, BP control agree with holding ACEI will follow as needed (2) Osteomyelitis of left foot Plan: post amputation L BKA Problem Qualifiers (1) Acute renal failure superimposed on stage 3 chronic kidney disease: Qualified Code: N17.9 - Acute renal failure superimposed on stage 3 chronic kidney disease, unspecified acute renal failure type (2) Osteomyelitis of left foot: Qualified Code: M86.472 - Chronic osteomyelitis of left foot with draining sinus Shelley Cotto MD Jan 31, 2017 14:02
--- NOTE | 2017-01-31 15:30 | EKG ---
Date Performed: 01/30/2017 Time Performed: 21:20:49 PTAGE: 56 years EKG: Sinus rhythm Compared to previous tracing, the frequent PVCs have resolved NORMAL ECG PREVIOUS TRACING : 12/22/2016 10.03 DOCTOR: Caroline Jameson Interpretating Date/Time 01/31/2017 15:28:03
[2017-01-31 16:15] LABS: BICARBONATE 20.7 MEQ/L (21.0-32.0); POTASSIUM 4.6 MEQ/L (3.5-5.1)
[2017-01-31] MEDS: ATORVASTATIN 20 MG TAB PO SCH (20:20)
[2017-01-31] MEDS: FONDAPARINUX SODIUM 2.5 MG/0.5 ML SYRINGE SQ SCH (20:20)
[2017-01-31] MEDS: QUEtiapine FUMARATE 25 MG TAB PO SCH (20:20)
[2017-01-31] MEDS: HYDROCORTISONE 2.5% CREAM 30 GM TOPICAL SCH (20:21)
[2017-01-31] MEDS ORDERED: SODIUM POLYSTYRENE SULFONATE SUSP 15 GM/60 ML CUP PO SCH (21:00)
[2017-02-01] VITALS (7 sets, daily range): BP systolic 108–165; BP diastolic 65–79; PULSE 74–84; RESP 16–20; TEMP 95.8–98.1; O2SAT 96–98
[2017-02-01] MEDS: CHLORHEXIDINE GLUCONATE 2 % 1 PACK (2 CLOTHS) TOP SCH ×2 (04:00→21:21)
[2017-02-01] MEDS: RESP: ALBUTEROL 2.5 MG/3 ML NEB (SCH) NEB ×6 (04:00→23:16)
[2017-02-01] MEDS: INSULIN ASPART SUPPLEMENTAL SCALE SQ SCH ×4 (06:07→21:00)
[2017-02-01 06:27] LABS: BICARBONATE 19.2 MEQ/L (21.0-32.0); POTASSIUM 4.7 MEQ/L (3.5-5.1)
[2017-02-01] MEDS: SODIUM CHLORIDE 0.9% FLUSH 10 ML FLUSH IV FLUSH SCH ×2 (08:21→21:20)
[2017-02-01] MEDS: CITALOPRAM HYDROBROMIDE 20 MG TAB PO SCH (08:21)
[2017-02-01] MEDS: MULTIVITAMINS/MINERALS THERAPEUTIC TAB PO SCH ×2 (08:21→21:20)
[2017-02-01] MEDS: LACTOBACILLUS ACIDOPHILUS 1 GM PACKET PO SCH ×3 (08:21→17:00)
[2017-02-01] MEDS: MUPIROCIN 2% CREAM 15 GM TOPICAL SCH ×2 (08:22→21:00)
--- NOTE | 2017-02-01 09:10 | HHI.FPPN ---
Subjective Remarks No acute events overnight. Patient c/o diarrhea. Continues to work with PT. ( Mary Manning MD R3) Objective Vitals Vital Signs Date Time Temp Pulse Resp B/P Pulse Ox O2 Delivery O2 Flow Rate FiO2 02/01/17 08:00 98.0 77 17 135/69 96 02/01/17 07:02 80 02/01/17 04:00 97.0 84 20 165/79 98 02/01/17 00:00 98.1 81 20 147/71 98 01/31/17 22:00 82 01/31/17 20:00 97.5 77 20 139/68 98 01/31/17 16:00 97.1 100 17 139/70 97 01/31/17 12:00 97.6 84 16 133/63 99 01/31/17 11:16 83 I/O 01/31/17 01/31/17 01/31/17 02/01/17 02/01/17 02/01/17 07:00 15:00 23:00 07:00 15:00 23:00 Intake Total 1359 ml 1488 ml 1004 ml 1319 ml 380 ml Output Total 1000 ml 1600 ml 625 ml 825 ml Balance 359 ml -112 ml 379 ml 494 ml 380 ml Intake Oral 120 ml 340 ml 240 ml 120 ml IV Total 1239 ml 1148 ml 764 ml 1199 ml 380 ml Output Urine Total 1000 ml 1600 ml 625 ml 825 ml # Bowel Movements 1 1 2 1 (Mary Manning MD R3) Result Diagram: 01/29/17 0607 02/01/17 0410 Objective Remarks GENERAL: NAD. SKIN: Status post left BKA. Incision clean/dry/intact. Sutures removed. HEAD: Atraumatic. Normocephalic. CARDIOVASCULAR: RRR RESPIRATORY: Clear to auscultation. Breath sounds equal bilaterally. No wheezes , rales, or rhonchi. GASTROINTESTINAL: Abdomen soft, non-tender, nondistended. No hepato-splenomegaly , or palpable masses. No guarding. MUSCULOSKELETAL: Status post left BKA. Incision clean/dry/intact and well healing. NEUROLOGICAL: Awake and alert. Cranial nerves grossly intact. PSYCH: Normal mood and affect Procedures Left foot ankle incision and drainage with partial resection of the fifth metatarsal head Left BKA (Mary Manning MD R3) A/P Assessment and Plan 56-year-old male with a past medical history of complicated type 2 diabetes presented meeting sepsis criteria with diabetic left foot wound. 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 Requested physical therapy to work with the patient twice a day Discharge Planning Patient cleared from orthopedic standpoint. Patient cleared for SNF with PT however his Medicaid will not cover this. He needs continued physical therapy and is currently not safe for discharge. [facility] has evaluated the patient and did not accept him. The patient will be discharged once he is able to care for himself safely with outpatient physical therapy. (Mary Manning MD R3) Attending Attestation Patient seen and examined. Case reviewed and discussed Agree with plan of care as discussed with me and documented in the resident note. (Nimisha Garcia MD) Problem List: (1) Hypotension Status: Resolved Plan: Resolved. Hypotension likely related to decreased by mouth and activity. Encouraged patient to drink plenty of fluids. When transferring, encouraged patient to go slow. Stopped his HCTZ and amlodipine 10 mg. Restart if hypertensive. (2) TAYLOR (acute kidney injury) Status: Resolved Plan: Acute on chronic renal disease. Creatinine improved from baseline at 1.22 today. DC IV fluids, encourage by mouth intake. Continue to monitor. (3) Tardive dyskinesia Status: Acute Plan: Improving. Likely 2/2 antipsychotic. Not disturbing to patient but he likes to work on electronics. Patient seen by psychiatry, Abilify discontinued. He started citalopram and Seroquel per their recommendations. (4) Hyperkalemia Status: Resolved Plan: Potassium 4.7 today. D/C Kayexalate as patient c/o diarrhea. (5) Diabetic foot ulcer Status: Chronic Plan: Status post BKA on 12/23/16 for diabetic foot ulcer with osteomyelitis. Antibiotic history is documented below. Patient cleared for rehabilitation, placement issues as above. Antibiotic history: Per infectious disease Augmentin 875 mg every 12 hours (started 01/02-01/06) Clindamycin IV (12/22-12/28) Zosyn also discontinued (12/22-12/26) Antibiotics per ID: Unasyn IV every 6 hours discontinued ( 12/26-01/01) (6) Skin rash Status: Resolved Plan: Resolved Likely was 2/2 antibiotic Augmentin (started 01/02-01/06) which is dc'd. Could also be related to pain medications (PO percocet was started 01/04-01/06). * Changed to Lortab, d/c Percocet * Hydrocortisone cream when necessary (7) Hypertension Status: Chronic Plan: BP medications as above. (8) Hyperlipidemia Status: Acute Plan: Labs from 12/11 show elevated LDL of 120. 10 year ASCVD risk score is 12% - recommendation is for a high-intensity statin * Started atorvastatin (9) Anemia Status: Chronic Plan: Stable. Hematology consulted. Status post transfusion 4. Anemia workup unremarkable. (10) Stage 1 decubitus ulcer in diabetic patient Status: Acute Plan: Notified 01/03 at 11 AM of stage I decubitus at the patient's sacrum. On breakdown of epidermis, Stage 2 ulcer. Wound care nursing consulted Offload areas of pressure per protocol Continue to work with physical therapy Soft mattress order Further orders per wound care (11) Diabetes Status: Chronic Plan: Hemoglobin A1c on 12/11 was 6.9 Sliding scale insulin while in hospital. Patient has had diarrhea on metformin, likely will need to be discontinued as an outpatient and put on glipizide (12) Social issues Status: Acute Plan: Case management consulted to assist with disposition. Patient has no one to help care for him at home and is currently not safe for discharge. Details as above. Consider transfer to [place]. (13) Anxiety and depression Status: Acute Plan: Continue home Abilify 5 mg by mouth daily and Celexa 20 mg by mouth daily -Psychiatry consulted: Diagnosed with dysthymia; he has appropriate follow-up with psychiatry services in the community (14) HIT (heparin-induced thrombocytopenia) Status: Resolved Plan: Hematology consult Serotonin release assay negative. HIT positive is likely a false positive result Continue to monitor platelets Patient has been started on fondaparinux per hematology Medical history: Heparin discontinued Argatroban discontinued per hematology (15) FEN/DVT PPX/GI PPX Status: Acute Plan: Fluids: None. Encouraged PO intake Electrolytes: Will monitor and replace as needed Nutrition: Diabetic diet DVT Prophylaxis: Fondaparinux per orthopedic surgery. Okay from hematology to be on heparin prophylactically because of false positive HIT. GI Prophylaxis: Famotidine 10 mg IV every 12 hours (Mary Manning MD R3) Problem Qualifiers (1) Diabetic foot ulcer: Qualified Code: E11.621 - Diabetic ulcer of toe of left foot associated with type 2 diabetes mellitus, unspecified ulcer stage (2) Hypertension: Qualified Code: I10 - Essential hypertension (3) Hyperlipidemia: Qualified Code: E78.5 - Hyperlipidemia, unspecified hyperlipidemia type (4) Anemia: Qualified Code: D64.9 - Anemia, unspecified type (5) Diabetes: Mary Manning MD R3 Feb 01, 2017 09:10 Nimisha Garcia MD Feb 03, 2017 16:32
[2017-02-01] MEDS: HYDROCORTISONE 2.5% CREAM 30 GM TOPICAL SCH (21:00)
[2017-02-01] MEDS: QUEtiapine FUMARATE 25 MG TAB PO SCH (21:20)
[2017-02-01] MEDS: FONDAPARINUX SODIUM 2.5 MG/0.5 ML SYRINGE SQ SCH (21:20)
[2017-02-01] MEDS: ATORVASTATIN 20 MG TAB PO SCH (21:20)
[2017-02-02] VITALS (7 sets, daily range): BP systolic 108–138; BP diastolic 65–81; PULSE 71–80; RESP 16–20; TEMP 97.1–98.6; O2SAT 96–98
[2017-02-02] MEDS: RESP: ALBUTEROL 2.5 MG/3 ML NEB (SCH) NEB ×5 (02:21→21:15)
[2017-02-02] MEDS: INSULIN ASPART SUPPLEMENTAL SCALE SQ SCH ×4 (05:15→20:56)
[2017-02-02 06:13] LABS: BICARBONATE 21.2 MEQ/L (21.0-32.0); POTASSIUM 4.4 MEQ/L (3.5-5.1)
[2017-02-02] MEDS: CITALOPRAM HYDROBROMIDE 20 MG TAB PO SCH (08:28)
[2017-02-02] MEDS: MUPIROCIN 2% CREAM 15 GM TOPICAL SCH ×2 (08:29→20:57)
[2017-02-02] MEDS: MULTIVITAMINS/MINERALS THERAPEUTIC TAB PO SCH ×2 (08:29→20:55)
[2017-02-02] MEDS: SODIUM CHLORIDE 0.9% FLUSH 10 ML FLUSH IV FLUSH SCH ×2 (08:29→20:55)
[2017-02-02] MEDS: LACTOBACILLUS ACIDOPHILUS 1 GM PACKET PO SCH ×3 (08:29→17:28)
--- NOTE | 2017-02-02 09:42 | HHI.FPPN ---
Subjective Remarks Patient feeling well. Having some discomfort / pain at surgical site on left lower extremity. Able to get out of bed with assistance. Not feeling light headed when transitioning to chair. Urinating normally. Requesting a diet with more protein. (Jonnathan Louise MD R2) Objective Vitals Vital Signs Date Time Temp Pulse Resp B/P Pulse Ox O2 Delivery O2 Flow Rate FiO2 02/02/17 08:38 21 02/02/17 08:00 98.6 71 17 138/65 97 02/02/17 07:44 78 02/02/17 04:00 97.1 72 20 126/68 98 02/02/17 00:00 98.1 78 20 118/67 96 02/01/17 20:00 98.1 78 20 134/73 98 02/01/17 20:00 74 02/01/17 16:00 95.8 84 16 108/65 96 02/01/17 12:00 98.0 78 17 130/71 97 I/O 02/01/17 02/01/17 02/01/17 02/02/17 02/02/17 02/02/17 07:00 15:00 23:00 07:00 15:00 23:00 Intake Total 1319 ml 720 ml 240 ml 120 ml Output Total 825 ml 900 ml 800 ml 1200 ml Balance 494 ml -180 ml -560 ml -1080 ml Intake Oral 120 ml 340 ml 240 ml 120 ml IV Total 1199 ml 380 ml Output Urine Total 825 ml 900 ml 800 ml 1200 ml Stool Total 0 ml # Bowel Movements 1 1 1 (Jonnathan Louise MD R2) Result Diagram: 01/29/17 0607 02/02/17 0454 Objective Remarks GENERAL: NAD. SKIN: Status post left BKA. Incision clean/dry/intact. Sutures removed. HEAD: Atraumatic. Normocephalic. CARDIOVASCULAR: RRR RESPIRATORY: Clear to auscultation. Breath sounds equal bilaterally. No wheezes , rales, or rhonchi. GASTROINTESTINAL: Abdomen soft, non-tender, nondistended. No hepato-splenomegaly , or palpable masses. No guarding. MUSCULOSKELETAL: Status post left BKA. Incision clean/dry/intact and well healing. NEUROLOGICAL: Awake and alert. Cranial nerves grossly intact. PSYCH: Normal mood and affect Procedures Left foot ankle incision and drainage with partial resection of the fifth metatarsal head Left BKA (Jonnathan Louise MD R2) A/P Assessment and Plan 56-year-old male with a past medical history of complicated type 2 diabetes presented meeting sepsis criteria with diabetic left foot wound. 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 Requested physical therapy to work with the patient twice a day Discharge Planning Patient cleared from orthopedic standpoint. Patient cleared for SNF with PT however his Medicaid will not cover this. He needs continued physical therapy and is currently not safe for discharge. [facility] has evaluated the patient and did not accept him. The patient will be discharged once he is able to care for himself safely with outpatient physical therapy. (Jonnathan Louise MD R2) Attending Attestation Patient seen and examined. Case reviewed and discussed Agree with plan of care as discussed with me and documented in the resident note. (Nimisha Garcia MD) Problem List: (1) Hypotension Status: Resolved Plan: Resolved. Hypotension likely related to decreased by mouth and activity. Encouraged patient to drink plenty of fluids. When transferring, encouraged patient to go slow. Stopped his HCTZ and amlodipine 10 mg. Restart if hypertensive. (2) TAYLOR (acute kidney injury) Status: Resolved Plan: Acute on chronic renal disease. Creatinine improved from baseline at 1.36 today. DC IV fluids, encourage by mouth intake. Continue to monitor. (3) Tardive dyskinesia Status: Acute Plan: Improving. Likely 2/2 antipsychotic. Not disturbing to patient but he likes to work on electronics. Patient seen by psychiatry, Abilify discontinued. He started citalopram and Seroquel per their recommendations. (4) Hyperkalemia Status: Resolved Plan: Potassium 4.4 today. D/C Kayexalate as patient c/o diarrhea. (5) Diabetic foot ulcer Status: Chronic Plan: Status post BKA on 12/23/16 for diabetic foot ulcer with osteomyelitis. Antibiotic history is documented below. Patient cleared for rehabilitation, placement issues as above. Antibiotic history: Per infectious disease Augmentin 875 mg every 12 hours (started 01/02-01/06) Clindamycin IV (12/22-12/28) Zosyn also discontinued (12/22-12/26) Antibiotics per ID: Unasyn IV every 6 hours discontinued ( 12/26-01/01) (6) Skin rash Status: Resolved Plan: Resolved Likely was 2/2 antibiotic Augmentin (started 01/02-01/06) which is dc'd. Could also be related to pain medications (PO percocet was started 01/04-01/06). * Changed to Lortab, d/c Percocet * Hydrocortisone cream when necessary (7) Hypertension Status: Chronic Plan: BP medications as above. (8) Hyperlipidemia Status: Acute Plan: Labs from 12/11 show elevated LDL of 120. 10 year ASCVD risk score is 12% - recommendation is for a high-intensity statin * Started atorvastatin (9) Anemia Status: Chronic Plan: Stable. Hematology consulted. Status post transfusion 4. Anemia workup unremarkable. (10) Stage 1 decubitus ulcer in diabetic patient Status: Acute Plan: Notified 01/03 at 11 AM of stage I decubitus at the patient's sacrum. On breakdown of epidermis, Stage 2 ulcer. Wound care nursing consulted Offload areas of pressure per protocol Continue to work with physical therapy Soft mattress order Further orders per wound care (11) Diabetes Status: Chronic Plan: Hemoglobin A1c on 12/11 was 6.9 Sliding scale insulin while in hospital. Patient has had diarrhea on metformin, likely will need to be discontinued as an outpatient and put on glipizide (12) Social issues Status: Acute Plan: Case management consulted to assist with disposition. Patient has no one to help care for him at home and is currently not safe for discharge. Details as above. Consider transfer to [place]. (13) Anxiety and depression Status: Acute Plan: Continue home Abilify 5 mg by mouth daily and Celexa 20 mg by mouth daily -Psychiatry consulted: Diagnosed with dysthymia; he has appropriate follow-up with psychiatry services in the community (14) HIT (heparin-induced thrombocytopenia) Status: Resolved Plan: Hematology consult Serotonin release assay negative. HIT positive is likely a false positive result Continue to monitor platelets Patient has been started on fondaparinux per hematology Medical history: Heparin discontinued Argatroban discontinued per hematology (15) FEN/DVT PPX/GI PPX Status: Acute Plan: Fluids: None. Encouraged PO intake Electrolytes: Will monitor and replace as needed Nutrition: Diabetic diet DVT Prophylaxis: Fondaparinux per orthopedic surgery. Okay from hematology to be on heparin prophylactically because of false positive HIT. GI Prophylaxis: not rec at this time. (Jonnathan Louise MD R2) Problem Qualifiers (1) Diabetic foot ulcer: Qualified Code: E11.621 - Diabetic ulcer of toe of left foot associated with type 2 diabetes mellitus, unspecified ulcer stage (2) Hypertension: Qualified Code: I10 - Essential hypertension (3) Hyperlipidemia: Qualified Code: E78.5 - Hyperlipidemia, unspecified hyperlipidemia type (4) Anemia: Qualified Code: D64.9 - Anemia, unspecified type (5) Diabetes: Jonnathan Louise MD R2 Feb 02, 2017 09:42 Nimisha Garcia MD Feb 03, 2017 16:32
[2017-02-02] MEDS: ATORVASTATIN 20 MG TAB PO SCH (20:55)
[2017-02-02] MEDS: FONDAPARINUX SODIUM 2.5 MG/0.5 ML SYRINGE SQ SCH (20:55)
[2017-02-02] MEDS: QUEtiapine FUMARATE 25 MG TAB PO SCH (20:56)
[2017-02-02] MEDS: HYDROCORTISONE 2.5% CREAM 30 GM TOPICAL SCH (20:57)
[2017-02-02] MEDS: CHLORHEXIDINE GLUCONATE 2 % 1 PACK (2 CLOTHS) TOP SCH (20:57)
[2017-02-03] VITALS: BP 147/68; PULSE 76; RESP 20; TEMP 97; O2SAT 98
[2017-02-03] MEDS: RESP: ALBUTEROL 2.5 MG/3 ML NEB (SCH) NEB ×6 (00:07→19:01)
[2017-02-03 05:08] LABS: BASOPHIL % 0.3 % (0.0-2.0); EOSINOPHIL # 0.6 TH/MM3 (0-0.4); EOSINOPHIL % 7.7 % (0.0-4.0); HEMATOCRIT 27.6 % (39.0-51.0); LYMPH % 25.1 % (9.0-44.0); LYMPHOCYTE # 1.9 TH/MM3 (1.0-4.8); MEAN CELL VOLUME 90.3 FL (80.0-100.0); MEAN CORPUSCULAR HGB CONC 34.4 % (32.0-36.0); MONO % 14.3 % (0.0-8.0); NEUT % 52.6 % (16.0-70.0); PLATELET COUNT 97 TH/MM3 (150-450); RED BLOOD COUNT 3.06 MIL/MM3 (4.50-5.90); WHITE BLOOD COUNT 7.6 TH/MM3 (4.0-11.0)
[2017-02-03 05:18] LABS: HEMO FLAGS AUTO DIFF
[2017-02-03 05:34] LABS: BICARBONATE 21.5 MEQ/L (21.0-32.0); POTASSIUM 4.3 MEQ/L (3.5-5.1)
[2017-02-03 05:40] LABS: OVALOCYTES 1+ (NORMAL); PLATELET ESTIMATE SMEAR LOW (NORMAL); PLATELET MORPHOLOGY NORMAL (NORMAL); SCAN/DIFF AUTO DIFF CONFIRMED
[2017-02-03] MEDS: INSULIN ASPART SUPPLEMENTAL SCALE SQ SCH ×4 (05:41→20:11)
[2017-02-03 08:00] VITALS: BP 110/68; PULSE 72; RESP 18; TEMP 98; O2SAT 98
--- NOTE | 2017-02-03 08:47 | HHI.FPPN ---
Subjective Remarks Feeling well no concerns. Waiting placement into SNF/in-pt rehab. Tolerating new anti-psychotic and shaking has decreased. Working with PT and nursing to get out of bed. Yesterday was in chair for 2 hours and felt fatigued but also reports more energy than the past several days. Requesting a diet change that is not low protein and sodium. Still having "twinge" in left lower extremity but no change in severity. No fevers or chills. (Jonnathan Louise MD R2) Objective Vitals Vital Signs Date Time Temp Pulse Resp B/P Pulse Ox O2 Delivery O2 Flow Rate FiO2 02/03/17 00:00 97.0 76 20 147/68 98 02/02/17 20:00 98.0 77 20 133/66 96 02/02/17 16:00 97.8 71 16 132/75 98 02/02/17 12:00 98.6 80 17 108/81 98 I/O 02/02/17 02/02/17 02/02/17 02/03/17 02/03/17 02/03/17 07:00 15:00 23:00 07:00 15:00 23:00 Intake Total 120 ml 960 ml 220 ml Output Total 1200 ml 800 ml Balance -1080 ml 160 ml 220 ml Intake Oral 120 ml 960 ml 220 ml IV Total 0 ml Output Urine Total 1200 ml 800 ml # Bowel Movements 1 0 (Jonnathan Louise MD R2) Result Diagram: 02/03/179 02/03/17428 Objective Remarks GENERAL: NAD. SKIN: Status post left BKA. Incision clean/dry/intact. Sutures removed. HEAD: Atraumatic. Normocephalic. CARDIOVASCULAR: RRR RESPIRATORY: Clear to auscultation. Breath sounds equal bilaterally. No wheezes , rales, or rhonchi. GASTROINTESTINAL: Abdomen soft, non-tender, nondistended. No hepato-splenomegaly , or palpable masses. No guarding. MUSCULOSKELETAL: Status post left BKA. Incision clean/dry/intact and well healing. NEUROLOGICAL: Awake and alert. Cranial nerves grossly intact. PSYCH: Normal mood and affect Procedures Left foot ankle incision and drainage with partial resection of the fifth metatarsal head Left BKA (Jonnathan Louise MD R2) A/P Assessment and Plan 56-year-old male with a past medical history of complicated type 2 diabetes presented meeting sepsis criteria with diabetic left foot wound. 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 Requested physical therapy to work with the patient twice a day Discharge Planning Patient cleared from orthopedic standpoint. Patient cleared for SNF with PT however his Medicaid will not cover this. He needs continued physical therapy and is currently not safe for discharge. [facility] has evaluated the patient and did not accept him. The patient will be discharged once he is able to care for himself safely with outpatient physical therapy. (Jonnathan Louise MD R2) Attending Attestation Patient seen and examined. Case reviewed and discussed Agree with plan of care as discussed with me and documented in the resident note. (Nimisha Garcia MD) Problem List: (1) Hypotension Status: Resolved Plan: Resolved. Hypotension likely related to decreased by mouth and activity. Encouraged patient to drink plenty of fluids. When transferring, encouraged patient to go slow. Stopped his HCTZ, nabor inhibitor, and amlodipine 10 mg. Restart if hypertensive. (2) TAYLOR (acute kidney injury) Status: Resolved Plan: Acute on chronic renal disease. Creatinine stable at 1.36 (baseline). DC IV fluids, encourage by mouth intake. Continue to monitor. (3) Tardive dyskinesia Status: Acute Plan: Improving. Likely 2/2 antipsychotic. Not disturbing to patient but he likes to work on electronics. Patient seen by psychiatry, Ariel discontinued. He started citalopram and Seroquel per their recommendations. Much improved since changes in medications were made. (4) Hyperkalemia Status: Resolved Plan: Potassium 4.3 today. D/C Kayexalate as patient c/o diarrhea. (5) Diabetic foot ulcer Status: Chronic Plan: Status post BKA on 12/23/16 for diabetic foot ulcer with osteomyelitis. Antibiotic history is documented below. Patient cleared for rehabilitation, placement issues as above. Antibiotic history: Per infectious disease Augmentin 875 mg every 12 hours (started 01/02-01/06) Clindamycin IV (12/22-12/28) Zosyn also discontinued (12/22-12/26) Antibiotics per ID: Unasyn IV every 6 hours discontinued ( 12/26-01/01) (6) Skin rash Status: Resolved Plan: Resolved Likely was 2/2 antibiotic Augmentin (started 01/02-01/06) which is dc'd. Could also be related to pain medications (PO percocet was started 01/04-01/06). * Changed to Lortab, d/c Percocet * Hydrocortisone cream when necessary (7) Hypertension Status: Chronic Plan: BP medications as above. (8) Hyperlipidemia Status: Acute Plan: Labs from 12/11 show elevated LDL of 120. 10 year ASCVD risk score is 12% - recommendation is for a high-intensity statin * Started atorvastatin (9) Anemia Status: Chronic Plan: Stable. Hematology consulted. Status post transfusion 4. Anemia workup unremarkable. (10) Stage 1 decubitus ulcer in diabetic patient Status: Acute Plan: Notified 01/03 at 11 AM of stage I decubitus at the patient's sacrum. On breakdown of epidermis, Stage 2 ulcer. Wound care nursing consulted Offload areas of pressure per protocol Continue to work with physical therapy Soft mattress order Further orders per wound care (11) Diabetes Status: Chronic Plan: Hemoglobin A1c on 12/11 was 6.9 Sliding scale insulin while in hospital. Patient has had diarrhea on metformin, likely will need to be discontinued as an outpatient and put on glipizide (12) Social issues Status: Acute Plan: Case management consulted to assist with disposition. Patient has no one to help care for him at home and is currently not safe for discharge. Details as above. Consider transfer to [place]. (13) Anxiety and depression Status: Acute Plan: Continue home Abilify 5 mg by mouth daily and Celexa 20 mg by mouth daily -Psychiatry consulted: Diagnosed with dysthymia; he has appropriate follow-up with psychiatry services in the community (14) HIT (heparin-induced thrombocytopenia) Status: Resolved Plan: Hematology consult Serotonin release assay negative. HIT positive is likely a false positive result Continue to monitor platelets Patient has been started on fondaparinux per hematology Medical history: Heparin discontinued Argatroban discontinued per hematology (15) FEN/DVT PPX/GI PPX Status: Acute Plan: Fluids: None. Encouraged PO intake Electrolytes: Will monitor and replace as needed Nutrition: Diabetic diet DVT Prophylaxis: Fondaparinux per orthopedic surgery. Okay from hematology to be on heparin prophylactically because of false positive HIT. GI Prophylaxis: not rec at this time. (Jonnathan Louise MD R2) Problem Qualifiers (1) Diabetic foot ulcer: Qualified Code: E11.621 - Diabetic ulcer of toe of left foot associated with type 2 diabetes mellitus, unspecified ulcer stage (2) Hypertension: Qualified Code: I10 - Essential hypertension (3) Hyperlipidemia: Qualified Code: E78.5 - Hyperlipidemia, unspecified hyperlipidemia type (4) Anemia: Qualified Code: D64.9 - Anemia, unspecified type (5) Diabetes: Jonnathan Louise MD R2 Feb 03, 2017 08:47 Nimisha Garcia MD Feb 03, 2017 16:31
[2017-02-03] MEDS: CITALOPRAM HYDROBROMIDE 20 MG TAB PO SCH (08:49)
[2017-02-03] MEDS: LACTOBACILLUS ACIDOPHILUS 1 GM PACKET PO SCH ×3 (08:49→18:17)
[2017-02-03] MEDS: SODIUM CHLORIDE 0.9% FLUSH 10 ML FLUSH IV FLUSH SCH ×2 (08:49→20:11)
[2017-02-03] MEDS: MULTIVITAMINS/MINERALS THERAPEUTIC TAB PO SCH ×2 (08:49→20:12)
[2017-02-03] MEDS: MUPIROCIN 2% CREAM 15 GM TOPICAL SCH ×2 (08:50→20:12)
[2017-02-03 12:00] VITALS: BP 123/67; PULSE 74; RESP 18; TEMP 97.2; O2SAT 98
[2017-02-03 16:00] VITALS: BP 129/67; PULSE 76; RESP 18; TEMP 97.6; O2SAT 96
[2017-02-03 20:00] VITALS: BP 131/67; PULSE 77; RESP 19; TEMP 97.8; O2SAT 98
[2017-02-03] MEDS: HYDROCORTISONE 2.5% CREAM 30 GM TOPICAL SCH (20:12)
[2017-02-03] MEDS: CHLORHEXIDINE GLUCONATE 2 % 1 PACK (2 CLOTHS) TOP SCH (20:12)
[2017-02-03] MEDS: ATORVASTATIN 20 MG TAB PO SCH (20:12)
[2017-02-03] MEDS: QUEtiapine FUMARATE 25 MG TAB PO SCH (20:12)
[2017-02-03] MEDS: FONDAPARINUX SODIUM 2.5 MG/0.5 ML SYRINGE SQ SCH (20:12)
[2017-02-03 23:28] VITALS: BP 135/73; PULSE 75; RESP 19; TEMP 97.4; O2SAT 98
[2017-02-04] MEDS: INSULIN ASPART SUPPLEMENTAL SCALE SQ SCH ×4 (05:40→20:50)
[2017-02-04 08:00] VITALS: BP 113/66; PULSE 66; RESP 18; TEMP 97.6; O2SAT 98
[2017-02-04] MEDS: CITALOPRAM HYDROBROMIDE 20 MG TAB PO SCH (08:40)
[2017-02-04] MEDS: LACTOBACILLUS ACIDOPHILUS 1 GM PACKET PO SCH ×3 (08:40→17:49)
[2017-02-04] MEDS: MUPIROCIN 2% CREAM 15 GM TOPICAL SCH ×2 (08:40→20:50)
[2017-02-04] MEDS: SODIUM CHLORIDE 0.9% FLUSH 10 ML FLUSH IV FLUSH SCH ×2 (08:40→20:49)
[2017-02-04] MEDS: MULTIVITAMINS/MINERALS THERAPEUTIC TAB PO SCH ×2 (08:40→20:49)
[2017-02-04 12:00] VITALS: BP 128/66; PULSE 73; RESP 18; TEMP 96.4; O2SAT 96
--- NOTE | 2017-02-04 14:44 | HHI.FPPN ---
Subjective Remarks No acute events overnight. Afebrile, vital signs stable. Patient states he is not yet ready to go home as he is still having difficulty getting around. He is not sure how he would be able to do so if he were discharged. (Mary Manning MD R3) Objective Vitals Vital Signs Date Time Temp Pulse Resp B/P Pulse Ox O2 Delivery O2 Flow Rate FiO2 02/04/17 12:00 96.4 73 18 128/66 96 02/04/17 08:00 97.6 66 18 113/66 98 02/03/17 23:28 97.4 75 19 135/73 98 02/03/17 20:00 97.8 77 19 131/67 98 02/03/17 16:00 97.6 76 18 129/67 96 I/O 02/03/17 02/03/17 02/03/17 02/04/17 02/04/17 02/04/17 07:00 15:00 23:00 07:00 15:00 23:00 Intake Total 480 ml 240 ml 360 ml 600 ml Output Total 725 ml 875 ml 800 ml Balance -245 ml -635 ml -440 ml 600 ml Intake Oral 480 ml 240 ml 360 ml 600 ml IV Total 0 ml Output Urine Total 725 ml 875 ml 800 ml # Voids 1 # Bowel Movements 1 0 2 0 (Mary Manning MD R3) Result Diagram: 02/03/1742802/03/17428 Objective Remarks GENERAL: NAD. SKIN: Status post left BKA. Incision clean/dry/intact. Sutures removed. HEAD: Atraumatic. Normocephalic. CARDIOVASCULAR: RRR RESPIRATORY: Clear to auscultation. Breath sounds equal bilaterally. No wheezes , rales, or rhonchi. GASTROINTESTINAL: Abdomen soft, non-tender, nondistended. No hepato-splenomegaly , or palpable masses. No guarding. MUSCULOSKELETAL: Status post left BKA. Incision clean/dry/intact and well healing. NEUROLOGICAL: Awake and alert. Cranial nerves grossly intact. PSYCH: Normal mood and affect Procedures Left foot ankle incision and drainage with partial resection of the fifth metatarsal head Left BKA (Mary Manning MD R3) A/P Assessment and Plan 56-year-old male with a past medical history of complicated type 2 diabetes presented meeting sepsis criteria with diabetic left foot wound. 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 Requested physical therapy to work with the patient twice a day Discharge Planning Patient cleared from orthopedic standpoint. Patient cleared for SNF with PT however his Medicaid will not cover this. He needs continued physical therapy and is currently not safe for discharge. [facility] has evaluated the patient and did not accept him. The patient will be discharged once he is able to care for himself safely with outpatient physical therapy. (Mary Manning MD R3) Attending Attestation Patient seen and examined Case reviewed and discussed Agree with plan of care as discussed with me and documented in the resident note. (Nimisha Garcia MD) Problem List: (1) Hypotension Status: Resolved Plan: Resolved. Hypotension likely related to decreased by mouth and activity. Encouraged patient to drink plenty of fluids. When transferring, encouraged patient to go slow. Stopped his HCTZ, nabor inhibitor, and amlodipine 10 mg. Restart if hypertensive. (2) TAYLOR (acute kidney injury) Status: Resolved Plan: Acute on chronic renal disease. Creatinine stable at 1.36 (baseline). DC IV fluids, encourage by mouth intake. Continue to monitor. (3) Tardive dyskinesia Status: Resolved Plan: Improving. Likely 2/2 antipsychotic. Not disturbing to patient but he likes to work on electronics. Patient seen by psychiatry, Ariel discontinued. He started citalopram and Seroquel per their recommendations. Much improved since changes in medications were made. (4) Hyperkalemia Status: Resolved Plan: Potassium 4.3 today. D/C Kayexalate as patient c/o diarrhea. (5) Diabetic foot ulcer Status: Chronic Plan: Status post BKA on 12/23/16 for diabetic foot ulcer with osteomyelitis. Antibiotic history is documented below. Patient cleared for rehabilitation, placement issues as above. Antibiotic history: Per infectious disease Augmentin 875 mg every 12 hours (started 01/02-01/06) Clindamycin IV (12/22-12/28) Zosyn also discontinued (12/22-12/26) Antibiotics per ID: Unasyn IV every 6 hours discontinued ( 12/26-01/01) (6) Skin rash Status: Resolved Plan: Resolved Likely was 2/2 antibiotic Augmentin (started 01/02-01/06) which is dc'd. Could also be related to pain medications (PO percocet was started 01/04-01/06). * Changed to Lortab, d/c Percocet * Hydrocortisone cream when necessary (7) Hypertension Status: Chronic Plan: BP medications as above. (8) Hyperlipidemia Status: Acute Plan: Labs from 12/11 show elevated LDL of 120. 10 year ASCVD risk score is 12% - recommendation is for a high-intensity statin * Started atorvastatin (9) Anemia Status: Chronic Plan: Stable. Hematology consulted. Status post transfusion 4. Anemia workup unremarkable. (10) Stage 1 decubitus ulcer in diabetic patient Status: Acute Plan: Notified 01/03 at 11 AM of stage I decubitus at the patient's sacrum. On breakdown of epidermis, Stage 2 ulcer. Wound care nursing consulted Offload areas of pressure per protocol Continue to work with physical therapy Soft mattress order Further orders per wound care (11) Diabetes Status: Chronic Plan: Hemoglobin A1c on 12/11 was 6.9 Sliding scale insulin while in hospital. Patient has had diarrhea on metformin, likely will need to be discontinued as an outpatient and put on glipizide (12) Social issues Status: Acute Plan: Case management consulted to assist with disposition. Patient has no one to help care for him at home and is currently not safe for discharge. Details as above. Consider transfer to [place]. (13) Anxiety and depression Status: Acute Plan: Continue home Abilify 5 mg by mouth daily and Celexa 20 mg by mouth daily -Psychiatry consulted: Diagnosed with dysthymia; he has appropriate follow-up with psychiatry services in the community (14) HIT (heparin-induced thrombocytopenia) Status: Resolved Plan: Hematology consult Serotonin release assay negative. HIT positive is likely a false positive result Continue to monitor platelets Patient has been started on fondaparinux per hematology Medical history: Heparin discontinued Argatroban discontinued per hematology (15) FEN/DVT PPX/GI PPX Status: Acute Plan: Fluids: None. Encouraged PO intake Electrolytes: Will monitor and replace as needed Nutrition: Diabetic diet DVT Prophylaxis: Fondaparinux per orthopedic surgery. Okay from hematology to be on heparin prophylactically because of false positive HIT. GI Prophylaxis: not rec at this time. (Mary Manning MD R3) Problem Qualifiers (1) Diabetic foot ulcer: Qualified Code: E11.621 - Diabetic ulcer of toe of left foot associated with type 2 diabetes mellitus, unspecified ulcer stage (2) Hypertension: Qualified Code: I10 - Essential hypertension (3) Hyperlipidemia: Qualified Code: E78.5 - Hyperlipidemia, unspecified hyperlipidemia type (4) Anemia: Qualified Code: D64.9 - Anemia, unspecified type (5) Diabetes: Mary Manning MD R3 Feb 04, 2017 14:44 Nimisha Garcia MD Feb 08, 2017 15:20
[2017-02-04 16:00] VITALS: BP 111/58; PULSE 79; RESP 18; TEMP 95.9; O2SAT 98
[2017-02-04 20:00] VITALS: BP 119/68; PULSE 91; RESP 18; TEMP 97.7; O2SAT 95
[2017-02-04] MEDS: QUEtiapine FUMARATE 25 MG TAB PO SCH (20:49)
[2017-02-04] MEDS: ATORVASTATIN 20 MG TAB PO SCH (20:49)
[2017-02-04] MEDS: HYDROCORTISONE 2.5% CREAM 30 GM TOPICAL SCH (20:50)
[2017-02-04] MEDS: FONDAPARINUX SODIUM 2.5 MG/0.5 ML SYRINGE SQ SCH (20:50)
[2017-02-04] MEDS: CHLORHEXIDINE GLUCONATE 2 % 1 PACK (2 CLOTHS) TOP SCH (20:51)
[2017-02-05 00:07] VITALS: BP 134/65; PULSE 73; RESP 19; TEMP 98.1; O2SAT 97
[2017-02-05] MEDS: INSULIN ASPART SUPPLEMENTAL SCALE SQ SCH ×4 (05:10→21:00)
[2017-02-05 08:00] VITALS: BP 114/63; PULSE 69; RESP 17; TEMP 97.8; O2SAT 97
[2017-02-05] MEDS: MUPIROCIN 2% CREAM 15 GM TOPICAL SCH ×2 (09:00→21:00)
[2017-02-05] MEDS: CITALOPRAM HYDROBROMIDE 20 MG TAB PO SCH (09:13)
[2017-02-05] MEDS: MULTIVITAMINS/MINERALS THERAPEUTIC TAB PO SCH ×2 (09:13→21:52)
[2017-02-05] MEDS: SODIUM CHLORIDE 0.9% FLUSH 10 ML FLUSH IV FLUSH SCH ×2 (09:13→21:00)
[2017-02-05] MEDS: LACTOBACILLUS ACIDOPHILUS 1 GM PACKET PO SCH ×3 (09:13→17:31)
--- NOTE | 2017-02-05 10:04 | HHI.FPPN ---
Subjective Remarks No acute events overnight. Afebrile, vital signs stable. Patient continues to work with physical therapy. Has no complaints at this time. (Mary Manning MD R3) Objective Vitals Vital Signs Date Time Temp Pulse Resp B/P Pulse Ox O2 Delivery O2 Flow Rate FiO2 02/05/17 08:00 97.8 69 17 114/63 97 02/05/17 00:07 98.1 73 19 134/65 97 02/04/17 20:00 97.7 91 18 119/68 95 02/04/17 16:00 95.9 79 18 111/58 98 02/04/17 16:00 95.9 79 18 111/58 98 02/04/17 12:00 96.4 73 18 128/66 96 I/O 02/04/17 02/04/17 02/04/17 02/05/17 02/05/17 02/05/17 07:00 15:00 23:00 07:00 15:00 23:00 Intake Total 360 ml 600 ml 360 ml 240 ml Output Total 800 ml 700 ml 800 ml Balance -440 ml 600 ml -340 ml -560 ml Intake Oral 360 ml 600 ml 360 ml 240 ml IV Total 0 ml Output Urine Total 800 ml 700 ml 800 ml # Voids 1 # Bowel Movements 2 0 1 0 (Mary Manning MD R3) Result Diagram: 02/03/1742802/03/17428 Objective Remarks GENERAL: NAD. SKIN: Status post left BKA. Incision clean/dry/intact. Sutures removed. HEAD: Atraumatic. Normocephalic. CARDIOVASCULAR: RRR RESPIRATORY: Clear to auscultation. Breath sounds equal bilaterally. No wheezes , rales, or rhonchi. GASTROINTESTINAL: Abdomen soft, non-tender, nondistended. No hepato-splenomegaly , or palpable masses. No guarding. MUSCULOSKELETAL: Status post left BKA. Incision clean/dry/intact and well healing. NEUROLOGICAL: Awake and alert. Cranial nerves grossly intact. PSYCH: Normal mood and affect Procedures Left foot ankle incision and drainage with partial resection of the fifth metatarsal head Left BKA (Mary Manning MD R3) A/P Assessment and Plan 56-year-old male with a past medical history of complicated type 2 diabetes presented meeting sepsis criteria with diabetic left foot wound. 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 Requested physical therapy to work with the patient twice a day Discharge Planning Patient cleared from orthopedic standpoint. Patient cleared for SNF with PT however his Medicaid will not cover this. He needs continued physical therapy and is currently not safe for discharge. [facility] has evaluated the patient and did not accept him. The patient will be discharged once he is able to care for himself safely with outpatient physical therapy. Case management continues to look for a Medicaid bed. (Mary Manning MD R3) Attending Attestation Patient seen and examined Case reviewed and discussed Agree with plan of care as discussed with me and documented in the resident note. (Nimisha Garcia MD) Problem List: (1) Hypotension Status: Resolved Plan: Resolved. Hypotension likely related to decreased by mouth and activity. Encouraged patient to drink plenty of fluids. When transferring, encouraged patient to go slow. Stopped his HCTZ, nabor inhibitor, and amlodipine 10 mg. Restart if hypertensive. (2) TAYLOR (acute kidney injury) Status: Resolved Plan: Acute on chronic renal disease. Creatinine stable at 1.36 (baseline). DC IV fluids, encourage by mouth intake. Continue to monitor. (3) Tardive dyskinesia Status: Resolved Plan: Improving. Likely 2/2 antipsychotic. Not disturbing to patient but he likes to work on electronics. Patient seen by psychiatryAriel discontinued. He started citalopram and Seroquel per their recommendations. Much improved since changes in medications were made. (4) Hyperkalemia Status: Resolved Plan: Potassium 4.3 today. D/C Kayexalate as patient c/o diarrhea. (5) Diabetic foot ulcer Status: Chronic Plan: Status post BKA on 12/23/16 for diabetic foot ulcer with osteomyelitis. Antibiotic history is documented below. Patient cleared for rehabilitation, placement issues as above. Antibiotic history: Per infectious disease Augmentin 875 mg every 12 hours (started 01/02-01/06) Clindamycin IV (12/22-12/28) Zosyn also discontinued (12/22-12/26) Antibiotics per ID: Unasyn IV every 6 hours discontinued ( 12/26-01/01) (6) Skin rash Status: Resolved Plan: Resolved Likely was 2/2 antibiotic Augmentin (started 01/02-01/06) which is dc'd. Could also be related to pain medications (PO percocet was started 01/04-01/06). * Changed to Lortab, d/c Percocet * Hydrocortisone cream when necessary (7) Hypertension Status: Chronic Plan: BP medications as above. (8) Hyperlipidemia Status: Acute Plan: Labs from 12/11 show elevated LDL of 120. 10 year ASCVD risk score is 12% - recommendation is for a high-intensity statin * Started atorvastatin (9) Anemia Status: Chronic Plan: Stable. Hematology consulted. Status post transfusion 4. Anemia workup unremarkable. (10) Stage 1 decubitus ulcer in diabetic patient Status: Acute Plan: Notified 01/03 at 11 AM of stage I decubitus at the patient's sacrum. On breakdown of epidermis, Stage 2 ulcer. Wound care nursing consulted Offload areas of pressure per protocol Continue to work with physical therapy Soft mattress order Further orders per wound care (11) Diabetes Status: Chronic Plan: Hemoglobin A1c on 12/11 was 6.9 Sliding scale insulin while in hospital. Patient has had diarrhea on metformin, likely will need to be discontinued as an outpatient and put on glipizide (12) Social issues Status: Acute Plan: Case management consulted to assist with disposition. Patient has no one to help care for him at home and is currently not safe for discharge. Details as above. Consider transfer to [place]. (13) Anxiety and depression Status: Acute Plan: Continue home Abilify 5 mg by mouth daily and Celexa 20 mg by mouth daily -Psychiatry consulted: Diagnosed with dysthymia; he has appropriate follow-up with psychiatry services in the community (14) HIT (heparin-induced thrombocytopenia) Status: Resolved Plan: Hematology consult Serotonin release assay negative. HIT positive is likely a false positive result Continue to monitor platelets Patient has been started on fondaparinux per hematology Medical history: Heparin discontinued Argatroban discontinued per hematology (15) FEN/DVT PPX/GI PPX Status: Acute Plan: Fluids: None. Encouraged PO intake Electrolytes: Will monitor and replace as needed Nutrition: Diabetic diet DVT Prophylaxis: Fondaparinux per orthopedic surgery. Okay from hematology to be on heparin prophylactically because of false positive HIT. GI Prophylaxis: not rec at this time. (Mary Manning MD R3) Problem Qualifiers (1) Diabetic foot ulcer: Qualified Code: E11.621 - Diabetic ulcer of toe of left foot associated with type 2 diabetes mellitus, unspecified ulcer stage (2) Hypertension: Qualified Code: I10 - Essential hypertension (3) Hyperlipidemia: Qualified Code: E78.5 - Hyperlipidemia, unspecified hyperlipidemia type (4) Anemia: Qualified Code: D64.9 - Anemia, unspecified type (5) Diabetes: Mary Manning MD R3 Feb 05, 2017 10:04 Nimisha Garcia MD Feb 08, 2017 15:22
[2017-02-05 12:00] VITALS: BP 153/75; PULSE 75; RESP 18; TEMP 95.4; O2SAT 99
[2017-02-05 16:00] VITALS: BP 128/60; PULSE 72; RESP 17; TEMP 98.5; O2SAT 96
[2017-02-05 20:00] VITALS: BP 112/68; PULSE 73; RESP 18; TEMP 97.9; O2SAT 99
[2017-02-05] MEDS: HYDROCORTISONE 2.5% CREAM 30 GM TOPICAL SCH (21:00)
[2017-02-05] MEDS: ATORVASTATIN 20 MG TAB PO SCH (21:52)
[2017-02-05] MEDS: QUEtiapine FUMARATE 25 MG TAB PO SCH (21:53)
[2017-02-05] MEDS: FONDAPARINUX SODIUM 2.5 MG/0.5 ML SYRINGE SQ SCH (21:53)
[2017-02-05] MEDS: CHLORHEXIDINE GLUCONATE 2 % 1 PACK (2 CLOTHS) TOP SCH (21:53)
[2017-02-06] VITALS: BP 125/72; PULSE 74; RESP 18; TEMP 97.8; O2SAT 98
[2017-02-06] MEDS: INSULIN ASPART SUPPLEMENTAL SCALE SQ SCH ×4 (05:46→21:00)
[2017-02-06 06:04] LABS: AUTOMATED NEUTROPHIL # 3.2 TH/MM3 (1.8-7.7); BASOPHIL % 0.6 % (0.0-2.0); EOSINOPHIL # 0.6 TH/MM3 (0-0.4); HEMATOCRIT 28.9 % (39.0-51.0); HEMO FLAGS DIFF FINAL; LYMPH % 32.9 % (9.0-44.0); LYMPHOCYTE # 2.4 TH/MM3 (1.0-4.8); MEAN CELL VOLUME 90.9 FL (80.0-100.0); MEAN CORPUSCULAR HEMOGLOBIN 30.7 PG (27.0-34.0); MEAN CORPUSCULAR HGB CONC 33.7 % (32.0-36.0); NEUT % 43.5 % (16.0-70.0); PLATELET COUNT 120 TH/MM3 (150-450); RED BLOOD COUNT 3.18 MIL/MM3 (4.50-5.90); RED CELL DISTRIBUTION WIDTH 18.2 % (11.6-17.2); WHITE BLOOD COUNT 7.3 TH/MM3 (4.0-11.0)
[2017-02-06] MEDS: LACTOBACILLUS ACIDOPHILUS 1 GM PACKET PO SCH ×3 (07:59→17:14)
[2017-02-06] MEDS: MULTIVITAMINS/MINERALS THERAPEUTIC TAB PO SCH ×2 (07:59→21:08)
[2017-02-06] MEDS: CITALOPRAM HYDROBROMIDE 20 MG TAB PO SCH (07:59)
[2017-02-06 08:00] VITALS: BP 111/58; PULSE 117; RESP 18; TEMP 101.1; O2SAT 96
[2017-02-06] MEDS: SODIUM CHLORIDE 0.9% FLUSH 10 ML FLUSH IV FLUSH SCH ×2 (08:00→21:00)
[2017-02-06] MEDS: MUPIROCIN 2% CREAM 15 GM TOPICAL SCH ×2 (08:00→21:00)
--- NOTE | 2017-02-06 10:45 | RADRPT ---
EXAM DATE/TIME: 02/06/2017 10:34 [facility] COMPARISON: CHEST SINGLE AP, December 21, 2016, 22:20. INDICATIONS : Patient is short of breath and states had a fever this morning. MEDICAL HISTORY : Hypertension. Ulcers. Polyuria. Diabetes. Foot ulcer. SURGICAL HISTORY : Left toe amputation. ENCOUNTER: Subsequent ACUITY: 3 days PAIN SCORE: 0/10 LOCATION: Bilateral chest FINDINGS: PA and lateral views of the chest demonstrate the lungs to be symmetrically aerated without evidence of mass, infiltrate or effusion. The cardiomediastinal contours are unremarkable. Osseous structure s are intact. CONCLUSION: No acute disease. Paramjit Bae MD on February 06, 2017 at 10:42 Board Certified Radiologist. This report was verified electronically.
[2017-02-06 12:00] VITALS: BP 95/54; PULSE 82; RESP 18; TEMP 97.4; O2SAT 98
--- NOTE | 2017-02-06 14:03 | HHI.FPPN ---
Subjective Remarks Patient with new fever to 101.1 this am. Denies feeling feverish, or having chills. Denies any new sputum production, burning with urination, or abdominal pain. (Jonnathan Louise MD R2) Objective Vitals Vital Signs Date Time Temp Pulse Resp B/P Pulse Ox O2 Delivery O2 Flow Rate FiO2 02/06/17 12:00 97.4 82 18 95/54 98 02/06/17 08:00 101.1 117 18 111/58 96 02/06/17 00:00 97.8 74 18 125/72 98 02/05/17 20:00 97.9 73 18 112/68 99 02/05/17 16:00 98.5 72 17 128/60 96 I/O 02/05/17 02/05/17 02/05/17 02/06/17 02/06/17 02/06/17 07:00 15:00 23:00 07:00 15:00 23:00 Intake Total 240 ml 700 ml 240 ml 240 ml Output Total 800 ml 800 ml 675 ml 1000 ml Balance -560 ml -100 ml -435 ml -760 ml Intake Oral 240 ml 700 ml 240 ml 240 ml IV Total 0 ml Output Urine Total 800 ml 800 ml 675 ml 1000 ml Stool Total 0 ml 0 ml # Bowel Movements 0 0 (Jonnathan Louise MD R2) Result Diagram: 02/06/17 0533 02/03/17 0429 Objective Remarks GENERAL: NAD. SKIN: Status post left BKA. Incision clean/dry/intact. Sutures removed. HEAD: Atraumatic. Normocephalic. CARDIOVASCULAR: RRR RESPIRATORY: Clear to auscultation. Breath sounds equal bilaterally. No wheezes , rales, or rhonchi. GASTROINTESTINAL: Abdomen soft, non-tender, nondistended. No hepato-splenomegaly , or palpable masses. No guarding. MUSCULOSKELETAL: Status post left BKA. Incision clean/dry/intact and well healing. NEUROLOGICAL: Awake and alert. Cranial nerves grossly intact. PSYCH: Normal mood and affect Procedures Left foot ankle incision and drainage with partial resection of the fifth metatarsal head Left BKA (Jonnathan Louise MD R2) A/P Assessment and Plan 56-year-old male with a past medical history of complicated type 2 diabetes presented meeting sepsis criteria with diabetic left foot wound. 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 Requested physical therapy to work with the patient twice a day Discharge Planning Patient cleared from orthopedic standpoint. Patient cleared for SNF with PT however his Medicaid will not cover this. He needs continued physical therapy and is currently not safe for discharge. [facility] has evaluated the patient and did not accept him. The patient will be discharged once he is able to care for himself safely with outpatient physical therapy. Case management continues to look for a Medicaid bed. (Jonnathan Louise MD R2) Attending Attestation Patient seen and examined Case reviewed and discussed Agree with plan of care as discussed with me and documented in the resident note. (Nimisha Garcia MD) Problem List: (1) Fever Status: Resolved Plan: Fever of 101.1. Septic workup as below: Chest x-ray PA and lateral Urine cultures Blood cultures There has been no increase in WBC or signs of infection on physical exam. (2) Hypotension Status: Resolved Plan: Resolved. Hypotension likely related to decreased by mouth and activity. Encouraged patient to drink plenty of fluids. When transferring, encouraged patient to go slow. Stopped his HCTZ, nabor inhibitor, and amlodipine 10 mg. Restart if hypertensive. (3) TAYLOR (acute kidney injury) Status: Resolved Plan: Acute on chronic renal disease. Creatinine stable at 1.36 (baseline). DC IV fluids, encourage by mouth intake. Continue to monitor. (4) Tardive dyskinesia Status: Resolved Plan: Improving. Likely 2/2 antipsychotic. Not disturbing to patient but he likes to work on electronics. Patient seen by psychiatry, Abilify discontinued. He started citalopram and Seroquel per their recommendations. Much improved since changes in medications were made. (5) Hyperkalemia Status: Resolved Plan: Potassium 4.3 today. D/C Kayexalate as patient c/o diarrhea. (6) Diabetic foot ulcer Status: Chronic Plan: Status post BKA on 12/23/16 for diabetic foot ulcer with osteomyelitis. Antibiotic history is documented below. Patient cleared for rehabilitation, placement issues as above. Antibiotic history: Per infectious disease Augmentin 875 mg every 12 hours (started 01/02-01/06) Clindamycin IV (12/22-12/28) Zosyn also discontinued (12/22-12/26) Antibiotics per ID: Unasyn IV every 6 hours discontinued ( 12/26-01/01) (7) Skin rash Status: Resolved Plan: Resolved Likely was 2/2 antibiotic Augmentin (started 01/02-01/06) which is dc'd. Could also be related to pain medications (PO percocet was started 01/04-01/06). * Changed to Lortab, d/c Percocet * Hydrocortisone cream when necessary (8) Hypertension Status: Chronic Plan: BP medications as above. (9) Hyperlipidemia Status: Acute Plan: Labs from 12/11 show elevated LDL of 120. 10 year ASCVD risk score is 12% - recommendation is for a high-intensity statin * Started atorvastatin (10) Anemia Status: Chronic Plan: Stable. Hematology consulted. Status post transfusion 4. Anemia workup unremarkable. (11) Stage 1 decubitus ulcer in diabetic patient Status: Acute Plan: Notified 01/03 at 11 AM of stage I decubitus at the patient's sacrum. On breakdown of epidermis, Stage 2 ulcer. Wound care nursing consulted Offload areas of pressure per protocol Continue to work with physical therapy Soft mattress order Further orders per wound care (12) Diabetes Status: Chronic Plan: Hemoglobin A1c on 12/11 was 6.9 Sliding scale insulin while in hospital. Patient has had diarrhea on metformin, likely will need to be discontinued as an outpatient and put on glipizide (13) Social issues Status: Acute Plan: Case management consulted to assist with disposition. Patient has no one to help care for him at home and is currently not safe for discharge. Details as above. Consider transfer to [place]. (14) Anxiety and depression Status: Acute Plan: Continue home Abilify 5 mg by mouth daily and Celexa 20 mg by mouth daily -Psychiatry consulted: Diagnosed with dysthymia; he has appropriate follow-up with psychiatry services in the community (15) HIT (heparin-induced thrombocytopenia) Status: Resolved Plan: Hematology consult Serotonin release assay negative. HIT positive is likely a false positive result Continue to monitor platelets Patient has been started on fondaparinux per hematology Medical history: Heparin discontinued Argatroban discontinued per hematology (16) FEN/DVT PPX/GI PPX Status: Acute Plan: Fluids: None. Encouraged PO intake Electrolytes: Will monitor and replace as needed Nutrition: Diabetic diet DVT Prophylaxis: Fondaparinux per orthopedic surgery. Okay from hematology to be on heparin prophylactically because of false positive HIT. GI Prophylaxis: not rec at this time. (Jonnathan Louise MD R2) Problem Qualifiers (1) Diabetic foot ulcer: Qualified Code: E11.621 - Diabetic ulcer of toe of left foot associated with type 2 diabetes mellitus, unspecified ulcer stage (2) Hypertension: Qualified Code: I10 - Essential hypertension (3) Hyperlipidemia: Qualified Code: E78.5 - Hyperlipidemia, unspecified hyperlipidemia type (4) Anemia: Qualified Code: D64.9 - Anemia, unspecified type (5) Diabetes: Jonnathan Louise MD R2 Feb 06, 2017 14:03 Nimisha Garcia MD Feb 08, 2017 15:22
[2017-02-06 16:00] VITALS: BP 110/56; PULSE 88; RESP 18; TEMP 96.9; O2SAT 97
[2017-02-06 20:00] VITALS: BP 110/69; PULSE 72; RESP 18; TEMP 97.8; O2SAT 100
[2017-02-06] MEDS: HYDROCORTISONE 2.5% CREAM 30 GM TOPICAL SCH (21:00)
[2017-02-06] MEDS: ATORVASTATIN 20 MG TAB PO SCH (21:08)
[2017-02-06] MEDS: FONDAPARINUX SODIUM 2.5 MG/0.5 ML SYRINGE SQ SCH (21:08)
[2017-02-06] MEDS: QUEtiapine FUMARATE 25 MG TAB PO SCH (21:08)
[2017-02-06] MEDS: CHLORHEXIDINE GLUCONATE 2 % 1 PACK (2 CLOTHS) TOP SCH (21:09)
[2017-02-07] VITALS: BP 132/95; PULSE 71; RESP 18; TEMP 97.4; O2SAT 98
[2017-02-07] MEDS: INSULIN ASPART SUPPLEMENTAL SCALE SQ SCH ×4 (06:51→21:00)
[2017-02-07] MEDS: CITALOPRAM HYDROBROMIDE 20 MG TAB PO SCH (07:57)
[2017-02-07] MEDS: LACTOBACILLUS ACIDOPHILUS 1 GM PACKET PO SCH ×3 (07:57→16:51)
[2017-02-07] MEDS: MUPIROCIN 2% CREAM 15 GM TOPICAL SCH ×2 (07:57→21:00)
[2017-02-07] MEDS: MULTIVITAMINS/MINERALS THERAPEUTIC TAB PO SCH ×2 (07:57→21:08)
[2017-02-07] MEDS: SODIUM CHLORIDE 0.9% FLUSH 10 ML FLUSH IV FLUSH SCH ×2 (07:58→21:09)
[2017-02-07 08:00] VITALS: BP 105/60; PULSE 72; RESP 17; TEMP 96.7; O2SAT 97
--- NOTE | 2017-02-07 08:36 | HHI.FPPN ---
Subjective Remarks No acute events overnight. Afebrile, vital signs stable. Patient denies any subjective fever/chills. States he feels well. Nice chest pain or shortness of breath. (Mary Manning MD R3) Objective Vitals Vital Signs Date Time Temp Pulse Resp B/P Pulse Ox O2 Delivery O2 Flow Rate FiO2 02/07/17 00:00 97.4 71 18 132/95 98 02/06/17 20:00 97.8 72 18 110/69 100 02/06/17 16:00 96.9 88 18 110/56 97 02/06/17 12:00 97.4 82 18 95/54 98 I/O 02/06/17 02/06/17 02/06/17 02/07/17 02/07/17 02/07/17 07:00 15:00 23:00 07:00 15:00 23:00 Intake Total 240 ml 480 ml 240 ml 240 ml Output Total 1000 ml 600 ml 0 ml Balance -760 ml 480 ml -360 ml 240 ml Intake Oral 240 ml 480 ml 240 ml 240 ml IV Total 0 ml Output Urine Total 1000 ml 600 ml 0 ml Stool Total 0 ml 0 ml # Voids 1 # Bowel Movements 0 (Mary Manning MD R3) Result Diagram: 02/06/17 0533 02/03/17 0429 Objective Remarks GENERAL: NAD. SKIN: Status post left BKA. Incision clean/dry/intact. Sutures removed. HEAD: Atraumatic. Normocephalic. CARDIOVASCULAR: RRR RESPIRATORY: Clear to auscultation. Breath sounds equal bilaterally. No wheezes , rales, or rhonchi. GASTROINTESTINAL: Abdomen soft, non-tender, nondistended. No hepato-splenomegaly , or palpable masses. No guarding. MUSCULOSKELETAL: Status post left BKA. Incision clean/dry/intact and well healing. NEUROLOGICAL: Awake and alert. Cranial nerves grossly intact. PSYCH: Normal mood and affect Procedures Left foot ankle incision and drainage with partial resection of the fifth metatarsal head Left BKA (Mary Manning MD R3) A/P Assessment and Plan 56-year-old male with a past medical history of complicated type 2 diabetes presented meeting sepsis criteria with diabetic left foot wound. 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 Requested physical therapy to work with the patient twice a day Discharge Planning Patient cleared from orthopedic standpoint. Patient cleared for SNF with PT however his Medicaid will not cover this. He needs continued physical therapy and is currently not safe for discharge. [facility] has evaluated the patient and did not accept him. The patient will be discharged once he is able to care for himself safely with outpatient physical therapy. Case management continues to look for a Medicaid bed. (Mary Manning MD R3) Attending Attestation Patient seen and examined Case reviewed and discussed Agree with plan of care as discussed with me and documented in the resident note. (Nimisha Garcia MD) Problem List: (1) Fever Status: Resolved Plan: Fever of 101.1 on 02/06. Septic workup as below: Chest x-ray PA and lateral within normal limits Urine cultures pending Blood cultures pending There has been no increase in WBC or signs of infection on physical exam. Repeat CBC and panculture if febrile again. (2) Hypotension Status: Resolved Plan: Resolved. Hypotension likely related to decreased by mouth and activity. Encouraged patient to drink plenty of fluids. When transferring, encouraged patient to go slow. Stopped his HCTZ, nabor inhibitor, and amlodipine 10 mg. Restart if hypertensive. (3) TAYLOR (acute kidney injury) Status: Resolved Plan: Acute on chronic renal disease. Creatinine stable. DC IV fluids, encourage by mouth intake. Continue to monitor. (4) Tardive dyskinesia Status: Resolved Plan: Improving. Likely 2/2 antipsychotic. Not disturbing to patient but he likes to work on electronics. Patient seen by psychiatry, Abilify discontinued. He started citalopram and Seroquel per their recommendations. Much improved since changes in medications were made. (5) Hyperkalemia Status: Resolved Plan: Potassium 4.3 today. D/C Kayexalate as patient c/o diarrhea. (6) Diabetic foot ulcer Status: Chronic Plan: Status post BKA on 12/23/16 for diabetic foot ulcer with osteomyelitis. Antibiotic history is documented below. Patient cleared for rehabilitation, placement issues as above. Antibiotic history: Per infectious disease Augmentin 875 mg every 12 hours (started 01/02-01/06) Clindamycin IV (12/22-12/28) Zosyn also discontinued (12/22-12/26) Antibiotics per ID: Unasyn IV every 6 hours discontinued ( 12/26-01/01) (7) Skin rash Status: Resolved Plan: Resolved Likely was 2/2 antibiotic Augmentin (started 01/02-01/06) which is dc'd. Could also be related to pain medications (PO percocet was started 01/04-01/06). * Changed to Lortab, d/c Percocet * Hydrocortisone cream when necessary (8) Hypertension Status: Chronic Plan: BP medications as above. (9) Hyperlipidemia Status: Acute Plan: Labs from 12/11 show elevated LDL of 120. 10 year ASCVD risk score is 12% - recommendation is for a high-intensity statin * Started atorvastatin (10) Anemia Status: Chronic Plan: Stable. Hematology consulted. Status post transfusion 4. Anemia workup unremarkable. (11) Stage 1 decubitus ulcer in diabetic patient Status: Acute Plan: Notified 01/03 at 11 AM of stage I decubitus at the patient's sacrum. On breakdown of epidermis, Stage 2 ulcer. Wound care nursing consulted Offload areas of pressure per protocol Continue to work with physical therapy Soft mattress order Further orders per wound care (12) Diabetes Status: Chronic Plan: Hemoglobin A1c on 12/11 was 6.9 Sliding scale insulin while in hospital. Patient has had diarrhea on metformin, likely will need to be discontinued as an outpatient and put on glipizide (13) Social issues Status: Acute Plan: Case management consulted to assist with disposition. Patient has no one to help care for him at home and is currently not safe for discharge. Details as above. Consider transfer to [place]. (14) Anxiety and depression Status: Acute Plan: Continue home Abilify 5 mg by mouth daily and Celexa 20 mg by mouth daily -Psychiatry consulted: Diagnosed with dysthymia; he has appropriate follow-up with psychiatry services in the community (15) HIT (heparin-induced thrombocytopenia) Status: Resolved Plan: Hematology consult Serotonin release assay negative. HIT positive is likely a false positive result Continue to monitor platelets Patient has been started on fondaparinux per hematology Medical history: Heparin discontinued Argatroban discontinued per hematology (16) FEN/DVT PPX/GI PPX Status: Acute Plan: Fluids: None. Encouraged PO intake Electrolytes: Will monitor and replace as needed Nutrition: Diabetic diet DVT Prophylaxis: Fondaparinux per orthopedic surgery. Okay from hematology to be on heparin prophylactically because of false positive HIT. GI Prophylaxis: not rec at this time. (Mary Manning MD R3) Problem Qualifiers (1) Diabetic foot ulcer: Qualified Code: E11.621 - Diabetic ulcer of toe of left foot associated with type 2 diabetes mellitus, unspecified ulcer stage (2) Hypertension: Qualified Code: I10 - Essential hypertension (3) Hyperlipidemia: Qualified Code: E78.5 - Hyperlipidemia, unspecified hyperlipidemia type (4) Anemia: Qualified Code: D64.9 - Anemia, unspecified type (5) Diabetes: Mary Manning MD R3 Feb 07, 2017 08:36 Nimisha Garcia MD Feb 08, 2017 15:21
[2017-02-07 10:13] LABS: BACTERIA, URINE MANY /hpf; BLOOD, URINE TRACE (NEG); GLUCOSE,URINE NEG (NEG); KETONE, URINE NEG (NEG); SQUAMOUS EPITHELIAL CELL URINE <1 /hpf (0-5); URINE COLOR YELLOW (YELLW/STRAW)
[2017-02-07 10:20] LABS: COMMENT (UR) CULTURE INDICATED; CULTURE IF INDICATED CULTURE INDICATED; NITRITE,URINE POS (NEG)
--- NOTE | 2017-02-07 10:58 | HHI.PR ---
Addendum to Inpatient Note Addendum Reason: Additional Documentation Additional Information Family medicine off service note: 56-year-old male status post BKA for diabetic foot ulcer remains in the hospital as he is unable to have placement in rehabilitation. The patient was admitted initially with sepsis, treated with antibiotics per infectious disease and underwent BKA without complications. His insurance does not allow for coverage of rehabilitation and we are currently working on placement. Since his procedure he has been hyperkalemic on occasion, responding to Kayexalate. He also recently was febrile with blood cultures negative 1 day and urine culture pending. No additional fevers. Vital signs stable. Mary Manning MD R3 Feb 07, 2017 10:58
[2017-02-07 12:00] VITALS: BP 105/57; PULSE 83; RESP 17; TEMP 96.2; O2SAT 95
[2017-02-07] MEDS: cefTRIAXone INJ 1,000 MG in SODIUM CHLORIDE 0.9% INJ 100 ML IV SCH (13:11)
[2017-02-07 16:00] VITALS: BP 103/56; PULSE 80; RESP 17; TEMP 97.7; O2SAT 99
[2017-02-07 20:00] VITALS: BP 116/61; PULSE 78; RESP 20; TEMP 97.3; O2SAT 98
[2017-02-07] MEDS: HYDROCORTISONE 2.5% CREAM 30 GM TOPICAL SCH (21:00)
[2017-02-07] MEDS: ATORVASTATIN 20 MG TAB PO SCH (21:08)
[2017-02-07] MEDS: QUEtiapine FUMARATE 25 MG TAB PO SCH (21:08)
[2017-02-07] MEDS: FONDAPARINUX SODIUM 2.5 MG/0.5 ML SYRINGE SQ SCH (21:08)
[2017-02-08] VITALS: BP 119/61; PULSE 75; RESP 20; TEMP 97.4; O2SAT 98
[2017-02-08] MEDS: CHLORHEXIDINE GLUCONATE 2 % 1 PACK (2 CLOTHS) TOP SCH ×2 (04:00→19:53)
[2017-02-08] MEDS: INSULIN ASPART SUPPLEMENTAL SCALE SQ SCH ×4 (07:00→19:55)
[2017-02-08 08:00] VITALS: BP 127/66; PULSE 69; RESP 17; TEMP 97.4; O2SAT 99
[2017-02-08] MEDS: CITALOPRAM HYDROBROMIDE 20 MG TAB PO SCH (08:05)
[2017-02-08] MEDS: MULTIVITAMINS/MINERALS THERAPEUTIC TAB PO SCH ×2 (08:05→19:53)
[2017-02-08] MEDS: SODIUM CHLORIDE 0.9% FLUSH 10 ML FLUSH IV FLUSH SCH ×2 (08:06→19:52)
[2017-02-08] MEDS: LACTOBACILLUS ACIDOPHILUS 1 GM PACKET PO SCH ×3 (08:07→17:50)
[2017-02-08] MEDS: MUPIROCIN 2% CREAM 15 GM TOPICAL SCH ×2 (08:11→19:53)
[2017-02-08 12:00] VITALS: BP 120/65; PULSE 76; RESP 17; TEMP 98.4; O2SAT 98
[2017-02-08] MEDS: cefTRIAXone INJ 1,000 MG in SODIUM CHLORIDE 0.9% INJ 100 ML IV SCH (13:05)
--- NOTE | 2017-02-08 14:47 | HHI.FPPN ---
Subjective Remarks No acute events overnight. Afebrile, vital signs stable. Patient with no complaints this morning. Continues to work with physical therapy. (Mary Manning MD R3) Objective Vitals Vital Signs Date Time Temp Pulse Resp B/P Pulse Ox O2 Delivery O2 Flow Rate FiO2 02/08/17 12:00 98.4 76 17 120/65 98 02/08/17 08:00 97.4 69 17 127/66 99 02/08/17 00:00 97.4 75 20 119/61 98 02/07/17 20:00 97.3 78 20 116/61 98 02/07/17 16:00 97.7 80 17 103/56 99 I/O 02/07/17 02/07/17 02/07/17 02/08/17 02/08/17 02/08/17 07:00 15:00 23:00 07:00 15:00 23:00 Intake Total 240 ml 820 ml 240 ml 120 ml 100 ml Output Total 0 ml 700 ml 1000 ml 775 ml Balance 240 ml 120 ml -760 ml -655 ml 100 ml Intake Oral 240 ml 720 ml 240 ml 120 ml IV Total 100 ml 100 ml Output Urine Total 0 ml 700 ml 1000 ml 775 ml Stool Total 0 ml 0 ml # Voids 0 # Bowel Movements 0 (Mary Manning MD R3) Result Diagram: 02/06/17 0533 Objective Remarks GENERAL: NAD. SKIN: Status post left BKA. Incision clean/dry/intact. Sutures removed. HEAD: Atraumatic. Normocephalic. CARDIOVASCULAR: RRR RESPIRATORY: Clear to auscultation. Breath sounds equal bilaterally. No wheezes , rales, or rhonchi. GASTROINTESTINAL: Abdomen soft, non-tender, nondistended. No hepato-splenomegaly , or palpable masses. No guarding. MUSCULOSKELETAL: Status post left BKA. Incision clean/dry/intact and well healing. NEUROLOGICAL: Awake and alert. Cranial nerves grossly intact. PSYCH: Normal mood and affect Procedures Left foot ankle incision and drainage with partial resection of the fifth metatarsal head Left BKA (Mary Manning MD R3) A/P Assessment and Plan 56-year-old male with a past medical history of complicated type 2 diabetes presented meeting sepsis criteria with diabetic left foot wound. 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 Requested physical therapy to work with the patient twice a day Discharge Planning Patient cleared from orthopedic standpoint. Patient cleared for SNF with PT however his Medicaid will not cover this. He needs continued physical therapy and is currently not safe for discharge. [facility] has evaluated the patient and did not accept him. The patient will be discharged once he is able to care for himself safely with outpatient physical therapy. Case management continues to look for a Medicaid bed. (Mary Manning MD R3) Attending Attestation Patient seen and examined Case reviewed and discussed Agree with plan of care as discussed with me and documented in the resident note. (Nimisha Garcia MD) Problem List: (1) Fever Status: Resolved Plan: Fever of 101.1 on 02/06. Septic workup as below: Chest x-ray PA and lateral within normal limits Urine cultures pending. UA showed UTI with large leukocyte esterase and positive nitrites. Treatment for UTI with Rocephin 5-7 days. Blood cultures pending There has been no increase in WBC or signs of infection on physical exam. Repeat CBC and panculture if febrile again. (2) Hypotension Status: Resolved Plan: Resolved. Hypotension likely related to decreased by mouth and activity. Encouraged patient to drink plenty of fluids. When transferring, encouraged patient to go slow. Stopped his HCTZ, nabor inhibitor, and amlodipine 10 mg. Restart if hypertensive. (3) TALYOR (acute kidney injury) Status: Resolved Plan: Acute on chronic renal disease. Creatinine stable. DC IV fluids, encourage by mouth intake. Continue to monitor. (4) Tardive dyskinesia Status: Resolved Plan: Improving. Likely 2/2 antipsychotic. Not disturbing to patient but he likes to work on electronics. Patient seen by psychiatry, Abilify discontinued. He started citalopram and Seroquel per their recommendations. Much improved since changes in medications were made. (5) Hyperkalemia Status: Resolved Plan: Resolved. Continue to monitor periodically. (6) Diabetic foot ulcer Status: Chronic Plan: Status post BKA on 12/23/16 for diabetic foot ulcer with osteomyelitis. Antibiotic history is documented below. Patient cleared for rehabilitation, placement issues as above. Antibiotic history: Per infectious disease Augmentin 875 mg every 12 hours (started 01/02-01/06) Clindamycin IV (12/22-12/28) Zosyn also discontinued (12/22-12/26) Antibiotics per ID: Unasyn IV every 6 hours discontinued ( 12/26-01/01) (7) Skin rash Status: Resolved Plan: Resolved Likely was 2/ antibiotic Augmentin (started 01/02-01/06) which is dc'd. Could also be related to pain medications (PO percocet was started 01/04-01/06). * Changed to Lortab, d/c Percocet * Hydrocortisone cream when necessary (8) Hypertension Status: Chronic Plan: BP medications as above. (9) Hyperlipidemia Status: Acute Plan: Labs from 12/11 show elevated LDL of 120. 10 year ASCVD risk score is 12% - recommendation is for a high-intensity statin * Started atorvastatin (10) Thrombocytopenia Status: Acute Plan: Hematology consult. Continue to monitor. HIT antibody positive; see HIT problem Heparin discontinued (11) Anemia Status: Chronic Plan: Stable. Hematology consulted. Status post transfusion 4. Anemia workup unremarkable. (12) Stage 1 decubitus ulcer in diabetic patient Status: Acute Plan: Notified 01/03 at 11 AM of stage I decubitus at the patient's sacrum. On breakdown of epidermis, Stage 2 ulcer. Wound care nursing consulted Offload areas of pressure per protocol Continue to work with physical therapy Soft mattress order Further orders per wound care (13) Diabetes Status: Chronic Plan: Hemoglobin A1c on 12/11 was 6.9 Sliding scale insulin while in hospital. Patient has had diarrhea on metformin, likely will need to be discontinued as an outpatient and put on glipizide (14) Social issues Status: Acute Plan: Case management consulted to assist with disposition. Patient has no one to help care for him at home and is currently not safe for discharge. Details as above. Consider transfer to [place]. (15) Anxiety and depression Status: Acute Plan: Continue home Abilify 5 mg by mouth daily and Celexa 20 mg by mouth daily -Psychiatry consulted: Diagnosed with dysthymia; he has appropriate follow-up with psychiatry services in the community (16) HIT (heparin-induced thrombocytopenia) Status: Resolved Plan: Hematology consult Serotonin release assay negative. HIT positive is likely a false positive result Continue to monitor platelets Patient has been started on fondaparinux per hematology Medical history: Heparin discontinued Argatroban discontinued per hematology (17) FEN/DVT PPX/GI PPX Status: Acute Plan: Fluids: None. Encouraged PO intake Electrolytes: Will monitor and replace as needed Nutrition: Diabetic diet DVT Prophylaxis: Fondaparinux per orthopedic surgery. Okay from hematology to be on heparin prophylactically because of false positive HIT. GI Prophylaxis: not rec at this time. (Mary Manning MD R3) Problem Qualifiers (1) Diabetic foot ulcer: Qualified Code: E11.621 - Diabetic ulcer of toe of left foot associated with type 2 diabetes mellitus, unspecified ulcer stage (2) Hypertension: Qualified Code: I10 - Essential hypertension (3) Hyperlipidemia: Qualified Code: E78.5 - Hyperlipidemia, unspecified hyperlipidemia type (4) Anemia: Qualified Code: D64.9 - Anemia, unspecified type (5) Diabetes: Mary Manning MD R3 Feb 08, 2017 14:47 Nimisha Garcia MD Feb 08, 2017 15:21
[2017-02-08 16:00] VITALS: BP 129/66; PULSE 82; RESP 17; TEMP 96.5; O2SAT 97
[2017-02-08] MEDS: ATORVASTATIN 20 MG TAB PO SCH (19:52)
[2017-02-08] MEDS: QUEtiapine FUMARATE 25 MG TAB PO SCH (19:53)
[2017-02-08] MEDS: HYDROCORTISONE 2.5% CREAM 30 GM TOPICAL SCH (19:53)
[2017-02-08] MEDS: FONDAPARINUX SODIUM 2.5 MG/0.5 ML SYRINGE SQ SCH (19:53)
[2017-02-08 20:00] VITALS: BP 127/68; PULSE 98; RESP 19; TEMP 97.4; O2SAT 100
[2017-02-09] VITALS: BP 136/68; PULSE 74; RESP 19; TEMP 96.2; O2SAT 97
[2017-02-09 04:00] VITALS: BP 90/56; PULSE 104; RESP 18; TEMP 97.6; O2SAT 91
[2017-02-09] MEDS: INSULIN ASPART SUPPLEMENTAL SCALE SQ SCH ×4 (05:50→20:42)
[2017-02-09 06:49] LABS: BICARBONATE 17.5 MEQ/L (21.0-32.0); POTASSIUM 4.7 MEQ/L (3.5-5.1)
--- NOTE | 2017-02-09 07:17 | HHI.FPPN ---
Subjective Remarks Patient is doing well this morning. Continues to work with physical therapy. He is interested in talking to orthopedics about his prosthetic. He would also like to be taken off low-sodium diet. Otherwise he is doing fine with no complaints. Denies fever, chills, nausea, vomiting, shortness of breath. ( Freddie Barahona MD R2) Objective Vitals Vital Signs Date Time Temp Pulse Resp B/P Pulse Ox O2 Delivery O2 Flow Rate FiO2 02/09/17 04:00 02/09/17 00:00 96.2 74 19 136/68 97 02/08/17 20:00 97.4 98 19 127/68 100 02/08/17 16:00 96.5 82 17 129/66 97 02/08/17 12:00 98.4 76 17 120/65 98 02/08/17 08:00 97.4 69 17 127/66 99 I/O 02/08/17 02/08/17 02/08/17 02/09/17 02/09/17 02/09/17 07:00 15:00 23:00 07:00 15:00 23:00 Intake Total 120 ml 820 ml 240 ml 360 ml Output Total 775 ml 575 ml 700 ml 1100 ml Balance -655 ml 245 ml -460 ml -740 ml Intake Oral 120 ml 720 ml 240 ml 360 ml IV Total 100 ml Output Urine Total 775 ml 575 ml 700 ml 1100 ml Stool Total 0 ml # Bowel Movements 0 0 0 (Freddie Barahona MD R2) Result Diagram: 02/06/17 0533 02/09/17 0522 Objective Remarks GENERAL: NAD. SKIN: Status post left BKA. Incision clean/dry/intact. Sutures removed. HEAD: Atraumatic. Normocephalic. CARDIOVASCULAR: RRR RESPIRATORY: Clear to auscultation. Breath sounds equal bilaterally. No wheezes , rales, or rhonchi. GASTROINTESTINAL: Abdomen soft, non-tender, nondistended. No hepato-splenomegaly , or palpable masses. No guarding. MUSCULOSKELETAL: Status post left BKA. Incision clean/dry/intact and well healing. NEUROLOGICAL: Awake and alert. Cranial nerves grossly intact. PSYCH: Normal mood and affect Procedures Left foot ankle incision and drainage with partial resection of the fifth metatarsal head Left BKA (Freddie Barahona MD R2) A/P Assessment and Plan 56-year-old male with a past medical history of complicated type 2 diabetes presented meeting sepsis criteria with diabetic left foot wound. 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 Requested physical therapy to work with the patient twice a day Discharge Planning Patient cleared from orthopedic standpoint. Patient cleared for SNF with PT however his Medicaid will not cover this. He needs continued physical therapy and is currently not safe for discharge. [facility] has evaluated the patient and did not accept him. The patient will be discharged once he is able to care for himself safely with outpatient physical therapy. Case management continues to look for a Medicaid bed. (Freddie Barahona MD R2) Attending Attestation Patient seen and examined. Case reviewed and discussed with the resident team. Agree with plan of care as discussed with me and documented in the resident note. Discussed with Mr Botello that he is participating well in PT. He now feels he can do exercise well and for hours a day so will reappraise his rehab chances ( Brigid Lenz MD) Problem List: (1) UTI (urinary tract infection) Status: Acute Plan: Urine culture growing gram-negative rods Continue ceftriaxone for 5-7 days. Started 02/07 (2) TAYLOR (acute kidney injury) Status: Resolved Plan: Acute on chronic renal disease. Creatinine stable. DC IV fluids, encourage by mouth intake. Continue to monitor. (3) Tardive dyskinesia Status: Resolved Plan: Improving. Likely 2/2 antipsychotic. Not disturbing to patient but he likes to work on electronics. Patient seen by psychiatry, Abilify discontinued. He started citalopram and Seroquel per their recommendations. Much improved since changes in medications were made. 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 Antibiotic history is documented below. Patient cleared for rehabilitation, placement issues as above. Antibiotic history: Per infectious disease Augmentin 875 mg every 12 hours (started 01/02-01/06) Clindamycin IV (12/22-12/28) Zosyn also discontinued (12/22-12/26) Antibiotics per ID: Unasyn IV every 6 hours discontinued ( 12/26-01/01) (5) Hypertension Status: Chronic Plan: Currently resolved off his blood pressure medications. Patient was on hydrochlorothiazide, SUMMER inhibitor, and amlodipine. We'll resume medications when necessary increased blood pressure. (6) Hyperlipidemia Status: Chronic Plan: Labs from 12/11 show elevated LDL of 120. 10 year ASCVD risk score is 12% - recommendation is for a high-intensity statin * Started atorvastatin (7) Thrombocytopenia Status: Acute Plan: Hematology consult. Continue to monitor. HIT antibody positive; see HIT problem Heparin discontinued (8) Anemia Status: Chronic Plan: Stable. Hematology consulted. Status post transfusion 4. Anemia workup unremarkable. (9) Stage 1 decubitus ulcer in diabetic patient Status: Acute Plan: Notified 01/03 at 11 AM of stage I decubitus at the patient's sacrum. On breakdown of epidermis, Stage 2 ulcer. Wound care nursing consulted Offload areas of pressure per protocol Continue to work with physical therapy Soft mattress order Further orders per wound care (10) Diabetes Status: Chronic Plan: Hemoglobin A1c on 12/11 was 6.9 Sliding scale insulin while in hospital. Patient has had diarrhea on metformin, likely will need to be discontinued as an outpatient and put on glipizide (11) Social issues Status: Acute Plan: Case management consulted to assist with disposition. Patient has no one to help care for him at home and is currently not safe for discharge. Details as above. Consider transfer to [place]. (12) Anxiety and depression Status: Acute Plan: Abilify discontinued. Continue Celexa 20 and Seroquel per psychiatry -Psychiatry consulted: Diagnosed with dysthymia; he has appropriate follow-up with psychiatry services in the community (13) HIT (heparin-induced thrombocytopenia) Status: Resolved Plan: Hematology consult Serotonin release assay negative. HIT positive is likely a false positive result Continue to monitor platelets Patient has been started on fondaparinux per hematology Medical history: Heparin discontinued Argatroban discontinued per hematology (14) FEN/DVT PPX/GI PPX Status: Acute Plan: Fluids: None. Encouraged PO intake Electrolytes: Will monitor and replace as needed Nutrition: Diabetic diet DVT Prophylaxis: Fondaparinux per orthopedic surgery. Okay from hematology to be on heparin prophylactically because of false positive HIT. (Freddie Barahona MD R2) Problem Qualifiers (1) Diabetic foot ulcer: Qualified Code: E11.621 - Diabetic ulcer of toe of left foot associated with type 2 diabetes mellitus, unspecified ulcer stage (2) Hypertension: Qualified Code: I10 - Essential hypertension (3) Hyperlipidemia: Qualified Code: E78.5 - Hyperlipidemia, unspecified hyperlipidemia type (4) Anemia: Qualified Code: D64.9 - Anemia, unspecified type (5) Diabetes: Freddie Barahona MD R2 Feb 09, 2017 07:17 Brigid Lenz MD Feb 09, 2017 16:14
[2017-02-09 07:53] LABS: AUTOMATED NEUTROPHIL # 2.8 TH/MM3 (1.8-7.7); BASOPHIL % 0.3 % (0.0-2.0); EOSINOPHIL # 0.5 TH/MM3 (0-0.4); EOSINOPHIL % 7.7 % (0.0-4.0); HEMATOCRIT 27.8 % (39.0-51.0); LYMPH % 30.6 % (9.0-44.0); MEAN CELL VOLUME 92.4 FL (80.0-100.0); MEAN CORPUSCULAR HEMOGLOBIN 30.5 PG (27.0-34.0); MONO % 18.5 % (0.0-8.0); NEUT % 42.9 % (16.0-70.0); PLATELET COUNT 103 TH/MM3 (150-450); RED CELL DISTRIBUTION WIDTH 18.9 % (11.6-17.2); WHITE BLOOD COUNT 6.6 TH/MM3 (4.0-11.0)
[2017-02-09 08:00] VITALS: BP 142/70; PULSE 69; RESP 17; TEMP 96.9; O2SAT 100
[2017-02-09 08:02] LABS: HEMO FLAGS AUTO DIFF
[2017-02-09] MEDS: MULTIVITAMINS/MINERALS THERAPEUTIC TAB PO SCH ×2 (08:07→20:40)
[2017-02-09] MEDS: CITALOPRAM HYDROBROMIDE 20 MG TAB PO SCH (08:07)
[2017-02-09] MEDS: LACTOBACILLUS ACIDOPHILUS 1 GM PACKET PO SCH ×3 (08:07→16:25)
[2017-02-09] MEDS: SODIUM CHLORIDE 0.9% FLUSH 10 ML FLUSH IV FLUSH SCH ×2 (08:08→20:40)
[2017-02-09] MEDS: MUPIROCIN 2% CREAM 15 GM TOPICAL SCH ×2 (08:20→20:41)
[2017-02-09 09:58] LABS: BANDS 2 % (0-6); EOSINOPHILS 7 % (0-4); NEUTROPHIL # MANUAL DIFF 3.6 TH/MM3 (1.8-7.7); POLYS (SEG NEUTROPHILS) 52 % (16-70); WBC DIFF SAMPLE 100
[2017-02-09 10:06] LABS: PLATELET ESTIMATE SMEAR LOW (NORMAL); PLATELET MORPHOLOGY NORMAL (NORMAL); SCAN/DIFF FINAL DIFF MANUAL
[2017-02-09 12:00] VITALS: BP 149/66; PULSE 75; RESP 17; TEMP 95.7; O2SAT 99
[2017-02-09] MEDS: cefTRIAXone INJ 1,000 MG in SODIUM CHLORIDE 0.9% INJ 100 ML IV SCH (12:27)
[2017-02-09 16:00] VITALS: BP 150/70; PULSE 77; RESP 17; TEMP 98; O2SAT 99
[2017-02-09 20:00] VITALS: BP 135/98; PULSE 74; RESP 18; TEMP 96.2; O2SAT 99
[2017-02-09] MEDS: ATORVASTATIN 20 MG TAB PO SCH (20:40)
[2017-02-09] MEDS: QUEtiapine FUMARATE 25 MG TAB PO SCH (20:40)
[2017-02-09] MEDS: HYDROCORTISONE 2.5% CREAM 30 GM TOPICAL SCH (20:41)
[2017-02-09] MEDS: FONDAPARINUX SODIUM 2.5 MG/0.5 ML SYRINGE SQ SCH (20:41)
[2017-02-09] MEDS: CHLORHEXIDINE GLUCONATE 2 % 1 PACK (2 CLOTHS) TOP SCH (20:41)
[2017-02-10] VITALS: BP 130/65; PULSE 74; RESP 19; TEMP 98.3; O2SAT 96
[2017-02-10] MEDS: INSULIN ASPART SUPPLEMENTAL SCALE SQ SCH ×4 (05:15→20:46)
[2017-02-10 08:00] VITALS: BP 132/63; PULSE 66; RESP 16; TEMP 97.3; O2SAT 100
[2017-02-10] MEDS: MULTIVITAMINS/MINERALS THERAPEUTIC TAB PO SCH ×2 (08:26→20:48)
[2017-02-10] MEDS: CITALOPRAM HYDROBROMIDE 20 MG TAB PO SCH (08:26)
[2017-02-10] MEDS: LACTOBACILLUS ACIDOPHILUS 1 GM PACKET PO SCH ×3 (08:27→17:52)
[2017-02-10] MEDS: SODIUM CHLORIDE 0.9% FLUSH 10 ML FLUSH IV FLUSH SCH ×2 (08:27→20:48)
[2017-02-10] MEDS: MUPIROCIN 2% CREAM 15 GM TOPICAL SCH ×2 (09:00→20:49)
--- NOTE | 2017-02-10 09:28 | HHI.FPPN ---
Subjective Remarks No new complaints. Denies fever, nausea, vomiting, diarrhea, constipation, shortness of breath, rash, headache. (Freddie Barahona MD R2) Objective Vitals Vital Signs Date Time Temp Pulse Resp B/P Pulse Ox O2 Delivery O2 Flow Rate FiO2 02/10/17 08:00 97.3 66 16 132/63 100 02/10/17 00:00 98.3 74 19 130/65 96 02/09/17 20:00 96.2 74 18 135/98 99 02/09/17 16:00 98.0 77 17 150/70 99 02/09/17 12:00 95.7 75 17 149/66 99 I/O 02/09/17 02/09/17 02/09/17 02/10/17 02/10/17 02/10/17 07:00 15:00 23:00 07:00 15:00 23:00 Intake Total 360 ml 99 ml 360 ml 240 ml Output Total 1100 ml 100 ml 1000 ml Balance -740 ml 99 ml 260 ml -760 ml Intake Oral 360 ml 360 ml 240 ml IV Total 99 ml Output Urine Total 1100 ml 100 ml 1000 ml # Bowel Movements 0 1 0 (Freddie Barahona MD R2) Result Diagram: 02/09/1752102/09/17521 Objective Remarks GENERAL: NAD. SKIN: Status post left BKA. Incision clean/dry/intact. Sutures removed. HEAD: Atraumatic. Normocephalic. CARDIOVASCULAR: RRR RESPIRATORY: Clear to auscultation. Breath sounds equal bilaterally. No wheezes , rales, or rhonchi. GASTROINTESTINAL: Abdomen soft, non-tender, nondistended. No hepato-splenomegaly , or palpable masses. No guarding. MUSCULOSKELETAL: Status post left BKA. Incision clean/dry/intact and well healing. NEUROLOGICAL: Awake and alert. Cranial nerves grossly intact. PSYCH: Normal mood and affect Procedures Left foot ankle incision and drainage with partial resection of the fifth metatarsal head Left BKA (Freddie Barahona MD R2) A/P Assessment and Plan 56-year-old male with a past medical history of complicated type 2 diabetes presented meeting sepsis criteria with diabetic left foot wound. 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 Requested physical therapy to work with the patient twice a day Discharge Planning Patient cleared from orthopedic standpoint. Patient cleared for SNF with PT however his Medicaid will not cover this. He needs continued physical therapy and is currently not safe for discharge. [facility] has evaluated the patient and did not accept him. The patient will be discharged once he is able to care for himself safely with outpatient physical therapy. Case management continues to look for a Medicaid bed. (Freddie Barahona MD R2) Attending Attestation Patient seen and examined. Case reviewed and discussed with the resident team. Agree with plan of care as discussed with me and documented in the resident note. Mr Botello is a different man as far as his attitude and willingness to work to improve compared to when I saw him before in the hospital (Brigid Lenz MD) Problem List: (1) UTI (urinary tract infection) Status: Acute Plan: Urine culture growing Escherichia coli and Pseudomonas. Sensitivities in the EMR. Continue ceftriaxone for 5-7 days. Started 02/07 (2) TAYLOR (acute kidney injury) Status: Resolved Plan: Acute on chronic renal disease. Creatinine stable. DC IV fluids, encourage by mouth intake. Continue to monitor. (3) Tardive dyskinesia Status: Resolved Plan: Improving. Likely 2/2 antipsychotic. Not disturbing to patient but he likes to work on electronics. Patient seen by psychiatry, Abilify discontinued. He started citalopram and Seroquel per their recommendations. Much improved since changes in medications were made. 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 Antibiotic history is documented below. Patient cleared for rehabilitation, placement issues as above. Antibiotic history: Per infectious disease Augmentin 875 mg every 12 hours (started 01/02-01/06) Clindamycin IV (12/22-12/28) Zosyn also discontinued (12/22-12/26) Antibiotics per ID: Unasyn IV every 6 hours discontinued ( 12/26-01/01) (5) Hypertension Status: Chronic Plan: Currently resolved off his blood pressure medications. Patient was on hydrochlorothiazide, SUMMER inhibitor, and amlodipine. We'll resume medications when necessary increased blood pressure. (6) Hyperlipidemia Status: Chronic Plan: Labs from 12/11 show elevated LDL of 120. 10 year ASCVD risk score is 12% - recommendation is for a high-intensity statin * Started atorvastatin (7) Thrombocytopenia Status: Acute Plan: Hematology consult. Continue to monitor. HIT antibody positive; see HIT problem Heparin discontinued (8) Anemia Status: Chronic Plan: Stable. Hematology consulted. Status post transfusion 4. Anemia workup unremarkable. (9) Stage 1 decubitus ulcer in diabetic patient Status: Acute Plan: Notified 01/03 at 11 AM of stage I decubitus at the patient's sacrum. On breakdown of epidermis, Stage 2 ulcer. Wound care nursing consulted Offload areas of pressure per protocol Continue to work with physical therapy Soft mattress order Further orders per wound care (10) Diabetes Status: Chronic Plan: Hemoglobin A1c on 12/11 was 6.9 Sliding scale insulin while in hospital. Patient has had diarrhea on metformin, likely will need to be discontinued as an outpatient and put on glipizide (11) Social issues Status: Acute Plan: Case management consulted to assist with disposition. Patient has no one to help care for him at home and is currently not safe for discharge. Details as above. Consider transfer to [place]. (12) Anxiety and depression Status: Acute Plan: Abilify discontinued. Continue Celexa 20 and Seroquel per psychiatry -Psychiatry consulted: Diagnosed with dysthymia; he has appropriate follow-up with psychiatry services in the community (13) HIT (heparin-induced thrombocytopenia) Status: Resolved Plan: Hematology consult Serotonin release assay negative. HIT positive is likely a false positive result Continue to monitor platelets Patient has been started on fondaparinux per hematology Medical history: Heparin discontinued Argatroban discontinued per hematology (14) FEN/DVT PPX/GI PPX Status: Acute Plan: Fluids: None. Encouraged PO intake Electrolytes: Will monitor and replace as needed Nutrition: Diabetic diet DVT Prophylaxis: Fondaparinux per orthopedic surgery. Okay from hematology to be on heparin prophylactically because of false positive HIT. (Freddie Barahona MD R2) Problem Qualifiers (1) Diabetic foot ulcer: Qualified Code: E11.621 - Diabetic ulcer of toe of left foot associated with type 2 diabetes mellitus, unspecified ulcer stage (2) Hypertension: Qualified Code: I10 - Essential hypertension (3) Hyperlipidemia: Qualified Code: E78.5 - Hyperlipidemia, unspecified hyperlipidemia type (4) Anemia: Qualified Code: D64.9 - Anemia, unspecified type (5) Diabetes: Freddie Barahona MD R2 Feb 10, 2017 09:28 Brigid Lenz MD Feb 10, 2017 15:20
[2017-02-10 12:00] VITALS: BP 137/70; PULSE 70; RESP 17; TEMP 97.5; O2SAT 98
[2017-02-10] MEDS: cefTRIAXone INJ 1,000 MG in SODIUM CHLORIDE 0.9% INJ 100 ML IV SCH (13:14)
[2017-02-10 16:00] VITALS: BP 113/59; PULSE 52; RESP 16; TEMP 96.7; O2SAT 98
[2017-02-10 20:00] VITALS: BP_SYST 142; BP_SYST 145; BP_DIAS 69; BP_DIAS 74; PULSE 78; RESP 19; TEMP 96.7; TEMP 97.6; O2SAT 97
[2017-02-10] MEDS: FONDAPARINUX SODIUM 2.5 MG/0.5 ML SYRINGE SQ SCH (20:48)
[2017-02-10] MEDS: ATORVASTATIN 20 MG TAB PO SCH (20:48)
[2017-02-10] MEDS: QUEtiapine FUMARATE 25 MG TAB PO SCH (20:48)
[2017-02-10] MEDS: HYDROCORTISONE 2.5% CREAM 30 GM TOPICAL SCH (20:49)
[2017-02-11] VITALS: BP 142/74; PULSE 78; RESP 19; TEMP 96.7; O2SAT 97
[2017-02-11] MEDS: CHLORHEXIDINE GLUCONATE 2 % 1 PACK (2 CLOTHS) TOP SCH (04:00)
[2017-02-11] MEDS: INSULIN ASPART SUPPLEMENTAL SCALE SQ SCH ×4 (05:03→20:03)
[2017-02-11 06:05] LABS: AUTOMATED NEUTROPHIL # 2.8 TH/MM3 (1.8-7.7); BASOPHIL % 0.3 % (0.0-2.0); EOSINOPHIL # 0.4 TH/MM3 (0-0.4); EOSINOPHIL % 6.3 % (0.0-4.0); HEMATOCRIT 27.1 % (39.0-51.0); HEMO FLAGS DIFF FINAL; LYMPHOCYTE # 2.1 TH/MM3 (1.0-4.8); MEAN CELL VOLUME 92.5 FL (80.0-100.0); MEAN CORPUSCULAR HEMOGLOBIN 30.5 PG (27.0-34.0); MEAN CORPUSCULAR HGB CONC 32.9 % (32.0-36.0); MONO % 16.3 % (0.0-8.0); NEUT % 44.1 % (16.0-70.0); PLATELET COUNT 104 TH/MM3 (150-450); RED BLOOD COUNT 2.93 MIL/MM3 (4.50-5.90); WHITE BLOOD COUNT 6.3 TH/MM3 (4.0-11.0)
[2017-02-11 06:36] LABS: BICARBONATE 18.5 MEQ/L (21.0-32.0); POTASSIUM 4.8 MEQ/L (3.5-5.1)
[2017-02-11 08:00] VITALS: BP 150/73; PULSE 74; RESP 20; TEMP 97.9; O2SAT 98
--- NOTE | 2017-02-11 08:44 | HHI.FPPN ---
Subjective Remarks Patient is doing well this morning. No new events. Denies chest pain, nausea, vomiting, fever, chills, shortness of breath. (Freddie Barahona MD R2) Objective Vitals Vital Signs Date Time Temp Pulse Resp B/P Pulse Ox O2 Delivery O2 Flow Rate FiO2 02/11/17 08:00 97.9 74 20 150/73 98 02/11/17 00:00 96.7 78 19 142/74 97 02/10/17 20:00 97.6 78 19 145/69 97 02/10/17 16:00 96.7 52 16 113/59 98 02/10/17 12:00 97.5 70 17 137/70 98 I/O 02/10/17 02/10/17 02/10/17 02/11/17 02/11/17 02/11/17 07:00 15:00 23:00 07:00 15:00 23:00 Intake Total 240 ml 240 ml 240 ml Output Total 1000 ml 700 ml 1000 ml 300 ml 600 ml Balance -760 ml -460 ml -1000 ml -60 ml -600 ml Intake Oral 240 ml 240 ml 240 ml Output Urine Total 1000 ml 700 ml 1000 ml 300 ml 600 ml # Voids 1 # Bowel Movements 0 0 1 0 (Freddie Barahona MD R2) Result Diagram: 02/11/17 0436 02/11/17 043 Objective Remarks GENERAL: NAD. SKIN: Status post left BKA. Incision clean/dry/intact. Sutures removed. HEAD: Atraumatic. Normocephalic. CARDIOVASCULAR: RRR RESPIRATORY: Clear to auscultation. Breath sounds equal bilaterally. No wheezes , rales, or rhonchi. GASTROINTESTINAL: Abdomen soft, non-tender, nondistended. No hepato-splenomegaly , or palpable masses. No guarding. MUSCULOSKELETAL: Status post left BKA. Incision clean/dry/intact and well healing. NEUROLOGICAL: Awake and alert. Cranial nerves grossly intact. PSYCH: Normal mood and affect Procedures Left foot ankle incision and drainage with partial resection of the fifth metatarsal head Left BKA (Freddie Barahona MD R2) A/P Assessment and Plan 56-year-old male with a past medical history of complicated type 2 diabetes presented meeting sepsis criteria with diabetic left foot wound. 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 Requested physical therapy to work with the patient twice a day Discharge Planning Patient cleared from orthopedic standpoint. Patient cleared for SNF with PT however his Medicaid will not cover this. He needs continued physical therapy and is currently not safe for discharge. [facility] has evaluated the patient very early during his hospitalization and did not accept him. The patient will be discharged once he is able to care for himself safely with outpatient physical therapy. Case management continues to look for a Medicaid bed. (Freddie Barahona MD R2) Attending Attestation Patient seen and examined. Case reviewed and discussed with the resident team. Agree with plan of care as discussed with me and documented in the resident note. he is motivated to go home. It has been so far impossible to get him to any rehab. have been informed that acute rehab is different from the type of rehab needed to get him home. (Brigid Lenz MD) Problem List: (1) UTI (urinary tract infection) Status: Acute Plan: Urine culture growing Escherichia coli and Pseudomonas. Sensitivities in the EMR. Continue ceftriaxone for a total of 5-7 days. Started 02/07 (2) TAYLOR (acute kidney injury) Status: Resolved Plan: Acute on chronic renal disease. Creatinine stable. DC IV fluids, encourage by mouth intake. Continue to monitor. (3) Tardive dyskinesia Status: Resolved Plan: Improving. Likely 2/2 antipsychotic. Not disturbing to patient but he likes to work on electronics. Patient seen by psychiatry, Abilify discontinued. He started citalopram and Seroquel per their recommendations. Much improved since changes in medications were made. 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 Antibiotic history is documented below. Patient cleared for rehabilitation, placement issues as above. Antibiotic history: Per infectious disease Augmentin 875 mg every 12 hours (started 01/02-01/06) Clindamycin IV (12/22-12/28) Zosyn also discontinued (12/22-12/26) Antibiotics per ID: Unasyn IV every 6 hours discontinued ( 12/26-01/01) (5) Hypertension Status: Chronic Plan: Currently resolved off his blood pressure medications. Patient was on hydrochlorothiazide, SUMMER inhibitor, and amlodipine. We'll resume medications when necessary increased blood pressure. (6) Hyperlipidemia Status: Chronic Plan: Labs from 12/11 show elevated LDL of 120. 10 year ASCVD risk score is 12% - recommendation is for a high-intensity statin * Started atorvastatin (7) Thrombocytopenia Status: Acute Plan: Hematology consult. Continue to monitor. HIT antibody positive; see HIT problem Heparin discontinued (8) Anemia Status: Chronic Plan: Stable. Hematology consulted. Status post transfusion 4. Anemia workup unremarkable. (9) Stage 1 decubitus ulcer in diabetic patient Status: Acute Plan: Notified 01/03 at 11 AM of stage I decubitus at the patient's sacrum. On breakdown of epidermis, Stage 2 ulcer. Wound care nursing consulted Offload areas of pressure per protocol Continue to work with physical therapy Soft mattress order Further orders per wound care (10) Diabetes Status: Chronic Plan: Hemoglobin A1c on 12/11 was 6.9 Sliding scale insulin while in hospital. Patient has had diarrhea on metformin, likely will need to be discontinued as an outpatient and put on glipizide (11) Social issues Status: Acute Plan: Case management consulted to assist with disposition. Patient has no one to help care for him at home and is currently not safe for discharge. Details as above. Consider transfer to [place]. (12) Anxiety and depression Status: Acute Plan: Abilify discontinued. Continue Celexa 20 and Seroquel per psychiatry -Psychiatry consulted: Diagnosed with dysthymia; he has appropriate follow-up with psychiatry services in the community (13) HIT (heparin-induced thrombocytopenia) Status: Resolved Plan: Hematology consult Serotonin release assay negative. HIT positive is likely a false positive result Continue to monitor platelets Patient has been started on fondaparinux per hematology Medical history: Heparin discontinued Argatroban discontinued per hematology (14) FEN/DVT PPX/GI PPX Status: Acute Plan: Fluids: None. Encouraged PO intake Electrolytes: Will monitor and replace as needed Nutrition: Diabetic diet DVT Prophylaxis: Fondaparinux per orthopedic surgery. Okay from hematology to be on heparin prophylactically because of false positive HIT. (Freddie Barahona MD R2) Problem Qualifiers (1) Diabetic foot ulcer: Qualified Code: E11.621 - Diabetic ulcer of toe of left foot associated with type 2 diabetes mellitus, unspecified ulcer stage (2) Hypertension: Qualified Code: I10 - Essential hypertension (3) Hyperlipidemia: Qualified Code: E78.5 - Hyperlipidemia, unspecified hyperlipidemia type (4) Anemia: Qualified Code: D64.9 - Anemia, unspecified type (5) Diabetes: Freddie Barahona MD R2 Feb 11, 2017 08:44 Brigid Lenz MD Feb 13, 2017 14:00
[2017-02-11] MEDS: LACTOBACILLUS ACIDOPHILUS 1 GM PACKET PO SCH ×3 (09:00→18:38)
[2017-02-11] MEDS: MUPIROCIN 2% CREAM 15 GM TOPICAL SCH ×2 (09:00→20:04)
[2017-02-11] MEDS: MULTIVITAMINS/MINERALS THERAPEUTIC TAB PO SCH ×2 (09:17→20:03)
[2017-02-11] MEDS: SODIUM CHLORIDE 0.9% FLUSH 10 ML FLUSH IV FLUSH SCH ×2 (09:17→20:03)
[2017-02-11] MEDS: CITALOPRAM HYDROBROMIDE 20 MG TAB PO SCH (09:17)
[2017-02-11 12:00] VITALS: BP 132/60; PULSE 81; RESP 20; TEMP 97.7; O2SAT 96
[2017-02-11] MEDS: cefTRIAXone INJ 1,000 MG in SODIUM CHLORIDE 0.9% INJ 100 ML IV SCH (13:45)
[2017-02-11 16:00] VITALS: BP 134/80; PULSE 86; RESP 20; TEMP 97; O2SAT 93
[2017-02-11] MEDS: ATORVASTATIN 20 MG TAB PO SCH (20:03)
[2017-02-11] MEDS: FONDAPARINUX SODIUM 2.5 MG/0.5 ML SYRINGE SQ SCH (20:03)
[2017-02-11] MEDS: QUEtiapine FUMARATE 25 MG TAB PO SCH (20:03)
[2017-02-11] MEDS: HYDROCORTISONE 2.5% CREAM 30 GM TOPICAL SCH (20:04)
[2017-02-11 20:10] VITALS: BP 134/72; PULSE 80; RESP 18; TEMP 97.6; O2SAT 98
[2017-02-12 00:11] VITALS: BP 137/63; PULSE 76; RESP 17; TEMP 98.6; O2SAT 96
[2017-02-12] MEDS: CHLORHEXIDINE GLUCONATE 2 % 1 PACK (2 CLOTHS) TOP SCH (04:00)
[2017-02-12] MEDS: INSULIN ASPART SUPPLEMENTAL SCALE SQ SCH ×4 (05:39→21:00)
[2017-02-12] MEDS: MUPIROCIN 2% CREAM 15 GM TOPICAL SCH ×2 (07:29→21:00)
[2017-02-12 08:00] VITALS: BP 151/69; PULSE 70; RESP 20; TEMP 97.8; O2SAT 100
[2017-02-12] MEDS: SODIUM CHLORIDE 0.9% FLUSH 10 ML FLUSH IV FLUSH SCH ×2 (08:38→21:11)
[2017-02-12] MEDS: MULTIVITAMINS/MINERALS THERAPEUTIC TAB PO SCH ×2 (08:38→21:11)
[2017-02-12] MEDS: CITALOPRAM HYDROBROMIDE 20 MG TAB PO SCH (08:38)
[2017-02-12] MEDS: LACTOBACILLUS ACIDOPHILUS 1 GM PACKET PO SCH ×3 (08:38→17:17)
--- NOTE | 2017-02-12 10:05 | HHI.FPPN ---
Subjective Remarks Patient is doing well this morning. No changes in status. Denies nausea, vomiting, chest pain, shortness of breath, fever, chills. (Freddie Barahona MD R2) Objective Vitals Vital Signs Date Time Temp Pulse Resp B/P Pulse Ox O2 Delivery O2 Flow Rate FiO2 02/12/17 08:00 97.8 70 20 151/69 100 02/12/17 00:11 98.6 76 17 137/63 96 02/11/17 20:10 97.6 80 18 134/72 98 02/11/17 16:00 97.0 86 20 134/80 93 02/11/17 12:00 97.7 81 20 132/60 96 I/O 02/11/17 02/11/17 02/11/17 02/12/17 02/12/17 02/12/17 07:00 15:00 23:00 07:00 15:00 23:00 Intake Total 240 ml 240 ml 480 ml 360 ml 120 ml Output Total 300 ml 600 ml 800 ml 1000 ml Balance -60 ml -360 ml -320 ml -640 ml 120 ml Intake Oral 240 ml 240 ml 480 ml 360 ml 120 ml Output Urine Total 300 ml 600 ml 800 ml 1000 ml # Voids 1 # Bowel Movements 0 (Freddie Barahona MD R2) Result Diagram: 02/11/17 0436 02/11/17 043 Objective Remarks GENERAL: NAD. SKIN: Status post left BKA. Incision clean/dry/intact. Sutures removed. HEAD: Atraumatic. Normocephalic. CARDIOVASCULAR: RRR RESPIRATORY: Clear to auscultation. Breath sounds equal bilaterally. No wheezes , rales, or rhonchi. GASTROINTESTINAL: Abdomen soft, non-tender, nondistended. No hepato-splenomegaly , or palpable masses. No guarding. MUSCULOSKELETAL: Status post left BKA. Incision clean/dry/intact and well healing. NEUROLOGICAL: Awake and alert. Cranial nerves grossly intact. PSYCH: Normal mood and affect Procedures Left foot ankle incision and drainage with partial resection of the fifth metatarsal head Left BKA (Freddie Barahona MD R2) A/P Assessment and Plan 56-year-old male with a past medical history of complicated type 2 diabetes presented meeting sepsis criteria with diabetic left foot wound. 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 Requested physical therapy to work with the patient twice a day Discharge Planning Patient cleared from orthopedic standpoint. Patient cleared for SNF with PT however his Medicaid will not cover this. He needs continued physical therapy and is currently not safe for discharge. [facility] has evaluated the patient very early during his hospitalization and did not accept him. The patient will be discharged once he is able to care for himself safely with outpatient physical therapy. Case management continues to look for a Medicaid bed. (Freddie Barahona MD R2) Attending Attestation Patient seen and examined. Case reviewed and discussed with the resident team. Agree with plan of care as discussed with me and documented in the resident note. asked Mr Rosmery and he can go home he feels if he meets 3 criteria 1) climbing 2 steps 2) taking care of himself in the bathroom 3) transferring in and out of a car so far he has not worked with any steps and I was informed that they are only available in some places. will try very hard to get this gentleman home. hope to devise a PT program here that will accomplish that goal. (Brigid Lenz MD) Problem List: (1) UTI (urinary tract infection) Status: Acute Plan: Urine culture growing Escherichia coli and Pseudomonas. Sensitivities in the EMR. Continue ceftriaxone for a total of 5-7 days. Started 02/07 (2) TAYLOR (acute kidney injury) Status: Resolved Plan: Acute on chronic renal disease. Creatinine stable. DC IV fluids, encourage by mouth intake. Continue to monitor. (3) Tardive dyskinesia Status: Resolved Plan: Improving. Likely 2/2 antipsychotic. Not disturbing to patient but he likes to work on electronics. Patient seen by psychiatry, Abilify discontinued. He started citalopram and Seroquel per their recommendations. Much improved since changes in medications were made. 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 Antibiotic history is documented below. Patient cleared for rehabilitation, placement issues as above. Antibiotic history: Per infectious disease Augmentin 875 mg every 12 hours (started 01/02-01/06) Clindamycin IV (12/22-12/28) Zosyn also discontinued (12/22-12/26) Antibiotics per ID: Unasyn IV every 6 hours discontinued ( 12/26-01/01) (5) Hypertension Status: Chronic Plan: Currently resolved off his blood pressure medications. Patient was on hydrochlorothiazide, SUMMER inhibitor, and amlodipine. We'll resume medications when necessary increased blood pressure. (6) Hyperlipidemia Status: Chronic Plan: Labs from 12/11 show elevated LDL of 120. 10 year ASCVD risk score is 12% - recommendation is for a high-intensity statin * Started atorvastatin (7) Thrombocytopenia Status: Acute Plan: Hematology consult. Continue to monitor. HIT antibody positive; see HIT problem Heparin discontinued (8) Anemia Status: Chronic Plan: Stable. Hematology consulted. Status post transfusion 4. Anemia workup unremarkable. (9) Stage 1 decubitus ulcer in diabetic patient Status: Acute Plan: Notified 01/03 at 11 AM of stage I decubitus at the patient's sacrum. On breakdown of epidermis, Stage 2 ulcer. Wound care nursing consulted Offload areas of pressure per protocol Continue to work with physical therapy Soft mattress order Further orders per wound care (10) Diabetes Status: Chronic Plan: Hemoglobin A1c on 12/11 was 6.9 Sliding scale insulin while in hospital. Patient has had diarrhea on metformin, likely will need to be discontinued as an outpatient and put on glipizide (11) Social issues Status: Acute Plan: Case management consulted to assist with disposition. Patient has no one to help care for him at home and is currently not safe for discharge. Details as above. Consider transfer to [place]. (12) Anxiety and depression Status: Acute Plan: Abilify discontinued. Continue Celexa 20 and Seroquel per psychiatry -Psychiatry consulted: Diagnosed with dysthymia; he has appropriate follow-up with psychiatry services in the community (13) HIT (heparin-induced thrombocytopenia) Status: Resolved Plan: Hematology consult Serotonin release assay negative. HIT positive is likely a false positive result Continue to monitor platelets Patient has been started on fondaparinux per hematology Medical history: Heparin discontinued Argatroban discontinued per hematology (14) FEN/DVT PPX/GI PPX Status: Acute Plan: Fluids: None. Encouraged PO intake Electrolytes: Will monitor and replace as needed Nutrition: Diabetic diet DVT Prophylaxis: Fondaparinux per orthopedic surgery. Okay from hematology to be on heparin prophylactically because of false positive HIT. (Freddie Barahona MD R2) Problem Qualifiers (1) Diabetic foot ulcer: Qualified Code: E11.621 - Diabetic ulcer of toe of left foot associated with type 2 diabetes mellitus, unspecified ulcer stage (2) Hypertension: Qualified Code: I10 - Essential hypertension (3) Hyperlipidemia: Qualified Code: E78.5 - Hyperlipidemia, unspecified hyperlipidemia type (4) Anemia: Qualified Code: D64.9 - Anemia, unspecified type (5) Diabetes: Freddie Barahona MD R2 Feb 12, 2017 10:05 Brigid Lenz MD Feb 13, 2017 14:03
[2017-02-12 12:00] VITALS: BP 146/72; PULSE 75; RESP 20; TEMP 97.5; O2SAT 96
[2017-02-12] MEDS: cefTRIAXone INJ 1,000 MG in SODIUM CHLORIDE 0.9% INJ 100 ML IV SCH (12:15)
[2017-02-12 16:00] VITALS: BP 115/66; PULSE 79; RESP 20; TEMP 96.9; O2SAT 99
[2017-02-12 20:09] VITALS: BP 125/63; PULSE 79; RESP 18; TEMP 98.5; O2SAT 98
[2017-02-12] MEDS: HYDROCORTISONE 2.5% CREAM 30 GM TOPICAL SCH (21:00)
[2017-02-12] MEDS: QUEtiapine FUMARATE 25 MG TAB PO SCH (21:10)
[2017-02-12] MEDS: FONDAPARINUX SODIUM 2.5 MG/0.5 ML SYRINGE SQ SCH (21:11)
[2017-02-12] MEDS: ATORVASTATIN 20 MG TAB PO SCH (21:11)
[2017-02-13 00:03] VITALS: BP 111/65; PULSE 80; RESP 18; TEMP 97.2; O2SAT 96
[2017-02-13] MEDS: CHLORHEXIDINE GLUCONATE 2 % 1 PACK (2 CLOTHS) TOP SCH (02:12)
[2017-02-13] MEDS: INSULIN ASPART SUPPLEMENTAL SCALE SQ SCH ×4 (05:42→21:00)
[2017-02-13 08:00] VITALS: BP 135/73; PULSE 71; RESP 17; TEMP 96.4; O2SAT 100
[2017-02-13] MEDS: MUPIROCIN 2% CREAM 15 GM TOPICAL SCH ×2 (09:00→21:00)
[2017-02-13] MEDS: LACTOBACILLUS ACIDOPHILUS 1 GM PACKET PO SCH ×3 (09:29→17:29)
[2017-02-13] MEDS: MULTIVITAMINS/MINERALS THERAPEUTIC TAB PO SCH ×2 (09:29→21:27)
[2017-02-13] MEDS: CITALOPRAM HYDROBROMIDE 20 MG TAB PO SCH (09:29)
[2017-02-13] MEDS: SODIUM CHLORIDE 0.9% FLUSH 10 ML FLUSH IV FLUSH SCH ×2 (09:29→21:28)
--- NOTE | 2017-02-13 10:44 | HHI.FPPN ---
Subjective Remarks No new changes. Patient is working with physical therapy on steps. Patient denies fever, chills, nausea, vomiting. (Freddie Barahona MD R2) Objective Vitals Vital Signs Date Time Temp Pulse Resp B/P Pulse Ox O2 Delivery O2 Flow Rate FiO2 02/13/17 08:00 96.4 71 17 135/73 100 02/13/17 00:03 97.2 80 18 111/65 96 02/12/17 20:09 98.5 79 18 125/63 98 02/12/17 16:00 96.9 79 20 115/66 99 02/12/17 12:00 97.5 75 20 146/72 96 I/O 02/12/17 02/12/17 02/12/17 02/13/17 02/13/17 02/13/17 07:00 15:00 23:00 07:00 15:00 23:00 Intake Total 360 ml 1180 ml 480 ml 360 ml Output Total 1000 ml 1000 ml 1000 ml 1000 ml 725 ml Balance -640 ml 180 ml -520 ml -640 ml -725 ml Intake Oral 360 ml 1080 ml 480 ml 360 ml IV Total 100 ml Output Urine Total 1000 ml 1000 ml 1000 ml 1000 ml 725 ml # Bowel Movements 0 1 (Freddie Barahona MD R2) Result Diagram: 02/11/17 0436 02/11/17 043 Objective Remarks GENERAL: NAD. SKIN: Status post left BKA. Incision clean/dry/intact. Sutures removed. HEAD: Atraumatic. Normocephalic. CARDIOVASCULAR: RRR RESPIRATORY: Clear to auscultation. Breath sounds equal bilaterally. No wheezes , rales, or rhonchi. GASTROINTESTINAL: Abdomen soft, non-tender, nondistended. No hepato-splenomegaly , or palpable masses. No guarding. MUSCULOSKELETAL: Status post left BKA. Incision clean/dry/intact and well healing. NEUROLOGICAL: Awake and alert. Cranial nerves grossly intact. PSYCH: Normal mood and affect Procedures Left foot ankle incision and drainage with partial resection of the fifth metatarsal head Left BKA (Freddie Barahona MD R2) A/P Assessment and Plan 56-year-old male with a past medical history of complicated type 2 diabetes presented meeting sepsis criteria with diabetic left foot wound. 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 Requested physical therapy to work with the patient twice a day Discharge Planning Patient cleared from orthopedic standpoint. Patient cleared for SNF with PT however his Medicaid will not cover this. He needs continued physical therapy and is currently not safe for discharge. [facility] very [facility] during [facility] hospitalization and did not accept him. The patient will be discharged once he is able to care for himself safely with outpatient physical therapy. Case management continues to look for a Medicaid bed. (Freddie Barahona MD R2) Attending Attestation Patient seen and examined. Case reviewed and discussed with the resident team. Agree with plan of care as discussed with me and documented in the resident note. thankfully, he just started today working on climbing a step. he also for the first time was helped to transfer to the toilet. he is making progress! unsure about what can be done to help be sure he can transfer himself to a car. will check to see when he can begin getting ready for a prosthesis. he cannot see Orthopedics in their office now so will consult here in the hospital. asking Dr Alves for any help she can offer on his rehab as he will be completing his rehab here at the hospital and I'm not sure what needs to be done to help him transfer to a car, etc. will continue working with therapy and appreciate everyone's help! (Brigid Lenz MD) Problem List: (1) UTI (urinary tract infection) Status: Acute Plan: Urine culture growing Escherichia coli and Pseudomonas. Sensitivities in the EMR. Continue ceftriaxone for a total of 7 days; stop day 7/6 (2) TAYLOR (acute kidney injury) Status: Resolved Plan: Acute on chronic renal disease. Creatinine stable. DC IV fluids, encourage by mouth intake. Continue to monitor. (3) Tardive dyskinesia Status: Resolved Plan: Improving. Likely 2/2 antipsychotic. Not disturbing to patient but he likes to work on electronics. Patient seen by psychiatry, Abilify discontinued. He started citalopram and Seroquel per their recommendations. Much improved since changes in medications were made. 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 Antibiotic history is documented below. Patient cleared for rehabilitation, placement issues as above. Consult rehabilitation medicine, Dr. Alves Antibiotic history: Per infectious disease Augmentin 875 mg every 12 hours (started 01/02-01/06) Clindamycin IV (12/22-12/28) Zosyn also discontinued (12/22-12/26) Antibiotics per ID: Unasyn IV every 6 hours discontinued ( 12/26-01/01) (5) Hypertension Status: Chronic Plan: Currently resolved off his blood pressure medications. Patient was on hydrochlorothiazide, SUMMER inhibitor, and amlodipine. We'll resume medications when necessary increased blood pressure. (6) Hyperlipidemia Status: Chronic Plan: Labs from 12/11 show elevated LDL of 120. 10 year ASCVD risk score is 12% - recommendation is for a high-intensity statin * Started atorvastatin (7) Thrombocytopenia Status: Acute Plan: Hematology consult. Continue to monitor. HIT antibody positive; see HIT problem Heparin discontinued (8) Anemia Status: Chronic Plan: Stable. Hematology consulted. Status post transfusion 4. Anemia workup unremarkable. (9) Stage 1 decubitus ulcer in diabetic patient Status: Acute Plan: Notified 01/03 at 11 AM of stage I decubitus at the patient's sacrum. On breakdown of epidermis, Stage 2 ulcer. Wound care nursing consulted Offload areas of pressure per protocol Continue to work with physical therapy Soft mattress order Further orders per wound care (10) Diabetes Status: Chronic Plan: Hemoglobin A1c on 12/11 was 6.9 Sliding scale insulin while in hospital. Patient has had diarrhea on metformin, likely will need to be discontinued as an outpatient and put on glipizide (11) Social issues Status: Acute Plan: Case management consulted to assist with disposition. Patient has no one to help care for him at home and is currently not safe for discharge. Details as above. Consider transfer to [place]. (12) Anxiety and depression Status: Acute Plan: Abilify discontinued. Continue Celexa 20 and Seroquel per psychiatry -Psychiatry consulted: Diagnosed with dysthymia; he has appropriate follow-up with psychiatry services in the community (13) HIT (heparin-induced thrombocytopenia) Status: Resolved Plan: Hematology consult Serotonin release assay negative. HIT positive is likely a false positive result Continue to monitor platelets Patient has been started on fondaparinux per hematology Medical history: Heparin discontinued Argatroban discontinued per hematology (14) FEN/DVT PPX/GI PPX Status: Acute Plan: Fluids: None. Encouraged PO intake Electrolytes: Will monitor and replace as needed Nutrition: Diabetic diet DVT Prophylaxis: Fondaparinux per orthopedic surgery. Okay from hematology to be on heparin prophylactically because of false positive HIT. (Freddie Barahona MD R2) Problem Qualifiers (1) Diabetic foot ulcer: Qualified Code: E11.621 - Diabetic ulcer of toe of left foot associated with type 2 diabetes mellitus, unspecified ulcer stage (2) Hypertension: Qualified Code: I10 - Essential hypertension (3) Hyperlipidemia: Qualified Code: E78.5 - Hyperlipidemia, unspecified hyperlipidemia type (4) Anemia: Qualified Code: D64.9 - Anemia, unspecified type (5) Diabetes: Freddie Barahona MD R2 Feb 13, 2017 10:44 Brigid Lenz MD Feb 13, 2017 14:08
[2017-02-13] MEDS: cefTRIAXone INJ 1,000 MG in SODIUM CHLORIDE 0.9% INJ 100 ML IV SCH (11:30)
[2017-02-13 12:00] VITALS: BP 132/70; PULSE 78; RESP 17; TEMP 96.3; O2SAT 100
[2017-02-13 16:00] VITALS: BP 140/68; PULSE 75; RESP 17; TEMP 98.3; O2SAT 99
[2017-02-13 20:00] VITALS: BP 136/66; PULSE 74; RESP 18; TEMP 98; O2SAT 99
[2017-02-13] MEDS: HYDROCORTISONE 2.5% CREAM 30 GM TOPICAL SCH (21:00)
[2017-02-13] MEDS: ATORVASTATIN 20 MG TAB PO SCH (21:27)
[2017-02-13] MEDS: QUEtiapine FUMARATE 25 MG TAB PO SCH (21:27)
[2017-02-13] MEDS: FONDAPARINUX SODIUM 2.5 MG/0.5 ML SYRINGE SQ SCH (21:27)
[2017-02-14] VITALS: BP 121/62; PULSE 76; RESP 18; TEMP 97.3; O2SAT 97
[2017-02-14] MEDS: CHLORHEXIDINE GLUCONATE 2 % 1 PACK (2 CLOTHS) TOP SCH (04:00)
[2017-02-14] MEDS: INSULIN ASPART SUPPLEMENTAL SCALE SQ SCH ×4 (05:46→20:28)
[2017-02-14 08:00] VITALS: BP 131/63; PULSE 76; RESP 17; TEMP 96.8; O2SAT 99
[2017-02-14] MEDS: MULTIVITAMINS/MINERALS THERAPEUTIC TAB PO SCH ×2 (08:42→20:25)
[2017-02-14] MEDS: LACTOBACILLUS ACIDOPHILUS 1 GM PACKET PO SCH ×3 (08:42→17:09)
[2017-02-14] MEDS: CITALOPRAM HYDROBROMIDE 20 MG TAB PO SCH (08:42)
[2017-02-14] MEDS: SODIUM CHLORIDE 0.9% FLUSH 10 ML FLUSH IV FLUSH SCH ×2 (08:42→20:25)
[2017-02-14] MEDS: MUPIROCIN 2% CREAM 15 GM TOPICAL SCH ×2 (08:43→21:00)
--- NOTE | 2017-02-14 09:39 | HHI.FPPN ---
Subjective Remarks Patient is curious about prosthesis and if he is ready from orthopedic standpoint. No other concerns. No fever, chills, n/v/d, sob. (Freddie Barahona MD R2) Objective Vitals Vital Signs Date Time Temp Pulse Resp B/P Pulse Ox O2 Delivery O2 Flow Rate FiO2 02/14/17 00:00 97.3 76 18 121/62 97 02/13/17 20:00 98.0 74 18 136/66 99 02/13/17 16:00 98.3 75 17 140/68 99 02/13/17 12:00 96.3 78 17 132/70 100 I/O 02/13/17 02/13/17 02/13/17 02/14/17 02/14/17 02/14/17 06:59 14:59 22:59 06:59 14:59 22:59 Intake Total 360 ml 95 ml 320 ml 480 ml Output Total 1000 ml 2125 ml 300 ml 1250 ml Balance -640 ml -2030 ml 20 ml -770 ml Intake Oral 360 ml 320 ml 480 ml IV Total 95 ml Output Urine Total 1000 ml 2125 ml 300 ml 1250 ml # Bowel Movements 0 0 (Freddie Barahona MD R2) Result Diagram: 02/11/17 0436 02/11/17 0436 Objective Remarks GENERAL: NAD. SKIN: Status post left BKA. Incision clean/dry/intact. Sutures removed. HEAD: Atraumatic. Normocephalic. CARDIOVASCULAR: RRR RESPIRATORY: Clear to auscultation. Breath sounds equal bilaterally. No wheezes , rales, or rhonchi. GASTROINTESTINAL: Abdomen soft, non-tender, nondistended. No hepato-splenomegaly , or palpable masses. No guarding. MUSCULOSKELETAL: Status post left BKA. Incision clean/dry/intact and well healing. NEUROLOGICAL: Awake and alert. Cranial nerves grossly intact. PSYCH: Normal mood and affect Procedures Left foot ankle incision and drainage with partial resection of the fifth metatarsal head Left BKA (Freddie Barahona MD R2) A/P Assessment and Plan 56-year-old male with a past medical history of complicated type 2 diabetes presented meeting sepsis criteria with diabetic left foot wound. 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 Requested physical therapy to work with the patient twice a day Discharge Planning Patient cleared from orthopedic standpoint. Patient cleared for SNF with PT however his Medicaid will not cover this. He needs continued physical therapy and is currently not safe for discharge. [facility] has evaluated the patient very early during his hospitalization and did not accept him. The patient will be discharged once he is able to care for himself safely with outpatient physical therapy. Case management continues to look for a Medicaid bed. (Freddie Barahona MD R2) Attending Attestation Patient seen and examined. Case reviewed and discussed with the resident team. Agree with plan of care as discussed with me and documented in the resident note. he is nervous about going home but very happy to be making progress (Brigid Lenz MD) Problem List: (1) Diabetic foot ulcer Status: Chronic Plan: Status post BKA on 12/23/16 for diabetic foot ulcer with osteomyelitis. Antibiotic history is documented below. Patient cleared for rehabilitation, placement issues as above. Consult rehabilitation medicine, Dr. Alves [facility]/orthopedic/prosthetic consult to determine if the patient is ready for prosthesis. Antibiotic history: Per infectious disease Augmentin 875 mg every 12 hours (started 01/02-01/06) Clindamycin IV (12/22-12/28) Zosyn also discontinued (12/22-12/26) Antibiotics per ID: Unasyn IV every 6 hours discontinued ( 12/26-01/01) (2) Tardive dyskinesia Status: Resolved Plan: Improving. Likely 2/2 antipsychotic. Not disturbing to patient but he likes to work on electronics. Patient seen by psychiatry, Abilify discontinued. He started citalopram and Seroquel per their recommendations. Much improved since changes in medications were made. (3) Hypertension Status: Chronic Plan: Currently resolved off his blood pressure medications. Patient was on hydrochlorothiazide, SUMMER inhibitor, and amlodipine. We'll resume medications when necessary increased blood pressure. (4) Hyperlipidemia Status: Chronic Plan: Labs from 12/11 show elevated LDL of 120. 10 year ASCVD risk score is 12% - recommendation is for a high-intensity statin * Started atorvastatin (5) Thrombocytopenia Status: Acute Plan: Hematology consult. Continue to monitor. HIT antibody positive; see HIT problem Heparin discontinued (6) Anemia Status: Chronic Plan: Stable. Hematology consulted. Status post transfusion 4. Anemia workup unremarkable. (7) Stage 1 decubitus ulcer in diabetic patient Status: Acute Plan: Notified 01/03 at 11 AM of stage I decubitus at the patient's sacrum. On breakdown of epidermis, Stage 2 ulcer. Wound care nursing consulted Offload areas of pressure per protocol Continue to work with physical therapy Soft mattress order Further orders per wound care (8) Diabetes Status: Chronic Plan: Hemoglobin A1c on 12/11 was 6.9 Sliding scale insulin while in hospital. Patient has had diarrhea on metformin, likely will need to be discontinued as an outpatient and put on glipizide (9) Social issues Status: Acute Plan: Case management consulted to assist with disposition. Patient has no one to help care for him at home and is currently not safe for discharge. Details as above. Consider transfer to [place]. (10) Anxiety and depression Status: Acute Plan: Abilify discontinued. 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 HIT positive is likely a false positive result Continue to monitor platelets Patient has been started on fondaparinux per hematology Medical history: Heparin discontinued Argatroban discontinued per hematology (12) FEN/DVT PPX/GI PPX Status: Acute Plan: Fluids: None. Encouraged PO intake Electrolytes: Will monitor and replace as needed Nutrition: Diabetic diet DVT Prophylaxis: Fondaparinux per orthopedic surgery. Okay from hematology to be on heparin prophylactically because of false positive HIT. (13) UTI (urinary tract infection) Status: Resolved Plan: Urine culture growing Escherichia coli and Pseudomonas. Sensitivities in the EMR. Completed ceftriaxone for a total of 7 days; stop day 02/14 (14) TAYLOR (acute kidney injury) Status: Resolved Plan: Acute on chronic renal disease. Creatinine stable. DC IV fluids, encourage by mouth intake. Continue to monitor. (Freddie Barahona MD R2) Problem Qualifiers (1) Diabetic foot ulcer: Qualified Code: E11.621 - Diabetic ulcer of toe of left foot associated with type 2 diabetes mellitus, unspecified ulcer stage (2) Hypertension: Qualified Code: I10 - Essential hypertension (3) Hyperlipidemia: Qualified Code: E78.5 - Hyperlipidemia, unspecified hyperlipidemia type (4) Anemia: Qualified Code: D64.9 - Anemia, unspecified type (5) Diabetes: Freddie Barahona MD R2 Feb 14, 2017 09:39 Brigid Lenz MD Feb 15, 2017 15:57
[2017-02-14 12:00] VITALS: BP 149/70; PULSE 73; RESP 17; TEMP 96.8; O2SAT 99
[2017-02-14 16:00] VITALS: BP 148/67; PULSE 84; RESP 17; TEMP 98.4; O2SAT 97
--- NOTE | 2017-02-14 17:51 | PD.ORT.PN ---
Subjective Post Op Day #: 44 Subjective Remarks 6 weeks 2 days s/p left below knee amputation. Order was placed 3 weeks ago for pre-prosthetic evaluation by Dr Moctezuma (01/25/17 ). Pt states multiple prosthetists have spoken to him about treatment options but no formal evaluation/treatment has been performed yet. He is upright sitting in chair listening to music. Very pleasant. Dressings were removed for examination. Pt admits he has worked extensively with physical therapy. Awaiting rehab placement. Objective Vitals Vital Signs Date Time Temp Pulse Resp B/P Pulse Ox O2 Delivery O2 Flow Rate FiO2 02/14/17 16:00 98.4 84 17 148/67 97 02/14/17 12:00 96.8 73 17 149/70 99 02/14/17 08:00 96.8 76 17 131/63 99 02/14/17 00:00 97.3 76 18 121/62 97 02/13/17 20:00 98.0 74 18 136/66 99 I/O 02/13/17 02/13/17 02/13/17 02/14/17 02/14/17 02/14/17 07:00 15:00 23:00 07:00 15:00 23:00 Intake Total 360 ml 95 ml 320 ml 480 ml 460 ml Output Total 1000 ml 2125 ml 300 ml 1250 ml 800 ml Balance -640 ml -2030 ml 20 ml -770 ml -340 ml Intake Oral 360 ml 320 ml 480 ml 460 ml IV Total 95 ml 0 ml Output Urine Total 1000 ml 2125 ml 300 ml 1250 ml 800 ml # Bowel Movements 0 0 0 Result Diagram: 02/11/17 0436 02/11/17 0436 Imaging Last Impressions Renal Ultrasound 12/25/16 0000 Signed Impressions: Service Date/Time: Sunday, December 25, 2016 13:28 - CONCLUSION: 1. Unremarkable ultrasound examination of the kidneys. Hang Lin MD Foot X-Ray 12/23/16 0000 Signed Impressions: Service Date/Time: Friday, December 23, 2016 09:40 - CONCLUSION: Soft tissue swelling and post surgical changes. Laureano Grider MD Foot MRI 12/22/16 0000 Signed Impressions: Service Date/Time: Thursday, December 22, 2016 16:49 - CONCLUSION: 1. Diffuse marrow edema involving the remaining portion of the left 5th metatarsal with extensive overlying soft-tissue swelling. The findings raise the possibility of osteomyelitis of the 5th metatarsal and overlying cellulitis. Clinical correlation is recommended. 2. Questionable nondisplaced fractures involving the bases of the left 3rd and 4th metatarsals with some associated marrow edema. Shade Kee MD Chest X-Ray 12/21/16 0980 Signed Impressions: Service Date/Time: Wednesday, December 21, 2016 22:20 - CONCLUSION: No acute disease. Paramjit Bae MD Procedures Left below-knee amputation (01/01/17) Objective Remarks LLE: BKA. Dressing removed. Small areas of healing scabs noted - specifically one medial, midline and lateral. Small scabbing area noted 2 inches superficial to incision. Incision line has healed. Stump is warm with good cap refill. No blisters, erythema or ecchymosis noted. Mild dry skin noted. He is able to do a straight leg raise and bend his knee without difficulty. Small debridement was performed over 3 scabbing areas. Wound was cleansed and dressed appropriately. Assessment & Plan Ortho Post Op Day #: 44 Problem List: (1) Osteomyelitis of left foot (2) Sepsis (3) Anaerobic bacterial infection (4) Cellulitis (5) Diabetes (6) Hyperlipidemia Assessment and Plan Ortho status stable 6 weeks 2 days L BKA Small area of debridement was performed at bedside. Daily dressing changes - orders have been changed. Cleanse with betadine, saline and alcohol, wet 2x2 gauze over 3 scabbing areas, primapore ontop. [employer] order placed again for pre-prosthetic fitting evaluation. Ok to proceed forward from an orthopedic standpoint. Wear CKS at nighttime. No longer needs to be anticoagulated. Continue with rehab, up to chair. Clear for discharge from an orthopedic standpoint. F/U Dr Moctezuma upon discharge for wound check. Amaris Vidal Feb 14, 2017 17:51
[2017-02-14 20:00] VITALS: BP 138/65; PULSE 95; RESP 20; TEMP 96.9; O2SAT 100
[2017-02-14] MEDS: ATORVASTATIN 20 MG TAB PO SCH (20:25)
[2017-02-14] MEDS: QUEtiapine FUMARATE 25 MG TAB PO SCH (20:25)
[2017-02-14] MEDS: FONDAPARINUX SODIUM 2.5 MG/0.5 ML SYRINGE SQ SCH (20:25)
[2017-02-14] MEDS: HYDROCORTISONE 2.5% CREAM 30 GM TOPICAL SCH (21:00)
[2017-02-15] VITALS: BP 129/68; PULSE 84; RESP 18; TEMP 98; O2SAT 97
[2017-02-15] MEDS: CHLORHEXIDINE GLUCONATE 2 % 1 PACK (2 CLOTHS) TOP SCH (04:00)
[2017-02-15] MEDS: INSULIN ASPART SUPPLEMENTAL SCALE SQ SCH ×4 (05:34→21:00)
[2017-02-15 08:00] VITALS: BP 141/74; PULSE 72; RESP 17; TEMP 96.5; O2SAT 99
[2017-02-15] MEDS: SODIUM CHLORIDE 0.9% FLUSH 10 ML FLUSH IV FLUSH SCH ×2 (08:47→21:29)
[2017-02-15] MEDS: LACTOBACILLUS ACIDOPHILUS 1 GM PACKET PO SCH ×3 (08:47→17:52)
[2017-02-15] MEDS: CITALOPRAM HYDROBROMIDE 20 MG TAB PO SCH (08:47)
[2017-02-15] MEDS: MULTIVITAMINS/MINERALS THERAPEUTIC TAB PO SCH ×2 (08:47→21:27)
[2017-02-15] MEDS: MUPIROCIN 2% CREAM 15 GM TOPICAL SCH ×2 (08:47→21:00)
[2017-02-15 12:00] VITALS: BP 157/73; PULSE 71; RESP 17; TEMP 97.3; O2SAT 98
--- NOTE | 2017-02-15 14:45 | PD.CONS ---
[facility] Service Rehabilitation Medicine Consult Requested By Brigid Lai M.D. Reason for Consult Comprehensive rehabilitation evaluation. Primary Care Physician History of Present Illness Gold Botello is a 56-year-old right-hand dominant male mid [facility] with weakness and diarrhea. Sound have sepsis likely due to cellulitis. On 12/23/16 he underwent left foot and ankle incision and drainage and partial fifth metatarsal resection. He subsequently required left below the knee amputation 01/01/17. Hospital course has included anemia requiring transfusion and acute on chronic renal failure. Review of Systems Constitutional: COMPLAINS OF: Fatigue Eyes: DENIES: Diplopia Ears, nose, mouth, throat: DENIES: Hearing loss Respiratory: DENIES: Shortness of breath Cardiovascular: DENIES: Chest pain Gastrointestinal: COMPLAINS OF: Constipation, DENIES: Abdominal pain Genitourinary: DENIES: Urinary incontinence Integumentary: DENIES: Rash Hematologic/lymphatic: DENIES: Bruising Neurologic: DENIES: Headache, Localized weakness, Paresthesias (no phantom pain or sensation) Psychiatric: DENIES: Confusion Past Family Social History Allergies: Coded Allergies: No Known Allergies (Unverified , 12/06/16) Past Medical History Diabetes mellitus Depression/anxiety Hypertension Chronic left lower extremity wound Past Surgical History Toe amputation Current Medications Current Medications Medications (Trade) Dose Ordered Sig/Jeffy Route Start Time Stop Time Status Last Admin Miscellaneous Information 1 Q361D XX 12/22/16 01:45 12/22/16 01:45 (Chlorhexidine 2% Cloth) Taper DAILY@04 TOP 12/22/16 04:00 12/18/17 03:59 12/28/16 04:00 (Chlorhexidine 2% Cloth) 3 pack UNSCH PRN TOP 12/22/16 01:45 (D50w (Vial) Inj) 25 ml UNSCH PRN IV PUSH 12/22/16 15:45 (Glucagon Inj) 1 mg UNSCH PRN OTHER 12/22/16 15:45 (CeleXA) 20 mg DAILY PO 12/24/16 09:00 02/15/17 08:47 (Lactinex Pkt) 1 gm TID PO 12/30/16 13:00 02/15/17 12:46 (Bactroban 2% Cream) 1 applic Q12HR TOPICAL 12/30/16 11:45 02/14/17 08:43 (Apresoline Inj) 10 mg Q6H PRN IV 12/30/16 20:30 (Catapres) 0.1 mg Q6H PRN PO 01/01/17 19:00 01/09/17 08:24 (Apresoline) 10 mg QID PRN PO 01/01/17 18:30 (NS Flush) 2 ml UNSCH PRN IV FLUSH 01/01/17 22:15 (NS Flush) 2 ml BID IV FLUSH 01/02/17 09:00 02/14/17 20:25 (Arixtra Inj) 2.5 mg Q24H SQ 01/02/17 21:00 02/14/17 20:25 Miscellaneous Information UNSCH PRN XX 01/01/17 22:15 (Tylenol) 650 mg Q6H PRN PO 01/01/17 22:15 (Theragran M Tab) 1 tab BID PO 01/03/17 09:00 03/04/17 08:59 02/15/17 08:47 (Zofran Inj) 4 mg Q6H PRN IVP 01/01/17 22:15 (Mag-Al Plus Susp Liq) 30 ml Q6H PRN PO 01/01/17 22:15 (Restoril) 15 mg HS PRN PO 01/01/17 22:15 (Narcan Inj) 0.4 mg UNSCH PRN IV 01/01/17 22:15 (Benadryl) 25 mg Q6H PRN PO 01/01/17 22:15 01/06/17 22:45 (Flexeril) 10 mg Q8H PRN PO 01/04/17 07:00 01/06/17 17:45 (Myton 5-325 Mg) 2 tab Q4H PRN PO 01/07/17 09:15 01/17/17 14:01 (Myton 5-325 Mg) 1 tab Q4H PRN PO 01/07/17 09:15 01/12/17 20:54 (Lipitor) 20 mg HS PO 01/09/17 21:00 02/14/17 20:25 (Norvasc) 10 mg DAILY PO 01/10/17 09:00 Hold 01/30/17 08:38 (Eldecort 2.5% Cream) 1 applic HS TOPICAL 01/11/17 21:00 01/26/17 21:00 (Prinivil) 10 mg DAILY PO 01/17/17 09:15 Hold 01/30/17 08:37 (Lillian-Colace) 1 tab Q12H PRN PO 01/24/17 15:00 (SEROquel) 50 mg HS PO 01/30/17 21:00 02/14/17 20:25 Family History Noncontributory to the history of present illness Social History Prior to admission patient was living with his aunt in one story home with 2 steps to enter in [place], [place]. Exam I&O / VS 02/14/17 02/14/17 02/15/17 15:00 23:00 07:00 Intake Total 460 ml 480 ml 320 ml Output Total 800 ml 350 ml 1600 ml Balance -340 ml 130 ml -1280 ml Intake Oral 460 ml 480 ml 320 ml IV Total 0 ml Output Urine Total 800 ml 350 ml 1600 ml # Bowel Movements 0 1 0 Vital Signs Date Time Temp Pulse Resp B/P Pulse Ox O2 Delivery O2 Flow Rate FiO2 02/15/17 12:00 97.3 71 17 157/73 98 02/15/17 08:00 96.5 72 17 141/74 99 02/15/17 00:00 98.0 84 18 129/68 97 02/14/17 20:00 96.9 95 20 138/65 100 02/14/17 16:00 98.4 84 17 148/67 97 General: No acute distress Respiratory: Lungs CTA, Non-labored respirations, BS equal Gastrointestinal: Positive Bowel Sounds, Non-Distended, Non-Tender Cardiovascular: Normal rate, Regular Rhythm Skin: Incision (2 areas of eschar intact) Musculoskeletal: Swelling (localize to the residual left lower extremity) Psychiatric: Cooperative, Appropriate mood & affect Orientation: oriented to Self, oriented to Place, oriented to Time, oriented to Situation Neurologic: Cranial Nerves (intact 2 through 12) Motor: Right Upper Extremity (4+/5), Left Upper Extremity (4+/5), Right Lower Extremity (4+/5), Left Lower Extremity (full left knee range of motion/extension ) Sensory Intact in the left residual limb; decreased distal to the right ankle to light touch DTRs: Normal (bilateral upper extremities; deferred and lower extremities) Assessment and Plan Diagnosis: (1) History of left below knee amputation Assessment 1. Left below the knee amputation 01/01/17 2. Impaired mobility and ADLs Plan 1. Patient is progressing well with mobility and is now standby assist for transfers and ambulates 12 feet 2 standby assist with walker with physical therapy. Continue to mobilize anticipating patient will progress well 2. Occupational therapy is addressing ADLs and currently supervision except for lower body dressing which is min to mod assist 3. Left BKA postop pain is well-controlled and no phantom pain/sensation identified. Continue to monitor. Will request peer counselor to help with prosthetic education 4. Once incision is healed patient will benefit from prosthetic fabrication. We'll follow to assist 5. Case management is addressing discharge planning and has [facility] Will follow as an outpatient to assist with ongoing rehabilitation needs Thank you for this consult Chanell Alves MD Feb 15, 2017 14:45
[2017-02-15 16:00] VITALS: BP 126/64; PULSE 76; RESP 17; TEMP 98.2; O2SAT 96
[2017-02-15 20:00] VITALS: BP 145/60; PULSE 80; RESP 20; TEMP 96.2; O2SAT 99
[2017-02-15] MEDS: HYDROCORTISONE 2.5% CREAM 30 GM TOPICAL SCH (21:00)
[2017-02-15] MEDS: ATORVASTATIN 20 MG TAB PO SCH (21:27)
[2017-02-15] MEDS: FONDAPARINUX SODIUM 2.5 MG/0.5 ML SYRINGE SQ SCH (21:28)
[2017-02-15] MEDS: QUEtiapine FUMARATE 25 MG TAB PO SCH (21:28)
[2017-02-16] VITALS: BP 116/59; PULSE 74; RESP 20; TEMP 96; O2SAT 98
[2017-02-16] MEDS: CHLORHEXIDINE GLUCONATE 2 % 1 PACK (2 CLOTHS) TOP SCH (03:45)
[2017-02-16 04:00] VITALS: BP 121/65; PULSE 75; RESP 18; TEMP 95.6; O2SAT 97
[2017-02-16] MEDS: INSULIN ASPART SUPPLEMENTAL SCALE SQ SCH ×4 (05:44→20:40)
[2017-02-16 08:00] VITALS: BP 124/65; PULSE 71; RESP 18; TEMP 97.8; O2SAT 98
[2017-02-16] MEDS: LACTOBACILLUS ACIDOPHILUS 1 GM PACKET PO SCH ×4 (09:00→17:23)
--- NOTE | 2017-02-16 09:13 | HHI.FPPN ---
Subjective Remarks Patient doing well -- no concerns or compaints. AFVSS x past 24 hours. Waiting for placement into SNF so he can get rehab and eventually go home. Patient medically clear for discharge. (Jonnathan Louise MD R2) Objective Vitals Vital Signs Date Time Temp Pulse Resp B/P Pulse Ox O2 Delivery O2 Flow Rate FiO2 02/16/17 08:00 97.8 71 18 124/65 98 02/16/17 04:00 95.6 75 18 121/65 97 02/16/17 00:00 96.0 74 20 116/59 98 02/15/17 20:00 96.2 80 20 145/60 99 02/15/17 16:00 98.2 76 17 126/64 96 02/15/17 12:00 97.3 71 17 157/73 98 I/O 02/15/17 02/15/17 02/15/17 02/16/17 02/16/17 02/16/17 07:00 15:00 23:00 07:00 15:00 23:00 Intake Total 320 ml 460 ml 240 ml Output Total 1600 ml 1600 ml Balance -1280 ml -1140 ml 240 ml Intake Oral 320 ml 460 ml 240 ml Output Urine Total 1600 ml 1600 ml # Bowel Movements 0 0 1 (Jonnathan Louise MD R2) Objective Remarks GENERAL: NAD. SKIN: Status post left BKA. Incision clean/dry/intact. Sutures removed. HEAD: Atraumatic. Normocephalic. CARDIOVASCULAR: RRR RESPIRATORY: Clear to auscultation. Breath sounds equal bilaterally. No wheezes , rales, or rhonchi. GASTROINTESTINAL: Abdomen soft, non-tender, nondistended. No hepato-splenomegaly , or palpable masses. No guarding. MUSCULOSKELETAL: Status post left BKA. Incision clean/dry/intact and well healing. NEUROLOGICAL: Awake and alert. Cranial nerves grossly intact. PSYCH: Normal mood and affect Procedures Left foot ankle incision and drainage with partial resection of the fifth metatarsal head Left BKA (Jonnathan Louise MD R2) A/P Assessment and Plan 56-year-old male with a past medical history of complicated type 2 diabetes presented meeting sepsis criteria with diabetic left foot wound. 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 Requested physical therapy to work with the patient twice a day Discharge Planning Patient cleared from orthopedic standpoint. Patient cleared for SNF with PT however his Medicaid will not cover this. He needs continued physical therapy and is currently not safe for discharge. [facility] has evaluated the patient very early during his hospitalization and did not accept him. The patient will be discharged once he is able to care for himself safely with outpatient physical therapy. Case management continues to look for a Medicaid bed. (Jonnathan Louise MD R2) Attending Attestation Patient seen and examined. Case reviewed and discussed with the resident team. Agree with plan of care as discussed with me and documented in the resident note. he is doing his rehab here and making progress towards going home probably next week as long as OT and PT feel he is ready (Brigid Lenz MD) Problem List: (1) Diabetic foot ulcer Status: Chronic Plan: Status post BKA on 12/23/16 for diabetic foot ulcer with osteomyelitis. Antibiotic history is documented below. Patient cleared for rehabilitation, placement issues as above. Consult rehabilitation medicine, Dr. Long Herrera/orthopedic/prosthetic consult to determine if the patient is ready for prosthesis. Antibiotic history: Per infectious disease Augmentin 875 mg every 12 hours (started 01/02-01/06) Clindamycin IV (12/22-12/28) Zosyn also discontinued (12/22-12/26) Antibiotics per ID: Unasyn IV every 6 hours discontinued ( 12/26-01/01) (2) Tardive dyskinesia Status: Resolved Plan: Improving. Likely 2/2 antipsychotic. Not disturbing to patient but he likes to work on electronics. Patient seen by psychiatry, Sherlylidamon discontinued. He started citalopram and Seroquel per their recommendations. Much improved since changes in medications were made. (3) Hypertension Status: Chronic Plan: Currently resolved off his blood pressure medications. Patient was on hydrochlorothiazide, SUMMER inhibitor, and amlodipine. We'll resume medications when necessary increased blood pressure. (4) Hyperlipidemia Status: Chronic Plan: Labs from 12/11 show elevated LDL of 120. 10 year ASCVD risk score is 12% - recommendation is for a high-intensity statin * Started atorvastatin (5) Thrombocytopenia Status: Acute Plan: Hematology consult. Continue to monitor. HIT antibody positive; see HIT problem Heparin discontinued (6) Anemia Status: Chronic Plan: Stable. Hematology consulted. Status post transfusion 4. Anemia workup unremarkable. (7) Stage 1 decubitus ulcer in diabetic patient Status: Acute Plan: Notified 01/03 at 11 AM of stage I decubitus at the patient's sacrum. On breakdown of epidermis, Stage 2 ulcer. Wound care nursing consulted Offload areas of pressure per protocol Continue to work with physical therapy Soft mattress order Further orders per wound care (8) Diabetes Status: Chronic Plan: Hemoglobin A1c on 12/11 was 6.9 Sliding scale insulin while in hospital. Patient has had diarrhea on metformin, likely will need to be discontinued as an outpatient and put on glipizide (9) Social issues Status: Acute Plan: Case management consulted to assist with disposition. Patient has no one to help care for him at home and is currently not safe for discharge. Details as above. Consider transfer to [place]. (10) Anxiety and depression Status: Acute Plan: Abilify discontinued. 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 HIT positive is likely a false positive result Continue to monitor platelets Patient has been started on fondaparinux per hematology Medical history: Heparin discontinued Argatroban discontinued per hematology (12) UTI (urinary tract infection) Status: Resolved Plan: Urine culture growing Escherichia coli and Pseudomonas. Sensitivities in the EMR. Completed ceftriaxone for a total of 7 days; stop day 7/6 (13) TAYLOR (acute kidney injury) Status: Resolved Plan: Acute on chronic renal disease. Creatinine stable. DC IV fluids, encourage by mouth intake. Continue to monitor. (14) FEN/DVT PPX/GI PPX Status: Acute Plan: Fluids: None. Encouraged PO intake Electrolytes: Will monitor and replace as needed Nutrition: Diabetic diet DVT Prophylaxis: Fondaparinux per orthopedic surgery. Okay from hematology to be on heparin prophylactically because of false positive HIT. (Jonnathan Louise MD R2) Problem Qualifiers (1) Diabetic foot ulcer: Qualified Code: E11.621 - Diabetic ulcer of toe of left foot associated with type 2 diabetes mellitus, unspecified ulcer stage (2) Hypertension: Qualified Code: I10 - Essential hypertension (3) Hyperlipidemia: Qualified Code: E78.5 - Hyperlipidemia, unspecified hyperlipidemia type (4) Anemia: Qualified Code: D64.9 - Anemia, unspecified type (5) Diabetes: Jonnathan Louise MD R2 Feb 16, 2017 09:13 Brigid Lenz MD Feb 16, 2017 13:21
[2017-02-16] MEDS: CITALOPRAM HYDROBROMIDE 20 MG TAB PO SCH (09:38)
[2017-02-16] MEDS: MULTIVITAMINS/MINERALS THERAPEUTIC TAB PO SCH ×2 (09:38→20:39)
[2017-02-16 12:00] VITALS: BP 143/76; PULSE 75; RESP 19; TEMP 98.3; O2SAT 99
[2017-02-16 16:00] VITALS: BP 158/76; PULSE 75; RESP 19; TEMP 98.9; O2SAT 99
[2017-02-16 20:00] VITALS: BP 156/76; PULSE 78; RESP 20; TEMP 98.1; O2SAT 97
[2017-02-16] MEDS: QUEtiapine FUMARATE 25 MG TAB PO SCH (20:39)
[2017-02-16] MEDS: ATORVASTATIN 20 MG TAB PO SCH (20:39)
[2017-02-16] MEDS: FONDAPARINUX SODIUM 2.5 MG/0.5 ML SYRINGE SQ SCH (20:40)
[2017-02-16] MEDS: SODIUM CHLORIDE 0.9% FLUSH 10 ML FLUSH IV FLUSH SCH (20:40)
[2017-02-16] MEDS: MUPIROCIN 2% CREAM 15 GM TOPICAL SCH (20:40)
[2017-02-16] MEDS: HYDROCORTISONE 2.5% CREAM 30 GM TOPICAL SCH (20:41)
[2017-02-17] MEDS: CHLORHEXIDINE GLUCONATE 2 % 1 PACK (2 CLOTHS) TOP SCH (03:31)
[2017-02-17 03:59] VITALS: BP 135/69; PULSE 75; RESP 20; TEMP 96.6; O2SAT 99
[2017-02-17] MEDS: INSULIN ASPART SUPPLEMENTAL SCALE SQ SCH ×4 (05:07→21:00)
[2017-02-17 08:00] VITALS: BP 141/68; PULSE 69; RESP 17; TEMP 97.2; O2SAT 99
[2017-02-17] MEDS: MUPIROCIN 2% CREAM 15 GM TOPICAL SCH ×2 (09:00→21:00)
[2017-02-17] MEDS: SODIUM CHLORIDE 0.9% FLUSH 10 ML FLUSH IV FLUSH SCH ×2 (09:00→21:00)
[2017-02-17] MEDS: LACTOBACILLUS ACIDOPHILUS 1 GM PACKET PO SCH ×3 (09:00→17:39)
[2017-02-17] MEDS: CITALOPRAM HYDROBROMIDE 20 MG TAB PO SCH (09:19)
[2017-02-17] MEDS: MULTIVITAMINS/MINERALS THERAPEUTIC TAB PO SCH ×2 (09:19→21:08)
--- NOTE | 2017-02-17 10:00 | HHI.FPPN ---
Subjective Remarks No acute changes, concerns or questions. AFVSS - awaiting placement into SNF. ( Jonnathan Louise MD R2) Objective Vitals Vital Signs Date Time Temp Pulse Resp B/P Pulse Ox O2 Delivery O2 Flow Rate FiO2 02/17/17 08:00 97.2 69 17 141/68 99 02/17/17 03:59 96.6 75 20 135/69 99 02/16/17 20:00 98.1 78 20 156/76 97 02/16/17 16:00 98.9 75 19 158/76 99 02/16/17 12:00 98.3 75 19 143/76 99 I/O 02/16/17 02/16/17 02/16/17 02/17/17 02/17/17 02/17/17 07:00 15:00 23:00 07:00 15:00 23:00 Intake Total 1200 ml 380 ml 90 ml Output Total 950 ml 800 ml 300 ml 950 ml Balance 250 ml -420 ml -210 ml -950 ml Intake Oral 1200 ml 380 ml 90 ml Output Urine Total 950 ml 800 ml 300 ml 950 ml # Bowel Movements 0 0 (Jonnathan Louise MD R2) Objective Remarks GENERAL: NAD. SKIN: Status post left BKA. Incision clean/dry/intact. Sutures removed. HEAD: Atraumatic. Normocephalic. CARDIOVASCULAR: RRR RESPIRATORY: Clear to auscultation. Breath sounds equal bilaterally. No wheezes , rales, or rhonchi. GASTROINTESTINAL: Abdomen soft, non-tender, nondistended. No hepato-splenomegaly , or palpable masses. No guarding. MUSCULOSKELETAL: Status post left BKA. Incision clean/dry/intact and well healing. NEUROLOGICAL: Awake and alert. Cranial nerves grossly intact. PSYCH: Normal mood and affect Procedures Left foot ankle incision and drainage with partial resection of the fifth metatarsal head Left BKA (Jonnathan Louise MD R2) A/P Assessment and Plan 56-year-old male with a past medical history of complicated type 2 diabetes presented meeting sepsis criteria with diabetic left foot wound. 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 Requested physical therapy to work with the patient twice a day Discharge Planning Patient cleared from orthopedic standpoint. Patient cleared for SNF with PT however his Medicaid will not cover this. He needs continued physical therapy and is currently not safe for discharge. [facility] has evaluated the patient very early during his hospitalization and did not accept him. The patient will be discharged once he is able to care for himself safely with outpatient physical therapy. Case management continues to look for a Medicaid bed. (Jonnathan Louise MD R2) Attending Attestation Patient seen and examined. Case reviewed and discussed with the resident team. Agree with plan of care as discussed with me and documented in the resident note. completing his rehab hope he can go home within the week. he is doing very well (Brigid Lenz MD) Problem List: (1) Diabetic foot ulcer Status: Chronic Plan: Status post BKA on 12/23/16 for diabetic foot ulcer with osteomyelitis. Antibiotic history is documented below. Patient cleared for rehabilitation, placement issues as above. Consult rehabilitation medicine, Dr. Alves [employer]/orthopedic/prosthetic consult to determine if the patient is ready for prosthesis. Antibiotic history: Per infectious disease Augmentin 875 mg every 12 hours (started 01/02-01/06) Clindamycin IV (12/22-12/28) Zosyn also discontinued (12/22-12/26) Antibiotics per ID: Unasyn IV every 6 hours discontinued ( 12/26-01/01) (2) Tardive dyskinesia Status: Resolved Plan: Improving. Likely 2/2 antipsychotic. Not disturbing to patient but he likes to work on electronics. Patient seen by psychiatry, Ariel discontinued. He started citalopram and Seroquel per their recommendations. Much improved since changes in medications were made. (3) Hypertension Status: Chronic Plan: Currently resolved off his blood pressure medications. Patient was on hydrochlorothiazide, SUMMER inhibitor, and amlodipine. We'll resume medications when necessary increased blood pressure. (4) Hyperlipidemia Status: Chronic Plan: Labs from 12/11 show elevated LDL of 120. 10 year ASCVD risk score is 12% - recommendation is for a high-intensity statin * Started atorvastatin (5) Thrombocytopenia Status: Acute Plan: Hematology consult. Continue to monitor. HIT antibody positive; see HIT problem Heparin discontinued (6) Anemia Status: Chronic Plan: Stable. Hematology consulted. Status post transfusion 4. Anemia workup unremarkable. (7) Stage 1 decubitus ulcer in diabetic patient Status: Acute Plan: Notified 01/03 at 11 AM of stage I decubitus at the patient's sacrum. On breakdown of epidermis, Stage 2 ulcer. Wound care nursing consulted Offload areas of pressure per protocol Continue to work with physical therapy Soft mattress order Further orders per wound care (8) Diabetes Status: Chronic Plan: Hemoglobin A1c on 12/11 was 6.9 Sliding scale insulin while in hospital. Patient has had diarrhea on metformin, likely will need to be discontinued as an outpatient and put on glipizide (9) Social issues Status: Acute Plan: Case management consulted to assist with disposition. Patient has no one to help care for him at home and is currently not safe for discharge. Details as above. Consider transfer to [place]. (10) Anxiety and depression Status: Acute Plan: Abilify discontinued. 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 HIT positive is likely a false positive result Continue to monitor platelets Patient has been started on fondaparinux per hematology Medical history: Heparin discontinued Argatroban discontinued per hematology (12) UTI (urinary tract infection) Status: Resolved Plan: Urine culture growing Escherichia coli and Pseudomonas. Sensitivities in the EMR. Completed ceftriaxone for a total of 7 days; stop day 02/14 (13) TAYLOR (acute kidney injury) Status: Resolved Plan: Acute on chronic renal disease. Creatinine stable. DC IV fluids, encourage by mouth intake. Continue to monitor. (14) FEN/DVT PPX/GI PPX Status: Acute Plan: Fluids: None. Encouraged PO intake Electrolytes: Will monitor and replace as needed Nutrition: Diabetic diet DVT Prophylaxis: Fondaparinux per orthopedic surgery. Okay from hematology to be on heparin prophylactically because of false positive HIT. (Jonnathan Louise MD R2) Problem Qualifiers (1) Diabetic foot ulcer: Qualified Code: E11.621 - Diabetic ulcer of toe of left foot associated with type 2 diabetes mellitus, unspecified ulcer stage (2) Hypertension: Qualified Code: I10 - Essential hypertension (3) Hyperlipidemia: Qualified Code: E78.5 - Hyperlipidemia, unspecified hyperlipidemia type (4) Anemia: Qualified Code: D64.9 - Anemia, unspecified type (5) Diabetes: Jonnathan Louise MD R2 Feb 17, 2017 10:00 Brigid Lenz MD Feb 17, 2017 13:23
[2017-02-17 12:00] VITALS: BP 137/69; PULSE 74; RESP 18; TEMP 97.7; O2SAT 98
[2017-02-17 16:00] VITALS: BP 140/68; PULSE 77; RESP 18; TEMP 97.4; O2SAT 97
[2017-02-17 20:00] VITALS: BP 147/74; PULSE 77; RESP 18; TEMP 98.7; O2SAT 94
[2017-02-17] MEDS: HYDROCORTISONE 2.5% CREAM 30 GM TOPICAL SCH (21:00)
[2017-02-17] MEDS: FONDAPARINUX SODIUM 2.5 MG/0.5 ML SYRINGE SQ SCH (21:08)
[2017-02-17] MEDS: QUEtiapine FUMARATE 25 MG TAB PO SCH (21:08)
[2017-02-17] MEDS: ATORVASTATIN 20 MG TAB PO SCH (21:08)
[2017-02-17 22:52] VITALS: BP 151/77; PULSE 77; RESP 18; TEMP 97.4; O2SAT 98
[2017-02-18] MEDS: CHLORHEXIDINE GLUCONATE 2 % 1 PACK (2 CLOTHS) TOP SCH (04:00)
[2017-02-18] MEDS: INSULIN ASPART SUPPLEMENTAL SCALE SQ SCH ×4 (05:47→21:00)
[2017-02-18 06:47] LABS: AUTOMATED NEUTROPHIL # 2.2 TH/MM3 (1.8-7.7); BASOPHIL % 0.6 % (0.0-2.0); EOSINOPHIL # 0.3 TH/MM3 (0-0.4); EOSINOPHIL % 5.6 % (0.0-4.0); HEMATOCRIT 28.8 % (39.0-51.0); HEMO FLAGS DIFF FINAL; LYMPH % 34.3 % (9.0-44.0); LYMPHOCYTE # 1.9 TH/MM3 (1.0-4.8); MEAN CELL VOLUME 93.5 FL (80.0-100.0); MEAN CORPUSCULAR HEMOGLOBIN 30.9 PG (27.0-34.0); MEAN CORPUSCULAR HGB CONC 33.1 % (32.0-36.0); MONO % 19.8 % (0.0-8.0); NEUT % 39.7 % (16.0-70.0); PLATELET COUNT 109 TH/MM3 (150-450); RED BLOOD COUNT 3.08 MIL/MM3 (4.50-5.90); RED CELL DISTRIBUTION WIDTH 19.8 % (11.6-17.2); WHITE BLOOD COUNT 5.6 TH/MM3 (4.0-11.0)
[2017-02-18 07:05] LABS: BICARBONATE 21.4 MEQ/L (21.0-32.0); POTASSIUM 5.1 MEQ/L (3.5-5.1)
[2017-02-18 08:00] VITALS: BP 146/72; PULSE 70; RESP 18; TEMP 95.6; O2SAT 95
[2017-02-18] MEDS: MUPIROCIN 2% CREAM 15 GM TOPICAL SCH ×2 (09:00→21:00)
[2017-02-18] MEDS: SODIUM CHLORIDE 0.9% FLUSH 10 ML FLUSH IV FLUSH SCH ×2 (09:00→21:00)
[2017-02-18] MEDS: MULTIVITAMINS/MINERALS THERAPEUTIC TAB PO SCH ×2 (09:27→21:05)
[2017-02-18] MEDS: LACTOBACILLUS ACIDOPHILUS 1 GM PACKET PO SCH ×3 (09:27→17:22)
[2017-02-18] MEDS: CITALOPRAM HYDROBROMIDE 20 MG TAB PO SCH (09:27)
--- NOTE | 2017-02-18 09:46 | HHI.FPPN ---
Subjective Remarks No changes. Patient doing well. Denies headache, nausea, vomiting, fever, chills, shortness of breath. (Freddie Barahona MD R2) Objective Vitals Vital Signs Date Time Temp Pulse Resp B/P Pulse Ox O2 Delivery O2 Flow Rate FiO2 02/17/17 22:52 97.4 77 18 151/77 98 02/17/17 20:00 98.7 77 18 147/74 94 02/17/17 16:00 97.4 77 18 140/68 97 02/17/17 12:00 97.7 74 18 137/69 98 I/O 02/17/17 02/17/17 02/17/17 02/18/17 02/18/17 02/18/17 07:00 15:00 23:00 07:00 15:00 23:00 Intake Total 90 ml 600 ml 360 ml 480 ml Output Total 300 ml 1850 ml 900 ml 1000 ml Balance -210 ml -1250 ml -540 ml -520 ml Intake Oral 90 ml 600 ml 360 ml 480 ml IV Total 0 ml Output Urine Total 300 ml 1850 ml 900 ml 1000 ml # Voids 0 # Bowel Movements 0 0 0 (Freddie Barahona MD R2) Result Diagram: 02/18/1752002/18/17520 Objective Remarks GENERAL: NAD. SKIN: Status post left BKA. Incision clean/dry/intact. Sutures removed. HEAD: Atraumatic. Normocephalic. CARDIOVASCULAR: RRR RESPIRATORY: Clear to auscultation. Breath sounds equal bilaterally. No wheezes , rales, or rhonchi. GASTROINTESTINAL: Abdomen soft, non-tender, nondistended. No hepato-splenomegaly , or palpable masses. No guarding. MUSCULOSKELETAL: Status post left BKA. Incision clean/dry/intact and well healing. NEUROLOGICAL: Awake and alert. Cranial nerves grossly intact. PSYCH: Normal mood and affect Procedures Left foot ankle incision and drainage with partial resection of the fifth metatarsal head Left BKA (Freddie Barahona MD R2) A/P Assessment and Plan 56-year-old male with a past medical history of complicated type 2 diabetes presented meeting sepsis criteria with diabetic left foot wound. 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 Rehabilitation medicine consulted and is helping with discharge needs Discharge Planning Patient cleared from orthopedic standpoint. Patient cleared for SNF with PT however his Medicaid will not cover this. He needs continued physical therapy and is currently not safe for discharge. [facility] has evaluated the patient very early during his hospitalization and did not accept him. The patient will be discharged once he is able to care for himself safely with outpatient physical therapy. Case management continues to look for a Medicaid bed. (Freddie Barahona MD R2) Attending Attestation Patient seen and examined. Case reviewed and discussed with the resident team. Agree with plan of care as discussed with me and documented in the resident note. Shared goals: safety and discharge to home. 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 Antibiotic history is documented below. Patient cleared for rehabilitation, placement issues as above. Consult rehabilitation medicine, Dr. Alves [employer]/orthopedic/prosthetic consult to determine if the patient is ready for prosthesis. Antibiotic history: Per infectious disease Augmentin 875 mg every 12 hours (started 01/02-01/06) Clindamycin IV (12/22-12/28) Zosyn also discontinued (12/22-12/26) Antibiotics per ID: Unasyn IV every 6 hours discontinued ( 12/26-01/01) (2) Tardive dyskinesia Status: Resolved Plan: Improving. Likely 2/2 antipsychotic. Not disturbing to patient but he likes to work on electronics. Patient seen by psychiatry, Abilify discontinued. He started citalopram and Seroquel per their recommendations. Much improved since changes in medications were made. (3) Hypertension Status: Chronic Plan: Currently resolved off his blood pressure medications. Patient was on hydrochlorothiazide, SUMMER inhibitor, and amlodipine. We'll resume medications when necessary increased blood pressure. (4) Hyperlipidemia Status: Chronic Plan: Labs from 12/11 show elevated LDL of 120. 10 year ASCVD risk score is 12% - recommendation is for a high-intensity statin * Started atorvastatin (5) Thrombocytopenia Status: Acute Plan: Hematology consult. Continue to monitor. HIT antibody positive; see HIT problem Heparin discontinued (6) Anemia Status: Chronic Plan: Stable. Hematology consulted. Status post transfusion 4. Anemia workup unremarkable. (7) Stage 1 decubitus ulcer in diabetic patient Status: Acute Plan: Notified 01/03 at 11 AM of stage I decubitus at the patient's sacrum. On breakdown of epidermis, Stage 2 ulcer. Wound care nursing consulted Offload areas of pressure per protocol Continue to work with physical therapy Soft mattress order Further orders per wound care (8) Diabetes Status: Chronic Plan: Hemoglobin A1c on 12/11 was 6.9 Sliding scale insulin while in hospital. Patient has had diarrhea on metformin, likely will need to be discontinued as an outpatient and put on glipizide (9) Social issues Status: Acute Plan: Case management consulted to assist with disposition. Patient has no one to help care for him at home and is currently not safe for discharge. Details as above. Consider transfer to [place]. (10) Anxiety and depression Status: Acute Plan: Abilify discontinued. 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 HIT positive is likely a false positive result Continue to monitor platelets Patient has been started on fondaparinux per hematology Medical history: Heparin discontinued Argatroban discontinued per hematology (12) TAYLOR (acute kidney injury) Status: Resolved Plan: Acute on chronic renal disease. Creatinine stable. DC IV fluids, encourage by mouth intake. Continue to monitor. (13) FEN/DVT PPX/GI PPX Status: Acute Plan: Fluids: None. Encouraged PO intake Electrolytes: Will monitor and replace as needed Nutrition: Diabetic diet DVT Prophylaxis: Fondaparinux per orthopedic surgery. Okay from hematology to be on heparin prophylactically because of false positive HIT. (Freddie Barahona MD R2) Problem Qualifiers (1) Diabetic foot ulcer: Qualified Code: E11.621 - Diabetic ulcer of toe of left foot associated with type 2 diabetes mellitus, unspecified ulcer stage (2) Hypertension: Qualified Code: I10 - Essential hypertension (3) Hyperlipidemia: Qualified Code: E78.5 - Hyperlipidemia, unspecified hyperlipidemia type (4) Anemia: Qualified Code: D64.9 - Anemia, unspecified type (5) Diabetes: Freddie Barahona MD R2 Feb 18, 2017 09:46 Shereen Barahona MD Feb 18, 2017 11:43
[2017-02-18 12:18] VITALS: BP 102/57; PULSE 79; RESP 18; TEMP 98.1; O2SAT 97
[2017-02-18 16:00] VITALS: BP 125/58; PULSE 80; RESP 18; TEMP 99.1; O2SAT 98
[2017-02-18 20:00] VITALS: BP 140/68; PULSE 81; RESP 19; TEMP 98; O2SAT 95
[2017-02-18] MEDS: HYDROCORTISONE 2.5% CREAM 30 GM TOPICAL SCH (21:00)
[2017-02-18] MEDS: QUEtiapine FUMARATE 25 MG TAB PO SCH (21:05)
[2017-02-18] MEDS: FONDAPARINUX SODIUM 2.5 MG/0.5 ML SYRINGE SQ SCH (21:05)
[2017-02-18] MEDS: ATORVASTATIN 20 MG TAB PO SCH (21:05)
[2017-02-18 23:33] VITALS: BP 147/76; PULSE 77; RESP 19; TEMP 96.4; O2SAT 96
[2017-02-19] MEDS: CHLORHEXIDINE GLUCONATE 2 % 1 PACK (2 CLOTHS) TOP SCH (02:36)
[2017-02-19] MEDS: INSULIN ASPART SUPPLEMENTAL SCALE SQ SCH ×4 (06:25→20:28)
[2017-02-19 08:00] VITALS: BP 153/72; PULSE 71; RESP 18; TEMP 95.6; O2SAT 99
[2017-02-19] MEDS: LACTOBACILLUS ACIDOPHILUS 1 GM PACKET PO SCH ×3 (09:00→17:34)
[2017-02-19] MEDS: SODIUM CHLORIDE 0.9% FLUSH 10 ML FLUSH IV FLUSH SCH ×2 (09:00→19:35)
[2017-02-19] MEDS: MUPIROCIN 2% CREAM 15 GM TOPICAL SCH ×2 (09:00→21:00)
--- NOTE | 2017-02-19 09:02 | HHI.FPPN ---
Subjective Remarks No changes. Denies fever, chills, nausea, vomiting (Freddie Barahona MD R2) Objective Vitals Vital Signs Date Time Temp Pulse Resp B/P Pulse Ox O2 Delivery O2 Flow Rate FiO2 02/18/17 23:33 96.4 77 19 147/76 96 02/18/17 20:00 98.0 81 19 140/68 95 02/18/17 16:00 99.1 80 18 125/58 98 02/18/17 12:18 98.1 79 18 102/57 97 I/O 02/18/17 02/18/17 02/18/17 02/19/17 02/19/17 02/19/17 07:00 15:00 23:00 07:00 15:00 23:00 Intake Total 480 ml 480 ml 360 ml 240 ml Output Total 1000 ml 800 ml 1500 ml Balance -520 ml 480 ml -440 ml -1260 ml Intake Oral 480 ml 480 ml 360 ml 240 ml Output Urine Total 1000 ml 800 ml 1500 ml # Voids 0 # Bowel Movements 1 0 0 (Freddie Barahona MD R2) Result Diagram: 02/18/1752002/18/17520 Objective Remarks GENERAL: NAD. SKIN: Status post left BKA. Incision clean/dry/intact. Sutures removed. HEAD: Atraumatic. Normocephalic. CARDIOVASCULAR: RRR RESPIRATORY: Clear to auscultation. Breath sounds equal bilaterally. No wheezes , rales, or rhonchi. GASTROINTESTINAL: Abdomen soft, non-tender, nondistended. No hepato-splenomegaly , or palpable masses. No guarding. MUSCULOSKELETAL: Status post left BKA. Incision clean/dry/intact and well healing. NEUROLOGICAL: Awake and alert. Cranial nerves grossly intact. PSYCH: Normal mood and affect Procedures Left foot ankle incision and drainage with partial resection of the fifth metatarsal head Left BKA (Freddie Barahona MD R2) A/P Assessment and Plan 56-year-old male with a past medical history of complicated type 2 diabetes presented meeting sepsis criteria with diabetic left foot wound. 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 Rehabilitation medicine consulted and is helping with discharge needs Discharge Planning Patient cleared from orthopedic standpoint. Patient cleared for SNF with PT however his Medicaid will not cover this. He needs continued physical therapy and is currently not safe for discharge. [facility] has evaluated the patient very early during his hospitalization and did not accept him. The patient will be discharged once he is able to care for himself safely with outpatient physical therapy. Case management continues to look for a Medicaid bed. (Freddie Barahona MD R2) Attending Attestation Patient seen and examined. Case reviewed and discussed with the resident team. Agree with plan of care as discussed with me and documented in the resident note. 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 Antibiotic history is documented below. Patient cleared for rehabilitation, placement issues as above. Consult rehabilitation medicine, Dr. Alves--> helping to assess readiness for discharge home [employer]/orthopedic/prosthetic consult to determine if the patient is ready for prosthesis. Antibiotic history: Per infectious disease Augmentin 875 mg every 12 hours (started 01/02-01/06) Clindamycin IV (12/22-12/28) Zosyn also discontinued (12/22-12/26) Antibiotics per ID: Unasyn IV every 6 hours discontinued ( 12/26-01/01) (2) Tardive dyskinesia Status: Resolved Plan: Improving. Likely 2/ antipsychotic. Not disturbing to patient but he likes to work on electronics. Patient seen by psychiatry, Ariel discontinued. He started citalopram and Seroquel per their recommendations. Much improved since changes in medications were made. (3) Hypertension Status: Chronic Plan: Currently resolved off his blood pressure medications. Patient was on hydrochlorothiazide, SUMMER inhibitor, and amlodipine. We'll resume medications when necessary increased blood pressure. (4) Hyperlipidemia Status: Chronic Plan: Labs from 12/11 show elevated LDL of 120. 10 year ASCVD risk score is 12% - recommendation is for a high-intensity statin * Started atorvastatin (5) Thrombocytopenia Status: Acute Plan: Hematology consult. Continue to monitor. HIT antibody positive; see HIT problem Heparin discontinued (6) Anemia Status: Chronic Plan: Stable. Hematology consulted. Status post transfusion 4. Anemia workup unremarkable. (7) Stage 1 decubitus ulcer in diabetic patient Status: Acute Plan: Notified 01/03 at 11 AM of stage I decubitus at the patient's sacrum. On breakdown of epidermis, Stage 2 ulcer. Wound care nursing consulted Offload areas of pressure per protocol Continue to work with physical therapy Soft mattress order Further orders per wound care (8) Diabetes Status: Chronic Plan: Hemoglobin A1c on 12/11 was 6.9 Sliding scale insulin while in hospital. Patient has had diarrhea on metformin, likely will need to be discontinued as an outpatient and put on glipizide (9) Social issues Status: Acute Plan: Case management consulted to assist with disposition. Patient has no one to help care for him at home and is currently not safe for discharge. Details as above. Consider transfer to [place]. (10) Anxiety and depression Status: Acute Plan: Abilify discontinued. 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 HIT positive is likely a false positive result Continue to monitor platelets Patient has been started on fondaparinux per hematology Medical history: Heparin discontinued Argatroban discontinued per hematology (12) TAYLOR (acute kidney injury) Status: Resolved Plan: Acute on chronic renal disease. Creatinine stable. DC IV fluids, encourage by mouth intake. Continue to monitor. (13) FEN/DVT PPX/GI PPX Status: Acute Plan: Fluids: None. Encouraged PO intake Electrolytes: Will monitor and replace as needed Nutrition: Diabetic diet DVT Prophylaxis: Fondaparinux per orthopedic surgery. Okay from hematology to be on heparin prophylactically because of false positive HIT. (Freddie Barahona MD R2) Problem Qualifiers (1) Diabetic foot ulcer: Qualified Code: E11.621 - Diabetic ulcer of toe of left foot associated with type 2 diabetes mellitus, unspecified ulcer stage (2) Hypertension: Qualified Code: I10 - Essential hypertension (3) Hyperlipidemia: Qualified Code: E78.5 - Hyperlipidemia, unspecified hyperlipidemia type (4) Anemia: Qualified Code: D64.9 - Anemia, unspecified type (5) Diabetes: Freddie Barahona MD R2 Feb 19, 2017 09:02 Shereen Barahona MD Feb 19, 2017 17:48
[2017-02-19] MEDS: CITALOPRAM HYDROBROMIDE 20 MG TAB PO SCH (09:26)
[2017-02-19] MEDS: MULTIVITAMINS/MINERALS THERAPEUTIC TAB PO SCH ×2 (09:27→20:26)
[2017-02-19 12:00] VITALS: BP 150/70; PULSE 84; RESP 20; TEMP 97.4; O2SAT 99
[2017-02-19 16:00] VITALS: BP 155/70; PULSE 80; RESP 20; TEMP 98.6; O2SAT 97
[2017-02-19 20:00] VITALS: BP 138/66; PULSE 82; RESP 19; TEMP 98.3; O2SAT 96
[2017-02-19] MEDS: ATORVASTATIN 20 MG TAB PO SCH (20:26)
[2017-02-19] MEDS: QUEtiapine FUMARATE 25 MG TAB PO SCH (20:26)
[2017-02-19] MEDS: FONDAPARINUX SODIUM 2.5 MG/0.5 ML SYRINGE SQ SCH (20:26)
[2017-02-19] MEDS: HYDROCORTISONE 2.5% CREAM 30 GM TOPICAL SCH (21:00)
[2017-02-20] VITALS: BP 149/70; PULSE 82; RESP 19; TEMP 97.1; O2SAT 99
[2017-02-20] MEDS: CHLORHEXIDINE GLUCONATE 2 % 1 PACK (2 CLOTHS) TOP SCH (03:51)
[2017-02-20] MEDS: INSULIN ASPART SUPPLEMENTAL SCALE SQ SCH ×3 (05:27→16:00)
[2017-02-20] MEDS: SODIUM CHLORIDE 0.9% FLUSH 10 ML FLUSH IV FLUSH SCH (07:51)
[2017-02-20 08:00] VITALS: BP 149/70; PULSE 77; RESP 18; TEMP 96.9; O2SAT 98
--- NOTE | 2017-02-20 08:48 | HHI.FPPN ---
Subjective Remarks No acute events. Patient denies fever, chills, nausea, vomiting, shortness of breath, headache. (Freddie Barahona MD R2) Objective Vitals Vital Signs Date Time Temp Pulse Resp B/P Pulse Ox O2 Delivery O2 Flow Rate FiO2 02/20/17 08:00 96.9 77 18 149/70 98 02/20/17 00:00 97.1 82 19 149/70 99 02/19/17 20:00 98.3 82 19 138/66 96 02/19/17 16:00 98.6 80 20 155/70 97 02/19/17 12:00 97.4 84 20 150/70 99 I/O 02/19/17 02/19/17 02/19/17 02/20/17 02/20/17 02/20/17 07:00 15:00 23:00 07:00 15:00 23:00 Intake Total 240 ml 0 ml 240 ml 240 ml Output Total 1500 ml 1550 ml Balance -1260 ml 0 ml 240 ml -1310 ml Intake Oral 240 ml 240 ml 240 ml IV Total 0 ml Output Urine Total 1500 ml 1550 ml # Voids 1 # Bowel Movements 0 1 0 (Freddie Barahona MD R2) Result Diagram: 02/18/1752002/18/17520 Objective Remarks GENERAL: NAD. SKIN: Status post left BKA. Incision clean/dry/intact. Sutures removed. HEAD: Atraumatic. Normocephalic. CARDIOVASCULAR: RRR RESPIRATORY: Clear to auscultation. Breath sounds equal bilaterally. No wheezes , rales, or rhonchi. GASTROINTESTINAL: Abdomen soft, non-tender, nondistended. No hepato-splenomegaly , or palpable masses. No guarding. MUSCULOSKELETAL: Status post left BKA. Incision clean/dry/intact and well healing. NEUROLOGICAL: Awake and alert. Cranial nerves grossly intact. PSYCH: Normal mood and affect Procedures Left foot ankle incision and drainage with partial resection of the fifth metatarsal head Left BKA (Freddie Barahona MD R2) A/P Assessment and Plan 56-year-old male with a past medical history of complicated type 2 diabetes presented meeting sepsis criteria with diabetic left foot wound. 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 Rehabilitation medicine consulted and is helping with discharge needs Discharge Planning Patient cleared from orthopedic standpoint. Patient cleared for SNF with PT however his Medicaid will not cover this. He needs continued physical therapy and is currently not safe for discharge. [facility] has evaluated the patient very early during his hospitalization and did not accept him. The patient will be discharged once he is able to care for himself safely with outpatient physical therapy. Case management continues to look for a Medicaid bed. (Freddie Barahona MD R2) Attending Attestation Patient seen and examined. Case reviewed and discussed with the resident team. Agree with plan of care as discussed with me and documented in the resident note. 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 Antibiotic history is documented below. Patient cleared for rehabilitation, placement issues as above. Consult rehabilitation medicine, Dr. Alves--> helping to assess readiness for discharge home [employer]/orthopedic/prosthetic consult to determine if the patient is ready for prosthesis. Antibiotic history: Per infectious disease Augmentin 875 mg every 12 hours (started 01/02-01/06) Clindamycin IV (12/22-12/28) Zosyn also discontinued (12/22-12/26) Antibiotics per ID: Unasyn IV every 6 hours discontinued ( 12/26-01/01) (2) Tardive dyskinesia Status: Resolved Plan: Improving. Likely 2/2 antipsychotic. Not disturbing to patient but he likes to work on electronics. Patient seen by psychiatry, Abilify discontinued. He started citalopram and Seroquel per their recommendations. Much improved since changes in medications were made. (3) Hypertension Status: Chronic Plan: Currently resolved off his blood pressure medications. Patient was on hydrochlorothiazide, SUMMER inhibitor, and amlodipine. We'll resume medications when necessary increased blood pressure. (4) Hyperlipidemia Status: Chronic Plan: Labs from 12/11 show elevated LDL of 120. 10 year ASCVD risk score is 12% - recommendation is for a high-intensity statin * Started atorvastatin (5) Thrombocytopenia Status: Acute Plan: Hematology consult. Continue to monitor. HIT antibody positive; see HIT problem Heparin discontinued (6) Anemia Status: Chronic Plan: Stable. Hematology consulted. Status post transfusion 4. Anemia workup unremarkable. (7) Stage 1 decubitus ulcer in diabetic patient Status: Acute Plan: Notified 01/03 at 11 AM of stage I decubitus at the patient's sacrum. On breakdown of epidermis, Stage 2 ulcer. Wound care nursing consulted Offload areas of pressure per protocol Continue to work with physical therapy Soft mattress order Further orders per wound care (8) Diabetes Status: Chronic Plan: Hemoglobin A1c on 12/11 was 6.9 Sliding scale insulin while in hospital. Patient has had diarrhea on metformin, likely will need to be discontinued as an outpatient and put on glipizide (9) Social issues Status: Acute Plan: Case management consulted to assist with disposition. Patient has no one to help care for him at home and is currently not safe for discharge. Details as above. Consider transfer to [place]. (10) Anxiety and depression Status: Acute Plan: Abilify discontinued. 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 HIT positive is likely a false positive result Continue to monitor platelets Patient has been started on fondaparinux per hematology Medical history: Heparin discontinued Argatroban discontinued per hematology (12) TAYLOR (acute kidney injury) Status: Resolved Plan: Acute on chronic renal disease. Creatinine stable. DC IV fluids, encourage by mouth intake. Continue to monitor. (13) FEN/DVT PPX/GI PPX Status: Acute Plan: Fluids: None. Encouraged PO intake Electrolytes: Will monitor and replace as needed Nutrition: Diabetic diet DVT Prophylaxis: Fondaparinux per orthopedic surgery. Okay from hematology to be on heparin prophylactically because of false positive HIT. (Freddie Barahona MD R2) Problem Qualifiers (1) Diabetic foot ulcer: Qualified Code: E11.621 - Diabetic ulcer of toe of left foot associated with type 2 diabetes mellitus, unspecified ulcer stage (2) Hypertension: Qualified Code: I10 - Essential hypertension (3) Hyperlipidemia: Qualified Code: E78.5 - Hyperlipidemia, unspecified hyperlipidemia type (4) Anemia: Qualified Code: D64.9 - Anemia, unspecified type (5) Diabetes: Freddie Barahona MD R2 Feb 20, 2017 08:48 Shereen Barahona MD Feb 20, 2017 11:44
[2017-02-20] MEDS: MUPIROCIN 2% CREAM 15 GM TOPICAL SCH (09:00)
[2017-02-20] MEDS: LACTOBACILLUS ACIDOPHILUS 1 GM PACKET PO SCH ×2 (10:05→13:00)
[2017-02-20] MEDS: CITALOPRAM HYDROBROMIDE 20 MG TAB PO SCH (10:05)
[2017-02-20] MEDS: MULTIVITAMINS/MINERALS THERAPEUTIC TAB PO SCH (10:05)
[2017-02-20] MEDS ORDERED: QUET1TAB7 PO (11:34)
--- NOTE | 2017-02-20 11:39 | HHI.DS ---
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 Antibiotic history is documented below. Patient cleared for rehabilitation, placement issues as above. Consult rehabilitation medicine, Dr. Alves--> helping to assess readiness for discharge home [facility]/orthopedic/prosthetic consult to determine if the patient is ready for prosthesis. Antibiotic history: Per infectious disease Augmentin 875 mg every 12 hours (started 01/02-01/06) Clindamycin IV (12/22-12/28) Zosyn also discontinued (12/22-12/26) Antibiotics per ID: Unasyn IV every 6 hours discontinued ( 12/26-01/01) (2) Tardive dyskinesia Diagnosis: Secondary Plan: Improving. Likely 2/ antipsychotic. Not disturbing to patient but he likes to work on electronics. Patient seen by psychiatry, Ariel discontinued. He started citalopram and Seroquel per their recommendations. Much improved since changes in medications were made. (3) Hypertension Diagnosis: Secondary Plan: Currently resolved off his blood pressure medications. Patient was on hydrochlorothiazide, SUMMER inhibitor, and amlodipine. We'll resume medications when necessary increased blood pressure. (4) Hyperlipidemia Diagnosis: Secondary Plan: Labs from 12/11 show elevated LDL of 120. 10 year ASCVD risk score is 12% - recommendation is for a high-intensity statin * Started atorvastatin (5) Thrombocytopenia Diagnosis: Secondary Plan: Hematology consult. Continue to monitor. HIT antibody positive; see HIT problem Heparin discontinued (6) Anemia Diagnosis: Secondary Plan: Stable. Hematology consulted. Status post transfusion 4. Anemia workup unremarkable. (7) Stage 1 decubitus ulcer in diabetic patient Diagnosis: Secondary Plan: Notified 01/03 at 11 AM of stage I decubitus at the patient's sacrum. On breakdown of epidermis, Stage 2 ulcer. Wound care nursing consulted Offload areas of pressure per protocol Continue to work with physical therapy Soft mattress order Further orders per wound care (8) Diabetes Diagnosis: Secondary Plan: Hemoglobin A1c on 12/11 was 6.9 Sliding scale insulin while in hospital. Patient has had diarrhea on metformin, likely will need to be discontinued as an outpatient and put on glipizide (9) Social issues Diagnosis: Secondary Plan: Case management consulted to assist with disposition. Patient has no one to help care for him at home and is currently not safe for discharge. Details as above. Consider transfer to [place]. (10) Anxiety and depression Diagnosis: Secondary Plan: Abilify discontinued. Continue Celexa 20 and Seroquel per psychiatry -Psychiatry consulted: Diagnosed with dysthymia; he has appropriate follow-up with psychiatry services in the community (11) HIT (heparin-induced thrombocytopenia) Diagnosis: Secondary Plan: Hematology consult Serotonin release assay negative. HIT positive is likely a false positive result Continue to monitor platelets Patient has been started on fondaparinux per hematology Medical history: Heparin discontinued Argatroban discontinued per hematology (12) TAYLOR (acute kidney injury) Diagnosis: Secondary Plan: Acute on chronic renal disease. Creatinine stable. DC IV fluids, encourage by mouth intake. Continue to monitor. (13) FEN/DVT PPX/GI PPX Diagnosis: Secondary Plan: Fluids: None. Encouraged PO intake Electrolytes: Will monitor and replace as needed Nutrition: Diabetic diet DVT Prophylaxis: Fondaparinux per orthopedic surgery. Okay from hematology to be on heparin prophylactically because of false positive HIT. Consultants Critical care Podiatry Infectious disease Wound care Rehabilitative medicine Physical therapy Procedures Left foot ankle incision and drainage with partial resection of the fifth metatarsal head Left BKA Brief History Patient is a 56-year-old male with a past medical history of type 2 diabetes, chronic left foot ulcer of at least 3 years, and depression that presented to the [place] ED with a chief complaint of nausea, vomiting, diarrhea , and fatigue for 5 days duration. Patient states that on Monday 12/18, he started having nonbloody, non-mucus diarrhea at least 3-4 times a day. He felt so weak that she had difficulty walking and sitting up/getting up from bed or a chair. He did not feel feverish but had chills constantly. Patient denies dysuria but states that his urine looked orange in color. He also had decreased by mouth intake due to nausea, vomiting, and dry heaving. Patient was recently restarted on metformin for diabetes and Abilify and Celexa for depression at his PCP visits with Dr. Sam Barahona, PGY 2 on 12/08. He was also scheduled to see machine ii cutter Dr. Back at the wound care at the wound care clinic next week for management of his foot ulcer. Patient states that he lives at home with his aunt. Dr. Gavin spoke with patient's relative, Dr. Botello ([phone]), who mentioned to him that the patient lives with his mom who is 90 years old and demented. Patient has decreased ability to take care of himself and may need placement in a different living situation. The foot ulcer is chronic and patient has dealt with it for at least 3 years. Previous debridements were performed by Dr. Jonas cárdenas who is an orthopedic surgeon in on Saturday. Patient states that he was not able to continue management of the ulcer and diabetes in the last 2 years due to personal issues. CBC/BMP: 02/18/1721 02/18/1721 Significant Findings Laboratory Tests Test 02/18/17 05:21 Red Blood Count 3.08 MIL/MM3 (4.50-5.90) Hemoglobin 9.5 GM/DL (13.0-17.0) Hematocrit 28.8 % (39.0-51.0) Red Cell Distribution Width 19.8 % (11.6-17.2) Platelet Count 109 TH/MM3 (150-450) Monocytes (%) (Auto) 19.8 % (0.0-8.0) Eosinophils (%) (Auto) 5.6 % (0.0-4.0) Monocytes # (Auto) 1.1 TH/MM3 (0-0.9) Chloride Level 109 MEQ/L (98-107) Blood Urea Nitrogen 45 MG/DL (7-18) Estimat Glomerular Filtration 57 ML/MIN (>89) Rate Random Glucose 117 MG/DL (74-106) PE at Discharge GENERAL: NAD. SKIN: Status post left BKA. Incision clean/dry/intact. Sutures removed. HEAD: Atraumatic. Normocephalic. CARDIOVASCULAR: RRR RESPIRATORY: Clear to auscultation. Breath sounds equal bilaterally. No wheezes , rales, or rhonchi. GASTROINTESTINAL: Abdomen soft, non-tender, nondistended. No hepato-splenomegaly , or palpable masses. No guarding. MUSCULOSKELETAL: Status post left BKA. Incision clean/dry/intact and well healing. NEUROLOGICAL: Awake and alert. Cranial nerves grossly intact. PSYCH: Normal mood and affect Hospital Course Mr. Botello came in the hospital septic with an infected diabetic foot wound. He was initially admitted to the ICU with CC, podiatry, ID consults. He underwent partial resection of the 5th left metatarsal in hopes of salvaging his leg. 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 He was transferred out of the ICU shortly after his initial hospitalization, but it was determined by multiple specialists, including ID, podiatry, wound care that his infection needed at least a BKA. He initially refused this procedure but then finally consented to it. Orthopedic surgery performed a L BKA and the patient has been recovering well from this. ID recommended 5 days more of PO antibiotics which he has completed. He was safe for discharge in January to a rehab or SNF, but he was denied by [facility] rehab. Some chronic problems are worth mentioning: the patients first visit with an MD in years was with me in November. We starting him on Metformin, but he developed diarrhea, so we were going to try glipizide on d/c. Additionally, we started atorvastatin and amlodipine. We were going to try lisinopril, but he developed acute on chronic renal disease, so I would like him to see nephro as an outpatient before restarting lisinopril. Additionally, he has severe dysthymia and requires a great deal of encouragement to work with PT, which will likely slow his rehab a bit. On February 20, case management was able to find him up at the snf facility [facility]. Discharge was placed. Pt Condition on Discharge: Fair Discharge Disposition: Discharge to SNF Discharge Instructions DIET: Follow Instructions for: Diabetic Diet Activities you can perform: Weight Bearing as Eloisa, See Additionl Instruction Activities to Avoid: Weight Bearing Follow up Referrals: Orthopedics - 10 Days @ [facility] with Tang Moctezuma MD PCP Follow-up - 1 Week Physical Medicine & Rehab - 1 Month with Chanell Alves MD New Orders: CBC WITH DIFF - 1 Week COMP MET PROF (CMP) - 1 Week New Medications: Glipizide (Glipizide) 5 Mg Tab 5 MG PO DAILY Take 30 minutes before a meal Blood Sugar Management #30 Ref 0 TAB Atorvastatin (Atorvastatin) 20 Mg Tab 20 MG PO HS #30 TAB Citalopram (Celexa) 20 Mg Tab 20 MG PO DAILY #30 TAB Docusate Sodium (Dok) 100 Mg Cap 100 MG PO BID #60 CAP Hydrocortisone Topical (Hydrocortisone Topical) 2.5% Cream 1 APPLIC TOPICAL Q6H PRN ITCHING #1 TUBE Quetiapine (Quetiapine) 25 Mg Tab 50 MG PO HS #30 TAB ([Fondaparinux Inj]) 2.5 MG/0.5 ML INJ 2.5 MG SQ Q24H #10 SYRINGE Continued Medications: Onetouch Lancets (Onetouch Lancets) 1 Mis Mis 1 BOX .ROUTE DIRECTED Blood Sugar Management #1 Ref 6 BOX Onetouch Ultra 2 Glucose System (Onetouch Ultra 2 Glucose System) 1 Kit Kit 1 KIT .ROUTE DIRECTED Blood Sugar Management #1 Ref 0 KIT Onetouch Ultra Test Strips (Onetouch Ultra Test Strips) 1 Gloria Gloria 1 STRIP .ROUTE DIRECTED check your sugar every other day. get a measurement before meals and after meals on different days. Blood Sugar Management #100 Ref 6 BOX Discontinued Medications: Citalopram (Celexa) 10 Mg Tab 10 MG PO DAILY Control Depression #30 Ref 0 TAB Lisinopril (Lisinopril) 5 Mg Tab 5 MG PO DAILY Blood Pressure Management #30 Ref 0 TAB Metformin ER (Metformin ER) 1,000 Mg Stephanie 1000 MG PO DAILY With evening meal Blood Sugar Management #30 Ref 0 TAB Freddie Barahona MD R2 Feb 20, 2017 11:38
[2017-02-20 12:00] VITALS: BP 114/57; PULSE 81; RESP 18; TEMP 97.6; O2SAT 98
[2017-02-20] MEDS ORDERED: CITA20TA4 PO (12:49)
[2017-02-20 16:00] VITALS: BP 127/70; PULSE 78; RESP 18; TEMP 98; O2SAT 98
== END 2017-02-20 16:48 | DRG 853 ==
LOC: NEPE 21:39 → NEDA 12-22 00:52 → N03B 12-22 03:00 → N07B 12-28 16:20
PROVIDERS: ADMIT Family Medicine; ATTEND Family Medicine
PROC: 0T9B70Z Drainage of Bladder with Drainage Device, Via Natural or Artificial Opening (ICD-10-PCS; 2016-12-22)
PROC: 0H9NXZX Drainage of Left Foot Skin, External Approach, Diagnostic (ICD-10-PCS; 2016-12-22)
PROC: 30233N1 Transfusion of Nonautologous Red Blood Cells into Peripheral Vein, Percutaneous Approach (ICD-10-PCS; 2016-12-22)
PROC: 0QBP0ZZ Excision of Left Metatarsal, Open Approach (ICD-10-PCS; principal; 2016-12-23 07:54)
PROC: 0Y6J0Z1 Detachment at Left Lower Leg, High, Open Approach (ICD-10-PCS; 2017-01-01)
DX: A41.9 Sepsis, unspecified organism (principal); A48.0 Gas gangrene; R65.21 Severe sepsis with septic shock; E87.2 Acidosis; L89.151 Pressure ulcer of sacral region, stage 1; N17.9 Acute kidney failure, unspecified; E11.22 Type 2 diabetes mellitus with diabetic chronic kidney disease; N18.3 Chronic kidney disease, stage 3 (moderate); E11.42 Type 2 diabetes mellitus with diabetic polyneuropathy; D89.9 Disorder involving the immune mechanism, unspecified; L89.152 Pressure ulcer of sacral region, stage 2; M86.172 Other acute osteomyelitis, left ankle and foot; L03.115 Cellulitis of right lower limb; L02.612 Cutaneous abscess of left foot; L03.116 Cellulitis of left lower limb; M86.672 Other chronic osteomyelitis, left ankle and foot; N39.0 Urinary tract infection, site not specified; E11.621 Type 2 diabetes mellitus with foot ulcer; D69.59 Other secondary thrombocytopenia; L97.529 Non-pressure chronic ulcer of other part of left foot with unspecified severity; Z79.84 Long term (current) use of oral hypoglycemic drugs; I12.9 Hypertensive chronic kidney disease with stage 1 through stage 4 chronic kidney disease, or unspecified chronic kidney disease; F41.9 Anxiety disorder, unspecified; D64.9 Anemia, unspecified; R19.7 Diarrhea, unspecified; E78.5 Hyperlipidemia, unspecified; E11.65 Type 2 diabetes mellitus with hyperglycemia; F34.1 Dysthymic disorder; E11.69 Type 2 diabetes mellitus with other specified complication; G24.01 Drug induced subacute dyskinesia; Z59.9 Problem related to housing and economic circumstances, unspecified; Z91.19 Patient's noncompliance with other medical treatment and regimen; E66.9 Obesity, unspecified; D75.82 Heparin induced thrombocytopenia (HIT); E87.5 Hyperkalemia; B96.20 Unspecified Escherichia coli [E. coli] as the cause of diseases classified elsewhere; B96.5 Pseudomonas (aeruginosa) (mallei) (pseudomallei) as the cause of diseases classified elsewhere; L27.1 Localized skin eruption due to drugs and medicaments taken internally; T36.0X5A Adverse effect of penicillins, initial encounter; Y92.239 Unspecified place in hospital as the place of occurrence of the external cause; R25.1 Tremor, unspecified
CPT/HCPCS: 36430; 36600; 71010; 71020; 73630; 73718; 76775; 76937; 80048; 80053; 80202; 81001; 82248; 82272; 82550; 82552; 82565; 82607; 82746; 82805; 82948; 83010; 83540; 83550; 83605; 83615; 83690; 83735; 84155; 84238; 84425; 85007; 85014; 85018; 85025; 85027; 85060; 85384; 85610; 85730; 86022; 86317; 86403; 86703; 86705; 86803; 86850; 86880; 86900; 86901; 86920; 87015; 87040; 87070; 87077; 87086; 87102; 87116; 87147; 87185; 87186; 87205; 87206; 87641; 88304; 88305; 88307; 88311; 93005; 93971; 94150; 94640; 94664; 96361; 96374; 96375; J0295; J0610; J0696; J0883; J1644; J1652; J1720; J1815; J1940; J2175; J2250; J2270; J2370; J2405; J2543; J3010; J3370; J7030; J7040; J7050; J7120; J7613; L1830; P9016; P9040